=== PATIENT | female | born 1945 | race Caucasian/White ===

== ENCOUNTER 2017-02-05 12:44 | Inpatient (IN) | payer OTHER, MEDICARE ==
[~2017-02-05] VITALS: Ht 175.3 cm; Wt 125.8 kg
[~2017-02-05 12:44] MED LIST: KEFLEX500 M1 PO
--- NOTE | 2017-02-05 12:50 | ED GENERAL ADULT ---
History of Present Illness General Chief Complaint: General Adult Stated Complaint: BIBA UNABLE TO AMBULATE X2 WEEKS Source: patient, old records, EMS Exam Limitations: no limitations Vital Signs & Intake/Output Vital Signs & Intake/Output Vital Signs Date Time Temp Pulse Resp B/P B/P Pulse O2 O2 Flow FiO2 Mean Ox Delivery Rate 02/05 1832 97.0 51 18 148/60 97 Room Air 02/05 1732 97.5 51 18 148/63 95 Room Air Room Air 02/05 1452 46 18 139/65 94 Room Air 02/05 1309 95 Room Air 02/05 1248 97.3 46 18 133/60 94 Room Air Allergies Coded Allergies: sitagliptin (From 2theloo) (Severe, THROAT CLOSURE 02/05/17) Reconcile Medications Amlodipine Besylate 10 MG TABLET 1 TAB PO DAILY HEART (Reported) Aspirin (Aspirin*) 81 MG TAB.CHEW 1 TAB PO DAILY HEART HEALTH (Reported) Calcitriol 0.5 MCG CAPSULE 1 CAP PO DAILY SUPPLEMENT (Reported) Carvedilol 12.5 MG TABLET 1 TAB PO BID HEART (Reported) Febuxostat (Uloric) 40 MG TABLET 1 TAB PO DAILY UNKNOWN (Reported) Torsemide 20 MG TABLET 1 TAB PO DAILY WATER RETENTION (Reported) Triage Nurses Notes Reviewed? yes Onset: Abrupt Duration: week(s): (1), constant, continues in ED, getting worse Timing: single episode today Severity: mild, moderate Severity Numbers: 7 No Modifying Factors: none LMP (ages 10-50): post menopausal : No Patient currently breastfeeds: No HPI: 72-year-old female with past medical history of CKD, hypertension, and diabetes presents for evaluation of bilateral lower extremity edema. Patient reports that her leg started swelling about 2 weeks ago and have gradually been getting worse. She notified her primary care doctor who advised to double the dose of her diuretic she has been doing for the past week without any improvement. Patient is reporting pain in her left ankle that gets worse with any type of movement. She states that she has been having a very difficult time walking due to the lower extremity edema. She denies any chest pain, shortness of breath, recent trauma, recent surgery, malignancy, previous history of DVT, fever, estrogen use, smoking, abdominal pain, back pain, hemoptysis or any other associated symptoms. (ROME CHICAS PA-C) Past History Travel History Traveled to [place] past 21 day No Medical History Any Pertinent Medical History? see below for history Cardiovascular: hypertension Musculoskeletal: gout Endocrine: diabetes Blood Disorders: anemia Surgical History Surgical History: non-contributory Psychosocial History What is your primary language Yi Family History Hx Contributory? Yes (ROME CHICAS PA-C) Review of Systems Review of Systems Constitutional: Reports: no symptoms. EENTM: Reports: no symptoms. Respiratory: Reports: no symptoms. Cardiovascular: Reports: no symptoms, edema. GI: Reports: no symptoms. Genitourinary: Reports: no symptoms. Musculoskeletal: Reports: see HPI (ANKLE), joint swelling. Skin: Reports: no symptoms. Neurological/Psychological: Reports: no symptoms. Hematologic/Endocrine: Reports: no symptoms. Immunologic/Allergic: Reports: no symptoms. All Other Systems: Reviewed and Negative (ROME CHICAS PA-C) Physical Exam Physical Exam General Appearance: well developed/nourished, no apparent distress, alert, obese Head: atraumatic, normal appearance Eyes: Bilateral: normal appearance, PERRL, EOMI. Ears, Nose, Throat: normal pharynx, normal ENT inspection, hearing grossly normal Neck: normal inspection, supple, full range of motion Respiratory: normal breath sounds, chest non-tender, no respiratory distress, lungs clear Cardiovascular: regular rate/rhythm, edema, normal peripheral pulses Peripheral Pulses: 2+ radial (R), 2+ radial (L), 1+ tibialis posterior (R), 1+ tibialis posterior ( L) Gastrointestinal: normal bowel sounds, soft, non-tender, no organomegaly Back: normal inspection, normal range of motion, no vertebral tenderness Extremities: normal capillary refill, limited range of motion, swelling, tenderness Neurologic/Psych: no motor/sensory deficits, awake, alert, oriented x 3, abnormal gait Skin: intact, normal color, warm/dry Lymphatic: no anterior cervical johana Comments: There is bilateral severe nonpitting edema located in both lower extremities. There is no erythema. There is pain with palpation of the bilateral heels and ankles. No bruising. Range of motion of the bilateral lower extremities is decreased due to pain and swelling. Patient is unable to ambulate on her own. She is unable to bear weight. Core Measures ACS in differential dx? Yes CVA/TIA Diagnosis: No Severe Sepsis Present: No Septic Shock Present: No (ROME CHICAS PA-C) Progress Differential Diagnoses I considered the following diagnoses in my evaluation of the patient: [DVT, anasarca, CHF, chronic kidney disease, kidney failure, electrolyte disturbance, acute coronary syndrome, PE, arrhythmia] Plan of Care: Orders Procedure Date/time Status Heart Healthy Diet 02/06 B Active TROPONIN LEVEL 02/06 0600 Active CBC WITHOUT DIFFERENTIAL 02/06 0600 Active BASIC ELECTROLYTES PLUS BUN&CR 02/06 06 Active EKG 02/06 0600 Active TROPONIN LEVEL 02/05 2000 Active EKG 02/05 2000 Active Hemo-Dialysis 02/05 1901 Active FingerStick- Glucose 02/05 1736 Active Vital Signs 02/05 1732 Active Teach/Educate 02/05 1732 Active Pain Treatment and Response 02/05 1732 Active Nutritional Intake, Monitor 02/05 1732 Active Isolation 02/05 1732 Active Intake & Output 02/05 1732 Active Patient Care Conference 02/05 1732 Active Activity/Ambulation 02/05 1732 Active US-RENAL/KIDNEY 02/05 1722 Active Weight 02/05 1722 Active Intake & Output 02/05 1722 Active ECHOCARDIOGRAM 02/05 1722 Active Admit to inpatient 02/05 1702 Active Code Status 02/05 1702 Active Pathway - chart 02/05 1649 Active House Staff 02/05 1649 Active Patient Data 02/05 1649 Active Code Status 02/05 1649 Complete Patient Data 02/05 1620 Active EKG 02/05 1317 Active Telemetry/Lgsw 02/05 1316 Active URINALYSIS 02/05 1316 Active TROPONIN LEVEL 02/05 1316 Complete MAGNESIUM 02/05 1316 Complete D-DIMER 02/05 1316 Complete COMPREHENSIVE METABOLIC PANEL 02/05 1316 Complete CBC WITHOUT DIFFERENTIAL 02/05 1316 Complete B-TYPE NATRIURETIC PEP (BNP) 02/05 1316 Complete VTE Mechanical Prophylaxis 02/05 UNK Active Telemetry/Lgsw 02/05 UNK Active Current Medications Sig/Cole Start time Last Medication Dose Stop Time Status Admin Aspirin 81 MG DAILY 02/06 1000 AC (Aspirin) Acetaminophen 325 MG Q6 PRN 02/05 1700 AC (Tylenol) Heparin Sodium 5,000 UNIT Q8 02/05 1648 AC (Porcine) Laboratory Tests 02/05/17 1320: Anion Gap 17 H, Estimated GFR 7 L, BUN/Creatinine Ratio 20.0, Glucose 137 H, Calcium 9.1, Magnesium 2.4 H, Total Bilirubin 0.9, AST 12 L, ALT 19, Alkaline Phosphatase 170 H, Troponin I < 0.01, [id number]-[id number] Pept 44406 H, Total Protein 6.6, Albumin 3.7, Globulin 2.9, Albumin/Globulin Ratio 1.3, D-Dimer High Sensitivty 305 H, CBC w Diff NO MAN DIFF REQ, RBC 4.21, MCV 81.4, MCH 26.5 L, RDW 17.7 H, MPV 8.5, Gran % 74.2, Lymphocytes % 11.6 L, Monocytes % 8.8, Eosinophils % 4.6, Basophils % 0.8, Absolute Granulocytes 7.2 H, Absolute Lymphocytes 1.1 L, Absolute Monocytes 0.9 H, Absolute Eosinophils 0.5, Absolute Basophils 0.1, PUBS MCHC 32.5 L 1:30 PM: Patient will have a workup to evaluate lower extremity edema including blood work and ultrasound. We'll follow up on results. 4:08 PM: Patient is unable to ambulate due to swelling. Her creatinine is back at 6.2 and we do not have a previous lab results to compare to. Patient reports that normally she runs in the 2-3 range. Additionally BNP is back at 14,900. EKG is also showing a junctional escape rhythm which could represent ischemia however patient is not complaining of any chest pain or shortness of breath. She is also on a beta matt which may be worsening the bradycardia and kidney disease. Patient's edema may be multifactorial related to both chronic kidney disease and CHF. Patient needs to be admitted for further evaluation. Spoke with the hospitalist and MOD. Discussed with Dr. Campoverde and he agrees the plan. (JUAN FRANCISCO REYES,ROME) Diagnostic Imaging: Viewed by Me: Radiology Read, Ultrasound. Initial ED EKG: junctional ewscape rhythm, left afb, abnorma t waves consider ischemia in lateral leads Comments: ATIENT: GILL CUETO PRESENT AGE: 72 PATIENT ACCOUNT NO: [id number] : 47 LOCATION: [facility] ORDERING PHYSICIAN: ROME CHICAS PA-C SERVICE DATE: 02/05/17 EXAM TYPE: RAD - XRY-PORTABLE CHEST XRAY EXAMINATION: XR PORTABLE CHEST CLINICAL INFORMATION: Lower extremity edema COMPARISON: None TECHNIQUE: Portable frontal view of the chest was obtained. FINDINGS: The lung volumes are low. The cardiac silhouette is prominent. There is pulmonary venous redistribution. There is elevation of the right hemidiaphragm. There is blunting of the right costophrenic angle questionable for a small right pleural effusion. The left lung is clear. There is no left pleural effusion. There is no pneumothorax. IMPRESSION: Prominent cardiac silhouette. Elevated right hemidiaphragm. Low lung volumes. Question pulmonary venous redistribution and small right pleural effusion. DICTATED BY: RAMU CARUSO MD. DATE/TIME DICTATED:02/05/171334 DRUG ENFORCEMENT AGENT:COCHRAN DATE/TIME TRANSCRIBED:02/05/171334 CONFIDENTIAL, DO NOT COPY WITHOUT APPROPRIATE AUTHORIZATION. <Electronically signed in Other Vendor System> SIGNED BY: RAMU CARUSO MD. [id number] PATIENT: GILL CUETO PRESENT AGE: 72 PATIENT ACCOUNT NO: [id number] : 47 LOCATION: [facility] ORDERING PHYSICIAN: ROME CHICAS PA-C SERVICE DATE: 02/05/17 EXAM TYPE: US - US-EXT BILAT VENOUS DOPPLER EXAMINATION: US TRIPLEX OF LOWER EXTREMITIES, BILATERAL CLINICAL INFORMATION: Swelling COMPARISON: None TECHNIQUE: Color-flow triplex imaging with spectral analysis and compression Doppler were performed on the lower extremities. FINDINGS: Respiratory variation, normal compression and augmented flow are noted throughout the lower extremities. The visualized common femoral vein, superficial femoral vein, profunda femoral vein, popliteal vein and midcalf peroneal and posterior tibial venous segments show no evidence of deep venous thrombosis. There is no Fierro's cyst. IMPRESSION: Normal triplex scan without evidence of deep venous thrombosis involving the lower extremities. DICTATED BY: RAMU CARUSO MD. DATE/TIME DICTATED:02/05/171516 DRUG ENFORCEMENT AGENT:RAD.COCHRAN DATE/TIME TRANSCRIBED:02/05/171516 CONFIDENTIAL, DO NOT COPY WITHOUT APPROPRIATE AUTHORIZATION. <Electronically signed in Other Vendor System> SIGNED BY: RAMU CARUSO MD [id number] (JUAN FRANCISCO REYES,ROME) Departure Departure Disposition: STILL A PATIENT Condition: Stable Clinical Impression Primary Impression: Chronic kidney disease (CKD) Qualifiers: Chronic kidney disease stage: stage 4 (severe) Qualified Code: N18.4 - Chronic kidney disease, stage 4 (severe) Secondary Impressions: Anasarca associated with disorder of kidney Departure Forms: Customer Survey General Discharge Information Admission Note Spoke With: DIOR NOVAK MD Documentation of Exam: Documentation of any treatments & extenuating circumstances including Concerns Regarding Discharge (functional status, medication knowledge or non-compliance, living conditions, etc.) that warrant an admission rather than observation: Patient requires admission for chronic kidney disease and anasarca. He is also unable to move around her home by herself to lower extremity edema. Her creatinine is elevated to 6.2 which is twice her usual level. She will need nephrology consult, cardiology consult, serial labs, IV medications, physical therapy consult. (ROME CHICAS PA-C) PA/HYDROTREATER OPERATOR Co-Sign Statement Statement: ED Attending supervision documentation- [X] I saw and evaluated the patient. I have also reviewed all the pertinent lab results and diagnostic results. I agree with the findings and the plan of care as documented in the PA's/HYDROTREATER OPERATOR's documentation. [] I have reviewed the ED Record and agree with the PA's/HYDROTREATER OPERATOR's documentation. [] Additions or exceptions (if any) to the PAs/HYDROTREATER OPERATOR's note and plan are summarized below: [] (LESLEY CHARLTON,SUDHEER Gann) Critical Care Note Critical Care Note Critical Care Time: non-applicable (ROME CHICAS PA-C) ED Attending Observation Initial Observation Note: I have seen and personally examined GILL CUETO on 02/05/17 at 1758. I agree with the current emergency department documentation. The disposition (admission or discharge) is uncertain at this time, she needs a period of observation for the following reason(s): The ED Nurse caring for this patient has been personally informed as to what the patient is being observed for. (ROME CHICAS PA-C)
--- NOTE | 2017-02-05 12:55 | NUR ---
AZAM FROM HOME W/ C/O BLE EDEMA X'S 2 WEEKS. HAS NOT BEEN SEEN BY PCP ALTHOUGH SHE CALLED TODAY. BEEN UNABLE TO AMBULATE D/T EDEMA. PATIENT HAS RECENTLY BEEN TAKEN OFF ALL DM MEDICATIONS. TO BE STARTED ON DIALYSIS IN THE NEAR FUTURE.
--- NOTE | 2017-02-05 13:23 | NUR ---
LABS SENT (BLUE, 2 GOLD, LAV & HYATT)
[2017-02-05 13:30] LABS: ABSOLUTE BASOPHIL COUNT 0.1 /CUMM (0.0-0.2); ABSOLUTE EOSINOPHIL COUNT 0.5 /CUMM (0.0-0.7); ABSOLUTE GRANULOCYTE CT 7.2 /CUMM (1.4-6.5); ABSOLUTE LYMPH COUNT 1.1 /CUMM (1.2-3.4); ABSOLUTE MONOCYTE COUNT 0.9 /CUMM (0.10-0.60); BASOPHIL % 0.8 % (0.0-2.0); EOSINOPHIL % 4.6 % (0-5); GRANULOCYTE % 74.2 % (42.2-75.2); HEMATOCRIT 34.3 % (37-47); MEAN CORPUSCULAR HGB 26.5 PG (27.0-31.0); MEAN CORPUSCULAR HGB CONC 32.5 G/DL (33.0-37.0); MEAN CORPUSCULAR VOLUME 81.4 FL (81.0-99.0); MEAN PLATELET VOLUME 8.5 FL (7.4-10.4); PLATELET COUNT 158 /CUMM (130-400); RBC DISTRIBUTION WIDTH 17.7 % (11.5-14.5); RED BLOOD CELL CT 4.21 /CUMM (4.20-5.40); WHITE BLOOD CELL COUNT 9.7 /CUMM (4.8-10.8)
--- NOTE | 2017-02-05 13:39 | RADIOLOGY REPORT ---
EXAMINATION: XR PORTABLE CHEST CLINICAL INFORMATION: Lower extremity edema COMPARISON: None TECHNIQUE: Portable frontal view of the chest was obtained. FINDINGS: The lung volumes are low. The cardiac silhouette is prominent. There is pulmonary venous redistribution. There is elevation of the right hemidiaphragm. There is blunting of the right costophrenic angle questionable for a small right pleural effusion. The left lung is clear. There is no left pleural effusion. There is no pneumothorax. IMPRESSION: Prominent cardiac silhouette. Elevated right hemidiaphragm. Low lung volumes. Question pulmonary venous redistribution and small right pleural effusion.
[2017-02-05] MEDS ORDERED: AMLODIPINE BESY10 M1 PO (13:49)
[2017-02-05] MEDS ORDERED: TORSEMIDE20 M1 PO (13:49)
[2017-02-05] MEDS ORDERED: CARVEDILOL12.5 M1 PO (13:49)
[2017-02-05] MEDS ORDERED: ULORIC40 M1 PO (13:49)
[2017-02-05] MEDS ORDERED: ASPIRIN81 M4 PO (13:50)
[2017-02-05] MEDS ORDERED: CALCITRIOL0.5 MC1 PO (13:50)
--- NOTE | 2017-02-05 13:58 | NUR ---
CRITICAL TEST RESULTS [id number] GILL CUETO 72 F TESTS AND RESULTS: BUN 124,CREATNINE 6.2 Results received and read back by: SHELLIE WEISS Results received date and time: 02/05/17 1359 The following provider was notified of the results, and read the results back: ROME JARAMILLO Notified date and time: 02/05/17 at 1357
--- NOTE | 2017-02-05 15:25 | ULTRASOUND REPORT ---
EXAMINATION: US TRIPLEX OF LOWER EXTREMITIES, BILATERAL CLINICAL INFORMATION: Swelling COMPARISON: None TECHNIQUE: Color-flow triplex imaging with spectral analysis and compression Doppler were performed on the lower extremities. FINDINGS: Respiratory variation, normal compression and augmented flow are noted throughout the lower extremities. The visualized common femoral vein, superficial femoral vein, profunda femoral vein, popliteal vein and midcalf peroneal and posterior tibial venous segments show no evidence of deep venous thrombosis. There is no Fierro's cyst. IMPRESSION: Normal triplex scan without evidence of deep venous thrombosis involving the lower extremities.
--- NOTE | 2017-02-05 16:24 | History & Physical ---
ASIFANJELICACHRISTOPHER 02/05/17 1624: General Information and HPI MD Statement: I have seen and personally examined GILL CUETO and documented this H&P. The patient is a 72 year old F who presented with a patient stated chief complaint of [leg edema]. Source of Information: patient, family Exam Limitations: no limitations History of Present Illness: Patient is 72-year-old female with past medical history of CKD (baseline creatinine around 2.5, as per patient), , diet-controlled diabetes, hypertension ,gout who presents to the ED for evaluation of bilateral lower extremity edema. Patient receives all her care at [facility]. She has baseline kidney disease for which she was on torsemide 20 mg daily. Her kidney doctor is Dr. Reyes in [place]. Patient started noticing worsening of her bilateral lower leg edema. She called her ore washer who advised her to take double the dose of diuretics. She has been taking torsemide twice a day since then. However there has been no improvement in her leg edema. She now reports difficulty with ambulation and any movement. Denies any chest pain, shortness of breath, altered mental status, nausea, vomiting, urinary or bowel symptoms. She reports that she has been having regular blood checks every month and her creatinine numbers have been stable around 2.5. She has a AV fistula in her right arm and her ore washer was eventually planning to put her on dialysis. Daughter reports that she has been very weak and lethargic over the past few days. She has no history of cardiac disease and reports that she has been started on carvedilol due to tachycardia in the past. She has anemia due to kidney disease for which she is on oral iron supplementation. She has been on IV iron in the past but has been unable to tolerate it. In the ED vitals were temperature 97.3, pulse 46, respiration 18, blood pressure 133/60, saturating 95% on room air. Pertinent labs showed H&H of 11.1 /35.3(no baseline), MCV 81.4, sodium 142, potassium 4.1, carbon dioxide 17, anion gap of 17, BUN 124, creatinine 6.2( baseline 2.5 as per the patient), magnesium 2.4, alkaline phosphatase 170, troponins less than 0.01, BNP 14,900, d-dimer 305 UA pending EKG showed questionable junctional escape rhythm, prolonged UT, bradycardia Chest x-ray showed prominent cardiac silhouette, questionable pulmonary venous redistribution/small right-sided pleural effusion Ultrasound legs, negative for DVT Allergies/Medications Allergies: Coded Allergies: sitagliptin (From THANG) (Severe, THROAT CLOSURE 02/05/17) Home Med list Amlodipine Besylate 10 MG TABLET 1 TAB PO DAILY HEART (Reported) Aspirin (Aspirin*) 81 MG TAB.CHEW 1 TAB PO DAILY HEART HEALTH (Reported) Calcitriol 0.5 MCG CAPSULE 1 CAP PO DAILY SUPPLEMENT (Reported) Carvedilol 12.5 MG TABLET 1 TAB PO BID HEART (Reported) Febuxostat (Uloric) 40 MG TABLET 1 TAB PO DAILY UNKNOWN (Reported) Torsemide 20 MG TABLET 1 TAB PO DAILY WATER RETENTION (Reported) Past History Travel History Traveled to [place] past 21 day No Medical History Cardiovascular: hypertension Musculoskeletal: gout Endocrine: diabetes Blood Disorders: anemia Surgical History Surgical History: non-contributory Review of Systems Review of Systems Constitutional: Reports: malaise, weakness. EENTM: Reports: no symptoms. Cardiovascular: Reports: edema, peripheral edema. Respiratory: Reports: no symptoms. GI: Reports: no symptoms. Genitourinary: Reports: no symptoms. Musculoskeletal: Reports: back pain. Skin: Reports: no symptoms. Neurological/Psychological: Reports: no symptoms. Hematologic/Endocrine: Reports: no symptoms. Exam & Diagnostic Data Last 24 Hrs of Vital Signs/I&O Vital Signs Date Time Temp Pulse Resp B/P B/P Pulse O2 O2 Flow FiO2 Mean Ox Delivery Rate 02/05 1452 46 18 139/65 94 Room Air 02/05 1309 95 Room Air 02/05 1248 97.3 46 18 133/60 94 Room Air Intake & Output 02/05 1600 02/05 0800 02/05 0000 Intake Total Output Total Balance Patient 124.738 kg Weight Weight Estimated Measurement Method Physical Exam General Appearance Alert, Oriented X3, Cooperative, Mild Distress Skin No Rashes, No Breakdown Skin Temp/Moisture Exam: Warm/Dry Sepsis Skin Exam (color): Normal for Ethnicity HEENT Atraumatic, PERRLA, EOMI, Mucous Membr. moist/pink Neck Supple, No JVD Lymphatic Cervical nl Cardiovascular Normal S1, Normal S2, No Murmurs, bradycardia Lungs diminished breath sounds bilaterally Abdomen Normal Bowel Sounds, Soft, No Tenderness Neurological Normal Speech, Sensation Intact Extremities 3+ pedal edema upto mid thigh bilaterally Vascular Normal Pulses Last 24 Hrs of Labs/Rayshawn: Laboratory Tests 02/05/17 1320: Anion Gap 17 H, Estimated GFR 7 L, BUN/Creatinine Ratio 20.0, Glucose 137 H, Calcium 9.1, Magnesium 2.4 H, Total Bilirubin 0.9, AST 12 L, ALT 19, Alkaline Phosphatase 170 H, Troponin I < 0.01, [id number] Pept 41247 H, Total Protein 6.6, Albumin 3.7, Globulin 2.9, Albumin/Globulin Ratio 1.3, D-Dimer High Sensitivty 305 H, CBC w Diff NO MAN DIFF REQ, RBC 4.21, MCV 81.4, MCH 26.5 L, RDW 17.7 H, MPV 8.5, Gran % 74.2, Lymphocytes % 11.6 L, Monocytes % 8.8, Eosinophils % 4.6, Basophils % 0.8, Absolute Granulocytes 7.2 H, Absolute Lymphocytes 1.1 L, Absolute Monocytes 0.9 H, Absolute Eosinophils 0.5, Absolute Basophils 0.1, PUBS MCHC 32.5 L Assessment/Plan Assessment: Patient is 72-year-old female with past medical history of CKD (baseline creatinine around 2.5, as per patient), , diet-controlled diabetes, hypertension ,gout who presents to the ED for evaluation of bilateral lower extremity edema. In the ED vitals were temperature 97.3, pulse 46, respiration 18, blood pressure 133/60, saturating 95% on room air. Pertinent labs showed H&H of 11.1 /35.3(no baseline), MCV 81.4, sodium 142, potassium 4.1, carbon dioxide 17, anion gap of 17, BUN 124, creatinine 6.2( baseline 2.5 as per the patient), magnesium 2.4, alkaline phosphatase 170, troponins less than 0.01, BNP 14,900, d-dimer 305 UA pending EKG showed questionable junctional escape rhythm, prolonged UT, bradycardia Chest x-ray showed prominent cardiac silhouette, questionable pulmonary venous redistribution/small right-sided pleural effusion Ultrasound legs, negative for DVT Assessment * Acute kidney injury on CKD (no baseline available last creatinine 2.5 per patient) * Anasarca due to kidney injury * New-onset CHF?(Elevated proBNP) * Right hand AV fistula * Bradycardia * Abnormal EKG,? Junctional escape rhythm versus first degree heart block * Anemia of chronic disease * Gout * Diet-controlled diabetes/ was taken of Januvia due to non tolerance * Hypertension Plan * Admit patient to telemetry * 3 sets of troponin and EKG to rule out ACS * Echocardiogram ordered * Strict I's and O's, weight checks * Nephrology consult for worsening kidney function and generalized anasarca * UA ordered and pending. HoldingTorsemide. * Renal ultrasound to rule out obstruction * Cardiology consult for abnormal EKG and new-onset CHF * Holding AV saloni blocking agents beta matt and CCB FOR ?junctional rhythm/ bradycardia. Blood pressure well controlled hydralazine when necessary as needed. * We'll try to get old records from ore washer and telemarketer in [place],her kidney doctor is Dr. Reyes in [place] * Holding fuboxtat gout * DVT prophylaxis subcutaneous heparin * Heart healthy diet * Mild pain pathway * Full code As Ranked By This Provider Problem List: 1. Anasarca associated with disorder of kidney 2. Chronic kidney disease (CKD) Qualifiers Chronic kidney disease stage: stage 4 (severe) Qualified Code: N18.4 - Chronic kidney disease, stage 4 (severe) Core Measures/Miscellaneous Acute Coronary Syndrome ACS Diagnosis: No Cerebrovascular Accident CVA/TIA Diagnosis: No Congestive Heart Failure CHF Diagnosis: No VTE (View Protocol) VTE Risk Factors: Age > 40, Obesity [facility] prophylaxis d/t: No contraindications No VTE Pharm Prophylaxis d/t: No contraindications VTE Diagnosis: No VTE Type: NONE VTE Confirmed by (Test): NONE Sepsis (View Protocol) Severe Sepsis Present: No Septic Shock Septic Shock Present: No Miscellaneous Documentation Attending Case Discussed With: DONNA BARBOUR,ED Robles Primary Care Physician: PATIENT HAS NO PRIMARY CARE DR Patient sees these Specialists ore washer Dr Reyes in [place] Level of Patient Care: Telemetry DIOR NOVAK 02/05/17 1624: Attending MD Review Statement Attending Statement Attending MD Statement: examined this patient, discuss w/resident/PA/NUCLEAR MEDICINE TECHNICIAN, agreed w/resident/PA/NUCLEAR MEDICINE TECHNICIAN, discussed with family, reviewed EMR data (avail), discussed with nursing, discussed with case mgmt, reviewed images, amended to note Attending Assessment/Plan: ASSESSMENT 1. Acute kidney injury on ckd 2. elevated pro bnp 3. junctional rythm abnormal ekg on b matt 4. anemia of chronic disease 5. b/l lower extremity swelling PLAN Admit to telemetry serial cardiac enzymes and ekg, cardio consult, nephro consult, avoid nephrotoxic agents, diuretics use as per nephrology, monitor i/o. hydralazine for bp control, urine studies, USG renal, STOP b blcoker for now, avoid amlodipine. obtain previous records, monitor creatinine gi/dvt prophyalxis plan of care d/wed patient bedside
--- NOTE | 2017-02-05 17:14 | NUR ---
HEART HEALTHY TRAY ORDERED.
--- NOTE | 2017-02-05 17:31 | NUR ---
PT REFUSING HEPARIN AND MOTRIN AT THIS TIME. PT ASSISTED TO REPOSITION IN STRETCHER AND SET UP WITH DINNER TRAY.
--- NOTE | 2017-02-05 17:32 | NUR ---
PT GOING TO ROOM 172 PER NURSE CALLING FOR REPORT.
--- NOTE | 2017-02-05 17:42 | NUR ---
REPORT GIVEN TO CLAY SANTIAGO. TRANSPORT BOOKED AT THIS TIME.
[2017-02-05 18:32] VITALS: BP 148/60
[2017-02-05 23:42] VITALS: BP 114/72
--- NOTE | 2017-02-06 07:19 | PN- Housestaff ---
STU BARBOUR,SOLOMNO 02/06/17 0719: Subjective Follow-up For: RAMO on CKD Lower extremity swelling History of AFib/Flutter Tele-Events Since Last Visit: Sinus Bradycardia 1st degree AVB HR 43-50 PACs Subjective: Patient seen and examined. She is seen sitting upright in her bed resting comfortably. She appears to be in no acute distress. She reports that the swelling in her legs appears mildly improved, however admits that they remain grossly swollen. She otherwise feels fine and has no new subjective complaints. Additionally she denies any headache, fever, chills, chest pain, palpitations, shortness of breath, nausea, vomiting, diarrhea. Review of Systems Constitutional: Reports: see HPI. Objective Last 24 Hrs of Vital Signs/I&O Vital Signs Date Time Temp Pulse Resp B/P B/P Pulse O2 O2 Flow FiO2 Mean Ox Delivery Rate 02/06 1619 97.7 64 18 122/62 92 Room Air 02/06 1540 51 122/64 02/06 1339 118/62 02/06 0819 97.5 48 18 140/62 92 Room Air 02/05 2342 97.5 52 18 114/72 94 Room Air Intake & Output 02/06 1600 02/06 0800 02/06 0000 Intake Total 120 360 Output Total 400 400 50 Balance -400 -280 310 Intake, Oral 120 360 Output, Urine 400 400 50 Patient 123.831 kg 123.519 kg Weight Weight Chair scale Standing Scale Measurement Method Physical Exam General Appearance: Alert, Oriented X3, Cooperative, No Acute Distress Other Physical Findings: General- well developed, morbidly obese elderly woman in no acute distress HEENT- NCAT, PERRL, EOMI, anicteric sclera Chest- S1, S2 w/o m/g/r Lung- CTA bilaterally Abdomen- Soft, obese, nontender, nondistended Neuro- Awake and alert, CN II-XII grossly intact Ext- 4+ bilatearl lower extremity pitting edema Current Medications: Current Medications Sig/Cole Start time Last Medication Dose Route Stop Time Status Admin Acetaminophen 325 MG Q6 PRN 02/05 1700 AC PO Aspirin 81 MG DAILY 02/06 1000 AC 02/06 PO 0858 Calcitriol 0.5 MCG DAILY 02/06 1618 AC 02/06 PO 1812 Febuxostat 40 MG DAILY 02/06 1130 AC 02/06 PO 1339 Heparin Sodium 5,000 UNIT Q8 02/05 1648 AC (Porcine) SC Hydralazine HCl 25 MG BID 02/06 1153 AC 02/06 PO 1339 Non-Formulary 0 SEE ADMIN CRITERIA 02/06 1130 CAN Medication ANY Last 24 Hrs of Lab/Rayshawn Results Last 24 Hrs of Labs/Mics: Laboratory Tests 02/06/17 2235: Sodium Pending, Potassium Pending, Chloride Pending, Carbon Dioxide Pending, Anion Gap Pending, BUN Pending, Creatinine Pending, BUN/Creatinine Ratio Pending 02/06/17 1425: Anion Gap 15, Estimated GFR 7 L, BUN/Creatinine Ratio 19.7, Hepatitis A IgM Ab NONREACTIVE, Hep Bs Antigen NONREACTIVE, Hep B Core IgM Ab Conf NONREACTIVE, Hepatitis C Antibody NONREACTIVE 02/06/17 1038: Urine Color YEL, Urine Clarity CLDY H, Urine pH 6.0, Ur Specific [place] 1.020, Urine Protein 100 H, Urine Ketones NEG, Urine Nitrite NEG, Urine Bilirubin NEG, Urine Urobilinogen 0.2, Ur Leukocyte Esterase MOD H, Ur Microscopic SEDIMENT EXAMINED, Urine RBC 10-15 H, Urine WBC > 75 H, Ur Epithelial Cells RARE, Urine Bacteria MANY H, Hyaline Casts RARE H, Urine Hemoglobin LARGE H, Urine Glucose NEG 02/06/17 0723: Anion Gap 15, Estimated GFR 7 L, BUN/Creatinine Ratio 19.7, Hemoglobin A1c Pending, Phosphorus 7.8 H, Troponin I < 0.01, TSH &T3 &Free T4 Intrp 2.680, CBC w Diff NO MAN DIFF REQ, RBC 4.00 L, MCV 81.9, MCH 26.8 L, RDW 17.0 H, MPV 9.0 , Gran % 74.6, Lymphocytes % 10.7 L, Monocytes % 9.2, Eosinophils % 4.8, Basophils % 0.7, Absolute Granulocytes 6.6 H, Absolute Lymphocytes 1.0 L, Absolute Monocytes 0.8 H, Absolute Eosinophils 0.4, Absolute Basophils 0.1, PUBS MCHC 32.7 L Microbiology 02/06 1512 URINE ROUT: Urine Culture - RECD Assessment/Plan Assessment: 72 year old woman with multiple medical problems significant for chronic kidney disease, right upper extremity AV fistula, NIDDM, HTN, and gout brought in by ambulance due to bilateral lower extremity edema. #Acute Kidney Injury #Chronic Kidney Disease #Hypertension Patient of live source operator Dr. Reyes. She reports baseline creatinine of around 2.9. Vitals were within normal limits upon ED evaluation. Labs were significant for BUN/Cr 124/6.2 and BNP 14,900, d-dimer 305. Renal Ultrasound showed bilateral renal cortical atrophy with live source operator without any obstructuon and a moderate amount of asictic fluid. -Telemetry -Strict I&O's, daily weights -Hold Torsemide -Cardiologuy/Nephrology consults -Records from Dr. Espinal -BEP x3 daily per nephrology -F/U hepatitis/HIV panels History of Gout-Febuxostat 40mg PO Daily Diet-Acetaminophen DVT PPx-subcutaneous heparin Code Status-FULL CODE Problem List: 1. Anasarca associated with disorder of kidney 2. Chronic kidney disease (CKD) Pain Ratin Pain Location: None Pain Goal: Remain pain free Pain Plan: See assessment Tomorrow's Labs & Rationales: BEP CBC DONNA BARBOUR,ED 02/06/17 1313: Attending MD Review Statement Attending Statement Attending MD Statement: examined this patient, discuss w/resident/PA/CNC MECHANIC, agreed w/resident/PA/CNC MECHANIC, reviewed EMR data (avail), discussed with nursing, discussed with case mgmt Attending Assessment/Plan: 72-year-old female past medical history of hypertension, paroxysmal A. fib and atrial tachycardia not on anticoagulation due to bleeding issues and CKD with a baseline creatinine in [place] (with a live source operator there done 12/28) in the threes. She is here with RAMO on CKD with a creatinine going up to 6, and severe acute on chronic lower extremity edema. She is maintaining a saturation on room air and able to talk in full sentences and lie flat and I don't think that she is volume overloaded in terms of her lungs and Dr. Stevens feels that the amlodipine that was started about a month ago for hypertension may have exacerbated her acute and chronic edema. She doesn't have any urgent absolute indications for dialysis and she does have a fistula as she was being prepared for dialysis in the long-term. At this point we are going to hold her Toresmide , rule out renal obstruction and watch the creatinine closely. Have cardiology see her to comment on the junctional rhythm/paroxysmal A. fib given that the heart rate is 48-50. Hold all AV saloni blocking and beta-blocking drugs. We'll use hydralazine for blood pressure control and follow closely.
[2017-02-06 08:19] VITALS: BP 140/62
[2017-02-06 08:38] LABS: ABSOLUTE BASOPHIL COUNT 0.1 /CUMM (0.0-0.2); ABSOLUTE EOSINOPHIL COUNT 0.4 /CUMM (0.0-0.7); ABSOLUTE GRANULOCYTE CT 6.6 /CUMM (1.4-6.5); ABSOLUTE MONOCYTE COUNT 0.8 /CUMM (0.10-0.60); BASOPHIL % 0.7 % (0.0-2.0); EOSINOPHIL % 4.8 % (0-5); GRANULOCYTE % 74.6 % (42.2-75.2); HEMATOCRIT 32.7 % (37-47); MEAN CORPUSCULAR HGB 26.8 PG (27.0-31.0); MEAN CORPUSCULAR HGB CONC 32.7 G/DL (33.0-37.0); MEAN CORPUSCULAR VOLUME 81.9 FL (81.0-99.0); PLATELET COUNT 143 /CUMM (130-400); WHITE BLOOD CELL COUNT 8.9 /CUMM (4.8-10.8)
--- NOTE | 2017-02-06 08:53 | PN- Student ---
TORO KEATING 02/06/17 0844: Subjective Subjective: Patient was seen and examined this morning. Patient is resting comfortably in chair with legs elevated. She doesn't report any overnight events. She states that her legs feel better but don't look better. Patient was able to walk on feet to the bathroom with no difficulty. Denies chest pain, dyspnea, nausea, vomiting, headache, difficulty urinating, abdominal pain. Patient presented yesterday for worsening edema, weakness/feeling "out of it" for about a week. Last week she wasn't able to lift her legs up. She states that 10 years ago, she had a bone infection and was found to have kidney disease when testing labs. She has been following up with Dr. Reyes in [place] every month for the past 7-8 years. Patient states a baseline creatinine of 2.5. Vascular surgeon in [place], Dr. Pacheco, had placed a right arm fistula last June and has an appointment next week for an U/S to confirm placement. She also states that for the past 2-3 yost, she has been admitted as per Dr. Reyes for lab abnormalities, including hyperkalemia. Patient states she was treated with fluids and medication. About a year ago, patient was found to be tachycardiac (~150) at an appointment which prompted Dr. Reyes to send patient to ED, where patient said she was "zapped" and placed on medication. In December of this year, patient had a fall and had hit her head. Patient was followed up with a negative CT scan. Current Medications Sig/Cole Start time Last Medication Dose Route Stop Time Status Admin Acetaminophen 325 MG Q6 PRN 02/05 1700 AC PO Aspirin 81 MG DAILY 02/06 1000 AC PO Heparin Sodium 5,000 UNIT Q8 02/05 1648 AC (Porcine) SC Ibuprofen 600 MG Q6 02/05 1800 DC PO Overnight events: sinus bradycardia (47-51), junctional rhythm with 1st degree AV block Objective Objective: Physical Exam: General: alert and oriented x3. no acute distress Skin: no rashes, cyanosis, pallor Eyes: PERRLA, EOMI. no periorbital edema. Heart: regular rate and rhythm. no murmurs, gallops, rubs Lungs: decreased breath sounds in lower lobes Abdomen: soft, nontender. normoactive bowel sounds. no pain upon palpation. Extremities: LE = generalized edema, no erythema, no pain upon palpation, decreased ROM with LLE. Neuro: no neurologic deficits. CN 3-12 intact. Vital Signs Date Time Temp Pulse Resp B/P B/P Pulse O2 O2 Flow FiO2 Mean Ox Delivery Rate 02/06 0819 97.5 48 18 140/62 92 Room Air 02/05 2342 97.5 52 18 114/72 94 Room Air 02/05 1832 97.0 51 18 148/60 97 Room Air 02/05 1732 97.5 51 18 148/63 95 Room Air Room Air 02/05 1452 46 18 139/65 94 Room Air 02/05 1309 95 Room Air 02/05 1248 97.3 46 18 133/60 94 Room Air Intake & Output 02/06 1600 02/06 0800 02/06 0000 Intake Total 120 360 Output Total 400 50 Balance -280 310 Intake, Oral 120 360 Output, Urine 400 50 Patient 273 lb 272 lb Weight Weight Chair scale Standing Scale Measurement Method Renal US (02/06/17): IMPRESSION: 1. Bilateral renal cortical atrophy. 2. Bilateral nephrolithiasis without evidence of urinary tract obstruction. 3. Moderate volume of ascitic fluid is present in the abdomen and pelvis. Results Results: Laboratory Tests 02/06/17 0723: Anion Gap 15, Estimated GFR 7 L, BUN/Creatinine Ratio 19.7, Troponin I < 0.01, CBC w Diff NO MAN DIFF REQ, RBC 4.00 L, MCV 81.9, MCH 26.8 L, RDW 17.0 H, MPV 9.0, Gran % 74.6, Lymphocytes % 10.7 L, Monocytes % 9.2, Eosinophils % 4.8, Basophils % 0.7, Absolute Granulocytes 6.6 H, Absolute Lymphocytes 1.0 L, Absolute Monocytes 0.8 H, Absolute Eosinophils 0.4, Absolute Basophils 0.1, PUBS MCHC 32.7 L 02/05/17 2005: Troponin I < 0.01 02/05/17 1320: Anion Gap 17 H, Estimated GFR 7 L, BUN/Creatinine Ratio 20.0, Glucose 137 H, Calcium 9.1, Magnesium 2.4 H, Total Bilirubin 0.9, AST 12 L, ALT 19, Alkaline Phosphatase 170 H, Troponin I < 0.01, [id number] Pept 15343 H, Total Protein 6.6, Albumin 3.7, Globulin 2.9, Albumin/Globulin Ratio 1.3, D-Dimer High Sensitivty 305 H, CBC w Diff NO MAN DIFF REQ, RBC 4.21, MCV 81.4, MCH 26.5 L, RDW 17.7 H, MPV 8.5, Gran % 74.2, Lymphocytes % 11.6 L, Monocytes % 8.8, Eosinophils % 4.6, Basophils % 0.8, Absolute Granulocytes 7.2 H, Absolute Lymphocytes 1.1 L, Absolute Monocytes 0.9 H, Absolute Eosinophils 0.5, Absolute Basophils 0.1, PUBS MCHC 32.5 L Assessment/Plan Assessment: Assessment and Plan: 72 yo female with PMHx significant for CKD stage 4, DM type 2, A.fib/flutter not on anticoagulation, and HTN who presented for worsening bilateral lower extremity edema of 1 week. Patient is afebrile (97.5), normotensive (140/62), and bradycardic (48). Patient is 92% on room air. Upon admission, labs showed H/ H of 11.1/34.3, BUN of 124, creatinine of 6.2, GFR of 7, [place] [address], and anion gap of 17. D-Dimer level of 305 and 3/3 troponin levels are <0.01. Todays, labs reveal H/H of 10.7/32.7, BUN of 123, creatinine of 6.1, GFR of 7, anion gap of 15. U/A today reveals leukocyte esterase, bacteria, hemoglobin, hyaline casts, protein of 100, RBC 10-15, WBC >75. Renal US doesn't show any evidence of urinary tract obstruction but shows bilateral nephrolithiasis, renal cortical atrophy, and moderate volume of ascitic fluid. 1. Bilateral LE edema * Generalized bilateral edema with decreased ROM but with no erythema or pain. * Differential includes: drug-induced (amlodipine), right-sided heart failure, CHF (elevated BNP level), anasarca secondary to CKD, venous insufficiency, diabetic nephropathy. * Venous doppler was negative for DVT. CXR showed prominent cardiac silhouette, elevated right hemidiaphragm. * Echocardiogram to be performed today to rule out cardiac causes. [facility]I in 2014 showed EF of 50%, mild-moderate TR, LVH, mild MR, aortic stenosis, mild AR. 2. CKD * Today's level is 6.1. Baseline creatinine is 2.5. Level in December was 3.45 with previous levels this year of 2.37, 2.88, 3.08. BUN levels have been ranging from 39-62 this past year. Today's level is 123. * Elevation in creatinine differential includes: amlodipine, diuretic use ( furosemide was doubled from 20 to 40 mg daily by flask handler outpatient due to bilateral lower extremity edema with no change. diuretic has been held inpatient ), myocardial dysfunction, infection (patient had UTI this year treated with Keflex, uncontrolled diabetes, urinary tract obstruction (renal US ruled it out) . * Records from flask handler, Dr. Reyes in [place], and title processor, Dr. Lutz, in [place] were received. * Repeat electrolytes (specifically potassium to monitor for hyperkalemia), BMP 3x daily, check glucose. * Monitor I&Os and daily weights. * Urine cultures have been sent. * Can consider ABG to evaluate for metabolic acidosis. 3. Sinus bradycardia * Could be contributing to progressive CKD due to hypoperfusion. * In January 2015, patient was found to have atrial fibrillation/flutter and was anticoagulated and later cardioverted because she continued to be symptomatic. Patient has stopped anticoagulation due to bleeding. * Check TSH, T3/T4 to rule out hypothyroidism. 4. Anemia * Anemia secondary to CKD. Recent outpatient labs show H/H of 11.0/34.0. 5. Chronic conditions - gout, essential HTN, DM type 2, hyperlipidemia, secondary hyperparathyoidism * Gout: Fuboxostat has been held as it is nephrotoxic. * HTN: patient recently was started on Amlodipine last month. Beta blockers and CCBs are being held as patient is in sinus bradycardia and can contribute to kidney disease. CORINNE inhibitors and ARBs should also be avoided as they are nephrotoxic. Outpatient, she was switched from metoprolol to carvedilol 12.5 mg. Patient will be started on Hydralazine 25 mg BID. Monitor BP. If patient is hypertensive, hydralazine can be increased to 25 mg TID. * DM type 2: patient stopped Januvia due to side effect. Controlling glucose levels with diet and exercise. * Hyperlipidemia: Can consider checking lipids as patient was diagnosed with hyperlipidemia and was on a statin, Crestor, as per previous records. * Secondary hyperparathyroidism: patient is on calcitriol. Yesterday's phosphorus level of 7.8, with calcium level of 9.1 upon admission.
--- NOTE | 2017-02-06 10:25 | Cons- Nephrology ---
General Information and HPI Consulting Request Date of Consult: 02/06/17 Requested By: DONNA BARBOUR,ED Robles Reason for Consult: Evaluation and management of chronic kidney disease. Source of Information: patient Exam Limitations: no limitations History of Present Illness: This 72-year-old woman has a history of diabetes and hypertension. She reports that she has been followed by Dr. Nato Reyes for roughly 8 years. She had, at one point, a closed renal biopsy which according to Dr Reyes showed diabetes and hypertension. She has a history of progressive kidney disease. She was seen by Dr. Byrne on December 31 of this year. Her creatinine at that time was 3.4. She presents to [place], her chief complaint being that she has increasing lower extremity swelling. According to Dr. Reyes, she always has some degree of lower extremity edema. She reports that her blood pressure has been difficult to control. She reports being placed on amlodipine fairly recently. She has a history of hospitalization for what sounds like hyperkalemia year ago at [facility]. She also had a fistula placed in her right upper arm in anticipation of a dialysis need. This was performed in June of this past year. She also underwent a fistulogram and angioplasty and the axis has been deemed ready to use should the need arise. The patient denies any use of nonsteroidal anti-inflammatory drugs. She denies any new medications. She denies just use year or nausea and vomiting. She denies shortness of breath or chest pain. Her main complaint is not feeling well with increasing lower extremity edema. Allergies/Medications Allergies: Coded Allergies: sitagliptin (From THANG) (Severe, THROAT CLOSURE 02/05/17) Home Med List: Amlodipine Besylate 10 MG TABLET 1 TAB PO DAILY HEART (Reported) Aspirin (Aspirin*) 81 MG TAB.CHEW 1 TAB PO DAILY HEART HEALTH (Reported) Calcitriol 0.5 MCG CAPSULE 1 CAP PO DAILY SUPPLEMENT (Reported) Carvedilol 12.5 MG TABLET 1 TAB PO BID HEART (Reported) Febuxostat (Uloric) 40 MG TABLET 1 TAB PO DAILY UNKNOWN (Reported) Torsemide 20 MG TABLET 1 TAB PO DAILY WATER RETENTION (Reported) Current Medications: Current Medications Sig/Cole Start time Last Medication Dose Route Stop Time Status Admin Acetaminophen 325 MG Q6 PRN 02/05 1700 AC PO Aspirin 81 MG DAILY 06/26 1000 AC 02/06 PO 0858 Heparin Sodium 5,000 UNIT Q8 02/05 1648 AC (Porcine) SC Ibuprofen 600 MG Q6 02/05 1800 DC PO Review of Systems Review of Systems Constitutional: Reports: weakness. Denies: chills, diaphoresis, fever, malaise. EENTM: Denies: blurred vision, double vision, visual changes, eye pain, nasal pain, throat pain, throat swelling. Cardiovascular: Reports: edema. Denies: chest pain, orthopena, palpitations. Respiratory: Denies: cough, hemoptysis, orthopnea, short of breath, sputum production. GI: Denies: abdominal pain, bloating, constipation, diarrhea, distention, bowel incontinence. Genitourinary: Denies: discharge, dysuria, frequency, hematuria. Musculoskeletal: Denies: joint pain, joint swelling, muscle pain, muscle stiffness. Skin: Denies: rash. Neurological/Psychological: Reports: no symptoms. Denies: tremors, tonic-clonic seizures. Hematologic/Endocrine: Denies: bruising, bleeding, polyuria. Past History Travel History Traveled to [place] past 21 day No Medical History Blood Transfusion Hx: Yes Neurological: NONE Cardiovascular: AFIB (refuses/ not started on antico), aflutter, hypertension Hepatic: NONE Renal: CKD, biopsy-proven diabetic/hypertensive nephropathy Musculoskeletal: gout Endocrine: diabetes, she reports that her diabetes has been referred for roughly 10 years. She denies any retinopathy. Blood Disorders: anemia Surgical History Surgical History: non-contributory Psychosocial History Where Do You Live? Home Smoking Status: Never Smoked Exam & Diagnostic Data Vital Signs and I&O Vital Signs Date Time Temp Pulse Resp B/P B/P Pulse O2 O2 Flow FiO2 Mean Ox Delivery Rate 02/06 0819 97.5 48 18 140/62 92 Room Air 02/05 2342 97.5 52 18 114/72 94 Room Air 02/05 1832 97.0 51 18 148/60 97 Room Air 02/05 1732 97.5 51 18 148/63 95 Room Air Room Air 02/05 1452 46 18 139/65 94 Room Air 02/05 1309 95 Room Air 02/05 1248 97.3 46 18 133/60 94 Room Air Intake & Output 02/06 1600 02/06 0400 02/05 1600 02/05 0400 02/04 1600 02/04 0400 Intake Total 120 360 Output Total 400 50 Balance -280 310 Intake, Oral 120 360 Output, Urine 400 50 Patient 273 lb 272 lb 275 lb Weight Weight Chair scale Standing Scale Estimated Measurement Method Physical Exam General Appearance: well developed/nourished, no apparent distress, alert, awake , anxious, obese Head: atraumatic, normal appearance Eyes: Bilateral: PERRL, EOMI, pale conjunctivae. Ears, Nose, Throat: normal pharynx, normal ENT inspection, hearing grossly normal Neck: normal inspection, supple, full range of motion, trachea mid line Respiratory: normal breath sounds, chest non-tender, lungs clear Cardiovascular: regular rate/rhythm, edema Gastrointestinal: normal bowel sounds, soft, non-tender Back: normal inspection, normal range of motion Extremities: normal inspection, pedal edema, swelling Neurologic/Psych: no motor/sensory deficits, awake, alert, oriented x 3, no gross neurologic deficits Cranial Nerves: normal hearing, normal speech, PERRL Skin: intact, warm/dry Lymphatic: no cervical supraclavicular or axillary Lymphadenopathy Results Pertinent Lab Results: Laboratory Tests 02/06 Chemistry Sodium (137 - 145 mmol/L) 141 Potassium (3.5 - 5.1 mmol/L) 4.1 Chloride (98 - 107 mmol/L) 108 H Carbon Dioxide (22 - 30 mmol/L) 17 L Anion Gap (5 - 16) 15 BUN (7 - 17 mg/dL) 123 *H Creatinine (0.5 - 1.0 mg/dL) 6.1 *H Estimated GFR (>60 ml/min) 7 L BUN/Creatinine Ratio (7 - 25 %) 19.7 Troponin I (< 0.11 ng/ml) < 0.01 < 0.01 Hematology CBC w Diff NO MAN DIFF REQ WBC (4.8 - 10.8 /CUMM) 8.9 RBC (4.20 - 5.40 /CUMM) 4.00 L Hgb (12.0 - 16.0 G/DL) 10.7 L Hct (37 - 47 %) 32.7 L MCV (81.0 - 99.0 FL) 81.9 MCH (27.0 - 31.0 PG) 26.8 L RDW (11.5 - 14.5 %) 17.0 H Plt Count (130 - 400 /CUMM) 143 MPV (7.4 - 10.4 FL) 9.0 Gran % (42.2 - 75.2 %) 74.6 Lymphocytes % (20.5 - 51.1 %) 10.7 L Monocytes % (1.7 - 9.3 %) 9.2 Eosinophils % (0 - 5 %) 4.8 Basophils % (0.0 - 2.0 %) 0.7 Absolute Granulocytes (1.4 - 6.5 /CUMM) 6.6 H Absolute Lymphocytes (1.2 - 3.4 /CUMM) 1.0 L Absolute Monocytes (0.10 - 0.60 /CUMM) 0.8 H Absolute Eosinophils (0.0 - 0.7 /CUMM) 0.4 Absolute Basophils (0.0 - 0.2 /CUMM) 0.1 PUBS MCHC (33.0 - 37.0 G/DL) 32.7 L 02/05 1320 Chemistry Sodium (137 - 145 mmol/L) 142 Potassium (3.5 - 5.1 mmol/L) 4.1 Chloride (98 - 107 mmol/L) 108 H Carbon Dioxide (22 - 30 mmol/L) 17 L Anion Gap (5 - 16) 17 H BUN (7 - 17 mg/dL) 124 *H Creatinine (0.5 - 1.0 mg/dL) 6.2 *H Estimated GFR (>60 ml/min) 7 L BUN/Creatinine Ratio (7 - 25 %) 20.0 Glucose (65 - 99 mg/dL) 137 H Calcium (8.4 - 10.2 mg/dL) 9.1 Magnesium (1.6 - 2.3 mg/dL) 2.4 H Total Bilirubin (0.2 - 1.3 mg/dL) 0.9 AST (14 - 36 U/L) 12 L ALT (9 - 52 U/L) 19 Alkaline Phosphatase (<127 U/L) 170 H Troponin I (< 0.11 ng/ml) < 0.01 [id number] Pept (<125 pg/mL) 11509 H Total Protein (6.3 - 8.2 g/dL) 6.6 Albumin (3.5 - 5.0 g/dL) 3.7 Globulin (1.9 - 4.2 gm/dL) 2.9 Albumin/Globulin Ratio (1.1 - 2.2 %) 1.3 Coagulation D-Dimer High Sensitivty (0 - 243 ng/ml) 305 H Hematology CBC w Diff NO MAN DIFF REQ WBC (4.8 - 10.8 /CUMM) 9.7 RBC (4.20 - 5.40 /CUMM) 4.21 Hgb (12.0 - 16.0 G/DL) 11.1 L Hct (37 - 47 %) 34.3 L MCV (81.0 - 99.0 FL) 81.4 MCH (27.0 - 31.0 PG) 26.5 L RDW (11.5 - 14.5 %) 17.7 H Plt Count (130 - 400 /CUMM) 158 MPV (7.4 - 10.4 FL) 8.5 Gran % (42.2 - 75.2 %) 74.2 Lymphocytes % (20.5 - 51.1 %) 11.6 L Monocytes % (1.7 - 9.3 %) 8.8 Eosinophils % (0 - 5 %) 4.6 Basophils % (0.0 - 2.0 %) 0.8 Absolute Granulocytes (1.4 - 6.5 /CUMM) 7.2 H Absolute Lymphocytes (1.2 - 3.4 /CUMM) 1.1 L Absolute Monocytes (0.10 - 0.60 /CUMM) 0.9 H Absolute Eosinophils (0.0 - 0.7 /CUMM) 0.5 Absolute Basophils (0.0 - 0.2 /CUMM) 0.1 PUBS MCHC (33.0 - 37.0 G/DL) 32.5 L Assessment/Plan Assessment/Recommendations Assessment: #1. Acute on chronic kidney disease. The cause of this is not yet obvious. This may represent progression of her underlying chronic kidney disease. He likewise, may represent some component of volume depletion. In speaking with Dr. Reyes, he reports that she always has some degree of lower extremity edema. It may be helpful to obtain the outpatient record to see if there is a difference in her measured weight. #2. Increased lower extremity edema. She is complaining of difficulty walking from the lower extremity edema. Please see the comments above. #3. History of a flutter/A. fib. Apparently, she reports a cardioversion at [facility] last year. Apparently, the decision was made not to proceed with anticoagulation. #4. Diabetes mellitus #5. Hypertension. Both #4 and #5. Contribute to her progressive kidney failure #6. Secondary hyperparathyroidism.? She is on calcitriol. It would be helpful to know what her phosphorus is. If she is hyperphosphatemic, would hold the calcitriol. #7. Of note she was observed to be in a junctional rhythm. Her potassium is fine. It may be, with this junctional rhythm, that this has caused some degree of relative renal hypoperfusion leading to a rise in creatinine. Recommendations: #1 I do not see an urgent need for dialytic intervention today #2. Have asked Dr. Reyes to fax medical records to facilitate care #3. Would however check hepatitis B surface antigen, hepatitis B surface antibody and hepatitis C antibody in anticipation of potential dialysis need #4 strict intakes and outputs #5. Daily weights #6. BMP daily 3 #7. Would hold the torsemide today. #8. In the event that it is the amlodipine and is causing or adding to the lower extremity edema, it may be reasonable to decrease dose to 5 mg and add another high blood pressure medication. In spite of her history of diabetes and hypertension, with how advanced her renal disease is, would not initiate an CORINNE inhibitor or an angiotensin receptor matt. #9. Agree with ultrasound
--- NOTE | 2017-02-06 10:47 | Cons- Cardiology ---
General Information and HPI Consulting Request Date of Consult: 02/06/17 Requested By: ED THOMPSON MD Reason for Consult: Bradycardia. Source of Information: patient, old records Exam Limitations: poor historian History of Present Illness: Mrs. Leslie Coleman a 72-year-old female with history of gout, "tachycardia" for which she is on Carvedilol, dyslipidemia, gout, hypertension, diabetes mellitus, and chronic kidney disease (baseline creatinine approximately 2.9 mg/dl), chronic anemia who recently had complaints of increasing bilateral lower extremity edema and who, on the recommendation of her dietary aide cook ( Nato Reyes M.D.), increased her daily Torsemide from 20 mg daily to 40 mg daily on 01/25/2017 without any significant improvement in the edema and with increasing lethargy and weakness who we are asked to evaluate and help manage in regard to persistent "junctional" bradycardia. There is no recent history of NSAID use, IV contrast, aminoglycosides, etc. She had a right upper extremity AV fistula placed in June 2016. She additionally, underwent a fistulogram and angioplasty more recently, according to the records, and the fistula is ready to use, if necessary. According to the patient, the "tachycardia" described above most likely was a result of atrial fibrillation with a rapid ventricular response, as she describes having what sounds like a CARI and cardioversion. She was also encouraged to be on anticoagulation, but this she declined. Allergies/Medications Allergies: Coded Allergies: sitagliptin (From AUGUVADARTIS) (Severe, THROAT CLOSURE 02/05/17) Home Med List: Amlodipine Besylate 10 MG TABLET 1 TAB PO DAILY HEART (Reported) Aspirin (Aspirin*) 81 MG TAB.CHEW 1 TAB PO DAILY HEART HEALTH (Reported) Calcitriol 0.5 MCG CAPSULE 1 CAP PO DAILY SUPPLEMENT (Reported) Carvedilol 12.5 MG TABLET 1 TAB PO BID HEART (Reported) Febuxostat (Uloric) 40 MG TABLET 1 TAB PO DAILY UNKNOWN (Reported) Hydralazine HCl 25 MG TABLET 1 TAB PO BID HTN (Reported) Torsemide 20 MG TABLET 1 TAB PO DAILY WATER RETENTION (Reported) Review of Systems Review of Systems: A 14 point system review was obtained and was noncontributory, other than as above. Past History Travel History Traveled to [place] past 21 day No Medical History Blood Transfusion Hx: Yes Cardiovascular: hypertension Renal: CKD Musculoskeletal: gout Endocrine: diabetes Blood Disorders: anemia Surgical History Surgical History: non-contributory Psychosocial History Where Do You Live? Home Smoking Status: Never Smoked Exam & Diagnostic Data Vital Signs and I&O Vital Signs Date Time Temp Pulse Resp B/P B/P Pulse O2 O2 Flow FiO2 Mean Ox Delivery Rate 02/06 0819 97.5 48 18 140/62 92 Room Air 02/05 2342 97.5 52 18 114/72 94 Room Air 02/05 1832 97.0 51 18 148/60 97 Room Air 02/05 1732 97.5 51 18 148/63 95 Room Air Room Air 02/05 1452 46 18 139/65 94 Room Air 02/05 1309 95 Room Air Intake & Output 02/06 1600 02/06 0800 02/06 0000 02/05 1600 02/05 0800 02/05 0000 Intake Total 120 360 Output Total 400 50 Balance -280 310 Intake, Oral 120 360 Output, Urine 400 50 Patient 273 lb 272 lb 275 lb Weight Weight Chair scale Standing Scale Estimated Measurement Method Physical Exam: Well-developed, overweight elderly female in no acute distress. Vital signs: See above. HEENT: Normocephalic, atraumatic, EOMI, slightly dry mucous membranes. Neck: No JVD, right carotid bruit. Lungs: Decreased breath sounds otherwise clear. Heart: S1, S2 with soft (grade 1-2/6) systolic murmur. Abdomen: Soft, nontender, positive bowel sounds. Extremities: 2+ bilateral lower extremity edema. Assessment/Plan Assessment/Plan [id number] w/ hx of gout, "tachycardia" on BB, HTN, DM, & CKD (baseline creat ~ 2.9 mg/dl) w/ hx recent c/o increasing bilateral LE edema w/o improvement following an increase in her Torsemide from 20 mg daily to 40 mg daily, but w/ increasing lethargy/weakness who we are asked to evaluate and help manage in regard to persistent "junctional" bradycardia. On close review of her ECG, P waves are apparent in lead II and there is evidence of a prolonged WA interval. Her rhythm is therefore not "junctional" bradycardia, but rather sinus bradycardia with first-degree AV block. Carvedilol is a beta matt with alpha blocking activity. Fortunately, carvedilol's metabolism is extensively hepatic (98%) and has an adult half-life elimination of 7-10 hours, however, genetic polymorphism can lead to 2-3 fold increase plasma concentrations. Hydralazine is a reasonable choice for her hypertension. Hydralazine is a direct vasodilator of arterioles with decreased systemic resistance and has little effect on veins. Hydralazine metabolism is through hepatic acetylation with a half-life elimination of 3-7 hours. Recommendations: * Continue on telemetry for sinus bradycardia with first-degree AV block. * Avoid management of hypertension with beta blockers, non-dihydropyridine calcium channel antagonist, etc. * Also avoid management of hypertension with dihydropyridine calcium channel antagonists given their tendency to cause lower extremity edema. * Naturally, avoid the use of elin inhibitors and angiotensin receptor blockers given her RAMO on CKD. * Check TSH, free T4 as hypothyroidism can also cause bradycardia. * Check glycosylated hemoglobin A1c. * Schedule echocardiogram to assess left ventricular systolic/diastolic function , degree of left ventricular hypertrophy, right ventricular function, estimated PA systolic pressure, etc. * Probable paroxysmal atrial flutter fibrillation without anticoagulation as per patient wishes. Again discussed the risk benefit of anticoagulation and at this time the patient wants to hold off on anticoagulation. She was made aware of the potential risks of this decision i.e., cardioembolic stroke. * Consider carotid ultrasound given finding of right carotid bruit. * Nephrology consultation. * DVT prophylaxis. Further recommendations will follow, Thank you. Addendum: We will review the medical records sent to by her dietary aide cook. Consult Acknowledgment - Thank you for your consult request.
[2017-02-06] MEDS ORDERED: HYDRALAZINE HCL25 M1 PO (11:53)
--- NOTE | 2017-02-06 12:23 | ULTRASOUND REPORT ---
EXAMINATION: US RETROPERITONEAL COMPLETE (RENAL) CLINICAL INFORMATION: Elevated creatinine. Evaluate for renal obstruction.. COMPARISON: None TECHNIQUE: Real-time imaging of the kidneys and bladder. FINDINGS: RIGHT KIDNEY: The patient has a large body habitus and the right kidney is suboptimally visualized. The kidney measures approximately 10.3 cm long, 4.6 cm AP and 5 cm transverse . There is diffuse, [id number]-ldabhxbm cortical atrophy. The cortical echotexture is normal. There are suboptimally visualized echogenic, shadowing foci in upper and lower poles of the kidney, suggestive of nephrolithiasis without hydronephrosis. LEFT KIDNEY: The left kidney measures 11.5 cm long, 5.3 cm AP and 4.8 cm transverse. There is mild-to moderate renal cortical atrophy. 0.6 cm calculus is seen in the interpolar region. A calculus is present in the lower pole, as well. No hydronephrosis. No focal parenchymal lesions are identified. BLADDER: The urinary bladder is underdistended. Ureteral jets were not visualized during the time of imaging. Moderate amount of ascitic fluid is present within the abdomen and pelvis. IMPRESSION: 1. Bilateral renal cortical atrophy. 2. Bilateral nephrolithiasis without evidence of urinary tract obstruction. 3. Moderate volume of ascitic fluid is present in the abdomen and pelvis..
--- NOTE | 2017-02-06 13:14 | Admission Certification ---
Admission Certification Certification Statement - As attending physician, I certify that at the time of - admission, based on clinical presentation, severity of - symptoms, need for further diagnostic testing and - therapeutic interventions, and risk of adverse outcomes - without in-hospital treatment, in my clinical assessment, - this patient requires an acute hospital stay for a minimum - of two nights or longer. I have also considered psychsocial - factors such as support system, advanced age, financial - issues, cognitive issues, and failed out-patient treatments, - past re-admission history, safety of patient, and lack of - compliance as applicable. Specific rationale supporting this admission is: Acute kidney injury on CKD with severe lower extremity edema.
[2017-02-06 15:40] VITALS: BP 122/64
[2017-02-06 16:19] VITALS: BP 122/62
[2017-02-06 23:33] VITALS: BP 124/68
--- NOTE | 2017-02-07 07:12 | PN- Housestaff ---
Subjective Follow-up For: RAMO on CKD Lower extremity swelling History of AFib/Flutter Tele-Events Since Last Visit: Off Telemetry Subjective: Patient seen and examined. She is seen sitting upright in her chair at bedside resting comfortably. She appears to be in no acute distress. She reports that her lower extremites feel "a little less swollen". She admits that she is able to ambulate, and is steady on her feet but is incredibly fearful of falling. She otherwise feels fine and has no new subjective complaints. Additionally she denies any headache, fever, chills, chest pain, shortness of breath, nausea, vomiting, diarrhea. Review of Systems Constitutional: Reports: see HPI. Objective Last 24 Hrs of Vital Signs/I&O Vital Signs Date Time Temp Pulse Resp B/P B/P Pulse O2 O2 Flow FiO2 Mean Ox Delivery Rate 02/07 0717 98.0 50 20 104/56 93 Room Air 02/07 0000 94 02/06 2333 97.7 52 20 124/68 94 Room Air 02/06 2215 51 128/70 02/06 1619 97.7 64 18 122/62 92 Room Air 02/06 1540 51 122/64 02/06 1339 118/62 Intake & Output 02/07 1600 02/07 0800 02/07 0000 Intake Total 400 Output Total 375 Balance 25 Intake, Oral 400 Output, Urine 375 Physical Exam General Appearance: Alert, Oriented X3, Cooperative, No Acute Distress Other Physical Findings: General- well developed, morbidly obese elderly woman in no acute distress HEENT- NCAT, PERRL, EOMI, anicteric sclera Chest- S1, S2 w/o m/g/r Lung- CTA bilaterally Abdomen- Soft, obese, nontender, nondistended Neuro- Awake and alert, CN II-XII grossly intact Ext- 4+ bilateral lower extremity pitting edema Current Medications: Current Medications Sig/Cole Start time Last Medication Dose Route Stop Time Status Admin Acetaminophen 325 MG Q6 PRN 02/05 1700 AC PO Aspirin 81 MG DAILY 02/06 1000 AC 02/06 PO 0858 Calcitriol 0.5 MCG DAILY 02/06 1618 AC 02/06 PO 1812 Febuxostat 40 MG DAILY 02/06 1130 AC 02/06 PO 1339 Heparin Sodium 5,000 UNIT Q8 02/05 1648 AC (Porcine) SC Hydralazine HCl 25 MG BID 02/06 1153 AC 02/06 PO 2215 Non-Formulary 0 SEE ADMIN CRITERIA 02/06 1130 CAN Medication ANY Last 24 Hrs of Lab/[place] Results Last 24 Hrs of Labs/Mics: Laboratory Tests 02/07/17 0650: Anion Gap 15, Estimated GFR 7 L, BUN/Creatinine Ratio 20.2, Phosphorus 8.0 H, CBC w Diff Pending, WBC Pending, RBC Pending, Hgb Pending, Hct Pending, MCV Pending, MCH Pending, RDW Pending, Plt Count Pending, MPV Pending, PUBS MCHC Pending 02/06/17 2235: Anion Gap 15, Estimated GFR 7 L, BUN/Creatinine Ratio 20.3 02/06/17 1425: Anion Gap 15, Estimated GFR 7 L, BUN/Creatinine Ratio 19.7, Hepatitis A IgM Ab NONREACTIVE, Hep Bs Antigen NONREACTIVE, Hep B Core IgM Ab Conf NONREACTIVE, Hepatitis C Antibody NONREACTIVE 02/06/17 1038: Urine Color YEL, Urine Clarity CLDY H, Urine pH 6.0, Ur Specific [place] 1.020, Urine Protein 100 H, Urine Ketones NEG, Urine Nitrite NEG, Urine Bilirubin NEG, Urine Urobilinogen 0.2, Ur Leukocyte Esterase MOD H, Ur Microscopic SEDIMENT EXAMINED, Urine RBC 10-15 H, Urine WBC > 75 H, Ur Epithelial Cells RARE, Urine Bacteria MANY H, Hyaline Casts RARE H, Urine Hemoglobin LARGE H, Urine Glucose NEG Microbiology 02/06 1512 URINE ROUT: Urine Culture - RECD Assessment/Plan Assessment: 72 year old woman with multiple medical problems significant for chronic kidney disease, right upper extremity AV fistula, NIDDM, HTN, and gout brought in by ambulance due to bilateral lower extremity edema. 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 She reports baseline creatinine of around 2.9. Vitals were within normal limits upon ED evaluation. Labs were significant for BUN/Cr 124/6.2 and BNP 14,900, d-dimer 305. Renal Ultrasound showed bilateral renal cortical atrophy without any obstructuon and a moderate amount of asictic fluid. Hepatits Panel negative -Telemetry -Strict I&O's, daily weights -Hold Torsemide -Hydralazine 25mg PO BID -Cardiologuy/Nephrology consults -BEP x3 daily per nephrology #History of Gout-Febuxostat 40mg PO Daily #Hyperlipidemia-Atorvastatin 40mg PO Daily started (instead of Crestor 10mg) Pain Plan-Acetaminophen Diet-Renal Dialysis Diet DVT PPx-subcutaneous heparin Code Status-FULL CODE Problem List: 1. Chronic kidney disease (CKD) Pain Ratin Pain Location: None Pain Goal: Remain pain free Pain Plan: See assessment Tomorrow's Labs & Rationales: BEP, CBC, PO
[2017-02-07 07:17] VITALS: BP 104/56
--- NOTE | 2017-02-07 07:32 | PN- Student ---
TORO KEATING 02/07/17 0728: Subjective Subjective: Patient was seen and examined this morning. She reports no overnight events. Patient states heaviness in her legs but says they look less swollen. She is able to ambulate but is nervous of falling since previous fall this past year and feeling "wobbly" due to edema in legs and feet. Patient was taking a statin but has stopped taking it and states that she "isn't good with lots of medications" and doesn't have "much luck with them." Denies nausea, vomiting, diarrhea, headache, lightheadedness, dizziness, chest pain, difficulty breathing , orthopnea, paroxymal nocturnal dyspnea, fatigue, abdominal pain, numbness or weakness in legs. Current Medications Sig/Cole Start time Last Medication Dose Route Stop Time Status Admin Acetaminophen 325 MG Q6 PRN 02/05 1700 AC PO Aspirin 81 MG DAILY 02/06 1000 AC 02/06 PO 0858 Calcitriol 0.5 MCG DAILY 02/06 1618 AC 02/06 PO 1812 Febuxostat 40 MG DAILY 02/06 1130 AC 02/06 PO 1339 Heparin Sodium 5,000 UNIT Q8 02/05 1648 AC (Porcine) SC Hydralazine HCl 25 MG BID 02/06 1153 AC 02/06 PO 2215 Non-Formulary 0 SEE ADMIN CRITERIA 02/06 1130 CAN Medication ANY Objective Objective: Physical Exam: General: calm, cooperative. no acute distress. obese female Skin: no rashes, cyanosis, pallor Lungs: decreased breath sounds bilaterally Heart: regular rhythm. bradycardic. 1/6 systolic murmur, gallops, rubs Abdomen: normoactive bowel sounds. no pain upon palpation Extremities: LE: 4+ pitting edema, erythema limited proximal to ankles. no pain upon palpation Neuro: alert and oriented x3. no neurologic deficits. no arm drift. Vital Signs Date Time Temp Pulse Resp B/P B/P Pulse O2 O2 Flow FiO2 Mean Ox Delivery Rate 02/07 0717 98.0 50 20 104/56 93 Room Air 02/07 0000 94 02/06 2333 97.7 52 20 124/68 94 Room Air 02/06 2215 51 128/70 02/06 1619 97.7 64 18 122/62 92 Room Air 02/06 1540 51 122/64 02/06 1339 118/62 02/06 0819 97.5 48 18 140/62 92 Room Air Intake & Output 02/07 0800 02/07 0000 02/06 1600 Intake Total 400 Output Total 375 400 Balance 25 -400 Intake, Oral 400 Output, Urine 375 400 Bilateral Carotid Doppler (02/07/17): 1. RIGHT: Nonhemodynamically significant stenosis of the proximal right internal carotid artery corresponding to a 0-49% stenosis by velocity criteria. 2. LEFT: Nonhemodynamically significant stenosis of the proximal left internal carotid artery corresponding to a 0-49% stenosis by velocity criteria. 3. Severe occlusive plaque visualized within the proximal right external carotid artery. 4. Elevated velocity within the left external carotid artery consistent with moderate to severe stenosis. Results Results: Laboratory Tests 02/07/17 0650: Anion Gap 15, Estimated GFR 7 L, BUN/Creatinine Ratio 20.2, Phosphorus 8.0 H, CBC w Diff NO MAN DIFF REQ, RBC 3.93 L, MCV 81.9, MCH 26.9 L, RDW 17.5 H, MPV 8.8, Gran % 71.6, Lymphocytes % 11.4 L, Monocytes % 12.0 H, Eosinophils % 4.7, Basophils % 0.3, Absolute Granulocytes 6.4, Absolute Lymphocytes 1.0 L, Absolute Monocytes 1.1 H, Absolute Eosinophils 0.4, Absolute Basophils 0, PUBS MCHC 32.8 L 02/06/17 2235: Anion Gap 15, Estimated GFR 7 L, BUN/Creatinine Ratio 20.3 02/06/17 1425: Anion Gap 15, Estimated GFR 7 L, BUN/Creatinine Ratio 19.7, Hepatitis A IgM Ab NONREACTIVE, Hep Bs Antigen NONREACTIVE, Hep B Core IgM Ab Conf NONREACTIVE, Hepatitis C Antibody NONREACTIVE 02/06/17 1038: Urine Color YEL, Urine Clarity CLDY H, Urine pH 6.0, Ur Specific [place] 1.020, Urine Protein 100 H, Urine Ketones NEG, Urine Nitrite NEG, Urine Bilirubin NEG, Urine Urobilinogen 0.2, Ur Leukocyte Esterase MOD H, Ur Microscopic SEDIMENT EXAMINED, Urine RBC 10-15 H, Urine WBC > 75 H, Ur Epithelial Cells RARE, Urine Bacteria MANY H, Hyaline Casts RARE H, Urine Hemoglobin LARGE H, Urine Glucose NEG 02/06/17 0723: Anion Gap 15, Estimated GFR 7 L, BUN/Creatinine Ratio 19.7, Hemoglobin A1c Pending, Phosphorus 7.8 H, Troponin I < 0.01, TSH &T3 &Free T4 Intrp 2.680, CBC w Diff NO MAN DIFF REQ, RBC 4.00 L, MCV 81.9, MCH 26.8 L, RDW 17.0 H, MPV 9.0 , Gran % 74.6, Lymphocytes % 10.7 L, Monocytes % 9.2, Eosinophils % 4.8, Basophils % 0.7, Absolute Granulocytes 6.6 H, Absolute Lymphocytes 1.0 L, Absolute Monocytes 0.8 H, Absolute Eosinophils 0.4, Absolute Basophils 0.1, PUBS MCHC 32.7 L 02/05/172004: Troponin I < 0.01 02/05/17 1320: Anion Gap 17 H, Estimated GFR 7 L, BUN/Creatinine Ratio 20.0, Glucose 137 H, Calcium 9.1, Magnesium 2.4 H, Total Bilirubin 0.9, AST 12 L, ALT 19, Alkaline Phosphatase 170 H, Troponin I < 0.01, Wps-S-Ikwcbybnnbl Pept 54979 H, Total Protein 6.6, Albumin 3.7, Globulin 2.9, Albumin/Globulin Ratio 1.3, D-Dimer High Sensitivty 305 H, CBC w Diff NO MAN DIFF REQ, RBC 4.21, MCV 81.4, MCH 26.5 L, RDW 17.7 H, MPV 8.5, Gran % 74.2, Lymphocytes % 11.6 L, Monocytes % 8.8, Eosinophils % 4.6, Basophils % 0.8, Absolute Granulocytes 7.2 H, Absolute Lymphocytes 1.1 L, Absolute Monocytes 0.9 H, Absolute Eosinophils 0.5, Absolute Basophils 0.1, PUBS MCHC 32.5 L 02/05/17 1316: Urine Color Cancelled, Urine Clarity Cancelled, Urine pH Cancelled, Ur Specific [place] Cancelled, Urine Protein Cancelled, Urine Ketones Cancelled, Urine Nitrite Cancelled, Urine Bilirubin Cancelled, Urine Urobilinogen Cancelled, Ur Leukocyte Esterase Cancelled, Ur Microscopic Cancelled, Urine Hemoglobin Cancelled, Urine Glucose Cancelled Microbiology 02/06 1512 URINE ROUT: Urine Culture - RECD Assessment/Plan Assessment: Assessment and Plan: 72 yo female with PMHx significant for CKD stage 4, DM type 2, A.fib/flutter not on anticoagulation, and HTN who presented on Monday for worsening bilateral lower extremity edema of 1 week. Patient is afebrile (98.0), normotensive (104/ 56), and bradycardic (50). Patient is 94% on room air. Upon admission, labs showed H/H of 11.1/34.3, BUN of 124, creatinine of 6.2, GFR of 7, [place] [address], and anion gap of 17. D-Dimer level of 305 and negative serial troponin levels. U /A yesterday showed leukocyte esterase, bacteria, hemoglobin, hyaline casts, protein of 100, RBC 10-15, WBC >75. Renal US doesn't show any evidence of urinary tract obstruction. Carotid doppler results show severe occlusive plaque with proximal right external carotid artery and elevated velocity with left external carotid artery. Today, labs reveal H/H of 10.6/37.2, BUN of 127, creatinine of 6.3. Urine culture grew gram negative rods. 1. Bilateral LE edema * Differential includes: drug-induced (amlodipine), right-sided heart failure, CHF (elevated BNP level, sxs not suggestive), anasarca secondary to CKD, venous insufficiency, diabetic nephropathy. * Venous doppler was negative for DVT. CXR showed prominent cardiac silhouette, elevated right hemidiaphragm. * Awaiting echocardiogram results. CARI in 2014 showed EF of 50%, mild-moderate TR, LVH, mild MR, aortic stenosis, mild AR. * Patient switched from amlodipine to hydralazine 25 mg PO BID. 2. CKD * Baseline creatinine is ~2.5. Level in December was 3.45 with previous levels this year of 2.37, 2.88, 3.08. BUN levels have been ranging from 39-62 this past year. * Elevation in creatinine differential includes: acute kidney injury, amlodipine , diuretic use (torsemide was doubled from 20 to 40 mg daily by provider relations advocate outpatient due to bilateral lower extremity edema with no change. diuretic has been held inpatient), myocardial dysfunction, infection (patient had UTI this year treated with Keflex), uncontrolled diabetes, urinary tract obstruction ( renal US ruled it out). * Records from provider relations advocate, Dr. Reyes in [place], and leader tier, Dr. Lutz, in [place] were received. * Repeat electrolytes (specifically potassium to monitor for hyperkalemia), BMP 3x daily, check HbA1c. * Monitor I&Os and daily weights. * Urine cultures grew gram negative rods on day 2. Awaiting identification and susceptibilities. Differential includes: recurrent UTI, cystitis. * Can consider ABG to evaluate for metabolic acidosis. * Nephrology consult. 3. Sinus bradycardia * Could be contributing to progressive CKD due to hypoperfusion. * Differential includes: hypothyroidism (ruled out), hypothermia, hypoglycemia ( glucose levels upon admission were 137), obstructive sleep apnea, sick sinus syndrome (AV saloni blocking agents have been held). * In January 2015, patient was found to have atrial fibrillation/flutter and was anticoagulated and later cardioverted because she continued to be symptomatic. Patient has stopped anticoagulation due to patient reported side effect of bleeding. * TSH, T3/T4 are WNL. * Monitor EKG changes. 4. Chronic conditions - gout, essential HTN, DM type 2, hyperlipidemia, secondary hyperparathyoidism, anemia * Gout: Fuboxostat was held due to its nephrotoxic properties. It has been restarted. * HTN: patient recently was started on Amlodipine last month. Beta blockers and CCBs are being held as patient is in sinus bradycardia and can contribute to kidney disease. CORINNE inhibitors and ARBs should also be avoided as they are nephrotoxic. Outpatient, she was switched from metoprolol to carvedilol 12.5 mg. Patient is now on Hydralazine 25 mg BID. Monitor BP. If patient is hypertensive, hydralazine can be increased to 25 mg TID. * DM type 2: patient stopped Januvia due to side effect. Controlling glucose levels with diet and exercise. HbA1c pending. * Hyperlipidemia: Can consider checking lipids as patient was diagnosed with hyperlipidemia and was on a statin, Crestor, as per previous records. Start back on Crestor. * Secondary hyperparathyroidism: patient is on calcitriol. Yesterday's phosphorus level of 7.8, with calcium level of 9.1 upon admission. * Anemia: secondary to CKD. Recent outpatient labs in December show H/H of 11.0/ 34.0.
--- NOTE | 2017-02-07 07:51 | ULTRASOUND REPORT ---
EXAMINATION: DUPLEX BILATERAL CAROTID ULTRASOUND CLINICAL INFORMATION: Right carotid bruit. COMPARISON: None. TECHNIQUE: Real-time ultrasound and Doppler techniques (integrating B-mode 2D vascular images, Doppler spectral analysis and color flow Doppler imaging) were utilized to interrogate the extracranial carotid and vertebral arteries bilaterally. The degree of stenosis determined by criteria similar to NASCET. Examination mildly limited secondary to patient motion. FINDINGS: Right side: 1. Moderate amount of heterogeneous plaque is seen in the CCA/ICA region. Severe occlusive plaque visualized within the right external carotid artery. 2. The common carotid artery velocity is 67 cm/s. 3. The internal carotid artery velocities are 69 cm/s systolic and 10 cm/s diastolic. 4. The external carotid artery appears occluded secondary to severe plaque burden. Left side: 1. Moderate to severe amount of heterogeneous plaque is seen in the ECA/ICA region. 2. The common carotid artery velocity is 96 cm/s. 3. The internal carotid artery velocities are 120 cm/s systolic and 14 cm/s diastolic. 4. The external carotid artery velocity is 265 cm/s. ADDITIONAL FINDINGS: 1. The vertebral arteries show antegrade flow. IMPRESSION: 1. RIGHT: Nonhemodynamically significant stenosis of the proximal right internal carotid artery corresponding to a 0-49% stenosis by velocity criteria. 2. LEFT: Nonhemodynamically significant stenosis of the proximal left internal carotid artery corresponding to a 0-49% stenosis by velocity criteria. 3. Severe occlusive plaque visualized within the proximal right external carotid artery. 4. Elevated velocity within the left external carotid artery consistent with moderate to severe stenosis.
[2017-02-07 08:04] LABS: ABSOLUTE BASOPHIL COUNT 0 /CUMM (0.0-0.2); ABSOLUTE EOSINOPHIL COUNT 0.4 /CUMM (0.0-0.7); ABSOLUTE GRANULOCYTE CT 6.4 /CUMM (1.4-6.5); ABSOLUTE MONOCYTE COUNT 1.1 /CUMM (0.10-0.60); BASOPHIL % 0.3 % (0.0-2.0); EOSINOPHIL % 4.7 % (0-5); GRANULOCYTE % 71.6 % (42.2-75.2); HEMATOCRIT 32.2 % (37-47); MEAN CORPUSCULAR HGB 26.9 PG (27.0-31.0); MEAN CORPUSCULAR HGB CONC 32.8 G/DL (33.0-37.0); MEAN CORPUSCULAR VOLUME 81.9 FL (81.0-99.0); MEAN PLATELET VOLUME 8.8 FL (7.4-10.4); PLATELET COUNT 136 /CUMM (130-400); RBC DISTRIBUTION WIDTH 17.5 % (11.5-14.5); RED BLOOD CELL CT 3.93 /CUMM (4.20-5.40); WHITE BLOOD CELL COUNT 8.9 /CUMM (4.8-10.8)
[2017-02-07 09:23] VITALS: BP 138/62
--- NOTE | 2017-02-07 10:25 | PN- Nephrology ---
Assessment/Plan Assessment: 1. Acute on chronic kidney disease. The cause of this is not yet obvious. 2. Increased lower extremity edema. She is complaining of difficulty walking from the lower extremity edema. Still suspect that this may be due to amlodipine on some level since it seems to correspond with the initiation of that therapy. Currently the amlodipine remains on hold. 3. History of a flutter/A. fib. Followed by Dr Lutz 4. Diabetes mellitus 5. Hypertension. Both #4 and #5. Contribute to her progressive kidney failure 6. Secondary hyperparathyroidism. On calcitriol Suggestion: 1. No urgent dialytic need. 2. Would continue to observe. It may be that if no improvement occurs soon that dialysis will need to be started preemptively. The fear here would be that she goes home not on dialysis with a creatinine of around 6 with a BUN in the 120s that she'll return feeling poorly needing urgent initiation. The other issue needing to be considered when that time comes is that she lives here but had been followed by a doctor in [place]. I do not see this person driving down to [place] for dialysis. Keep in mind, this issue will need to be addressed once the dialysis need is seen and dialysis is initiated. Subjective Subjective: Patient says that her swelling began many years ago she came progressively worse over the past 2-3 weeks. She does not recall having an appointment with Dr. Reyes this month. It had been reported that she had canceled the appointment because she did not feel well Objective Vital Signs and I&Os Vital Signs Date Time Temp Pulse Resp B/P B/P Pulse O2 O2 Flow FiO2 Mean Ox Delivery Rate 02/07 0924 50 138/62 02/07 0923 138/62 02/07 0717 98.0 50 20 104/56 93 Room Air 02/07 0000 94 02/06 2333 97.7 52 20 124/68 94 Room Air 02/06 2215 51 128/70 02/06 1619 97.7 64 18 122/62 92 Room Air 02/06 1540 51 122/64 02/06 1339 118/62 Intake & Output 02/07 1600 02/07 0400 02/06 1600 02/06 0400 02/05 1600 02/05 0400 Intake Total 250 400 120 360 Output Total 300 375 800 50 Balance -50 25 -680 310 Intake, Oral 250 400 120 360 Output, Urine 300 375 800 50 Patient 273 lb 272 lb 275 lb Weight Weight Chair scale Standing Scale Estimated Measurement Method Physical Exam: General Appearance: well developed/nourished, no apparent distress, alert, awake , anxious, obese Head: atraumatic, normal appearance Eyes: Bilateral: PERRL, EOMI, pale conjunctivae. Ears, Nose, Throat: normal pharynx, normal ENT inspection, hearing grossly normal Neck: normal inspection, supple, full range of motion, trachea mid line Respiratory: normal breath sounds, chest non-tender, lungs clear Cardiovascular: regular rate/rhythm, edema Gastrointestinal: normal bowel sounds, soft, non-tender Back: normal inspection, normal range of motion Extremities: normal inspection, pedal edema, swelling Neurologic/Psych: no motor/sensory deficits, awake, alert, oriented x 3, no gross neurologic deficits Cranial Nerves: normal hearing, normal speech, PERRL Skin: intact, warm/dry Lymphatic: no cervical supraclavicular or axillary Lymphadenopathy Current Medications: Current Medications Sig/Cole Start time Last Medication Dose Route Stop Time Status Admin Acetaminophen 325 MG Q6 PRN 02/05 1700 AC PO Aspirin 81 MG DAILY 02/06 1000 AC 02/07 PO 0924 Calcitriol 0.5 MCG DAILY 02/06 1618 AC 02/07 PO 0924 Febuxostat 40 MG DAILY 02/06 1130 AC 02/07 PO 0924 Heparin Sodium 5,000 UNIT Q8 02/05 1648 AC (Porcine) SC Hydralazine HCl 25 MG BID 02/06 1153 AC 02/07 PO 0924 Non-Formulary 0 SEE ADMIN CRITERIA 02/06 1130 CAN Medication ANY Results Pertinent Lab Results: Laboratory Tests 02/07 02/06 02/06 0650 2235 1425 Chemistry Sodium (137 - 145 mmol/L) 141 140 142 Potassium (3.5 - 5.1 mmol/L) 4.0 4.0 3.9 Chloride (98 - 107 mmol/L) 109 H 107 108 H Carbon Dioxide (22 - 30 mmol/L) 17 L 18 L 18 L Anion Gap (5 - 16) 15 15 15 BUN (7 - 17 mg/dL) 127 *H 126 *H 122 *H Creatinine (0.5 - 1.0 mg/dL) 6.3 *H 6.2 *H 6.2 *H Estimated GFR (>60 ml/min) 7 L 7 L 7 L BUN/Creatinine Ratio (7 - 25 %) 20.2 20.3 19.7 Phosphorus (2.5 - 4.5 mg/dL) 8.0 H Hematology CBC w Diff NO MAN DIFF REQ WBC (4.8 - 10.8 /CUMM) 8.9 RBC (4.20 - 5.40 /CUMM) 3.93 L Hgb (12.0 - 16.0 G/DL) 10.6 L Hct (37 - 47 %) 32.2 L MCV (81.0 - 99.0 FL) 81.9 MCH (27.0 - 31.0 PG) 26.9 L RDW (11.5 - 14.5 %) 17.5 H Plt Count (130 - 400 /CUMM) 136 MPV (7.4 - 10.4 FL) 8.8 Gran % (42.2 - 75.2 %) 71.6 Lymphocytes % (20.5 - 51.1 %) 11.4 L Monocytes % (1.7 - 9.3 %) 12.0 H Eosinophils % (0 - 5 %) 4.7 Basophils % (0.0 - 2.0 %) 0.3 Absolute Granulocytes (1.4 - 6.5 /CUMM) 6.4 Absolute Lymphocytes (1.2 - 3.4 /CUMM) 1.0 L Absolute Monocytes (0.10 - 0.60 /CUMM) 1.1 H Absolute Eosinophils (0.0 - 0.7 /CUMM) 0.4 Absolute Basophils (0.0 - 0.2 /CUMM) 0 PUBS MCHC (33.0 - 37.0 G/DL) 32.8 L Serology Hepatitis A IgM Ab (NONREACTIVE) NONREACTIVE Hep Bs Antigen (NONREACTIVE) NONREACTIVE Hep B Core IgM Ab Conf (NONREACTIVE) NONREACTIVE Hepatitis C Antibody (NONREACTIVE) NONREACTIVE 02/06 1038 Urines Urine Color (YEL,AMB,STR) YEL Urine Clarity (CLEAR) CLDY H Urine pH (5.0 - 8.0) 6.0 Ur Specific [place] (1.001 - 1.035) 1.020 Urine Protein (NEG,<30 MG/DL) 100 H Urine Ketones (NEG) NEG Urine Nitrite (NEG) NEG Urine Bilirubin (NEG) NEG Urine Urobilinogen (0.1 - 1.0 EU/dl) 0.2 Ur Leukocyte Esterase (NEG) MOD H Ur Microscopic SEDIMENT EXAMINED Urine RBC (0 - 5 /HPF) 10-15 H Urine WBC (0 - 2 /HPF) > 75 H Ur Epithelial Cells (NONE,FEW) RARE Urine Bacteria (NEG/NONE) MANY H Hyaline Casts (0/LPF) RARE H Urine Hemoglobin (NEG) LARGE H Urine Glucose (N MG/DL) NEG 02/06 Chemistry Sodium (137 - 145 mmol/L) 141 Potassium (3.5 - 5.1 mmol/L) 4.1 Chloride (98 - 107 mmol/L) 108 H Carbon Dioxide (22 - 30 mmol/L) 17 L Anion Gap (5 - 16) 15 BUN (7 - 17 mg/dL) 123 *H Creatinine (0.5 - 1.0 mg/dL) 6.1 *H Estimated GFR (>60 ml/min) 7 L BUN/Creatinine Ratio (7 - 25 %) 19.7 Hemoglobin A1c (4.2 - 5.8 %) Pending Phosphorus (2.5 - 4.5 mg/dL) 7.8 H Troponin I (< 0.11 ng/ml) < 0.01 < 0.01 TSH &T3 &Free T4 Intrp (0.270 - 4.20 uIU/mL) 2.680 Hematology CBC w Diff NO MAN DIFF REQ WBC (4.8 - 10.8 /CUMM) 8.9 RBC (4.20 - 5.40 /CUMM) 4.00 L Hgb (12.0 - 16.0 G/DL) 10.7 L Hct (37 - 47 %) 32.7 L MCV (81.0 - 99.0 FL) 81.9 MCH (27.0 - 31.0 PG) 26.8 L RDW (11.5 - 14.5 %) 17.0 H Plt Count (130 - 400 /CUMM) 143 MPV (7.4 - 10.4 FL) 9.0 Gran % (42.2 - 75.2 %) 74.6 Lymphocytes % (20.5 - 51.1 %) 10.7 L Monocytes % (1.7 - 9.3 %) 9.2 Eosinophils % (0 - 5 %) 4.8 Basophils % (0.0 - 2.0 %) 0.7 Absolute Granulocytes (1.4 - 6.5 /CUMM) 6.6 H Absolute Lymphocytes (1.2 - 3.4 /CUMM) 1.0 L Absolute Monocytes (0.10 - 0.60 /CUMM) 0.8 H Absolute Eosinophils (0.0 - 0.7 /CUMM) 0.4 Absolute Basophils (0.0 - 0.2 /CUMM) 0.1 PUBS MCHC (33.0 - 37.0 G/DL) 32.7 L 02/05 02/05 1320 1316 Chemistry Sodium (137 - 145 mmol/L) 142 Potassium (3.5 - 5.1 mmol/L) 4.1 Chloride (98 - 107 mmol/L) 108 H Carbon Dioxide (22 - 30 mmol/L) 17 L Anion Gap (5 - 16) 17 H BUN (7 - 17 mg/dL) 124 *H Creatinine (0.5 - 1.0 mg/dL) 6.2 *H Estimated GFR (>60 ml/min) 7 L BUN/Creatinine Ratio (7 - 25 %) 20.0 Glucose (65 - 99 mg/dL) 137 H Calcium (8.4 - 10.2 mg/dL) 9.1 Magnesium (1.6 - 2.3 mg/dL) 2.4 H Total Bilirubin (0.2 - 1.3 mg/dL) 0.9 AST (14 - 36 U/L) 12 L ALT (9 - 52 U/L) 19 Alkaline Phosphatase (<127 U/L) 170 H Troponin I (< 0.11 ng/ml) < 0.01 [id number] Pept (<125 pg/mL) 03778 H Total Protein (6.3 - 8.2 g/dL) 6.6 Albumin (3.5 - 5.0 g/dL) 3.7 Globulin (1.9 - 4.2 gm/dL) 2.9 Albumin/Globulin Ratio (1.1 - 2.2 %) 1.3 Coagulation D-Dimer High Sensitivty (0 - 243 ng/ml) 305 H Hematology CBC w Diff NO MAN DIFF REQ WBC (4.8 - 10.8 /CUMM) 9.7 RBC (4.20 - 5.40 /CUMM) 4.21 Hgb (12.0 - 16.0 G/DL) 11.1 L Hct (37 - 47 %) 34.3 L MCV (81.0 - 99.0 FL) 81.4 MCH (27.0 - 31.0 PG) 26.5 L RDW (11.5 - 14.5 %) 17.7 H Plt Count (130 - 400 /CUMM) 158 MPV (7.4 - 10.4 FL) 8.5 Gran % (42.2 - 75.2 %) 74.2 Lymphocytes % (20.5 - 51.1 %) 11.6 L Monocytes % (1.7 - 9.3 %) 8.8 Eosinophils % (0 - 5 %) 4.6 Basophils % (0.0 - 2.0 %) 0.8 Absolute Granulocytes (1.4 - 6.5 /CUMM) 7.2 H Absolute Lymphocytes (1.2 - 3.4 /CUMM) 1.1 L Absolute Monocytes (0.10 - 0.60 /CUMM) 0.9 H Absolute Eosinophils (0.0 - 0.7 /CUMM) 0.5 Absolute Basophils (0.0 - 0.2 /CUMM) 0.1 PUBS MCHC (33.0 - 37.0 G/DL) 32.5 L Urines Urine Color Cancelled Urine Clarity Cancelled Urine pH Cancelled Ur Specific [place] Cancelled Urine Protein Cancelled Urine Ketones Cancelled Urine Nitrite Cancelled Urine Bilirubin Cancelled Urine Urobilinogen Cancelled Ur Leukocyte Esterase Cancelled Ur Microscopic Cancelled Urine Hemoglobin Cancelled Urine Glucose Cancelled
[2017-02-07 14:35] VITALS: BP 116/60
--- NOTE | 2017-02-07 14:56 | PN- Att Addend ---
Attending Addendum Attending Brief Note Patient seen and examined. Plan of care discussed with the medical team and the patient. Available lab work and radiology test reports were reviewed. Patient is feeling well but continues to have looks to be edema. She denies any chest pain or difficulty breathing. No recent fevers have been noted. Vital Signs Date Time Temp Pulse Resp B/P B/P Pulse O2 O2 Flow FiO2 Mean Ox Delivery Rate 02/07 0924 50 138/62 02/07 0923 138/62 02/07 0717 98.0 50 20 104/56 93 Room Air 02/07 0000 94 02/06 2333 97.7 52 20 124/68 94 Room Air 02/06 2215 51 128/70 02/06 1619 97.7 64 18 122/62 92 Room Air 02/06 1540 51 122/64 Intake & Output 02/07 1600 02/07 0800 02/07 0000 Intake Total 250 400 Output Total 300 375 Balance -50 25 Intake, Oral 250 400 Output, Urine 300 375 Exam: General: Patient awake alert oriented without any distress CVS: S1 plus S2 without any murmur or gallops Chest: Few scattered crepitation without any wheeze. There is no respiratory distress. Abdomen: Soft nontender, bowel sound present, no guarding or rebound [employer]ISH [employer]ER: Awake alert oriented without any focal neuro deficit and follows command appropriately Extremities: 3+ pitting bilateral edema no clubbing or cyanosis noted Laboratory Tests 02/07 02/06 02/06 0650 2235 1425 Chemistry Sodium (137 - 145 mmol/L) 141 140 142 Potassium (3.5 - 5.1 mmol/L) 4.0 4.0 3.9 Chloride (98 - 107 mmol/L) 109 H 107 108 H Carbon Dioxide (22 - 30 mmol/L) 17 L 18 L 18 L Anion Gap (5 - 16) 15 15 15 BUN (7 - 17 mg/dL) 127 *H 126 *H 122 *H Creatinine (0.5 - 1.0 mg/dL) 6.3 *H 6.2 *H 6.2 *H Estimated GFR (>60 ml/min) 7 L 7 L 7 L BUN/Creatinine Ratio (7 - 25 %) 20.2 20.3 19.7 Phosphorus (2.5 - 4.5 mg/dL) 8.0 H Hematology CBC w Diff NO MAN DIFF REQ WBC (4.8 - 10.8 /CUMM) 8.9 RBC (4.20 - 5.40 /CUMM) 3.93 L Hgb (12.0 - 16.0 G/DL) 10.6 L Hct (37 - 47 %) 32.2 L MCV (81.0 - 99.0 FL) 81.9 MCH (27.0 - 31.0 PG) 26.9 L RDW (11.5 - 14.5 %) 17.5 H Plt Count (130 - 400 /CUMM) 136 MPV (7.4 - 10.4 FL) 8.8 Gran % (42.2 - 75.2 %) 71.6 Lymphocytes % (20.5 - 51.1 %) 11.4 L Monocytes % (1.7 - 9.3 %) 12.0 H Eosinophils % (0 - 5 %) 4.7 Basophils % (0.0 - 2.0 %) 0.3 Absolute Granulocytes (1.4 - 6.5 /CUMM) 6.4 Absolute Lymphocytes (1.2 - 3.4 /CUMM) 1.0 L Absolute Monocytes (0.10 - 0.60 /CUMM) 1.1 H Absolute Eosinophils (0.0 - 0.7 /CUMM) 0.4 Absolute Basophils (0.0 - 0.2 /CUMM) 0 PUBS MCHC (33.0 - 37.0 G/DL) 32.8 L Serology Hepatitis A IgM Ab (NONREACTIVE) NONREACTIVE Hep Bs Antigen (NONREACTIVE) NONREACTIVE Hep B Core IgM Ab Conf (NONREACTIVE) NONREACTIVE Hepatitis C Antibody (NONREACTIVE) NONREACTIVE Microbiology Date/Time Procedure - Status Source Growth 02/06 1512 Urine Culture - RES URINE ROUT GRAM NEGATIVE RODS Carotid ultrasound 1. RIGHT: Nonhemodynamically significant stenosis of the proximal right internal carotid artery corresponding to a 0-49% stenosis by velocity criteria. 2. LEFT: Nonhemodynamically significant stenosis of the proximal left internal carotid artery corresponding to a 0-49% stenosis by velocity criteria. 3. Severe occlusive plaque visualized within the proximal right external carotid artery. 4. Elevated velocity within the left external carotid artery consistent with moderate to severe stenosis. Renal ultrasound 1. Bilateral renal cortical atrophy. 2. Bilateral nephrolithiasis without evidence of urinary tract obstruction. 3. Moderate volume of ascitic fluid is present in the abdomen and pelvis. Assessment * acute renal failure * chronic renal failure * History of gout * Lower extremity edema likely secondary to Norvasc; no evidence of CHF * Hyperphosphatemia * History of A. fib flutter * Bradycardia * Diabetes type 2 * Obesity * History of hypertension * Carotid stenosis and atherosclerosis Plan * As per nephrology note no urgent indication for hemodialysis at this point * Continue current medication * Recheck creatinine and phosphate tomorrow * check echo * Restart Crestor for carotid atherosclerosis; patient was counseled for lifestyle management
[2017-02-07] MEDS ORDERED: CRESTOR10 M1 PO (15:11)
[2017-02-07 22:59] VITALS: BP 112/70
--- NOTE | 2017-02-08 06:57 | PN- Housestaff ---
Subjective Follow-up For: RAMO on CKD Lower extremity swelling History of AFib/Flutter Tele-Events Since Last Visit: Sinus Bradycardia 1st degree AVB [place] 0.32-0.34 No events Subjective: Patient seen and examined. She is seen lying flat in bed resting comfortably. She appears to be in no acute distress. She reports that her legs feel somewhat improved today, however admits that they don't appear much different than in previous days. She continues to deny any breathing difficulties or chest pain. Otherwise she denies any headache, fever, chills, nausea, vomiting. Review of Systems Constitutional: Reports: see HPI. Objective Last 24 Hrs of Vital Signs/I&O Vital Signs Date Time Temp Pulse Resp B/P B/P Pulse O2 O2 Flow FiO2 Mean Ox Delivery Rate 02/08 0658 98.1 57 18 112/60 91 Room Air 02/07 2259 98.0 50 16 112/70 94 Room Air 02/07 2047 54 120/60 02/07 1435 97.1 52 20 116/60 95 Room Air 02/07 0924 50 138/62 02/07 0923 138/62 Intake & Output 02/08 0800 02/08 0000 02/07 1600 Intake Total 120 530 480 Output Total 300 300 Balance -180 530 180 Intake, IV 210 Intake, Oral 120 320 480 Number 1 Bowel Movements Output, Urine 300 300 Physical Exam General Appearance: Alert, Oriented X3, Cooperative, No Acute Distress Other Physical Findings: General- well developed, morbidly obese elderly woman in no acute distress HEENT- NCAT, PERRL, EOMI, anicteric sclera Chest- S1, S2 w/o m/g/r Lung- CTA bilaterally Abdomen- Soft, obese, nontender, nondistended Neuro- Awake and alert, CN II-XII grossly intact Ext- 4+ bilateral lower extremity pitting edema Current Medications: Current Medications Sig/Cole Start time Last Medication Dose Route Stop Time Status Admin Acetaminophen 325 MG Q6 PRN 02/05 1700 AC PO Aspirin 81 MG DAILY 02/06 1000 AC 02/07 PO 0924 Atorvastatin Calcium 40 MG 1700 02/07 1700 AC 02/07 PO 1742 Calcitriol 0.5 MCG DAILY 02/06 1618 AC 02/07 PO 0924 Febuxostat 40 MG DAILY 02/06 1130 AC 02/07 PO 0924 Heparin Sodium 5,000 UNIT Q8 02/05 1648 AC (Porcine) SC Hydralazine HCl 25 MG BID 02/06 1153 AC 02/07 PO 2046 Patient Medication 1 ED .STK-MED ONE 02/07 1413 NC Teaching ED 02/07 1414 Last 24 Hrs of Lab/[place] Results Last 24 Hrs of Labs/Mics: Laboratory Tests 02/08/17 0654: Sodium Pending, Potassium Pending, Chloride Pending, Carbon Dioxide Pending, Anion Gap Pending, BUN Pending, Creatinine Pending, BUN/Creatinine Ratio Pending , Phosphorus Pending, CBC w Diff Pending, WBC Pending, RBC Pending, Hgb Pending, Hct Pending, MCV Pending, MCH Pending, RDW Pending, Plt Count Pending, MPV Pending, PUBS MCHC Pending Assessment/Plan Assessment: 72 year old woman with multiple medical problems significant for chronic kidney disease, right upper extremity AV fistula, NIDDM, HTN, and gout brought in by ambulance due to bilateral lower extremity edema. #Acute Kidney Injury #Chronic Kidney Disease #Hypertension Patient of identification printing machine setter Dr. Reyes. She reports baseline creatinine of around 2.9. Vitals were within normal limits upon ED evaluation. Labs were significant for BUN/Cr 124/6.2 and BNP 14,900, d-dimer 305. Renal Ultrasound showed bilateral renal cortical atrophy without any obstructuon and a moderate amount of asictic fluid. Hepatitis Panel negative. Patient has had persistently elevated creatinine after several daily serum chemistries. She is currently declining inpatient hemodialysis and would like to follow up with her identification printing machine setter in [place]. Revela was started with meals and Calcitrol held for elevated phosphorus. -Telemetry -Strict I&O's, daily weights -Hold Torsemide -Calcitriol held for elevated phosphorus -Renvela 1600mg PO WM -Hydralazine 25mg PO BID -Cardiologuy/Nephrology consults #History of Gout-Febuxostat 40mg PO Daily #Hyperlipidemia-Atorvastatin 40mg PO Daily Pain Plan-Acetaminophen Diet-Renal Dialysis Diet DVT PPx-subcutaneous heparin Code Status-FULL CODE Problem List: 1. Chronic kidney disease (CKD) Pain Ratin Pain Location: None Pain Goal: Remain pain free Pain Plan: See assessment Tomorrow's Labs & Rationales: None
[2017-02-08 06:58] VITALS: BP 112/60
--- NOTE | 2017-02-08 07:34 | PN- Student ---
TORO KEATING 02/08/17 0729: Subjective Subjective: Patient was seen and examined this morning. She was able to sleep better last night but states that she was woken up for bloodwork and also to go to the bathroom at least 3 times. Patient states that she thinks her legs look better and was able to walk to bathroom with no difficulty. When discussing potential dialysis, patient feels that she wouldn't be a "good patient" because she "doesn 't like being told what to do" and doesn't like having to fit into other people' s schedules. She also mentioned that she has developed a good relationship with her senior national account manager in [place] and that she would go to his office for dialysis but if it "becomes too much" she would like to come to [place] instead. Denies chest pain, difficulty breathing, pain upon urination, blood in urine, abdominal pain or discomfort, nausea, fever, chills, vomiting, diarrhea, numbness or weakness in legs. Current Medications Sig/Cole Start time Last Medication Dose Route Stop Time Status Admin Acetaminophen 325 MG Q6 PRN 02/05 1700 AC PO Aspirin 81 MG DAILY 02/06 1000 AC 02/07 PO 0924 Atorvastatin Calcium 40 MG 1700 02/07 1700 AC 02/07 PO 1742 Calcitriol 0.5 MCG DAILY 02/06 1618 AC 02/07 PO 0924 Febuxostat 40 MG DAILY 02/06 1130 AC 02/07 PO 0924 Heparin Sodium 5,000 UNIT Q8 02/05 1648 AC (Porcine) SC Hydralazine HCl 25 MG BID 02/06 1153 AC 02/07 PO 2047 Patient Medication 1 ED .[facility] 02/07 1413 [facility] ED 02/07 1414 Objective Objective: Physical Exam: General: calm, cooperative, in no acute distress, obese female Skin: no rashes, cyanosis, pallor Neck: supple, carotid bruits bilaterally Lungs: decreased breath sounds bilaterally Heart: regular rhythm, bradycardic, 1/6 systolic murmur, no gallops or rubs Abdomen: soft, nontender, normoactive bowel sounds Extremities: 3+ pitting edema, erythema limited proximal to ankles, LE warm to touch, no pain upon palpation of LE Neuro: alert and oriented x3, no neurologic deficits Overnight events: sinus bradycardia with 1st degree heart block and PVCs, HR 50- 54, VT interval 0.32-0.34 Vital Signs Date Time Temp Pulse Resp B/P B/P Pulse O2 O2 Flow FiO2 Mean Ox Delivery Rate 02/08 0658 98.1 57 18 112/60 91 Room Air 02/07 2259 98.0 50 16 112/70 94 Room Air 02/07 2047 54 120/60 02/07 1435 97.1 52 20 116/60 95 Room Air 02/07 0924 50 138/62 02/07 0923 138/62 Intake & Output 02/08 0800 02/08 0000 02/07 1600 Intake Total 120 530 480 Output Total 300 300 Balance -180 530 180 Intake, IV 210 Intake, Oral 120 320 480 Number 1 Bowel Movements Output, Urine 300 300 Results Results: Laboratory Tests 02/08/17 0654: Anion Gap 16, Estimated GFR 7 L, BUN/Creatinine Ratio 20.6, Phosphorus 7.7 H, CBC w Diff NO MAN DIFF REQ, RBC 3.97 L, MCV 81.9, MCH 26.9 L, RDW 17.1 H, MPV 9.0, Gran % 75.8 H, Lymphocytes % 8.4 L, Monocytes % 10.7 H, Eosinophils % 4.4, Basophils % 0.7, Absolute Granulocytes 7.2 H, Absolute Lymphocytes 0.8 L, Absolute Monocytes 1.0 H, Absolute Eosinophils 0.4, Absolute Basophils 0.1, PUBS MCHC 32.8 L 02/07/17 0650: Anion Gap 15, Estimated GFR 7 L, BUN/Creatinine Ratio 20.2, Phosphorus 8.0 H, CBC w Diff NO MAN DIFF REQ, RBC 3.93 L, MCV 81.9, MCH 26.9 L, RDW 17.5 H, MPV 8.8, Gran % 71.6, Lymphocytes % 11.4 L, Monocytes % 12.0 H, Eosinophils % 4.7, Basophils % 0.3, Absolute Granulocytes 6.4, Absolute Lymphocytes 1.0 L, Absolute Monocytes 1.1 H, Absolute Eosinophils 0.4, Absolute Basophils 0, PUBS MCHC 32.8 L 02/06/17 2235: Anion Gap 15, Estimated GFR 7 L, BUN/Creatinine Ratio 20.3 02/06/17 1425: Anion Gap 15, Estimated GFR 7 L, BUN/Creatinine Ratio 19.7, Hepatitis A IgM Ab NONREACTIVE, Hep Bs Antigen NONREACTIVE, Hep B Core IgM Ab Conf NONREACTIVE, Hepatitis C Antibody NONREACTIVE 02/06/17 1038: Urine Color YEL, Urine Clarity CLDY H, Urine pH 6.0, Ur Specific [place] 1.020, Urine Protein 100 H, Urine Ketones NEG, Urine Nitrite NEG, Urine Bilirubin NEG, Urine Urobilinogen 0.2, Ur Leukocyte Esterase MOD H, Ur Microscopic SEDIMENT EXAMINED, Urine RBC 10-15 H, Urine WBC > 75 H, Ur Epithelial Cells RARE, Urine Bacteria MANY H, Hyaline Casts RARE H, Urine Hemoglobin LARGE H, Urine Glucose NEG 02/06/17 0723: Anion Gap 15, Estimated GFR 7 L, BUN/Creatinine Ratio 19.7, Hemoglobin A1c 6.5 H, Phosphorus 7.8 H, Troponin I < 0.01, TSH &T3 &Free T4 Intrp 2.680, CBC w Diff NO MAN DIFF REQ, RBC 4.00 L, MCV 81.9, MCH 26.8 L, RDW 17.0 H, MPV 9.0, Gran % 74.6, Lymphocytes % 10.7 L, Monocytes % 9.2, Eosinophils % 4.8, Basophils % 0.7, Absolute Granulocytes 6.6 H, Absolute Lymphocytes 1.0 L, Absolute Monocytes 0.8 H, Absolute Eosinophils 0.4, Absolute Basophils 0.1, PUBS MCHC 32.7 L 02/05/17 2005: Troponin I < 0.01 02/05/17 1320: Anion Gap 17 H, Estimated GFR 7 L, BUN/Creatinine Ratio 20.0, Glucose 137 H, Calcium 9.1, Magnesium 2.4 H, Total Bilirubin 0.9, AST 12 L, ALT 19, Alkaline Phosphatase 170 H, Troponin I < 0.01, Paf-P-Zdjpwifkrik Pept 22246 H, Total Protein 6.6, Albumin 3.7, Globulin 2.9, Albumin/Globulin Ratio 1.3, D-Dimer High Sensitivty 305 H, CBC w Diff NO MAN DIFF REQ, RBC 4.21, MCV 81.4, MCH 26.5 L, RDW 17.7 H, MPV 8.5, Gran % 74.2, Lymphocytes % 11.6 L, Monocytes % 8.8, Eosinophils % 4.6, Basophils % 0.8, Absolute Granulocytes 7.2 H, Absolute Lymphocytes 1.1 L, Absolute Monocytes 0.9 H, Absolute Eosinophils 0.5, Absolute Basophils 0.1, PUBS MCHC 32.5 L 02/05/17 1316: Urine Color Cancelled, Urine Clarity Cancelled, Urine pH Cancelled, Ur Specific [place] Cancelled, Urine Protein Cancelled, Urine Ketones Cancelled, Urine Nitrite Cancelled, Urine Bilirubin Cancelled, Urine Urobilinogen Cancelled, Ur Leukocyte Esterase Cancelled, Ur Microscopic Cancelled, Urine Hemoglobin Cancelled, Urine Glucose Cancelled Microbiology 02/06 1512 URINE ROUT: Urine Culture - RES GRAM NEGATIVE RODS Assessment/Plan Assessment: Assessment and Plan: 72 yo female with PMHx significant for CKD stage 4, DM type 2, A.fib/flutter not on anticoagulation, and HTN who presented on Monday for worsening bilateral lower extremity edema of 1 week. Patient is afebrile (98.1), normotensive (112/ 60), and bradycardic (57). Patient is 91% on room air. Upon admission, labs showed H/H of 11.1/34.3, BUN of 124, creatinine of 6.2, GFR of 7, [place] [address], and anion gap of 17. D-Dimer level of 305 and negative serial troponin levels. U /A showed leukocyte esterase, bacteria, hemoglobin, hyaline casts, protein of 100, RBC 10-15, WBC >75. Renal US doesn't show any evidence of urinary tract obstruction. Carotid doppler results show severe occlusive plaque with proximal right external carotid artery and elevated velocity with left external carotid artery. Urine culture grew gram negative rods. Today, labs reveal H/H of 10.7/ 32.5, BUN of 130, creatinine of 6.3, phosphorus 7.7. 1. Bilateral LE edema * Differential includes: drug-induced (amlodipine), right-sided heart failure, CHF (elevated BNP level, sxs not suggestive), anasarca secondary to CKD, venous insufficiency, diabetic nephropathy * Venous doppler was negative for DVT, CXR showed prominent cardiac silhouette, elevated right hemidiaphragm * Awaiting echocardiogram results * Patient was switched from amlodipine to hydralazine 25 mg PO BID and was educated to elevate legs 2. CKD * Baseline creatinine is ~2.5. Level in December was 3.45 with previous levels this year of 2.37, 2.88, 3.08. BUN levels have been ranging from 39-62 this past year. * Elevation in creatinine differential includes: acute kidney injury, amlodipine , diuretic use (torsemide was doubled from 20 to 40 mg daily by senior national account manager outpatient due to bilateral lower extremity edema with no change. diuretic has been held inpatient), myocardial dysfunction, infection (patient had UTI this year treated with Keflex), uncontrolled diabetes (HbA1c level of 6.5), urinary tract obstruction (renal US ruled it out) * Records from senior national account manager, Dr. Reyes in [place], and soldering machine setter, Dr. Lutz, in [place] were received * Repeat electrolytes (specifically potassium to monitor for hyperkalemia), BMP 3x daily * Monitor I&Os and daily weights * Urine cultures grew gram negative rods on day 2. Awaiting identification and susceptibilities. Differential includes: recurrent asymptomatic UTI, cystitis. * Creatinine levels have plateaued around 6.2 with patient continuing to be asymptomatic * Follow recommendations by Dr. Stevens regarding continuity of care and potentially starting inpatient dialysis or discharge patient and to have outpatient dialysis done with Dr. Reyes 3. Sinus bradycardia * Could be contributing to progressive CKD due to hypoperfusion * Differential includes: hypothyroidism (ruled out by TSH, T3/T4 labs), hypothermia, hypoglycemia (glucose levels upon admission were 137), obstructive sleep apnea (symptoms not suggestive, sick sinus syndrome (AV saloni blocking agents have been held) * In January 2015, patient was found to have atrial fibrillation/flutter and was anticoagulated and later cardioverted because she continued to be symptomatic. Patient has stopped anticoagulation due to patient reported side effect of bleeding. * Monitor EKG changes 4. Chronic conditions - gout, essential HTN, DM type 2, hyperlipidemia, secondary hyperparathyoidism, anemia * Gout: Fubuxostat 40 mg PO daily * HTN: Hydralazine 25 mg PO BID * DM type 2: controlling with diet and exercise, HbA1c level of 6.5 * Hyperlipidemia: Atorvastatin 40 mg PO daily * Secondary hyperparathyroidism: Calcitriol 0.5 mcg PO daily, monitor phosphorus level, patient takes Vit D at home. Sevelamer carbonate 1,600 mg PO has been added * Anemia: secondary to CKD, recent outpatient labs in December show H/H of 11.0/ 34.0
[2017-02-08 08:01] LABS: ABSOLUTE BASOPHIL COUNT 0.1 /CUMM (0.0-0.2); ABSOLUTE EOSINOPHIL COUNT 0.4 /CUMM (0.0-0.7); ABSOLUTE GRANULOCYTE CT 7.2 /CUMM (1.4-6.5); ABSOLUTE LYMPH COUNT 0.8 /CUMM (1.2-3.4); BASOPHIL % 0.7 % (0.0-2.0); EOSINOPHIL % 4.4 % (0-5); GRANULOCYTE % 75.8 % (42.2-75.2); HEMATOCRIT 32.5 % (37-47); MEAN CORPUSCULAR HGB 26.9 PG (27.0-31.0); MEAN CORPUSCULAR HGB CONC 32.8 G/DL (33.0-37.0); MEAN CORPUSCULAR VOLUME 81.9 FL (81.0-99.0); PLATELET COUNT 138 /CUMM (130-400); RBC DISTRIBUTION WIDTH 17.1 % (11.5-14.5); RED BLOOD CELL CT 3.97 /CUMM (4.20-5.40); WHITE BLOOD CELL COUNT 9.5 /CUMM (4.8-10.8)
--- NOTE | 2017-02-08 08:23 | PN- Att Addend ---
Attending Addendum Attending Brief Note Patient seen and examined. Plan of care discussed with the medical team and the patient. Available lab work and radiology test reports were reviewed. Patient is feeling well but continues to have leg edema. She denies any chest pain or difficulty breathing. No recent fevers have been noted. Vital Signs Date Time Temp Pulse Resp B/P B/P Pulse O2 O2 Flow FiO2 Mean Ox Delivery Rate 02/08 0658 98.1 57 18 112/60 91 Room Air 02/07 2259 98.0 50 16 112/70 94 Room Air 02/07 2047 54 120/60 02/07 1435 97.1 52 20 116/60 95 Room Air 02/07 0924 50 138/62 02/07 0923 138/62 Intake & Output 02/08 1600 02/08 0800 02/08 0000 Intake Total 120 530 Output Total 300 Balance -180 530 Intake, IV 210 Intake, Oral 120 320 Output, Urine 300 Exam: General: Patient awake alert oriented without any distress CVS: S1 plus S2 without any murmur or gallops Chest: Few scattered crepitation without any wheeze. There is no respiratory distress. Abdomen: Soft nontender, bowel sound present, no guarding or rebound ENGINEERING MGR: Awake alert oriented without any focal neuro deficit and follows command appropriately Extremities: 3+ pitting bilateral edema no clubbing or cyanosis noted Laboratory Tests 02/08 0654 Chemistry Sodium Pending Potassium Pending Chloride Pending Carbon Dioxide Pending Anion Gap Pending BUN Pending Creatinine Pending BUN/Creatinine Ratio Pending Phosphorus Pending Hematology CBC w Diff NO MAN DIFF REQ WBC (4.8 - 10.8 /CUMM) 9.5 RBC (4.20 - 5.40 /CUMM) 3.97 L Hgb (12.0 - 16.0 G/DL) 10.7 L Hct (37 - 47 %) 32.5 L MCV (81.0 - 99.0 FL) 81.9 MCH (27.0 - 31.0 PG) 26.9 L RDW (11.5 - 14.5 %) 17.1 H Plt Count (130 - 400 /CUMM) 138 MPV (7.4 - 10.4 FL) 9.0 Gran % (42.2 - 75.2 %) 75.8 H Lymphocytes % (20.5 - 51.1 %) 8.4 L Monocytes % (1.7 - 9.3 %) 10.7 H Eosinophils % (0 - 5 %) 4.4 Basophils % (0.0 - 2.0 %) 0.7 Absolute Granulocytes (1.4 - 6.5 /CUMM) 7.2 H Absolute Lymphocytes (1.2 - 3.4 /CUMM) 0.8 L Absolute Monocytes (0.10 - 0.60 /CUMM) 1.0 H Absolute Eosinophils (0.0 - 0.7 /CUMM) 0.4 Absolute Basophils (0.0 - 0.2 /CUMM) 0.1 PUBS MCHC (33.0 - 37.0 G/DL) 32.8 L Assessment * acute renal failure * chronic renal failure * History of gout * Lower extremity edema likely secondary to Norvasc or venous stasis; no evidence of CHF * Hyperphosphatemia * History of A. fib flutter * Sinus Bradycardia * Diabetes type 2 * Obesity * History of hypertension * Carotid stenosis and atherosclerosis Plan * As per nephrology note no urgent indication for hemodialysis at this point. Her Cr has not improved yet. Case discussed with nephrology. Dr. Stevens will talk to patient's hotbed lever operator to [place] and decide whether patient will initiate dialysis here or patient could be discharged home * Pt may need phoslo or renvela * Continue current medication; continue to hold torsemide * Recheck creatinine and phosphate tomorrow; * check echo report * Continue Crestor at home for carotid atherosclerosis; patient currently on Lipitor. Patient was counseled for lifestyle management * Patient appears stable for discharge Unless there is a plan to initiate dialysis. If patient does stay here I would start IV fluids.
--- NOTE | 2017-02-08 09:39 | PN- Nephrology ---
Assessment/Plan Assessment: 1. Acute on chronic kidney disease. The cause of this is not yet obvious. This may well be progression of her underlying kidney disease 2. Increased lower extremity edema. She has not been weighed since the . It is unclear as to what her weight is doing. 3. History of a flutter/A. fib. Followed by Dr Lutz 4. Diabetes mellitus 5. Hypertension. Both #4 and #5. Contribute to her progressive kidney failure 6. Secondary hyperparathyroidism. Her phosphorus is 8. Renvela needs to be started. Discussed with Dr. Osei. While the phosphorus is greater than 6, the calcitriol to be held. Suggestion: 1. No urgent dialytic need. 2. I am reluctant to start dialysis without more symptoms. We did discuss the fact that her creatinine is within the range at which 1 would consider starting dialysis. She lives and [place]. She wishes to continue with Dr. Reyes. Transport to and from dialysis from [place] in [place] will be quite trying. Still suspect that she would be best served to start dialysis electively here on this hospital stay and obtain an outpatient seat. Subjective Subjective: The patient reports that she feels well. She feels much better than when she came in. We discussed the fact that her serum creatinine has not budged. She denies nausea or vomiting area she denies dysgeusia. Objective Vital Signs and I&Os Vital Signs Date Time Temp Pulse Resp B/P B/P Pulse O2 O2 Flow FiO2 Mean Ox Delivery Rate 02/08 0658 98.1 57 18 112/60 91 Room Air 02/07 2259 98.0 50 16 112/70 94 Room Air 02/07 2047 54 120/60 02/07 1435 97.1 52 20 116/60 95 Room Air Intake & Output 02/08 1600 02/08 0400 02/07 1600 02/07 0400 02/06 1600 02/06 0400 Intake Total 120 530 730 400 120 360 Output Total 300 500 375 800 50 Balance -180 530 230 25 -680 310 Intake, IV 210 Intake, Oral 120 320 730 400 120 360 Number 1 Bowel Movements Output, Urine 300 500 375 800 50 Patient 273 lb 272 lb Weight Weight Chair scale Standing Scale Measurement Method Physical Exam: General Appearance: well developed/nourished, no apparent distress, alert, awake , anxious, obese Head: atraumatic, normal appearance Eyes: Bilateral: PERRL, EOMI, pale conjunctivae. Ears, Nose, Throat: normal pharynx, normal ENT inspection, hearing grossly normal Neck: normal inspection, supple, full range of motion, trachea mid line Respiratory: normal breath sounds, chest non-tender, lungs clear Cardiovascular: regular rate/rhythm, positive lower extremity edema, no rub Gastrointestinal: normal bowel sounds, soft, non-tender Back: normal inspection, normal range of motion Extremities: Positive lower extremity edema bilaterally Neurologic/Psych: no motor/sensory deficits, awake, alert, oriented x 3, no gross neurologic deficits Cranial Nerves: normal hearing, normal speech, PERRL Skin: intact, warm/dry Lymphatic: no cervical supraclavicular or axillary Lymphadenopathy Current Medications: Current Medications Sig/Cole Start time Last Medication Dose Route Stop Time Status Admin Acetaminophen 325 MG Q6 PRN 02/05 1700 AC PO Aspirin 81 MG DAILY 02/06 1000 AC 02/07 PO 0924 Atorvastatin Calcium 40 MG 1700 02/07 1700 AC 02/07 PO 1742 Calcitriol 0.5 MCG DAILY 02/06 1618 AC 02/07 PO 0924 Febuxostat 40 MG DAILY 02/06 1130 AC 02/07 PO 0924 Heparin Sodium 5,000 UNIT Q8 02/05 1648 AC (Porcine) SC Hydralazine HCl 25 MG BID 02/06 1153 AC 02/07 PO 2047 Patient Medication 1 ED .[facility] ONE 02/07 1413 [place] Teaching ED 02/07 1414 Sevelamer Carbonate 1,600 MG WM 02/08 1200 AC PO Results Pertinent Lab Results: Laboratory Tests 02/08 02/07 0654 0650 Chemistry Sodium (137 - 145 mmol/L) 141 141 Potassium (3.5 - 5.1 mmol/L) 4.0 4.0 Chloride (98 - 107 mmol/L) 108 H 109 H Carbon Dioxide (22 - 30 mmol/L) 17 L 17 L Anion Gap (5 - 16) 16 15 BUN (7 - 17 mg/dL) 130 *H 127 *H Creatinine (0.5 - 1.0 mg/dL) 6.3 *H 6.3 *H Estimated GFR (>60 ml/min) 7 L 7 L BUN/Creatinine Ratio (7 - 25 %) 20.6 20.2 Phosphorus (2.5 - 4.5 mg/dL) 7.7 H 8.0 H Hematology CBC w Diff NO MAN DIFF REQ NO MAN DIFF REQ WBC (4.8 - 10.8 /CUMM) 9.5 8.9 RBC (4.20 - 5.40 /CUMM) 3.97 L 3.93 L Hgb (12.0 - 16.0 G/DL) 10.7 L 10.6 L Hct (37 - 47 %) 32.5 L 32.2 L MCV (81.0 - 99.0 FL) 81.9 81.9 MCH (27.0 - 31.0 PG) 26.9 L 26.9 L RDW (11.5 - 14.5 %) 17.1 H 17.5 H Plt Count (130 - 400 /CUMM) 138 136 MPV (7.4 - 10.4 FL) 9.0 8.8 Gran % (42.2 - 75.2 %) 75.8 H 71.6 Lymphocytes % (20.5 - 51.1 %) 8.4 L 11.4 L Monocytes % (1.7 - 9.3 %) 10.7 H 12.0 H Eosinophils % (0 - 5 %) 4.4 4.7 Basophils % (0.0 - 2.0 %) 0.7 0.3 Absolute Granulocytes (1.4 - 6.5 /CUMM) 7.2 H 6.4 Absolute Lymphocytes (1.2 - 3.4 /CUMM) 0.8 L 1.0 L Absolute Monocytes (0.10 - 0.60 /CUMM) 1.0 H 1.1 H Absolute Eosinophils (0.0 - 0.7 /CUMM) 0.4 0.4 Absolute Basophils (0.0 - 0.2 /CUMM) 0.1 0 PUBS MCHC (33.0 - 37.0 G/DL) 32.8 L 32.8 L 02/06 02/06 02/06 2235 1425 1038 Chemistry Sodium (137 - 145 mmol/L) 140 142 Potassium (3.5 - 5.1 mmol/L) 4.0 3.9 Chloride (98 - 107 mmol/L) 107 108 H Carbon Dioxide (22 - 30 mmol/L) 18 L 18 L Anion Gap (5 - 16) 15 15 BUN (7 - 17 mg/dL) 126 *H 122 *H Creatinine (0.5 - 1.0 mg/dL) 6.2 *H 6.2 *H Estimated GFR (>60 ml/min) 7 L 7 L BUN/Creatinine Ratio (7 - 25 %) 20.3 19.7 Serology Hepatitis A IgM Ab (NONREACTIVE) NONREACTIVE Hep Bs Antigen (NONREACTIVE) NONREACTIVE Hep B Core IgM Ab Conf (NONREACTIVE) NONREACTIVE Hepatitis C Antibody (NONREACTIVE) NONREACTIVE Urines Urine Color (YEL,AMB,STR) YEL Urine Clarity (CLEAR) CLDY H Urine pH (5.0 - 8.0) 6.0 Ur Specific [place] (1.001 - 1.035) 1.020 Urine Protein (NEG,<30 MG/DL) 100 H Urine Ketones (NEG) NEG Urine Nitrite (NEG) NEG Urine Bilirubin (NEG) NEG Urine Urobilinogen (0.1 - 1.0 EU/dl) 0.2 Ur Leukocyte Esterase (NEG) MOD H Ur Microscopic SEDIMENT EXAMINED Urine RBC (0 - 5 /HPF) 10-15 H Urine WBC (0 - 2 /HPF) > 75 H Ur Epithelial Cells (NONE,FEW) RARE Urine Bacteria (NEG/NONE) MANY H Hyaline Casts (0/LPF) RARE H Urine Hemoglobin (NEG) LARGE H Urine Glucose (N MG/DL) NEG 02/06 Chemistry Sodium (137 - 145 mmol/L) 141 Potassium (3.5 - 5.1 mmol/L) 4.1 Chloride (98 - 107 mmol/L) 108 H Carbon Dioxide (22 - 30 mmol/L) 17 L Anion Gap (5 - 16) 15 BUN (7 - 17 mg/dL) 123 *H Creatinine (0.5 - 1.0 mg/dL) 6.1 *H Estimated GFR (>60 ml/min) 7 L BUN/Creatinine Ratio (7 - 25 %) 19.7 Hemoglobin A1c (4.2 - 5.8 %) 6.5 H Phosphorus (2.5 - 4.5 mg/dL) 7.8 H Troponin I (< 0.11 ng/ml) < 0.01 < 0.01 TSH &T3 &Free T4 Intrp (0.270 - 4.20 uIU/mL) 2.680 Hematology CBC w Diff NO MAN DIFF REQ WBC (4.8 - 10.8 /CUMM) 8.9 RBC (4.20 - 5.40 /CUMM) 4.00 L Hgb (12.0 - 16.0 G/DL) 10.7 L Hct (37 - 47 %) 32.7 L MCV (81.0 - 99.0 FL) 81.9 MCH (27.0 - 31.0 PG) 26.8 L RDW (11.5 - 14.5 %) 17.0 H Plt Count (130 - 400 /CUMM) 143 MPV (7.4 - 10.4 FL) 9.0 Gran % (42.2 - 75.2 %) 74.6 Lymphocytes % (20.5 - 51.1 %) 10.7 L Monocytes % (1.7 - 9.3 %) 9.2 Eosinophils % (0 - 5 %) 4.8 Basophils % (0.0 - 2.0 %) 0.7 Absolute Granulocytes (1.4 - 6.5 /CUMM) 6.6 H Absolute Lymphocytes (1.2 - 3.4 /CUMM) 1.0 L Absolute Monocytes (0.10 - 0.60 /CUMM) 0.8 H Absolute Eosinophils (0.0 - 0.7 /CUMM) 0.4 Absolute Basophils (0.0 - 0.2 /CUMM) 0.1 PUBS MCHC (33.0 - 37.0 G/DL) 32.7 L 02/05 02/05 1320 1316 Chemistry Sodium (137 - 145 mmol/L) 142 Potassium (3.5 - 5.1 mmol/L) 4.1 Chloride (98 - 107 mmol/L) 108 H Carbon Dioxide (22 - 30 mmol/L) 17 L Anion Gap (5 - 16) 17 H BUN (7 - 17 mg/dL) 124 *H Creatinine (0.5 - 1.0 mg/dL) 6.2 *H Estimated GFR (>60 ml/min) 7 L BUN/Creatinine Ratio (7 - 25 %) 20.0 Glucose (65 - 99 mg/dL) 137 H Calcium (8.4 - 10.2 mg/dL) 9.1 Magnesium (1.6 - 2.3 mg/dL) 2.4 H Total Bilirubin (0.2 - 1.3 mg/dL) 0.9 AST (14 - 36 U/L) 12 L ALT (9 - 52 U/L) 19 Alkaline Phosphatase (<127 U/L) 170 H Troponin I (< 0.11 ng/ml) < 0.01 [id number] Pept (<125 pg/mL) 27395 H Total Protein (6.3 - 8.2 g/dL) 6.6 Albumin (3.5 - 5.0 g/dL) 3.7 Globulin (1.9 - 4.2 gm/dL) 2.9 Albumin/Globulin Ratio (1.1 - 2.2 %) 1.3 Coagulation D-Dimer High Sensitivty (0 - 243 ng/ml) 305 H Hematology CBC w Diff NO MAN DIFF REQ WBC (4.8 - 10.8 /CUMM) 9.7 RBC (4.20 - 5.40 /CUMM) 4.21 Hgb (12.0 - 16.0 G/DL) 11.1 L Hct (37 - 47 %) 34.3 L MCV (81.0 - 99.0 FL) 81.4 MCH (27.0 - 31.0 PG) 26.5 L RDW (11.5 - 14.5 %) 17.7 H Plt Count (130 - 400 /CUMM) 158 MPV (7.4 - 10.4 FL) 8.5 Gran % (42.2 - 75.2 %) 74.2 Lymphocytes % (20.5 - 51.1 %) 11.6 L Monocytes % (1.7 - 9.3 %) 8.8 Eosinophils % (0 - 5 %) 4.6 Basophils % (0.0 - 2.0 %) 0.8 Absolute Granulocytes (1.4 - 6.5 /CUMM) 7.2 H Absolute Lymphocytes (1.2 - 3.4 /CUMM) 1.1 L Absolute Monocytes (0.10 - 0.60 /CUMM) 0.9 H Absolute Eosinophils (0.0 - 0.7 /CUMM) 0.5 Absolute Basophils (0.0 - 0.2 /CUMM) 0.1 PUBS MCHC (33.0 - 37.0 G/DL) 32.5 L Urines Urine Color Cancelled Urine Clarity Cancelled Urine pH Cancelled Ur Specific [place] Cancelled Urine Protein Cancelled Urine Ketones Cancelled Urine Nitrite Cancelled Urine Bilirubin Cancelled Urine Urobilinogen Cancelled Ur Leukocyte Esterase Cancelled Ur Microscopic Cancelled Urine Hemoglobin Cancelled Urine Glucose Cancelled
--- NOTE | 2017-02-08 10:06 | PN- Cardiology ---
Subjective Subjective: Feels improved overall. Feels as though her edema is less pronounced. Objective Vital Signs and I&Os Vital Signs Date Time Temp Pulse Resp B/P B/P Pulse O2 O2 Flow FiO2 Mean Ox Delivery Rate 02/08 0658 98.1 57 18 112/60 91 Room Air 02/07 2259 98.0 50 16 112/70 94 Room Air 02/07 2047 54 120/60 02/07 1435 97.1 52 20 116/60 95 Room Air Intake & Output 02/08 1600 02/08 0800 02/08 0000 02/07 1600 02/07 0800 02/07 0000 Intake Total 120 530 480 250 400 Output Total 300 200 300 375 Balance -180 530 280 -50 25 Intake, IV 210 Intake, Oral 120 320 480 250 400 Number 1 Bowel Movements Output, Urine 300 200 300 375 Physical Exam: Well-developed, obese elderly female in no acute distress. Signs: See above. Lungs: Clear to auscultation. Heart: S1, S2 with grade 1-2/6 systolic murmur. Abdomen: Soft, nontender, positive bowel sounds. Extremities: 2+ bilateral lower extremity edema. Current Medications: Current Medications Sig/Cole Start time Last Medication Dose Route Stop Time Status Admin Acetaminophen 325 MG Q6 PRN 02/05 1700 AC PO Aspirin 81 MG DAILY 02/06 1000 AC 02/07 PO 0924 Atorvastatin Calcium 40 MG 1700 02/07 1700 AC 02/07 PO 1742 Calcitriol 0.5 MCG DAILY 02/06 1618 AC 02/07 PO 0924 Febuxostat 40 MG DAILY 02/06 1130 AC 02/07 PO 0924 Heparin Sodium 5,000 UNIT Q8 02/05 1648 AC (Porcine) SC Hydralazine HCl 25 MG BID 02/06 1153 AC 02/07 PO 2047 Patient Medication 1 ED .STK-MED ONE 02/07 1413 DC Teaching ED 02/07 1414 Sevelamer Carbonate 1,600 MG WM 02/08 1200 AC PO Results Recent Imaging Studies: Carotid ultrasound (02/06/2017): 1. RIGHT: Nonhemodynamically significant stenosis of the proximal right internal carotid artery corresponding to a 0-49% stenosis by velocity criteria. 2. LEFT: Nonhemodynamically significant stenosis of the proximal left internal carotid artery corresponding to a 0-49% stenosis by velocity criteria. 3. Severe occlusive plaque visualized within the proximal right external carotid artery. 4. Elevated velocity within the left external carotid artery consistent with moderate to severe stenosis. Assessment/Plan Assessment/Plan [id number] w/ hx of gout, "tachycardia" on BB, HTN, DM, & CKD (baseline creat ~ 2.9 mg/dl) w/ hx recent c/o increasing bilateral LE edema w/o improvement following an increase in her Torsemide from 20 mg daily to 40 mg daily, but w/ increasing lethargy/weakness who we are asked to evaluate and help manage in regard to persistent "junctional" bradycardia. On close review of her ECG, P waves are apparent in lead II and there is evidence of a prolonged WI interval. Her rhythm is therefore not "junctional" bradycardia, but rather sinus bradycardia with first-degree AV block. Overall, feeling improved, however, her renal function is essentially unchanged. Nephrology to determine her suitability for hemodialysis. Blood pressure is acceptable as is her heart rate in the 50 beat per minute range. Fortunately, no high-grade stenosis in the internal carotid arteries. Continue telemetry? Yes
--- NOTE | 2017-02-08 10:29 | Patient Discharge Instructions ---
Discharge Instructions General Discharge Information Special Instructions: Follow up with your icing and glaze maker for further evaluation of your renal function and possibly started hemodialysis. Follow up with your primary care provider after discharge. Schedule an appointment with your Director Of Mechanical Engineering sometime next week. Obtain a Basic Metabolic Panel blood test on monday02/13/17. Establish care with a vascular surgeon for further evaluation of your carotid arteries. Restart taking Crestor. Start Taking Hydralazine as directed, stop taking Carvedilol and Amlodipine. Start Taking Revela as directed. Stop Taking Calcitriol untill instructed to resume it by your icing and glaze maker. Inform them of your hospitalization. Acute Coronary Syndrome Inclusion Criteria At DC or during hospital stay patient has or had the following: ACS DIAGNOSIS No Discharge Core Measures Meds if any: Prescribed or Continued at Discharge Meds if any: NOT Prescribed or Continued at Discharge Congestive Heart Failure Inclusion Criteria At DC or during hospital stay patient has or had the following: CHF DIAGNOSIS No Discharge Core Measures Meds if any: Prescribed or Continued at Discharge Meds if any: NOT Prescribed or Continued at Discharge Cerebrovascular accident Inclusion Criteria At DC or during hospital stay patient has or had the following: CVA/TIA Diagnosis No Discharge Core Measures Meds if any: Prescribed or Continued at Discharge Meds if any: NOT Prescribed or Continued at Discharge Venous thromboembolism Inclusion Criteria VTE Diagnosis No VTE Type NONE VTE Confirmed by (Test) NONE Discharge Core Measures - Per Current guidelines, there needs to be overlap - treatment for the first 5 days of Warfarin therapy. - If discharged on Warfarin prior to 5 days of - overlap therapy, the patient will need to be - assessed for post discharge needs including - *Post discharge parental anticoagulation - *Warfarin and/or parental anticoagulation education - *Follow up date to check INR post discharge At least 5 days overlap therapy as Inpatient No Meds if any: Prescribed or Continued at Discharge Note: Overlap Therapy is Warfarin and Anticoagulant Meds if any: NOT Prescribed or Continued at Discharge
[2017-02-08 14:47] VITALS: BP 130/62
--- NOTE | 2017-02-08 18:12 | ECHOCARDIOGRAM REPORT ---
GILL CUETO Age: 72 : 1945 Gender: F Exam Date: 02/07/2017 19:49 Exam Location: 1 [address] Ht (in): 69 Wt (lb): 273 BSA: 2.51 BP: 116 / 60 Ordering Physician: ROSEANNA GOLD, Referring Physician: Terrence Aponte MD Technologist: Fernanda Coleman [facility] Room Number: 172 Indications: HEART FAILURE Rhythm: Sinus Technical Quality: Fair FINDINGS Left Ventricle Normal size left ventricle. Mild concentric left ventricular hypertrophy. No obvious regional wall motion abnormalities. Normal left ventricular ejection fraction visually estimated at 65%. Restrictive filling pattern of the left ventricle for age (stage 3 diastolic dysfunction). Right Ventricle Normal right ventricular size and function. Right Atrium Normal right atrial size. Elevated right atrial pressure. Left Atrium Mild left atrial dilatation. Mitral Valve Mild mitral annular calcification. Mitral valve mildly thickened. Mild mitral regurgitation. Aortic Valve Trileaflet aortic valve. Diffuse mild thickening of the aortic valve cusps with mildly aortic valve not well visualized, grossly normal. reduced excursion. Mild aortic stenosis. Mild aortic regurgitation. Tricuspid Valve Structurally normal tricuspid valve. Mild tricuspid regurgitation. Moderate pulmonary hypertension. Right ventricular systolic pressure estimated to be elevated at 56 mmHg. Pulmonic Valve Pulmonic valve not well visualized, grossly normal. Mild pulmonic regurgitation. Pericardium No pericardial effusion. Great Vessels Normal size aortic root. Dilated inferior vena cava. CONCLUSIONS Normal size left ventricle. Mild concentric left ventricular hypertrophy. No obvious regional wall motion abnormalities. Normal left ventricular ejection fraction visually estimated at 65%. Restrictive filling pattern of the left ventricle for age (stage 3 diastolic dysfunction). Normal right ventricular size and function. Normal right atrial size. Elevated right atrial pressure. Mild left atrial dilatation. Mild mitral regurgitation. Mild aortic stenosis. Mild aortic regurgitation. Mild tricuspid regurgitation. Moderate pulmonary hypertension. Mild pulmonic regurgitation. Dilated inferior vena cava. Terrence Aponte M.D. (Electronically Signed) Final Date: 08 February 2017 18:12 MEASUREMENTS (Male / Female) Normal Values 2D ECHO LV Diastolic Diameter PLAX 5.2 cm 4.2 - 5.9 / 3.9 - 5.3 cm LV Systolic Diameter PLAX 3.3 cm 2.1 - 4.0 cm LV Fractional Shortening PLAX 36.5 % 25 - 46 % LV Ejection Fraction 2D Teich 65.9 % IVS Diastolic Thickness 1.2 cm LVPW Diastolic Thickness 1.2 cm LV Relative Wall Thickness 0.5 RV Internal Dim ED PLAX 3.2 cm 1.9 - 3.8 cm LVOT Diameter 2.2 cm Aortic Root Diameter 3.4 cm LA Systolic Diameter LX 4.5 cm 3.0 - 4.0 / 2.7 - 3.8 cm LA Volume 61.0 cm 18 - 58 / 22 - 52 cm Ascending Aorta Diameter 3.3 cm DOPPLER AV Peak Velocity 230.0 cm/s AV Peak Gradient 21.2 mmHg AV Mean Velocity 149.0 cm/s AV Mean Gradient 11.0 mmHg AV Velocity Time Integral 59.0 cm LVOT Peak Velocity 158.0 cm/s LVOT Peak Gradient 10.0 mmHg LVOT Mean Velocity 112.0 cm/s LVOT Mean Gradient 6.0 mmHg LVOT Velocity Time Integral 42.6 cm LVOT Stroke Volume 161.9 cm AV Area Cont Eq vti 2.7 cm AV Area Cont Eq pk 2.6 cm MV Peak Velocity 119.0 cm/s MV Peak Gradient 5.7 mmHg MV Mean Velocity 57.4 cm/s MV Mean Gradient 2.0 mmHg Mitral E Point Velocity 100.0 cm/s Mitral A Point Velocity 48.4 cm/s Mitral E to A Ratio 2.1 MV PHT Velocity 127.0 cm/s MV Deceleration Colbert 402.0 cm/s MV Pressure Half Time 94.8 ms MV Area PHT 2.3 cm MV Deceleration Time 141.0 ms TR Peak Velocity 358.0 cm/s TR Peak Gradient 51.3 mmHg Right Atrial Pressure 5.0 mmHg Pulmonary Artery Systolic Pressu 56.3 mmHg Right Ventricular Systolic Press 56.3 mmHg PV Peak Velocity 120.0 cm/s PV Peak Gradient 5.8 mmHg PV Mean Velocity 66.8 cm/s PV Mean Gradient 2.0 mmHg PV Velocity Time Integral 27.4 cm LV E' Lateral Velocity 8.0 cm/s Mitral E to LV E' Lateral Ratio 12.5 LV E' Septal Velocity 6.5 cm/s Mitral E to LV E' Septal Ratio 15.3
[2017-02-08 23:21] VITALS: BP 122/64
--- NOTE | 2017-02-09 07:12 | PN- Housestaff ---
Subjective Follow-up For: RAMO on CKD Lower extremity swelling History of AFib/Flutter Tele-Events Since Last Visit: NSR 1st degree AVB No events Subjective: Patient seen and examined. She is seen sitting upright in bed resting comfortably. She appears to be in no acute distress. She reports feeling well and continues to stay that her feet feel 'much better'. Her plant tour guide reportedly contacted her yesterday, but she was unable to get to the phone in time for the call. Otherwise she denies any fever, chills, chest pain, palpitations, shortness of breath, nausea, vomiting, diarrhea. Review of Systems Constitutional: Reports: see HPI. Objective Last 24 Hrs of Vital Signs/I&O Vital Signs Date Time Temp Pulse Resp B/P B/P Pulse O2 O2 Flow FiO2 Mean Ox Delivery Rate 02/09 0905 56 122/62 02/09 0800 93 Room Air 02/09 0749 98.6 56 18 122/62 93 Room Air 02/08 2321 99.0 50 16 122/64 91 Room Air 02/08 2232 Room Air 02/08 2057 56 130/64 02/08 1447 97.8 55 18 130/62 95 Room Air Intake & Output 02/09 1600 02/09 0800 02/09 0000 Intake Total 250 240 Output Total Balance 250 240 Intake, Oral 250 240 Patient 125.815 kg Weight Physical Exam General Appearance: Alert, Oriented X3, Cooperative, No Acute Distress Other Physical Findings: General- well developed, morbidly obese elderly woman in no acute distress HEENT- NCAT, PERRL, EOMI, anicteric sclera Chest- S1, S2 w/o m/g/r Lung- CTA bilaterally Abdomen- Soft, obese, nontender, nondistended Neuro- Awake and alert, CN II-XII grossly intact Ext- 4+ bilateral lower extremity pitting edema Current Medications: Current Medications Sig/Cole Start time Last Medication Dose Route Stop Time Status Admin Acetaminophen 325 MG Q6 PRN 02/05 1700 AC PO Aspirin 81 MG DAILY 02/06 1000 AC 02/09 PO 0905 Atorvastatin Calcium 40 MG 1700 02/07 1700 AC 02/08 PO 1711 Febuxostat 40 MG DAILY 02/06 1130 AC 02/09 PO 0905 Heparin Sodium 5,000 UNIT Q8 02/05 1648 AC (Porcine) SC Hydralazine HCl 25 MG BID 02/06 1153 AC 02/09 PO 0905 Sevelamer Carbonate 1,600 MG WM 02/08 1200 AC 02/09 PO 1206 Torsemide 20 MG DAILY 02/09 1151 AC PO Last 24 Hrs of Lab/Rayshawn Results Last 24 Hrs of Labs/Mics: Laboratory Tests 02/09/17 0605: Anion Gap 14, Estimated GFR 7 L, BUN/Creatinine Ratio 22.7, Calcium 8.7, Phosphorus 7.0 H Assessment/Plan Assessment: 72 year old woman with multiple medical problems significant for chronic kidney disease, right upper extremity AV fistula, NIDDM, HTN, and gout brought in by ambulance due to bilateral lower extremity edema. #Acute Kidney Injury #Chronic Kidney Disease #Hypertension Patient of plant tour guide Dr. Reyes. She reports baseline creatinine of around 2.9. Vitals were within normal limits upon ED evaluation. Labs were significant for BUN/Cr 124/6.2 and BNP 14,900, d-dimer 305. Renal Ultrasound showed bilateral renal cortical atrophy without any obstructuon and a moderate amount of asictic fluid. Hepatitis Panel negative. Patient has had persistently elevated creatinine after several daily serum chemistries. She is currently declining inpatient hemodialysis and would like to follow up with her plant tour guide in [place]. Revela was started with meals and Calcitrol held for elevated phosphorus. Torsemide was restarted on final hospital day. PT revaluated the patient and determined that she would benefit from short term rehabilitation. She is discharged to [facility] with instruction to obtain repeat BMP on monday and to see her Director Of Automation later in the week. -Telemetry -Strict I&O's, daily weights -Torsemide restarted -Calcitriol held for elevated phosphorus -Renvela 1600mg PO WM -Hydralazine 25mg PO BID -Cardiologuy/Nephrology consults -Discharge to [facility] #History of Gout-Febuxostat 40mg PO Daily #Hyperlipidemia-Atorvastatin 40mg PO Daily Pain Plan-Acetaminophen Diet-Renal Dialysis Diet DVT PPx-subcutaneous heparin Code Status-FULL CODE Problem List: 1. Chronic kidney disease (CKD) Pain Ratin Pain Location: None Pain Goal: Remain pain free Pain Plan: See assessment Tomorrow's Labs & Rationales: None
[2017-02-09 07:49] VITALS: BP 122/62
--- NOTE | 2017-02-09 08:00 | PN- Student ---
TORO KEATING 02/09/17 0757: Subjective Subjective: Patient was seen and examined this morning. No events reports overnight. Patient feels that she is ready to go home. Denies chest pain, difficulty breathing, abdominal pain, bloating, abdominal discomfort, nausea, fever, vomiting, diarrhea, headache, lightheadedness, dizziness. Current Medications Sig/Cole Start time Last Medication Dose Route Stop Time Status Admin Acetaminophen 325 MG Q6 PRN 02/05 1700 AC PO Aspirin 81 MG DAILY 02/06 1000 AC 02/08 PO 1010 Atorvastatin Calcium 40 MG 1700 02/07 1700 AC 02/08 PO 1711 Calcitriol 0.5 MCG DAILY 02/06 1618 DC 02/08 PO 1011 Febuxostat 40 MG DAILY 02/06 1130 AC 02/08 PO 1010 Heparin Sodium 5,000 UNIT Q8 02/05 1648 AC (Porcine) SC Hydralazine HCl 25 MG BID 02/06 1153 AC 02/08 PO 205 Sevelamer Carbonate 1,600 MG WM 02/08 1200 AC 02/08 PO 171 Objective Objective: Physical Exam: General: calm, cooperative, in no acute distress, obese female Skin: no rashes, cyanosis, pallor Neck: supple, carotid bruits bilaterally Lungs: decreased breath sounds bilaterally Heart: regular rhythm, bradycardic, 1/6 systolic murmur, no gallops or rubs Abdomen: soft, nontender, normoactive bowel sounds Extremities: 3+ pitting edema, erythema limited proximal to ankles, LE warm to touch, no pain upon palpation of LE Neuro: alert and oriented x3, no neurologic deficits Vital Signs Date Time Temp Pulse Resp B/P B/P Pulse O2 O2 Flow FiO2 Mean Ox Delivery Rate 02/09 0749 98.6 56 18 122/62 93 Room Air 02/08 2321 99.0 50 16 122/64 91 Room Air 02/08 2232 Room Air 02/08 2057 56 130/64 02/08 1447 97.8 55 18 130/62 95 Room Air 02/08 1149 Room Air Room Air 02/08 1025 93 Room Air Room Air 02/08 1015 54 142/66 Intake & Output 02/09 1600 02/09 0800 02/09 0000 Intake Total 250 240 Output Total Balance 250 240 Intake, Oral 250 240 Echocardiogram (02/07/17): Normal size left ventricle. Mild concentric left ventricular hypertrophy. No obvious regional wall motion abnormalities. Normal left ventricular ejection fraction visually estimated at 65%. Restrictive filling pattern of the left ventricle for age (stage 3 diastolic dysfunction). Normal right ventricular size and function. Normal right atrial size. Elevated right atrial pressure. Mild left atrial dilatation. Mild mitral regurgitation. Mild aortic stenosis. Mild aortic regurgitation. Mild tricuspid regurgitation. Moderate pulmonary hypertension. Mild pulmonic regurgitation. Dilated inferior vena cava. Results Results: Laboratory Tests 02/09/17 0605: Anion Gap 14, Estimated GFR 7 L, BUN/Creatinine Ratio 22.7, Calcium 8.7, Phosphorus 7.0 H 02/08/17 0654: Anion Gap 16, Estimated GFR 7 L, BUN/Creatinine Ratio 20.6, Phosphorus 7.7 H, CBC w Diff NO MAN DIFF REQ, RBC 3.97 L, MCV 81.9, MCH 26.9 L, RDW 17.1 H, MPV 9.0, Gran % 75.8 H, Lymphocytes % 8.4 L, Monocytes % 10.7 H, Eosinophils % 4.4, Basophils % 0.7, Absolute Granulocytes 7.2 H, Absolute Lymphocytes 0.8 L, Absolute Monocytes 1.0 H, Absolute Eosinophils 0.4, Absolute Basophils 0.1, PUBS MCHC 32.8 L 02/07/17 0650: Anion Gap 15, Estimated GFR 7 L, BUN/Creatinine Ratio 20.2, Phosphorus 8.0 H, CBC w Diff NO MAN DIFF REQ, RBC 3.93 L, MCV 81.9, MCH 26.9 L, RDW 17.5 H, MPV 8.8, Gran % 71.6, Lymphocytes % 11.4 L, Monocytes % 12.0 H, Eosinophils % 4.7, Basophils % 0.3, Absolute Granulocytes 6.4, Absolute Lymphocytes 1.0 L, Absolute Monocytes 1.1 H, Absolute Eosinophils 0.4, Absolute Basophils 0, PUBS MCHC 32.8 L 02/06/17 2235: Anion Gap 15, Estimated GFR 7 L, BUN/Creatinine Ratio 20.3 02/06/17 1425: Anion Gap 15, Estimated GFR 7 L, BUN/Creatinine Ratio 19.7, Hepatitis A IgM Ab NONREACTIVE, Hep Bs Antigen NONREACTIVE, Hep B Core IgM Ab Conf NONREACTIVE, Hepatitis C Antibody NONREACTIVE 02/06/17 1038: Urine Color YEL, Urine Clarity CLDY H, Urine pH 6.0, Ur Specific Woden 1.020, Urine Protein 100 H, Urine Ketones NEG, Urine Nitrite NEG, Urine Bilirubin NEG, Urine Urobilinogen 0.2, Ur Leukocyte Esterase MOD H, Ur Microscopic SEDIMENT EXAMINED, Urine RBC 10-15 H, Urine WBC > 75 H, Ur Epithelial Cells RARE, Urine Bacteria MANY H, Hyaline Casts RARE H, Urine Hemoglobin LARGE H, Urine Glucose NEG Microbiology 02/06 1512 URINE ROUT: Urine Culture - COMP KLEBSIELLA PNEUMONIAE Assessment/Plan Assessment: Assessment and Plan: 72 yo female with PMHx significant for CKD stage 4, DM type 2, A.fib/flutter not on anticoagulation, and HTN who presented on Monday for worsening bilateral lower extremity edema of 1 week. Patient is afebrile (98.6), normotensive (122/ 62), and bradycardic (56). Patient is 93% on room air. Upon admission, labs showed H/H of 11.1/34.3, BUN of 124, creatinine of 6.2, GFR of 7, [place] [address], and anion gap of 17. D-Dimer level of 305 and negative serial troponin levels. U /A showed leukocyte esterase, bacteria, hemoglobin, hyaline casts, protein of 100, RBC 10-15, WBC >75. Renal US doesn't show any evidence of urinary tract obstruction. Carotid doppler results show severe occlusive plaque with proximal right external carotid artery and elevated velocity with left external carotid artery. Urine culture grew Klebsiella Pneumoniae. Today, labs reveal creatinine of 5.9 and phosphorus of 7.0. 1. Bilateral LE edema * Differential includes: drug-induced (amlodipine), right-sided heart failure, CHF (elevated BNP level, sxs and echo not suggestive), anasarca secondary to CKD, venous insufficiency, diabetic nephropathy * Venous doppler was negative for DVT, CXR showed prominent cardiac silhouette, elevated right hemidiaphragm * Patient was switched from amlodipine to hydralazine 25 mg PO BID and was educated to elevate legs * Echocardiogram shows no obvious wall motion abnormalities, mild concentric LVH , LVEF of 65%, stage 3 diastolic dysfunction, moderate pulmonary HTN * Patient's weight yesterday was 277 (4 lb increase from the previous day), Torsemide 20 mg PO daily to be restarted * Patient to be discharged to [facility] 2. CKD * Baseline creatinine is ~2.5. Level in December was 3.45 with previous levels this year of 2.37, 2.88, 3.08. BUN levels have been ranging from 39-62 this past year. * Elevation in creatinine differential includes: acute kidney injury, amlodipine , diuretic use (torsemide was doubled from 20 to 40 mg daily by field crop ii farmworker outpatient due to bilateral lower extremity edema with no change. diuretic has been held inpatient), myocardial dysfunction, infection (patient had UTI this year treated with Keflex), uncontrolled diabetes (HbA1c level of 6.5), urinary tract obstruction (renal US ruled it out) * Records from field crop ii farmworker, Dr. Reyes in [place], and automatic silk screen printer, Dr. Lutz, in [place] were received * Repeat electrolytes (specifically potassium to monitor for hyperkalemia), BMP 3x daily * Monitor I&Os and daily weights * Urine cultures grew Klebsiella Pneumoniae. Differential includes: recurrent asymptomatic UTI, cystitis. Would treat if patient was symptomatic. * Creatinine level decreased slightly to 5.9 with patient continuing to be asymptomatic, no indication to start dialysis inpatient * Follow recommendations by Dr. Stevens regarding continuity of care, recheck kidney function on Monday at [facility], f/u with Dr. Reyes next week 3. Sinus bradycardia * Could be contributing to progressive CKD due to hypoperfusion * Differential includes: hypothyroidism (ruled out by TSH, T3/T4 labs), hypothermia, hypoglycemia (glucose levels upon admission were 137), obstructive sleep apnea (symptoms not suggestive, sick sinus syndrome (AV saloni blocking agents have been held) * In January 2015, patient was found to have atrial fibrillation/flutter and was anticoagulated and later cardioverted because she continued to be symptomatic. Patient has stopped anticoagulation due to patient reported side effect of bleeding. * Monitor EKG changes 4. Chronic conditions - gout, essential HTN, DM type 2, hyperlipidemia, secondary hyperparathyoidism, anemia * Gout: Fubuxostat 40 mg PO daily * HTN: Hydralazine 25 mg PO BID * DM type 2: controlling with diet and exercise, HbA1c level of 6.5 * Hyperlipidemia: Atorvastatin 40 mg PO daily * Secondary hyperparathyroidism: Calcitriol 0.5 mcg PO daily, monitor phosphorus level, patient takes Vit D at home. Sevelamer carbonate 1,600 mg PO has been added and Calcitriol d/c with phosphorus decreasing to 7.0 * Anemia: secondary to CKD, recent outpatient labs in December show H/H of 11.0/ 34.0
--- NOTE | 2017-02-09 09:10 | Discharge Summary ---
See Addendum Visit Information Visit Dates Admission Date: 02/05/17 Discharge Date: 02/09/17 Hospital Course Course Attending Physician: JOSÉ BARBOUR,VALENTÍN Primary Care Physician: PATIENT HAS NO PRIMARY CARE DR Consulting Request: 1 Consulting Specialty: Cardiology Consulting Request: 2 Consulting Specialty: Nephrology Hospital Course: 72-year-old female with a past medical history of type 2 diabetes complicated by nephropathy, hypertension,who presents to the ED for evaluation of bilateral lower extremity edema. Vitals at the time of admission temperature 97.3, pulse 46, respiration 18, blood pressure 133/60, saturating 95% on room air. Pertinent labs showed H&H of 11.1 /35.3(no baseline), MCV 81.4, sodium 142, potassium 4.1, carbon dioxide 17, anion gap of 17, BUN 124, creatinine 6.2( baseline 2.5 as per the patient), magnesium 2.4, alkaline phosphatase 170, troponins less than 0.01, BNP 14,900, d-dimer 305. UA was cloudy with proteinuria, moderate amount of leukocyte esterase, more than 75 WBCs, rare hyaline casts and large amounts of urine. EKG showed questionable junctional escape rhythm, prolonged RI, bradycardia Chest x-ray showed prominent cardiac silhouette, questionable pulmonary venous redistribution/small right-sided pleural effusion Ultrasound legs, negative for DVT. She was admitted to telemetry and the following problems were addressed: #AK I on CKD stage IV This was initially attributed to volume depletion in the setting of increased dose off torosemide which was held in the hospital as well as progression of her underlying chronic disease. Nephrology was consulted given her elevated serum creatinine and need for dialysis. Since the patient was asymptomatic, Nephro did not see the need for an urgent dialytic intervention. Records were obtained from Dr. Atwood to facilitate care. She was checked for hepatitis B and C antibody in anticipation of potential dialysis which were negative. Furosemide was held up until the day of discharge. Repeat serum chemistries were done with stability noted in her renal function she is to follow-up with her primary hydraulic jack mechanic next week and have a repeat BP check on 02/13/2017. #Bilateral lower extremity edema Was initially deemed to be secondary to being placed on a calcium channel matt for her high blood pressure. Since we could not initiate CORINNE inhibitor or ARB given her advanced renal disease, recommendations were made for one hydralazine is being for hypertension. Her lower extremity edema continued to remain the same. She was evaluated by physical therapy and recommended short- term rehabilitation upon discharge. #Sinus bradycardia Her initial EKG was questionable for junctional rhythm. She was evaluated by creel selector Dr. Aponte who thought it was low voltage with sinus bradycardia with first-degree AV block. An echocardiogram was done to evaluate left ventricular systolic and diastolic dysfunction. #History of paroxysmal atrial flutter fibrillation Of note patient has not had any anticoagulation as per her wishes. The risks and benefits were again discussed by the creel selector and the patient wished to hold off on anticoagulation. She was made aware of the potential risks of this decision White for embolic stroke. #Right external carotid artery stenosis Bruit was appreciated on physical examination which prompted an ultrasound of the carotid arteries which revealed nonhemodynamically significant stenosis of the left and right internal carotid artery however showed severe occlusive plaque within the proximal right external carotid artery. She should follow-up with vascular surgery as an outpatient. #Secondary hyperparathyroidism Her phosphorus was elevated and as per nephrology calcitriol was helpful. She was started on [place]. #History of gout She was continued on Febuxostat 40 mg by mouth daily #Hyperlipidemia She is continued on atorvastatin 40 mg by mouth daily -DVT prophylaxis She was continued on heparin 5000steady subcutaneous. Complications: None Allergies: Coded Allergies: sitagliptin (From [employer]) (Severe, THROAT CLOSURE 02/05/17) Significant Procedures: SERVICE DATE: 02/05/17 EXAM TYPE: RAD - XRY-PORTABLE CHEST XRAY FINDINGS: The lung volumes are low. The cardiac silhouette is prominent. There is pulmonary venous redistribution. There is elevation of the right hemidiaphragm. There is blunting of the right costophrenic angle questionable for a small right pleural effusion. The left lung is clear. There is no left pleural effusion. There is no pneumothorax. IMPRESSION: Prominent cardiac silhouette. Elevated right hemidiaphragm. Low lung volumes. Question pulmonary venous redistribution and small right pleural effusion. SERVICE DATE: 02/05/17 EXAM TYPE: US - US-EXT BILAT VENOUS DOPPLER FINDINGS: Respiratory variation, normal compression and augmented flow are noted throughout the lower extremities. The visualized common femoral vein, superficial femoral vein, profunda femoral vein, popliteal vein and midcalf peroneal and posterior tibial venous segments show no evidence of deep venous thrombosis. There is no Fierro's cyst. IMPRESSION: Normal triplex scan without evidence of deep venous thrombosis involving the lower extremities. SERVICE DATE: 02/06/17- EXAM TYPE: US - TW-[id number]-YYCNCVEDJ DOPPLER FINDINGS: Right side: 1. Moderate amount of heterogeneous plaque is seen in the CCA/ICA region. Severe occlusive plaque visualized within the right external carotid artery. 2. The common carotid artery velocity is 67 cm/s. 3. The internal carotid artery velocities are 69 cm/s systolic and 10 cm/s diastolic. 4. The external carotid artery appears occluded secondary to severe plaque burden. Left side: 1. Moderate to severe amount of heterogeneous plaque is seen in the ECA/ICA region. 2. The common carotid artery velocity is 96 cm/s. 3. The internal carotid artery velocities are 120 cm/s systolic and 14 cm/s diastolic. 4. The external carotid artery velocity is 265 cm/s. ADDITIONAL FINDINGS: 1. The vertebral arteries show antegrade flow. IMPRESSION: 1. RIGHT: Nonhemodynamically significant stenosis of the proximal right internal carotid artery corresponding to a 0-49% stenosis by velocity criteria. 2. LEFT: Nonhemodynamically significant stenosis of the proximal left internal carotid artery corresponding to a 0-49% stenosis by velocity criteria. 3. Severe occlusive plaque visualized within the proximal right external carotid artery. 4. Elevated velocity within the left external carotid artery consistent with moderate to severe stenosis. SERVICE DATE: 02/06/17-1722 EXAM TYPE: US - US-RENAL/KIDNEY FINDINGS: RIGHT KIDNEY: The patient has a large body habitus and the right kidney is suboptimally visualized. The kidney measures approximately 10.3 cm long, 4.6 cm AP and 5 cm transverse . There is diffuse, [id number]-zo-[id number] cortical atrophy. The cortical echotexture is normal. There are suboptimally visualized echogenic, shadowing foci in upper and lower poles of the kidney, suggestive of nephrolithiasis without hydronephrosis. LEFT KIDNEY: The left kidney measures 11.5 cm long, 5.3 cm AP and 4.8 cm transverse. There is mild-to moderate renal cortical atrophy. 0.6 cm calculus is seen in the interpolar region. A calculus is present in the lower pole, as well. No hydronephrosis. No focal parenchymal lesions are identified. BLADDER: The urinary bladder is underdistended. Ureteral jets were not visualized during the time of imaging. Moderate amount of ascitic fluid is present within the abdomen and pelvis. IMPRESSION: 1. Bilateral renal cortical atrophy. 2. Bilateral nephrolithiasis without evidence of urinary tract obstruction. 3. Moderate volume of ascitic fluid is present in the abdomen and pelvis. SERVICE DATE: 02/07/17 EXAM TYPE: CARD - ECHOCARDIOGRAM FINDINGS Left Ventricle Normal size left ventricle. Mild concentric left ventricular hypertrophy. No obvious regional wall motion abnormalities. Normal left ventricular ejection fraction visually estimated at 65%. Restrictive filling pattern of the left ventricle for age (stage 3 diastolic dysfunction). Right Ventricle Normal right ventricular size and function. Right Atrium Normal right atrial size. Elevated right atrial pressure. Left Atrium Mild left atrial dilatation. Mitral Valve Mild mitral annular calcification. Mitral valve mildly thickened. Mild mitral regurgitation. Aortic Valve Trileaflet aortic valve. Diffuse mild thickening of the aortic valve cusps with mildly aortic valve not well visualized, grossly normal. reduced excursion. Mild aortic stenosis. Mild aortic regurgitation. Tricuspid Valve Structurally normal tricuspid valve. Mild tricuspid regurgitation. Moderate pulmonary hypertension. Right ventricular systolic pressure estimated to be elevated at 56 mmHg. Pulmonic Valve Pulmonic valve not well visualized, grossly normal. Mild pulmonic regurgitation. Pericardium No pericardial effusion. Great Vessels Normal size aortic root. Dilated inferior vena cava. CONCLUSIONS Normal size left ventricle. Mild concentric left ventricular hypertrophy. No obvious regional wall motion abnormalities. Normal left ventricular ejection fraction visually estimated at 65%. Restrictive filling pattern of the left ventricle for age (stage 3 diastolic dysfunction). Normal right ventricular size and function. Normal right atrial size. Elevated right atrial pressure. Mild left atrial dilatation. Mild mitral regurgitation. Mild aortic stenosis. Mild aortic regurgitation. Mild tricuspid regurgitation. Moderate pulmonary hypertension. Mild pulmonic regurgitation. Dilated inferior vena cava. Terrence Aponte M.D. (Electronically Signed) Final Date: 08 February 2017 18:12 Pertinent Lab Results: Laboratory Tests 02/09 06 Chemistry Sodium (137 - 145 mmol/L) 143 Potassium (3.5 - 5.1 mmol/L) 3.8 Chloride (98 - 107 mmol/L) 109 H Carbon Dioxide (22 - 30 mmol/L) 19 L Anion Gap (5 - 16) 14 BUN (7 - 17 mg/dL) 134 *H Creatinine (0.5 - 1.0 mg/dL) 5.9 *H Estimated GFR (>60 ml/min) 7 L BUN/Creatinine Ratio (7 - 25 %) 22.7 Calcium (8.4 - 10.2 mg/dL) 8.7 Phosphorus (2.5 - 4.5 mg/dL) 7.0 H Disposition Summary Disposition Principal Diagnosis: RAMO on CKD stage IV Sinus bradycardia Right external carotid stenosis Additional Diagnosis: Gout HTN DM type 2 Hyperlipidemia Secondary hyperparathyoidism Anemia (most likley anemia of chronic disease 2/2 CKD) Discharge Disposition: SNF Discharge Instructions General Discharge Information Code Status: Full Code Patient's Diet: Renal dialysis Patient's Activity: As tolerated. Follow-Up Instructions/Appts: Please follow up with your primary care physician in one week. Please follow up with your creel selector in one week. Please follow up with your hydraulic jack mechanic in one week. He is having a repeat BEP on Monday02/13/17. Please follow up with vascular surgeon within a month for further management of right external carotid artery stenosis. Medications at Discharge Discharge Medications: Stop taking the following medications: Amlodipine Besylate (Amlodipine Besylate) 10 MG TABLET ORAL DAILY Qty = 30 Carvedilol (Carvedilol) 12.5 MG TABLET ORAL TWICE DAILY Qty = 60 Calcitriol (Calcitriol) 0.5 MCG CAPSULE ORAL DAILY Qty = 30 Continue taking these medications: Febuxostat (Uloric) 40 MG TABLET 1 Tablet ORAL DAILY Qty = 30 Torsemide (Torsemide) 20 MG TABLET 1 Tablet ORAL DAILY Qty = 30 Aspirin (Aspirin*) 81 MG TAB.CHEW 1 Tablet ORAL DAILY Hydralazine HCl (Hydralazine HCl) 25 MG TABLET 1 Tablet ORAL TWICE DAILY Start taking the following new medications: Sevelamer Carbonate (Renvela) 800 MG TABLET 2 Tablet ORAL WITH MEALS Qty = 180 No Refills Rosuvastatin Calcium (Crestor) 10 MG TABLET 1 Tablet ORAL DAILY Qty = 30 No Refills Copies To: KAMERON BARBOUR,ANGEL Bautista; MEGAN BARBOUR,ESDRAS; SHEFALI BARBOUR,RODRIGUEZ; POOL BARBOUR, KRISTIN Attending MD Review Statement Documenting Attending: JOSÉ BARBOUR,VALENTÍN
--- NOTE | 2017-02-09 11:08 | PN- Att Addend ---
Attending Addendum Attending Brief Note atient seen and examined. Plan of care discussed with the medical team and the patient. Available lab work and radiology test reports were reviewed. Patient is feeling well but continues to have leg edema. She denies any chest pain or difficulty breathing. No recent fevers have been noted. Vital Signs Date Time Temp Pulse Resp B/P B/P Pulse O2 O2 Flow FiO2 Mean Ox Delivery Rate 02/09 09 56 122/62 02/09 0800 93 Room Air 02/09 0749 98.6 56 18 122/62 93 Room Air 02/08 2321 99.0 50 16 122/64 91 Room Air 02/08 2232 Room Air 02/08 2057 56 130/64 02/08 1447 97.8 55 18 130/62 95 Room Air 02/08 1149 Room Air Room Air Intake & Output 02/09 1600 02/09 0800 02/09 0000 Intake Total 250 240 Output Total Balance 250 240 Intake, Oral 250 240 Exam: General: Patient awake alert oriented without any distress CVS: S1 plus S2 without any murmur or gallops Chest: Few scattered crepitation without any wheeze. There is no respiratory distress. Abdomen: Soft nontender, bowel sound present, no guarding or rebound FLOOR FINISHER HELPER: Awake alert oriented without any focal neuro deficit and follows command appropriately Extremities: 2+ pitting bilateral edema no clubbing or cyanosis noted Laboratory Tests 02/09 605 Chemistry Sodium (137 - 145 mmol/L) 143 Potassium (3.5 - 5.1 mmol/L) 3.8 Chloride (98 - 107 mmol/L) 109 H Carbon Dioxide (22 - 30 mmol/L) 19 L Anion Gap (5 - 16) 14 BUN (7 - 17 mg/dL) 134 *H Creatinine (0.5 - 1.0 mg/dL) 5.9 *H Estimated GFR (>60 ml/min) 7 L BUN/Creatinine Ratio (7 - 25 %) 22.7 Calcium (8.4 - 10.2 mg/dL) 8.7 Phosphorus (2.5 - 4.5 mg/dL) 7.0 H Echo Cardigan report Normal size left ventricle. Mild concentric left ventricular hypertrophy. No obvious regional wall motion abnormalities. Normal left ventricular ejection fraction visually estimated at 65%. Restrictive filling pattern of the left ventricle for age (stage 3 diastolic dysfunction). Normal right ventricular size and function. Normal right atrial size. Elevated right atrial pressure. Mild left atrial dilatation. Mild mitral regurgitation. Mild aortic stenosis. Mild aortic regurgitation. Mild tricuspid regurgitation. Moderate pulmonary hypertension. Mild pulmonic regurgitation. Dilated inferior vena cava. Assessment * acute renal failure- with slight improvement in creatinine from yesterday * chronic renal failure * History of gout * Lower extremity edema likely secondary to Norvasc or venous stasis; no evidence of CHF * Hyperphosphatemia * History of A. fib flutter * Sinus Bradycardia * Diabetes type 2 * Obesity * History of hypertension * Carotid stenosis and atherosclerosis Plan * As per nephrology note no urgent indication for hemodialysis at this point. Her Cr has improved somewhat. Case discussed with nephrology. Dr. Stevens will talk to patient. Patient will follow-up with her impact hammer operator in [place]. patient could be discharged home today * Continue renvela * As per discussion with Dr. Stevens patient will restart torsemide 20 mg daily * Recheck creatinine next week; * Continue Crestor at home for carotid atherosclerosis; Patient was counseled for lifestyle management * Patient appears stable for discharge. Total time spent in preparation for discharge plan, patient education, and CMR preparation was 35 minutes.
--- NOTE | 2017-02-09 11:08 | PN- Nephrology ---
Assessment/Plan Assessment: 1. Acute on chronic kidney disease. She still denies uremic symptoms. No nausea no vomiting. She does not want to start dialysis. I think the patient would be best served by obtaining repeat blood work as an outpatient on Monday. In the interim she may go home or to rehabilitation. She should see Dr Reyes late next week 2. Increased lower extremity edema. Favor resuming the torsemide today. 3. History of a flutter/A. fib. Followed by Dr Lutz 4. Diabetes mellitus 5. Hypertension. Both #4 and #5. Contribute to her progressive kidney failure 6. Secondary hyperparathyroidism. Continue to hold the calcitriol since her phosphorus is still greater than 6. Suggestion: 1. Agree with plans for transfer to short-term rehabilitation or home. If Dr Reyes and the patient determines that she should start dialysis as an outpatient, our practice can be contacted to make those arrangements. In speaking with the patient, she feels that the dialysis unit in [place] would be closer to where she lives. Subjective Subjective: Patient denies nausea vomiting. She feels well. Her breathing is better. Objective Vital Signs and I&Os Vital Signs Date Time Temp Pulse Resp B/P B/P Pulse O2 O2 Flow FiO2 Mean Ox Delivery Rate 02/09 0905 56 122/62 02/09 0800 93 Room Air 02/09 0749 98.6 56 18 122/62 93 Room Air 02/08 2321 99.0 50 16 122/64 91 Room Air 02/08 2232 Room Air 02/08 2057 56 130/64 02/08 1447 97.8 55 18 130/62 95 Room Air 02/08 1149 Room Air Room Air Intake & Output 02/09 1600 02/09 0400 02/08 1600 02/08 0400 02/07 1600 02/07 0400 Intake Total 250 240 920 530 730 400 Output Total 1100 500 375 Balance 250 240 -180 530 230 25 Intake, IV 210 Intake, Oral 250 240 920 320 730 400 Number 2 1 Bowel Movements Output, Urine 1100 500 375 Patient 277 lb Weight Weight Chair scale Measurement Method Physical Exam: General Appearance: well developed/nourished, no apparent distress, alert, awake , anxious, obese Head: atraumatic, normal appearance Eyes: Bilateral: PERRL, EOMI, pale conjunctivae. Neck: normal inspection, supple, full range of motion, trachea mid line Respiratory: normal breath sounds, chest non-tender, lungs clear Cardiovascular: regular rate/rhythm, positive lower extremity edema, no rub Gastrointestinal: normal bowel sounds, soft, non-tender Extremities: Positive lower extremity edema bilaterally Neurologic/Psych: no motor/sensory deficits, awake, alert, oriented x 3, no gross neurologic deficits Skin: intact, warm/dry Current Medications: Current Medications Sig/Cole Start time Last Medication Dose Route Stop Time Status Admin Acetaminophen 325 MG Q6 PRN 02/05 1700 AC PO Aspirin 81 MG DAILY 02/06 1000 AC 02/09 PO 0905 Atorvastatin Calcium 40 MG 1700 02/07 1700 AC 02/08 PO 1711 Febuxostat 40 MG DAILY 02/06 1130 AC 02/09 PO 0905 Heparin Sodium 5,000 UNIT Q8 02/05 1648 AC (Porcine) SC Hydralazine HCl 25 MG BID 02/06 1153 AC 02/09 PO 0905 Sevelamer Carbonate 1,600 MG WM 02/08 1200 AC 02/09 PO 0835 Results Pertinent Lab Results: Laboratory Tests 02/09 02/08 0605 0654 Chemistry Sodium (137 - 145 mmol/L) 143 141 Potassium (3.5 - 5.1 mmol/L) 3.8 4.0 Chloride (98 - 107 mmol/L) 109 H 108 H Carbon Dioxide (22 - 30 mmol/L) 19 L 17 L Anion Gap (5 - 16) 14 16 BUN (7 - 17 mg/dL) 134 *H 130 *H Creatinine (0.5 - 1.0 mg/dL) 5.9 *H 6.3 *H Estimated GFR (>60 ml/min) 7 L 7 L BUN/Creatinine Ratio (7 - 25 %) 22.7 20.6 Calcium (8.4 - 10.2 mg/dL) 8.7 Phosphorus (2.5 - 4.5 mg/dL) 7.0 H 7.7 H Hematology CBC w Diff NO MAN DIFF REQ WBC (4.8 - 10.8 /CUMM) 9.5 RBC (4.20 - 5.40 /CUMM) 3.97 L Hgb (12.0 - 16.0 G/DL) 10.7 L Hct (37 - 47 %) 32.5 L MCV (81.0 - 99.0 FL) 81.9 MCH (27.0 - 31.0 PG) 26.9 L RDW (11.5 - 14.5 %) 17.1 H Plt Count (130 - 400 /CUMM) 138 MPV (7.4 - 10.4 FL) 9.0 Gran % (42.2 - 75.2 %) 75.8 H Lymphocytes % (20.5 - 51.1 %) 8.4 L Monocytes % (1.7 - 9.3 %) 10.7 H Eosinophils % (0 - 5 %) 4.4 Basophils % (0.0 - 2.0 %) 0.7 Absolute Granulocytes (1.4 - 6.5 /CUMM) 7.2 H Absolute Lymphocytes (1.2 - 3.4 /CUMM) 0.8 L Absolute Monocytes (0.10 - 0.60 /CUMM) 1.0 H Absolute Eosinophils (0.0 - 0.7 /CUMM) 0.4 Absolute Basophils (0.0 - 0.2 /CUMM) 0.1 PUBS MCHC (33.0 - 37.0 G/DL) 32.8 L 02/07 02/06 02/06 0650 2235 1425 Chemistry Sodium (137 - 145 mmol/L) 141 140 142 Potassium (3.5 - 5.1 mmol/L) 4.0 4.0 3.9 Chloride (98 - 107 mmol/L) 109 H 107 108 H Carbon Dioxide (22 - 30 mmol/L) 17 L 18 L 18 L Anion Gap (5 - 16) 15 15 15 BUN (7 - 17 mg/dL) 127 *H 126 *H 122 *H Creatinine (0.5 - 1.0 mg/dL) 6.3 *H 6.2 *H 6.2 *H Estimated GFR (>60 ml/min) 7 L 7 L 7 L BUN/Creatinine Ratio (7 - 25 %) 20.2 20.3 19.7 Phosphorus (2.5 - 4.5 mg/dL) 8.0 H Hematology CBC w Diff NO MAN DIFF REQ WBC (4.8 - 10.8 /CUMM) 8.9 RBC (4.20 - 5.40 /CUMM) 3.93 L Hgb (12.0 - 16.0 G/DL) 10.6 L Hct (37 - 47 %) 32.2 L MCV (81.0 - 99.0 FL) 81.9 MCH (27.0 - 31.0 PG) 26.9 L RDW (11.5 - 14.5 %) 17.5 H Plt Count (130 - 400 /CUMM) 136 MPV (7.4 - 10.4 FL) 8.8 Gran % (42.2 - 75.2 %) 71.6 Lymphocytes % (20.5 - 51.1 %) 11.4 L Monocytes % (1.7 - 9.3 %) 12.0 H Eosinophils % (0 - 5 %) 4.7 Basophils % (0.0 - 2.0 %) 0.3 Absolute Granulocytes (1.4 - 6.5 /CUMM) 6.4 Absolute Lymphocytes (1.2 - 3.4 /CUMM) 1.0 L Absolute Monocytes (0.10 - 0.60 /CUMM) 1.1 H Absolute Eosinophils (0.0 - 0.7 /CUMM) 0.4 Absolute Basophils (0.0 - 0.2 /CUMM) 0 PUBS MCHC (33.0 - 37.0 G/DL) 32.8 L Serology Hepatitis A IgM Ab (NONREACTIVE) NONREACTIVE Hep Bs Antigen (NONREACTIVE) NONREACTIVE Hep B Core IgM Ab Conf (NONREACTIVE) NONREACTIVE Hepatitis C Antibody (NONREACTIVE) NONREACTIVE
[2017-02-09] MEDS ORDERED: RENVELA800 M1 PO (13:17)
[2017-02-09 15:02] VITALS: BP 122/62
== END 2017-02-09 16:00 | DRG 684 ==
LOC: ERH 12:44 → ERHI 17:02 → 1NO 17:02 → ENRESERV 17:35 → ENTRNSPT 17:46 → EDTRNSPTSTS 17:52 → 1NO 17:55 → CMPTRNSPT 18:52 → 1NO 02-06 08:14 → ENPENDDIS 02-09 13:57 → 1NO 02-09 16:00
PROVIDERS: Internal Medicine Interventional Cardiology; Physician Assistant Medical; Student in an Organized Health Care Education/Training Program; ADMIT Internal Medicine
DX: N17.9 Acute kidney failure, unspecified (principal); E11.22 Type 2 diabetes mellitus with diabetic chronic kidney disease; I48.0 Paroxysmal atrial fibrillation; R00.1 Bradycardia, unspecified; I65.21 Occlusion and stenosis of right carotid artery; N18.4 Chronic kidney disease, stage 4 (severe); E66.01 Morbid (severe) obesity due to excess calories; D63.1 Anemia in chronic kidney disease; E83.39 Other disorders of phosphorus metabolism; I12.9 Hypertensive chronic kidney disease with stage 1 through stage 4 chronic kidney disease, or unspecified chronic kidney disease; M10.9 Gout, unspecified; Z68.36 Body mass index [BMI] 36.0-36.9, adult; N25.81 Secondary hyperparathyroidism of renal origin; I44.0 Atrioventricular block, first degree; E78.5 Hyperlipidemia, unspecified; I87.2 Venous insufficiency (chronic) (peripheral)
CPT/HCPCS: 1NP; 36415; 76775; 81001; 82436; 87086; 93005; 93010; 93306; 93970; 97110-GO; 97116-GO; 97161-GP; 97530-GO; J1644; J3490

== ENCOUNTER 2017-08-23 16:17 | Inpatient (IN) | payer OTHER, MEDICARE ==
[~2017-08-23] VITALS: Ht 175.3 cm; Wt 96.2 kg
[~2017-08-23 16:17] MED LIST changes: +AMLODIPINE BESY10 M1 PO; +ASPIRIN81 M4 PO; +CALCITRIOL0.5 MC1 PO; +CARVEDILOL12.5 M1 PO; +CRESTOR10 M1 PO; +HYDRALAZINE HCL25 M1 PO; +RENVELA800 M1 PO; +TORSEMIDE20 M1 PO; +ULORIC40 M1 PO
--- NOTE | 2017-08-23 16:42 | ED CARDIAC/CP/PALPITATIONS ---
History of Present Illness General Chief Complaint: General Adult Stated Complaint: SENT BY YENNY FOR EVAL, ELEVATED HR Source: patient Exam Limitations: no limitations Vital Signs & Intake/Output Vital Signs & Intake/Output Vital Signs Date Time Temp Pulse Resp B/P B/P Pulse O2 O2 Flow FiO2 Mean Ox Delivery Rate 08/23 1756 140 189/84 08/23 1637 96.8 124 18 170/106 96 Room Air Allergies Coded Allergies: sitagliptin (From THANG) (Severe, THROAT CLOSURE 02/05/17) Reconcile Medications Aspirin (Aspirin*) 81 MG TAB.CHEW 1 TAB PO DAILY HEART HEALTH (Reported) Calcitriol 0.25 MCG CAPSULE 1 CAP PO DAILY SUPPLEMENT (Reported) Febuxostat (Uloric) 40 MG TABLET 1 TAB PO DAILY UNKNOWN (Reported) Hydralazine HCl 25 MG TABLET 1 TAB PO DAILY BP (Reported) Rosuvastatin Calcium (Crestor) 10 MG TABLET 1 TAB PO DAILY HYPERLIPIDEMIA Sevelamer Carbonate (Renvela) 800 MG TABLET 2 TAB PO WM CKD Torsemide 20 MG TABLET 1 TAB PO DAILY WATER RETENTION (Reported) Triage Note: PT TO ER SENT IN BY DR. CHANG FOR ELEVATED HR. EKG COMPLETE UPON ARRIVAL - RAPID AFIB. PT DENIES C/P OR SOB, "I FEEL FINE". HX OF SAME WITH ABLATION. Triage Nurses Notes Reviewed? yes Onset: UNKNOWN Duration: UNKNWON Activities at Onset: none Associated Symptoms: GENERALIZED WEAKNESS HPI: 72 year old female history of paroxysmal afib who presents to the ER for chief complaint of high heart rate in Jay Chang MD's office. The patient has a history of paroxysmal A. fib status post cardioversion by a functional manager and normal 2 years ago. She is to be on medications but states that she has had not had the issue in 2 years. Today she was following Jay Chang MD for the first time as she was changing her renal doctor and he found her to be with a high heart rate. She denies any chest pain, shortness of breath, palpitations. She does not know when this current episode started. Patient states that after cardioversion 2 years ago she went into A. fib again and was going to have second cardioversion but when she went back and she was back in sinus rhythm. she was in A. fib. The patient is also in the process of changing her functional manager but has not seen [place] yet. She had a consultation with Dr. Valle in January while she was hospitalized. Past History Travel History Traveled to [place] past 21 day No Medical History Any Pertinent Medical History? see below for history Neurological: NONE Cardiovascular: AFIB (refuses/ not started on antico), aflutter, hypertension Hepatic: NONE Renal: CKD biopsy-proven diabetic/hypertensive nephropathy Musculoskeletal: gout Endocrine: diabetes, she reports that her diabetes has been referred for roughly 10 years. She denies any retinopathy. Blood Disorders: anemia History of MRSA: No History of VRE: No History of CDIFF: No Surgical History Surgical History: ELECTRICAL CARDIOVERSION 2 YEARS AGO (DR MEEHAN) PRIDDY Psychosocial History Who do you live with Patient/Self What is your primary language Bulgarian Tobacco Use: Never used Family History Hx Contributory? No Review of Systems Review of Systems Constitutional: Reports: weakness. Denies: chills, fever, malaise. EENTM: Reports: no symptoms. Respiratory: Denies: cough, short of breath, sputum production. Cardiovascular: Reports: peripheral edema. Denies: chest pain, palpitations (CHRONIC). GI: Denies: abdominal pain. Genitourinary: Reports: no symptoms. Musculoskeletal: Reports: no symptoms. Skin: Reports: no symptoms. Neurological/Psychological: Reports: no symptoms. Hematologic/Endocrine: Denies: bruising, bleeding, polyuria, polydipsia. Immunologic/Allergic: Denies: splenectomy, HIV/AIDS. All Other Systems: Reviewed and Negative Physical Exam Physical Exam General Appearance: well developed/nourished, alert, awake, anxious, mild distress, moderate distress Head: atraumatic, normal appearance Eyes: Bilateral: normal appearance, PERRL, EOMI. Ears, Nose, Throat: normal pharynx, normal ENT inspection, hearing grossly normal Neck: normal inspection, supple, full range of motion Respiratory: normal breath sounds, chest non-tender, no respiratory distress Cardiovascular: tachycardia, irregularly irregular Peripheral Pulses: 2+ radial (R), 2+ radial (L) Gastrointestinal: normal bowel sounds, soft, non-tender Rectal: BROWN OB NEG Back: normal inspection, normal range of motion Extremities: pedal edema (2+ BILATERAL) Neurologic/Psych: no motor/sensory deficits, awake, alert, oriented x 3 Skin: intact, normal color, warm/dry Core Measures ACS in differential dx? Yes CVA/TIA Diagnosis No Sepsis Present: No Sepsis Focused Exam Completed? No Progress Differential Diagnosis: atrial fibrillation, CHF/pulm edema, pulmonary embolism Plan of Care: Orders Procedure Date/time Status Heart Healthy Diet 08/24 B Active Patient Data 08/23 1850 Active ED Holding Orders 08/23 1846 Active Admit to inpatient 08/23 1846 Active Vital Signs 08/23 1846 Active Code Status 08/23 1846 Active THYROID STIMULATING HORMONE 08/23 1644 Complete TROPONIN LEVEL 08/23 1644 Complete PARTIAL THROMBOPLASTIN TIME 08/23 1644 Complete PROTHROMBIN TIME 08/23 1644 Complete FREE T4 08/23 1644 Complete COMPREHENSIVE METABOLIC PANEL 08/23 1644 Complete CBC WITHOUT DIFFERENTIAL 08/23 1644 Complete EKG 08/23 1619 Active Current Medications Sig/Cole Start time Last Medication Dose Stop Time Status Admin Diltiazem HCl 125 MG Q12H 08/23 1700 UNVr 08/23 (Cardizem DRIP) 1811 Sodium Chloride 100 ML (Normal Saline 0.9%) Heparin Sodium 25,000 UNIT Q24H 08/23 1700 UNVr 08/23 (Porcine) 1759 (Heparin) Sodium Chloride 500 ML Laboratory Tests 08/23/17 1733: Anion Gap 20 H, Estimated GFR 14 L, BUN/Creatinine Ratio 15.0, Glucose 120 H, Calcium 10.3 H, Total Bilirubin 1.0, AST 27, ALT 29, Alkaline Phosphatase 468 H, Troponin I 0.02, Total Protein 8.2, Albumin 4.5, Globulin 3.7, Albumin/ Globulin Ratio 1.2, TSH 1.180, Free T4 2.48 H, PT 11.7, INR 1.12, APTT 34, CBC w Diff NO MAN DIFF REQ, RBC 4.47, MCV 84.2, MCH 27.6, RDW 15.9 H, MPV 9.3, Gran % 66.0, Lymphocytes % 21.0, Monocytes % 8.2, Eosinophils % 3.6, Basophils % 1.2, Absolute Granulocytes 8.0 H, Absolute Lymphocytes 2.6, Absolute Monocytes 1.0 H, Absolute Eosinophils 0.4, Absolute Basophils 0.2, PUBS MCHC 32.8 L Diagnostic Imaging: Viewed by Me: Radiology Read. Discussed w/RAD: Radiology Read. CXR Impression: PATIENT: GILL CUETO PRESENT AGE: 72 PATIENT ACCOUNT NO: [id number] : 47 LOCATION: [facility] ORDERING PHYSICIAN: Supriya Iqbal MD SERVICE DATE: 08/23/17 EXAM TYPE: RAD - XRY-PORTABLE CHEST XRAY EXAMINATION: XR PORTABLE CHEST CLINICAL INFORMATION: Rule out CHF. COMPARISON: Chest radiograph 02/05/2017. TECHNIQUE: Portable frontal view of the chest was obtained. FINDINGS: There are low lung volumes. There is central vascular congestion. There is a right-sided pleural effusion and bibasilar atelectasis. A right basilar consolidation cannot be excluded. The upper lungs are clear. There is no pneumothorax. The cardiac silhouette is enlarged but appears similar compared to prior. The thoracic aorta is calcified. IMPRESSION: 1. Cardiomegaly with central vascular congestion and right pleural effusion. 2. Bibasilar atelectasis with right basilar consolidation not excluded. DICTATED BY: Suzie Wade MD DATE/TIME DICTATED:08/23/171704 ROAD SUPERVISOR OF ENGINES: HANNAH DATE/TIME TRANSCRIBED:08/23/171704 CONFIDENTIAL, DO NOT COPY WITHOUT APPROPRIATE AUTHORIZATION. <Electronically signed in Other Vendor System> SIGNED BY: Suzie Wade MD 08/23/17 1711 Initial ED EKG: AFIB (RVR, PVC'S) Rhythm Strip: atrial fibrillation (RVR) Departure Departure Disposition: STILL A PATIENT Condition: Stable Clinical Impression Primary Impression: Rapid atrial fibrillation Referrals: Cesia Sigala MD (PCP/Family) Departure Forms: Customer Survey General Discharge Information Admission Note Documentation of Exam: Documentation of any treatments & extenuating circumstances including Concerns Regarding Discharge (functional status, medication knowledge or non-compliance, living conditions, etc.) that warrant an admission rather than observation: [ TELE MONITOR, SERIAL EKG/TROPONIN, IV CARDIZEM DRIP, IV HEPARIN DRIP, CARDIOLOGY CONSULTATION DR VALLE (ALREADY SEEN IN ED), ECHOCARDIOGRAM] Critical Care Note Critical Care Note Critical Care Time: 30-74 min
--- NOTE | 2017-08-23 17:11 | RADIOLOGY REPORT ---
EXAMINATION: XR PORTABLE CHEST CLINICAL INFORMATION: Rule out CHF. COMPARISON: Chest radiograph 02/05/2017. TECHNIQUE: Portable frontal view of the chest was obtained. FINDINGS: There are low lung volumes. There is central vascular congestion. There is a right-sided pleural effusion and bibasilar atelectasis. A right basilar consolidation cannot be excluded. The upper lungs are clear. There is no pneumothorax. The cardiac silhouette is enlarged but appears similar compared to prior. The thoracic aorta is calcified. IMPRESSION: 1. Cardiomegaly with central vascular congestion and right pleural effusion. 2. Bibasilar atelectasis with right basilar consolidation not excluded.
[2017-08-23] MEDS ORDERED: CALCITRIOL0.25 MC1 PO (17:59)
[2017-08-23 18:03] LABS: ABSOLUTE BASOPHIL COUNT 0.2 /CUMM (0.0-0.2); ABSOLUTE EOSINOPHIL COUNT 0.4 /CUMM (0.0-0.7); ABSOLUTE LYMPH COUNT 2.6 /CUMM (1.2-3.4); BASOPHIL % 1.2 % (0.0-2.0); EOSINOPHIL % 3.6 % (0-5); HEMATOCRIT 37.6 % (37-47); MEAN CORPUSCULAR HGB 27.6 PG (27.0-31.0); MEAN CORPUSCULAR HGB CONC 32.8 G/DL (33.0-37.0); MEAN CORPUSCULAR VOLUME 84.2 FL (81.0-99.0); MEAN PLATELET VOLUME 9.3 FL (7.4-10.4); PLATELET COUNT 260 /CUMM (130-400); RBC DISTRIBUTION WIDTH 15.9 % (11.5-14.5); RED BLOOD CELL CT 4.47 /CUMM (4.20-5.40); WHITE BLOOD CELL COUNT 12.2 /CUMM (4.8-10.8)
[2017-08-23 18:10] LABS: PT 11.7 SEC (9.4-12.5); PTT 34 SEC (25-37)
--- NOTE | 2017-08-23 18:41 | Cons- Cardiology ---
General Information and HPI Consulting Request Date of Consult: 08/23/17 Requested By: Darcie CABELLO INDRANI Reason for Consult: Atrial fibrillation with a rapid ventricular response. Source of Information: patient, old records Exam Limitations: poor historian History of Present Illness: Mrs. Leslie Yao is a 72-year-old female with history of gout, dyslipidemia, hypertension, diabetes mellitus, chronic kidney disease s/p right upper extremity AV fistula 06/2016 without use necessity, chronic anemia on an erythropoietin stimulating agent, and paroxysmal atrial fibrillation s/p electrical cardioversion following a transesophageal echocardiogram ~2015 with recurrence and transient antiarrhythmic therapy which led to cardioversion ~2016 who was in her usual state of health and being seen by nephrology (Jay Chang M.D.) she was discovered to be in a rapid irregularly irregular rhythm and was sent to the ED for an electrocardiogram which confirmed atrial fibrillation with rapid ventricular response. Mrs. Yao denies any palpitations, chest discomfort, shortness of breath, etc. She was last hospitalized here (02/04-02/09/2017) with complaints of weakness, lethargy, and bilateral lower extremity edema, ultimately felt to be secondary to therapy with a dihydropyridine calcium channel antagonist (amlodipine). Allergies/Medications Allergies: Coded Allergies: sitagliptin (From [facility]) (Severe, THROAT CLOSURE 02/05/17) Home Med List: Aspirin (Aspirin*) 81 MG TAB.CHEW 1 TAB PO DAILY HEART HEALTH (Reported) Calcitriol 0.25 MCG CAPSULE 1 CAP PO DAILY SUPPLEMENT (Reported) Febuxostat (Uloric) 40 MG TABLET 1 TAB PO DAILY UNKNOWN (Reported) Hydralazine HCl 25 MG TABLET 1 TAB PO DAILY BP (Reported) Rosuvastatin Calcium (Crestor) 10 MG TABLET 1 TAB PO DAILY HYPERLIPIDEMIA Sevelamer Carbonate (Renvela) 800 MG TABLET 2 TAB PO WM CKD Torsemide 20 MG TABLET 1 TAB PO DAILY WATER RETENTION (Reported) Current Medications: Current Medications Sig/Cole Start time Last Medication Dose Route Stop Time Status Admin Diltiazem HCl 0 .STK-MED ONE 08/23 1751 DC .ROUTE Diltiazem HCl 10 MG ONCE ONE 08/23 1699 DC 08/23 IV PUSH 08/23 1701 1756 Diltiazem HCl 125 MG Q12H 08/23 1699 UNVr 08/23 Sodium Chloride 100 ML IV 1811 Heparin Sodium 0 .STK-MED ONE 08/23 1752 DC (Porcine) .ROUTE Heparin Sodium 5,000 UNIT ONCE ONE 08/23 170 DC 08/23 (Porcine) IV 08/23 1701 1756 Heparin Sodium 25,000 UNIT Q24H 08/23 170 UNVr 08/23 (Porcine) IV 1759 Sodium Chloride 500 ML Review of Systems Review of Systems: A 14 point system review was obtained and was noncontributory, other than as above. Past History Travel History Traveled to [place] past 21 day No Medical History Neurological: NONE Cardiovascular: AFIB (refuses/ not started on antico), aflutter, hypertension Hepatic: NONE Renal: CKD biopsy-proven diabetic/hypertensive nephropathy Musculoskeletal: gout Endocrine: diabetes, she reports that her diabetes has been referred for roughly 10 years. She denies any retinopathy. Blood Disorders: anemia Surgical History Surgical History: non-contributory, 2 YEARS AGO (DR MEEHAN) NIANTIC Exam & Diagnostic Data Vital Signs and I&O Vital Signs Date Time Temp Pulse Resp B/P B/P Pulse O2 O2 Flow FiO2 Mean Ox Delivery Rate 08/23 1755 140 189/84 08/23 1637 96.8 124 18 170/106 96 Room Air Physical Exam: Well-developed, overweight elderly female in no acute distress. Vital signs: See above. HEENT: Normocephalic, atraumatic, EOMI, slightly dry mucous membranes. Neck: No JVD, right carotid bruit. Lungs: Decreased breath sounds otherwise clear. Heart: S1, S2 with soft (grade 1-2/6) systolic murmur. Abdomen: Soft, nontender, positive bowel sounds. Extremities: 2+ bilateral lower extremity edema. Assessment/Plan Assessment/Plan 72-[id number]-f w/ hx gout, HLD, HTN, DM, CKD s/p RUE AV fistula 06/2016 w/o use necessity, ch anemia on RITO, & PAF s/p electrical CV following a CARI ~2015 w/ recurrence and successful antiarrhythmic Rx w/ chemical CV ~2017 who was in her usual state of health and being seen by nephrology (Jay Chang M.D.) when she was discovered to be in a rapid irregularly irregular rhythm and was sent to the ED for an ECG confirmed AF w/ RVR. Fortunately, she is asymptomatic despite a ventricular response rate in the ~140 bpm range. She is not on chronic anticoagulation as per her wishes, despite an elevated [id number] Score of 5 (female, age 65-74, HTN, DM, vasc dz [carotid]). Recommendations: * Admit telemetry, follow-up troponins, follow-up ECG. * Start IV diltiazem drip after IV bolus to help control the ventricular response. * Recommend and start full anticoagulation with IV heparin and transition to oral anticoagulation given her significantly elevated [id number] Score. * Reasonable to repeat echocardiogram to reassess LV/RV function, occult valvular disease, atrial size, PA pressure, etc. * DVT prophylaxis being addressed by anticoagulation. Consult Acknowledgment - Thank you for your consult request.
--- NOTE | 2017-08-23 19:37 | History & Physical ---
Peterson Velasquez 08/23/171935: General Information and HPI MD Statement: I have seen and personally examined GILL CUETO and documented this H&P. The patient is a 72 year old F who presented with a patient stated chief complaint of []. Source of Information: patient, old records Exam Limitations: poor historian History of Present Illness: Mrs. Gill Cueto is a 72-year-old female with history of gout, dyslipidemia, hypertension, diabetes mellitus, chronic kidney disease s/p right upper extremity AV fistula 06/2016 without use necessity, chronic anemia on an erythropoietin stimulating agent, and paroxysmal atrial fibrillation s/p electrical cardioversion following a transesophageal echocardiogram ~2015 with recurrence and transient antiarrhythmic therapy which led to cardioversion ~2016 who was in her usual state of health and being seen by nephrology (Jay Chang M.D.) Mrs. Cueto denies any palpitations, chest discomfort, shortness of breath, etc. She was last hospitalized here (02/04-02/09/2017) with complaints of weakness, lethargy, and bilateral lower extremity edema, ultimately felt to be secondary to therapy with a dihydropyridine calcium channel antagonist (amlodipine). Allergies/Medications Allergies: Coded Allergies: sitagliptin (From [employer]) (Severe, THROAT CLOSURE 02/05/17) Home Med list Aspirin (Aspirin*) 81 MG TAB.CHEW 1 TAB PO DAILY HEART HEALTH (Reported) Calcitriol 0.25 MCG CAPSULE 1 CAP PO DAILY SUPPLEMENT (Reported) Febuxostat (Uloric) 40 MG TABLET 1 TAB PO DAILY UNKNOWN (Reported) Hydralazine HCl 25 MG TABLET 1 TAB PO DAILY BP (Reported) Rosuvastatin Calcium (Crestor) 10 MG TABLET 1 TAB PO DAILY HYPERLIPIDEMIA Sevelamer Carbonate (Renvela) 800 MG TABLET 2 TAB PO WM CKD Torsemide 20 MG TABLET 1 TAB PO DAILY WATER RETENTION (Reported) Past History Travel History Traveled to [place] past 21 day No Medical History Neurological: NONE Cardiovascular: AFIB (refuses/ not started on antico), aflutter, hypertension Hepatic: NONE Renal: CKD biopsy-proven diabetic/hypertensive nephropathy Musculoskeletal: gout Endocrine: diabetes, she reports that her diabetes has been referred for roughly 10 years. She denies any retinopathy. Blood Disorders: anemia History of MRSA: No History of VRE: No History of CDIFF: No Surgical History Surgical History: non-contributory, 2 YEARS AGO (DR MEEHAN) BELLMAWR Core Measures/Misc (04/30) Cerebrovascular Accident CVA/TIA Diagnosis: Venecia Bernardo MD, [facility] 08/23/172056: Attending MD Review Statement Attending Statement Attending MD Statement: examined this patient, discuss w/resident/PA/CREAM DUMPER, agreed w/resident/PA/CREAM DUMPER, reviewed images, amended to note
--- NOTE | 2017-08-23 20:57 | Admission Certification ---
Admission Certification Certification Statement - As attending physician, I certify that at the time of - admission, based on clinical presentation, severity of - symptoms, need for further diagnostic testing and - therapeutic interventions, and risk of adverse outcomes - without in-hospital treatment, in my clinical assessment, - this patient requires an acute hospital stay for a minimum - of two nights or longer. I have also considered psychsocial - factors such as support system, advanced age, financial - issues, cognitive issues, and failed out-patient treatments, - past re-admission history, safety of patient, and lack of - compliance as applicable. Specific rationale supporting this admission is: Atrial fibrillation with rapid ventricular response.
--- NOTE | 2017-08-23 23:24 | History & Physical ---
Purvi BARBOUR,Claudia 08/23/17 2323: General Information and HPI MD Statement: I have seen and personally examined GILL CUETO and documented this H&P. The patient is a 72 year old F who presented with a patient stated chief complaint of [sent in by Jay Chang MD for elevated heart rate]. 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 Patient states that she was recently referred to Jay Chang MD by Dr. Barnes who she saw on July 22 as she wanted a physician closer to her place of residence in [place]. States that today she went in to see Jay Chang MD and was sent in due to elevated heart rate. Patient states that she has been asymptomatic and denies chest pain, palpitations, shortness of breath, dizziness , lightheadedness. Patient states that she was stressed and quite upset the day prior to this admission. States that her falls tooth fell out and patient was unable to see her dentist. Patient states that she has been feeling progressively tired towards the end of the day. Patient denies any orthopnea, paroxysmal nocturnal dyspnea. Denies any headaches or lethargy during the day. Patient states that she was on Eliquis approximately one year ago however stopped it herself as she was concerned of bleeding. Stated that she was recently discharged from the nursing rehabilitation facility at the end of April 2017 and at that time had cut her foot and had profuse bleeding. Patient states that she has been worked up in the past for bleeding disorders. Allergies/Medications Allergies: Coded Allergies: sitagliptin (From [employer]) (Severe, THROAT CLOSURE 02/05/17) Home Med list Aspirin (Aspirin*) 81 MG TAB.CHEW 1 TAB PO DAILY HEART HEALTH (Reported) Calcitriol 0.25 MCG CAPSULE 1 CAP PO DAILY SUPPLEMENT (Reported) Febuxostat (Uloric) 40 MG TABLET 1 TAB PO DAILY UNKNOWN (Reported) Hydralazine HCl 25 MG TABLET 1 TAB PO DAILY BP (Reported) Rosuvastatin Calcium (Crestor) 10 MG TABLET 1 TAB PO DAILY HYPERLIPIDEMIA Sevelamer Carbonate (Renvela) 800 MG TABLET 2 TAB PO WM CKD Torsemide 20 MG TABLET 1 TAB PO DAILY WATER RETENTION (Reported) Past History Travel History Traveled to [place] past 21 day No Medical History Neurological: NONE EENT: NONE Cardiovascular: AFIB (refuses/ not started on antico), aflutter, hypertension Respiratory: NONE Gastrointestinal: NONE Hepatic: NONE Renal: CKD biopsy-proven diabetic/hypertensive nephropathy Musculoskeletal: gout Psychiatric: NONE Endocrine: diabetes, she reports that her diabetes has been referred for roughly 10 years. She denies any retinopathy. Blood Disorders: anemia Cancer(s): NONE TMD TEACHER/Reproductive: NONE History of MRSA: No History of VRE: No History of CDIFF: No Isolation History: Standard Surgical History Surgical History: non-contributory, 2 YEARS AGO (DR LUTZ) [place] Past Family/Social History Psychosocial History Where do you live? Home Smoking Status: Unknown If Ever Smoked Review of Systems Review of Systems Constitutional: Reports: see HPI. Cardiovascular: Reports: no symptoms. Respiratory: Reports: no symptoms. GI: Reports: no symptoms. Genitourinary: Reports: no symptoms. Musculoskeletal: Reports: no symptoms. Skin: Reports: no symptoms. Neurological/Psychological: Reports: anxiety. Hematologic/Endocrine: Reports: bleeding. Immunologic/Allergic: Reports: no symptoms. Exam & Diagnostic Data Last 24 Hrs of Vital Signs/I&O Vital Signs Date Time Temp Pulse Resp B/P B/P Pulse O2 O2 Flow FiO2 Mean Ox Delivery Rate 08/238 97.6 79 24 142/60 98 08/23 222 124 162/105 08/23 1955 Room Air 08/23 1952 124 162/105 08/23 175 140 189/84 08/23 175 140 189/84 08/23 1717 97.4 136 20 178/98 98 Room Air 08/23 1637 96.8 124 18 170/106 96 Room Air Intake & Output 08/24 0800 08/24 0000 08/23 1600 Intake Total Output Total Balance Output, Urine Patient 212 lb Weight Weight Estimated Measurement Method Physical Exam General Appearance Alert, Oriented X3, Cooperative, No Acute Distress HEENT Atraumatic, PERRLA, EOMI, Mucous Membr. 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 no signs of inflammation or infection Vascular Normal Pulses, Pulses Symmetrical Last 24 Hrs of Labs/Rayshawn: Laboratory Tests 08/24/17 0016: Sodium Cancelled, Potassium Cancelled, Chloride Cancelled, Carbon Dioxide Cancelled, Anion Gap Cancelled, BUN Cancelled, Creatinine Cancelled, BUN/ Creatinine Ratio Cancelled 08/24/17 0000: Anion Gap 15, Estimated GFR 14 L, BUN/Creatinine Ratio 15.6, Troponin I 0.02, APTT 64 H 08/23/17 1733: Anion Gap 20 H, Estimated GFR 14 L, BUN/Creatinine Ratio 15.0, Glucose 120 H, Calcium 10.3 H, Total Bilirubin 1.0, GGT 192 H, AST 27, ALT 29, Alkaline Phosphatase 468 H, Troponin I 0.02, Total Protein 8.2, Albumin 4.5, Globulin 3.7, Albumin/Globulin Ratio 1.2, TSH 1.180, Free T4 2.48 H, PT 11.7, INR 1.12, APTT 34, CBC w Diff NO MAN DIFF REQ, RBC 4.47, MCV 84.2, MCH 27.6, RDW 15.9 H, MPV 9.3, Gran % 66.0, Lymphocytes % 21.0, Monocytes % 8.2, Eosinophils % 3.6, Basophils % 1.2, Absolute Granulocytes 8.0 H, Absolute Lymphocytes 2.6, Absolute Monocytes 1.0 H, Absolute Eosinophils 0.4, Absolute Basophils 0.2, PUBS MCHC 32.8 L Diagnostic Data EKG Results EKG showing atrial fibrillation with a rate of 121, narrow QRS, PVCs, no ST or T -wave changes, QTc of 454 CXR Results Cardiomegaly with central vascular congestion and right pleural effusion, bibasilar atelectasis with right basilar consolidation Assessment/Plan Assessment: Patient is a 72-year-old female with past medical history significant for paroxysmal atrial fibrillation with previous cardioversions and currently not on anticoagulation per patient's decision due to her concern of bleeding, presents this admission with atrial fibrillation with RVR after being seen by her principal embedded software engineer. Patient has a [id number] score of 6 points giving her a 9.7% risk of stroke and at 13.6% risk of stroke or TIA or systemic embolism. The importance of anticoagulation therapy in the setting of atrial fibrillation was discussed at length with the patient, the benefits and risks were discussed. 1. Atrial fibrillation with RVR Monitor on telemetry Serial EKG and troponins to rule out ACS Echo in a.m. Cardiology on board Anticoagulation with IV heparin Control rate with diltiazem drip Readdress the importance of anticoagulation with the patient in the morning and transitioned to a NOAC prior to discharge 2. Hypertension Continue hydralazine 25 mg twice a day If blood pressure remains elevated changed to 3 times a day 3. Diabetes currently diet controlled Place on insulin sliding scale and Accu-Cheks 4. History of CAD with significant right external carotid artery stenosis from previous admission, has not followed up with vascular surgery outpatient Continue aspirin 81 mg daily Referred to vascular surgery for outpatient management DVT prophylaxis: Currently on IV heparin Diet: Diabetic diet with salt restriction Code: Full code As Ranked By This Provider Problem List: 1. Rapid atrial fibrillation Core Measures/Misc (04/30) Acute Coronary Syndrome ACS Diagnosis: No Congestive Heart Failure Congestive Heart Failure Diagnosis No Cerebrovascular Accident CVA/TIA Diagnosis: No VTE (View Protocol) VTE Risk Factors Age>40 No Mechanical VTE Prophylaxis d/t N/A MechProphylax Ordered No VTE Pharm Prophylaxis d/t NA PharmProphylax ordered Sepsis (View protocol) Sepsis Present: No Az BARBOUR, Sitalaks 08/23/17 2331: Attending MD Review Statement Attending Statement Attending MD Statement: examined this patient, discuss w/resident/PA/EMISSIONS TESTING AND REPAIR TECHNICIAN, agreed w/resident/PA/EMISSIONS TESTING AND REPAIR TECHNICIAN, reviewed images, amended to note Attending Assessment/Plan: 72 yo F with h/o HTN, P. Afib/ flutter s/p cardioversion not on AC (per patient wishes), T2DM c/b nephropathy, CKD stage 5 s/p RUE AV fistula (but not on dialysis yet), secondary hyperparathyroidism, gout, chronic anemia, was last admitted to [facility] (January 2017) for RAMO on CKD 2/2 torsemide and LE edema due to CCB use. She was discharged to short term rehab at [facility] where she reports being for 4 months. Patient used to follow with doctors at [place], especially Solid Surface Fabricator and Insole Beveler. She has moved to [place] and is looking to set up care here. She was following with Dr. Nato Reyes (Nephro) --> later Dr. Jose Horton who then referred her to Dr. Chand and Dr. Chang. She was at Dr. Chang's office today for a routine visit when she was noted to have a rapid heart rate and was sent in to the ER. Patient reports feeling weak, fatigued especially on exertion for the past 1 week or so. She denies chest pain , palpitations, dyspnea or lightheadedness. Vitals: afebrile, HR 130-140's, BP 189/84 --> 162/105, sats 98% RA. Exam: AAO, elderly lady in no acute distress, MM dry, Neck no JVD, right carotid bruit subtle, Chest: reduced air entry at bases, otherwise clear, Heart S1S2 irregularly irregular, systolic murmur+, Abd soft, NT, LE: 1+ edema. Right great toe ecchymosis/ bruise noted to the base of the nail. Right upper extremity AV fistula+. Rectal exam: guaiac negative done in ER. Labs: WBC 12.1, INR 1.12, Na 148, AG 20, BUN 48, creat 3.2 (baseline 2.9 3.4), bicarb 25, glucose 120, calcium 10.3, Alk phos 468, trop 0.02, TSH, 1.180, Free T4 2.48. EKG: Afib with RVR. CXR: cardiomegaly with central vascular congestion and right pleural effusion. Bibasilar atelectasis with right basilar consolidation not excluded. Echo (2017): EF 65%, restrictive filling pattern, stage 3 diastolic dysfunction, moderate pulmonary hypertension. Assessment and plan: 1. Atrial fibrillation with rapid ventricular response 2. Uncontrolled hypertension 3. CKD stage 5 stable 4. Type 2 diabetes (A1c 6.9 Apr 2017) not on insulin or OHA anymore 5. Secondary hyperparathyroidism 6. Right external carotid artery occlusive plaque with nonhemodynamically significant stenosis of both ICA 7. Chronic anemia of CKD, was on epogen 8. Elevated Alk phos Discussed in detail about anticoagulation in the setting of afib (given high [id number] score), patient is agreeable for AC but reports having an easy bruising and bleeding tendency. She recently dropped a knife onto her right great toe and states it took a while to stop bleeding. Platelets are normal. - Admit to Telemetry - Monitor for arrhythmias - Continue Cardizem drip to titrate for HR < 110 - Continue IV heparin per PTT protocol - Monitor platelet counts and H/H while on heparin - Check bleeding and clotting time - Thyroid functions are normal - Serial EKG and troponin to rule out ACS - Obtain Echo to assess LV function, pulmonary pressures - Cardio consult (Dr. Aponte seen patient) - Patient wishes to follow up with Dr. Aponte as outpatient. - Plan to transition to NOAC in AM - Gentle hydration - Continue hydralazine for BP control can increase to TID if need be - Check HbA1c, monitor accucheks, keep on Novolog SS for sugars > 200 only DVT ppx IV heparin. Full code. EvaPeterson 08/23/17 2341: General Information and HPI MD Statement: I have seen and personally examined GILL CUETO and documented this H&P. The patient is a 72 year old F who presented with a patient stated chief complaint of []. Resident Review Statement Resident Statement: examined this patient, discussed with internet sales director, agreed with internet sales director, discussed with family, reviewed EMR data (avail), discussed with nursing , discussed with case mgmt, reviewed images, amended to note Other Findings: 72-year-old female with history of gout, dyslipidemia, hypertension, diabetes mellitus, chronic kidney disease s/p right upper extremity AV fistula 06/2016 without use necessity, chronic anemia on an erythropoietin stimulating agent, and paroxysmal atrial fibrillation s/p electrical cardioversion following a transesophageal echocardiogram ~2015 with recurrence and transient antiarrhythmic therapy which led to cardioversion ~2016, last time admitted to from 2016 to 2016 for RAMO n CKD and sinus bradycardia, and was also found to have secondary hyperparathyroidism. She was discharged to rehab then and discharged in end of 2016. She was at her normal state of health; was found to be in A. Fib w/ RVR during her nephrology visit (Jay Chang M.D.) Mrs. Cueto denies any palpitations, chest discomfort, shortness of breath, feeling jittery, N/V/D, headache, lightheadedness, dizziness, no complains of nighttime snoring/nighttime frequent urination and morning headache and daytime somnolence. ROS: feeling tired sometimes.VSS. Physical exam: Head and neck: Mucous membranes are slightly dry; heart: Irregularly irregular S1-S2 no murmur; lungs: right base fine crackle; Extremity : BL trace edema. Pertinent date: Troponin 0.02 TSH 1.180 T4 2.48 ALP 468 GGT EKG: A.Fib [address] t wave change [id number]: 9.7% stroke Assessment 72 years old woman with PMH of paroxysmal Afib was admitted for asymptomatic A.Fib w/ RVR. List of active issues #1 atrial fibrillation with RVR, considerable risk of stroke: need to r/o ACS; checking secondary causes of her presentation including hyperthyroidism ( even severe subclinical), worsening/new structural heart diseases ( valvulopathy), lack of proper medication to begin with, and Anemia ( currently in a godd range) . Additionally, patient needs to have HR below 110 b/min. For the latest cardizam drip is ordered. atient also needs anticogulation, Afib for more that 48h not on AC. Further planning for lifetime AC therapy needs to be done between sizing sponger and patient ( she was on eliquis briefly two years ago and opted not to continue it due to increased risk of bleeding. Eventually she needs CARI to R/O clott formation. In regards of rate Vs Rhythme: in elder patient w. Afib who are asymptomatic and has not developed tachycardia-induced CMP could be managed with life time AC and rate control medz without further try for electro or chemical conversion. #2 hypertension (blood pressure was persistently elevated during ED stay and admission): we may need to increase her hydralazine to TID #3 secondary hyperparathyroidism: continue her home medz #4 mild hypernatremia and pre-renal azothemia: repeating BEP at mid night and decide further managment. #5 CKD- stable, continue Torsemide in the am #6 history of diabetes not on medication; he check HbA1c #7 asymptomatic elevated alkaline phosphatase: Follow GGT and refer her on outpatient limited liver and gallbladder ultrasound Plan * Admit to telemetry for continuous heart monitoring * Trending troponin and EKG at midnight and in the a.m ruling out ACS: * Repeat BEP at midnight and consider gentle IV hydration in case of worsening of the BUN and hypernatremia * Repeat labs in the a.m. * Continue Cardizem drip titrate her heart rate target heart rates below 110 beats per minutes * Consider echo in the a.m. assessing the structural heart disease * Check TSH-within normal limits * Obtain records from her sizing sponger in [place] Dr. Lutz * Discuss long-term anticoagulation therapy in the a.m. if the patient is agreeable * Continue her home dose of hydralazine and torsemide * If blood pressure persistently remained elevated consider increasing hydralazine to 3 times a day * Continue Calcitrol 0.25 mg daily; * Carbohydrate consistent diet; fingersticks 3 times a day before meals NovoLog sliding scale coverage only for more than 200 mg/dL * Proper pain pathway Housekeeping orders Full code
[2017-08-23 23:48] VITALS: BP 142/60
[2017-08-24 01:50] LABS: PTT 64 SEC (25-37)
[2017-08-24 04:00] VITALS: BP 146/80
--- NOTE | 2017-08-24 11:52 | PN- Housestaff ---
Yari BARBOUR,Tammy 08/24/17 1152: Subjective Follow-up For: afib ckd ELEVATED LFT alk phos Complaints: no complaints Tele-Events Since Last Visit: afib 91-123 pvcs and 11 beat run vtach Subjective: patient has no complaints Review of Systems Constitutional: Reports: no symptoms. Objective Last 24 Hrs of Vital Signs/I&O Vital Signs Date Time Temp Pulse Resp B/P B/P Pulse O2 O2 Flow FiO2 Mean Ox Delivery Rate 08/24 1004 106 146/80 08/24 0700 98.5 106 20 92 08/24 0400 97 146/80 08/23 2348 97.6 79 24 142/60 98 08/23 2226 124 162/105 08/23 1956 Room Air 08/23 195 124 162/105 08/23 1756 140 189/84 08/23 1756 140 189/84 08/23 1717 97.4 136 20 178/98 98 Room Air 08/23 1637 96.8 124 18 170/106 96 Room Air Intake & Output 08/24 1600 08/24 0800 08/24 0000 Intake Total 552 Output Total Balance 552 Intake, IV 432 Intake, Oral 120 Output, Urine Patient 212 lb Weight Weight Estimated Measurement Method Physical Exam General Appearance: Alert, Oriented X3, Cooperative, No Acute Distress Extremities: 2+ pitting edema bilaterally Assessment/Plan Assessment: Assessment: Patient is a 72-year-old female with past medical history significant for paroxysmal atrial fibrillation with previous cardioversions and currently not on anticoagulation per patient's decision due to her concern of bleeding, she stopped anticoagulation after cutting herself and bleeding profusely in the past , status post cardioversion 2 (last one in 2015), diabetes not on any medications currently, diabetic and hypertensive nephropathy confirmed by biopsy , hypertension, hyperlipidemia, previous admission in January 2017 treated for RAMO, chronic kidney disease stage III with AV fistula placed, not mature or needed at this point, sinus bradycardia, atrial fibrillation, diagnosed with right external carotid artery stenosis. Presents this admission with atrial fibrillation with RVR after being seen by her pipe fitter fire sprinkler systems Dr. Chang. Patient has a [id number] score of 5. Patient's last echo was 2016 and showed a restrictive filling pattern of the left ventricle, stage III diastolic dysfunction, with an EF of 65% during that admission for congestive heart failure. 1. Atrial fibrillation with RVR with vtach today Monitor on telemetry ekgs and trops negative Cardiology on board Anticoagulation with IV heparin Control rate with diltiazem drip - increased from 5->7.5 for persistant hr above 100. mg tested for vtach and was normal at 2.0 The importance of anticoagulation therapy in the setting of atrial fibrillation was discussed at length with the patient, the benefits and risks were discussed. 2. Hypertension Continue hydralazine 25 mg twice a day If blood pressure remains elevated can increase to 3 times a day 3. Diabetes currently diet controlled Hemoglobin A1c of 5.[address] on insulin sliding scale and Accu-Cheks 4. History of CAD with significant right external carotid artery stenosis from previous admission, has not followed up with vascular surgery outpatient Continue aspirin 81 mg daily Referred to vascular surgery for outpatient management 5. CHF Patient was found to have cardiomegaly with central vascular congestion and right pleural effusion on x-ray. Follow-up chest x-ray tomorrow continue toresemide Follow-up echo 6. Elevated alkaline phosphatase of greater than 400 and GGT 192. AST and ALT are normal Limited right upper quadrant ultrasound Patient has no right upper quadrant pain or any symptoms postprandially Patient denies heavy alcohol use 7. Hypokalemia Potassium is 3.6 today Repleted with Isabella Mireles 8. CKD Patient follows with Dr. Chang Creatinine at her baseline, 3.9 DVT prophylaxis: Currently on IV heparin Diet: Diabetic diet with salt restriction Code: Full code Problem List: 1. Rapid atrial fibrillation 2. Chronic kidney disease (CKD) Pain Ratin Pain Location: na Pain Goal: Remain pain free Pain Plan: na Tomorrow's Labs & Rationales: cbc bep Sumit Meza 08/24/17 1724: Attending MD Review Statement Attending Statement Attending MD Statement: examined this patient, discuss w/resident/PA/FISCAL SERVICES MANAGER, agreed w/resident/PA/FISCAL SERVICES MANAGER, reviewed EMR data (avail), discussed with nursing, discussed with case mgmt Attending Assessment/Plan: 72 yr old female with pmh of p afib not on AC, cardioversion times 2, CKD-5 with AV fistula, HTN, HLD,DM- not on meds, Stage 3 diastolic chf admitted with afib with rvr. Afib with RVR- cont on cardizem drip. increased to 7.5mg /hr. Dr Freitas from cardiology following the pt. Asked pt to d/w him the anticoagulation issue. Currently on heparin drip. I had lengthy discussion wiht pt about anticoagulation and its risks and benefits. Pt recently had a fall 2 weeks ago while at [facility] lab and hit her head and in another event at home dropped some kitchen knives which hit her feet and leg and she had bleeding while just on aspirin that she felt was hard to stop. INcreased LFTs- chelsey ALP and GGT, will get RUQ ultrasound. Gout- cont on uloric. d/w pt the care plan. cont to monitor on telemetry.
--- NOTE | 2017-08-24 13:34 | PN- Cardiology ---
Subjective Subjective: No complaints. Objective Vital Signs and I&Os Vital Signs Date Time Temp Pulse Resp B/P B/P Pulse O2 O2 Flow FiO2 Mean Ox Delivery Rate 08/25 1247 98.1 114 18 122/70 93 Room Air 08/25 1001 105 132/70 08/25 0815 114 08/25 0800 Room Air 08/25 0554 98.1 115 20 120/70 91 08/25 0552 115 08/25 0342 113 08/24 2351 98.4 107 20 110/70 93 08/24 2219 114 110/70 08/24 1658 98.5 124 20 150/76 97 Intake & Output 08/25 1600 08/25 0800 08/25 0000 08/24 1600 08/24 0800 08/24 0000 Intake Total 300 301 623 552 Output Total Balance 300 301 623 552 Intake, IV 240 101 263 432 Intake, Oral 60 200 360 120 Number 0 0 Bowel Movements Output, Urine Patient 212 lb Weight Weight Estimated Measurement Method Physical Exam: Well-developed, overweight elderly female in no acute distress. Vital signs: See above. HEENT: Normocephalic, atraumatic, EOMI, slightly dry mucous membranes. Neck: No JVD, right carotid bruit. Lungs: Decreased breath sounds otherwise clear. Heart: S1, S2 with soft (grade 1-2/6) systolic murmur. Abdomen: Soft, nontender, positive bowel sounds. Extremities: 2+ bilateral lower extremity edema. Assessment/Plan Assessment/Plan 72-y-o-w-f w/ hx gout, HLD, HTN, DM, CKD s/p RUE AV fistula 06/2016 w/o use necessity, ch anemia on RITO, & PAF s/p electrical CV following a CARI ~2015 w/ recurrence and successful antiarrhythmic Rx w/ chemical CV ~2017 who was in her usual state of health and being seen by nephrology (Jay Chang M.D.) when she was discovered to be in a rapid irregularly irregular rhythm and was sent to the ED for an ECG confirmed AF w/ RVR. Fortunately, she remains asymptomatic and the ventricular response rate has improved to ~110 bpm range, but is still too rapid. She is now on anticoagulation, which is appropriate given her elevated [id number]- VASc Score of 5 (female, age 65-74, HTN, DM, vasc dz [carotid]). Recommendations: * Continue on telemetry. * Increase diltiazem drip for better control of the ventricular response to her AF. * Consider switching from IV heparin to oral anticoagulation. * Follow-up CXR. * DVT prophylaxis being addressed by the IV heparin. Continue telemetry? Yes
[2017-08-24 14:01] LABS: PTT 61 SEC (25-37)
[2017-08-24 16:58] VITALS: BP 150/76
--- NOTE | 2017-08-24 22:57 | ULTRASOUND REPORT ---
EXAMINATION: US ABDOMEN LIMITED CLINICAL INFORMATION: Elevated alkaline phosphatase. COMPARISON: None TECHNIQUE: Real-time imaging of the right upper quadrant abdominal viscera. FINDINGS: PANCREAS: The visualized head and body are unremarkable. The tail is obscured by gas. LIVER: The liver is mildly enlarged, measuring up to 19 cm in CC dimension. The liver demonstrates normal contour with increased echogenicity. No focal lesion or intrahepatic biliary duct dilatation. GALLBLADDER: There is echogenic bile noted within the gallbladder lumen. No gallstones are seen. The gallbladder wall is thickened, measuring up to 0.5 cm in thickness. No pericholecystic fluid or gallbladder wall edema. COMMON BILE DUCT: Normal in caliber measuring 0.4 cm in diameter. RIGHT KIDNEY: Normal. No hydronephrosis. No renal calculi or focal parenchymal lesions. The kidney measures 11.8 cm in maximum dimension. FREE FLUID: None. IMPRESSION: Sludge within the gallbladder lumen with gallbladder wall thickening. No calculi are seen. This could represent acalculus cholecystitis. Consider nuclear medicine biliary scan to further evaluate. Hepatic steatosis with borderline hepatomegaly.
[2017-08-24 23:51] VITALS: BP 110/70
[2017-08-25 02:41] LABS: PTT 64 SEC (25-37)
[2017-08-25 05:54] VITALS: BP 120/70
[2017-08-25 08:16] LABS: ABSOLUTE BASOPHIL COUNT 0.1 /CUMM (0.0-0.2); ABSOLUTE EOSINOPHIL COUNT 0.4 /CUMM (0.0-0.7)
[2017-08-25 08:45] LABS: ABSOLUTE GRANULOCYTE CT 5.1 /CUMM (1.4-6.5); ABSOLUTE LYMPH COUNT 2.2 /CUMM (1.2-3.4); ABSOLUTE MONOCYTE COUNT 0.8 /CUMM (0.10-0.60); EOSINOPHIL % 4.9 % (0-5); GRANULOCYTE % 59.3 % (42.2-75.2); MEAN CORPUSCULAR HGB 27.7 PG (27.0-31.0); MEAN CORPUSCULAR HGB CONC 32.7 G/DL (33.0-37.0); MEAN CORPUSCULAR VOLUME 84.7 FL (81.0-99.0); MEAN PLATELET VOLUME 10.7 FL (7.4-10.4); PLATELET COUNT 198 /CUMM (130-400); RBC DISTRIBUTION WIDTH 15.6 % (11.5-14.5); RED BLOOD CELL CT 3.58 /CUMM (4.20-5.40); WHITE BLOOD CELL COUNT 8.6 /CUMM (4.8-10.8)
[2017-08-25 09:12] LABS: HEMATOCRIT 30.3 % (37-47)
--- NOTE | 2017-08-25 12:28 | RADIOLOGY REPORT ---
EXAMINATION: XR PORTABLE CHEST CLINICAL INFORMATION: Pulmonary effusions. Assess for worsening. COMPARISON: Chest x-ray 08/23/2017. TECHNIQUE: Portable 85 degrees semierect frontal view of the chest was obtained. FINDINGS: The lung kraus are moderately well-expanded. Increased interstitial markings in the bases are consistent with atelectasis or mild interstitial edema. The cardiac silhouette is prominent but stable. There is mild prominence of the central pulmonary vasculature. No pleural effusions are demonstrated on the current study. The aortic arch is unfolded and calcified. There are no acute osseous findings. There are 3 monitor leads overlying the chest. There are vascular calcifications in the upper arm vessels. IMPRESSION: 1. There is cardiomegaly with mild prominence of the central pulmonary vasculature and possible interstitial edema. 2. No pleural effusions are demonstrated on the current study.
[2017-08-25 12:47] VITALS: BP 122/70
--- NOTE | 2017-08-25 13:14 | PN- Cardiology ---
Subjective Subjective: No complaints, but had a significant drop in her H/H. Objective Vital Signs and I&Os Vital Signs Date Time Temp Pulse Resp B/P B/P Pulse O2 O2 Flow FiO2 Mean Ox Delivery Rate 08/25 1247 98.1 114 18 122/70 93 Room Air 08/25 1001 105 132/70 08/25 0815 114 08/25 0800 Room Air 08/25 0554 98.1 115 20 120/70 91 08/25 0552 115 08/25 0342 113 08/24 2351 98.4 107 20 110/70 93 08/24 2219 114 110/70 08/24 1658 98.5 124 20 150/76 97 Intake & Output 08/25 1600 08/25 0800 08/25 0000 08/24 1600 08/24 0800 08/24 0000 Intake Total 300 301 623 552 Output Total Balance 300 301 623 552 Intake, IV 240 101 263 432 Intake, Oral 60 200 360 120 Number 0 0 Bowel Movements Output, Urine Patient 212 lb Weight Weight Estimated Measurement Method Physical Exam: Well-developed, overweight elderly female in no acute distress. Vital signs: See above. HEENT: Normocephalic, atraumatic, EOMI, slightly dry mucous membranes. Neck: No JVD, right carotid bruit. Lungs: Decreased breath sounds otherwise clear. Heart: S1, S2 with soft (grade 1-2/6) systolic murmur. Abdomen: Soft, nontender, positive bowel sounds. Extremities: 2+ bilateral lower extremity edema. Current Medications: Current Medications Sig/Cole Start time Last Medication Dose Route Stop Time Status Admin Acetaminophen 650 MG Q6P PRN 08/23 1945 AC PO Atorvastatin Calcium 80 MG 08/24 1700 AC PO Calcitriol 0.25 MCG DAILY 08/24 1000 AC 08/25 PO 1001 Diltiazem HCl 125 MG Q12H 08/23 1700 AC 08/25 Sodium Chloride 100 ML IV 1008 Febuxostat 40 MG DAILY 08/24 1530 AC 08/25 PO 1002 Heparin Sodium 25,000 UNIT .STK-MED ONE 08/24 1505 DC (Porcine) IV 08/24 1506 Heparin Sodium 25,000 UNIT Q24H 08/23 1700 AC 08/25 (Porcine) IV 1240 Sodium Chloride 500 ML Hydralazine HCl 25 MG BID 08/23 2200 AC 08/25 PO 1001 Hydrocodone Bitart/ 1 TAB Q6P PRN 08/23 1944 AC Acetaminophen PO Insulin Aspart 0 TIDAC 08/24 0800 AC SC Oxycodone/ 2 TAB Q6P PRN 08/23 1944 AC Acetaminophen PO Potassium Chloride 40 MEQ ONCE ONE 08/24 1800 DC 08/24 PO 08/24 1802007 Sevelamer Carbonate 1,600 MG WM 08/24 1700 AC 08/25 PO 0822 Torsemide 20 MG DAILY 08/24 1000 AC 08/25 PO 1001 Results Last 48 Hrs of Labs/Mics: Laboratory Tests 08/25/17 0613: Anion Gap 15, Estimated GFR 13 L, BUN/Creatinine Ratio 14.7, CBC w Diff NO MAN DIFF REQ, RBC 3.58 L, MCV 84.7, MCH 27.7, RDW 15.6 H, MPV 10.7 H, Gran % 59.3 , Lymphocytes % 25.4, Monocytes % 9.4 H, Eosinophils % 4.9, Basophils % 1.0, Absolute Granulocytes 5.1, Absolute Lymphocytes 2.2, Absolute Monocytes 0.8 H, Absolute Eosinophils 0.4, Absolute Basophils 0.1, PUBS MCHC 32.7 L 08/25/17 0130: APTT 64 H 08/24/17 1930: APTT Cancelled 08/24/17 1321: APTT 61 H 08/24/17 0637: Anion Gap 13, Estimated GFR 15 L, BUN/Creatinine Ratio 16.1, Hemoglobin A1c 5.9 H, Magnesium 2.0, Total Bilirubin 0.6, Direct Bilirubin 0.3, AST 19, ALT 25, Alkaline Phosphatase 338 H, Total Protein 5.9 L, Albumin 3.1 L 08/24/17 0016: Sodium Cancelled, Potassium Cancelled, Chloride Cancelled, Carbon Dioxide Cancelled, Anion Gap Cancelled, BUN Cancelled, Creatinine Cancelled, BUN/ Creatinine Ratio Cancelled 08/24/17 0000: Anion Gap 15, Estimated GFR 14 L, BUN/Creatinine Ratio 15.6, Troponin I 0.02, APTT 64 H 08/23/17 1930: Urine Color Cancelled, Urine Clarity Cancelled, Urine pH Cancelled, Ur Specific [place] Cancelled, Urine Protein Cancelled, Urine Ketones Cancelled, Urine Nitrite Cancelled, Urine Bilirubin Cancelled, Urine Urobilinogen Cancelled, Ur Leukocyte Esterase Cancelled, Ur Microscopic Cancelled, Urine Hemoglobin Cancelled, Urine Glucose Cancelled 08/23/17 1733: Anion Gap 20 H, Estimated GFR 14 L, BUN/Creatinine Ratio 15.0, Glucose 120 H, Calcium 10.3 H, Total Bilirubin 1.0, GGT 192 H, AST 27, ALT 29, Alkaline Phosphatase 468 H, Troponin I 0.02, Total Protein 8.2, Albumin 4.5, Globulin 3.7, Albumin/Globulin Ratio 1.2, TSH 1.180, Free T4 2.48 H, PT 11.7, INR 1.12, APTT 34, CBC w Diff NO MAN DIFF REQ, RBC 4.47, MCV 84.2, MCH 27.6, RDW 15.9 H, MPV 9.3, Gran % 66.0, Lymphocytes % 21.0, Monocytes % 8.2, Eosinophils % 3.6, Basophils % 1.2, Absolute Granulocytes 8.0 H, Absolute Lymphocytes 2.6, Absolute Monocytes 1.0 H, Absolute Eosinophils 0.4, Absolute Basophils 0.2, PUBS MCHC 32.8 L Recent Imaging Studies: CXR 08/24/2017: 1. There is cardiomegaly with mild prominence of the central pulmonary vasculature and possible interstitial edema. 2. No pleural effusions are demonstrated on the current study. Assessment/Plan Assessment/Plan [id number] w/ hx gout, HLD, HTN, DM, CKD s/p RUE AV fistula 06/2016 w/o use necessity, ch anemia on RITO, & PAF s/p electrical CV following a CARI ~2015 w/ recurrence and successful antiarrhythmic Rx w/ chemical CV ~2016 who was in her usual state of health and being seen by nephrology (Jay Chang M.D.) when she was discovered to be in a rapid irregularly irregular rhythm and was sent to the ED for an ECG that confirmed AF w/ RVR. Fortunately, she remains asymptomatic and the ventricular response rate has improved to ~90 bpm range. She was on IV heparin anticoagulation, but had a significant drop in her H/H and this is now on hold. Recommendations: * Continue on telemetry. * Check stat H/H. * Check stool for occult blood and consider CT of the abdomen/pelvis to exclude retroperitoneal hematoma if stool negative for occult blood. * Rate coming under better control on IV diltiazem drip at 10 mg/hr. Switch to oral diltiazem by the following formula: Oral daily dosage roughly equals [drip rate (mg/hr) x3 +3] x10. So, drip rate of 11 mg/hr would roughly equal a daily dosage of 360 mg/day. * IV heparin placed on hold given drop in H/H. * Given her serum creatinine of greater than 2.5 mg/dl she is not a candidate for one of the NOACs so need to transition to warfarin when H/H stable. * DVT prophylaxis. Continue telemetry? Yes
--- NOTE | 2017-08-25 14:32 | PN- Housestaff ---
Subjective Follow-up For: afib ckd ELEVATED LFT alk phos Review of Systems Constitutional: Reports: no symptoms. Objective Last 24 Hrs of Vital Signs/I&O Vital Signs Date Time Temp Pulse Resp B/P B/P Pulse O2 O2 Flow FiO2 Mean Ox Delivery Rate 08/25 1653 98.0 66 18 124/68 96 Room Air 08/25 1247 98.1 114 18 122/70 93 Room Air 08/25 1001 105 132/70 08/25 0815 114 08/25 0800 Room Air 08/25 0554 98.1 115 20 120/70 91 08/25 0552 115 08/25 0342 113 08/24 2351 98.4 107 20 110/70 93 08/24 2219 114 110/70 Intake & Output 08/25 1600 08/25 0800 08/25 0000 Intake Total 668 300 301 Output Total 400 Balance 268 300 301 Intake, IV 308 240 101 Intake, Oral 360 60 200 Number 0 Bowel Movements Output, Urine 400 Physical Exam General Appearance: Alert, Oriented X3, Cooperative, No Acute Distress Extremities: increased lower extremity edema Assessment/Plan Assessment: Assessment: Patient is a 72-year-old female with past medical history significant for paroxysmal atrial fibrillation with previous cardioversions and currently not on anticoagulation per patient's decision due to her concern of bleeding, she stopped anticoagulation after cutting herself and bleeding profusely in the past , status post cardioversion 2 (last one in 2015), diabetes not on any medications currently, diabetic and hypertensive nephropathy confirmed by biopsy , hypertension, hyperlipidemia, previous admission in January 2017 treated for RAMO, chronic kidney disease stage III with AV fistula placed, not mature or needed at this point, sinus bradycardia, atrial fibrillation, diagnosed with right external carotid artery stenosis. 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 Chang. Patient has a [id number] score of 5. Patient's last echo was 2016 and showed a restrictive filling pattern of the left ventricle, stage III diastolic dysfunction, with an EF of 65% during that admission for congestive heart failure. 1. Atrial fibrillation with RVR with rates still to 120's Monitor on telemetry ekgs and trops negative Cardiology on board Anticoagulation with IV heparin Control rate with diltiazem drip - increased from 5->7.5 >12.5 for persistant hr above 100. mg tested for vtach and was normal at 2.0 The importance of anticoagulation therapy in the setting of atrial fibrillation was discussed at length with the patient, the benefits and risks were discussed. 2. Hypertension Continue hydralazine 25 mg twice a day If blood pressure remains elevated can increase to 3 times a day 3. Diabetes currently diet controlled Hemoglobin A1c of 5.[address] on insulin sliding scale and Accu-Cheks 4. History of CAD with significant right external carotid artery stenosis from previous admission, has not followed up with vascular surgery outpatient Continue aspirin 81 mg daily Referred to vascular surgery for outpatient management 5. CHF Patient was found to have cardiomegaly with central vascular congestion and right pleural effusion on x-ray. Follow-up chest x-ray tomorrow continue toresemide Follow-up echo 6. Elevated alkaline phosphatase of greater than 400 and GGT 192. AST and ALT are normal Limited right upper quadrant ultrasound suggests acalculus cholecystitis. will do hida today. Patient has no right upper quadrant pain or any symptoms postprandially Patient denies heavy alcohol use 7. Hypokalemia Potassium is 3.6 today Repleted with Isabella Mireles 8. CKD Patient follows with Dr. Chang Creatinine near baseline 3.4 9. anemia 12.4-->9.9 see event note stool guaic recheck hb question of bleed, assess need for Ct abdomen pelvis DVT prophylaxis: Currently on IV heparin Diet: Diabetic diet with salt restriction Code: Full code Problem List: 1. Rapid atrial fibrillation 2. Chronic kidney disease (CKD) Pain Ratin Pain Location: na Pain Goal: Remain pain free Pain Plan: na Tomorrow's Labs & Rationales: cbc bep
--- NOTE | 2017-08-25 14:44 | PN- Att Addend ---
Attending MD Review Statement Attending Statement Attending MD Statement: examined this patient, discuss w/resident/PA/LOOM BLOWER, agreed w/resident/PA/LOOM BLOWER, reviewed EMR data (avail), discussed w/nursing, discussed w/ case mgmt Attending Assessment/Plan: Laboratory Tests 08/25/17 1330: APTT Pending 08/25/17 0613: Anion Gap 15, Estimated GFR 13 L, BUN/Creatinine Ratio 14.7, CBC w Diff NO MAN DIFF REQ, RBC 3.58 L, MCV 84.7, MCH 27.7, RDW 15.6 H, MPV 10.7 H, Gran % 59.3 , Lymphocytes % 25.4, Monocytes % 9.4 H, Eosinophils % 4.9, Basophils % 1.0, Absolute Granulocytes 5.1, Absolute Lymphocytes 2.2, Absolute Monocytes 0.8 H, Absolute Eosinophils 0.4, Absolute Basophils 0.1, PUBS MCHC 32.7 L 08/25/17 0130: APTT 64 H 08/24/17 1930: APTT Cancelled Vital Signs Date Time Temp Pulse Resp B/P B/P Pulse O2 O2 Flow FiO2 Mean Ox Delivery Rate 08/25 1247 98.1 114 18 122/70 93 Room Air 08/25 1001 105 132/70 08/25 0815 114 08/25 0800 Room Air 08/25 0554 98.1 115 20 120/70 91 08/25 0552 115 08/25 0342 113 08/24 2351 98.4 107 20 110/70 93 08/24 2219 114 110/70 08/24 1658 98.5 124 20 150/76 97 72 yr old female with pmh of p afib not on AC, cardioversion times 2, CKD-5 with AV fistula but not on HD , HTN, HLD,DM- not on meds, Stage 3 diastolic chf admitted with afib with rvr. Afib with RVR- cont on cardizem drip. increased to 12.5mg /hr. cardiology following the pt. Asked pt to d/w cardiology the anticoagulation issue. Currently on heparin drip. I had lengthy discussion wiht pt about anticoagulation and its risks and benefits. Pt recently had a fall 2 weeks ago while at [facility] and hit her head and in another event at home dropped some kitchen knives which hit her feet and leg and she had bleeding while just on aspirin that she felt was hard to stop. Today her HB dropped to 9.9 so we are going to do a repeat cbc this afternoon on 08/25 and real hb drop will stop the heparin drip and send stool for guaic. INcreased LFTs- chelsey ALP and GGT, RUQ ultrasound done reveals acalculous cholecystisis ? and GB sludge. will get HIDA scan today. Pt on exam has no RUQ tenderness. Gout- cont on uloric. cont to monitor on telemetry. d/w pt the care plan.
--- NOTE | 2017-08-25 15:29 | ECHOCARDIOGRAM REPORT ---
GILL CUETO Age: 72 : 1945 Gender: F Exam Date: 08/24/2017 15:48 Exam Location: [facility] Ht (in): 69 Wt (lb): 212 BSA: 2.19 BP: 146 / 80 Ordering Physician: Peterson Velasquez MD Referring Physician: Terrence Aponte MD Technologist: Fernanda Coleman KINZA Room Number: 178 Indications: AFIB/FLUTTER Rhythm: Atrial fibrillation Technical Quality: good FINDINGS Left Ventricle Normal left ventricular size with moderate left ventricular hypertrophy. Normal systolic function with no obvious regional wall motion abnormalities. The ejection fraction is visually estimated at 60%. Right Ventricle The right ventricle is normal in size and function. Right Atrium The right atrium is normal in size. Left Atrium The left atrium is moderately enlarged. The interatrial septum is intact. Mitral Valve The mitral valve demonstrates mild annular calcification with normal function. There is mild mitral regurgitation. Aortic Valve Mildly thickened and sclerotic aortic valve without significant stenosis. There is mild aortic regurgitation. Tricuspid Valve The tricuspid valve is normal in structure and function. There is moderate tricuspid regurgitation. Pulmonary artery systolic pressure is moderately elevated to 69mmHg. Pulmonic Valve Structurally normal pulmonic valve. There is mild pulmonic regurgitation. Pericardium Normal pericardium without effusion. No pleural effusion. Great Vessels Normal aortic root dimension. The aortic arch and great vessels are well seen and are normal. CONCLUSIONS 1. Normal EF of 60%. 2. Moderate left ventricular hypertrophy. 3. Moderate left atrial enlargement. 4. Mild mitral regurgitation. 5. Moderate tricuspid regurgitation. 6. Mild aortic sclerosis with mild aortic regurgitation. 7. Mild pulmonic regurgitation. 8. Moderate to severe pulmonary hypertension. Braulio Henderson M.D. (Electronically Signed) Final Date: 25 August 2017 15:28 MEASUREMENTS (Male / Female) Normal Values 2D ECHO LV Diastolic Diameter PLAX 4.2 cm 4.2 - 5.9 / 3.9 - 5.3 cm LV Systolic Diameter PLAX 2.9 cm 2.1 - 4.0 cm LV Fractional Shortening PLAX 31.0 % 25 - 46 % LV Ejection Fraction 2D Teich 59.0 % IVS Diastolic Thickness 1.6 cm LVPW Diastolic Thickness 1.5 cm LV Relative Wall Thickness 0.7 RV Internal Dim ED PLAX 2.9 cm 1.9 - 3.8 cm LVOT Diameter 2.1 cm Aortic Root Diameter 3.3 cm LA Systolic Diameter LX 4.9 cm 3.0 - 4.0 / 2.7 - 3.8 cm LA Volume 57.0 cm 18 - 58 / 22 - 52 cm Ascending Aorta Diameter 3.3 cm DOPPLER AV Peak Velocity 190.0 cm/s AV Peak Gradient 14.4 mmHg AV Mean Velocity 134.0 cm/s AV Mean Gradient 8.0 mmHg AV Velocity Time Integral 37.2 cm LVOT Peak Velocity 129.0 cm/s LVOT Peak Gradient 6.7 mmHg LVOT Mean Velocity 87.9 cm/s LVOT Mean Gradient 4.0 mmHg LVOT Velocity Time Integral 19.7 cm LVOT Stroke Volume 68.2 cm AV Area Cont Eq vti 1.8 cm AV Area Cont Eq pk 2.4 cm MV Peak Velocity 114.0 cm/s MV Peak Gradient 5.2 mmHg MV Mean Velocity 59.5 cm/s MV Mean Gradient 2.0 mmHg Mitral E Point Velocity 91.8 cm/s MV PHT Velocity 118.0 cm/s MV Deceleration [place] 466.0 cm/s MV Pressure Half Time 76.0 ms MV Area PHT 2.9 cm MV Deceleration Time 204.0 ms TR Peak Velocity 399.0 cm/s TR Peak Gradient 63.7 mmHg Right Atrial Pressure 5.0 mmHg Pulmonary Artery Systolic Pressu 68.7 mmHg Right Ventricular Systolic Press 68.7 mmHg PV Peak Velocity 120.0 cm/s PV Peak Gradient 5.8 mmHg PV Mean Velocity 81.8 cm/s PV Mean Gradient 3.0 mmHg PV Velocity Time Integral 26.5 cm LV E' Lateral Velocity 7.4 cm/s Mitral E to LV E' Lateral Ratio 12.4 LV E' Septal Velocity 6.2 cm/s Mitral E to LV E' Septal Ratio 14.7
[2017-08-25 16:21] LABS: PTT 42 SEC (25-37)
--- NOTE | 2017-08-25 16:51 | NUCLEAR MEDICINE REPORT ---
EXAMINATION: NM HIDA SCAN CLINICAL INFORMATION: Elevated alkaline phosphatase. Evaluate for acalculus cholecystitis COMPARISON: Limited ultrasound dated 08/24/2017 TECHNIQUE: Hepatobiliary imaging was performed following intravenous demonstration of 4.99 mCi technetium 99m Choletec. Sequential images of the abdomen were performed for 60 minutes. FINDINGS: Liver demonstrates prompt uptake of activity. Activity seen in the common bile duct and small bowel by 15 minutes. Activity seen in the gallbladder by 30 minutes. IMPRESSION: There is no scintigraphic evidence of cystic or common bile duct obstruction. No scintigraphic evidence of acute cholecystitis.
[2017-08-25 16:53] VITALS: BP 124/68
[2017-08-25 18:17] LABS: ABSOLUTE BASOPHIL COUNT 0.1 /CUMM (0.0-0.2); ABSOLUTE EOSINOPHIL COUNT 0.4 /CUMM (0.0-0.7); ABSOLUTE GRANULOCYTE CT 5.7 /CUMM (1.4-6.5); ABSOLUTE LYMPH COUNT 2.2 /CUMM (1.2-3.4); ABSOLUTE MONOCYTE COUNT 0.8 /CUMM (0.10-0.60); EOSINOPHIL % 4.6 % (0-5); GRANULOCYTE % 61.7 % (42.2-75.2); MEAN CORPUSCULAR HGB 26.9 PG (27.0-31.0); MEAN CORPUSCULAR HGB CONC 31.7 G/DL (33.0-37.0); MEAN CORPUSCULAR VOLUME 84.9 FL (81.0-99.0); MEAN PLATELET VOLUME 10.4 FL (7.4-10.4); PLATELET COUNT 238 /CUMM (130-400); RBC DISTRIBUTION WIDTH 15.9 % (11.5-14.5); RED BLOOD CELL CT 4.01 /CUMM (4.20-5.40); WHITE BLOOD CELL COUNT 9.2 /CUMM (4.8-10.8)
--- NOTE | 2017-08-25 18:22 | Event Note ---
Event Note Event Note: Patient was on IV heparin drip for rapid A. fib and high ChadSVASC SCORE. * Hemoglobin dropped to 9.9 from 12.4. * We did stat CBCs which showed hemoglobin 10.8/34. * Spoke with Dr. Meza and Dr. Aponte-as hemoglobin is okay we are planning to continue heparin drip for now. * We will check guaiac stools. * Repeat CBC at 10 PM tonight * If hemoglobin continues to drop with guaiac-positive stools will stop heparin drip and call GI.
[2017-08-25 21:49] VITALS: BP 146/82
[2017-08-25 23:02] LABS: ABSOLUTE BASOPHIL COUNT 0.1 /CUMM (0.0-0.2); ABSOLUTE EOSINOPHIL COUNT 0.4 /CUMM (0.0-0.7); ABSOLUTE GRANULOCYTE CT 6.5 /CUMM (1.4-6.5); ABSOLUTE LYMPH COUNT 2.3 /CUMM (1.2-3.4); BASOPHIL % 0.9 % (0.0-2.0); EOSINOPHIL % 4.1 % (0-5); GRANULOCYTE % 62.5 % (42.2-75.2); HEMATOCRIT 29.7 % (37-47); MEAN CORPUSCULAR HGB 27.5 PG (27.0-31.0); MEAN CORPUSCULAR HGB CONC 32.4 G/DL (33.0-37.0); MEAN CORPUSCULAR VOLUME 85.1 FL (81.0-99.0); MEAN PLATELET VOLUME 8.6 FL (7.4-10.4); PLATELET COUNT 194 /CUMM (130-400); RBC DISTRIBUTION WIDTH 15.3 % (11.5-14.5); RED BLOOD CELL CT 3.49 /CUMM (4.20-5.40); WHITE BLOOD CELL COUNT 10.4 /CUMM (4.8-10.8)
[2017-08-25 23:20] LABS: PTT 105 SEC (25-37)
--- NOTE | 2017-08-26 01:21 | CT SCAN REPORT ---
EXAMINATION: CT ABDOMEN AND PELVIS WITHOUT CONTRAST CLINICAL INFORMATION: Drop in H\T\H. On heparin. Evaluate for retroperitoneal hematoma. COMPARISON: No prior CT for comparison. TECHNIQUE: Multidetector volumetric imaging was performed from the superior aspect of the liver through the pubic symphysis. Sagittal and coronal reformatted images were obtained on the technologist's workstation. DLP: 1122 mGy-cm FINDINGS: LUNG BASES: Small bilateral pleural effusions, right greater than left. Associated basilar atelectasis. Coronary artery calcifications. LIVER, GALLBLADDER, AND BILIARY TREE: The liver is normal in size, shape, and attenuation. No focal hepatic lesion or biliary ductal dilatation is present. Cholelithiasis. Associated gallbladder wall thickening. PANCREAS: Unremarkable. SPLEEN: Unremarkable. ADRENAL GLANDS: Unremarkable. KIDNEYS AND URETERS: The kidneys are normal in size, shape, and attenuation. No hydronephrosis, hydroureter, or calculi seen. Symmetric perinephric stranding. BLADDER: Unremarkable. GASTROINTESTINAL TRACT: The stomach and small bowel are unremarkable. No dilated loops of bowel or evidence of obstruction. No colonic wall thickening or inflammatory changes. No free air or free fluid. ABDOMINAL WALL: Anasarca. No significant hernia. LYMPH NODES: Normal. VASCULAR: Normal caliber aorta with diffuse extensive atherosclerotic calcifications. PELVIC VISCERA: The uterus and adnexa are unremarkable. IUD in place. OSSEOUS STRUCTURES: No acute or suspicious osseous abnormality. Degenerative changes in the spine. Degenerative changes of both hips, left greater than right. IMPRESSION: No evidence of retroperitoneal hematoma. Cholelithiasis with gallbladder wall thickening again noted. Bilateral pleural effusions. Extensive atherosclerotic vascular calcifications.
[2017-08-26 05:55] LABS: ABSOLUTE BASOPHIL COUNT 0.1 /CUMM (0.0-0.2); ABSOLUTE EOSINOPHIL COUNT 0.4 /CUMM (0.0-0.7); ABSOLUTE GRANULOCYTE CT 6.3 /CUMM (1.4-6.5); ABSOLUTE LYMPH COUNT 2.3 /CUMM (1.2-3.4); ABSOLUTE MONOCYTE COUNT 0.9 /CUMM (0.10-0.60); BASOPHIL % 0.9 % (0.0-2.0); EOSINOPHIL % 4.2 % (0-5); GRANULOCYTE % 62.9 % (42.2-75.2); HEMATOCRIT 31.3 % (37-47); MEAN CORPUSCULAR HGB 27.5 PG (27.0-31.0); MEAN CORPUSCULAR HGB CONC 32.5 G/DL (33.0-37.0); MEAN CORPUSCULAR VOLUME 84.4 FL (81.0-99.0); MEAN PLATELET VOLUME 9.2 FL (7.4-10.4); PLATELET COUNT 218 /CUMM (130-400); RBC DISTRIBUTION WIDTH 16.3 % (11.5-14.5); RED BLOOD CELL CT 3.71 /CUMM (4.20-5.40)
[2017-08-26 06:38] VITALS: BP 140/80
--- NOTE | 2017-08-26 11:44 | PN- Housestaff ---
Yari BARBOUR,Tammy 08/26/17 1144: Subjective Follow-up For: afib ckd ELEVATED LFT alk phos Subjective: patient had hida scan done yesterday and was quite anxious and had back pain during the procedure. patient continues to have elevated HR to 120 lasst night. Review of Systems Constitutional: Reports: no symptoms. Objective Last 24 Hrs of Vital Signs/I&O Vital Signs Date Time Temp Pulse Resp B/P B/P Pulse O2 O2 Flow FiO2 Mean Ox Delivery Rate 08/26 2319 98.3 123 18 142/70 91 Room Air 08/26 2122 123 144/70 08/26 1543 98.1 95 20 150/72 92 Room Air 08/26 0851 75 140/80 08/26 0638 98.2 75 20 140/80 91 Room Air Intake & Output 08/26 1600 08/26 0800 08/26 0000 Intake Total 200 336 544 Output Total 450 400 Balance 200 -114 144 Intake, IV 96 304 Intake, Oral 200 240 240 Number 0 Bowel Movements Output, Urine 450 400 Physical Exam General Appearance: Alert, Oriented X3, Cooperative, No Acute Distress Skin: No Rashes, No Breakdown, No Significant Lesion Cardiovascular: Normal S1, Normal S2 Lungs: Clear to Auscultation, Normal Air Movement Neurological: Normal Speech Current Medications: Current Medications Sig/Cole Start time Last Medication Dose Route Stop Time Status Admin Acetaminophen 650 MG Q6P PRN 08/23 1944 AC PO Atorvastatin Calcium 80 MG 1700 08/24 1700 AC 08/26 PO 1740 Calcitriol 0.25 MCG DAILY 08/24 1000 AC 08/26 PO 1400 Diltiazem HCl 125 MG Q10H 08/25 2000 AC 08/26 Sodium Chloride 100 ML IV 1742 Febuxostat 40 MG DAILY 08/24 1530 AC 08/26 PO 1400 Heparin Sodium 25,000 UNIT Q24H 08/25 1515 DC (Porcine) IV Sodium Chloride 500 ML Hydralazine HCl 25 MG BID 08/23 2199 AC 08/26 PO 2123 Hydrocodone Bitart/ 1 TAB Q6P PRN 08/23 1944 AC Acetaminophen PO Insulin Aspart 0 TIDAC 08/24 0800 AC SC Oxycodone/ 2 TAB Q6P PRN 08/23 1944 AC Acetaminophen PO Sevelamer Carbonate 1,600 MG WM 08/24 1700 AC 08/26 PO 1700 Torsemide 20 MG DAILY 08/24 1000 AC 08/26 PO 1441 Last 24 Hrs of Lab/Rayshawn Results Last 24 Hrs of Labs/Mics: Laboratory Tests 08/26/17 0600: APTT Cancelled, CBC w Diff Cancelled, WBC Cancelled, RBC Cancelled, Hgb Cancelled, Hct Cancelled, MCV Cancelled, MCH Cancelled, RDW Cancelled, Plt Count Cancelled, MPV Cancelled, PUBS MCHC Cancelled 08/26/17 0515: Anion Gap 15, Estimated GFR 12 L, BUN/Creatinine Ratio 14.2, CBC w Diff NO MAN DIFF REQ, RBC 3.71 L, MCV 84.4, MCH 27.5, RDW 16.3 H, MPV 9.2, Gran % 62.9, Lymphocytes % 22.7, Monocytes % 9.3, Eosinophils % 4.2, Basophils % 0.9, Absolute Granulocytes 6.3, Absolute Lymphocytes 2.3, Absolute Monocytes 0.9 H, Absolute Eosinophils 0.4, Absolute Basophils 0.1, PUBS MCHC 32.5 L Assessment/Plan Assessment: Assessment: Patient is a 72-year-old female with past medical history significant for paroxysmal atrial fibrillation with previous cardioversions and currently not on anticoagulation per patient's decision due to her concern of bleeding, she stopped anticoagulation after cutting herself and bleeding profusely in the past , status post cardioversion 2 (last one in 2015), diabetes not on any medications currently, diabetic and hypertensive nephropathy confirmed by biopsy , hypertension, hyperlipidemia, previous admission in January 2017 treated for RAMO, chronic kidney disease stage III with AV fistula placed, not mature or needed at this point, sinus bradycardia, atrial fibrillation, diagnosed with right external carotid artery stenosis. Presents this admission with atrial fibrillation with RVR after being seen by her pest control chemical technician Dr. Chang. Patient has a [id number] score of 5. Patient's last echo was 2016 and showed a restrictive filling pattern of the left ventricle, stage III diastolic dysfunction, with an EF of 65% during that admission for congestive heart failure. 1. Atrial fibrillation with RVR with rates still to 120's Monitor on telemetry ekgs and trops negative Cardiology on board Anticoagulation with IV heparin Control rate with diltiazem drip - increased from 5->7.5 >12.5 for persistant hr above 100. mg tested for vtach and was normal at 2.0 The importance of anticoagulation therapy in the setting of atrial fibrillation was discussed at length with the patient, the benefits and risks were discussed. 2. Hypertension Continue hydralazine 25 mg twice a day If blood pressure remains elevated can increase to 3 times a day 3. Diabetes currently diet controlled Hemoglobin A1c of 5.[address] on insulin sliding scale and Accu-Cheks 4. History of CAD with significant right external carotid artery stenosis from previous admission, has not followed up with vascular surgery outpatient Continue aspirin 81 mg daily Referred to vascular surgery for outpatient management 5. CHF Patient was found to have cardiomegaly with central vascular congestion and right pleural effusion on x-ray. continue toresemide Follow-up echo patient not on oxygen now. 6. Elevated alkaline phosphatase of greater than 400 and GGT 192. AST and ALT are normal Limited right upper quadrant ultrasound suggests acalculus cholecystitis. hida showed no abnormality Patient has no right upper quadrant pain or any symptoms postprandially Patient denies heavy alcohol use 7. Hypokalemia Repleted with K Dur 8. CKD Patient follows with Dr. Chang Creatinine near baseline 9. anemia 12.4-->9.9. this morning hb is slightly higher at 10.8 and 10.2. see event note stool guaic recheck hb ct abd pelvis negative for bleeding source DVT prophylaxis: Currently on IV heparin Diet: Diabetic diet with salt restriction Code: Full code Problem List: 1. Chronic kidney disease (CKD) Pain Ratin Pain Location: na Pain Goal: Remain pain free Pain Plan: na Tomorrow's Labs & Rationales: cbc bep Geovanni BARBOUR,Richard 08/26/17 1358: Attending MD Review Statement Attending Statement Attending MD Statement: examined this patient, discuss w/resident/PA/AUTOMOTIVE POWER ELECTRONICS ENGINEER, agreed w/resident/PA/AUTOMOTIVE POWER ELECTRONICS ENGINEER, reviewed EMR data (avail), discussed with nursing, discussed with case mgmt, amended to note Attending Assessment/Plan: Patient seen and examined. Resting comfortably and is in any acute distress. No issues overnight. She remains in atrial fibrillation with heart rate ranging from 81-100. Denies chest pain or shortness of breath. Denies palpitations. She reports feeling well. On examination heart sounds are regular. Lungs are clear to auscultation bilaterally. She has bilateral pedal edema with mild erythema. No warmth. No open area. No discharge. Recommendations: -Follow-up with a assembler piano regarding transitioning patient to oral rate control medications. She is currently rate controlled on Cardizem infusion. -Patient continues to refuse long-term anticoagulation therapy. She is well aware of the associated risk of developing a stroke that can significantly limit her functional status or even be fatal. -Continue diuresis with torsemide. Recommend leg elevation and placement of compression stockings. -HIDA scan could not be done yesterday. She denies any abdominal discomfort or nausea. She is tolerating her meals. She has no abdominal discomfort on exam. Recommend repeating her liver function tests including alkaline phosphatase levels tomorrow.
--- NOTE | 2017-08-26 15:38 | PN- Cardiology ---
Subjective Subjective: Doing okay. No specific complaints. Sitting in a bedside chair without symptoms. Objective Vital Signs and I&Os Vital Signs Date Time Temp Pulse Resp B/P B/P Pulse O2 O2 Flow FiO2 Mean Ox Delivery Rate 08/26 0851 75 140/80 08/26 0638 98.2 75 20 140/80 91 Room Air 08/25 2245 88 146/82 08/25 2149 97.8 96 20 146/82 95 08/25 1653 98.0 66 18 124/68 96 Room Air Intake & Output 08/26 1600 08/26 0800 08/26 0000 08/25 1600 08/25 0800 08/25 0000 Intake Total 336 544 668 300 301 Output Total 450 400 400 Balance -114 144 268 300 301 Intake, IV 96 304 308 240 101 Intake, Oral 240 240 360 60 200 Number 0 0 Bowel Movements Output, Urine 450 400 400 Physical Exam: Well-developed, overweight elderly female in no acute distress. Vital signs: See above. HEENT: Normal Neck: No JVD, right carotid bruit. Lungs: Scattered rhonchi with decreased breath sounds Heart: S1, S2 with soft (grade 1-2/6) systolic murmur. Abdomen: Soft, nontender, positive bowel sounds. Extremities: 1-2+ bilateral lower extremity edema. Current Medications: Current Medications Sig/Cole Start time Last Medication Dose Route Stop Time Status Admin Acetaminophen 650 MG Q6P PRN 08/23 1944 AC PO Atorvastatin Calcium 80 MG 1700 08/24 1700 AC 08/25 PO 1700 Calcitriol 0.25 MCG DAILY 08/24 1000 AC 08/26 PO 1400 Diltiazem HCl 125 MG Q10H 08/25 2000 AC 08/26 Sodium Chloride 100 ML IV 0505 Diltiazem HCl 125 MG Q12H 08/23 1700 DC 08/25 Sodium Chloride 100 ML IV 08/25 195 1008 Febuxostat 40 MG DAILY 08/24 1530 AC 08/26 PO 1400 Heparin Sodium 5,000 UNIT .STK-MED ONE 08/25 2019 DC (Porcine) IV 08/25 202 Heparin Sodium 25,000 UNIT Q24H 08/25 1515 DC (Porcine) IV Sodium Chloride 500 ML Hydralazine HCl 25 MG BID 08/23 2200 AC 08/26 PO 0851 Hydrocodone Bitart/ 1 TAB Q6P PRN 08/23 1944 AC Acetaminophen PO Insulin Aspart 0 TIDAC 08/24 0800 AC SC Oxycodone/ 2 TAB Q6P PRN 08/23 1944 AC Acetaminophen PO Sevelamer Carbonate 1,600 MG WM 08/24 1700 AC 08/26 PO 1400 Torsemide 20 MG DAILY 08/24 1000 AC 08/26 PO 1441 Results Last 48 Hrs of Labs/Mics: Laboratory Tests 08/26/17 0600: APTT Cancelled, CBC w Diff Cancelled, WBC Cancelled, RBC Cancelled, Hgb Cancelled, Hct Cancelled, MCV Cancelled, MCH Cancelled, RDW Cancelled, Plt Count Cancelled, MPV Cancelled, PUBS MCHC Cancelled 08/26/17 0515: Anion Gap 15, Estimated GFR 12 L, BUN/Creatinine Ratio 14.2, CBC w Diff NO MAN DIFF REQ, RBC 3.71 L, MCV 84.4, MCH 27.5, RDW 16.3 H, MPV 9.2, Gran % 62.9, Lymphocytes % 22.7, Monocytes % 9.3, Eosinophils % 4.2, Basophils % 0.9, Absolute Granulocytes 6.3, Absolute Lymphocytes 2.3, Absolute Monocytes 0.9 H, Absolute Eosinophils 0.4, Absolute Basophils 0.1, PUBS MCHC 32.5 L 08/25/17 2235: APTT 105 *H, CBC w Diff NO MAN DIFF REQ, RBC 3.49 L, MCV 85.1, MCH 27.5, RDW 15.3 H, MPV 8.6, Gran % 62.5, Lymphocytes % 22.6, Monocytes % 9.9 H, Eosinophils % 4.1, Basophils % 0.9, Absolute Granulocytes 6.5, Absolute Lymphocytes 2.3, Absolute Monocytes 1.0 H, Absolute Eosinophils 0.4, Absolute Basophils 0.1, PUBS MCHC 32.4 L 08/25/17 1628: CBC w Diff NO MAN DIFF REQ, RBC 4.01 L, MCV 84.9, MCH 26.9 L, RDW 15.9 H, MPV 10.4, Gran % 61.7, Lymphocytes % 23.6, Monocytes % 9.1, Eosinophils % 4.6, Basophils % 1.0, Absolute Granulocytes 5.7, Absolute Lymphocytes 2.2, Absolute Monocytes 0.8 H, Absolute Eosinophils 0.4, Absolute Basophils 0.1, PUBS MCHC 31.7 L 08/25/17 1330: APTT 42 H 08/25/17 0613: Anion Gap 15, Estimated GFR 13 L, BUN/Creatinine Ratio 14.7, CBC w Diff NO MAN DIFF REQ, RBC 3.58 L, MCV 84.7, MCH 27.7, RDW 15.6 H, MPV 10.7 H, Gran % 59.3 , Lymphocytes % 25.4, Monocytes % 9.4 H, Eosinophils % 4.9, Basophils % 1.0, Absolute Granulocytes 5.1, Absolute Lymphocytes 2.2, Absolute Monocytes 0.8 H, Absolute Eosinophils 0.4, Absolute Basophils 0.1, PUBS MCHC 32.7 L 08/25/17 0130: APTT 64 H 08/24/17 1930: APTT Cancelled Assessment/Plan Assessment/Plan Assessment: 1. Atrial fibrillation 2. Hypertension 2. Hyperlipidemia 4. Chronic renal insufficiency; status post right arm AV fistula 5. Anemia Recommendations: -Follow-up labs pending -Continue to monitor H&H -Continue current rate controlling medications -If rate remains stable, consider transitioning to oral diltiazem tomorrow. Continue telemetry? Yes
[2017-08-26 15:43] VITALS: BP 150/72
[2017-08-26 23:19] VITALS: BP 142/70
[2017-08-27 06:30] VITALS: BP 156/70
[2017-08-27 07:58] LABS: ABSOLUTE BASOPHIL COUNT 0.1 /CUMM (0.0-0.2); ABSOLUTE EOSINOPHIL COUNT 0.5 /CUMM (0.0-0.7); ABSOLUTE GRANULOCYTE CT 7.4 /CUMM (1.4-6.5); ABSOLUTE LYMPH COUNT 1.7 /CUMM (1.2-3.4); ABSOLUTE MONOCYTE COUNT 0.9 /CUMM (0.10-0.60); BASOPHIL % 0.7 % (0.0-2.0); EOSINOPHIL % 4.9 % (0-5); GRANULOCYTE % 69.6 % (42.2-75.2); HEMATOCRIT 30.2 % (37-47); MEAN CORPUSCULAR HGB CONC 33.3 G/DL (33.0-37.0); MEAN CORPUSCULAR VOLUME 84.2 FL (81.0-99.0); MEAN PLATELET VOLUME 9.4 FL (7.4-10.4); PLATELET COUNT 193 /CUMM (130-400); RBC DISTRIBUTION WIDTH 15.5 % (11.5-14.5); RED BLOOD CELL CT 3.59 /CUMM (4.20-5.40); WHITE BLOOD CELL COUNT 10.6 /CUMM (4.8-10.8)
--- NOTE | 2017-08-27 09:24 | PN- Housestaff ---
See Addendum Subjective Follow-up For: Rapid afib Tele-Events Since Last Visit: Afib, 90-150 Subjective: No overnight events. Complaining of dysuria and frequency. Otherwise, no CP, SOB , N/V/D. Doesn't like being in the hospital. Review of Systems Constitutional: Reports: no symptoms. EENTM: Reports: no symptoms. Cardiovascular: Reports: no symptoms. Respiratory: Reports: no symptoms. Gastrointestinal: Reports: no symptoms. Genitourinary: Reports: see HPI. Musculoskeletal: Reports: no symptoms. Skin: Reports: no symptoms. Neurological/Psychological: Reports: no symptoms. Hematologic/Endocrine: Reports: no symptoms. Immunologic/Allergic: Reports: no symptoms. Objective Last 24 Hrs of Vital Signs/I&O Vital Signs Date Time Temp Pulse Resp B/P B/P Pulse O2 O2 Flow FiO2 Mean Ox Delivery Rate 08/27 0834 109 156/70 08/27 0709 97.8 08/27 0630 98.8 109 22 156/70 91 Room Air 08/26 2319 98.3 123 18 142/70 91 Room Air 08/26 2123 123 144/70 08/26 1543 98.1 95 20 150/72 92 Room Air Intake & Output 08/27 1600 08/27 0800 08/27 0000 Intake Total 340 580 Output Total 600 800 Balance -260 -220 Intake, IV 100 100 Intake, Oral 240 480 Number 0 0 Bowel Movements Output, Urine 600 800 Physical Exam General Appearance: Alert, Oriented X3, Cooperative, No Acute Distress Skin: No Rashes Cardiovascular: irregular, tachy Lungs: Clear to Auscultation Abdomen: Normal Bowel Sounds, Soft, No Tenderness Extremities: Normal Pulses, nonpitting edema Current Medications: Current Medications Sig/Cole Start time Last Medication Dose Route Stop Time Status Admin Acetaminophen 650 MG Q6P PRN 08/23 1945 AC PO Atorvastatin Calcium 80 MG 1700 08/24 1700 AC 08/26 PO 1740 Calcitriol 0.25 MCG DAILY 08/24 1000 AC 08/27 PO 0832 Ceftriaxone Sodium 1,000 MG DAILY 08/27 1000 UNVr IV Diltiazem HCl 125 MG Q10H 08/25 1999 AC 08/27 Sodium Chloride 100 ML IV 0344 Febuxostat 40 MG DAILY 08/24 1530 AC 08/27 PO 0833 Hydralazine HCl 25 MG BID 08/23 2200 AC 08/27 PO 0834 Hydrocodone Bitart/ 1 TAB Q6P PRN 08/23 1944 AC Acetaminophen PO Insulin Aspart 0 TIDAC 08/24 0800 AC SC Oxycodone/ 2 TAB Q6P PRN 08/23 1944 AC Acetaminophen PO Sevelamer Carbonate 1,600 MG WM 08/24 1700 AC 08/27 PO 0832 Torsemide 20 MG DAILY 08/24 1000 AC 08/27 PO 0836 Last 24 Hrs of Lab/Rayshawn Results Last 24 Hrs of Labs/Mics: Laboratory Tests 08/27/17 0620: Anion Gap 15, Estimated GFR 11 L, BUN/Creatinine Ratio 13.6, Total Bilirubin 0.8, Direct Bilirubin 0.4, AST 16, ALT 27, Alkaline Phosphatase 304 H, Total Protein 6.8, Albumin 3.4 L, CBC w Diff NO MAN DIFF REQ, RBC 3.59 L, MCV 84.2, MCH 28.0, RDW 15.5 H, MPV 9.4, Gran % 69.6, Lymphocytes % 15.8 L, Monocytes % 9.0, Eosinophils % 4.9, Basophils % 0.7, Absolute Granulocytes 7.4 H, Absolute Lymphocytes 1.7, Absolute Monocytes 0.9 H, Absolute Eosinophils 0.5, Absolute Basophils 0.1, PUBS MCHC 33.3 08/27/17 0327: Urine Color YEL, Urine Clarity CLDY H, Urine pH 6.0, Ur Specific [place] 1.020, Urine Protein 100 H, Urine Ketones NEG, Urine Nitrite POS H, Urine Bilirubin NEG, Urine Urobilinogen 0.2, Ur Leukocyte Esterase MOD H, Ur Microscopic SEDIMENT EXAMINED, Urine RBC 3-5, Urine WBC PACKD H, Urine Bacteria PACKD H, Urine Hemoglobin SMALL H, Urine Glucose NEG Microbiology 08/27 326 URINE ROUT: Urine Culture - RECD Assessment/Plan Assessment: Assessment: Patient is a 72-year-old female with past medical history significant for paroxysmal atrial fibrillation with previous cardioversions and currently not on anticoagulation per patient's decision due to her concern of bleeding, she stopped anticoagulation after cutting herself and bleeding profusely in the past , status post cardioversion 2 (last one in 2015), diabetes not on any medications currently, diabetic and hypertensive nephropathy confirmed by biopsy , hypertension, hyperlipidemia, previous admission in January 2017 treated for RAMO, chronic kidney disease stage III with AV fistula placed, not mature or needed at this point, sinus bradycardia, atrial fibrillation, diagnosed with right external carotid artery stenosis. Presents this admission with atrial fibrillation with RVR after being seen by her corporate licensed broker Dr. Chang. Patient has a [id number] score of 5. Patient's last echo was 2016 and showed a restrictive filling pattern of the left ventricle, stage III diastolic dysfunction, with an EF of 65% during that admission for congestive heart failure. 1. Atrial fibrillation with RVR with rates still to 120's Monitor on telemetry ekgs and trops negative Cardiology on board Anticoagulation with IV heparin Control rate with diltiazem drip The importance of anticoagulation therapy in the setting of atrial fibrillation was discussed at length with the patient, the benefits and risks were discussed. UTI: Patient complaining of dysuria, urinary frequency, with urinalysis showing packed WBCs. Urine culture pending. -Start ceftriaxone 2. Hypertension Continue hydralazine 25 mg twice a day If blood pressure remains elevated can increase to 3 times a day 3. Diabetes currently diet controlled Hemoglobin A1c of 5.[address] on insulin sliding scale and Accu-Cheks 4. History of CAD with significant right external carotid artery stenosis from previous admission, has not followed up with vascular surgery outpatient Continue aspirin 81 mg daily Referred to vascular surgery for outpatient management 5. CHF Patient was found to have cardiomegaly with central vascular congestion and right pleural effusion on x-ray. continue toresemide Follow-up echo patient not on oxygen now. 6. Elevated alkaline phosphatase of greater than 400 and GGT 192. AST and ALT are normal Limited right upper quadrant ultrasound suggests acalculus cholecystitis. hida showed no abnormality Patient has no right upper quadrant pain or any symptoms postprandially Patient denies heavy alcohol use 7. Hypokalemia Resolved 8. CKD Patient follows with Dr. Chang Creatinine near baseline 9. anemia: Secondary to chronic disease. -Epogen as per nephrology outpatient DVT prophylaxis: Currently on IV heparin Diet: Diabetic diet with salt restriction Code: Full code Problem List: 1. Rapid atrial fibrillation Pain Ratin Pain Location: no pain Pain Goal: Remain pain free Pain Plan: see a/p Tomorrow's Labs & Rationales: cbc, bep
[2017-08-27 14:48] VITALS: BP 128/86
--- NOTE | 2017-08-27 15:15 | PN- Cardiology ---
Subjective Subjective: Stable; rate controlled; probable UTI Objective Vital Signs and I&Os Vital Signs Date Time Temp Pulse Resp B/P B/P Pulse O2 O2 Flow FiO2 Mean Ox Delivery Rate 08/27 1448 97.8 110 19 128/86 96 Room Air 08/27 0834 109 156/70 08/27 0709 97.8 08/27 0630 98.8 109 22 156/70 91 Room Air 08/26 2319 98.3 123 18 142/70 91 Room Air 08/26 2123 123 144/70 08/26 1543 98.1 95 20 150/72 92 Room Air Intake & Output 08/27 1600 08/27 0800 08/27 0000 08/26 1600 08/26 0800 08/26 0000 Intake Total 340 580 200 336 544 Output Total 600 800 450 400 Balance -260 -220 200 -114 144 Intake, IV 100 100 96 304 Intake, Oral 240 480 200 240 240 Number 0 0 0 Bowel Movements Output, Urine 600 800 450 400 Physical Exam: Well-developed, overweight elderly female in no acute distress. Vital signs: See above. HEENT: Normal Neck: No JVD, right carotid bruit. Lungs: Scattered rhonchi with decreased breath sounds Heart: S1, S2 with soft (grade 1-2/6) systolic murmur. Abdomen: Soft, nontender, positive bowel sounds. Extremities: 1-2+ bilateral lower extremity edema. Current Medications: Current Medications Sig/Cole Start time Last Medication Dose Route Stop Time Status Admin Acetaminophen 650 MG Q6P PRN 08/23 1944 AC PO Atorvastatin Calcium 80 MG 1700 08/24 1700 AC 08/26 PO 1740 Calcitriol 0.25 MCG DAILY 08/24 1000 AC 08/27 PO 0832 Ceftriaxone Sodium 1,000 MG DAILY 08/27 1000 AC 08/27 IV 1100 Diltiazem HCl 125 MG Q10H 08/25 2000 08/27 Sodium Chloride 100 ML IV 1431 Febuxostat 40 MG DAILY 08/24 1530 AC 08/27 PO 0833 Hydralazine HCl 25 MG BID 08/23 2199 AC 08/27 PO 0834 Hydrocodone Bitart/ 1 TAB Q6P PRN 08/23 1944 AC Acetaminophen PO Insulin Aspart 0 TIDAC 08/24 0800 AC SC Oxycodone/ 2 TAB Q6P PRN 08/23 1944 AC Acetaminophen PO Sevelamer Carbonate 1,600 MG WM 08/24 1700 AC 08/27 PO 1211 Torsemide 20 MG DAILY 08/24 1000 AC 08/27 PO 0836 Results Last 48 Hrs of Labs/Mics: Laboratory Tests 08/27/17 0620: Anion Gap 15, Estimated GFR 11 L, BUN/Creatinine Ratio 13.6, Total Bilirubin 0.8, Direct Bilirubin 0.4, AST 16, ALT 27, Alkaline Phosphatase 304 H, Total Protein 6.8, Albumin 3.4 L, CBC w Diff NO MAN DIFF REQ, RBC 3.59 L, MCV 84.2, MCH 28.0, RDW 15.5 H, MPV 9.4, Gran % 69.6, Lymphocytes % 15.8 L, Monocytes % 9.0, Eosinophils % 4.9, Basophils % 0.7, Absolute Granulocytes 7.4 H, Absolute Lymphocytes 1.7, Absolute Monocytes 0.9 H, Absolute Eosinophils 0.5, Absolute Basophils 0.1, PUBS MCHC 33.3 08/27/17 0327: Urine Color YEL, Urine Clarity CLDY H, Urine pH 6.0, Ur Specific [place] 1.020, Urine Protein 100 H, Urine Ketones NEG, Urine Nitrite POS H, Urine Bilirubin NEG, Urine Urobilinogen 0.2, Ur Leukocyte Esterase MOD H, Ur Microscopic SEDIMENT EXAMINED, Urine RBC 3-5, Urine WBC PACKD H, Urine Bacteria PACKD H, Urine Hemoglobin SMALL H, Urine Glucose NEG 08/26/17 0600: APTT Cancelled, CBC w Diff Cancelled, WBC Cancelled, RBC Cancelled, Hgb Cancelled, Hct Cancelled, MCV Cancelled, MCH Cancelled, RDW Cancelled, Plt Count Cancelled, MPV Cancelled, PUBS MCHC Cancelled 08/26/17 0515: Anion Gap 15, Estimated GFR 12 L, BUN/Creatinine Ratio 14.2, CBC w Diff NO MAN DIFF REQ, RBC 3.71 L, MCV 84.4, MCH 27.5, RDW 16.3 H, MPV 9.2, Gran % 62.9, Lymphocytes % 22.7, Monocytes % 9.3, Eosinophils % 4.2, Basophils % 0.9, Absolute Granulocytes 6.3, Absolute Lymphocytes 2.3, Absolute Monocytes 0.9 H, Absolute Eosinophils 0.4, Absolute Basophils 0.1, PUBS MCHC 32.5 L 08/25/175: APTT 105 *H, CBC w Diff NO MAN DIFF REQ, RBC 3.49 L, MCV 85.1, MCH 27.5, RDW 15.3 H, MPV 8.6, Gran % 62.5, Lymphocytes % 22.6, Monocytes % 9.9 H, Eosinophils % 4.1, Basophils % 0.9, Absolute Granulocytes 6.5, Absolute Lymphocytes 2.3, Absolute Monocytes 1.0 H, Absolute Eosinophils 0.4, Absolute Basophils 0.1, PUBS MCHC 32.4 L 08/25/17 1628: CBC w Diff NO MAN DIFF REQ, RBC 4.01 L, MCV 84.9, MCH 26.9 L, RDW 15.9 H, MPV 10.4, Gran % 61.7, Lymphocytes % 23.6, Monocytes % 9.1, Eosinophils % 4.6, Basophils % 1.0, Absolute Granulocytes 5.7, Absolute Lymphocytes 2.2, Absolute Monocytes 0.8 H, Absolute Eosinophils 0.4, Absolute Basophils 0.1, PUBS MCHC 31.7 L Assessment/Plan Assessment/Plan Assessment: 1. Atrial fibrillation 2. Hypertension 2. Hyperlipidemia 4. Chronic renal insufficiency; status post right arm AV fistula 5. Anemia Recommendations: -Follow-up labs pending -Continue to monitor H&H -Continue current rate controlling medications. Since there is evidence of an ongoing urinary tract infection, I would keep the patient on IV Cardizem for optimizing rate control until tomorrow. -If rate remains stable, and the patient is otherwise doing well clinically, consider transitioning to oral diltiazem tomorrow. -Further decisions about anticoagulation pending. It might be woodson to start IV heparin for 24 hours with monitoring of the patient's hemoglobin and hematocrit prior to instituting oral warfarin to better assess her status. Continue telemetry? Yes
[2017-08-27 23:00] VITALS: BP 148/62
[2017-08-28 06:50] VITALS: BP 138/70
[2017-08-28 08:31] LABS: ABSOLUTE BASOPHIL COUNT 0.1 /CUMM (0.0-0.2); ABSOLUTE EOSINOPHIL COUNT 0.5 /CUMM (0.0-0.7); ABSOLUTE GRANULOCYTE CT 7.2 /CUMM (1.4-6.5); ABSOLUTE LYMPH COUNT 1.5 /CUMM (1.2-3.4); BASOPHIL % 0.7 % (0.0-2.0); EOSINOPHIL % 5.2 % (0-5); HEMATOCRIT 31.5 % (37-47); MEAN CORPUSCULAR HGB 27.3 PG (27.0-31.0); MEAN CORPUSCULAR HGB CONC 32.1 G/DL (33.0-37.0); MEAN CORPUSCULAR VOLUME 84.9 FL (81.0-99.0); MEAN PLATELET VOLUME 10.1 FL (7.4-10.4); PLATELET COUNT 209 /CUMM (130-400); RBC DISTRIBUTION WIDTH 15.1 % (11.5-14.5); RED BLOOD CELL CT 3.71 /CUMM (4.20-5.40); WHITE BLOOD CELL COUNT 10.3 /CUMM (4.8-10.8)
--- NOTE | 2017-08-28 08:52 | PN- Housestaff ---
See Addendum Subjective Follow-up For: afib uti Subjective: patient denies sob cp abd pain. she admits to urinary burning and frequency. Review of Systems Constitutional: Reports: no symptoms. Cardiovascular: Reports: no symptoms. Respiratory: Reports: no symptoms. Genitourinary: Reports: dysuria, frequency. Objective Last 24 Hrs of Vital Signs/I&O Vital Signs Date Time Temp Pulse Resp B/P B/P Pulse O2 O2 Flow FiO2 Mean Ox Delivery Rate 08/28 1524 97.7 102 20 142/60 96 08/28 0650 97.9 110 20 138/70 93 Room Air 08/27 2300 98.3 108 20 148/62 99 Room Air 08/27 2206 110 148/62 Intake & Output 08/28 1600 08/28 0800 08/28 0000 Intake Total 300 700 Output Total 400 Balance -400 300 700 Intake, IV 100 100 Intake, Oral 200 600 Output, Urine 400 Physical Exam General Appearance: Alert, Oriented X3, Cooperative, No Acute Distress Cardiovascular: Normal S1, Normal S2, No Murmurs Lungs: Clear to Auscultation Abdomen: Normal Bowel Sounds, Soft, No Tenderness, No Hepatospenomegaly Extremities: No Clubbing, No Cyanosis Current Medications: Current Medications Sig/Cole Start time Last Medication Dose Route Stop Time Status Admin Acetaminophen 650 MG Q6P PRN 08/23 1944 AC PO Atorvastatin Calcium 80 MG 1700 08/24 1700 AC 08/27 PO 1654 Calcitriol 0.25 MCG DAILY 08/24 1000 AC 08/28 PO 0851 Ceftriaxone Sodium 1,000 MG DAILY 08/27 1000 AC 08/28 IV 0853 Diltiazem HCl 125 MG Q10H 08/25 2000 AC 08/28 Sodium Chloride 100 ML IV 0852 Febuxostat 40 MG DAILY 08/24 1530 AC 08/28 PO 0852 Heparin Sodium 25,000 UNIT Q24H 08/28 1030 AC (Porcine) IV Sodium Chloride 500 ML Hydralazine HCl 25 MG BID 08/23 220 AC 08/28 PO 0852 Hydrocodone Bitart/ 1 TAB Q6P PRN 08/23 1944 AC Acetaminophen PO Insulin Aspart 0 TIDAC 08/24 0800 AC 08/28 SC 0852 Oxycodone/ 2 TAB Q6P PRN 08/23 1944 AC Acetaminophen PO Sevelamer Carbonate 1,600 MG WM 08/24 1700 AC 08/28 PO 1212 Torsemide 20 MG DAILY 08/24 1000 AC 08/28 PO 0852 Warfarin Sodium 5 MG COUMADIN 1700 ONE 08/28 1700 AC PO 08/28 1701 Last 24 Hrs of Lab/Rayshawn Results Last 24 Hrs of Labs/Mics: Laboratory Tests 08/28/17 0637: Anion Gap 14, Estimated GFR 12 L, BUN/Creatinine Ratio 14.3, CBC w Diff NO MAN DIFF REQ, RBC 3.71 L, MCV 84.9, MCH 27.3, RDW 15.1 H, MPV 10.1, Gran % 70.0, Lymphocytes % 14.3 L, Monocytes % 9.8 H, Eosinophils % 5.2 H, Basophils % 0.7 , Absolute Granulocytes 7.2 H, Absolute Lymphocytes 1.5, Absolute Monocytes 1.0 H, Absolute Eosinophils 0.5, Absolute Basophils 0.1, PUBS MCHC 32.1 L Assessment/Plan Assessment: Assessment: Patient is a 72-year-old female with past medical history significant for paroxysmal atrial fibrillation with previous cardioversions and currently not on anticoagulation per patient's decision due to her concern of bleeding, she stopped anticoagulation after cutting herself and bleeding profusely in the past , status post cardioversion 2 (last one in 2015), diabetes not on any medications currently, diabetic and hypertensive nephropathy confirmed by biopsy , hypertension, hyperlipidemia, previous admission in January 2017 treated for RAMO, chronic kidney disease stage III with AV fistula placed, not mature or needed at this point, sinus bradycardia, atrial fibrillation, diagnosed with right external carotid artery stenosis. Presents this admission with atrial fibrillation with RVR after being seen by her wall attendant Dr. Chang. Patient has a NEW5SLHELc score of 5. Patient's last echo was 2016 and showed a restrictive filling pattern of the left ventricle, stage III diastolic dysfunction, with an EF of 65% during that admission for congestive heart failure. 1. Atrial fibrillation with RVR with rates still to 97-109 Monitor on telemetry ekgs and trops negative Cardiology on board Anticoagulation with IV heparin started again after we ruled out bleed by CT ABD PELVIS as reason for drop in Hb. guaic stools is negative. also start coumadin 5mg now. Control rate with diltiazem drip now on 12.5. we will continue nthis while she still is being treated for uti and then we will switch to oral diltizem The importance of anticoagulation therapy in the setting of atrial fibrillation was discussed at length with the patient, the benefits and risks were discussed and she is amenable to AC. Patient is not a candidate for NOACs with her elevated Cr. UTI: Patient complaining of dysuria, urinary frequency, with urinalysis showing packed WBCs. Urine culture pending. -cnt ceftriaxone 2. Hypertension Continue hydralazine 25 mg twice a day If blood pressure remains elevated can increase to 3 times a day 3. Diabetes currently diet controlled Hemoglobin A1c of 5.[address] on insulin sliding scale and Accu-Cheks 4. History of CAD with significant right external carotid artery stenosis from previous admission, has not followed up with vascular surgery outpatient Continue aspirin 81 mg daily Referred to vascular surgery for outpatient management 5. CHF Patient was found to have cardiomegaly with central vascular congestion and right pleural effusion on x-ray. continue toresemide patient not on oxygen now. 6. Elevated alkaline phosphatase of greater than 400 and GGT 192. AST and ALT are normal Limited right upper quadrant ultrasound suggests acalculus cholecystitis. hida showed no abnormality Patient has no right upper quadrant pain or any symptoms postprandially Patient denies heavy alcohol use 7. Hypokalemia Resolved 8. CKD Patient follows with Dr. Chang Creatinine near baseline 9. anemia: Secondary to chronic disease. -Epogen as per nephrology outpatient DVT prophylaxis: Currently on IV heparin Diet: Diabetic diet with salt restriction Code: Full code Problem List: 1. Rapid atrial fibrillation Pain Ratin Pain Location: na Pain Goal: Remain pain free Pain Plan: na Tomorrow's Labs & Rationales: cbc bep
--- NOTE | 2017-08-28 13:32 | PN- Cardiology ---
Subjective Subjective: No complaints. Developed UTI and is being treated for this. Objective Vital Signs and I&Os Vital Signs Date Time Temp Pulse Resp B/P B/P Pulse O2 O2 Flow FiO2 Mean Ox Delivery Rate 08/28 0650 97.9 110 20 138/70 93 Room Air 08/27 2300 98.3 108 20 148/62 99 Room Air 08/27 2206 110 148/62 08/27 1448 97.8 110 19 128/86 96 Room Air Intake & Output 08/28 1600 08/28 0800 08/28 0000 08/27 1600 08/27 0800 08/27 0000 Intake Total 300 700 300 340 580 Output Total 200 400 600 800 Balance -200 300 700 -100 -260 -220 Intake, IV 100 100 100 100 Intake, Oral 200 600 300 240 480 Number 0 0 Bowel Movements Output, Urine 200 400 600 800 Physical Exam: Well-developed, overweight elderly female in no acute distress. Vital signs: See above. HEENT: Normocephalic, atraumatic, EOMI, slightly dry mucous membranes. Neck: No JVD, right carotid bruit. Lungs: Decreased breath sounds otherwise clear. Heart: S1, S2 (irregularly, irregular) with soft (grade 1-2/6) systolic murmur. Abdomen: Soft, nontender, positive bowel sounds. Extremities: 1-2+ bilateral lower extremity edema. Current Medications: Current Medications Sig/Cole Start time Last Medication Dose Route Stop Time Status Admin Acetaminophen 650 MG Q6P PRN 08/23 1944 AC PO Atorvastatin Calcium 80 MG 1700 08/24 1700 AC 08/27 PO 1654 Calcitriol 0.25 MCG DAILY 08/24 1000 AC 08/28 PO 0851 Ceftriaxone Sodium 1,000 MG DAILY 08/27 1000 AC 08/28 IV 0853 Diltiazem HCl 125 MG Q10H 08/25 2000 r 08/28 Sodium Chloride 100 ML IV 0852 Febuxostat 40 MG DAILY 08/24 1530 AC 08/28 PO 0852 Heparin Sodium 25,000 UNIT Q24H 08/28 1030 AC (Porcine) IV Sodium Chloride 500 ML Hydralazine HCl 25 MG BID 08/23 2200 AC 08/28 PO 0852 Hydrocodone Bitart/ 1 TAB Q6P PRN 08/23 1944 AC Acetaminophen PO Insulin Aspart 0 TIDAC 08/24 08 AC 08/28 SC 0852 Oxycodone/ 2 TAB Q6P PRN 08/23 1945 AC Acetaminophen PO Sevelamer Carbonate 1,600 MG WM 08/24 1700 AC 08/28 PO 1212 Torsemide 20 MG DAILY 08/24 1000 AC 08/28 PO 0852 Warfarin Sodium 5 MG COUMADIN 1700 ONE 08/28 1700 AC PO 08/28 1701 Results Last 48 Hrs of Labs/Mics: Laboratory Tests 08/28/17 0637: Anion Gap 14, Estimated GFR 12 L, BUN/Creatinine Ratio 14.3, CBC w Diff NO MAN DIFF REQ, RBC 3.71 L, MCV 84.9, MCH 27.3, RDW 15.1 H, MPV 10.1, Gran % 70.0, Lymphocytes % 14.3 L, Monocytes % 9.8 H, Eosinophils % 5.2 H, Basophils % 0.7 , Absolute Granulocytes 7.2 H, Absolute Lymphocytes 1.5, Absolute Monocytes 1.0 H, Absolute Eosinophils 0.5, Absolute Basophils 0.1, PUBS MCHC 32.1 L 08/27/17 0620: Anion Gap 15, Estimated GFR 11 L, BUN/Creatinine Ratio 13.6, Total Bilirubin 0.8, Direct Bilirubin 0.4, AST 16, ALT 27, Alkaline Phosphatase 304 H, Total Protein 6.8, Albumin 3.4 L, CBC w Diff NO MAN DIFF REQ, RBC 3.59 L, MCV 84.2, MCH 28.0, RDW 15.5 H, MPV 9.4, Gran % 69.6, Lymphocytes % 15.8 L, Monocytes % 9.0, Eosinophils % 4.9, Basophils % 0.7, Absolute Granulocytes 7.4 H, Absolute Lymphocytes 1.7, Absolute Monocytes 0.9 H, Absolute Eosinophils 0.5, Absolute Basophils 0.1, PUBS MCHC 33.3 08/27/17 0327: Urine Color YEL, Urine Clarity CLDY H, Urine pH 6.0, Ur Specific [place] 1.020, Urine Protein 100 H, Urine Ketones NEG, Urine Nitrite POS H, Urine Bilirubin NEG, Urine Urobilinogen 0.2, Ur Leukocyte Esterase MOD H, Ur Microscopic SEDIMENT EXAMINED, Urine RBC 3-5, Urine WBC PACKD H, Urine Bacteria PACKD H, Urine Hemoglobin SMALL H, Urine Glucose NEG Assessment/Plan Assessment/Plan 72-y-o-w-f w/ hx gout, HLD, HTN, DM, CKD s/p RUE AV fistula 06/2016 w/o use necessity, ch anemia on RITO, & PAF s/p electrical CV following a CARI ~2015 w/ recurrence and successful antiarrhythmic Rx w/ chemical CV ~2017 who was in her usual state of health and being seen by nephrology (Jay Chang M.D.) when she was discovered to be in a rapid irregularly irregular rhythm and was sent to the ED for an ECG that confirmed AF w/ RVR. Fortunately, she remains asymptomatic and the ventricular response rate has improved, but now has a concomitant UTI complicating things. She was on IV heparin anticoagulation and had this held due to a significant drop in her H/H without Hemoccult positive stool or evidence of retroperitoneal hematoma by CT of the abdomen/pelvis. It was recommended that the IV heparin be restarted and this was done today. Recommendations: * Continue on telemetry. * Continue to follow-up H/H closely. * Continue to check all stools for occult blood. * Continue on IV diltiazem drip while UTI treated and then switch to oral diltiazem by the following formula: Oral daily dosage roughly equals [drip rate (mg/hr) x3 +3] x10. So, drip rate of 11 mg/hr would roughly equal a daily dosage of 360 mg/day. * Given her serum creatinine of greater than 2.5 mg/dl she is not a candidate for one of the NOACs so need to transition to warfarin when H/H. * DVT prophylaxis. Continue telemetry? Yes
[2017-08-28 15:24] VITALS: BP 142/60
[2017-08-28 20:03] LABS: PTT 52 SEC (25-37)
[2017-08-28 21:54] VITALS: BP 122/64
[2017-08-29 04:50] LABS: ABSOLUTE BASOPHIL COUNT 0.1 /CUMM (0.0-0.2); ABSOLUTE EOSINOPHIL COUNT 0.5 /CUMM (0.0-0.7); ABSOLUTE GRANULOCYTE CT 8.2 /CUMM (1.4-6.5); ABSOLUTE LYMPH COUNT 1.5 /CUMM (1.2-3.4); BASOPHIL % 0.9 % (0.0-2.0); EOSINOPHIL % 4.3 % (0-5); GRANULOCYTE % 72.8 % (42.2-75.2); HEMATOCRIT 31.3 % (37-47); MEAN CORPUSCULAR HGB 27.6 PG (27.0-31.0); MEAN CORPUSCULAR HGB CONC 32.8 G/DL (33.0-37.0); MEAN CORPUSCULAR VOLUME 84.1 FL (81.0-99.0); MEAN PLATELET VOLUME 8.6 FL (7.4-10.4); PLATELET COUNT 194 /CUMM (130-400); RBC DISTRIBUTION WIDTH 15.8 % (11.5-14.5); RED BLOOD CELL CT 3.72 /CUMM (4.20-5.40); WHITE BLOOD CELL COUNT 11.3 /CUMM (4.8-10.8)
[2017-08-29 05:01] LABS: PTT 74 SEC (25-37)
[2017-08-29 06:55] VITALS: BP 118/64
--- NOTE | 2017-08-29 08:36 | PN- Housestaff ---
Subjective Follow-up For: Afib UTI CKD Tele-Events Since Last Visit: Afib 106-122 Subjective: Patient visited today, was sitting at the bedside comfortably in no acute distress, was alert and oriented. is on 10ml/hr Cardizem with HR as noted above. Reported improved urinary symptoms. reported palpitation after walking this morning. No fever or chills, no shortness of breathing, no chest pain, no other events. Review of Systems Constitutional: Reports: see HPI. Objective Last 24 Hrs of Vital Signs/I&O Vital Signs Date Time Temp Pulse Resp B/P B/P Pulse O2 O2 Flow FiO2 Mean Ox Delivery Rate 08/29 0842 99 118/64 08/29 0800 Room Air 08/29 0655 98.1 99 18 118/64 89 Room Air 08/28 2154 98.4 110 18 122/64 87 08/28 2024 102 142/60 Intake & Output 08/29 1600 08/29 0800 08/29 0000 Intake Total 450 516 235.5 Output Total 500 625 650 Balance -50 -109 -414.5 Intake, IV 316 115.5 Intake, Oral 450 200 120 Output, Urine 500 625 650 Patient 212 lb Weight Physical Exam General Appearance: Alert, Oriented X3, Cooperative, No Acute Distress Skin: No Significant Lesion Skin Temp/Moisture Exam: Warm/Dry Sepsis Skin Exam (color): Normal for Ethnicity Cardiovascular: Normal S1, Normal S2, Irrg irreg Lungs: Clear to Auscultation, Normal Air Movement Abdomen: Soft, No Tenderness, No Hepatospenomegaly Extremities: No Edema Current Medications: Current Medications Sig/Cole Start time Last Medication Dose Route Stop Time Status Admin Acetaminophen 650 MG Q6P PRN 08/23 194 AC PO Atorvastatin Calcium 80 MG 1700 08/24 1700 AC 08/28 PO 1750 Calcitriol 0.25 MCG DAILY 08/24 1000 AC 08/29 PO 0842 Ceftriaxone Sodium 1,000 MG DAILY 08/27 1000 AC 08/29 IV 0842 Diltiazem HCl 125 MG Q10H 08/25 2000 AC 08/29 Sodium Chloride 100 ML IV 1428 Febuxostat 40 MG DAILY 08/24 1530 AC 08/29 PO 0842 Heparin Sodium 3,800 UNIT ONCE ONE 08/28 2230 DC 08/28 (Porcine) IV 08/28 2230 2220 Heparin Sodium 25,000 UNIT Q24H 08/28 1030 AC 08/29 (Porcine) IV 0743 Sodium Chloride 500 ML Hydralazine HCl 25 MG BID 08/23 2200 AC 08/29 PO 0842 Hydrocodone Bitart/ 1 TAB Q6P PRN 08/23 194 AC Acetaminophen PO Insulin Aspart 0 TIDAC 08/24 0800 AC 08/28 SC 1751 Oxycodone/ 2 TAB Q6P PRN 08/23 194 AC Acetaminophen PO Sevelamer Carbonate 1,600 MG WM 08/24 1700 AC 08/29 PO 1209 Torsemide 20 MG DAILY 08/24 1000 AC 08/29 PO 0842 Warfarin Sodium 5 MG COUMADIN 1700 ONE 08/29 1700 AC PO 08/29 1701 Warfarin Sodium 5 MG COUMADIN 1700 ONE 08/28 1700 DC 08/28 PO 08/28 170 1751 Last 24 Hrs of Lab/Rayshawn Results Last 24 Hrs of Labs/Mics: Laboratory Tests 08/29/17426: PT 12.0, INR 1.14 08/29/17426: Anion Gap 15, Estimated GFR 12 L, BUN/Creatinine Ratio 15.0, APTT 74 H, CBC w Diff NO MAN DIFF REQ, RBC 3.72 L, MCV 84.1, MCH 27.6, RDW 15.8 H, MPV 8.6, Gran % 72.8, Lymphocytes % 13.1 L, Monocytes % 8.9, Eosinophils % 4.3, Basophils % 0.9, Absolute Granulocytes 8.2 H, Absolute Lymphocytes 1.5, Absolute Monocytes 1.0 H, Absolute Eosinophils 0.5, Absolute Basophils 0.1, PUBS MCHC 32.8 L 08/28/17 1904: APTT 52 H Assessment/Plan Assessment: Assessment: Patient is a 72-year-old female with past medical history significant for paroxysmal atrial fibrillation with previous cardioversions and currently not on anticoagulation per patient's decision due to her concern of bleeding, she stopped anticoagulation after cutting herself and bleeding profusely in the past , status post cardioversion 2 (last one in 2015), diabetes not on any medications currently, diabetic and hypertensive nephropathy confirmed by biopsy , hypertension, hyperlipidemia, previous admission in January 2017 treated for RAMO, chronic kidney disease stage III with AV fistula placed, not mature or needed at this point, sinus bradycardia, atrial fibrillation, diagnosed with right external carotid artery stenosis. Presents this admission with atrial fibrillation with RVR after being seen by her stationary fireman Dr. Chang. Patient has a [id number] score of 5. Patient's last echo was 2016 and showed a restrictive filling pattern of the left ventricle, stage III diastolic dysfunction, with an EF of 65% during that admission for congestive heart failure. Atrial fibrillation with RVR Monitor on telemetry ekgs and trops negative Cardiology on board Anticoagulation with IV heparin started again after we ruled out bleed by CT ABD PELVIS as reason for drop in Hb. guaic stools is negative. We Continue coumadin 5mg. Control rate with diltiazem drip now on 10. we will continue nthis while she still is being treated for uti and then we will switch to oral diltizem The importance of anticoagulation therapy in the setting of atrial fibrillation was discussed at length with the patient, the benefits and risks were discussed and she is amenable to AC. Patient is not a candidate for NOACs with her elevated Cr. - Cardizem drip, till UTI resolves - IV heparin - Warfarin UTI: Patient complaining of dysuria, urinary frequency, with urinalysis showing packed WBCs. Urine culture pending. -cnt ceftriaxone day 4 today Hypertension Continue hydralazine 25 mg twice a day If blood pressure remains elevated can increase to 3 times a day DM Diabetes currently diet controlled Hemoglobin A1c of 5.[address] on insulin sliding scale and Accu-Cheks History of CAD with significant right external carotid artery stenosis from previous admission , has not followed up with vascular surgery outpatient Continue aspirin 81 mg daily Referred to vascular surgery for outpatient management CHF Patient was found to have cardiomegaly with central vascular congestion and right pleural effusion on x-ray. continue toresemide patient not on oxygen now. Elevated ALKP Elevated alkaline phosphatase of greater than 400 and GGT 192. AST and ALT are normal Limited right upper quadrant ultrasound suggests acalculus cholecystitis. hida showed no abnormality Patient has no right upper quadrant pain or any symptoms postprandially Patient denies heavy alcohol use Hypokalemia Resolved CKD Patient follows with Dr. Chang Creatinine near baseline - called Nephro consult anemia: Most likely Secondary to chronic disease. -Epogen as per nephrology outpatient DVT prophylaxis: Currently on IV heparin Diet: Diabetic diet with salt restriction Code: Full code Problem List: 1. Rapid atrial fibrillation 2. Chronic kidney disease (CKD) 3. UTI (urinary tract infection) Pain Ratin Pain Location: None Pain Goal: Pain 4 or less Pain Plan: Continue currnet plan Tomorrow's Labs & Rationales: RED BEP
--- NOTE | 2017-08-29 14:39 | PN- Att Addend ---
Attending MD Review Statement Attending Statement Attending MD Statement: examined this patient, discuss w/resident/PA/LAY OUT MAKER, agreed w/resident/PA/LAY OUT MAKER, discussed with family, reviewed EMR data (avail), discussed w/ nursing, discussed w/case mgmt Attending Assessment/Plan: Laboratory Tests 08/29/17426: PT 12.0, INR 1.14 08/29/17426: Anion Gap 15, Estimated GFR 12 L, BUN/Creatinine Ratio 15.0, APTT 74 H, CBC w Diff NO MAN DIFF REQ, RBC 3.72 L, MCV 84.1, MCH 27.6, RDW 15.8 H, MPV 8.6, Gran % 72.8, Lymphocytes % 13.1 L, Monocytes % 8.9, Eosinophils % 4.3, Basophils % 0.9, Absolute Granulocytes 8.2 H, Absolute Lymphocytes 1.5, Absolute Monocytes 1.0 H, Absolute Eosinophils 0.5, Absolute Basophils 0.1, PUBS MCHC 32.8 L 08/28/17 1904: APTT 52 H Vital Signs Date Time Temp Pulse Resp B/P B/P Pulse O2 O2 Flow FiO2 Mean Ox Delivery Rate 08/29 0842 99 118/64 08/29 0800 Room Air 08/29 0655 98.1 99 18 118/64 89 Room Air 08/28 2154 98.4 110 18 122/64 87 08/284 102 142/60 08/28 1524 97.7 102 20 142/60 96 72 yr old female with pmh of p afib not on AC, cardioversion times 2, CKD-5 with AV fistula but not on HD , HTN, HLD,DM- not on meds, Stage 3 diastolic chf admitted with afib with rvr. Afib with RVR- cont on cardizem drip. cardiology following the pt. Currently on heparin drip and started on coumadin . I had lengthy discussion wiht pt about anticoagulation and its risks and benefits. hb staying stable. on toresemide 20mg daily. INcreased LFTs- chelsey ALP and GGT, RUQ ultrasound done reveals acalculous cholecystisis ? and GB sludge. HIDA scan negative. Pt on exam has no RUQ tenderness. Gout- cont on uloric. CKD- stage 5. 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 will put in nephrology consult . cont to monitor on telemetry.
[2017-08-29 15:34] VITALS: BP 110/70
--- NOTE | 2017-08-29 17:23 | PN- Cardiology ---
Subjective Subjective: No complaints. The ventricular response to her atrial fibrillation remains too rapid on present regimen. Objective Vital Signs and I&Os Vital Signs Date Time Temp Pulse Resp B/P B/P Pulse O2 O2 Flow FiO2 Mean Ox Delivery Rate 08/29 1534 98.3 87 18 110/70 87 08/29 0842 99 118/64 08/29 0800 Room Air 08/29 0655 98.1 99 18 118/64 89 Room Air 08/28 2154 98.4 110 18 122/64 87 08/28 2024 102 142/60 Intake & Output 08/29 1600 08/29 0800 08/29 0000 08/28 1600 08/28 0800 08/28 0000 Intake Total 450 516 235.5 300 700 Output Total 500 625 650 400 Balance -50 -109 -414.5 -400 300 700 Intake, IV 316 115.5 100 100 Intake, Oral 450 200 120 200 600 Output, Urine 500 625 650 400 Patient 212 lb Weight Physical Exam: Well-developed, overweight elderly female in no acute distress. Vital signs: See above. HEENT: Normocephalic, atraumatic, EOMI, slightly dry mucous membranes. Neck: No JVD, right carotid bruit. Lungs: Decreased breath sounds otherwise clear. Heart: S1, S2 (irregularly, irregular) with soft (grade 1-2/6) systolic murmur. Abdomen: Soft, nontender, positive bowel sounds. Extremities: 1-2+ bilateral lower extremity edema. Current Medications: Current Medications Sig/Cole Start time Last Medication Dose Route Stop Time Status Admin Acetaminophen 650 MG Q6P PRN 08/23 1945 AC PO Atorvastatin Calcium 80 MG 1700 08/24 1700 AC 08/28 PO 1750 Calcitriol 0.25 MCG DAILY 08/24 1000 AC 08/29 PO 0842 Ceftriaxone Sodium 1,000 MG DAILY 08/27 1000 AC 08/29 IV 0842 Diltiazem HCl 125 MG Q10H 08/25 2000 AC 08/29 Sodium Chloride 100 ML IV 1428 Febuxostat 40 MG DAILY 08/24 1530 AC 08/29 PO 0842 Heparin Sodium 3,800 UNIT ONCE ONE 08/28 2230 DC 08/28 (Porcine) IV 08/28 2231 2220 Heparin Sodium 25,000 UNIT Q24H 08/28 1030 AC 08/29 (Porcine) IV 0743 Sodium Chloride 500 ML Hydralazine HCl 25 MG BID 08/23 2200 AC 08/29 PO 0842 Hydrocodone Bitart/ 1 TAB Q6P PRN 08/23 1944 AC Acetaminophen PO Insulin Aspart 0 TIDAC 08/24 0800 AC 08/28 SC 1751 Oxycodone/ 2 TAB Q6P PRN 08/23 1944 AC Acetaminophen PO Sevelamer Carbonate 1,600 MG WM 08/24 1700 AC 08/29 PO 1209 Torsemide 20 MG DAILY 08/24 1000 AC 08/29 PO 0842 Warfarin Sodium 5 MG COUMADIN 1700 ONE 08/29 1700 DC PO 08/29 170 Results Last 48 Hrs of Labs/Mics: Laboratory Tests 08/29/17426: PT 12.0, INR 1.14 08/29/17426: Anion Gap 15, Estimated GFR 12 L, BUN/Creatinine Ratio 15.0, APTT 74 H, CBC w Diff NO MAN DIFF REQ, RBC 3.72 L, MCV 84.1, MCH 27.6, RDW 15.8 H, MPV 8.6, Gran % 72.8, Lymphocytes % 13.1 L, Monocytes % 8.9, Eosinophils % 4.3, Basophils % 0.9, Absolute Granulocytes 8.2 H, Absolute Lymphocytes 1.5, Absolute Monocytes 1.0 H, Absolute Eosinophils 0.5, Absolute Basophils 0.1, PUBS MCHC 32.8 L 08/28/17 1904: APTT 52 H 08/28/17 0637: Anion Gap 14, Estimated GFR 12 L, BUN/Creatinine Ratio 14.3, CBC w Diff NO MAN DIFF REQ, RBC 3.71 L, MCV 84.9, MCH 27.3, RDW 15.1 H, MPV 10.1, Gran % 70.0, Lymphocytes % 14.3 L, Monocytes % 9.8 H, Eosinophils % 5.2 H, Basophils % 0.7 , Absolute Granulocytes 7.2 H, Absolute Lymphocytes 1.5, Absolute Monocytes 1.0 H, Absolute Eosinophils 0.5, Absolute Basophils 0.1, PUBS MCHC 32.1 L Assessment/Plan Assessment/Plan 72-y-o-w-f w/ hx gout, HLD, HTN, DM, CKD s/p RUE AV fistula 06/2016 w/o use necessity, ch anemia on RITO, & PAF s/p electrical CV following a CARI ~2016 w/ recurrence and successful antiarrhythmic Rx w/ chemical CV ~2017 who was in her usual state of health and being seen by nephrology (Jay Chang M.D.) when she was discovered to be in a rapid irregularly irregular rhythm and was sent to the ED for an ECG that confirmed AF w/ RVR. Fortunately, she remains asymptomatic and the ventricular response rate has improved, but now has a concomitant UTI complicating things. She was on IV heparin anticoagulation and had this held due to a significant drop in her H/H without Hemoccult positive stool or evidence of retroperitoneal hematoma by CT of the abdomen/pelvis. It was recommended that the IV heparin be restarted and this was done today. Recommendations: * Continue on telemetry. * Continue to follow-up H/H closely. * Continue to check all stools for occult blood. * Continue on IV diltiazem drip while UTI treated and then switch to oral diltiazem by the following formula: Oral daily dosage roughly equals [drip rate (mg/hr) x3 +3] x10. So, drip rate of 11 mg/hr would roughly equal a daily dosage of 360 mg/day. * Given her serum creatinine of greater than 2.5 mg/dl she is not a candidate for one of the NOACs so need to transition to warfarin when H/H. * DVT prophylaxis. Continue telemetry? Yes
[2017-08-29 17:52] LABS: PTT 77 SEC (25-37)
[2017-08-29 23:17] VITALS: BP 158/78
[2017-08-30 06:10] LABS: ABSOLUTE BASOPHIL COUNT 0.2 /CUMM (0.0-0.2); ABSOLUTE EOSINOPHIL COUNT 0.4 /CUMM (0.0-0.7); ABSOLUTE GRANULOCYTE CT 7.3 /CUMM (1.4-6.5); ABSOLUTE LYMPH COUNT 1.6 /CUMM (1.2-3.4); ABSOLUTE MONOCYTE COUNT 0.9 /CUMM (0.10-0.60); BASOPHIL % 1.7 % (0.0-2.0); EOSINOPHIL % 4.3 % (0-5); GRANULOCYTE % 69.9 % (42.2-75.2); HEMATOCRIT 30.4 % (37-47); MEAN CORPUSCULAR HGB 27.8 PG (27.0-31.0); MEAN CORPUSCULAR VOLUME 84.3 FL (81.0-99.0); MEAN PLATELET VOLUME 9.3 FL (7.4-10.4); PLATELET COUNT 199 /CUMM (130-400); RBC DISTRIBUTION WIDTH 15.1 % (11.5-14.5); WHITE BLOOD CELL COUNT 10.4 /CUMM (4.8-10.8)
[2017-08-30 06:15] LABS: PTT 83 SEC (25-37)
[2017-08-30 06:57] VITALS: BP 128/68
--- NOTE | 2017-08-30 07:37 | PN- Housestaff ---
Ganesh Forde MD,Ami 08/30/17 0737: Subjective Follow-up For: Afib UTI CKD Tele-Events Since Last Visit: Afib 110-120 , 140 when went to [facility] Subjective: Patient visited today, was lying comfortably in no acute distress, was alert and oriented. is on 12.5ml/hr Cardizem with HR as noted above. Reported improved urinary symptoms. Reported having PND, consulted regarding GERD No fever or chills, no shortness of breathing, no chest pain, no other events. CXR oredered which showed pleural effusion, would consult nephrology regarding increasing the diuretics in setting of increased cr. Review of Systems Constitutional: Reports: see HPI. Objective Last 24 Hrs of Vital Signs/I&O Vital Signs Date Time Temp Pulse Resp B/P B/P Pulse O2 O2 Flow FiO2 Mean Ox Delivery Rate 08/30 1035 114 128/68 08/30 0800 91 Room Air 08/30 0657 98.0 106 18 128/68 91 Room Air 08/30 0000 90 Room Air 08/29 2317 98.3 117 16 158/78 90 Room Air 08/29 2110 102 152/80 08/29 1900 18 90 Room Air 08/29 1534 98.3 87 18 110/70 87 Intake & Output 08/30 1600 08/30 0800 08/30 0000 Intake Total 240 650 Output Total 600 Balance -360 650 Intake, Oral 240 650 Number 0 Bowel Movements Output, Urine 600 Physical Exam General Appearance: Alert, Oriented X3, Cooperative, No Acute Distress Skin: No Significant Lesion Skin Temp/Moisture Exam: Warm/Dry Sepsis Skin Exam (color): Normal for Ethnicity HEENT: Atraumatic, PERRLA, Mucous Membr. moist/pink Neck: No JVD Cardiovascular: Normal S1, Normal S2, irregular irreg Lungs: Clear to Auscultation Abdomen: Soft, No Tenderness Extremities: bilateral lower leg edema Current Medications: Current Medications Sig/Cole Start time Last Medication Dose Route Stop Time Status Admin Acetaminophen 650 MG Q6P PRN 08/23 194 AC PO Atorvastatin Calcium 80 MG 1700 08/24 1700 AC 08/29 PO 1745 Calcitriol 0.25 MCG DAILY 08/24 1000 AC 08/30 PO 0921 Ceftriaxone Sodium 1,000 MG DAILY 08/27 1000 DC 08/30 IV 0922 Diltiazem HCl 125 MG Q10H 08/30 1200 AC 08/30 Sodium Chloride 100 ML IV 1158 Diltiazem HCl 125 MG Q10H 08/25 2000 DC 08/30 Sodium Chloride 100 ML IV 0010 Febuxostat 40 MG DAILY 08/24 1530 AC 08/30 PO 0921 Heparin Sodium 25,000 UNIT Q24H 08/28 1030 AC 08/30 (Porcine) IV 0039 Sodium Chloride 500 ML Hydralazine HCl 25 MG BID 08/23 2200 AC 08/30 PO 1035 Hydrocodone Bitart/ 1 TAB Q6P PRN 08/23 1945 AC Acetaminophen PO Insulin Aspart 0 TIDAC 08/24 0800 AC 08/28 SC 1751 Metoprolol Tartrate 25 MG BID 08/30 1115 AC PO Oxycodone/ 2 TAB Q6P PRN 08/23 1945 AC Acetaminophen PO Sevelamer Carbonate 1,600 MG WM 08/24 1700 AC 08/30 PO 0821 Torsemide 20 MG DAILY 08/24 1000 AC 08/30 PO 0921 Warfarin Sodium 5 MG COUMADIN 1700 ONE 08/29 1700 DC 08/29 PO 08/29 1701 1745 Last 24 Hrs of Lab/Rayshawn Results Last 24 Hrs of Labs/Mics: Laboratory Tests 08/30/17 0530: Anion Gap 16, Estimated GFR 13 L, BUN/Creatinine Ratio 16.0, [id number] Pept 76359 H, PT 12.8 H, INR 1.22 H, APTT 83 H, CBC w Diff NO MAN DIFF REQ, RBC 3.60 L, MCV 84.3, MCH 27.8, RDW 15.1 H, MPV 9.3, Gran % 69.9, Lymphocytes % 15.6 L, Monocytes % 8.5, Eosinophils % 4.3, Basophils % 1.7, Absolute Granulocytes 7.3 H, Absolute Lymphocytes 1.6, Absolute Monocytes 0.9 H, Absolute Eosinophils 0.4, Absolute Basophils 0.2, PUBS MCHC 33.0 08/29/17 1720: APTT 77 H Assessment/Plan Assessment: Assessment: Patient is a 72-year-old female with past medical history significant for paroxysmal atrial fibrillation with previous cardioversions and currently not on anticoagulation per patient's decision due to her concern of bleeding, she stopped anticoagulation after cutting herself and bleeding profusely in the past , status post cardioversion 2 (last one in 2015), diabetes not on any medications currently, diabetic and hypertensive nephropathy confirmed by biopsy , hypertension, hyperlipidemia, previous admission in January 2017 treated for RAMO, chronic kidney disease stage III with AV fistula placed, not mature or needed at this point, sinus bradycardia, atrial fibrillation, diagnosed with right external carotid artery stenosis. Presents this admission with atrial fibrillation with RVR after being seen by her decaler Dr. Chang. Patient has a [id number] score of 5. Patient's last echo was 2016 and showed a restrictive filling pattern of the left ventricle, stage III diastolic dysfunction, with an EF of 65% during that admission for congestive heart failure. Atrial fibrillation with RVR Monitor on telemetry ekgs and trops negative Cardiology on board Anticoagulation with IV heparin started again after we ruled out bleed by CT ABD PELVIS as reason for drop in Hb. guaic stools is negative. We Continue coumadin 5mg. Control rate with diltiazem drip now on 10. we will continue nthis while she still is being treated for uti and then we will switch to oral diltizem The importance of anticoagulation therapy in the setting of atrial fibrillation was discussed at length with the patient, the benefits and risks were discussed and she is amenable to AC. Patient is not a candidate for NOACs with her elevated Cr. - Cardizem drip, till UTI resolves considering increased HR associated with infection - Metoprolol added BID - IV heparin - Warfarin dose 3 today UTI: Patient complaining of dysuria, urinary frequency, with urinalysis showing packed WBCs. Urine culture pending. -cnt ceftriaxone 4 days completed, will DC today Hypertension Continue hydralazine 25 mg twice a day If blood pressure remains elevated can increase to 3 times a day DM Diabetes currently diet controlled Hemoglobin A1c of 5.[address] on insulin sliding scale and Accu-Cheks History of CAD with significant right external carotid artery stenosis from previous admission , has not followed up with vascular surgery outpatient Continue aspirin 81 mg daily Referred to vascular surgery for outpatient management CHF Patient was found to have cardiomegaly with central vascular congestion and right pleural effusion on x-ray. continue toresemide patient not on oxygen now. CXR showed pleural effusion. - Consult nephrology regarding increasing diuretics - Stop trosemide - Lasix 60 IV daily Elevated ALKP Elevated alkaline phosphatase of greater than 400 and GGT 192. AST and ALT are normal Limited right upper quadrant ultrasound suggests acalculus cholecystitis. hida showed no abnormality Patient has no right upper quadrant pain or any symptoms postprandially Patient denies heavy alcohol use Hypokalemia Resolved CKD Patient follows with Dr. Chang Creatinine near baseline - Follow Neph recommendations anemia: Most likely Secondary to chronic disease. -Epogen as per nephrology outpatient DVT prophylaxis: Currently on IV heparin Diet: Diabetic diet with salt restriction Code: Full code Problem List: 1. UTI (urinary tract infection) 2. Rapid atrial fibrillation Pain Ratin Pain Location: None Pain Goal: Pain 4 or less Pain Plan: Continue current plan Tomorrow's Labs & Rationales: CBC BEP Sumit Meza 08/30/17 1412: Attending MD Review Statement Attending Statement Attending MD Statement: examined this patient, discuss w/resident/PA/ICE CREAM MAKER, agreed w/resident/PA/ICE CREAM MAKER, reviewed EMR data (avail), discussed with nursing, discussed with case mgmt Attending Assessment/Plan: Fluid overload secondary to CHF and Afib with RVR- CXR done today shows. "New right effusion and basal opacities. Favor edema." nephrology input appreciated and pt will be started on iv lasix 60mg daily and we will monitor her I & O strictly and also her daily wt and would monitor her creatinine closely. dc torsemide. Afib with RVR- cont on cardizem drip and add metoprolol. appreciated cardiology input. UTI- dc abx today. got 4 days of ceftriaxone. CKD stage 5- monitor closely given iv diuresis being started. nephrology on board.
[2017-08-30 10:02] LABS: PT 12.8 SEC (9.4-12.5)
--- NOTE | 2017-08-30 10:44 | RADIOLOGY REPORT ---
EXAMINATION: XR PORTABLE CHEST CLINICAL INFORMATION: Desaturation. Shortness of breath. COMPARISON: 08/25/2017 and priors TECHNIQUE: Portable portable 80 degrees upright (time stamp 10:06 AM) view of the chest was obtained. FINDINGS: The patient is rotated. Grossly stable heart and mediastinum. New opacities at the bases right more than left. There is a right effusion and bibasilar consolidation. Given prominence of the central pulmonary vasculature interstitial edema is favored. Vascular calculations in the upper extremities. IMPRESSION: New right effusion and basal opacities. Favor edema.
--- NOTE | 2017-08-30 11:42 | PN- Cardiology ---
Subjective Subjective: States that her lower extremity edema has gotten worse. Denies chest discomfort, palpitations, or shortness of breath. Remains in atrial fibrillation with ventricular response rates consistently greater than 100 bpm. Objective Vital Signs and I&Os Vital Signs Date Time Temp Pulse Resp B/P B/P Pulse O2 O2 Flow FiO2 Mean Ox Delivery Rate 08/30 1035 114 128/68 08/30 0800 91 Room Air 08/30 0657 98.0 106 18 128/68 91 Room Air 08/30 0000 90 Room Air 08/29 2317 98.3 117 16 158/78 90 Room Air 08/29 2110 102 152/80 08/29 1900 18 90 Room Air 08/29 1534 98.3 87 18 110/70 87 Intake & Output 08/30 1600 08/30 0800 08/30 0000 08/29 1600 08/29 0800 08/29 0000 Intake Total 240 650 450 516 235.5 Output Total 600 500 625 650 Balance -360 650 -50 -109 -414.5 Intake, IV 316 115.5 Intake, Oral 240 650 450 200 120 Number 0 Bowel Movements Output, Urine 600 500 625 650 Patient 212 lb Weight Physical Exam: Well-developed, overweight elderly female in no acute distress. Vital signs: See above. HEENT: Normocephalic, atraumatic, EOMI, slightly dry mucous membranes. Neck: No JVD, right carotid bruit. Lungs: Decreased breath sounds otherwise clear. Heart: S1, S2 (irregularly, irregular) with soft (grade 1-2/6) systolic murmur. Abdomen: Soft, nontender, positive bowel sounds. Extremities: 1-2+ bilateral lower extremity edema. Current Medications: Current Medications Sig/Cole Start time Last Medication Dose Route Stop Time Status Admin Acetaminophen 650 MG Q6P PRN 08/23 194 AC PO Atorvastatin Calcium 80 MG 1700 08/24 1700 AC 08/29 PO 1745 Calcitriol 0.25 MCG DAILY 08/24 1000 AC 08/30 PO 09 Ceftriaxone Sodium 1,000 MG DAILY 08/27 1000 DC 08/30 IV 0922 Diltiazem HCl 125 MG Q10H 08/30 1200 AC Sodium Chloride 100 ML IV Diltiazem HCl 125 MG Q10H 08/25 2000 DC 08/30 Sodium Chloride 100 ML IV 0010 Febuxostat 40 MG DAILY 08/24 1530 AC 08/30 PO 0921 Heparin Sodium 25,000 UNIT Q24H 08/28 1030 AC 08/30 (Porcine) IV 0039 Sodium Chloride 500 ML Hydralazine HCl 25 MG BID 08/23 2200 AC 08/30 PO 1035 Hydrocodone Bitart/ 1 TAB Q6P PRN 08/23 194 AC Acetaminophen PO Insulin Aspart 0 TIDAC 08/24 0800 AC 08/28 SC 1751 Metoprolol Tartrate 25 MG BID 08/30 1115 AC PO Oxycodone/ 2 TAB Q6P PRN 08/23 194 AC Acetaminophen PO Sevelamer Carbonate 1,600 MG WM 08/24 1700 AC 08/30 PO 0821 Torsemide 20 MG DAILY 08/24 1000 AC 08/30 PO 0921 Warfarin Sodium 5 MG COUMADIN 1700 ONE 08/29 1700 DC 08/29 PO 08/29 1701 1745 Results Last 48 Hrs of Labs/Mics: Laboratory Tests 08/30/17 0530: Anion Gap 16, Estimated GFR 13 L, BUN/Creatinine Ratio 16.0, [id number]-A-Hasewmguxbf Pept Pending, PT 12.8 H, INR 1.22 H, APTT 83 H, CBC w Diff NO MAN DIFF REQ, RBC 3.60 L, MCV 84.3, MCH 27.8, RDW 15.1 H, MPV 9.3, Gran % 69.9, Lymphocytes % 15.6 L, Monocytes % 8.5, Eosinophils % 4.3, Basophils % 1.7, Absolute Granulocytes 7.3 H, Absolute Lymphocytes 1.6, Absolute Monocytes 0.9 H, Absolute Eosinophils 0.4, Absolute Basophils 0.2, PUBS MCHC 33.0 08/29/17 1720: APTT 77 H 08/29/17 0427: PT 12.0, INR 1.14 08/29/17 0427: Anion Gap 15, Estimated GFR 12 L, BUN/Creatinine Ratio 15.0, APTT 74 H, CBC w Diff NO MAN DIFF REQ, RBC 3.72 L, MCV 84.1, MCH 27.6, RDW 15.8 H, MPV 8.6, Gran % 72.8, Lymphocytes % 13.1 L, Monocytes % 8.9, Eosinophils % 4.3, Basophils % 0.9, Absolute Granulocytes 8.2 H, Absolute Lymphocytes 1.5, Absolute Monocytes 1.0 H, Absolute Eosinophils 0.5, Absolute Basophils 0.1, PUBS MCHC 32.8 L 08/28/17 1904: APTT 52 H Recent Imaging Studies: CXR 08/30/2017: The patient is rotated. Grossly stable heart and mediastinum. New opacities at the bases right more than left. There is a right effusion and bibasilar consolidation. Given prominence of the central pulmonary vasculature interstitial edema is favored. Vascular calculations in the upper extremities. Assessment/Plan Assessment/Plan [id number] w/ hx gout, HLD, HTN, DM, CKD s/p RUE AV fistula 06/2016 w/o use necessity, ch anemia on RITO, & PAF s/p electrical CV following a CARI ~2015 w/ recurrence and successful antiarrhythmic Rx w/ chemical CV ~2016 who was in her usual state of health and being seen by nephrology (Jay Chang M.D.) when she was discovered to be in a rapid irregularly irregular rhythm and was sent to the ED for an ECG that confirmed AF w/ RVR. Fortunately, she remains asymptomatic, but her CXR from earlier today (2017) reveals evidence of vascular congestion. In addition, the ventricular response to her atrial fibrillation remains too rapid. She is also being treated for a UTI. She was on IV heparin anticoagulation and had this held due to a significant drop in her H/H on 08/25/2017 w/o Hemoccult positive stool or evidence of retroperitoneal hematoma by CT of the abdomen/pelvis performed on 08/26/2017. It was recommended that anticoagulation be restarted and this was done. Recommendations: * Continue on telemetry. * Continue to follow-up H/H closely. * Continue to check all stools for occult blood. * Continue on IV diltiazem drip while UTI being treated and then switch to oral diltiazem by the following formula: Oral daily dosage roughly equals [drip rate (mg/hr) x3 +3] x10. So, drip rate of 11 mg/hr would roughly equal a daily dosage of 360 mg/day. * Add low-dose beta matt to help improve the ventricular response to her atrial fibrillation. * Given her serum creatinine of greater than 2.5 mg/dl she is not a candidate for one of the NOACs so need to transition to warfarin. * Nephrology consultation. * DVT prophylaxis. Continue telemetry? Yes
--- NOTE | 2017-08-30 12:08 | Cons- Nephrology ---
General Information and HPI Consulting Request Date of Consult: 08/30/17 Requested By: Derrick BARBOUR,Sumit Gonzáles Reason for Consult: RAMO on CKD Source of Information: patient, old records Exam Limitations: no limitations History of Present Illness: The patient is a 72-year-old woman with a past medical history most significant for his 5 chronic kidney disease baseline creatinine in the low threes status post AV fistula creationnot on dialysis, diabetes, hypertension and A. fib status post electric and chemical cardioversion therapy who initially presented on 08/23 with A. fib with RVR. The patient had been seen Jay Chang MD in the office when he noted that she had a very irregular and fast heart rate for which she was referred to the emergency room. On presentation, blood pressure 170/106 a rate of 124. She was started on IV diltiazem as well as anticoagulation. Blood pressure dropped to 110/70 the next day on 08/24. Course also complicated by UTI. During this auscultation her creatinine went up from 3.2 up to 3.9 and since come down to 3.5. Relative hypotension as above. No contrast studies. No significant nephrotoxins. On antibiotics without any significant peripheral eosinophilia. She underwent a right upper quadrant ultrasound which demonstrated no issue with the right kidney which was 11.8 cm. In speaking to the patient, she notes that she has developed significant edema since being in house. Her weight is not being measured. She has been on her home dose of torsemide 20 mg daily. Should be noted that chest x-ray has a new R effusion and central pulm vascular interstitial edema. Should be noted that at baseline the patient has no uremic symptoms. Allergies/Medications Allergies: Coded Allergies: sitagliptin (From [employer]) (Severe, THROAT CLOSURE 02/05/17) Home Med List: Aspirin (Aspirin*) 81 MG TAB.CHEW 1 TAB PO DAILY HEART HEALTH (Reported) Calcitriol 0.25 MCG CAPSULE 1 CAP PO DAILY SUPPLEMENT (Reported) Febuxostat (Uloric) 40 MG TABLET 1 TAB PO DAILY UNKNOWN (Reported) Hydralazine HCl 25 MG TABLET 1 TAB PO DAILY BP (Reported) Rosuvastatin Calcium (Crestor) 10 MG TABLET 1 TAB PO DAILY HYPERLIPIDEMIA Sevelamer Carbonate (Renvela) 800 MG TABLET 2 TAB PO WM CKD Torsemide 20 MG TABLET 1 TAB PO DAILY WATER RETENTION (Reported) Current Medications: Current Medications Sig/Cole Start time Last Medication Dose Route Stop Time Status Admin Acetaminophen 650 MG Q6P PRN 08/23 1945 AC PO Atorvastatin Calcium 80 MG 1700 08/24 1700 AC 08/29 PO 1745 Calcitriol 0.25 MCG DAILY 08/24 1000 AC 08/30 PO 0921 Ceftriaxone Sodium 1,000 MG DAILY 08/27 1000 DC 08/30 IV 0922 Diltiazem HCl 125 MG Q10H 08/30 1200 AC Sodium Chloride 100 ML IV Diltiazem HCl 125 MG Q10H 08/25 2000 DC 08/30 Sodium Chloride 100 ML IV 0010 Febuxostat 40 MG DAILY 08/24 1530 AC 08/30 PO 0921 Heparin Sodium 25,000 UNIT Q24H 08/28 1030 AC 08/30 (Porcine) IV 0039 Sodium Chloride 500 ML Hydralazine HCl 25 MG BID 08/23 2200 AC 08/30 PO 1035 Hydrocodone Bitart/ 1 TAB Q6P PRN 08/23 1945 AC Acetaminophen PO Insulin Aspart 0 TIDAC 08/24 0800 AC 08/28 SC 1751 Metoprolol Tartrate 25 MG BID 08/30 1115 AC PO Oxycodone/ 2 TAB Q6P PRN 08/23 1945 AC Acetaminophen PO Sevelamer Carbonate 1,600 MG WM 08/24 1700 AC 08/30 PO 0821 Torsemide 20 MG DAILY 08/24 1000 AC 08/30 PO 0921 Warfarin Sodium 5 MG COUMADIN 1700 ONE 08/29 1700 DC 08/29 PO 08/29 1701 1745 Review of Systems Review of Systems: Complete 14 point ROS neg except as per HPI Past History Travel History Traveled to [place] past 21 day No Medical History Neurological: NONE EENT: NONE Cardiovascular: AFIB (refuses/ not started on antico), aflutter, hypertension Respiratory: NONE Gastrointestinal: NONE Hepatic: NONE Renal: CKD biopsy-proven diabetic/hypertensive nephropathy Musculoskeletal: gout Psychiatric: NONE Endocrine: diabetes, she reports that her diabetes has been referred for roughly 10 years. She denies any retinopathy. Blood Disorders: anemia Cancer(s): NONE CREDIT OR LOANS OFFICER/Reproductive: NONE Surgical History Surgical History: non-contributory, 2 YEARS AGO (DR MEEHAN) BURNSIDE Psychosocial History Where Do You Live? Home Smoking Status: Unknown If Ever Smoked Exam & Diagnostic Data Vital Signs and I&O Vital Signs Date Time Temp Pulse Resp B/P B/P Pulse O2 O2 Flow FiO2 Mean Ox Delivery Rate 08/30 1035 114 128/68 08/30 0800 91 Room Air 08/30 0657 98.0 106 18 128/68 91 Room Air 08/30 0000 90 Room Air 08/29 2317 98.3 117 16 158/78 90 Room Air 08/29 2110 102 152/80 08/29 1900 18 90 Room Air 08/29 1534 98.3 87 18 110/70 87 Intake & Output 08/30 1600 08/30 0400 08/29 1600 08/29 0400 08/28 1600 08/28 0400 Intake Total 240 650 966 235.5 300 700 Output Total 600 1125 650 400 Balance -360 650 -159 -414.5 -100 700 Intake, IV 316 115.5 100 100 Intake, Oral 240 650 650 120 200 600 Number 0 Bowel Movements Output, Urine 600 1125 650 400 Patient 212 lb Weight Physical Exam: Gen - NAD Head - NCAT Eyes - anicteric sclera, EOMI Neck - supple, JVP visible CV - RRR, no m/r/g Chest - scant L basilar crackles, no wheezes/rhonchi Abd - soft, NTND Upper ext - no edema, warm Lower ext - trace-1+ edema, warm Skin - no rash or jaundice Neuro - AOX3, grossly nonfocal Results Pertinent Lab Results: Laboratory Tests 08/30 08/29 08/29 0530 1720 0427 Chemistry Sodium (137 - 145 mmol/L) 144 Potassium (3.5 - 5.1 mmol/L) 4.1 Chloride (98 - 107 mmol/L) 107 Carbon Dioxide (22 - 30 mmol/L) 21 L Anion Gap (5 - 16) 16 BUN (7 - 17 mg/dL) 56 H Creatinine (0.5 - 1.0 mg/dL) 3.5 H Estimated GFR (>60 ml/min) 13 L BUN/Creatinine Ratio (7 - 25 %) 16.0 Ggl-Q-Zrgegnlodzn Pept (<125 pg/mL) 99067 H Coagulation PT (9.4 - 12.5 SEC) 12.8 H 12.0 INR (0.90 - 1.19) 1.22 H 1.14 APTT (25 - 37 SEC) 83 H 77 H Hematology CBC w Diff NO MAN DIFF REQ WBC (4.8 - 10.8 /CUMM) 10.4 RBC (4.20 - 5.40 /CUMM) 3.60 L Hgb (12.0 - 16.0 G/DL) 10.0 L Hct (37 - 47 %) 30.4 L MCV (81.0 - 99.0 FL) 84.3 MCH (27.0 - 31.0 PG) 27.8 RDW (11.5 - 14.5 %) 15.1 H Plt Count (130 - 400 /CUMM) 199 MPV (7.4 - 10.4 FL) 9.3 Gran % (42.2 - 75.2 %) 69.9 Lymphocytes % (20.5 - 51.1 %) 15.6 L Monocytes % (1.7 - 9.3 %) 8.5 Eosinophils % (0 - 5 %) 4.3 Basophils % (0.0 - 2.0 %) 1.7 Absolute Granulocytes (1.4 - 6.5 /CUMM) 7.3 H Absolute Lymphocytes (1.2 - 3.4 /CUMM) 1.6 Absolute Monocytes (0.10 - 0.60 /CUMM) 0.9 H Absolute Eosinophils (0.0 - 0.7 /CUMM) 0.4 Absolute Basophils (0.0 - 0.2 /CUMM) 0.2 PUBS MCHC (33.0 - 37.0 G/DL) 33.0 08/29 08/28 0427 1904 Chemistry Sodium (137 - 145 mmol/L) 146 H Potassium (3.5 - 5.1 mmol/L) 4.3 Chloride (98 - 107 mmol/L) 107 Carbon Dioxide (22 - 30 mmol/L) 24 Anion Gap (5 - 16) 15 BUN (7 - 17 mg/dL) 54 H Creatinine (0.5 - 1.0 mg/dL) 3.6 H Estimated GFR (>60 ml/min) 12 L BUN/Creatinine Ratio (7 - 25 %) 15.0 Coagulation APTT (25 - 37 SEC) 74 H 52 H Hematology CBC w Diff NO MAN DIFF REQ WBC (4.8 - 10.8 /CUMM) 11.3 H RBC (4.20 - 5.40 /CUMM) 3.72 L Hgb (12.0 - 16.0 G/DL) 10.3 L Hct (37 - 47 %) 31.3 L MCV (81.0 - 99.0 FL) 84.1 MCH (27.0 - 31.0 PG) 27.6 RDW (11.5 - 14.5 %) 15.8 H Plt Count (130 - 400 /CUMM) 194 MPV (7.4 - 10.4 FL) 8.6 Gran % (42.2 - 75.2 %) 72.8 Lymphocytes % (20.5 - 51.1 %) 13.1 L Monocytes % (1.7 - 9.3 %) 8.9 Eosinophils % (0 - 5 %) 4.3 Basophils % (0.0 - 2.0 %) 0.9 Absolute Granulocytes (1.4 - 6.5 /CUMM) 8.2 H Absolute Lymphocytes (1.2 - 3.4 /CUMM) 1.5 Absolute Monocytes (0.10 - 0.60 /CUMM) 1.0 H Absolute Eosinophils (0.0 - 0.7 /CUMM) 0.5 Absolute Basophils (0.0 - 0.2 /CUMM) 0.1 PUBS MCHC (33.0 - 37.0 G/DL) 32.8 L 08/28 0637 Chemistry Sodium (137 - 145 mmol/L) 145 Potassium (3.5 - 5.1 mmol/L) 4.3 Chloride (98 - 107 mmol/L) 107 Carbon Dioxide (22 - 30 mmol/L) 23 Anion Gap (5 - 16) 14 BUN (7 - 17 mg/dL) 53 H Creatinine (0.5 - 1.0 mg/dL) 3.7 H Estimated GFR (>60 ml/min) 12 L BUN/Creatinine Ratio (7 - 25 %) 14.3 Hematology CBC w Diff NO MAN DIFF REQ WBC (4.8 - 10.8 /CUMM) 10.3 RBC (4.20 - 5.40 /CUMM) 3.71 L Hgb (12.0 - 16.0 G/DL) 10.1 L Hct (37 - 47 %) 31.5 L MCV (81.0 - 99.0 FL) 84.9 MCH (27.0 - 31.0 PG) 27.3 RDW (11.5 - 14.5 %) 15.1 H Plt Count (130 - 400 /CUMM) 209 MPV (7.4 - 10.4 FL) 10.1 Gran % (42.2 - 75.2 %) 70.0 Lymphocytes % (20.5 - 51.1 %) 14.3 L Monocytes % (1.7 - 9.3 %) 9.8 H Eosinophils % (0 - 5 %) 5.2 H Basophils % (0.0 - 2.0 %) 0.7 Absolute Granulocytes (1.4 - 6.5 /CUMM) 7.2 H Absolute Lymphocytes (1.2 - 3.4 /CUMM) 1.5 Absolute Monocytes (0.10 - 0.60 /CUMM) 1.0 H Absolute Eosinophils (0.0 - 0.7 /CUMM) 0.5 Absolute Basophils (0.0 - 0.2 /CUMM) 0.1 PUBS MCHC (33.0 - 37.0 G/DL) 32.1 L Imaging/Other Studies: EXAMINATION: XR PORTABLE CHEST CLINICAL INFORMATION: Desaturation. Shortness of breath. COMPARISON: 08/25/2017 and priors TECHNIQUE: Portable portable 80 degrees upright (time stamp 10:06 AM) view of the chest was obtained. FINDINGS: The patient is rotated. Grossly stable heart and mediastinum. New opacities at the bases right more than left. There is a right effusion and bibasilar consolidation. Given prominence of the central pulmonary vasculature interstitial edema is favored. Vascular calculations in the upper extremities. IMPRESSION: New right effusion and basal opacities. Favor edema. CT KIDNEYS AND URETERS: The kidneys are normal in size, shape, and attenuation. No hydronephrosis, hydroureter, or calculi seen. Symmetric perinephric stranding. Assessment/Plan Assessment/Recommendations Assessment: Stage V CKD - 2/2 DM/HTN - has an AVF which is usable but currently does not have an HD need. Edema - ?2/2 IVF administration in the setting of A fib with RVR compounded by her normal dose of torsemide's inability to work with her further reduced renal function. Needs diuresis. Anemia - Hg current at goal for her level of CKD without RITO. Need to monitor as outpatient as well. Met acidosis - below goal for level of CKD. UTI - On treatment. HTN - Much better control. MBD - Should have parameters checked. A fib with RVR - Rate better controlled. On anticoagulation. Recommendations: -Would actively diurese - would favor dosing IV lasix 60mg daily - may need to discharge on torsemide 40mg daily with plans to cut back to 20mg daily if/when edema disappears -Would check ferritin, iron stores -Would check PTH, Phos -Start sodium bicarb 1300mg BID -Limb alert to RUE - no BP draws, IV's, BP checks Please call [phone] with ?'s
[2017-08-30 14:57] VITALS: BP 118/64
[2017-08-30 18:58] LABS: PT 13.5 SEC (9.4-12.5); PTT 69 SEC (25-37)
[2017-08-30 23:40] VITALS: BP 122/70
[2017-08-31 06:38] VITALS: BP 114/66
--- NOTE | 2017-08-31 08:03 | PN- Housestaff ---
Ganesh Forde MD,Ami 08/31/17 0803: Subjective Follow-up For: Afib UTI CKD Tele-Events Since Last Visit: Afib 82-97 Subjective: Patient visited today, was sitting on bed comfortably in no acute distress, was alert and oriented. no palpitation or hear racing. No fever or chills, no shortness of breathing, no chest pain, no other events. Cardizem changed to PO, HR stable. Planned for PT evalaution/treat today. Review of Systems Constitutional: Reports: see HPI. Cardiovascular: Reports: edema. Respiratory: Reports: no symptoms. Musculoskeletal: Reports: no symptoms. Objective Last 24 Hrs of Vital Signs/I&O Vital Signs Date Time Temp Pulse Resp B/P B/P Pulse O2 O2 Flow FiO2 Mean Ox Delivery Rate 08/31 0902 100 130/70 08/31 0902 100 130/70 08/31 0638 97.6 68 20 114/66 90 Room Air 08/31 0000 90 Room Air Room Air 08/30 2340 97.8 71 18 122/70 90 Room Air 08/30 2217 66 122/70 08/30 2217 66 122/70 08/30 1945 92 Room Air 08/30 1600 90 Room Air 08/30 1457 98.3 105 20 118/64 90 Room Air 08/30 1233 108 140/80 08/30 1035 114 128/68 Intake & Output 08/31 1600 08/31 0800 08/31 0000 Intake Total 438 540 Output Total 350 200 Balance 88 340 Intake, IV 338 Intake, Oral 100 540 Number 0 Bowel Movements Output, Urine 350 200 Physical Exam General Appearance: Alert, Oriented X3, Cooperative, No Acute Distress Skin: Chronic lesion over right leg Skin Temp/Moisture Exam: Warm/Dry Sepsis Skin Exam (color): Normal for Ethnicity HEENT: Atraumatic, EOMI, Mucous Membr. moist/pink Cardiovascular: Normal S1, Normal S2, irregular irreg Lungs: Clear to Auscultation, Normal Air Movement Abdomen: Soft, No Tenderness Extremities: Improved swelling Current Medications: Current Medications Sig/Cole Start time Last Medication Dose Route Stop Time Status Admin Acetaminophen 650 MG Q6P PRN 08/23 1945 AC PO Atorvastatin Calcium 80 MG 1700 08/24 1700 AC 08/30 PO 1715 Calcitriol 0.25 MCG DAILY 08/24 1000 AC 08/31 PO 0901 Diltiazem HCl 90 MG Q6 08/31 1000 AC PO Diltiazem HCl 125 MG Q10H 08/30 1200 DC 08/31 Sodium Chloride 100 ML IV 0901 Diltiazem HCl 125 MG Q10H 08/25 2000 DC 08/30 Sodium Chloride 100 ML IV 0010 Febuxostat 40 MG DAILY 08/24 1530 AC 08/31 PO 0901 Furosemide 60 MG DAILY 08/31 1000 AC 08/31 IV 0901 Furosemide 20 MG ONCE ONE 08/30 1700 DC 08/30 IV 08/30 1701 1545 Heparin Sodium 25,000 UNIT Q24H 08/28 1030 AC 08/30 (Porcine) IV 1954 Sodium Chloride 500 ML Hydralazine HCl 25 MG BID 08/23 2200 AC 08/31 PO 0902 Hydrocodone Bitart/ 1 TAB Q6P PRN 08/23 1945 DC Acetaminophen PO Insulin Aspart 0 TIDAC 08/24 0800 AC 08/31 SC 0751 Metoprolol Tartrate 25 MG BID 08/30 1115 AC 08/31 PO 0902 Oxycodone/ 2 TAB Q6P PRN 08/23 1945 DC Acetaminophen PO Sevelamer Carbonate 1,600 MG WM 08/24 1700 AC 08/31 PO 0751 Sodium Bicarbonate 1,300 MG BID 08/30 1359 AC 08/31 PO 0901 Torsemide 20 MG DAILY 08/24 1000 DC 08/30 PO 0921 Warfarin Sodium 7.5 MG COUMADIN 1700 ONE 08/31 1700 AC PO 08/31 1701 Warfarin Sodium 5 MG COUMADIN 1700 ONE 08/30 1700 DC 08/30 PO 08/30 1701 1715 Last 24 Hrs of Lab/Rayshawn Results Last 24 Hrs of Labs/Mics: Laboratory Tests 08/31/17 06: Anion Gap 14, Estimated GFR 12 L, BUN/Creatinine Ratio 15.8, PT 14.7 H, INR 1.40 H, APTT 81 H, CBC w Diff NO MAN DIFF REQ, RBC 3.79 L, MCV 84.1, MCH 27.9 , RDW 15.6 H, MPV 10.6 H, Gran % 66.8, Lymphocytes % 18.8 L, Monocytes % 9.1, Eosinophils % 4.6, Basophils % 0.7, Absolute Granulocytes 7.8 H, Absolute Lymphocytes 2.2, Absolute Monocytes 1.1 H, Absolute Eosinophils 0.5, Absolute Basophils 0.1, PUBS [facility] 33.2 08/30/17 1740: PT 13.5 H, INR 1.29 H, APTT 69 H Assessment/Plan Assessment: Assessment: Patient is a 72-year-old female with past medical history significant for paroxysmal atrial fibrillation with previous cardioversions and currently not on anticoagulation per patient's decision due to her concern of bleeding, she stopped anticoagulation after cutting herself and bleeding profusely in the past , status post cardioversion 2 (last one in 2015), diabetes not on any medications currently, diabetic and hypertensive nephropathy confirmed by biopsy , hypertension, hyperlipidemia, previous admission in January 2017 treated for RAMO, chronic kidney disease stage III with AV fistula placed, not mature or needed at this point, sinus bradycardia, atrial fibrillation, diagnosed with right external carotid artery stenosis. Presents this admission with atrial fibrillation with RVR after being seen by her senior biostatistician/group leader Dr. Chang. Patient has a [id number] score of 5. Patient's last echo was 2016 and showed a restrictive filling pattern of the left ventricle, stage III diastolic dysfunction, with an EF of 65% during that admission for congestive heart failure. Atrial fibrillation with RVR Monitor on telemetry ekgs and trops negative Cardiology on board Anticoagulation with IV heparin started again after we ruled out bleed by CT ABD PELVIS as reason for drop in Hb. guaic stools is negative. We Continue coumadin 5mg. Control rate with diltiazem drip now on 10. we will continue nthis while she still is being treated for uti and then we will switch to oral diltizem The importance of anticoagulation therapy in the setting of atrial fibrillation was discussed at length with the patient, the benefits and risks were discussed and she is amenable to AC. Patient is not a candidate for NOACs with her elevated Cr. - Cardizem drip changed to PO - Metoprolol added BID - IV heparin - Warfarin dose 4 today (7.5mg considering INR 1.4) UTI: Patient complaining of dysuria, urinary frequency, with urinalysis showing packed WBCs. Urine culture pending. - ceftriaxone 4 days completed Hypertension Continue hydralazine 25 mg twice a day If blood pressure remains elevated can increase to 3 times a day DM Diabetes currently diet controlled Hemoglobin A1c of 5.[address] on insulin sliding scale and Accu-Cheks History of CAD with significant right external carotid artery stenosis from previous admission , has not followed up with vascular surgery outpatient Continue aspirin 81 mg daily Referred to vascular surgery for outpatient management CHF Patient was found to have cardiomegaly with central vascular congestion and right pleural effusion on x-ray. continue toresemide patient not on oxygen now. CXR showed pleural effusion. - Nephrology Consulted regarding diuretics - Trosemide stoped - Lasix 60 IV daily Elevated ALKP Elevated alkaline phosphatase of greater than 400 and GGT 192. AST and ALT are normal Limited right upper quadrant ultrasound suggests acalculus cholecystitis. hida showed no abnormality Patient has no right upper quadrant pain or any symptoms postprandially Patient denies heavy alcohol use Hypokalemia Resolved CKD Patient follows with Dr. Chang Creatinine near baseline - Follow Neph recommendations - RUE no interventions anemia: Most likely Secondary to chronic disease. -Epogen as per nephrology outpatient DVT prophylaxis: Currently on IV heparin Diet: Diabetic diet with salt restriction Code: Full code Problem List: 1. UTI (urinary tract infection) 2. Rapid atrial fibrillation Pain Ratin Pain Location: none Pain Goal: Pain 4 or less Pain Plan: Continue current plan Tomorrow's Labs & Rationales: BEP Sumit Meza 08/31/17 1433: Attending MD Review Statement Attending Statement Attending MD Statement: examined this patient, discuss w/resident/PA/SENIOR BIOSTATISTICIAN/GROUP LEADER, agreed w/resident/PA/SENIOR BIOSTATISTICIAN/GROUP LEADER, reviewed EMR data (avail), discussed with nursing, discussed with case mgmt Attending Assessment/Plan: afib with RVR- dc cardizem drip and start on short acting cardizem 90mg q6h and see how she does and if ok will switch to long acting 360mg from tomorrow am. chf exac- on lasix 60mg iv daily . nephrology following closely. d/w pt the care plan. f/u on creatinine closely given the CKD -5.
[2017-08-31 08:17] LABS: ABSOLUTE BASOPHIL COUNT 0.1 /CUMM (0.0-0.2); ABSOLUTE EOSINOPHIL COUNT 0.5 /CUMM (0.0-0.7); ABSOLUTE GRANULOCYTE CT 7.8 /CUMM (1.4-6.5); ABSOLUTE LYMPH COUNT 2.2 /CUMM (1.2-3.4); ABSOLUTE MONOCYTE COUNT 1.1 /CUMM (0.10-0.60); BASOPHIL % 0.7 % (0.0-2.0); EOSINOPHIL % 4.6 % (0-5); GRANULOCYTE % 66.8 % (42.2-75.2); HEMATOCRIT 31.9 % (37-47); MEAN CORPUSCULAR HGB 27.9 PG (27.0-31.0); MEAN CORPUSCULAR HGB CONC 33.2 G/DL (33.0-37.0); MEAN CORPUSCULAR VOLUME 84.1 FL (81.0-99.0); MEAN PLATELET VOLUME 10.6 FL (7.4-10.4); PLATELET COUNT 206 /CUMM (130-400); RBC DISTRIBUTION WIDTH 15.6 % (11.5-14.5); RED BLOOD CELL CT 3.79 /CUMM (4.20-5.40); WHITE BLOOD CELL COUNT 11.7 /CUMM (4.8-10.8)
[2017-08-31 08:18] LABS: PT 14.7 SEC (9.4-12.5); PTT 81 SEC (25-37)
[2017-08-31] MEDS ORDERED: COUMADIN7.5 M1 PO (11:29)
[2017-08-31] MEDS ORDERED: METOPROLOL TART25 M1 PO (11:29)
--- NOTE | 2017-08-31 11:34 | Patient Discharge Instructions ---
Discharge Instructions General Discharge Information You were seen/treated for: Afib UTI Watch for these problems: Increased palpitation, heart racing, chest pain, headache, weakness, dizziness or worsening of symptoms Special Instructions: Please follow with your PCP within one week of discharge. Please follow with your tobacco drummer within one week of discharge. Please follow with your talent development specialist within one week of discharge. Please do your PT test on the day instructed. Please follow with your tobacco drummer with your lab results. Diet Continue normal diet: No Recommended Diet: Heart Healthy Activity Full Activity/No Limits: No Activity Self Limited: Yes Acute Coronary Syndrome Inclusion Criteria At DC or during hospital stay patient has or had the following: ACS DIAGNOSIS No Discharge Core Measures Meds if any: Prescribed or Continued at Discharge Meds if any: NOT Prescribed or Continued at Discharge Congestive Heart Failure Inclusion Criteria At DC or during hospital stay patient has or had the following: CHF DIAGNOSIS Yes Discharge Core Measures Meds if any: Prescribed or Continued at Discharge Meds if any: NOT Prescribed or Continued at Discharge Cerebrovascular accident Inclusion Criteria At DC or during hospital stay patient has or had the following: CVA/TIA Diagnosis No Discharge Core Measures Meds if any: Prescribed or Continued at Discharge Meds if any: NOT Prescribed or Continued at Discharge Venous thromboembolism Inclusion Criteria VTE Diagnosis No VTE Type NONE VTE Confirmed by (Test) NONE Discharge Core Measures - Per Current guidelines, there needs to be overlap - treatment for the first 5 days of Warfarin therapy. - If discharged on Warfarin prior to 5 days of - overlap therapy, the patient will need to be - assessed for post discharge needs including - *Post discharge parental anticoagulation - *Warfarin and/or parental anticoagulation education - *Follow up date to check INR post discharge At least 5 days overlap therapy as Inpatient No Meds if any: Prescribed or Continued at Discharge Warfarin Yes Overlap Therapy Yes Note: Overlap Therapy is Warfarin and Anticoagulant Meds if any: NOT Prescribed or Continued at Discharge
--- NOTE | 2017-08-31 11:45 | PN- Nephrology ---
Assessment/Plan Assessment: Stage V CKD - 2/2 DM/HTN - has an AVF which is usable but currently does not have an HD need. Edema - Perhaps starting to improve. Her SCr is oscillating with diuresis. I think that giving 60mg IV lasix this morning is justified although would check her BMP tomorrow before dosing it again. Anemia - Hg current at goal for her level of CKD without RITO. Mild functional iron deficiency in the setting of CKD. May benefit from some IV iron while in- house. Need to monitor as outpatient as well. Met acidosis - Now at goal. on sodium bicarb. UTI - On treatment. HTN - Much better control - may be the cause of some of the fluctuations in her SCr. MBD - Phos and PTH at goal. A fib with RVR - Rate better controlled. On anticoagulation. Suggestion: -f/u BMP tomorrow - if SCr stable, would dose 60mg IV lasix again -Cont sodium bicarb -Venofer 200mg every other day x5 doses -Limb alert to RUE - no BP draws, IV's, BP checks Please call [phone] with ?'s Subjective Subjective: Got 20mg IV lasix and 20mg PO torsemide yesterday Given 60mg IV lasix this AM Feels like swelling perhaps a bit better SCr up to 3.8 BP 114/66 this AM (pt says baseline BP 140's/70's) No weights On hepairn gtt; INR 1.40 Objective Vital Signs and I&Os Vital Signs Date Time Temp Pulse Resp B/P B/P Pulse O2 O2 Flow FiO2 Mean Ox Delivery Rate 08/31 0902 100 130/70 08/31 0902 100 130/70 08/31 0638 97.6 68 20 114/66 90 Room Air 08/31 0000 90 Room Air Room Air 08/30 2340 97.8 71 18 122/70 90 Room Air 08/30 2217 66 122/70 08/30 2217 66 122/70 08/30 1945 92 Room Air 08/30 1600 90 Room Air 08/30 1457 98.3 105 20 118/64 90 Room Air 08/30 1233 108 140/80 Intake & Output 08/31 1600 08/31 0400 08/30 1600 08/30 0400 08/29 1600 08/29 0400 Intake Total 029 397 1467 650 966 235.5 Output Total 350 997 244 0438 650 Balance 88 340 438 650 -159 -414.5 Intake, IV 338 338 316 115.5 Intake, Oral 100 540 900 650 650 120 Number 0 0 Bowel Movements Output, Urine 350 548 846 5397 650 Patient 212 lb Weight Physical Exam: Gen - OK appearing HEENT - supple CV - RRR, no m/r/g Chest - L basilar crackles, no wheezes/rhonchi Abd - soft, NTND Ext - trace-1+ edema Neuro - AOX3, grossly nonfocal Current Medications: Current Medications Sig/Cole Start time Last Medication Dose Route Stop Time Status Admin Acetaminophen 650 MG Q6P PRN 08/23 194 AC PO Atorvastatin Calcium 80 MG 1700 08/24 1700 AC 08/30 PO 1715 Calcitriol 0.25 MCG DAILY 08/24 1000 AC 08/31 PO 0901 Diltiazem HCl 90 MG Q6 08/31 1000 AC 08/31 PO 1124 Diltiazem HCl 125 MG Q10H 08/30 1200 DC 08/31 Sodium Chloride 100 ML IV 0901 Febuxostat 40 MG DAILY 08/24 1530 AC 08/31 PO 0901 Furosemide 60 MG DAILY 08/31 1000 AC 08/31 IV 0901 Furosemide 20 MG ONCE ONE 08/30 1700 DC 08/30 IV 08/30 1701 1545 Heparin Sodium 25,000 UNIT Q24H 08/28 1030 AC 08/30 (Porcine) IV 1954 Sodium Chloride 500 ML Hydralazine HCl 25 MG BID 08/23 2200 AC 08/31 PO 0902 Hydrocodone Bitart/ 1 TAB Q6P PRN 08/23 1944 DC Acetaminophen PO Insulin Aspart 0 TIDAC 08/24 0800 AC 08/31 SC 0751 Metoprolol Tartrate 25 MG BID 08/30 1115 AC 08/31 PO 0902 Oxycodone/ 2 TAB Q6P PRN 08/23 1944 DC Acetaminophen PO Sevelamer Carbonate 1,600 MG WM 08/24 1700 AC 08/31 PO 0751 Sodium Bicarbonate 1,300 MG BID 08/30 1359 AC 08/31 PO 0901 Torsemide 20 MG DAILY 08/24 1000 DC 08/30 PO 0921 Warfarin Sodium 7.5 MG COUMADIN 1700 ONE 08/31 1700 AC PO 08/31 1701 Warfarin Sodium 5 MG COUMADIN 1700 ONE 08/30 1700 DC 08/30 PO 08/30 1701 1715 Results Pertinent Lab Results: Laboratory Tests 08/31 08/30 08/30 0628 1740 0600 Chemistry Sodium (137 - 145 mmol/L) 143 Potassium (3.5 - 5.1 mmol/L) 4.0 Chloride (98 - 107 mmol/L) 105 Carbon Dioxide (22 - 30 mmol/L) 23 Anion Gap (5 - 16) 14 BUN (7 - 17 mg/dL) 60 H Creatinine (0.5 - 1.0 mg/dL) 3.8 H Estimated GFR (>60 ml/min) 12 L BUN/Creatinine Ratio (7 - 25 %) 15.8 PTH Intact (18.4 - 80.1 pg/ML) 103.1 H Coagulation PT (9.4 - 12.5 SEC) 14.7 H 13.5 H INR (0.90 - 1.19) 1.40 H 1.29 H APTT (25 - 37 SEC) 81 H 69 H Hematology CBC w Diff NO MAN DIFF REQ WBC (4.8 - 10.8 /CUMM) 11.7 H RBC (4.20 - 5.40 /CUMM) 3.79 L Hgb (12.0 - 16.0 G/DL) 10.6 L Hct (37 - 47 %) 31.9 L MCV (81.0 - 99.0 FL) 84.1 MCH (27.0 - 31.0 PG) 27.9 RDW (11.5 - 14.5 %) 15.6 H Plt Count (130 - 400 /CUMM) 206 MPV (7.4 - 10.4 FL) 10.6 H Gran % (42.2 - 75.2 %) 66.8 Lymphocytes % (20.5 - 51.1 %) 18.8 L Monocytes % (1.7 - 9.3 %) 9.1 Eosinophils % (0 - 5 %) 4.6 Basophils % (0.0 - 2.0 %) 0.7 Absolute Granulocytes (1.4 - 6.5 /CUMM) 7.8 H Absolute Lymphocytes (1.2 - 3.4 /CUMM) 2.2 Absolute Monocytes (0.10 - 0.60 /CUMM) 1.1 H Absolute Eosinophils (0.0 - 0.7 /CUMM) 0.5 Absolute Basophils (0.0 - 0.2 /CUMM) 0.1 PUBS MCHC (33.0 - 37.0 G/DL) 33.2 08/30 08/29 08/29 0530 1720 0427 Chemistry Sodium (137 - 145 mmol/L) 144 Potassium (3.5 - 5.1 mmol/L) 4.1 Chloride (98 - 107 mmol/L) 107 Carbon Dioxide (22 - 30 mmol/L) 21 L Anion Gap (5 - 16) 16 BUN (7 - 17 mg/dL) 56 H Creatinine (0.5 - 1.0 mg/dL) 3.5 H Estimated GFR (>60 ml/min) 13 L BUN/Creatinine Ratio (7 - 25 %) 16.0 Phosphorus (2.5 - 4.5 mg/dL) 4.2 Iron (37 - 170 ug/dL) 57 TIBC (265 - 497 ug/dL) 278 Ferritin (11.1 - 264 ng/mL) 134.0 [id number]-Msaafdbpsbb Pept (<125 pg/mL) 96572 H Coagulation PT (9.4 - 12.5 SEC) 12.8 H 12.0 INR (0.90 - 1.19) 1.22 H 1.14 APTT (25 - 37 SEC) 83 H 77 H Hematology CBC w Diff NO MAN DIFF REQ WBC (4.8 - 10.8 /CUMM) 10.4 RBC (4.20 - 5.40 /CUMM) 3.60 L Hgb (12.0 - 16.0 G/DL) 10.0 L Hct (37 - 47 %) 30.4 L MCV (81.0 - 99.0 FL) 84.3 MCH (27.0 - 31.0 PG) 27.8 RDW (11.5 - 14.5 %) 15.1 H Plt Count (130 - 400 /CUMM) 199 MPV (7.4 - 10.4 FL) 9.3 Gran % (42.2 - 75.2 %) 69.9 Lymphocytes % (20.5 - 51.1 %) 15.6 L Monocytes % (1.7 - 9.3 %) 8.5 Eosinophils % (0 - 5 %) 4.3 Basophils % (0.0 - 2.0 %) 1.7 Absolute Granulocytes (1.4 - 6.5 /CUMM) 7.3 H Absolute Lymphocytes (1.2 - 3.4 /CUMM) 1.6 Absolute Monocytes (0.10 - 0.60 /CUMM) 0.9 H Absolute Eosinophils (0.0 - 0.7 /CUMM) 0.4 Absolute Basophils (0.0 - 0.2 /CUMM) 0.2 PUBS MCHC (33.0 - 37.0 G/DL) 33.0 08/29 08/28 0427 1904 Chemistry Sodium (137 - 145 mmol/L) 146 H Potassium (3.5 - 5.1 mmol/L) 4.3 Chloride (98 - 107 mmol/L) 107 Carbon Dioxide (22 - 30 mmol/L) 24 Anion Gap (5 - 16) 15 BUN (7 - 17 mg/dL) 54 H Creatinine (0.5 - 1.0 mg/dL) 3.6 H Estimated GFR (>60 ml/min) 12 L BUN/Creatinine Ratio (7 - 25 %) 15.0 Coagulation APTT (25 - 37 SEC) 74 H 52 H Hematology CBC w Diff NO MAN DIFF REQ WBC (4.8 - 10.8 /CUMM) 11.3 H RBC (4.20 - 5.40 /CUMM) 3.72 L Hgb (12.0 - 16.0 G/DL) 10.3 L Hct (37 - 47 %) 31.3 L MCV (81.0 - 99.0 FL) 84.1 MCH (27.0 - 31.0 PG) 27.6 RDW (11.5 - 14.5 %) 15.8 H Plt Count (130 - 400 /CUMM) 194 MPV (7.4 - 10.4 FL) 8.6 Gran % (42.2 - 75.2 %) 72.8 Lymphocytes % (20.5 - 51.1 %) 13.1 L Monocytes % (1.7 - 9.3 %) 8.9 Eosinophils % (0 - 5 %) 4.3 Basophils % (0.0 - 2.0 %) 0.9 Absolute Granulocytes (1.4 - 6.5 /CUMM) 8.2 H Absolute Lymphocytes (1.2 - 3.4 /CUMM) 1.5 Absolute Monocytes (0.10 - 0.60 /CUMM) 1.0 H Absolute Eosinophils (0.0 - 0.7 /CUMM) 0.5 Absolute Basophils (0.0 - 0.2 /CUMM) 0.1 PUBS MCHC (33.0 - 37.0 G/DL) 32.8 L Imaging/Other Studies: EXAM TYPE: RAD - XRY-PORTABLE CHEST XRAY EXAMINATION: XR PORTABLE CHEST CLINICAL INFORMATION: Desaturation. Shortness of breath. COMPARISON: 08/25/2017 and priors TECHNIQUE: Portable portable 80 degrees upright (time stamp 10:06 AM) view of the chest was obtained. FINDINGS: The patient is rotated. Grossly stable heart and mediastinum. New opacities at the bases right more than left. There is a right effusion and bibasilar consolidation. Given prominence of the central pulmonary vasculature interstitial edema is favored. Vascular calculations in the upper extremities. IMPRESSION: New right effusion and basal opacities. Favor edema.
[2017-08-31 15:05] VITALS: BP 140/88
--- NOTE | 2017-08-31 17:04 | PN- Cardiology ---
Subjective Subjective: No complaints. The ventricular response to her atrial fibrillation is coming under better control. Objective Vital Signs and I&Os Vital Signs Date Time Temp Pulse Resp B/P B/P Pulse O2 O2 Flow FiO2 Mean Ox Delivery Rate 08/31 1505 97.8 70 20 140/88 08/31 0902 100 130/70 08/31 0902 100 130/70 08/31 0638 97.6 68 20 114/66 90 Room Air 08/31 0000 90 Room Air Room Air 08/30 2340 97.8 71 18 122/70 90 Room Air 08/30 2217 66 122/70 08/30 2217 66 122/70 08/30 1945 92 Room Air Intake & Output 08/31 1600 08/31 0800 08/31 0000 08/30 1600 08/30 0800 08/30 0000 Intake Total 800 438 540 998 240 650 Output Total 900 350 200 200 600 Balance -100 88 340 798 -360 650 Intake, IV 300 338 338 Intake, Oral 500 100 540 660 240 650 Number 1 0 0 0 Bowel Movements Output, Urine 900 350 200 200 600 Physical Exam: Well-developed, overweight elderly female in no acute distress. Vital signs: See above. HEENT: Normocephalic, atraumatic, EOMI, slightly dry mucous membranes. Neck: No JVD, right carotid bruit. Lungs: Decreased breath sounds otherwise clear. Heart: S1, S2 (irregularly, irregular) with soft (grade 1-2/6) systolic murmur. Abdomen: Soft, nontender, positive bowel sounds. Extremities: 1-2+ bilateral lower extremity edema. Current Medications: Current Medications Sig/Cole Start time Last Medication Dose Route Stop Time Status Admin Acetaminophen 650 MG Q6P PRN 08/23 1945 AC PO Atorvastatin Calcium 80 MG 1700 08/24 1700 AC 08/31 PO 1646 Calcitriol 0.25 MCG DAILY 08/24 1000 AC 08/31 PO 0901 Diltiazem HCl 90 MG Q6 08/31 1000 AC 08/31 PO 1124 Diltiazem HCl 125 MG Q10H 08/30 1200 DC 08/31 Sodium Chloride 100 ML IV 0901 Febuxostat 40 MG DAILY 08/24 1530 AC 08/31 PO 0901 Furosemide 60 MG DAILY 08/31 1000 AC 08/31 IV 0901 Heparin Sodium 25,000 UNIT Q24H 08/28 1030 AC 08/30 (Porcine) IV 1954 Sodium Chloride 500 ML Hydralazine HCl 25 MG BID 08/23 2200 AC 08/31 PO 0902 Hydrocodone Bitart/ 1 TAB Q6P PRN 08/23 194 DC Acetaminophen PO Insulin Aspart 0 TIDAC 08/24 0800 AC 08/31 SC 1227 Iron Sucrose 200 MG Q48H 08/31 1600 AC Sodium Chloride 100 ML IV 09/08 1614 Metoprolol Tartrate 25 MG BID 08/30 1115 AC 08/31 PO 0902 Non-Formulary 0 SEE ADMIN CRITERIA 08/31 1430 CAN Medication ANY 09/04 1431 Oxycodone/ 2 TAB Q6P PRN 08/23 1944 DC Acetaminophen PO Sevelamer Carbonate 1,600 MG WM 08/24 1700 AC 08/31 PO 1646 Sodium Bicarbonate 1,300 MG BID 08/30 1359 AC 08/31 PO 0901 Warfarin Sodium 7.5 MG COUMADIN 1700 ONE 08/31 1700 DC 08/31 PO 08/31 1701 1645 Results Last 48 Hrs of Labs/Mics: Laboratory Tests 08/31/17 0628: Anion Gap 14, Estimated GFR 12 L, BUN/Creatinine Ratio 15.8, PT 14.7 H, INR 1.40 H, APTT 81 H, CBC w Diff NO MAN DIFF REQ, RBC 3.79 L, MCV 84.1, MCH 27.9 , RDW 15.6 H, MPV 10.6 H, Gran % 66.8, Lymphocytes % 18.8 L, Monocytes % 9.1, Eosinophils % 4.6, Basophils % 0.7, Absolute Granulocytes 7.8 H, Absolute Lymphocytes 2.2, Absolute Monocytes 1.1 H, Absolute Eosinophils 0.5, Absolute Basophils 0.1, PUBS MCHC 33.2 08/30/17 1740: PT 13.5 H, INR 1.29 H, APTT 69 H 08/30/17 0600: PTH Intact 103.1 H 08/30/17 0530: Anion Gap 16, Estimated GFR 13 L, BUN/Creatinine Ratio 16.0, Phosphorus 4.2, Iron 57, TIBC 278, Ferritin 134.0, Ghn-T-Elccgoobpse Pept 14971 H, PT 12.8 H, INR 1.22 H, APTT 83 H, CBC w Diff NO MAN DIFF REQ, RBC 3.60 L, MCV 84.3, MCH 27.8, RDW 15.1 H, MPV 9.3, Gran % 69.9, Lymphocytes % 15.6 L, Monocytes % 8.5, Eosinophils % 4.3, Basophils % 1.7, Absolute Granulocytes 7.3 H, Absolute Lymphocytes 1.6, Absolute Monocytes 0.9 H, Absolute Eosinophils 0.4, Absolute Basophils 0.2, PUBS MCHC 33.0 08/29/17 1720: APTT 77 H Assessment/Plan Assessment/Plan [id number]-f w/ hx gout, HLD, HTN, DM, CKD s/p RUE AV fistula 06/2016 w/o use necessity, ch anemia on RITO, & PAF s/p electrical CV following a CARI ~2015 w/ recurrence and successful antiarrhythmic Rx w/ chemical CV ~2016 who was in her usual state of health and being seen by nephrology (Jay Chang M.D.) when she was discovered to be in a rapid irregularly irregular rhythm and was sent to the ED for an ECG that confirmed AF w/ RVR. Fortunately, she remains asymptomatic and the ventricular response rate has improved to ~70-90s bpm range on metoprolol 25 mg twice daily and diltiazem 90 mg every 6 hours. Remains on heparin and warfarin with today's INR 1.4. She received warfarin 7.5 mg. Being diuresed with IV furosemide 60 mg daily. Recommendations: * Continue on telemetry. * DVT prophylaxis being addressed by anticoagulation for the atrial fibrillation. * Follow-up on nephrology recommendations. Continue telemetry? Yes
[2017-08-31 19:10] LABS: PTT 76 SEC (25-37)
[2017-08-31 22:13] VITALS: BP 128/62
[2017-09-01 06:00] VITALS: BP 118/70
--- NOTE | 2017-09-01 08:07 | PN- Housestaff ---
Subjective Follow-up For: Afib UTI CKD Tele-Events Since Last Visit: afib 73-97 Subjective: Patient visited today, was sitting at the bedside comfortably in no acute distress, was alert and oriented. Improved urinary symptoms No fever or chills, no shortness of breathing, no palpitation or heart racing, no chest pain, no other events. Planned to be discharged today Review of Systems Constitutional: Reports: no symptoms. Cardiovascular: Denies: palpitations. Respiratory: Reports: no symptoms. Genitourinary: Reports: see HPI (improved). Objective Last 24 Hrs of Vital Signs/I&O Vital Signs Date Time Temp Pulse Resp B/P B/P Pulse O2 O2 Flow FiO2 Mean Ox Delivery Rate 09/01 0918 79 118/70 09/01 0917 79 118/70 09/01 0800 92 Room Air 09/01 0600 97.7 94 22 118/70 92 Room Air 09/01 0000 Room Air 08/31 2213 98.6 86 20 128/62 91 Room Air 08/31 2132 96 122/60 08/31 2132 103 122/60 08/31 1505 97.8 70 20 140/88 Intake & Output 09/01 1600 09/01 0800 09/01 0000 Intake Total 358.4 600 Output Total 500 800 Balance -141.6 -200 Intake, IV 238.4 250 Intake, Oral 120 350 Number 0 0 Bowel Movements Output, Urine 500 800 Physical Exam General Appearance: Alert, Oriented X3, Cooperative, No Acute Distress Skin: chronic skin lesion over legs Skin Temp/Moisture Exam: Warm/Dry Sepsis Skin Exam (color): Normal for Ethnicity HEENT: Atraumatic, EOMI, Mucous Membr. moist/pink Cardiovascular: Normal S1, Normal S2, irreg irreg Lungs: Clear to Auscultation Abdomen: Soft, No Tenderness Neurological: Normal Speech Extremities: leg edema improved Current Medications: Current Medications Sig/Cole Start time Last Medication Dose Route Stop Time Status Admin Acetaminophen 650 MG Q6P PRN 08/23 194 AC PO Atorvastatin Calcium 80 MG 1700 08/24 1700 AC 08/31 PO 1646 Calcitriol 0.25 MCG DAILY 08/24 1000 AC 09/01 PO 0918 Diltiazem HCl 360 MG DAILY 09/01 1000 AC 09/01 PO 1135 Diltiazem HCl 90 MG Q6 08/31 1000 DC 09/01 PO 0539 Febuxostat 40 MG DAILY 08/24 1530 AC 09/01 PO 0917 Furosemide 60 MG DAILY 08/31 1000 AC 09/01 IV 0918 Heparin Sodium 25,000 UNIT Q24H 08/28 1030 AC 09/01 (Porcine) IV 0917 Sodium Chloride 500 ML Hydralazine HCl 25 MG BID 08/23 2200 AC 09/01 PO 0917 Insulin Aspart 0 TIDAC 08/24 0800 AC 09/01 SC 1220 Iron Sucrose 200 MG Q48H 08/31 1600 AC Sodium Chloride 100 ML IV 09/08 1614 Metoprolol Tartrate 25 MG BID 08/30 1115 AC 09/01 PO 0918 Non-Formulary 0 SEE ADMIN CRITERIA 08/31 1430 CAN Medication ANY 09/04 1431 Sevelamer Carbonate 1,600 MG WM 08/24 1700 AC 09/01 PO 1215 Sodium Bicarbonate 1,300 MG BID 08/30 1359 AC 09/01 PO 0918 Warfarin Sodium 7.5 MG COUMADIN 1700 ONE 08/31 1700 DC 08/31 PO 08/31 1701 1645 Last 24 Hrs of Lab/Rayshawn Results Last 24 Hrs of Labs/Mics: Laboratory Tests 09/01/17 0622: Anion Gap 14, Estimated GFR 12 L, BUN/Creatinine Ratio 16.8, PT 18.1 H, INR 1.73 H, APTT 90 H 08/31/17 1818: APTT 76 H Assessment/Plan Assessment: Assessment: Patient is a 72-year-old female with past medical history significant for paroxysmal atrial fibrillation with previous cardioversions and currently not on anticoagulation per patient's decision due to her concern of bleeding, she stopped anticoagulation after cutting herself and bleeding profusely in the past , status post cardioversion 2 (last one in 2015), diabetes not on any medications currently, diabetic and hypertensive nephropathy confirmed by biopsy , hypertension, hyperlipidemia, previous admission in January 2017 treated for RAMO, chronic kidney disease stage III with AV fistula placed, not mature or needed at this point, sinus bradycardia, atrial fibrillation, diagnosed with right external carotid artery stenosis. Presents this admission with atrial fibrillation with RVR after being seen by her mint wafer depositor Dr. Chang. Patient has a [id number] score of 5. Patient's last echo was 2016 and showed a restrictive filling pattern of the left ventricle, stage III diastolic dysfunction, with an EF of 65% during that admission for congestive heart failure. Atrial fibrillation with RVR Monitored on telemetry. Ekgs and trops negative. Anticoagulation with IV heparin started again after we ruled out bleeding by CT ABD PELVIS as reason for drop in Hb. Guaic stools were negative. Heartrate control was initiated with IV drip of Cardizem and then continued to by mouth and long-acting Cardizem. The importance of anticoagulation therapy in the setting of atrial fibrillation was discussed at length with the patient, the benefits and risks were discussed and she is amenable to AC. Patient was not a candidate for NOACs with her elevated Cr. Coumadin was intially continued along with heparin and heparin was then discontinued it. - Cardizem long acting started - Metoprolol added BID - IV heparin DC - Warfarin dosed - recommendation to follow with coat baster in outpatient - PT, BEP, CBC monday UTI: Patient complaining of dysuria, urinary frequency, with urinalysis showing packed WBCs. Urine culture pending. - ceftriaxone 4 days completed Hypertension Continue hydralazine 25 mg twice a day If blood pressure remains elevated can increase to 3 times a day DM Diabetes currently diet controlled Hemoglobin A1c of 5.[address] on insulin sliding scale and Accu-Cheks History of CAD with significant right external carotid artery stenosis from previous admission , has not followed up with vascular surgery outpatient Continue aspirin 81 mg daily Referred to vascular surgery for outpatient management CHF Patient was found to have cardiomegaly with central vascular congestion and right pleural effusion on x-ray. continue toresemide patient not on oxygen now. CXR showed pleural effusion. IV lasix was administered initially, upon discharge patient was recommended to take an extra dose of torsemide for 3 days and then continue daily. With recommendation to follow with coat baster next week. Elevated ALKP Elevated alkaline phosphatase of greater than 400 and GGT 192. AST and ALT are normal. Limited right upper quadrant ultrasound suggests acalculus cholecystitis. HIDA scan showed no abnormality. Patient had no right upper quadrant pain or any symptoms postprandially. Patient denies heavy alcohol use. Recommended to follow with PCP in outpatient. Hypokalemia Resolved CKD Patient follows with Dr. Chang Creatinine near baseline. RUE no interventions. Patient was recommended to follow with Dr. Chang as is scheduled. anemia: Most likely Secondary to chronic disease. -Epogen as per nephrology outpatient DVT prophylaxis: Currently on IV heparin Diet: Diabetic diet with salt restriction Code: Full code Pending management of O2 and transportation, patient could be [facility], mint wafer depositor, PCP with lab results. Problem List: 1. UTI (urinary tract infection) 2. Afib Pain Ratin Pain Location: None Pain Goal: Pain 4 or less Pain Plan: Continue current plan Tomorrow's Labs & Rationales: CBc BEP
[2017-09-01 08:21] LABS: PTT 90 SEC (25-37)
[2017-09-01 10:04] LABS: PT 18.1 SEC (9.4-12.5)
--- NOTE | 2017-09-01 11:36 | PN- Nephrology ---
See Addendum Assessment/Plan Assessment: Stage V CKD - 2/2 DM/HTN - has an AVF which is usable but currently does not have an HD need. Edema - Perhaps starting to improve although still dyspneic. If she goes home, she should increase her torsemide to 40mg daily for a few days and monitor her edema/breathing/weight until it is back to baseline. Anemia - Hg current at goal for her level of CKD without RITO. Mild functional iron deficiency in the setting of CKD - in speaking with team, OK to give oral iron on discharge. Met acidosis - Now at goal. on sodium bicarb. UTI - On treatment. HTN - Much better control - may be the cause of some of the fluctuations in her SCr. MBD - Phos and PTH at goal. A fib with RVR - Rate better controlled. On anticoagulation. Suggestion: -Torsemide 20mg daily for chronic use although would do 40mg on discharge for at least a few days and monitor her edema/breathing/weight until it is back to baseline - i'd anticipate at least 3-5 days of needing the higher dose but will have to monitor. -Cont sodium bicarb -Ferrous sulfate TID -Limb alert to RUE - no BP draws, IV's, BP checks Will see PRN if remains in-house - pt should f/u with Dr. Chang - will arrange for appt and list as an addendum to this note Please call [phone] with ?'s Subjective Subjective: SCr down to 3.7 Still with some SOB ?swelling better - still with no weights Possible d/c today Objective Vital Signs and I&Os Vital Signs Date Time Temp Pulse Resp B/P B/P Pulse O2 O2 Flow FiO2 Mean Ox Delivery Rate 09/01 0918 79 118/70 09/01 0917 79 118/70 09/01 0600 97.7 94 22 118/70 92 Room Air 09/01 0000 Room Air 08/31 2213 98.6 86 20 128/62 91 Room Air 08/31 2131 96 122/60 08/31 213 103 122/60 08/31 1505 97.8 70 20 140/88 Intake & Output 09/01 1600 09/01 0400 08/31 1600 08/31 0400 08/30 1600 08/30 0400 Intake Total 358.4 600 4462 301 7320 650 Output Total 250 958 5695 200 800 Balance -141.6 -200 -12 340 438 650 Intake, IV 238.4 250 638 338 Intake, Oral 120 350 600 540 900 650 Number 0 0 1 0 0 Bowel Movements Output, Urine 932 798 9591 200 800 Physical Exam: Gen - OK appearing HEENT - supple CV - RRR, no m/r/g Chest - mildly dyspneic, grossly clear Abd - soft, NTND Ext - trace-1+ edema Neuro - AOX3, grossly nonfocal Current Medications: Current Medications Sig/Cole Start time Last Medication Dose Route Stop Time Status Admin Acetaminophen 650 MG Q6P PRN 08/23 1945 AC PO Atorvastatin Calcium 80 MG 1700 08/24 1700 AC 08/31 PO 1646 Calcitriol 0.25 MCG DAILY 08/24 1000 AC 09/01 PO 0918 Diltiazem HCl 360 MG DAILY 09/01 1000 AC PO Diltiazem HCl 90 MG Q6 08/31 1000 DC 09/01 PO 0539 Febuxostat 40 MG DAILY 08/24 1530 AC 09/01 PO 0917 Furosemide 60 MG DAILY 08/31 1000 AC 09/01 IV 0918 Heparin Sodium 25,000 UNIT Q24H 08/28 1030 AC 09/01 (Porcine) IV 0917 Sodium Chloride 500 ML Hydralazine HCl 25 MG BID 08/23 2200 AC 09/01 PO 0917 Insulin Aspart 0 TIDAC 08/24 0800 AC 08/31 SC 1227 Iron Sucrose 200 MG Q48H 08/31 1600 AC Sodium Chloride 100 ML IV 09/08 1614 Metoprolol Tartrate 25 MG BID 08/30 1115 AC 09/01 PO 0918 Non-Formulary 0 SEE ADMIN CRITERIA 08/31 1430 CAN Medication ANY 09/04 1431 Sevelamer Carbonate 1,600 MG WM 08/24 1700 AC 09/01 PO 0855 Sodium Bicarbonate 1,300 MG BID 08/30 1359 AC 09/01 PO 0918 Warfarin Sodium 7.5 MG COUMADIN 1700 ONE 08/31 1700 DC 08/31 PO 08/31 1701 1645 Results Pertinent Lab Results: Laboratory Tests 09/01 08/31 08/31 0622 1818 0628 Chemistry Sodium (137 - 145 mmol/L) 145 143 Potassium (3.5 - 5.1 mmol/L) 3.8 4.0 Chloride (98 - 107 mmol/L) 107 105 Carbon Dioxide (22 - 30 mmol/L) 25 23 Anion Gap (5 - 16) 14 14 BUN (7 - 17 mg/dL) 62 H 60 H Creatinine (0.5 - 1.0 mg/dL) 3.7 H 3.8 H Estimated GFR (>60 ml/min) 12 L 12 L BUN/Creatinine Ratio (7 - 25 %) 16.8 15.8 Coagulation PT (9.4 - 12.5 SEC) 18.1 H 14.7 H INR (0.90 - 1.19) 1.73 H 1.40 H APTT (25 - 37 SEC) 90 H 76 H 81 H Hematology CBC w Diff NO MAN DIFF REQ WBC (4.8 - 10.8 /CUMM) 11.7 H RBC (4.20 - 5.40 /CUMM) 3.79 L Hgb (12.0 - 16.0 G/DL) 10.6 L Hct (37 - 47 %) 31.9 L MCV (81.0 - 99.0 FL) 84.1 MCH (27.0 - 31.0 PG) 27.9 RDW (11.5 - 14.5 %) 15.6 H Plt Count (130 - 400 /CUMM) 206 MPV (7.4 - 10.4 FL) 10.6 H Gran % (42.2 - 75.2 %) 66.8 Lymphocytes % (20.5 - 51.1 %) 18.8 L Monocytes % (1.7 - 9.3 %) 9.1 Eosinophils % (0 - 5 %) 4.6 Basophils % (0.0 - 2.0 %) 0.7 Absolute Granulocytes (1.4 - 6.5 /CUMM) 7.8 H Absolute Lymphocytes (1.2 - 3.4 /CUMM) 2.2 Absolute Monocytes (0.10 - 0.60 /CUMM) 1.1 H Absolute Eosinophils (0.0 - 0.7 /CUMM) 0.5 Absolute Basophils (0.0 - 0.2 /CUMM) 0.1 PUBS MCHC (33.0 - 37.0 G/DL) 33.2 08/30 08/30 08/30 1740 0600 0530 Chemistry Sodium (137 - 145 mmol/L) 144 Potassium (3.5 - 5.1 mmol/L) 4.1 Chloride (98 - 107 mmol/L) 107 Carbon Dioxide (22 - 30 mmol/L) 21 L Anion Gap (5 - 16) 16 BUN (7 - 17 mg/dL) 56 H Creatinine (0.5 - 1.0 mg/dL) 3.5 H Estimated GFR (>60 ml/min) 13 L BUN/Creatinine Ratio (7 - 25 %) 16.0 Phosphorus (2.5 - 4.5 mg/dL) 4.2 Iron (37 - 170 ug/dL) 57 TIBC (265 - 497 ug/dL) 278 Ferritin (11.1 - 264 ng/mL) 134.0 Rwv-P-Oosbxnewcjn Pept (<125 pg/mL) 99525 H PTH Intact (18.4 - 80.1 pg/ML) 103.1 H Coagulation PT (9.4 - 12.5 SEC) 13.5 H 12.8 H INR (0.90 - 1.19) 1.29 H 1.22 H APTT (25 - 37 SEC) 69 H 83 H Hematology CBC w Diff NO MAN DIFF REQ WBC (4.8 - 10.8 /CUMM) 10.4 RBC (4.20 - 5.40 /CUMM) 3.60 L Hgb (12.0 - 16.0 G/DL) 10.0 L Hct (37 - 47 %) 30.4 L MCV (81.0 - 99.0 FL) 84.3 MCH (27.0 - 31.0 PG) 27.8 RDW (11.5 - 14.5 %) 15.1 H Plt Count (130 - 400 /CUMM) 199 MPV (7.4 - 10.4 FL) 9.3 Gran % (42.2 - 75.2 %) 69.9 Lymphocytes % (20.5 - 51.1 %) 15.6 L Monocytes % (1.7 - 9.3 %) 8.5 Eosinophils % (0 - 5 %) 4.3 Basophils % (0.0 - 2.0 %) 1.7 Absolute Granulocytes (1.4 - 6.5 /CUMM) 7.3 H Absolute Lymphocytes (1.2 - 3.4 /CUMM) 1.6 Absolute Monocytes (0.10 - 0.60 /CUMM) 0.9 H Absolute Eosinophils (0.0 - 0.7 /CUMM) 0.4 Absolute Basophils (0.0 - 0.2 /CUMM) 0.2 PUBS MCHC (33.0 - 37.0 G/DL) 33.0 08/29 1720 Coagulation APTT (25 - 37 SEC) 77 H Imaging/Other Studies: EXAM TYPE: RAD - XRY-PORTABLE CHEST XRAY EXAMINATION: XR PORTABLE CHEST CLINICAL INFORMATION: Desaturation. Shortness of breath. COMPARISON: 08/25/2017 and priors TECHNIQUE: Portable portable 80 degrees upright (time stamp 10:06 AM) view of the chest was obtained. FINDINGS: The patient is rotated. Grossly stable heart and mediastinum. New opacities at the bases right more than left. There is a right effusion and bibasilar consolidation. Given prominence of the central pulmonary vasculature interstitial edema is favored. Vascular calculations in the upper extremities. IMPRESSION: New right effusion and basal opacities. Favor edema.
[2017-09-01] MEDS ORDERED: SODIUM BICARBO325 M1 PO ×2 (11:43→16:11)
[2017-09-01] MEDS ORDERED: FERROUS SULFAT325 M3 PO ×3 (11:43→16:11)
[2017-09-01] MEDS ORDERED: DILTIAZEM 24HR180 M1 PO ×2 (11:43→16:11)
[2017-09-01] MEDS ORDERED: COUMADIN7.5 M1 PO (11:44)
[2017-09-01] MEDS ORDERED: COUMADIN5 M2 PO ×2 (11:46→16:11)
--- NOTE | 2017-09-01 12:55 | PN- Cardiology ---
Subjective Subjective: Continues to feel improved. Objective Vital Signs and I&Os Vital Signs Date Time Temp Pulse Resp B/P B/P Pulse O2 O2 Flow FiO2 Mean Ox Delivery Rate 09/01 0918 79 118/70 09/01 0917 79 118/70 09/01 0800 92 Room Air 09/01 0600 97.7 94 22 118/70 92 Room Air 09/01 0000 Room Air 08/31 2213 98.6 86 20 128/62 91 Room Air 08/31 2132 96 122/60 08/31 2132 103 122/60 08/31 1505 97.8 70 20 140/88 Intake & Output 09/01 1600 09/01 0800 09/01 0000 08/31 1600 08/31 0800 08/31 0000 Intake Total 358.4 600 800 438 540 Output Total 500 800 900 350 200 Balance -141.6 -200 -100 88 340 Intake, IV 238.4 250 300 338 Intake, Oral 120 350 500 100 540 Number 0 0 1 0 Bowel Movements Output, Urine 500 800 900 350 200 Physical Exam: Well-developed, overweight elderly female in no acute distress. Vital signs: See above. HEENT: Normocephalic, atraumatic, EOMI, slightly dry mucous membranes. Neck: No JVD, right carotid bruit. Lungs: Decreased breath sounds otherwise clear. Heart: S1, S2 (irregularly, irregular) with soft (grade 1-2/6) systolic murmur. Abdomen: Soft, nontender, positive bowel sounds. Extremities: 1-2+ bilateral lower extremity edema. Current Medications: Current Medications Sig/Cloe Start time Last Medication Dose Route Stop Time Status Admin Acetaminophen 650 MG Q6P PRN 08/23 1945 AC PO Atorvastatin Calcium 80 MG 1700 08/24 1700 AC 08/31 PO 1646 Calcitriol 0.25 MCG DAILY 08/24 1000 AC 09/01 PO 0918 Diltiazem HCl 360 MG DAILY 09/01 1000 AC 09/01 PO 1135 Diltiazem HCl 90 MG Q6 08/31 1000 DC 09/01 PO 0539 Febuxostat 40 MG DAILY 08/24 1530 AC 09/01 PO 0917 Furosemide 60 MG DAILY 08/31 1000 AC 09/01 IV 0918 Heparin Sodium 25,000 UNIT Q24H 08/28 1030 AC 09/01 (Porcine) IV 0917 Sodium Chloride 500 ML Hydralazine HCl 25 MG BID 08/23 2200 AC 09/01 PO 0917 Insulin Aspart 0 TIDAC 08/24 0800 AC 09/01 SC 1220 Iron Sucrose 200 MG Q48H 08/31 1600 AC Sodium Chloride 100 ML IV 09/08 1614 Metoprolol Tartrate 25 MG BID 08/30 1115 AC 09/01 PO 0918 Non-Formulary 0 SEE ADMIN CRITERIA 08/31 1430 CAN Medication ANY 09/04 1431 Sevelamer Carbonate 1,600 MG WM 08/24 1700 AC 09/01 PO 1215 Sodium Bicarbonate 1,300 MG BID 08/30 1359 AC 09/01 PO 0918 Warfarin Sodium 7.5 MG COUMADIN 1700 ONE 08/31 1700 DC 08/31 PO 08/31 1701 1645 Results Last 48 Hrs of Labs/Mics: Laboratory Tests 09/01/17 0622: Anion Gap 14, Estimated GFR 12 L, BUN/Creatinine Ratio 16.8, PT 18.1 H, INR 1.73 H, APTT 90 H 08/31/17 1818: APTT 76 H 08/31/17 0628: Anion Gap 14, Estimated GFR 12 L, BUN/Creatinine Ratio 15.8, PT 14.7 H, INR 1.40 H, APTT 81 H, CBC w Diff NO MAN DIFF REQ, RBC 3.79 L, MCV 84.1, MCH 27.9 , RDW 15.6 H, MPV 10.6 H, Gran % 66.8, Lymphocytes % 18.8 L, Monocytes % 9.1, Eosinophils % 4.6, Basophils % 0.7, Absolute Granulocytes 7.8 H, Absolute Lymphocytes 2.2, Absolute Monocytes 1.1 H, Absolute Eosinophils 0.5, Absolute Basophils 0.1, PUBS MCHC 33.2 08/30/17 1740: PT 13.5 H, INR 1.29 H, APTT 69 H Assessment/Plan Assessment/Plan [id number]-w-f w/ hx gout, HLD, HTN, DM, CKD s/p RUE AV fistula 06/2016 w/o use necessity, ch anemia on RITO, & PAF s/p electrical CV following a CARI ~2015 w/ recurrence and successful antiarrhythmic Rx w/ chemical CV ~2016 who was in her usual state of health and being seen by nephrology (Jay Charlene, M.D.) when she was discovered to be in a rapid irregularly irregular rhythm and was sent to the ED for an ECG that confirmed AF w/ RVR. Fortunately, she remains asymptomatic and the ventricular response rate has improved to ~70-90s bpm range on metoprolol 25 mg twice daily and diltiazem 360 mg daily. Remains on heparin and warfarin with today's INR 1.73. She received warfarin 7.5 mg on 08/31/2617. Being diuresed with IV furosemide 60 mg daily. Recommendations: * Continue on telemetry. * DVT prophylaxis being addressed by anticoagulation for the atrial fibrillation. * Follow-up on nephrology recommendations. Continue telemetry? Yes
--- NOTE | 2017-09-01 14:19 | Discharge Summary ---
Visit Information Visit Dates Admission Date: 08/23/17 Discharge Date: 09/01/17 Hospital Course Course Attending Physician: Derrick BARBOUR,Sumit Gonzáles Primary Care Physician: Zakiya BARBOUR,[facility] Course: Patient was a 72-year-old female with past medical history significant for paroxysmal atrial fibrillation with previous cardioversions and currently not on anticoagulation per patient's decision due to her concern of bleeding, she stopped anticoagulation after cutting herself and bleeding profusely in the past , status post cardioversion 2 (last one in 2015), diabetes not on any medications currently, diabetic and hypertensive nephropathy confirmed by biopsy , hypertension, hyperlipidemia, previous admission in January 2017 treated for RAMO, chronic kidney disease stage III with AV fistula placed, not mature or needed at this point, sinus bradycardia, atrial fibrillation, diagnosed with right external carotid artery stenosis. Presents this admission with atrial fibrillation with RVR after being seen by her livestock sales representative Dr. Chang. Patient has a [id number] score of 5. Patient's last echo was 2016 and showed a restrictive filling pattern of the left ventricle, stage III diastolic dysfunction, with an EF of 65% during that admission for congestive heart failure. Atrial fibrillation with RVR Patient was placed under monitoring on telemetry. Ekgs and trops were negative. Anticoagulation with IV heparin started again after we ruled out bleeding by CT ABD PELVIS as reason for drop in Hb. [place] stools were negative. Heartrate control was initiated with IV drip of Cardizem and then continued to by mouth and long-acting Cardizem. The importance of anticoagulation therapy in the setting of atrial fibrillation was discussed at length with the patient, the benefits and risks were discussed and she is amenable to AC. Patient was not a candidate for NOACs with her elevated Cr. Coumadin was intially continued along with heparin and heparin was then discontinued it. Upon discharge Cardizem long acting and metoprolol were started, Coumadin was dosed. Blood works were ordered for Monday with recommendations to follow with computer programming professor and PCP in the next week. UTI: Patient complaining of dysuria, urinary frequency, with urinalysis showing packed WBCs. Ceftriaxone was administered for 4 days and course. Hypertension Contorlled with medications above. DM Diabetes currently diet controlled Hemoglobin A1c of 5.[address] on insulin sliding scale and Accu-Cheks History of CAD with significant right external carotid artery stenosis from previous admission , has not followed up with vascular surgery outpatient Continued aspirin 81 mg daily. Referred to vascular surgery for outpatient management CHF acute on chronic diastolic heart failure Patient was found to have cardiomegaly with central vascular congestion and right pleural effusion on x-ray. IV lasix was administered initially, upon discharge patient was recommended to take an extra dose of torsemide for 3 days and then continue daily. With recommendation to follow with computer programming professor next week. Elevated ALKP Elevated alkaline phosphatase of greater than 400 and GGT 192. AST and ALT are normal. Limited right upper quadrant ultrasound suggests acalculus cholecystitis. HIDA scan showed no abnormality. Patient had no right upper quadrant pain or any symptoms postprandially. Patient denies heavy alcohol use. Recommended to follow with PCP in outpatient. Hypokalemia Resolved CKD Patient follows with Dr. Chang Creatinine near baseline. RUE no interventions. Patient was recommended to follow with Dr. Chang as is scheduled. anemia: Most likely Secondary to chronic disease. -Epogen as per nephrology outpatient DVT prophylaxis: Currently on IV heparin Diet: Diabetic diet with salt restriction Code: Full code Patient was discharged with recommendations below: Allergies: Coded Allergies: sitagliptin (From [place]) (Severe, THROAT CLOSURE 02/05/17) Disposition Summary Disposition Principal Diagnosis: Atrial fibrillation with RVR Additional Diagnosis: UTI Discharge Disposition: home or self care Discharge Instructions General Discharge Information Code Status: Full Code Patient's Diet: Diabetic Patient's Activity: Self limted Follow-Up Instructions/Appts: Please follow with your PCP within one week of discharge. Please follow with your computer programming professor within one week of discharge. Please follow with your livestock sales representative within one week of discharge. Please do your PT test on the day instructed. Please follow with your computer programming professor with your lab results. Medications at Discharge Discharge Medications: Continue taking these medications: Febuxostat (Uloric) 40 MG TABLET 1 Tablet ORAL DAILY Qty = 30 Comments: Last Taken: 09/01/17 Time: 9:20 AM Torsemide (Torsemide) 20 MG TABLET 1 Tablet ORAL DAILY Qty = 30 Instructions: Please take 2 pills on 09/02 & 09/03 & 09/04/17, then continue one pill daily. Comments: Last Taken: NOT GIVEN IN HOSPITAL (RECEIVED LASIX) Time: Aspirin (Aspirin*) 81 MG TAB.CHEW 1 Tablet ORAL DAILY Comments: Last Taken: NOT GIVEN IN HOSPITAL Time: Hydralazine HCl (Hydralazine HCl) 25 MG TABLET 1 Tablet ORAL DAILY Comments: Last Taken: 09/01/17 Time: 9:20 AM Rosuvastatin Calcium (Crestor) 10 MG TABLET 1 Tablet ORAL DAILY Qty = 30 Comments: Last Taken: 08/31/17 Time: 4:45 PM Sevelamer Carbonate (Renvela) 800 MG TABLET 2 Tablet ORAL WITH MEALS Qty = 180 Comments: Last Taken: 09/01/17 Time: 12:15 PM Calcitriol (Calcitriol) 0.25 MCG CAPSULE 1 Capsule ORAL DAILY Qty = 30 Comments: Last Taken: 09/01/17 Time: 9:20 AM Start taking the following new medications: Ferrous Sulfate (Ferrous Sulfate) 325 MG (65 MG IRON) TABLET 1 Tablet ORAL THREE TIMES DAILY Qty = 60 No Refills Instructions: . Comments: Last Taken: NOT GIVEN IN HOSPITAL Time: Warfarin Sodium (Coumadin) 5 MG TABLET 1 Tablet ORAL DAILY Qty = 30 No Refills Instructions: . Comments: Last Taken: 09/01/17 Time: 4:30 PM Metoprolol Tartrate (Metoprolol Tartrate) 25 MG TABLET 25 Milligram ORAL TWICE DAILY Qty = 60 No Refills Instructions: . Comments: Last Taken: 09/01/17 Time: 9:20 AM Diltiazem HCl (Diltiazem 24HR Cd) 180 MG CAP.ER.24H 360 Milligram ORAL DAILY Qty = 30 Refills = 1 Instructions: . Comments: Last Taken: 09/01/17 Time: 11:35 AM Sodium Bicarbonate (Sodium Bicarbonate) 325 MG TABLET 1,300 Milligram ORAL TWICE DAILY Qty = 30 No Refills Instructions: . Comments: Last Taken: 09/01/17 Time: 9:20 AM Copies To: Zakiya BARBOUR,Princess Chang MD,Jay Kee Attending MD Review Statement Documenting Attending: Derrick BARBOUR,Sumit Gonzáles
--- NOTE | 2017-09-01 14:43 | PN- Att Addend ---
Attending MD Review Statement Attending Statement Attending MD Statement: examined this patient, discuss w/resident/PA/IT ACCOUNT MANAGER, agreed w/resident/PA/IT ACCOUNT MANAGER, reviewed EMR data (avail), discussed w/nursing, discussed w/ case mgmt Attending Assessment/Plan: Laboratory Tests 09/01/17 0622: Anion Gap 14, Estimated GFR 12 L, BUN/Creatinine Ratio 16.8, PT 18.1 H, INR 1.73 H, APTT 90 H 08/31/17 1818: APTT 76 H Vital Signs Date Time Temp Pulse Resp B/P B/P Pulse O2 O2 Flow FiO2 Mean Ox Delivery Rate 09/01 0918 79 118/70 09/01 0917 79 118/70 09/01 0800 92 Room Air 09/01 0600 97.7 94 22 118/70 92 Room Air 09/01 0000 Room Air 08/31 2213 98.6 86 20 128/62 91 Room Air 08/31 2132 96 122/60 08/31 2132 103 122/60 08/31 1505 97.8 70 20 140/88 72 yr old female with pmh of p afib not on AC, cardioversion times 2, CKD-5 with AV fistula but not on HD , HTN, HLD,DM- not on meds, Stage 3 diastolic chf admitted with afib with rvr. Afib with RVR- cont on cardizem drip. cardiology following the pt. Currently on coumadin and INR is 1.73 . on cardizem 360 starting today. Diastolic chf in settings of CKD-5, pt also has signs of Right heart failure secondary to severe pulm htn. being dced on torsemide 40mg qd for 3 days and then 20mg after that daily. INcreased LFTs- chelsey ALP and GGT, RUQ ultrasound done reveals acalculous cholecystisis ? and GB sludge. HIDA scan negative. Pt on exam has no RUQ tenderness. Gout- cont on uloric. CKD- stage 5. nephrology following. Cr Stable. dc pt today in stable condition. d/w pt the care plan. Case managment arranging for oxygen.
[2017-09-01 15:36] VITALS: BP 126/68
[2017-09-01] MEDS ORDERED: METOPROLOL TART25 M1 PO (16:11)
== END 2017-09-01 18:00 | DRG 308 ==
LOC: DELPENDDIS → ERH 16:17 → 1NO 18:46 → ERHI 18:46 → ENRESERV 19:11 → 1NO 20:28 → ENPENDDIS 08-25 08:07 → 1NO 08-25 09:25
PROVIDERS: Emergency Medicine; Hospitalist; Internal Medicine; Radiology Vascular & Interventional Radiology; Specialist; Student in an Organized Health Care Education/Training Program
DX: I48.0 Paroxysmal atrial fibrillation (principal); I50.33 Acute on chronic diastolic (congestive) heart failure; I13.2 Hypertensive heart and chronic kidney disease with heart failure and with stage 5 chronic kidney disease, or end stage renal disease; E87.5 Hyperkalemia; E11.21 Type 2 diabetes mellitus with diabetic nephropathy; N18.5 Chronic kidney disease, stage 5; I27.29 Other secondary pulmonary hypertension; N25.81 Secondary hyperparathyroidism of renal origin; N39.0 Urinary tract infection, site not specified; E11.22 Type 2 diabetes mellitus with diabetic chronic kidney disease; D63.1 Anemia in chronic kidney disease; B96.89 Other specified bacterial agents as the cause of diseases classified elsewhere; I50.812 Chronic right heart failure; I25.10 Atherosclerotic heart disease of native coronary artery without angina pectoris; I65.21 Occlusion and stenosis of right carotid artery; M10.9 Gout, unspecified; E78.5 Hyperlipidemia, unspecified
CPT/HCPCS: 1NP; 36415; 71045; 74176; 78226; 81001; 82436; 87086; 93005; 93010; 93306; 96374; 96375; 97110-GO; 97116-GO; 97161-GP; 97530-GO; 99291; A9537; J0696; J1644; J1756; J1940

== ENCOUNTER 2017-09-09 12:00 | Inpatient (IN) | payer OTHER, MEDICARE ==
[~2017-09-09] VITALS: Ht 175.3 cm; Wt 102.6 kg
[~2017-09-09 12:00] MED LIST changes: +CALCITRIOL0.25 MC1 PO; +COUMADIN5 M2 PO; +COUMADIN7.5 M1 PO; +DILTIAZEM 24HR180 M1 PO; +FERROUS SULFAT325 M3 PO; +METOPROLOL TART25 M1 PO; +SODIUM BICARBO325 M1 PO
--- NOTE | 2017-09-09 12:31 | ED DYSPNEA/ASTHMA COMPLAINT ---
History of Present Illness General Chief Complaint: General Adult Stated Complaint: BIBA WITH PROBLEM BREATHING Source: patient, old records, EMS Exam Limitations: no limitations Vital Signs & Intake/Output Vital Signs & Intake/Output Vital Signs Date Time Temp Pulse Resp B/P B/P Pulse O2 O2 Flow FiO2 Mean Ox Delivery Rate 09/09 1410 112 160/95 09/09 1354 97.8 112 22 160/95 94 Nasal 2.0L Cannula 09/09 1247 96 Nasal Cannula 09/09 1240 135 159/88 09/09 1212 98.1 135 26 159/88 89 Nasal 2.0L Cannula Allergies Coded Allergies: sitagliptin (From [facility]UG[facility]) (Severe, THROAT CLOSURE 02/05/17) Reconcile Medications Calcitriol 0.25 MCG CAPSULE 1 CAP PO DAILY SUPPLEMENT (Reported) Diltiazem HCl (Diltiazem 24HR Cd) 180 MG CAP.ER.24H 360 MG PO DAILY heart rate . Febuxostat (Uloric) 40 MG TABLET 1 TAB PO DAILY UNKNOWN (Reported) Ferrous Sulfate 325 MG (65 MG IRON) TABLET 1 TAB PO TID Iron storage . Hydralazine HCl 25 MG TABLET 1 TAB PO DAILY BP (Reported) Metoprolol Tartrate 25 MG TABLET 25 MG PO BID Heart rate . Rosuvastatin Calcium (Crestor) 10 MG TABLET 1 TAB PO DAILY HYPERLIPIDEMIA Sevelamer Carbonate (Renvela) 800 MG TABLET 2 TAB PO WM CKD Sodium Bicarbonate 325 MG TABLET 1,300 MG PO BID KIDNEY HEALTH . Torsemide 20 MG TABLET 1 TAB PO DAILY WATER RETENTION (Reported) Please take 2 pills on 09/02 & 09/03 & 09/04/17, then continue one pill daily. Warfarin Sodium (Coumadin) 5 MG TABLET 1 TAB PO DAILY BLOOD THINNER . Triage Note: BIBA FOR AFIB WITH SOB. PT WAS DISCHARGED FROM [facility] 1 WEEK AGO, WAS ADMITTED FOR AFIB. HISTORY OF ESRF, NOT YET ON DIALYSIS, DIABETIC, GLUCOSE 240. THIS AM FELT SOB AND ANXIOUS. REPORTS INCREASE BLE EDEMA-LEFT FOOT. ON HOME OXYGEN 2 LITER. UPON ARRIVAL PT SOB, DENEIS PAIN. SATS 88 ON 2 LITERS, O2 INCREASESD TO 4 LITERS. IN [place] ON MONITOR HEART RATE 135. ALERT, ORIENTED, SKIN WARM AND DRY Triage Nurses Notes Reviewed? yes Onset: Gradual Duration: worse persistent since (1 day) Timing: recent history Severity: moderate Activities at Onset: getting out of shower Prior Episodes/Possible Cause: occasional episodes Modifying Factors: Improves With: immobilization. Worsens With: movement. Associated Symptoms: cough, edema HPI: Patient is a 72-year-old female with history of atrial fibrillation, renal failure presenting to the emergency department she complained of worsening dyspnea. Patient presents she was recently discharged from the hospital approximately one week ago where she was diagnosed with atrial fibrillation. She was sent home on home oxygen and Coumadin. She's been taking all medications as prescribed. Shortness of breath got worse today when she got out of the shower. Denies any palpitations or chest pain. Exertion seemed to make the shortness of breath worse, nothing seems to make it better. She does report that she feels slightly improved now that she has the oxygen on. Denies any associated abdominal pain. She does report increasing lower extremity edema has been getting worse since she was discharged from the hospital one week ago. No recent travel. Denies recent antibiotic use. Denies any hemoptysis. Denies congestion or cough. (Fozia Lino) Past History Travel History Traveled to [place] past 21 day No Medical History Any Pertinent Medical History? see below for history Neurological: NONE EENT: NONE Cardiovascular: AFIB (refuses/ not started on antico), aflutter, hypertension Respiratory: NONE Gastrointestinal: NONE Hepatic: NONE Renal: CKD biopsy-proven diabetic/hypertensive nephropathy Musculoskeletal: gout Psychiatric: NONE Endocrine: diabetes, she reports that her diabetes has been referred for roughly 10 years. She denies any retinopathy. 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 No (Fozia Lino) Review of Systems Review of Systems Constitutional: Reports: no symptoms. Comments Review of systems: See HPI, All other systems negative. Constitutional, no chills fever or weight loss HEENT: No visual changes no sore throat no congestion Cardiovascular: No chest pain ,palpitation , orthopnea or ankle swelling Skin, no jaundice no rashes Respiratory: No cough sputum or hemoptysis GI: No nausea no vomiting : No dysuria No hematuria Muscle skeletal: no back pain, no neck pain, Neurologic: No numbness no confusion Psych: No stress anxiety or depression,. Heme/endocrine: No bruising no bleeding no polyuria or polydipsia Immunology: No splenectomy or history of AIDS (Vimal JARAMILLO,Fozia) Physical Exam Physical Exam General Appearance: well developed/nourished, alert, awake, mild distress Respiratory: quiet respiration, accessory muscle use Comments: Well-developed well-nourished person in no acute distress HEENT: Pupils equally round and reactive to light and accommodation. Nose is atraumatic. External auditory canal and Tympanic membranes clear. Pharynx normal. No swelling or edema. Neck: Supple, no lymphadenopathy Back: Nontender Cardiovascular: irRegular rate and rhythm Respiratory: Chest nontender. No respiratory distress.breath sounds clear to auscultation bilaterally Abdomen: Soft, obese, nontender nondistended, no appreciable organomegaly. Normal bowel sounds. No ascites Extremity: 2+ edema in the lower extremities bilaterally, no calf tenderness to palpation, normal and equal pulses. Mildly tender to palpation of the dorsum of the left foot. Small area of ecchymosis/erythema approximately 6 cm in diameter , mildly edematous over this area. Mildly warm. Neuro: Alert oriented x3, motor sensory normal, cranial nerves II through XII grossly intact. Skin: No appreciable rash on exposed skin, skin is warm and dry. Psych: Mood and affect is normal, memory and judgment is normal. Core Measures ACS in differential dx? Yes CVA/TIA Diagnosis No Sepsis Present: No Sepsis Focused Exam Completed? No (Fozia Lino) Progress Differential Diagnosis: asthma, AMI, bronchitis, costochondritis, CHF, COPD, musculoskeletal pain, pericarditis, pulmonary embolism, pneumonia, dvt, cellulits Plan of Care: Orders Procedure Date/time Status Heart Healthy Diet 09/09 D Active OXYGEN SETUP (GEN) 09/09 1502 Active Saline Lock 09/09 1502 Active Admit to inpatient 09/09 1502 Active Patient Data 09/09 1502 Active Vital Signs 09/09 1502 Active Activity/Ambulation 09/09 1502 Active Code Status 09/09 1502 Active Add-on Test (ER Only) 09/09 1339 Active D-DIMER 09/09 1311 Complete RAPID VIRAL INFLUENZA A 09/09 1304 Complete Telemetry/Lock Up Worker 09/09 1230 Active TROPONIN LEVEL 09/09 1230 Complete PARTIAL THROMBOPLASTIN TIME 09/09 1230 Complete PROTHROMBIN TIME 09/09 1230 Complete COMPREHENSIVE METABOLIC PANEL 09/09 1230 Complete CBC WITHOUT DIFFERENTIAL 09/09 1230 Complete B-TYPE NATRIURETIC PEP (BNP) 09/09 1230 Complete EKG 09/09 1209 Active Current Medications Sig/Cole Start time Last Medication Dose Stop Time Status Admin Diltiazem HCl 125 MG Q24H 09/09 1515 UNVr (Cardizem DRIP) Dextrose/Water 100 ML (Dextrose 5%) Laboratory Tests 09/09/17 1311: PT 16.8 H, INR 1.61 H, APTT 34, D-Dimer High Sensitivty < 200 09/09/17 1230: Anion Gap 16, Estimated GFR 15 L, BUN/Creatinine Ratio 23.9, Glucose 217 H, Calcium 9.6, Total Bilirubin 0.8, AST 30, ALT 22, Alkaline Phosphatase 339 H, Troponin I < 0.01, Fqk-K-Gkjstpasvdj Pept 34512 H, Total Protein 7.2, Albumin 4.0, Globulin 3.2, Albumin/Globulin Ratio 1.3, CBC w Diff NO MAN DIFF REQ, RBC 4.02 L, MCV 83.6, MCH 27.4, MCHC 32.8 L, RDW 15.8 H, MPV 9.3, Gran % 79.5 H, Lymphocytes % 11.2 L, Monocytes % 5.4, Eosinophils % 2.8, Basophils % 1.1, Absolute Granulocytes 10.6 H, Absolute Lymphocytes 1.5, Absolute Monocytes 0.7 H, Absolute Eosinophils 0.4, Absolute Basophils 0.1 Microbiology 09/09 1311 NASOPHARYN: Influenza Virus A & B Rapid Smear - COMP Patient had relief with IV Cardizem bolus, heart rate went from the 120s to 95, seemed to trend up again. Patient given a second dose of IV Cardizem. Heart race responded to Cardizem but then came back up. IV Cardizem drip initiated after discussion with Dr. vogt as heart rate currently is on seeing up to the 120s. Patient will be admitted to telemetry for rapid atrial fibrillation not controlled with oral medications. Still awaiting callback from cardiology. Diagnostic Imaging: Viewed by Me: Radiology Read, Ultrasound. Discussed w/RAD: Radiology Read, Ultrasound. Radiology Impression: PATIENT: GILL CUETO PRESENT AGE: 72 PATIENT ACCOUNT NO: [id number] : 47 LOCATION: ER ORDERING PHYSICIAN: Fozia JARAMILLO SERVICE DATE: 09/09/17 EXAM TYPE: US - US-EXT BILAT VENOUS DOPPLER EXAMINATION: US TRIPLEX OF LOWER EXTREMITIES, BILATERAL CLINICAL INFORMATION: Bilateral lower extremity swelling. COMPARISON: 02/05/2017 TECHNIQUE: Color-flow triplex imaging with spectral analysis and compression Doppler were performed on the lower extremities. The chief engineer's helper comments the study is limited secondary to body habitus. FINDINGS: Respiratory variation, normal compression and augmented flow are noted throughout the lower extremities. The visualized common femoral vein, superficial femoral vein, profunda femoral vein, popliteal vein and midcalf peroneal and posterior tibial venous segments show no evidence of deep venous thrombosis. There is no Fierro's cyst. IMPRESSION: Limited study as above. No evidence of deep venous thrombosis involving the lower extremities. DICTATED BY: Mignon Cervantes MD DATE/TIME DICTATED:09/09/171426 SENIOR RISK MANAGER:HANNAH DATE/TIME TRANSCRIBED:09/09/171426 CONFIDENTIAL, DO NOT COPY WITHOUT APPROPRIATE AUTHORIZATION. <Electronically signed in Other Vendor System> SIGNED BY: Mignon Cervantes MD 09/09/17 1446, PATIENT: GILL CUETO PRESENT AGE: 72 PATIENT ACCOUNT NO: [id number] : 47 LOCATION: [facility] ORDERING PHYSICIAN: Fozia JARAMILLO SERVICE DATE: 09/09/17 EXAM TYPE: RAD - XRY-PORTABLE CHEST XRAY EXAMINATION: XR PORTABLE CHEST CLINICAL INFORMATION: Shortness of breath. Lower extremity swelling. Rule out pneumonia, cardiomegaly COMPARISON: 08/30/2017. TECHNIQUE: Portable frontal view of the chest was obtained. FINDINGS: Cardiac silhouette is enlarged. There is pulmonary venous congestion and mild interstitial edema, similar to prior. There is elevation the right hemidiaphragm due to a small moderate-sized right pleural effusion, likely with associated right lower lobe atelectasis. This right-sided effusion is increased in size from prior. Probable small left pleural effusion is present as well. No definite superimposed consolidation, though bibasilar airspace disease is difficult to exclude on these images. No acute osseous findings. IMPRESSION: Cardiopulmonary with pulmonary venous congestion and interstitial edema, similar to prior. Increased size of the small to moderate right pleural effusion. Trace left effusion. DICTATED BY: Vini Carrintgon MD DATE/ TIME DICTATED:09/09/171314 SENIOR RISK MANAGER:HANNAH DATE/TIME TRANSCRIBED: 09/09/171314 CONFIDENTIAL, DO NOT COPY WITHOUT APPROPRIATE AUTHORIZATION. < Electronically signed in Other Vendor System> SIGNED BY: Vini Carrington MD 09/09/17 1321 Initial ED EKG: rapid afib 130 bpm (Fozia Lino) Departure Departure Time of Disposition: 1507 Disposition: STILL A PATIENT Condition: Stable Clinical Impression Primary Impression: Rapid atrial fibrillation Secondary Impressions: Dyspnea Qualifiers: Dyspnea type: unspecified Qualified Code: R06.00 - Dyspnea, unspecified Referrals: Cesia Sigala MD (PCP/Family) Departure Forms: Customer Survey General Discharge Information Admission Note Spoke With: Mariajose Esparza MD Documentation of Exam: Documentation of any treatments & extenuating circumstances including Concerns Regarding Discharge (functional status, medication knowledge or non-compliance, living conditions, etc.) that warrant an admission rather than observation: Patient requiring IV Cardizem drip for rapid atrial fibrillation, trend inr to therapeutic level, cardiology consultation, telemetry monitoring, medication management. Discharge at this time is medically harmful. Continue to observe ecchymotic/erythematous area on the left foot, if redness spreads consider treating for cellulitis. (Fozia Lino) PA/TYPE CUTTER Co-Sign Statement Statement: ED Attending supervision documentation- x I saw and evaluated the patient. I have also reviewed all the pertinent lab results and diagnostic results. I agree with the findings and the plan of care as documented in the PA's/TYPE CUTTER's documentation. Rapid afib with poor control despite IV cardizem bolus requiring drip, cellulitis LE [] I have reviewed the ED Record and agree with the PA's/TYPE CUTTER's documentation. [] Additions or exceptions (if any) to the PAs/TYPE CUTTER's note and plan are summarized below: [] (Raji BARBOUR,Isaiah) Critical Care Note Critical Care Note Critical Care Time: 30-74 min (Fozia Lino)
[2017-09-09 12:53] LABS: ABSOLUTE BASOPHIL COUNT 0.1 /CUMM (0.0-0.2); ABSOLUTE EOSINOPHIL COUNT 0.4 /CUMM (0.0-0.7); ABSOLUTE GRANULOCYTE CT 10.6 /CUMM (1.4-6.5); ABSOLUTE LYMPH COUNT 1.5 /CUMM (1.2-3.4); ABSOLUTE MONOCYTE COUNT 0.7 /CUMM (0.10-0.60); BASOPHIL % 1.1 % (0.0-2.0); EOSINOPHIL % 2.8 % (0-5); GRANULOCYTE % 79.5 % (42.2-75.2); HEMATOCRIT 33.6 % (37-47); MEAN CORPUSCULAR HGB 27.4 PG (27.0-31.0); MEAN CORPUSCULAR HGB CONC 32.8 G/DL (33.0-37.0); MEAN CORPUSCULAR VOLUME 83.6 FL (81.0-99.0); MEAN PLATELET VOLUME 9.3 FL (7.4-10.4); PLATELET COUNT 239 /CUMM (130-400); RBC DISTRIBUTION WIDTH 15.8 % (11.5-14.5); RED BLOOD CELL CT 4.02 /CUMM (4.20-5.40); WHITE BLOOD CELL COUNT 13.3 /CUMM (4.8-10.8)
--- NOTE | 2017-09-09 13:21 | RADIOLOGY REPORT ---
EXAMINATION: XR PORTABLE CHEST CLINICAL INFORMATION: Shortness of breath. Lower extremity swelling. Rule out pneumonia, cardiomegaly COMPARISON: 08/30/2017. TECHNIQUE: Portable frontal view of the chest was obtained. FINDINGS: Cardiac silhouette is enlarged. There is pulmonary venous congestion and mild interstitial edema, similar to prior. There is elevation the right hemidiaphragm due to a small moderate-sized right pleural effusion, likely with associated right lower lobe atelectasis. This right-sided effusion is increased in size from prior. Probable small left pleural effusion is present as well. No definite superimposed consolidation, though bibasilar airspace disease is difficult to exclude on these images. No acute osseous findings. IMPRESSION: Cardiopulmonary with pulmonary venous congestion and interstitial edema, similar to prior. Increased size of the small to moderate right pleural effusion. Trace left effusion.
[2017-09-09 13:29] LABS: PT 16.8 SEC (9.4-12.5); PTT 34 SEC (25-37)
--- NOTE | 2017-09-09 14:46 | ULTRASOUND REPORT ---
EXAMINATION: US TRIPLEX OF LOWER EXTREMITIES, BILATERAL CLINICAL INFORMATION: Bilateral lower extremity swelling. COMPARISON: 02/05/2017 TECHNIQUE: Color-flow triplex imaging with spectral analysis and compression Doppler were performed on the lower extremities. The campus supervisor comments the study is limited secondary to body habitus. FINDINGS: Respiratory variation, normal compression and augmented flow are noted throughout the lower extremities. The visualized common femoral vein, superficial femoral vein, profunda femoral vein, popliteal vein and midcalf peroneal and posterior tibial venous segments show no evidence of deep venous thrombosis. There is no Fierro's cyst. IMPRESSION: Limited study as above. No evidence of deep venous thrombosis involving the lower extremities.
--- NOTE | 2017-09-09 17:19 | History & Physical ---
Emily Juarez 09/09/17 1714: General Information and HPI MD Statement: I have seen and personally examined GILL CUETO and documented this H&P. The patient is a 72 year old F who presented with a patient stated chief complaint of [SOB]. Source of Information: patient, family, old records Exam Limitations: no limitations History of Present Illness: 72-year-old lady with past medical history of A. fib on warfarin Cardizem and metoprolol, CKD, moderate to severe pulmonary hypertension discharge 7 days ago from hospital with diagnosis of A. fib and back to the hospital with chief complaint of shortness of breath. it should be noted that patient was discharged on 2 L oxygen due to desaturation , however she was not using it 24 hours and was off oxygen at nights. Patient reports she is discharge she's been having trouble breathing on exertion, no coughing, fever, melena diarrhea, constipation, chest pain. She reports she is having mild abdominal pain and nausea after some medication but she doesn't know which one causes it. She is also port increased swelling of the legs and also redness on the dorsal foot with mild tenderness, he does not remember any trauma. The patient supposedly wanted to see a plant assigner Dr. Aponte and her last sawyer this week. Vital signs in ED where notable for elevated heart rate 130s, no fever Abdomen notable WBC 13.3, hemoglobin 11, creatinine 3.1, BUN 74, sodium 146 Alkaline phosphatase is 339, BNP 73896, troponin 0.01, d-dimer less than 200, INR 1.61 Doppler of the legs ruled out DVT CXR : Cardiopulmonary with pulmonary venous congestion and interstitial edema, similar to prior. Increased size of the small to moderate right pleural effusion. Trace left effusion. Allergies/Medications Allergies: Coded Allergies: sitagliptin (From [id number]) (Severe, THROAT CLOSURE 02/05/17) Home Med list Calcitriol 0.25 MCG CAPSULE 1 CAP PO DAILY SUPPLEMENT (Reported) Diltiazem HCl (Diltiazem 24HR Cd) 180 MG CAP.ER.24H 360 MG PO DAILY heart rate . Febuxostat (Uloric) 40 MG TABLET 1 TAB PO DAILY UNKNOWN (Reported) Ferrous Sulfate 325 MG (65 MG IRON) TABLET 1 TAB PO TID Iron storage . Hydralazine HCl 25 MG TABLET 1 TAB PO DAILY BP (Reported) Metoprolol Tartrate 25 MG TABLET 25 MG PO BID Heart rate . Rosuvastatin Calcium (Crestor) 10 MG TABLET 1 TAB PO DAILY HYPERLIPIDEMIA Sevelamer Carbonate (Renvela) 800 MG TABLET 2 TAB PO WM CKD Sodium Bicarbonate 325 MG TABLET 1,300 MG PO BID KIDNEY HEALTH . Torsemide 20 MG TABLET 1 TAB PO DAILY WATER RETENTION (Reported) Please take 2 pills on 09/02 & 09/03 & 09/04/17, then continue one pill daily. Warfarin Sodium (Coumadin) 5 MG TABLET 1 TAB PO DAILY BLOOD THINNER . Past History Travel History Traveled to [place] past 21 day No Medical History Neurological: NONE EENT: NONE Cardiovascular: AFIB (refuses/ not started on antico), aflutter, hypertension Respiratory: NONE Gastrointestinal: NONE Hepatic: NONE Renal: CKD biopsy-proven diabetic/hypertensive nephropathy Musculoskeletal: gout Psychiatric: NONE Endocrine: diabetes, she reports that her diabetes has been referred for roughly 10 years. She denies any retinopathy. Blood Disorders: anemia Cancer(s): NONE BED SETTER/Reproductive: NONE History of MRSA: No History of VRE: No History of CDIFF: No Surgical History Surgical History: non-contributory, 2 YEARS AGO (DR MEEHAN) [place] Past Family/Social History Psychosocial History ETOH Use: denies use Illicit Drug Use: denies illicit drug use Review of Systems Review of Systems Constitutional: Reports: see HPI. Exam & Diagnostic Data Last 24 Hrs of Vital Signs/I&O Vital Signs Date Time Temp Pulse Resp B/P B/P Pulse O2 O2 Flow FiO2 Mean Ox Delivery Rate 09/09 1705 97.4 112 18 159/87 97 09/09 1410 112 160/95 09/09 1354 97.8 112 22 160/95 94 Nasal 2.0L Cannula 09/09 1247 96 Nasal Cannula 09/09 1240 135 159/88 09/09 1212 98.1 135 26 159/88 89 Nasal 2.0L Cannula Intake & Output 09/09 1600 09/09 0800 09/09 0000 Intake Total Output Total Balance Patient 94.801 kg Weight Weight Reported by Patient Measurement Method Physical Exam General Appearance Alert, Oriented X3, Cooperative Cardiovascular irrigular Lungs bilateral basal crackles Abdomen Normal Bowel Sounds, Soft Extremities bilateral severe edema iwth redness of the dorsal side of the left foot with mild tenderness Assessment/Plan Assessment: 72-year-old lady with past medical history of A. fib on warfarin Cardizem and metoprolol, CKD, moderate to severe pulmonary hypertension discharge 7 days ago from hospital with diagnosis of A. fib and back to the hospital with chief complaint of shortness of breath. it should be noted that patient was discharged on 2 L oxygen due to desaturation , however she was not using it 24 hours and was off oxygen at nights. Patient reports she is discharge she's been having trouble breathing on exertion, no coughing, fever, melena diarrhea, constipation, chest pain. She reports she is having mild abdominal pain and nausea after some medication but she doesn't know which one causes it. She is also port increased swelling of the legs and also redness on the dorsal foot with mild tenderness, he does not remember any trauma. The patient supposedly wanted to see a plant assigner Dr. Aponte and her last sawyer this week. Vital signs in ED where notable for elevated heart rate 130s, no fever Abdomen notable WBC 13.3, hemoglobin 11, creatinine 3.1, BUN 74, sodium 146 Alkaline phosphatase is 339, BNP 54876, troponin 0.01, d-dimer less than 200, INR 1.61 Doppler of the legs ruled out DVT CXR : Cardiopulmonary with pulmonary venous congestion and interstitial edema, similar to prior. Increased size of the small to moderate right pleural effusion. Trace left effusion. Notable physical findings Assessment and plan A. fib with RVR with low INR -Admit to telemetry -Cardiology consult placed -Put the patient on IV Cardizem and titrate to control the heart rate -Continue metoprolol -put The patient on IV heparin and give 5 mg of warfarin today and check INR tomorrow -EKG and troponin 2 CKD with volume overload -Nephrology consult placed -IV Lasix daily -BEP daily -c/w sevelamer calcium bicarbonate -c/w statin History of hypertension, gout, anemia -Hold hydralazine for now -Continue Uloric -Continue iron supplementation Most likely cellulitis of the left foot -bc x2 - IV cefazolin Q12 per pharmacy recommendation -CBC in the morning Full code, DVT prophylaxis is mechanical and IV heparin, Tylenol for pain, heart healthy diet As Ranked By This Provider Problem List: 1. Afib 2. Rapid atrial fibrillation 3. Chronic kidney disease (CKD) Core Measures/Misc (04/30) Acute Coronary Syndrome ACS Diagnosis: No Congestive Heart Failure Congestive Heart Failure Diagnosis No Cerebrovascular Accident CVA/TIA Diagnosis: No VTE (View Protocol) VTE Risk Factors Acute Medical Illness No Mechanical VTE Prophylaxis d/t N/A MechProphylax Ordered No VTE Pharm Prophylaxis d/t NA PharmProphylax ordered Sepsis (View protocol) Sepsis Present: No Isaias BARBOUR,Mariajose 09/09/17 1802: Attending MD Review Statement Attending Statement Attending MD Statement: examined this patient, discuss w/resident/PA/SECURITY SYSTEM ANALYST, agreed w/resident/PA/SECURITY SYSTEM ANALYST, discussed with family, reviewed EMR data (avail), discussed with nursing, reviewed images, amended to note Attending Assessment/Plan: 72 y/o F with pmh sig for A. fib on warfarin, Cardizem and metoprolol, CKD stage 4, moderate to severe pulmonary hypertension, recently admitted to with rapid afib, uti, chf, was discharged about a week ago now presenting with increasing shortness of breath. Patient also has developed otic stomach edema as well as some erythema on the left foot. Patient's daughter is also present at bedside and she is very unhappy due to the fact that her mom got worse since her last admission. She thinks that all of her cardiac medications are giving her side effects of lower extremity swelling. Off note, patient did get diuresis with IV Lasix on the last admission but was discharged on by mouth torsemide. She denies any palpitations which was found to be in rapid A. fib again in the emergency room. She has dry cough. She was also feeling somewhat nauseous but did not vomit. She denies any chest pain. She noticed increased swelling of bilateral lower extremity and some erythema on the left foot dorsal aspect which is also painful. Vital Signs Date Time Temp Pulse Resp B/P B/P Pulse O2 O2 Flow FiO2 Mean Ox Delivery Rate 09/09 1705 97.4 112 18 159/87 97 09/09 1410 112 160/95 09/09 1354 97.8 112 22 160/95 94 Nasal 2.0L Cannula 09/09 1247 96 Nasal Cannula 09/09 1240 135 159/88 09/09 1212 98.1 135 26 159/88 89 Nasal 2.0L Cannula on exam; aox3, nad. cv; s1, s2, irregular, tachy. resp; + crackles b/l bases. abd; soft, nt, bs+ ext: 2+ edema b/l le. skin; + erythema on dorsal aspect left foot. Laboratory Tests 09/09 09/09 1311 1230 Chemistry Sodium (137 - 145 mmol/L) 146 H Potassium (3.5 - 5.1 mmol/L) 4.8 Chloride (98 - 107 mmol/L) 103 Carbon Dioxide (22 - 30 mmol/L) 26 Anion Gap (5 - 16) 16 BUN (7 - 17 mg/dL) 74 H Creatinine (0.5 - 1.0 mg/dL) 3.1 H Estimated GFR (>60 ml/min) 15 L BUN/Creatinine Ratio (7 - 25 %) 23.9 Glucose (65 - 99 mg/dL) 217 H Calcium (8.4 - 10.2 mg/dL) 9.6 Total Bilirubin (0.2 - 1.3 mg/dL) 0.8 AST (14 - 36 U/L) 30 ALT (9 - 52 U/L) 22 Alkaline Phosphatase (<127 U/L) 339 H Troponin I (< 0.11 ng/ml) < 0.01 [id number] Pept (<125 pg/mL) 50273 H Total Protein (6.3 - 8.2 g/dL) 7.2 Albumin (3.5 - 5.0 g/dL) 4.0 Globulin (1.9 - 4.2 gm/dL) 3.2 Albumin/Globulin Ratio (1.1 - 2.2 %) 1.3 Coagulation PT (9.4 - 12.5 SEC) 16.8 H INR (0.90 - 1.19) 1.61 H APTT (25 - 37 SEC) 34 D-Dimer High Sensitivty (0 - 243 ng/ml) < 200 Hematology CBC w Diff NO MAN DIFF REQ WBC (4.8 - 10.8 /CUMM) 13.3 H RBC (4.20 - 5.40 /CUMM) 4.02 L Hgb (12.0 - 16.0 G/DL) 11.0 L Hct (37 - 47 %) 33.6 L MCV (81.0 - 99.0 FL) 83.6 MCH (27.0 - 31.0 PG) 27.4 MCHC (33.0 - 37.0 G/DL) 32.8 L RDW (11.5 - 14.5 %) 15.8 H Plt Count (130 - 400 /CUMM) 239 MPV (7.4 - 10.4 FL) 9.3 Gran % (42.2 - 75.2 %) 79.5 H Lymphocytes % (20.5 - 51.1 %) 11.2 L Monocytes % (1.7 - 9.3 %) 5.4 Eosinophils % (0 - 5 %) 2.8 Basophils % (0.0 - 2.0 %) 1.1 Absolute Granulocytes (1.4 - 6.5 /CUMM) 10.6 H Absolute Lymphocytes (1.2 - 3.4 /CUMM) 1.5 Absolute Monocytes (0.10 - 0.60 /CUMM) 0.7 H Absolute Eosinophils (0.0 - 0.7 /CUMM) 0.4 Absolute Basophils (0.0 - 0.2 /CUMM) 0.1 EKG>>> Rapid afib. CXR: IMPRESSION: Cardiopulmonary with pulmonary venous congestion and interstitial edema, similar to prior. Increased size of the small to moderate right pleural effusion. Trace left effusion. venous doppler: IMPRESSION: Limited study as above. No evidence of deep venous thrombosis involving the lower extremities. A/P; 72 y/o F with pmh sig for A. fib on warfarin, Cardizem and metoprolol, CKD stage 4, moderate to severe pulmonary hypertension, recently admitted to with rapid afib, uti, chf, was discharged about a week ago, admitted with increasing shortness of breath, acute CHF exacerbation, rapid A. fib and bilateral lower extremity edema as well as cellulitis. Patient will be admitted to telemetry. Currently on Cardizem drip. Will be continued on her beta matt and Cardizem drip was titrated to heart rate. Please trend troponins. Cardiology will be consulted. Patient should be diuresed with IV Lasix. Please check strict intake and output as well as daily weights. Patient had a recent echocardiogram therefore no need to repeat echo. Please confirm and continue the rest of her home medications. Patient was started on antibiotics cefazolin which should be renally dosed. Please obtain blood cultures. Please consult nephrology. DVT px: Currently patient's INR subtherapeutic, she will be started on heparin drip to bridge with Coumadin and check INR in the morning. Full code.
--- NOTE | 2017-09-09 18:47 | Cons- Nephrology ---
General Information and HPI Consulting Request Date of Consult: 09/09/17 Requested By: Mariajose Esparza MD Reason for Consult: CKD 5, volume overload Source of Information: patient Exam Limitations: no limitations History of Present Illness: The patient is a pleasant 72-year-old female with a history of chronic kidney disease stage V due to diabetes and hypertension with a baseline creatinine of 3.1 status post AV fistula creation in the right upper extremity which has never been used. This past year she moved to [place] and transferred her nephrology care from Dr. Garcia in [place] to Dr Chang. She recently was hospitalized with A. fib with RVR. She was started on metoprolol, Cardizem and Coumadin during the hospital stay. She felt well before and after the hospital stay, however since being home this past week she's developed progressive weight gain, edema and shortness of breath and in the ER was found to have mild CHF on chest x-ray, and to be in A. fib with RVR. Creatinine is stable at 3.1. She reports compliance with her torsemide and has been limiting her salt and liquid intake. Allergies/Medications Allergies: Coded Allergies: sitagliptin (From [employer]) (Severe, THROAT CLOSURE 02/05/17) Home Med List: Calcitriol 0.25 MCG CAPSULE 1 CAP PO DAILY SUPPLEMENT (Reported) Diltiazem HCl (Diltiazem 24HR Cd) 180 MG CAP.ER.24H 360 MG PO DAILY heart rate . Febuxostat (Uloric) 40 MG TABLET 1 TAB PO DAILY UNKNOWN (Reported) Ferrous Sulfate 325 MG (65 MG IRON) TABLET 1 TAB PO TID Iron storage . Hydralazine HCl 25 MG TABLET 1 TAB PO DAILY BP (Reported) Metoprolol Tartrate 25 MG TABLET 25 MG PO BID Heart rate . Rosuvastatin Calcium (Crestor) 10 MG TABLET 1 TAB PO DAILY HYPERLIPIDEMIA Sevelamer Carbonate (Renvela) 800 MG TABLET 2 TAB PO WM CKD Sodium Bicarbonate 325 MG TABLET 1,300 MG PO BID KIDNEY HEALTH . Torsemide 20 MG TABLET 1 TAB PO DAILY WATER RETENTION (Reported) Please take 2 pills on 09/02 & 09/03 & 09/04/17, then continue one pill daily. Warfarin Sodium (Coumadin) 5 MG TABLET 1 TAB PO DAILY BLOOD THINNER . Current Medications: Current Medications Sig/Cole Start time Last Medication Dose Route Stop Time Status Admin Acetaminophen 650 MG Q6P PRN 09/09 1730 AC PO Atorvastatin Calcium 40 MG 1700 09/10 1700 AC PO Calcitriol 0.25 MCG DAILY 09/10 1000 AC PO Cefazolin Sodium 1,000 MG Q12H 09/09 1700 AC IV Diltiazem HCl 0 .STK-MED ONE 09/09 1529 DC IV Diltiazem HCl 125 MG Q24H 09/09 1515 AC 09/09 Dextrose/Water 100 ML IV 1544 Diltiazem HCl 0 .STK-MED ONE 09/09 1409 DC .ROUTE Diltiazem HCl 10 MG ONCE ONE 09/09 1400 DC 09/09 IV 09/09 1401 1410 Diltiazem HCl 0 .STK-MED ONE 09/09 1239 DC .ROUTE Diltiazem HCl 10 MG ONCE ONE 09/09 1230 DC 09/09 IV 09/09 1231 1240 Febuxostat 40 MG DAILY 09/09 1745 AC PO Ferrous Sulfate 325 MG TID 09/09 2200 AC PO Furosemide 0 .STK-MED ONE 09/09 1747 DC IV Furosemide 60 MG DAILY 09/09 1700 AC IV Heparin Sodium 25,000 UNIT Q24H 09/09 1730 AC 09/09 (Porcine) IV 1745 Sodium Chloride 500 ML Metoprolol Tartrate 25 MG BID 09/09 2200 AC PO Sevelamer Carbonate 1,600 MG WM 09/09 1700 AC 09/09 PO 1747 Sodium Bicarbonate 1,300 MG BID 09/09 2200 AC PO Warfarin Sodium 5 MG COUMADIN 1700 ONE 09/09 1700 DC 09/09 PO 09/09 1701 1746 Review of Systems Review of Systems: Gen: neg fever, chills, nightsweats, wt loss Skin: neg rash, pruritus Eye: neg visual changes, diplopia ENT: neg hearing changes, rhinitus CV: +, LEONG, +edema Pulm: neg cough, sputum, hemoptysis GI: neg nausea, vomiting, diarrhea, abdominal pain, hematemesis, BRBPR : neg dysuria, frequency, urgency, hematuria, foamy urine, nocturia Musculoskeletal: neg myalgias, arthralgias Neuro: neg weakness, numbness Psych: neg depression, mental status changes Heme: neg bruising, easy bleeding, clots Past History Travel History Traveled to [place] past 21 day No Medical History Neurological: NONE EENT: NONE Cardiovascular: AFIB (refuses/ not started on antico), aflutter, hypertension Respiratory: NONE Gastrointestinal: NONE Hepatic: NONE Renal: CKD biopsy-proven diabetic/hypertensive nephropathy Musculoskeletal: gout Psychiatric: NONE Endocrine: diabetes, she reports that her diabetes has been referred for roughly 10 years. She denies any retinopathy. 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 Surgical History Surgical History: non-contributory, 2 YEARS AGO (DR MEEHAN) [place] Psychosocial History ETOH Use: denies use Illicit Drug Use: denies illicit drug use Exam & Diagnostic Data Vital Signs and I&O Vital Signs Date Time Temp Pulse Resp B/P B/P Pulse O2 O2 Flow FiO2 Mean Ox Delivery Rate 09/09 1705 97.4 112 18 159/87 97 09/09 1410 112 160/95 09/09 1354 97.8 112 22 160/95 94 Nasal 2.0L Cannula 09/09 1247 96 Nasal Cannula 09/09 1240 135 159/88 09/09 1212 98.1 135 26 159/88 89 Nasal 2.0L Cannula Intake & Output 09/09 1600 09/09 0400 09/08 1600 09/08 0400 09/07 1600 09/07 0400 Intake Total Output Total Balance Patient 209 lb Weight Weight Reported by Patient Measurement Method Physical Exam: General: NAD, A+O x3. HEENT: NC/AT. No icterus. Moist mucosa Neck: negative for LINDA, JVD CV: Irreg, irreg, tachy Pulm: faint rales at bases Abd: soft, NT/ND, negative renal bruits Lower Ext: 2 + edema Upper Ext: RUE AVF+thrill/bruit Back: negative for CVA tenderness Neuro: neg tremor, asterixis Skin: no rash, jaundice : no wiley catheter Results Pertinent Lab Results: Laboratory Tests 09/09 09/09 09/09 1810 1311 1230 Chemistry Sodium (137 - 145 mmol/L) 146 H Potassium (3.5 - 5.1 mmol/L) 4.8 Chloride (98 - 107 mmol/L) 103 Carbon Dioxide (22 - 30 mmol/L) 26 Anion Gap (5 - 16) 16 BUN (7 - 17 mg/dL) 74 H Creatinine (0.5 - 1.0 mg/dL) 3.1 H Estimated GFR (>60 ml/min) 15 L BUN/Creatinine Ratio (7 - 25 %) 23.9 Glucose (65 - 99 mg/dL) 217 H Calcium (8.4 - 10.2 mg/dL) 9.6 Total Bilirubin (0.2 - 1.3 mg/dL) 0.8 AST (14 - 36 U/L) 30 ALT (9 - 52 U/L) 22 Alkaline Phosphatase (<127 U/L) 339 H Troponin I (< 0.11 ng/ml) Pending < 0.01 [id number] Pept (<125 pg/mL) 25625 H Total Protein (6.3 - 8.2 g/dL) 7.2 Albumin (3.5 - 5.0 g/dL) 4.0 Globulin (1.9 - 4.2 gm/dL) 3.2 Albumin/Globulin Ratio (1.1 - 2.2 %) 1.3 Coagulation PT (9.4 - 12.5 SEC) 16.8 H INR (0.90 - 1.19) 1.61 H APTT (25 - 37 SEC) 34 D-Dimer High Sensitivty (0 - 243 ng/ml) < 200 Hematology CBC w Diff NO MAN DIFF REQ WBC (4.8 - 10.8 /CUMM) 13.3 H RBC (4.20 - 5.40 /CUMM) 4.02 L Hgb (12.0 - 16.0 G/DL) 11.0 L Hct (37 - 47 %) 33.6 L MCV (81.0 - 99.0 FL) 83.6 MCH (27.0 - 31.0 PG) 27.4 MCHC (33.0 - 37.0 G/DL) 32.8 L RDW (11.5 - 14.5 %) 15.8 H Plt Count (130 - 400 /CUMM) 239 MPV (7.4 - 10.4 FL) 9.3 Gran % (42.2 - 75.2 %) 79.5 H Lymphocytes % (20.5 - 51.1 %) 11.2 L Monocytes % (1.7 - 9.3 %) 5.4 Eosinophils % (0 - 5 %) 2.8 Basophils % (0.0 - 2.0 %) 1.1 Absolute Granulocytes (1.4 - 6.5 /CUMM) 10.6 H Absolute Lymphocytes (1.2 - 3.4 /CUMM) 1.5 Absolute Monocytes (0.10 - 0.60 /CUMM) 0.7 H Absolute Eosinophils (0.0 - 0.7 /CUMM) 0.4 Absolute Basophils (0.0 - 0.2 /CUMM) 0.1 Assessment/Plan Assessment/Recommendations Assessment: Chronic kidney disease stage V: Due to DM/HTN. Renal function currently at baseline. NO acute dialytic need at this time. AVF is in the RUE; if needed seems mature for cannulation (created by Dr Pacheco). Volume overload/CHF: Likely precipitated by afib with RVR, with underlying renal disease contributing to fluid retaining tendency.Echo 08/2016 with preserved EF. Would diurese with IV lasix, while rate controlling. Recommendations: With diuresis with IV Lasix to keep net negative; suggest 40 mg IV BID 1L/day fluid restriction rate control per cardiology patient /daugther want to speak with iv technician about a potential range in her afib therapy as they are concerned she does worse with therapy continue calcitriol, Na bicarb, renvela no acute HD need Limb alert RUE Thank you for the consult
[2017-09-09 21:30] VITALS: BP 168/90
[2017-09-09 23:21] VITALS: BP 156/88
[2017-09-10 02:05] LABS: PTT 70 SEC (25-37)
[2017-09-10 07:57] LABS: ABSOLUTE BASOPHIL COUNT 0.1 /CUMM (0.0-0.2); ABSOLUTE EOSINOPHIL COUNT 0.6 /CUMM (0.0-0.7); ABSOLUTE GRANULOCYTE CT 8.4 /CUMM (1.4-6.5); ABSOLUTE LYMPH COUNT 1.9 /CUMM (1.2-3.4); ABSOLUTE MONOCYTE COUNT 0.9 /CUMM (0.10-0.60); BASOPHIL % 0.9 % (0.0-2.0); EOSINOPHIL % 4.8 % (0-5); GRANULOCYTE % 70.6 % (42.2-75.2); HEMATOCRIT 31.1 % (37-47); MEAN CORPUSCULAR HGB 27.5 PG (27.0-31.0); MEAN CORPUSCULAR HGB CONC 32.6 G/DL (33.0-37.0); MEAN CORPUSCULAR VOLUME 84.5 FL (81.0-99.0); MEAN PLATELET VOLUME 11.9 FL (7.4-10.4); PLATELET COUNT 235 /CUMM (130-400); RBC DISTRIBUTION WIDTH 15.9 % (11.5-14.5); RED BLOOD CELL CT 3.68 /CUMM (4.20-5.40); WHITE BLOOD CELL COUNT 11.9 /CUMM (4.8-10.8)
[2017-09-10 08:14] LABS: PT 16.4 SEC (9.4-12.5)
--- NOTE | 2017-09-10 08:21 | PN- Housestaff ---
Clare Juarezsb 09/10/17 0820: Subjective Follow-up For: afin with rvr low INR cellulities? Tele-Events Since Last Visit: letty 90-107 Subjective: I have seen and examined the patient. feeling slightly better. redness onf the left foot is the same but no pain. lab pending. Review of Systems Constitutional: Reports: see HPI. Objective Last 24 Hrs of Vital Signs/I&O Vital Signs Date Time Temp Pulse Resp B/P B/P Pulse O2 O2 Flow FiO2 Mean Ox Delivery Rate 09/10 0000 Nasal 2.0L Cannula 09/09 2321 98.0 96 26 156/88 93 Nasal Cannula 09/09 2130 98.0 120 26 168/90 93 Nasal Cannula 09/09 2038 130 136/70 09/09 2000 Nasal 2.0L Cannula 09/09 1705 97.4 112 18 159/87 97 09/09 1410 112 160/95 09/09 1354 97.8 112 22 160/95 94 Nasal 2.0L Cannula 09/09 1247 96 Nasal Cannula 09/09 1240 135 159/88 09/09 1212 98.1 135 26 159/88 89 Nasal 2.0L Cannula Intake & Output 09/10 1600 09/10 0800 09/10 0000 Intake Total 200 450 Output Total 450 500 Balance -250 -50 Intake, IV 100 Intake, Oral 200 350 Number 0 Bowel Movements Output, Urine 450 500 Patient 103.532 kg Weight Weight Chair scale Measurement Method Physical Exam General Appearance: Alert, Oriented X3, Cooperative, No Acute Distress Other Physical Findings: Cardiovascular irrigular Lungs bilateral basal crackles Abdomen Normal Bowel Sounds, Soft Extremities bilateral severe edema with redness of the dorsal side of the left foot with overall better than yesterday Current Medications: Current Medications Sig/Cole Start time Last Medication Dose Route Stop Time Status Admin Acetaminophen 650 MG Q6P PRN 09/09 1730 AC PO Atorvastatin Calcium 40 MG 1700 09/10 1700 AC PO Calcitriol 0.25 MCG DAILY 09/10 1000 AC 09/10 PO 0946 Cefazolin Sodium 1,000 MG Q12H 09/09 1700 AC 09/10 IV 0455 Diltiazem HCl 125 MG Q16H 09/10 0230 AC 09/10 Dextrose/Water 100 ML IV 0455 Diltiazem HCl 125 MG Q10H 09/10 0200 CAN Dextrose/Water 100 ML IV Diltiazem HCl 0 .STK-MED ONE 09/09 1529 DC IV Diltiazem HCl 125 MG Q24H 09/09 1515 DC 09/09 Dextrose/Water 100 ML IV 09/10 0159 1544 Diltiazem HCl 0 .STK-MED ONE 09/09 1409 DC .ROUTE Diltiazem HCl 10 MG ONCE ONE 09/09 1400 DC 09/09 IV 09/09 1401 1410 Diltiazem HCl 0 .STK-MED ONE 09/09 1239 DC .ROUTE Diltiazem HCl 10 MG ONCE ONE 09/09 1230 DC 09/09 IV 09/09 1231 1240 Febuxostat 40 MG DAILY 09/09 1745 AC 09/10 PO 0946 Ferrous Sulfate 325 MG TID 09/09 2200 AC 09/10 PO 0946 Furosemide 40 MG BID 09/09 2200 AC 09/10 IV 0945 Furosemide 0 .STK-MED ONE 09/09 1747 DC IV Furosemide 60 MG DAILY 09/09 1700 DC IV Heparin Sodium 25,000 UNIT Q24H 09/09 1730 AC 09/09 (Porcine) IV 1745 Sodium Chloride 500 ML Insulin Aspart 0 TIDAC 09/10 1200 AC SC Metoprolol Tartrate 25 MG BID 09/09 2200 AC 09/10 PO 0948 Sevelamer Carbonate 1,600 MG WM 09/09 1700 AC 09/10 PO 0845 Sodium Bicarbonate 1,300 MG BID 09/09 2200 AC 09/10 PO 0946 Warfarin Sodium 7.5 MG COUMADIN 1700 ONE 09/10 1700 UNVr PO 09/10 1701 Warfarin Sodium 5 MG COUMADIN 1700 09/09 1700 DC 09/09 PO 09/09 1701 1746 Assessment/Plan Assessment: 72-year-old lady with past medical history of A. fib on warfarin Cardizem and metoprolol, CKD, moderate to severe pulmonary hypertension discharge 7 days ago from hospital with diagnosis of A. fib and back to the hospital with chief complaint of shortness of breath. Vital signs in ED where notable for elevated heart rate 130s, no fever Abdomen notable WBC 13.3, hemoglobin 11, creatinine 3.1, BUN 74, sodium 146 Alkaline phosphatase is 339, BNP 86539, troponin 0.01, d-dimer less than 200, INR 1.61 Doppler of the legs ruled out DVT CXR : Cardiopulmonary with pulmonary venous congestion and interstitial edema, similar to prior. Increased size of the small to moderate right pleural effusion. Trace left effusion. Assessment and plan A. fib with RVR with low INR -Cardiology consult pending on IV Cardizem 10 mg per hour heart rate less than 110 -Continue metoprolol -on IV heparin and give 7.5 mg of warfarin today and check INR tomorrow -EKG and troponin 2 : no ACS CKD with volume overload -Nephrology consult apprecaited -IV Lasix BID 40 mg -BEP daily pending today -c/w sevelamer calcium bicarbonate -c/w statin History of hypertension, gout, anemia -Hold hydralazine for now -Continue Uloric -Continue iron supplementation Most likely cellulitis of the left foot -bc x2 - IV cefazolin Q12 per pharmacy recommendation -CBC in wbs is decreasing Full code, DVT prophylaxis is mechanical and IV heparin, Tylenol for pain, diabetic diet due to high BS with low K and NA Problem List: 1. Afib Pain Ratin Pain Location: no pain Pain Goal: Pain 4 or less Pain Plan: same Tomorrow's Labs & Rationales: cbc bep inr Isaias BARBOUR,[facility] 09/10/17 1218: Attending MD Review Statement Attending Statement Attending MD Statement: examined this patient, discuss w/resident/PA/PHYSICAL SCIENCES INSTRUCTOR, agreed w/resident/PA/PHYSICAL SCIENCES INSTRUCTOR, reviewed EMR data (avail), discussed with nursing, reviewed images, amended to note Attending Assessment/Plan: Patient seen and examined, feeling overall better today in terms of her breathing. Extremities still looks swollen. Erythema on the left foot is slightly better. Vital Signs Date Time Temp Pulse Resp B/P B/P Pulse O2 O2 Flow FiO2 Mean Ox Delivery Rate 09/10 0951 93 20 130/84 09/10 0948 93 130/84 09/10 0800 Nasal 2.0L Cannula 09/10 0000 Nasal 2.0L Cannula 09/09 2321 98.0 96 26 156/88 93 Nasal Cannula 09/09 2130 98.0 120 26 168/90 93 Nasal Cannula 09/09 2038 130 136/70 09/09 2000 Nasal 2.0L Cannula 09/09 1705 97.4 112 18 159/87 97 09/09 1410 112 160/95 09/09 1354 97.8 112 22 160/95 94 Nasal 2.0L Cannula 09/09 1247 96 Nasal Cannula 09/09 1240 135 159/88 on exam; aox3, nad. cv; s1,s2, irregular, tachy resp; clear b/l abd; soft, nt, bs+ ext; 2+ edema b/l le, skin; erythema on left foot is improving. Laboratory Tests 09/10 09/10 09/10 09/09 1040 0501 0040 1810 Chemistry Sodium (137 - 145 mmol/L) 147 H Potassium (3.5 - 5.1 mmol/L) 4.5 Chloride (98 - 107 mmol/L) 102 Carbon Dioxide (22 - 30 mmol/L) 27 Anion Gap (5 - 16) 17 H BUN (7 - 17 mg/dL) 74 H Creatinine (0.5 - 1.0 mg/dL) 3.2 H Estimated GFR (>60 ml/min) 14 L BUN/Creatinine Ratio (7 - 25 %) 23.1 Troponin I (< 0.11 ng/ml) < 0.01 Coagulation PT (9.4 - 12.5 SEC) 16.4 H INR (0.90 - 1.19) 1.57 H APTT (25 - 37 SEC) 77 H 70 H Hematology CBC w Diff NO MAN DIFF REQ WBC (4.8 - 10.8 /CUMM) 11.9 H RBC (4.20 - 5.40 /CUMM) 3.68 L Hgb (12.0 - 16.0 G/DL) 10.1 L Hct (37 - 47 %) 31.1 L MCV (81.0 - 99.0 FL) 84.5 MCH (27.0 - 31.0 PG) 27.5 MCHC (33.0 - 37.0 G/DL) 32.6 L RDW (11.5 - 14.5 %) 15.9 H Plt Count (130 - 400 /CUMM) 235 MPV (7.4 - 10.4 FL) 11.9 H Gran % (42.2 - 75.2 %) 70.6 Lymphocytes % (20.5 - 51.1 %) 16.1 L Monocytes % (1.7 - 9.3 %) 7.6 Eosinophils % (0 - 5 %) 4.8 Basophils % (0.0 - 2.0 %) 0.9 Absolute Granulocytes (1.4 - 6.5 /CUMM) 8.4 H Absolute Lymphocytes (1.2 - 3.4 /CUMM) 1.9 Absolute Monocytes (0.10 - 0.60 /CUMM) 0.9 H Absolute Eosinophils (0.0 - 0.7 /CUMM) 0.6 Absolute Basophils (0.0 - 0.2 /CUMM) 0.1 09/09 09/09 1311 1230 Chemistry Sodium (137 - 145 mmol/L) 146 H Potassium (3.5 - 5.1 mmol/L) 4.8 Chloride (98 - 107 mmol/L) 103 Carbon Dioxide (22 - 30 mmol/L) 26 Anion Gap (5 - 16) 16 BUN (7 - 17 mg/dL) 74 H Creatinine (0.5 - 1.0 mg/dL) 3.1 H Estimated GFR (>60 ml/min) 15 L BUN/Creatinine Ratio (7 - 25 %) 23.9 Glucose (65 - 99 mg/dL) 217 H Calcium (8.4 - 10.2 mg/dL) 9.6 Total Bilirubin (0.2 - 1.3 mg/dL) 0.8 AST (14 - 36 U/L) 30 ALT (9 - 52 U/L) 22 Alkaline Phosphatase (<127 U/L) 339 H Troponin I (< 0.11 ng/ml) < 0.01 Akf-Y-Avwwymmeocq Pept (<125 pg/mL) 35949 H Total Protein (6.3 - 8.2 g/dL) 7.2 Albumin (3.5 - 5.0 g/dL) 4.0 Globulin (1.9 - 4.2 gm/dL) 3.2 Albumin/Globulin Ratio (1.1 - 2.2 %) 1.3 Coagulation PT (9.4 - 12.5 SEC) 16.8 H INR (0.90 - 1.19) 1.61 H APTT (25 - 37 SEC) 34 D-Dimer High Sensitivty (0 - 243 ng/ml) < 200 Hematology CBC w Diff NO MAN DIFF REQ WBC (4.8 - 10.8 /CUMM) 13.3 H RBC (4.20 - 5.40 /CUMM) 4.02 L Hgb (12.0 - 16.0 G/DL) 11.0 L Hct (37 - 47 %) 33.6 L MCV (81.0 - 99.0 FL) 83.6 MCH (27.0 - 31.0 PG) 27.4 MCHC (33.0 - 37.0 G/DL) 32.8 L RDW (11.5 - 14.5 %) 15.8 H Plt Count (130 - 400 /CUMM) 239 MPV (7.4 - 10.4 FL) 9.3 Gran % (42.2 - 75.2 %) 79.5 H Lymphocytes % (20.5 - 51.1 %) 11.2 L Monocytes % (1.7 - 9.3 %) 5.4 Eosinophils % (0 - 5 %) 2.8 Basophils % (0.0 - 2.0 %) 1.1 Absolute Granulocytes (1.4 - 6.5 /CUMM) 10.6 H Absolute Lymphocytes (1.2 - 3.4 /CUMM) 1.5 Absolute Monocytes (0.10 - 0.60 /CUMM) 0.7 H Absolute Eosinophils (0.0 - 0.7 /CUMM) 0.4 Absolute Basophils (0.0 - 0.2 /CUMM) 0.1 A/P; 72 y/o F with pmh sig for A. fib on warfarin, Cardizem and metoprolol, CKD stage 4, moderate to severe pulmonary hypertension, recently admitted to with rapid afib, uti, chf, was discharged about a week ago, admitted with increasing shortness of breath, acute CHF exacerbation, rapid A. fib and bilateral lower extremity edema as well as possible cellulitis. Patient has been getting diuresed with IV Lasix. Continue Cardizem drip and titrate to rate control. Patient also getting beta matt. INR remains subtherapeutic, continue heparin drip to bridge with Coumadin. Please dose Coumadin according to INR. Cardiology consult is pending. Please measure strict intake and output as well as daily weights. Patient and daughter would like to speak with cardiology about the rate control of her A. fib and if she is a candidate for ablation. Continue cefazolin for cellulitis and follow-up on the blood cultures. Continue the rest of the management patient on heparin drip and Coumadin for DVT prophylaxis
[2017-09-10 09:51] VITALS: BP 130/84
[2017-09-10 11:43] LABS: PTT 77 SEC (25-37)
[2017-09-10 14:19] VITALS: BP 112/80
--- NOTE | 2017-09-10 18:32 | Cons- Cardiology ---
General Information and HPI Consulting Request Date of Consult: 09/10/17 Requested By: Isaias BARBOUR,Mariajose Reason for Consult: Atrial fibrillation, CHF History of Present Illness: The patient is a 72-year-old female with history of hypertension, diabetes mellitus, chronic kidney disease, paroxysmal atrial fibrillation, and diastolic heart failure who is followed in the office by Dr. Aponte. She presented with complaint of shortness of breath. She was found to be in atrial fibrillation with rapid ventricular rate. She was also noted to have evidence of acute diastolic heart failure. She noted erythema and swelling of the left lower extremity. She has been started on IV diltiazem with control of her heart rate. IV Lasix has been started for acute diastolic heart failure. Her INR was subtherapeutic, and heparin has been initiated. No chest pain. No syncope. She notes occasional mild palpitations. No diaphoresis. No nausea or vomiting. Allergies/Medications Allergies: Coded Allergies: sitagliptin (From [employer]) (Severe, THROAT CLOSURE 02/05/17) Home Med List: Calcitriol 0.25 MCG CAPSULE 1 CAP PO DAILY SUPPLEMENT (Reported) Diltiazem HCl (Diltiazem 24HR Cd) 180 MG CAP.ER.24H 360 MG PO DAILY heart rate . Febuxostat (Uloric) 40 MG TABLET 1 TAB PO DAILY UNKNOWN (Reported) Ferrous Sulfate 325 MG (65 MG IRON) TABLET 1 TAB PO TID Iron storage . Hydralazine HCl 25 MG TABLET 1 TAB PO DAILY BP (Reported) Metoprolol Tartrate 25 MG TABLET 25 MG PO BID Heart rate . Rosuvastatin Calcium (Crestor) 10 MG TABLET 1 TAB PO DAILY HYPERLIPIDEMIA Sevelamer Carbonate (Renvela) 800 MG TABLET 2 TAB PO WM CKD Sodium Bicarbonate 325 MG TABLET 1,300 MG PO BID KIDNEY HEALTH . Torsemide 20 MG TABLET 1 TAB PO DAILY WATER RETENTION (Reported) Please take 2 pills on 09/02 & 09/03 & 09/04/17, then continue one pill daily. Warfarin Sodium (Coumadin) 5 MG TABLET 1 TAB PO DAILY BLOOD THINNER . Current Medications: Current Medications Sig/Cole Start time Last Medication Dose Route Stop Time Status Admin Acetaminophen 650 MG Q6P PRN 09/09 1730 AC PO Atorvastatin Calcium 40 MG 1700 09/10 1700 AC 09/10 PO 1728 Calcitriol 0.25 MCG DAILY 01/28 1000 AC 09/10 PO 0946 Cefazolin Sodium 1,000 MG Q12H 09/09 1700 AC 09/10 IV 1728 Diltiazem HCl 125 MG Q16H 09/10 0230 AC 09/10 Dextrose/Water 100 ML IV 1451 Diltiazem HCl 125 MG Q10H 09/10 0200 CAN Dextrose/Water 100 ML IV Diltiazem HCl 125 MG Q24H 09/09 1515 DC 09/09 Dextrose/Water 100 ML IV 09/10 0159 1544 Febuxostat 40 MG DAILY 09/09 1745 AC 09/10 PO 0946 Ferrous Sulfate 325 MG TID 09/09 2200 AC 09/10 PO 1728 Furosemide 40 MG BID 09/09 2200 AC 09/10 IV 0945 Furosemide 60 MG DAILY 09/09 1700 DC IV Heparin Sodium 25,000 UNIT Q24H 09/09 1730 AC 09/10 (Porcine) IV 1452 Sodium Chloride 500 ML Insulin Aspart 0 TIDAC 09/10 1200 AC 09/10 SC 1728 Metoprolol Tartrate 25 MG BID 09/09 2200 AC 09/10 PO 0948 Sevelamer Carbonate 1,600 MG WM 09/09 1700 AC 09/10 PO 1728 Sodium Bicarbonate 1,300 MG BID 09/09 2200 AC 09/10 PO 0946 Warfarin Sodium 7.5 MG COUMADIN 1700 ONE 09/10 1700 DC 09/10 PO 09/10 1701 1728 Review of Systems Review of Systems: No rash. No tremor. No melena. No hemoptysis. All other systems were reviewed, and were noted to be negative. Past History Travel History Traveled to [place] past 21 day No Medical History Blood Transfusion Hx: Yes Neurological: NONE EENT: NONE Cardiovascular: AFIB (refuses/ not started on antico), aflutter, hypertension Respiratory: NONE Gastrointestinal: NONE Hepatic: NONE Renal: CKD biopsy-proven diabetic/hypertensive nephropathy R.ARM AVF Musculoskeletal: gout Psychiatric: NONE Endocrine: diabetes, she reports that her diabetes has been referred for roughly 10 years. She denies any retinopathy. Blood Disorders: anemia Cancer(s): NONE ELECTRONIC WARFARE OFFICER/Reproductive: NONE Surgical History Surgical History: non-contributory, 2 YEARS AGO (DR MEEHAN) [place] Family History Relations & Conditions If Any: FATHER Heart failure MOTHER Valvular heart disease Psychosocial History Where Do You Live? Home Smoking Status: Never Smoked ETOH Use: denies use Illicit Drug Use: denies illicit drug use ECHO Results (as available) Date of last Echo 08/25/17 EF% 60 Report: 1. Normal EF of 60%. 2. Moderate left ventricular hypertrophy. 3. Moderate left atrial enlargement. 4. Mild mitral regurgitation. 5. Moderate tricuspid regurgitation. 6. Mild aortic sclerosis with mild aortic regurgitation. 7. Mild pulmonic regurgitation. 8. Moderate to severe pulmonary hypertension. Exam & Diagnostic Data Vital Signs and I&O Vital Signs Date Time Temp Pulse Resp B/P B/P Pulse O2 O2 Flow FiO2 Mean Ox Delivery Rate 09/10 1419 98.0 81 26 112/80 95 Nasal Cannula 09/10 0951 93 20 130/84 09/10 0948 93 130/84 09/10 0800 Nasal 2.0L Cannula 09/10 0000 Nasal 2.0L Cannula 09/09 2321 98.0 96 26 156/88 93 Nasal Cannula 09/09 2130 98.0 120 26 168/90 93 Nasal Cannula 09/09 2038 130 136/70 09/09 2000 Nasal 2.0L Cannula Intake & Output 09/10 1600 09/10 0800 09/10 0000 09/09 1600 09/09 0800 09/09 0000 Intake Total 777 200 450 Output Total 450 500 Balance 777 -250 -50 Intake, IV 297 100 Intake, Oral 480 200 350 Number 0 Bowel Movements Output, Urine 450 500 Patient 228 lb 209 lb Weight Weight Chair scale Reported by Patient Measurement Method Physical Exam: Gen: The patient is in no acute distress HEENT: Normal nose, ears, and oropharynx. Pupils equal bilaterally. Conjunctiva normal. Neck: Supple with no JVD, no masses, and no thyromegaly Lungs: Clear to auscultation with normal respiratory effort Heart: Irregularly irregular, S1, S2, no murmurs. 2+ peripheral edema, 1+ pulses in the lower extremities bilaterally Abdomen: Soft, nontender, no masses. No hepatomegaly. No splenomegaly Extremities: No clubbing or cyanosis. Normal muscle strength in the upper and lower extremities Skin: Left lower extremity erythema, normal skin turgor Neuro: Cranial nerves intact. Sensation intact Psych: Alert and oriented 3 with appropriate affect Labs/Rayshawn Results: Laboratory Tests 09/10 09/10 09/10 09/09 1040 0501 0040 1810 Chemistry Sodium (137 - 145 mmol/L) 147 H Potassium (3.5 - 5.1 mmol/L) 4.5 Chloride (98 - 107 mmol/L) 102 Carbon Dioxide (22 - 30 mmol/L) 27 Anion Gap (5 - 16) 17 H BUN (7 - 17 mg/dL) 74 H Creatinine (0.5 - 1.0 mg/dL) 3.2 H Estimated GFR (>60 ml/min) 14 L BUN/Creatinine Ratio (7 - 25 %) 23.1 Troponin I (< 0.11 ng/ml) < 0.01 Coagulation PT (9.4 - 12.5 SEC) 16.4 H INR (0.90 - 1.19) 1.57 H APTT (25 - 37 SEC) 77 H 70 H Hematology CBC w Diff NO MAN DIFF REQ WBC (4.8 - 10.8 /CUMM) 11.9 H RBC (4.20 - 5.40 /CUMM) 3.68 L Hgb (12.0 - 16.0 G/DL) 10.1 L Hct (37 - 47 %) 31.1 L MCV (81.0 - 99.0 FL) 84.5 MCH (27.0 - 31.0 PG) 27.5 MCHC (33.0 - 37.0 G/DL) 32.6 L RDW (11.5 - 14.5 %) 15.9 H Plt Count (130 - 400 /CUMM) 235 MPV (7.4 - 10.4 FL) 11.9 H Gran % (42.2 - 75.2 %) 70.6 Lymphocytes % (20.5 - 51.1 %) 16.1 L Monocytes % (1.7 - 9.3 %) 7.6 Eosinophils % (0 - 5 %) 4.8 Basophils % (0.0 - 2.0 %) 0.9 Absolute Granulocytes (1.4 - 6.5 /CUMM) 8.4 H Absolute Lymphocytes (1.2 - 3.4 /CUMM) 1.9 Absolute Monocytes (0.10 - 0.60 /CUMM) 0.9 H Absolute Eosinophils (0.0 - 0.7 /CUMM) 0.6 Absolute Basophils (0.0 - 0.2 /CUMM) 0.1 09/09 09/09 1311 1230 Chemistry Sodium (137 - 145 mmol/L) 146 H Potassium (3.5 - 5.1 mmol/L) 4.8 Chloride (98 - 107 mmol/L) 103 Carbon Dioxide (22 - 30 mmol/L) 26 Anion Gap (5 - 16) 16 BUN (7 - 17 mg/dL) 74 H Creatinine (0.5 - 1.0 mg/dL) 3.1 H Estimated GFR (>60 ml/min) 15 L BUN/Creatinine Ratio (7 - 25 %) 23.9 Glucose (65 - 99 mg/dL) 217 H Calcium (8.4 - 10.2 mg/dL) 9.6 Total Bilirubin (0.2 - 1.3 mg/dL) 0.8 AST (14 - 36 U/L) 30 ALT (9 - 52 U/L) 22 Alkaline Phosphatase (<127 U/L) 339 H Troponin I (< 0.11 ng/ml) < 0.01 [id number] Pept (<125 pg/mL) 02476 H Total Protein (6.3 - 8.2 g/dL) 7.2 Albumin (3.5 - 5.0 g/dL) 4.0 Globulin (1.9 - 4.2 gm/dL) 3.2 Albumin/Globulin Ratio (1.1 - 2.2 %) 1.3 Coagulation PT (9.4 - 12.5 SEC) 16.8 H INR (0.90 - 1.19) 1.61 H APTT (25 - 37 SEC) 34 D-Dimer High Sensitivty (0 - 243 ng/ml) < 200 Hematology CBC w Diff NO MAN DIFF REQ WBC (4.8 - 10.8 /CUMM) 13.3 H RBC (4.20 - 5.40 /CUMM) 4.02 L Hgb (12.0 - 16.0 G/DL) 11.0 L Hct (37 - 47 %) 33.6 L MCV (81.0 - 99.0 FL) 83.6 MCH (27.0 - 31.0 PG) 27.4 MCHC (33.0 - 37.0 G/DL) 32.8 L RDW (11.5 - 14.5 %) 15.8 H Plt Count (130 - 400 /CUMM) 239 MPV (7.4 - 10.4 FL) 9.3 Gran % (42.2 - 75.2 %) 79.5 H Lymphocytes % (20.5 - 51.1 %) 11.2 L Monocytes % (1.7 - 9.3 %) 5.4 Eosinophils % (0 - 5 %) 2.8 Basophils % (0.0 - 2.0 %) 1.1 Absolute Granulocytes (1.4 - 6.5 /CUMM) 10.6 H Absolute Lymphocytes (1.2 - 3.4 /CUMM) 1.5 Absolute Monocytes (0.10 - 0.60 /CUMM) 0.7 H Absolute Eosinophils (0.0 - 0.7 /CUMM) 0.4 Absolute Basophils (0.0 - 0.2 /CUMM) 0.1 Diagnostic Data EKG Results EKG tracing is independently reviewed, and reveals atrial fibrillation with response of 111, left axis deviation, left atrial hypertrophy CXR Results Cardiopulmonary with pulmonary venous congestion and interstitial edema, similar to prior. Increased size of the small to moderate right pleural effusion. Trace left effusion. Other Results Lower exremity doppler: Limited study as above. No evidence of deep venous thrombosis involving the lower extremities. Assessment/Plan Assessment/Plan The patient is a 72-year-old female with history of paroxysmal atrial fibrillation, diabetes Mota, hypertension, diastolic heart failure, and chronic kidney disease. She is admitted with atrial fibrillation with rapid ventricular rate, and with acute on chronic diastolic heart failure. Renal insufficiency is stable. She has been taking torsemide at home with poor diuresis. Recommendations: * Lasix 40 number grams IV every 12 hours * Follow input and output with daily weights * Check basic metabolic profile daily * Dose warfarin for INR 2-3 * Continue IV heparin until INR > 2 * Start oral diltiazem 30 mg by mouth every 6 hours * Wean off IV diltiazem after starting oral * Continue by mouth metoprolol Consult Acknowledgment - Thank you for your consult request.
[2017-09-10 23:02] VITALS: BP 120/60
[2017-09-10 23:05] VITALS: BP 120/70
[2017-09-10 23:10] LABS: PTT 68 SEC (25-37)
[2017-09-11 06:35] VITALS: BP 112/68
--- NOTE | 2017-09-11 08:09 | PN- Housestaff ---
Ganesh Forde MD,Ami 09/11/17 0809: Subjective Follow-up For: Margaret duffy with RVR CHF/CKD volume overload Leg swelling Tele-Events Since Last Visit: afib 89-107 Subjective: Patient visited today, pleasant lady sitting at the bedside comfortably in no acute distress, was alert and oriented. No fever or chills, reported improved shortness of breathing, no chest pain, no other events. She still had leg swelling and tenderness, requested for ultrasound of the leg to rule out any hematoma, held IV heparin temporarily. Weaned off Cardizem 3 and is currently on by mouth cardizem heart rate controlled Review of Systems Constitutional: Reports: see HPI. Objective Last 24 Hrs of Vital Signs/I&O Vital Signs Date Time Temp Pulse Resp B/P B/P Pulse O2 O2 Flow FiO2 Mean Ox Delivery Rate 09/11 1416 98.1 55 20 108/60 96 Nasal 5.0L Cannula 09/11 1203 89 112/68 09/11 0904 89 112/68 09/11 0901 89 112/68 09/11 0635 98.0 89 18 112/68 93 Nasal 2.0L Cannula 09/11 0301 110 136/82 09/10 2305 98.8 107 20 120/70 94 09/10 2302 97.4 102 20 120/60 92 09/10 2222 Nasal 2.0L Cannula 09/10 2041 98 120/70 Intake & Output 09/11 1600 09/11 0800 09/11 0000 Intake Total 580 300 686 Output Total 450 650 Balance 580 -150 36 Intake, IV 180 164 Intake, Oral 400 300 522 Number 2 Bowel Movements Output, Urine 450 650 Patient 233 lb Weight Weight Chair scale Measurement Method Physical Exam General Appearance: Alert, Oriented X3, Cooperative, No Acute Distress Skin: leg swelilng erythema and tenderness Skin Temp/Moisture Exam: Warm/Dry Sepsis Skin Exam (color): Normal for Ethnicity Cardiovascular: Normal S1, Normal S2, afib Lungs: Clear to Auscultation, decreased breathing sound Abdomen: Soft, No Tenderness Neurological: Normal Speech Extremities: as noted above Current Medications: Current Medications Sig/Cole Start time Last Medication Dose Route Stop Time Status Admin Acetaminophen 650 MG Q6P PRN 09/09 1730 AC PO Atorvastatin Calcium 40 MG 1700 09/10 1700 AC 09/10 PO 1728 Calcitriol 0.25 MCG DAILY 09/10 1000 AC 09/11 PO 0905 Cefazolin Sodium 1,000 MG Q12H 09/09 1700 AC 09/11 IV 0452 Diltiazem HCl 30 MG Q6 09/11 0215 AC 09/11 PO 1203 Diltiazem HCl 125 MG Q16H 09/10 0230 DC 09/10 Dextrose/Water 100 ML IV 1451 Febuxostat 40 MG DAILY 09/09 1745 AC 09/11 PO 0904 Ferrous Sulfate 325 MG TID 09/09 2200 AC 09/11 PO 0905 Furosemide 40 MG BID 09/09 2200 AC 09/11 IV 0908 Heparin Sodium 25,000 UNIT Q24H 09/09 1730 DC 09/10 (Porcine) IV 1452 Sodium Chloride 500 ML Insulin Aspart 0 TIDAC 09/10 1200 AC 09/11 SC 1203 Metoprolol Tartrate 25 MG BID 09/09 2200 AC 09/11 PO 0904 Sevelamer Carbonate 1,600 MG WM 09/09 1700 AC 09/11 PO 1201 Sodium Bicarbonate 1,300 MG BID 09/09 2200 AC 09/11 PO 0902 Warfarin Sodium 7.5 MG COUMADIN 1700 ONE 09/11 1700 AC PO 09/11 1701 Warfarin Sodium 7.5 MG COUMADIN 1700 ONE 09/10 1700 DC 09/10 PO 09/10 1701 1728 Last 24 Hrs of Lab/Rayshawn Results Last 24 Hrs of Labs/Mics: Laboratory Tests 09/11/17 1120: APTT 46 H 09/11/17 0622: Anion Gap 13, Estimated GFR 14 L, BUN/Creatinine Ratio 22.4, PT 18.6 H, INR 1.78 H, CBC w Diff NO MAN DIFF REQ, RBC 3.63 L, MCV 84.0, MCH 27.1, MCHC 32.3 L, RDW 15.3 H, MPV 11.3 H, Gran % 63.6, Lymphocytes % 21.9, Monocytes % 9.3, Eosinophils % 4.3, Basophils % 0.9, Absolute Granulocytes 7.4 H, Absolute Lymphocytes 2.5, Absolute Monocytes 1.1 H, Absolute Eosinophils 0.5, Absolute Basophils 0.1 09/10/17 2230: APTT 68 H Assessment/Plan Assessment: 72-year-old lady with past medical history of A. fib on warfarin Cardizem and metoprolol, CKD, moderate to severe pulmonary hypertension discharge 7 days ago from hospital with diagnosis of A. fib and back to the hospital with chief complaint of shortness of breath. Vital signs in ED where notable for elevated heart rate 130s, no fever Abdomen notable WBC 13.3, hemoglobin 11, creatinine 3.1, BUN 74, sodium 146 Alkaline phosphatase is 339, BNP 39951, troponin 0.01, d-dimer less than 200, INR 1.61 Doppler of the legs ruled out DVT CXR : Cardiopulmonary with pulmonary venous congestion and interstitial edema, similar to prior. Increased size of the small to moderate right pleural effusion. Trace left effusion. Patient was admitted to telemetry floor for management of following conditions: fib with RVR with therapeutic INR -Cardiology consult pending - PO cardizem started - IV Cardizem DCed after HR control -Continue metoprolol -give 7.5 mg of warfarin today and check INR tomorrow - Hold IV heparin for now to rule out leg hematoma CKD with volume overload -Nephrology consult apprecaited, recommended to continue current treatment - continue IV Lasix BID 40 mg -c/w sevelamer calcium bicarbonate -c/w statin History of hypertension, gout, anemia -Hold hydralazine for now -Continue Uloric -Continue iron supplementation Left foot swelling and pain: Most likely cellulitis of the left foot - follow bc x2 - IV cefazolin Q12 per pharmacy recommendation -CBC in wbs is decreasing - Hold IV heparin - Superficial ultrasound of the leg Full code, DVT prophylaxis is mechanical and IV heparin, Tylenol for pain, diabetic diet due to high BS with low K and NA and fluid restriction Problem List: 1. Rapid atrial fibrillation 2. Afib 3. Leg swelling Pain Ratin Pain Location: none Pain Goal: Pain 4 or less Pain Plan: Continue current plan Tomorrow's Labs & Rationales: CBc BEP INR Sumit Meza 09/11/17 1453: Attending MD Review Statement Attending Statement Attending MD Statement: examined this patient, discuss w/resident/PA/DOCTOR'S ASSISTANT, agreed w/resident/PA/DOCTOR'S ASSISTANT, reviewed EMR data (avail), discussed with case mgmt Attending Assessment/Plan: Will get soft tissue Ultrasound of the left foot as on exam it looks like she has hematoma . If so will get podiatry to see her for evacuation. will hold off on heparin driop for now and hold off on coumadin dose till we get Ultrasound report. d/w pt the care plan.
[2017-09-11 08:29] LABS: ABSOLUTE BASOPHIL COUNT 0.1 /CUMM (0.0-0.2); ABSOLUTE EOSINOPHIL COUNT 0.5 /CUMM (0.0-0.7); ABSOLUTE GRANULOCYTE CT 7.4 /CUMM (1.4-6.5); ABSOLUTE LYMPH COUNT 2.5 /CUMM (1.2-3.4); ABSOLUTE MONOCYTE COUNT 1.1 /CUMM (0.10-0.60); BASOPHIL % 0.9 % (0.0-2.0); EOSINOPHIL % 4.3 % (0-5); GRANULOCYTE % 63.6 % (42.2-75.2); HEMATOCRIT 30.5 % (37-47); MEAN CORPUSCULAR HGB 27.1 PG (27.0-31.0); MEAN CORPUSCULAR HGB CONC 32.3 G/DL (33.0-37.0); MEAN PLATELET VOLUME 11.3 FL (7.4-10.4); PLATELET COUNT 200 /CUMM (130-400); RBC DISTRIBUTION WIDTH 15.3 % (11.5-14.5); RED BLOOD CELL CT 3.63 /CUMM (4.20-5.40); WHITE BLOOD CELL COUNT 11.6 /CUMM (4.8-10.8)
[2017-09-11 08:58] LABS: PT 18.6 SEC (9.4-12.5)
--- NOTE | 2017-09-11 11:26 | PN- Nephrology ---
Assessment/Plan Assessment: Pt comfortable Cr stable. Continue current Rx Suggestion: . Subjective Subjective: Pt comfortable NAD Objective Vital Signs and I&Os F NAD 112/68 89 98 Lungs clear Cor RRR Abd soft Ext 1-2+edema Results Pertinent Lab Results: Laboratory Tests 09/11 09/10 09/10 0622 2230 1040 Chemistry Sodium (137 - 145 mmol/L) 143 147 H Potassium (3.5 - 5.1 mmol/L) 4.1 4.5 Chloride (98 - 107 mmol/L) 102 102 Carbon Dioxide (22 - 30 mmol/L) 27 27 Anion Gap (5 - 16) 13 17 H BUN (7 - 17 mg/dL) 74 H 74 H Creatinine (0.5 - 1.0 mg/dL) 3.3 H 3.2 H Estimated GFR (>60 ml/min) 14 L 14 L BUN/Creatinine Ratio (7 - 25 %) 22.4 23.1 Coagulation PT (9.4 - 12.5 SEC) 18.6 H INR (0.90 - 1.19) 1.78 H APTT (25 - 37 SEC) 68 H 77 H Hematology CBC w Diff NO MAN DIFF REQ WBC (4.8 - 10.8 /CUMM) 11.6 H RBC (4.20 - 5.40 /CUMM) 3.63 L Hgb (12.0 - 16.0 G/DL) 9.8 L Hct (37 - 47 %) 30.5 L MCV (81.0 - 99.0 FL) 84.0 MCH (27.0 - 31.0 PG) 27.1 MCHC (33.0 - 37.0 G/DL) 32.3 L RDW (11.5 - 14.5 %) 15.3 H Plt Count (130 - 400 /CUMM) 200 MPV (7.4 - 10.4 FL) 11.3 H Gran % (42.2 - 75.2 %) 63.6 Lymphocytes % (20.5 - 51.1 %) 21.9 Monocytes % (1.7 - 9.3 %) 9.3 Eosinophils % (0 - 5 %) 4.3 Basophils % (0.0 - 2.0 %) 0.9 Absolute Granulocytes (1.4 - 6.5 /CUMM) 7.4 H Absolute Lymphocytes (1.2 - 3.4 /CUMM) 2.5 Absolute Monocytes (0.10 - 0.60 /CUMM) 1.1 H Absolute Eosinophils (0.0 - 0.7 /CUMM) 0.5 Absolute Basophils (0.0 - 0.2 /CUMM) 0.1 09/10 09/10 09/09 09/09 0501 0040 1810 1311 Chemistry Troponin I (< 0.11 ng/ml) < 0.01 Coagulation PT (9.4 - 12.5 SEC) 16.4 H 16.8 H INR (0.90 - 1.19) 1.57 H 1.61 H APTT (25 - 37 SEC) 70 H 34 D-Dimer High Sensitivty (0 - 243 ng/ml) < 200 Hematology CBC w Diff NO MAN DIFF REQ WBC (4.8 - 10.8 /CUMM) 11.9 H RBC (4.20 - 5.40 /CUMM) 3.68 L Hgb (12.0 - 16.0 G/DL) 10.1 L Hct (37 - 47 %) 31.1 L MCV (81.0 - 99.0 FL) 84.5 MCH (27.0 - 31.0 PG) 27.5 MCHC (33.0 - 37.0 G/DL) 32.6 L RDW (11.5 - 14.5 %) 15.9 H Plt Count (130 - 400 /CUMM) 235 MPV (7.4 - 10.4 FL) 11.9 H Gran % (42.2 - 75.2 %) 70.6 Lymphocytes % (20.5 - 51.1 %) 16.1 L Monocytes % (1.7 - 9.3 %) 7.6 Eosinophils % (0 - 5 %) 4.8 Basophils % (0.0 - 2.0 %) 0.9 Absolute Granulocytes (1.4 - 6.5 /CUMM) 8.4 H Absolute Lymphocytes (1.2 - 3.4 /CUMM) 1.9 Absolute Monocytes (0.10 - 0.60 /CUMM) 0.9 H Absolute Eosinophils (0.0 - 0.7 /CUMM) 0.6 Absolute Basophils (0.0 - 0.2 /CUMM) 0.1 09/09 1230 Chemistry Sodium (137 - 145 mmol/L) 146 H Potassium (3.5 - 5.1 mmol/L) 4.8 Chloride (98 - 107 mmol/L) 103 Carbon Dioxide (22 - 30 mmol/L) 26 Anion Gap (5 - 16) 16 BUN (7 - 17 mg/dL) 74 H Creatinine (0.5 - 1.0 mg/dL) 3.1 H Estimated GFR (>60 ml/min) 15 L BUN/Creatinine Ratio (7 - 25 %) 23.9 Glucose (65 - 99 mg/dL) 217 H Calcium (8.4 - 10.2 mg/dL) 9.6 Total Bilirubin (0.2 - 1.3 mg/dL) 0.8 AST (14 - 36 U/L) 30 ALT (9 - 52 U/L) 22 Alkaline Phosphatase (<127 U/L) 339 H Troponin I (< 0.11 ng/ml) < 0.01 Tbw-[id number]-Rwtycpecarw Pept (<125 pg/mL) 06711 H Total Protein (6.3 - 8.2 g/dL) 7.2 Albumin (3.5 - 5.0 g/dL) 4.0 Globulin (1.9 - 4.2 gm/dL) 3.2 Albumin/Globulin Ratio (1.1 - 2.2 %) 1.3 Hematology CBC w Diff NO MAN DIFF REQ WBC (4.8 - 10.8 /CUMM) 13.3 H RBC (4.20 - 5.40 /CUMM) 4.02 L Hgb (12.0 - 16.0 G/DL) 11.0 L Hct (37 - 47 %) 33.6 L MCV (81.0 - 99.0 FL) 83.6 MCH (27.0 - 31.0 PG) 27.4 MCHC (33.0 - 37.0 G/DL) 32.8 L RDW (11.5 - 14.5 %) 15.8 H Plt Count (130 - 400 /CUMM) 239 MPV (7.4 - 10.4 FL) 9.3 Gran % (42.2 - 75.2 %) 79.5 H Lymphocytes % (20.5 - 51.1 %) 11.2 L Monocytes % (1.7 - 9.3 %) 5.4 Eosinophils % (0 - 5 %) 2.8 Basophils % (0.0 - 2.0 %) 1.1 Absolute Granulocytes (1.4 - 6.5 /CUMM) 10.6 H Absolute Lymphocytes (1.2 - 3.4 /CUMM) 1.5 Absolute Monocytes (0.10 - 0.60 /CUMM) 0.7 H Absolute Eosinophils (0.0 - 0.7 /CUMM) 0.4 Absolute Basophils (0.0 - 0.2 /CUMM) 0.1
--- NOTE | 2017-09-11 12:10 | PN- Cardiology ---
Subjective Subjective: No complaints. Feels as though her breathing has improved. Remains in atrial fibrillation with ventricular response rate that's averaging in the 80-90 bpm range. Objective Vital Signs and I&Os Vital Signs Date Time Temp Pulse Resp B/P B/P Pulse O2 O2 Flow FiO2 Mean Ox Delivery Rate 09/11 1203 89 112/68 09/11 0904 89 112/68 09/11 0901 89 112/68 09/11 0635 98.0 89 18 112/68 93 Nasal 2.0L Cannula 09/11 0301 110 136/82 09/10 2305 98.8 107 20 120/70 94 09/10 2302 97.4 102 20 120/60 92 09/10 2222 Nasal 2.0L Cannula 09/10 2041 98 120/70 09/10 1419 98.0 81 26 112/80 95 Nasal Cannula Intake & Output 09/11 1600 09/11 0800 09/11 0000 09/10 1600 09/10 0800 09/10 0000 Intake Total 300 686 777 200 450 Output Total 450 650 450 500 Balance -150 36 777 -250 -50 Intake, IV 164 297 100 Intake, Oral 300 522 480 200 350 Number 0 Bowel Movements Output, Urine 450 650 450 500 Patient 233 lb 228 lb Weight Weight Chair scale Chair scale Measurement Method Physical Exam: Well-developed, overweight elderly female in no acute distress. Vital signs: See above. HEENT: Normocephalic, atraumatic, EOMI, slightly dry mucous membranes. Neck: No JVD, right carotid bruit. Lungs: Decreased breath sounds otherwise clear. Heart: S1, S2 (irregularly, irregular) with soft (grade 1-2/6) systolic murmur. Abdomen: Soft, nontender, positive bowel sounds. Extremities: 1-2+ bilateral lower extremity edema. Current Medications: Current Medications Sig/Cole Start time Last Medication Dose Route Stop Time Status Admin Acetaminophen 650 MG Q6P PRN 09/09 1730 AC PO Atorvastatin Calcium 40 MG 1700 09/10 1700 AC 09/10 PO 1728 Calcitriol 0.25 MCG DAILY 09/10 1000 AC 09/11 PO 0905 Cefazolin Sodium 1,000 MG Q12H 09/09 1700 AC 09/11 IV 0452 Diltiazem HCl 30 MG Q6 09/11 0215 AC 09/11 PO 1203 Diltiazem HCl 25 MG .STK-MED ONE 09/10 1448 DC IV 09/10 1449 Diltiazem HCl 125 MG Q16H 09/10 0230 DC 09/10 Dextrose/Water 100 ML IV 1451 Febuxostat 40 MG DAILY 09/09 1745 AC 09/11 PO 0904 Ferrous Sulfate 325 MG TID 09/09 2200 AC 09/11 PO 0905 Furosemide 40 MG BID 09/09 2200 AC 09/11 IV 0908 Heparin Sodium 25,000 UNIT Q24H 09/09 1730 AC 09/10 (Porcine) IV 1452 Sodium Chloride 500 ML Insulin Aspart 0 TIDAC 09/10 1200 AC 09/11 SC 1203 Metoprolol Tartrate 25 MG BID 09/09 2200 AC 09/11 PO 0904 Sevelamer Carbonate 1,600 MG WM 09/09 1700 AC 09/11 PO 1201 Sodium Bicarbonate 1,300 MG BID 09/09 2200 AC 09/11 PO 0902 Warfarin Sodium 7.5 MG COUMADIN 1700 ONE 09/11 1700 AC PO 09/11 1701 Warfarin Sodium 7.5 MG COUMADIN 1700 ONE 09/10 1700 DC 09/10 PO 09/10 1701 1728 Results Last 48 Hrs of Labs/Mics: Laboratory Tests 09/11/17 1120: APTT Pending 09/11/17 0622: Anion Gap 13, Estimated GFR 14 L, BUN/Creatinine Ratio 22.4, PT 18.6 H, INR 1.78 H, CBC w Diff NO MAN DIFF REQ, RBC 3.63 L, MCV 84.0, MCH 27.1, MCHC 32.3 L, RDW 15.3 H, MPV 11.3 H, Gran % 63.6, Lymphocytes % 21.9, Monocytes % 9.3, Eosinophils % 4.3, Basophils % 0.9, Absolute Granulocytes 7.4 H, Absolute Lymphocytes 2.5, Absolute Monocytes 1.1 H, Absolute Eosinophils 0.5, Absolute Basophils 0.1 09/10/17 2230: APTT 68 H 09/10/17 1040: Anion Gap 17 H, Estimated GFR 14 L, BUN/Creatinine Ratio 23.1, APTT 77 H 09/10/17 0501: PT 16.4 H, INR 1.57 H, CBC w Diff NO MAN DIFF REQ, RBC 3.68 L, MCV 84.5, MCH 27.5, MCHC 32.6 L, RDW 15.9 H, MPV 11.9 H, Gran % 70.6, Lymphocytes % 16.1 L , Monocytes % 7.6, Eosinophils % 4.8, Basophils % 0.9, Absolute Granulocytes 8.4 H, Absolute Lymphocytes 1.9, Absolute Monocytes 0.9 H, Absolute Eosinophils 0.6, Absolute Basophils 0.1 09/10/17 0040: APTT 70 H 09/09/17 1810: Troponin I < 0.01 09/09/17 1311: PT 16.8 H, INR 1.61 H, APTT 34, D-Dimer High Sensitivty < 200 09/09/17 1230: Anion Gap 16, Estimated GFR 15 L, BUN/Creatinine Ratio 23.9, Glucose 217 H, Calcium 9.6, Total Bilirubin 0.8, AST 30, ALT 22, Alkaline Phosphatase 339 H, Troponin I < 0.01, Bly-E-Lzmgeqkmclc Pept 67393 H, Total Protein 7.2, Albumin 4.0, Globulin 3.2, Albumin/Globulin Ratio 1.3, CBC w Diff NO MAN DIFF REQ, RBC 4.02 L, MCV 83.6, MCH 27.4, MCHC 32.8 L, RDW 15.8 H, MPV 9.3, Gran % 79.5 H, Lymphocytes % 11.2 L, Monocytes % 5.4, Eosinophils % 2.8, Basophils % 1.1, Absolute Granulocytes 10.6 H, Absolute Lymphocytes 1.5, Absolute Monocytes 0.7 H, Absolute Eosinophils 0.4, Absolute Basophils 0.1 Microbiology 09/09 1311 NASOPHARYN: Influenza Virus A & B Rapid Smear - COMP Recent Imaging Studies: CXR 09/09/2017: Cardiopulmonary with pulmonary venous congestion and interstitial edema, similar to prior. Increased size of the small to moderate right pleural effusion. Trace left effusion. Assessment/Plan Assessment/Plan [id number]-f w/ hx gout, HLD, HTN, DM, CKD s/p RUE AV fistula 06/2016 w/o use necessity, ch anemia on RITO, & PAF s/p electrical CV following a CARI ~2015 w/ recurrence and successful antiarrhythmic Rx w/ chemical CV ~2016 who was recently hospitalized (08/23-09/01/2017) for AF w/ RVR and who gradually improved w/ standard therapy, but who became progressively SOB and edematous w/ wt gain at home despite compliance w/ her diet & medical regimen and who was found to be in AF w/ RVR & HFpEF. Continue strict inputs/outputs and daily weights and maintain on her present medical regimen. Continue on IV heparin until INR therapeutic. Continue telemetry? Yes
[2017-09-11 13:03] LABS: PTT 46 SEC (25-37)
[2017-09-11 14:16] VITALS: BP 108/60
--- NOTE | 2017-09-11 18:05 | ULTRASOUND REPORT ---
EXAMINATION: US SUPERFICIAL IMAGING, EXTREMITY CLINICAL INFORMATION: Left leg swelling and erythema. Patient on heparin. Evaluation for hematoma. COMPARISON: Bilateral lower extremity venous Doppler ultrasound dated 09/09/2017. TECHNIQUE: Focused ultrasound of the dorsum of the left foot was performed in region of patient's redness and swelling. Real-time assessment by the reading radiologist was performed. FINDINGS: There is diffuse thickening of the skin and subcutaneous soft tissues in the dorsum of the foot, underlying the patient's erythema. There is also a ill-defined hypoechoic avascular irregularly shaped collection seen, measuring 2.9 x 1.9 x 2.8 cm with surrounding hyperemia is demonstrated with color Doppler imaging. Findings are nonspecific and may represent a hematoma as clinically suspected or an infected fluid collection/abscess. This is located approximately 2 mm deep to the superficial skin surface and appears complex with low-level internal echoes demonstrated. IMPRESSION: 1. Diffuse cutaneous and soft tissue edema and thickening is seen in the dorsum of the foot underlying the patient's erythema, suspicious for cellulitis. 2. Focal superficial irregular complex fluid collection is seen in the dorsum of the forefoot. This may represent a hematoma or a infected fluid collection/abscess. Clinical correlation is requested.
[2017-09-11 22:18] VITALS: BP 118/80
[2017-09-12 05:36] VITALS: BP 138/80
--- NOTE | 2017-09-12 07:24 | PN- Housestaff ---
Ganesh Forde MD,Ami 09/12/17 0724: Subjective Follow-up For: Margaret duffy with RVR CHF/CKD volume overload Left Foor swelling, collection Tele-Events Since Last Visit: afib, 107-132 Subjective: Patient visited today, was sitting in bed comfortably in no acute distress, was alert and oriented. No fever or chills, no shortness of breathing, no chest pain, no other events. She was tachycardic overnight, administered an extra dose of Cardizem. Communicated with podiatry regarding left foot ultrasound results (suggesting hematoma/collection related to infection), Coumadin and heparin on hold, recommended to plan for drain but obtained a vascular consult before. Contacted Dr. Nair and placed consult. Review of Systems Constitutional: Reports: see HPI. Objective Last 24 Hrs of Vital Signs/I&O Vital Signs Date Time Temp Pulse Resp B/P B/P Pulse O2 O2 Flow FiO2 Mean Ox Delivery Rate 09/12 1308 108 114/70 09/12 0900 97.7 135 20 148/80 94 Nasal 2.0L Cannula 09/12 0848 135 148/80 09/12 0800 Nasal 2.0L Cannula 09/12 0536 146 20 138/80 96 09/12 0529 130 138/78 09/12 0000 Nasal 2.0L Cannula 09/11 2359 133 118/80 09/11 2218 133 118/80 09/11 2218 97.9 133 20 118/80 99 Nasal 2.0L Cannula 09/11 1759 55 108/60 09/11 1416 98.1 55 20 108/60 96 Nasal 5.0L Cannula Intake & Output 09/12 1600 09/12 0800 09/12 0000 Intake Total 0 210 Output Total Balance 0 210 Intake, IV 0 10 Intake, Oral 0 200 Number 0 Bowel Movements Patient 233 lb Weight Physical Exam General Appearance: Alert, Oriented X3, Cooperative, No Acute Distress Skin: bilateral leg skin changes, left more than right, swelling present int he left side Skin Temp/Moisture Exam: Warm/Dry Sepsis Skin Exam (color): Normal for Ethnicity HEENT: Atraumatic, EOMI, Mucous Membr. moist/pink Cardiovascular: Normal S1, Normal S2, tachycardic, irregular Lungs: Clear to Auscultation Abdomen: Soft, No Tenderness Extremities: as noted above, edema improved Current Medications: Current Medications Sig/Cole Start time Last Medication Dose Route Stop Time Status Admin Acetaminophen 650 MG Q6P PRN 09/09 1730 AC PO Atorvastatin Calcium 40 MG 1700 09/10 1700 AC 09/11 PO 1759 Calcitriol 0.25 MCG DAILY 09/10 1000 AC 09/12 PO 0849 Cefazolin Sodium 1,000 MG Q12H 09/09 1700 AC 09/12 IV 0519 Diltiazem HCl 60 MG Q6 09/12 1200 AC 09/12 PO 1308 Diltiazem HCl 60 MG 0815 09/12 0815 DC 09/12 PO 09/12 0816 0848 Diltiazem HCl 30 MG Q6 09/11 0215 DC 09/12 PO 0529 Febuxostat 40 MG DAILY 09/09 1745 AC 09/12 PO 0850 Ferrous Sulfate 325 MG TID 09/09 2200 AC 09/12 PO 0849 Furosemide 40 MG BID 09/09 2200 AC 09/12 IV 0853 Heparin Sodium 25,000 UNIT Q24H 09/09 1730 DC 09/10 (Porcine) IV 1452 Sodium Chloride 500 ML Insulin Aspart 0 TIDAC 09/10 1200 AC 09/12 SC 1206 Metoprolol Tartrate 25 MG BID 09/09 2200 AC 09/12 PO 0849 Sevelamer Carbonate 1,600 MG WM 09/09 1700 AC 09/12 PO 1206 Sodium Bicarbonate 1,300 MG BID 09/09 2200 AC 09/12 PO 0849 Warfarin Sodium 7.5 MG COUMADIN 1700 ONE 09/11 1700 CAN PO 09/11 1701 Last 24 Hrs of Lab/Rayshawn Results Last 24 Hrs of Labs/Mics: Laboratory Tests 09/12/17 0629: Anion Gap 15, Estimated GFR 13 L, BUN/Creatinine Ratio 23.7, PT 22.1 H, INR 2.12 H, CBC w Diff NO MAN DIFF REQ, RBC 3.39 L, MCV 83.4, MCH 27.9, MCHC 33.4, RDW 15.2 H, MPV 9.9, Gran % 67.4, Lymphocytes % 17.7 L, Monocytes % 9.0, Eosinophils % 4.9, Basophils % 1.0, Absolute Granulocytes 7.0 H, Absolute Lymphocytes 1.8, Absolute Monocytes 0.9 H, Absolute Eosinophils 0.5, Absolute Basophils 0.1 Assessment/Plan Assessment: 72-year-old lady with past medical history of A. fib on warfarin Cardizem and metoprolol, CKD, moderate to severe pulmonary hypertension discharge 7 days ago from hospital with diagnosis of A. fib and back to the hospital with chief complaint of shortness of breath. Vital signs in ED where notable for elevated heart rate 130s, no fever Abdomen notable WBC 13.3, hemoglobin 11, creatinine 3.1, BUN 74, sodium 146 Alkaline phosphatase is 339, BNP 72151, troponin 0.01, d-dimer less than 200, INR 1.61 Doppler of the legs ruled out DVT CXR : Cardiopulmonary with pulmonary venous congestion and interstitial edema, similar to prior. Increased size of the small to moderate right pleural effusion. Trace left effusion. Patient was admitted to telemetry floor for management of following conditions: fib with RVR with sub-therapeutic INR -Cardiology consult pending - PO cardizem started - IV Cardizem DCed after HR control -Continue metoprolol - Hold warfarin today due to foot effusion and check INR tomorrow - Hold IV heparin for now to rule out leg hematoma Left foot swelling patient had increased swelling of left foot US performed: 1. Diffuse cutaneous and soft tissue edema and thickening is seen in the dorsum of the foot underlying the patient's erythema, suspicious for cellulitis. 2. Focal superficial irregular complex fluid collection is seen in the dorsum of the forefoot. This may represent a hematoma or a infected fluid collection/abscess. Clinical correlation is requested. Anticoagulation was held temporarily. Podiatry consult recommended drain after vasc surgery evaluation. - follow vasc surgery CKD with volume overload -Nephrology consult apprecaited, recommended to continue current treatment - continue IV Lasix BID 40 mg - c/w sevelamer calcium bicarbonate - c/w statin History of hypertension, gout, anemia -Hold hydralazine for now -Continue Uloric -Continue iron supplementation Left foot swelling and pain: Most likely cellulitis of the left foot - follow bc x2 - IV cefazolin Q12 per pharmacy recommendation -CBC in wbs is decreasing - Hold IV heparin - Superficial ultrasound of the leg Full code, DVT prophylaxis is mechanical and IV heparin, Tylenol for pain, diabetic diet due to high BS with low K and NA and fluid restriction Problem List: 1. Leg swelling 2. Afib Pain Ratin Pain Location: none Pain Goal: Pain 4 or less Pain Plan: Continue current plan Tomorrow's Labs & Rationales: BEP and PT Sumit Meza 09/12/17 1525: Attending MD Review Statement Attending Statement Attending MD Statement: examined this patient, discuss w/resident/PA/RN PLACEMENT, agreed w/resident/PA/RN PLACEMENT, reviewed EMR data (avail), discussed with case mgmt Attending Assessment/Plan: Pt with soft tissue ultrasound showing - "Focal superficial irregular complex fluid collection is seen in the dorsum of the forefoot. This may represent a hematoma or a infected fluid collection/abscess. " Vascular surgery consult recommended by podiatry. Will see what they recommend. pt may end up needing drainage of the collection as seen on ultrasound. Nephrology on board and no change in plan per them. d/w pt the care plan.
[2017-09-12 08:04] LABS: ABSOLUTE BASOPHIL COUNT 0.1 /CUMM (0.0-0.2); ABSOLUTE EOSINOPHIL COUNT 0.5 /CUMM (0.0-0.7); ABSOLUTE LYMPH COUNT 1.8 /CUMM (1.2-3.4); ABSOLUTE MONOCYTE COUNT 0.9 /CUMM (0.10-0.60); EOSINOPHIL % 4.9 % (0-5); GRANULOCYTE % 67.4 % (42.2-75.2); HEMATOCRIT 28.3 % (37-47); MEAN CORPUSCULAR HGB 27.9 PG (27.0-31.0); MEAN CORPUSCULAR HGB CONC 33.4 G/DL (33.0-37.0); MEAN CORPUSCULAR VOLUME 83.4 FL (81.0-99.0); MEAN PLATELET VOLUME 9.9 FL (7.4-10.4); PLATELET COUNT 190 /CUMM (130-400); RBC DISTRIBUTION WIDTH 15.2 % (11.5-14.5); RED BLOOD CELL CT 3.39 /CUMM (4.20-5.40); WHITE BLOOD CELL COUNT 10.4 /CUMM (4.8-10.8)
[2017-09-12 08:17] LABS: PT 22.1 SEC (9.4-12.5)
[2017-09-12 09:00] VITALS: BP 148/80
[2017-09-12 14:02] VITALS: BP 138/70
--- NOTE | 2017-09-12 16:46 | Cons- Vascular Surgery ---
General Information and HPI Consulting Request Date of Consult: 09/12/17 Requested By: Derrick BARBOUR,Sumit Gonzáles History of Present Illness: 9-year-old lady with A. fib on Coumadin, chronic kidney disease stage V not on dialysis at this time and pulmonary hypertension. She was recently discharged from the hospital with home O2. She presented to the hospital with left foot pain. Imaging shows good correction in the dorsum of the left foot possibly an old hematoma or an abscess. I was asked to see the patient regarding adequacy of blood flow to the foot. Allergies/Medications Allergies: Coded Allergies: sitagliptin (From [employer]) (Severe, THROAT CLOSURE 02/05/17) Home Med List: Calcitriol 0.25 MCG CAPSULE 1 CAP PO DAILY SUPPLEMENT (Reported) Diltiazem HCl (Diltiazem 24HR Cd) 180 MG CAP.ER.24H 360 MG PO DAILY heart rate . Febuxostat (Uloric) 40 MG TABLET 1 TAB PO DAILY UNKNOWN (Reported) Ferrous Sulfate 325 MG (65 MG IRON) TABLET 1 TAB PO TID Iron storage . Hydralazine HCl 25 MG TABLET 1 TAB PO DAILY BP (Reported) Metoprolol Tartrate 25 MG TABLET 25 MG PO BID Heart rate . Rosuvastatin Calcium (Crestor) 10 MG TABLET 1 TAB PO DAILY HYPERLIPIDEMIA Sevelamer Carbonate (Renvela) 800 MG TABLET 2 TAB PO WM CKD Sodium Bicarbonate 325 MG TABLET 1,300 MG PO BID KIDNEY HEALTH . Torsemide 20 MG TABLET 1 TAB PO DAILY WATER RETENTION (Reported) Please take 2 pills on 09/02 & 09/03 & 09/04/17, then continue one pill daily. Warfarin Sodium (Coumadin) 5 MG TABLET 1 TAB PO DAILY BLOOD THINNER . Past History Medical History Blood Transfusion Hx: Yes Neurological: NONE EENT: NONE Cardiovascular: AFIB (refuses/ not started on antico), aflutter, hypertension Respiratory: NONE Gastrointestinal: NONE Hepatic: NONE Renal: CKD biopsy-proven diabetic/hypertensive nephropathy R.ARM AVF Musculoskeletal: gout Psychiatric: NONE Endocrine: diabetes, she reports that her diabetes has been referred for roughly 10 years. She denies any retinopathy. Blood Disorders: anemia Cancer(s): NONE AMBULATORY SERVICE REPRESENTATIVE/Reproductive: NONE Surgical History Pertinent Surgical History: non-contributory, 2 YEARS AGO (DR MEEHAN) [place] Family History Relations & Conditions If Any: FATHER Heart failure MOTHER Valvular heart disease Psychosocial History Where Do You Live? Home Smoking Status: Never Smoked ETOH Use: denies use Illicit Drug Use: denies illicit drug use Review of Systems Review of Systems: Patient denies headache, dizziness, cough, palpitation, diarrhea or constipation Exam & Diagnostic Data Vital Signs and I&O Vital Signs Date Time Temp Pulse Resp B/P B/P Pulse O2 O2 Flow FiO2 Mean Ox Delivery Rate 09/12 1402 98.3 95 20 138/70 97 Nasal Cannula 09/12 1308 108 114/70 09/12 0900 97.7 135 20 148/80 94 Nasal 2.0L Cannula 09/12 0848 135 148/80 09/12 0800 Nasal 2.0L Cannula 09/12 0536 146 20 138/80 96 09/12 0529 130 138/78 09/12 0000 Nasal 2.0L Cannula 09/11 2359 133 118/80 09/11 2218 133 118/80 09/11 2218 97.9 133 20 118/80 99 Nasal 2.0L Cannula 09/11 1759 55 108/60 Intake & Output 09/12 1600 09/12 0800 09/12 0000 09/11 1600 09/11 0800 09/11 0000 Intake Total 510 0 210 580 300 686 Output Total 450 650 Balance 510 0 210 580 -150 36 Intake, IV 30 0 10 180 164 Intake, Oral 480 0 200 400 300 522 Number 1 0 2 Bowel Movements Output, Urine 450 650 Patient 233 lb 233 lb Weight Weight Chair scale Measurement Method Physical Exam: Patient is alert and oriented 3. Lungs: Clear to auscultation bilaterally. Heart a vascular: Irregular Abdomen: Soft, nontender nondistended Extremities: Bilateral feet are warm. There appeared to be an area of fluctuance on the dorsum of the left foot. There is purplish discoloration in that area. Assessment/Plan Assessment/Plan 72-year-old lady with stage V kidney disease who is currently not on dialysis presented to the hospital with left foot discomfort and possible abscess. Venous duplex showed no evidence of DVT. She has nonpalpable pedal pulses. This may be secondary to edema. Recommendation would be to obtain lower extremity arterial duplex. Podiatry surgery consultation Thank you for asking me to be involved in the care of this patient. Consult Acknowledgment - Thank you for your consult request. Attending MD Review Statement Attending Statement Attending MD Statement: examined this patient, discuss w/resident/PA/HOSE SUSPENDER CUTTER
--- NOTE | 2017-09-12 18:38 | PN- Cardiology ---
Subjective Subjective: No specific complaints. Remains in atrial fibrillation with a better controlled ventricular response. Objective Vital Signs and I&Os Vital Signs Date Time Temp Pulse Resp B/P B/P Pulse O2 O2 Flow FiO2 Mean Ox Delivery Rate 09/12 1736 97 112/60 09/12 1402 98.3 95 20 138/70 97 Nasal Cannula 09/12 1308 108 114/70 09/12 0900 97.7 135 20 148/80 94 Nasal 2.0L Cannula 09/12 0848 135 148/80 09/12 0800 Nasal 2.0L Cannula 09/12 0536 146 20 138/80 96 09/12 0529 130 138/78 09/12 0000 Nasal 2.0L Cannula 09/11 2359 133 118/80 09/11 2218 133 118/80 09/11 2218 97.9 133 20 118/80 99 Nasal 2.0L Cannula Intake & Output 09/12 1600 09/12 0800 09/12 0000 09/11 1600 09/11 0800 09/11 0000 Intake Total 510 0 210 580 300 686 Output Total 450 650 Balance 510 0 210 580 -150 36 Intake, IV 30 0 10 180 164 Intake, Oral 480 0 200 400 300 522 Number 1 0 2 Bowel Movements Output, Urine 450 650 Patient 233 lb 233 lb Weight Weight Chair scale Measurement Method Physical Exam: Well-developed, overweight elderly female in no acute distress. Vital signs: See above. HEENT: Normocephalic, atraumatic, EOMI, slightly dry mucous membranes. Neck: No JVD, right carotid bruit. Lungs: Decreased breath sounds otherwise clear. Heart: S1, S2 (irregularly, irregular) with soft (grade 1-2/6) systolic murmur. Abdomen: Soft, nontender, positive bowel sounds. Extremities: 1-2+ bilateral lower extremity edema. Current Medications: Current Medications Sig/Cole Start time Last Medication Dose Route Stop Time Status Admin Acetaminophen 650 MG Q6P PRN 09/09 1730 AC PO Atorvastatin Calcium 40 [place] [address]009/10 1700 AC 09/12 PO 1634 Calcitriol 0.25 MCG DAILY 09/10 1000 AC 09/12 PO 0849 Cefazolin Sodium 1,000 MG Q12H 09/09 1700 AC 09/12 IV 1634 Diltiazem HCl 60 MG Q6 09/12 1200 AC 09/12 PO 1736 Diltiazem HCl 60 MG 0815 09/12 0815 DC 09/12 PO 09/12 0816 0848 Diltiazem HCl 30 MG Q6 09/11 0215 DC 09/12 PO 0529 Febuxostat 40 MG DAILY 09/09 1745 AC 09/12 PO 0850 Ferrous Sulfate 325 MG TID 09/09 2200 AC 09/12 PO 1634 Furosemide 40 MG BID 09/09 2200 AC 09/12 IV 1732 Insulin Aspart 0 TIDAC 09/10 1200 AC 09/12 SC 1732 Metoprolol Tartrate 25 MG BID 09/09 220 AC 09/12 PO 0849 Sevelamer Carbonate 1,600 MG WM 09/09 1700 AC 09/12 PO 1732 Sodium Bicarbonate 1,300 MG BID 09/09 2199 AC 09/12 PO 0849 Results Last 48 Hrs of Labs/Mics: Laboratory Tests 09/12/17 0629: Anion Gap 15, Estimated GFR 13 L, BUN/Creatinine Ratio 23.7, PT 22.1 H, INR 2.12 H, CBC w Diff NO MAN DIFF REQ, RBC 3.39 L, MCV 83.4, MCH 27.9, MCHC 33.4, RDW 15.2 H, MPV 9.9, Gran % 67.4, Lymphocytes % 17.7 L, Monocytes % 9.0, Eosinophils % 4.9, Basophils % 1.0, Absolute Granulocytes 7.0 H, Absolute Lymphocytes 1.8, Absolute Monocytes 0.9 H, Absolute Eosinophils 0.5, Absolute Basophils 0.1 09/11/17 1120: APTT 46 H 09/11/17 0622: Anion Gap 13, Estimated GFR 14 L, BUN/Creatinine Ratio 22.4, PT 18.6 H, INR 1.78 H, CBC w Diff NO MAN DIFF REQ, RBC 3.63 L, MCV 84.0, MCH 27.1, MCHC 32.3 L, RDW 15.3 H, MPV 11.3 H, Gran % 63.6, Lymphocytes % 21.9, Monocytes % 9.3, Eosinophils % 4.3, Basophils % 0.9, Absolute Granulocytes 7.4 H, Absolute Lymphocytes 2.5, Absolute Monocytes 1.1 H, Absolute Eosinophils 0.5, Absolute Basophils 0.1 09/10/17 2230: APTT 68 H Recent Imaging Studies: Left leg superficial ultrasound 09/11/2017: 1. Diffuse cutaneous and soft tissue edema and thickening is seen in the dorsum of the foot underlying the patient's erythema, suspicious for cellulitis. 2. Focal superficial irregular complex fluid collection is seen in the dorsum of the forefoot. This may represent a hematoma or a infected fluid collection/ abscess. Clinical correlation is requested. Assessment/Plan Assessment/Plan [id number] w/ hx gout, HLD, HTN, DM, CKD s/p RUE AV fistula 06/2016 w/o use necessity, ch anemia on RITO, & PAF s/p electrical CV following a CARI ~2015 w/ recurrence and successful antiarrhythmic Rx w/ chemical CV ~2016 who was recently hospitalized (08/23-09/01/2017) for AF w/ RVR and who gradually improved w/ standard therapy, but who became progressively SOB and edematous w/ wt gain at home despite compliance w/ her diet & medical regimen and who was found to be in AF w/ RVR & HFpEF. Continue strict inputs/outputs and daily weights and maintain on her present medical regimen. INR therapeutic at 2.12. Continue telemetry? Yes
--- NOTE | 2017-09-12 19:03 | Cons- Podiatry ---
General Information and HPI Consulting Request Date of Consult: 09/12/17 Requested By: Derrick BARBOUR,Sumit Gonzáles History of Present Illness: Leslie is a 72 year old female with extensive past medical history, including atrial fib. 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 The patient was noted on this admission to have a fluctuant and tender dorsal left foot. Allergies/Medications Allergies: Coded Allergies: sitagliptin (From [employer]) (Severe, THROAT CLOSURE 02/05/17) Home Med List: Calcitriol 0.25 MCG CAPSULE 1 CAP PO DAILY SUPPLEMENT (Reported) Diltiazem HCl (Diltiazem 24HR Cd) 180 MG CAP.ER.24H 360 MG PO DAILY heart rate . Febuxostat (Uloric) 40 MG TABLET 1 TAB PO DAILY UNKNOWN (Reported) Ferrous Sulfate 325 MG (65 MG IRON) TABLET 1 TAB PO TID Iron storage . Hydralazine HCl 25 MG TABLET 1 TAB PO DAILY BP (Reported) Metoprolol Tartrate 25 MG TABLET 25 MG PO BID Heart rate . Rosuvastatin Calcium (Crestor) 10 MG TABLET 1 TAB PO DAILY HYPERLIPIDEMIA Sevelamer Carbonate (Renvela) 800 MG TABLET 2 TAB PO WM CKD Sodium Bicarbonate 325 MG TABLET 1,300 MG PO BID KIDNEY HEALTH . Torsemide 20 MG TABLET 1 TAB PO DAILY WATER RETENTION (Reported) Please take 2 pills on 09/02 & 09/03 & 09/04/17, then continue one pill daily. Warfarin Sodium (Coumadin) 5 MG TABLET 1 TAB PO DAILY BLOOD THINNER . Past History Medical History Blood Transfusion Hx: Yes Neurological: NONE EENT: NONE Cardiovascular: AFIB (refuses/ not started on antico), aflutter, hypertension Respiratory: NONE Gastrointestinal: NONE Hepatic: NONE Renal: CKD biopsy-proven diabetic/hypertensive nephropathy R.ARM AVF Musculoskeletal: gout Psychiatric: NONE Endocrine: diabetes, she reports that her diabetes has been referred for roughly 10 years. She denies any retinopathy. Blood Disorders: anemia Cancer(s): NONE SPECTROGRAPHIC ANALYST/Reproductive: NONE Surgical History Pertinent Surgical History: non-contributory, 2 YEARS AGO (DR MEEHAN) [place] Family History Relations & Conditions If Any: FATHER Heart failure MOTHER Valvular heart disease Psychosocial History Where Do You Live? Home Smoking Status: Never Smoked ETOH Use: denies use Illicit Drug Use: denies illicit drug use Review of Systems Review of Systems: Unremarkable except for that noted in history of present illness. Exam & Diagnostic Data Vital Signs and I&O Vital Signs Date Time Temp Pulse Resp B/P B/P Pulse O2 O2 Flow FiO2 Mean Ox Delivery Rate 09/12 1736 97 112/60 09/12 1402 98.3 95 20 138/70 97 Nasal Cannula 09/12 1308 108 114/70 09/12 0900 97.7 135 20 148/80 94 Nasal 2.0L Cannula 09/12 0848 135 148/80 09/12 0800 Nasal 2.0L Cannula 09/12 0536 146 20 138/80 96 09/12 0529 130 138/78 09/12 0000 Nasal 2.0L Cannula 09/11 2359 133 118/80 09/11 2218 133 118/80 09/11 2218 97.9 133 20 118/80 99 Nasal 2.0L Cannula Intake & Output 09/12 1600 09/12 0800 09/12 0000 09/11 1600 09/11 0800 09/11 0000 Intake Total 510 0 210 580 300 686 Output Total 450 650 Balance 510 0 210 580 -150 36 Intake, IV 30 0 10 180 164 Intake, Oral 480 0 200 400 300 522 Number 1 0 2 Bowel Movements Output, Urine 450 650 Patient 233 lb 233 lb Weight Weight Chair scale Measurement Method Physical Exam: Non-pedal pulses bilaterally, possibly obscured by significant and chronic edema. Tenderness and fluctuance noted to dorsal left foot, with violaceous changes noted. Assessment/Plan Assessment/Plan Collection dorsal left foot. Recommend formal I&D of left foot in OR. Awaiting vascular input. Will order arterila ultrasound. Consult Acknowledgment - Thank you for your consult request. Attending MD Review Statement Attending Statement Attending MD Statement: examined this patient
[2017-09-12 22:07] VITALS: BP 130/70
[2017-09-13 07:05] VITALS: BP 140/58
--- NOTE | 2017-09-13 08:03 | PN- Housestaff ---
Ganesh Forde MD,Ami 09/13/17 0802: Subjective Follow-up For: Margaret duffy with RVR CHF/CKD volume overload Left Foor swelling, collection Tele-Events Since Last Visit: Afib 86-110 Subjective: Patient visited today, was sitting at the bedside comfortably in no acute distress, was alert and oriented. Communicated with Dr. Hester, patient was made nothing by mouth and planned to undergo drainage of the collection later today. Reviewed urine output with nursing, subjectively no oliguria but we will be more accurate in recording urine output. No fever or chills, improved shortness of breathing, no chest pain, no palpitation or heart racing, no dizziness no other events. Review of Systems Constitutional: Reports: see HPI. Objective Last 24 Hrs of Vital Signs/I&O Vital Signs Date Time Temp Pulse Resp B/P B/P Pulse O2 O2 Flow FiO2 Mean Ox Delivery Rate 09/13 0830 Room Air 09/13 0824 87 140/58 09/13 0705 98.0 87 20 140/58 92 Nasal Cannula 09/13 0529 90 132/84 09/13 0000 Nasal 2.0L Cannula 09/12 2342 90 134/86 09/12 2207 98.0 92 20 130/70 95 09/12 2055 97 108/60 09/12 1736 97 112/60 09/12 1600 Room Air Intake & Output 09/13 1600 09/13 0800 09/13 0000 Intake Total 0 120 375 Output Total 450 400 Balance 0 -330 -25 Intake, Oral 0 120 375 Number 0 Bowel Movements Output, Urine 450 400 Physical Exam General Appearance: Alert, Oriented X3, Cooperative, No Acute Distress Skin: Right foot swelling, local, relatively render Skin Temp/Moisture Exam: Warm/Dry Sepsis Skin Exam (color): Normal for Ethnicity HEENT: Atraumatic, EOMI, Mucous Membr. moist/pink Cardiovascular: Normal S1, Normal S2, irreg irreg Lungs: Clear to Auscultation Abdomen: Soft, No Tenderness Extremities: Bilateral leg swelling improved, localized collection over left foot Current Medications: Current Medications Sig/Cole Start time Last Medication Dose Route Stop Time Status Admin Acetaminophen 650 MG .STK-MED ONE 09/13 0252 DC PO 09/13 025 Acetaminophen 650 MG Q6P PRN 09/09 1730 AC 09/13 PO 0253 Atorvastatin Calcium 40 MG 1700 09/10 1700 AC 09/12 PO 1634 Calcitriol 0.25 MCG DAILY 09/10 1000 AC 09/13 PO 0824 Cefazolin Sodium 1,000 MG Q12H 09/09 1700 AC 09/13 IV 0523 Diltiazem HCl 60 MG Q6 09/12 1200 AC 09/13 PO 0529 Febuxostat 40 MG DAILY 09/09 1745 AC 09/13 PO 0826 Ferrous Sulfate 325 MG TID 09/09 2200 AC 09/13 PO 0826 Furosemide 40 MG 0800,1700 09/13 0800 AC 09/13 IV 0825 Furosemide 40 MG BID 09/09 2200 DC 09/12 IV 1732 Insulin Aspart 0 TIDAC 09/10 1200 AC 09/12 SC 1732 Metoprolol Tartrate 25 MG BID 09/09 2200 AC 09/13 PO 0824 Sevelamer Carbonate 1,600 MG WM 09/09 1700 AC 09/12 PO 1732 Sodium Bicarbonate 1,300 MG BID 09/09 2200 AC 09/13 PO 0824 Last 24 Hrs of Lab/R[place]hawn Results Last 24 Hrs of Labs/Mics: Laboratory Tests 09/13/17 0645: Anion Gap 14, Estimated GFR 12 L, BUN/Creatinine Ratio 23.6, PT 18.3 H, INR 1.75 H, CBC w Diff NO MAN DIFF REQ, RBC 3.39 L, MCV 83.8, MCH 27.8, MCHC 33.2, RDW 15.8 H, MPV 9.5, Gran % 66.6, Lymphocytes % 17.5 L, Monocytes % 9.5 H, Eosinophils % 5.3 H, Basophils % 1.1, Absolute Granulocytes 6.8 H, Absolute Lymphocytes 1.8, Absolute Monocytes 1.0 H, Absolute Eosinophils 0.5, Absolute Basophils 0.1 Assessment/Plan Assessment: 72-year-old lady with past medical history of A. fib on warfarin Cardizem and metoprolol, CKD, moderate to severe pulmonary hypertension discharge 7 days ago from hospital with diagnosis of A. fib and back to the hospital with chief complaint of shortness of breath. Vital signs in ED where notable for elevated heart rate 130s, no fever Abdomen notable WBC 13.3, hemoglobin 11, creatinine 3.1, BUN 74, sodium 146 Alkaline phosphatase is 339, BNP 63859, troponin 0.01, d-dimer less than 200, INR 1.61 Doppler of the legs ruled out DVT CXR : Cardiopulmonary with pulmonary venous congestion and interstitial edema, similar to prior. Increased size of the small to moderate right pleural effusion. Trace left effusion. Patient was admitted to telemetry floor for management of following conditions: fib with RVR with sub-therapeutic INR -Cardiology consult pending - PO cardizem started - IV Cardizem DCed after HR control -Continue metoprolol - Hold warfarin today due to foot effusion and check INR tomorrow - Hold IV heparin for now to rule out leg hematoma Left foot swelling patient had increased swelling of left foot US performed: 1. Diffuse cutaneous and soft tissue edema and thickening is seen in the dorsum of the foot underlying the patient's erythema, suspicious for cellulitis. 2. Focal superficial irregular complex fluid collection is seen in the dorsum of the forefoot. This may represent a hematoma or a infected fluid collection/abscess. Clinical correlation is requested. Anticoagulation was held temporarily. Podiatry consult recommended drain after vasc surgery evaluation. - follow vasc surgery CKD with volume overload -Nephrology consult apprecaited, recommended to continue current treatment - continue IV Lasix BID 40 mg - c/w sevelamer calcium bicarbonate - c/w statin History of hypertension, gout, anemia -Hold hydralazine for now -Continue Uloric -Continue iron supplementation Left foot swelling and pain: Most likely cellulitis of the left foot - follow bc x2 - IV cefazolin Q12 per pharmacy recommendation -CBC in wbs is decreasing - Hold IV heparin - Superficial ultrasound of the leg Full code, DVT prophylaxis is mechanical and IV heparin, Tylenol for pain, diabetic diet due to high BS with low K and NA and fluid restriction Problem List: 1. Dyspnea 2. Leg swelling 3. Afib 4. Rapid atrial fibrillation Pain Ratin Pain Location: None Pain Goal: Pain 4 or less Pain Plan: Continue current plan Tomorrow's Labs & Rationales: CBC Sumit Crowe 09/13/17 1530: Attending MD Review Statement Attending Statement Attending MD Statement: examined this patient, discuss w/resident/PA/ACCOUNTS RECEIVABLE ASSOCIATE, agreed w/resident/PA/ACCOUNTS RECEIVABLE ASSOCIATE, reviewed EMR data (avail), discussed with nursing, discussed with case mgmt Attending Assessment/Plan: pt s/p I & D of the hematoma left feet. Will f/u on opeartive report. pt nausesous post op, will order iv zofran . d/w pt the care plan. check cbc in am for f/u of hb.
[2017-09-13 08:10] LABS: ABSOLUTE BASOPHIL COUNT 0.1 /CUMM (0.0-0.2); ABSOLUTE EOSINOPHIL COUNT 0.5 /CUMM (0.0-0.7); ABSOLUTE GRANULOCYTE CT 6.8 /CUMM (1.4-6.5); ABSOLUTE LYMPH COUNT 1.8 /CUMM (1.2-3.4); BASOPHIL % 1.1 % (0.0-2.0); EOSINOPHIL % 5.3 % (0-5); GRANULOCYTE % 66.6 % (42.2-75.2); HEMATOCRIT 28.4 % (37-47); MEAN CORPUSCULAR HGB 27.8 PG (27.0-31.0); MEAN CORPUSCULAR HGB CONC 33.2 G/DL (33.0-37.0); MEAN CORPUSCULAR VOLUME 83.8 FL (81.0-99.0); MEAN PLATELET VOLUME 9.5 FL (7.4-10.4); PLATELET COUNT 173 /CUMM (130-400); RBC DISTRIBUTION WIDTH 15.8 % (11.5-14.5); RED BLOOD CELL CT 3.39 /CUMM (4.20-5.40); WHITE BLOOD CELL COUNT 10.2 /CUMM (4.8-10.8)
[2017-09-13 08:17] LABS: PT 18.3 SEC (9.4-12.5)
--- NOTE | 2017-09-13 08:29 | ULTRASOUND REPORT ---
EXAMINATION: US DUPLEX LOWER EXTREMITY ARTERY/GRAFT LIMITED, LEFT CLINICAL INFORMATION: Left leg pain and swelling, edema. Previous ultrasound demonstrating cellulitis of the left foot versus hematoma or abscess. COMPARISON: None TECHNIQUE: Real-time ultrasound and Doppler techniques (integrating B-mode 2-D vascular images, Doppler spectral analysis and color flow Doppler imaging) were utilized to interrogate the lower extremities. Peak systolic velocity is measured in centimeters per second as below. FINDINGS: Left lower extremity: Common femoral artery: 102 cm/sec; monophasic waveform Superficial femoral artery proximal: 95 cm/sec; monophasic waveform Superficial femoral artery mid portion: 86 cm/sec; monophasic waveform Superficial femoral artery distal: 68 cm/sec; monophasic waveform Profunda artery: Not seen Popliteal artery: 84 cm/sec; monophasic waveform Posterior tibial artery: Not seen Anterior tibial artery: Not seen Dorsalis pedis artery: 85 cm/sec; monophasic waveform ADDITIONAL FINDINGS: Irregular heart rate. Evaluation is grossly limited due to the patient's body habitus. Furthermore, the arteries were heavily calcified and difficult to visualize.. IMPRESSION: Monophasic waveforms seen throughout the left lower extremity consistent with diffuse peripheral arterial disease. The arteries are heavily calcified which limited evaluation. The profunda artery, posterior tibial artery and anterior tibial artery were not able to be visualized. Greater sensitivity and specificity can be obtained with pre-and post exercise PVRs with JIGNESH calculations. Also consider dedicated CTA for further anatomical detail.
--- NOTE | 2017-09-13 10:39 | PN- Vascular Surgery ---
Surgical Brief Attending Note Brief Attending Note: Reviewed arterial ultrasound. Monophasiflow may be realted to heart failure She is at high risk of renal failure and need for dialysis with IV contrast. I am not palnning on any angiogram as her kidney funciton is poor. May obtain JIGNESH/PVR with toe pressures to perhaps get a better idea of her arterial perfusion.
--- NOTE | 2017-09-13 17:22 | Operative Report ---
Operative/Inv Procedure Report Surgery Date: 09/13/17 Name of Procedure: 1 open incision and drainage deep to the deep fascia with exposure of the extensor tendon and tendon sheath multiple sites left foot 2 intraoperative administration of ankle block anesthesia 3 excisional debridement Pre-Operative Diagnosis: 1 dorsal space abscess left foot Post-Operative Diagnosis: Same Estimated Blood Loss: less than 50ml Surgeon/Joinery Setter Out: MISA FIELD DPM Anesthesia: moderate sedation, block Operative/Procedure Note Note: After obtaining informed consent the patient was brought to the operating room and placed on the operating table in supine position. The patient isn't securely fastened to the operating table utilizing safety belt. After administration of IV sedation, 10 mL of 0.5% Marcaine plain was infiltrated about the patient's left ankle. Left foot and ankle then scrubbed prepped and draped in usual aseptic manner. Digitorectal dorsal aspect the left foot, where a 4 cm linear incision was made over the distal dorsal foot. Dissection was then carried down deep to the deep fascia with exposure of the extensor tendon and tendon sheath multiple sites, both proximally and distally. All necrotic nonviable infected infected tissue sharply evacuated wound bed. Infected hematoma was evacuated from the foot and specimen was sent for biologic inspection. Nipple was then irrigated with 3 L of normal sterile saline infusion 50,000 units of bacitracin. Following this, the foot was redraped and the surgeon's top was changed clean gloves. Any bleeding vessels identified were cauterized a lace encountered. The wound was then packed with 1 inch iodoform and 3-0 nylon retention sutures were placed. The foot was then dressed with 4 x 4's Kerlix and an Dorian wrap. The patient was noted tolerate both procedure and anesthesia well and the patient was transported from the operating room to recovery by sent stable best assess intact all digits left foot.
[2017-09-13 22:16] VITALS: BP 118/50
[2017-09-14 01:05] LABS: PTT > 120 SEC (25-37)
[2017-09-14 06:38] VITALS: BP 116/68
--- NOTE | 2017-09-14 08:08 | PN- Housestaff ---
Ganesh Forde MD,[facility] 09/14/17 0807: Subjective Follow-up For: Margaret duffy with RVR CHF/CKD volume overload Left Foor swelling, collection Tele-Events Since Last Visit: Afib 80-86 Subjective: Patient visited today, was sitting at the bedside comfortably in no acute distress, was alert and oriented. No fever or chills, improved shortness of breathing, no chest pain, no other events. bilateral leg swelling significantly improved, dressing in place in left side. Planned to go for I&D and closure tomorrow, would be NPO tonight. Discussion initiated with patient regarding continuation of anticoagulation therapy considering bleeding/hematoma risk in future. Review of Systems Constitutional: Reports: see HPI. Objective Last 24 Hrs of Vital Signs/I&O Vital Signs Date Time Temp Pulse Resp B/P B/P Pulse O2 O2 Flow FiO2 Mean Ox Delivery Rate 09/14 1420 97.7 103 20 122/70 100 Nasal Cannula 09/14 1152 112 108/74 09/14 1150 112 108/74 09/14 0904 97.4 83 114/80 09/14 0901 83 114/80 09/14 0800 Nasal 2.0L Cannula 09/14 0638 97.4 108 20 116/68 99 Nasal Cannula 09/14 0521 93 116/68 09/13 2327 90 118/50 09/13 2216 97.4 90 20 118/50 98 Nasal 4.0L Cannula 09/13 2135 Nasal 2.0L Cannula 09/13 2123 87 118/50 09/13 1821 87 140/58 Intake & Output 09/14 1600 09/14 0800 09/14 0000 Intake Total 350 250 Output Total 450 Balance -100 250 Intake, IV 150 Intake, Oral 200 250 Output, Urine 450 Patient 226 lb Weight Weight Chair scale Measurement Method Physical Exam General Appearance: Alert, Oriented X3, Cooperative, No Acute Distress Skin: No Significant Lesion Skin Temp/Moisture Exam: Warm/Dry Sepsis Skin Exam (color): Normal for Ethnicity Cardiovascular: Normal S1, Normal S2, irreg Lungs: bilateral wheezing Abdomen: Soft, No Tenderness Extremities: bilateral edema improved, left side dressing in place. Current Medications: Current Medications Sig/Cole Start time Last Medication Dose Route Stop Time Status Admin Acetaminophen 650 MG Q6P PRN 09/09 1730 AC 09/13 PO 0253 Atorvastatin Calcium 40 MG 1700 09/10 1700 AC 09/13 PO 1600 Calcitriol 0.25 MCG DAILY 09/10 1000 AC 09/14 PO 0904 Cefazolin Sodium 1,000 MG Q12H 09/09 1700 AC 09/14 IV 0521 Dextrose/Sodium 1,000 ML Q13H 09/14 2355 AC Chloride IV Diltiazem HCl 60 MG Q6 09/12 1200 AC 09/14 PO 1152 Febuxostat 40 MG DAILY 09/09 1745 AC 09/14 PO 0904 Ferrous Sulfate 325 MG TID 09/09 2200 AC 09/14 PO 0904 Furosemide 40 MG 0800,1700 09/13 0800 DC 09/14 IV 0804 Heparin Sodium 25,000 UNIT Q24H 09/13 1800 AC 09/13 (Porcine) IV 09/15 0700 1826 Sodium Chloride 500 ML Insulin Aspart 0 TIDAC 09/10 1200 AC 09/14 SC 09/14 2355 1249 Insulin Human Regular 0 Q6 09/14 2359 AC SC Lactobacillus 1 CAP DAILY 09/14 1000 AC 09/14 Acidophilus PO 1152 Metoprolol Tartrate 25 MG BID 09/09 2200 AC 09/14 PO 0904 Ondansetron HCl 4 MG Q6P PRN 09/13 1515 AC 09/13 IV 2057 Sevelamer Carbonate 1,600 MG WM 09/09 1700 AC 09/14 PO 1152 Sodium Bicarbonate 1,300 MG BID 09/09 2200 AC 09/14 PO 0904 Torsemide 20 MG DAILY 09/15 1000 AC PO Last 24 Hrs of Lab/Rayshawn Results Last 24 Hrs of Labs/Mics: Laboratory Tests 09/14/17 0915: APTT > 120 *H 09/14/17 0650: Anion Gap 16, Estimated GFR 12 L, BUN/Creatinine Ratio 23.9, PT 15.7 H, INR 1.50 H, CBC w Diff NO MAN DIFF REQ, RBC 3.45 L, MCV 83.6, MCH 27.8, MCHC 33.3, RDW 15.7 H, MPV 10.6 H, Gran % 88.8 H, Lymphocytes % 8.5 L, Monocytes % 2.4, Eosinophils % 0, Basophils % 0.3, Absolute Granulocytes 9.0 H, Absolute Lymphocytes 0.9 L, Absolute Monocytes 0.2, Absolute Eosinophils 0, Absolute Basophils 0 09/14/17 0000: APTT > 120 *H Assessment/Plan Assessment: 72-year-old lady with past medical history of A. fib on warfarin Cardizem and metoprolol, CKD, moderate to severe pulmonary hypertension discharge 7 days ago from hospital with diagnosis of A. fib and back to the hospital with chief complaint of shortness of breath. Vital signs in ED where notable for elevated heart rate 130s, no fever Abdomen notable WBC 13.3, hemoglobin 11, creatinine 3.1, BUN 74, sodium 146 Alkaline phosphatase is 339, BNP 44346, troponin 0.01, d-dimer less than 200, INR 1.61 Doppler of the legs ruled out DVT CXR : Cardiopulmonary with pulmonary venous congestion and interstitial edema, similar to prior. Increased size of the small to moderate right pleural effusion. Trace left effusion. Patient was admitted to telemetry floor for management of following conditions: fib with RVR with sub-therapeutic INR -Cardiology consult pending - Continue cardizem started -Continue metoprolol - Continue Hold warfarin today due to foot effusion and check INR tomorrow - Hold IV heparin in AM pending proedure Left foot swelling patient had increased swelling of left foot US performed: 1. Diffuse cutaneous and soft tissue edema and thickening is seen in the dorsum of the foot underlying the patient's erythema, suspicious for cellulitis. 2. Focal superficial irregular complex fluid collection is seen in the dorsum of the forefoot. This may represent a hematoma or a infected fluid collection/abscess. Clinical correlation is requested. Anticoagulation was held temporarily. Podiatry consult recommended drain after vasc surgery evaluation. - follow vasc surgery CKD with volume overload -Nephrology consult apprecaited, recommended to continue current treatment - DC IV Lasix BID 40 mg - start Toresomide PO home med - c/w sevelamer calcium bicarbonate - c/w statin History of hypertension, gout, anemia -Hold hydralazine for now -Continue Uloric -Continue iron supplementation Left foot swelling and pain: Most likely cellulitis of the left foot - follow bc x2 - IV cefazolin Q12 per pharmacy recommendation - CBC in wbC is decreasing - plan for closure on 09/15/18 Full code, DVT prophylaxis is mechanical and IV heparin, Tylenol for pain, diabetic diet due to high BS with low K and NA and fluid restriction Problem List: 1. Leg swelling 2. Afib 3. Chronic kidney disease (CKD) Pain Ratin Pain Location: Continue current plan Pain Goal: Pain 4 or less Pain Plan: Continue current plan Tomorrow's Labs & Rationales: CBC GRAEME Sumit Meza 09/14/17 1325: Attending MD Review Statement Attending Statement Attending MD Statement: examined this patient, discuss w/resident/PA/PROFESSOR OF FINE ART, agreed w/resident/PA/PROFESSOR OF [employer]INE [employer], reviewed EMR data (avail), discussed with nursing, discussed with case mgmt Attending Assessment/Plan: Change her iv lasix to po torsemide home dose due to increasing BUN. Leg swelling is better. I encouraged pt to discuss with her family and with Dr Freitas the anticoagulation issue given this hematoma that needed to be evacuated. She will go back to OR tomorrow for revision surgery with podiatry. d/w pt the care plan.
[2017-09-14 08:25] LABS: PT 15.7 SEC (9.4-12.5)
[2017-09-14 08:46] LABS: ABSOLUTE BASOPHIL COUNT 0 /CUMM (0.0-0.2); ABSOLUTE EOSINOPHIL COUNT 0 /CUMM (0.0-0.7); ABSOLUTE LYMPH COUNT 0.9 /CUMM (1.2-3.4); ABSOLUTE MONOCYTE COUNT 0.2 /CUMM (0.10-0.60); BASOPHIL % 0.3 % (0.0-2.0); EOSINOPHIL % 0 % (0-5); HEMATOCRIT 28.8 % (37-47); MEAN CORPUSCULAR HGB 27.8 PG (27.0-31.0); MEAN CORPUSCULAR HGB CONC 33.3 G/DL (33.0-37.0); MEAN CORPUSCULAR VOLUME 83.6 FL (81.0-99.0); MEAN PLATELET VOLUME 10.6 FL (7.4-10.4); PLATELET COUNT 177 /CUMM (130-400); RBC DISTRIBUTION WIDTH 15.7 % (11.5-14.5); RED BLOOD CELL CT 3.45 /CUMM (4.20-5.40); WHITE BLOOD CELL COUNT 10.1 /CUMM (4.8-10.8)
[2017-09-14 09:01] VITALS: BP 114/80
[2017-09-14 09:55] LABS: GRANULOCYTE % 88.8 % (42.2-75.2)
[2017-09-14 11:50] VITALS: BP 108/74
[2017-09-14 11:59] LABS: PTT > 120 SEC (25-37)
[2017-09-14 14:20] VITALS: BP 122/70
--- NOTE | 2017-09-14 15:01 | PN- Nephrology ---
Assessment/Plan Assessment: Pt comfortable Cr in general range it had been (fluctuates in mid 3's). She has advanced CKD IV. Continue lasix meds as you are doing. Inocente Mchugh MD Suggestion: . Subjective Subjective: Pt comfortable. Objective Vital Signs and I&Os 122/70 103 97.7 Lungs clear Cor RRR Abd soft Ext neg edema DATA Results Pertinent Lab Results: Laboratory Tests 09/14 09/14 09/14 0915 0650 0000 Chemistry Sodium (137 - 145 mmol/L) 144 Potassium (3.5 - 5.1 mmol/L) 4.5 Chloride (98 - 107 mmol/L) 100 Carbon Dioxide (22 - 30 mmol/L) 28 Anion Gap (5 - 16) 16 BUN (7 - 17 mg/dL) 86 H Creatinine (0.5 - 1.0 mg/dL) 3.6 H Estimated GFR (>60 ml/min) 12 L BUN/Creatinine Ratio (7 - 25 %) 23.9 Coagulation PT (9.4 - 12.5 SEC) 15.7 H INR (0.90 - 1.19) 1.50 H APTT (25 - 37 SEC) > 120 *H > 120 *H Hematology CBC w Diff NO MAN DIFF REQ WBC (4.8 - 10.8 /CUMM) 10.1 RBC (4.20 - 5.40 /CUMM) 3.45 L Hgb (12.0 - 16.0 G/DL) 9.6 L Hct (37 - 47 %) 28.8 L MCV (81.0 - 99.0 FL) 83.6 MCH (27.0 - 31.0 PG) 27.8 MCHC (33.0 - 37.0 G/DL) 33.3 RDW (11.5 - 14.5 %) 15.7 H Plt Count (130 - 400 /CUMM) 177 MPV (7.4 - 10.4 FL) 10.6 H Gran % (42.2 - 75.2 %) 88.8 H Lymphocytes % (20.5 - 51.1 %) 8.5 L Monocytes % (1.7 - 9.3 %) 2.4 Eosinophils % (0 - 5 %) 0 Basophils % (0.0 - 2.0 %) 0.3 Absolute Granulocytes (1.4 - 6.5 /CUMM) 9.0 H Absolute Lymphocytes (1.2 - 3.4 /CUMM) 0.9 L Absolute Monocytes (0.10 - 0.60 /CUMM) 0.2 Absolute Eosinophils (0.0 - 0.7 /CUMM) 0 Absolute Basophils (0.0 - 0.2 /CUMM) 0 09/13 09/12 6796 [id number] Chemistry Sodium (137 - 145 mmol/L) 143 144 Potassium (3.5 - 5.1 mmol/L) 3.8 4.3 Chloride (98 - 107 mmol/L) 101 101 Carbon Dioxide (22 - 30 mmol/L) 28 28 Anion Gap (5 - 16) 14 15 BUN (7 - 17 mg/dL) 85 H 83 H Creatinine (0.5 - 1.0 mg/dL) 3.6 H 3.5 H Estimated GFR (>60 ml/min) 12 L 13 L BUN/Creatinine Ratio (7 - 25 %) 23.6 23.7 Coagulation PT (9.4 - 12.5 SEC) 18.3 H 22.1 H INR (0.90 - 1.19) 1.75 H 2.12 H Hematology CBC w Diff NO MAN DIFF REQ NO MAN DIFF REQ WBC (4.8 - 10.8 /CUMM) 10.2 10.4 RBC (4.20 - 5.40 /CUMM) 3.39 L 3.39 L Hgb (12.0 - 16.0 G/DL) 9.4 L 9.4 L Hct (37 - 47 %) 28.4 L 28.3 L MCV (81.0 - 99.0 FL) 83.8 83.4 MCH (27.0 - 31.0 PG) 27.8 27.9 MCHC (33.0 - 37.0 G/DL) 33.2 33.4 RDW (11.5 - 14.5 %) 15.8 H 15.2 H Plt Count (130 - 400 /CUMM) 173 190 MPV (7.4 - 10.4 FL) 9.5 9.9 Gran % (42.2 - 75.2 %) 66.6 67.4 Lymphocytes % (20.5 - 51.1 %) 17.5 L 17.7 L Monocytes % (1.7 - 9.3 %) 9.5 H 9.0 Eosinophils % (0 - 5 %) 5.3 H 4.9 Basophils % (0.0 - 2.0 %) 1.1 1.0 Absolute Granulocytes (1.4 - 6.5 /CUMM) 6.8 H 7.0 H Absolute Lymphocytes (1.2 - 3.4 /CUMM) 1.8 1.8 Absolute Monocytes (0.10 - 0.60 /CUMM) 1.0 H 0.9 H Absolute Eosinophils (0.0 - 0.7 /CUMM) 0.5 0.5 Absolute Basophils (0.0 - 0.2 /CUMM) 0.1 0.1
[2017-09-14 18:34] VITALS: BP 102/80
[2017-09-14 20:14] LABS: PTT 32 SEC (25-37)
[2017-09-14 22:10] VITALS: BP 118/78
[2017-09-15 03:08] LABS: PTT 103 SEC (25-37)
[2017-09-15 07:43] LABS: ABSOLUTE BASOPHIL COUNT 0 /CUMM (0.0-0.2); ABSOLUTE EOSINOPHIL COUNT 0.1 /CUMM (0.0-0.7); ABSOLUTE GRANULOCYTE CT 12.8 /CUMM (1.4-6.5); ABSOLUTE LYMPH COUNT 1.2 /CUMM (1.2-3.4); BASOPHIL % 0.2 % (0.0-2.0); EOSINOPHIL % 0.5 % (0-5); GRANULOCYTE % 84.9 % (42.2-75.2); HEMATOCRIT 26.6 % (37-47); MEAN CORPUSCULAR HGB 27.9 PG (27.0-31.0); MEAN CORPUSCULAR HGB CONC 33.2 G/DL (33.0-37.0); MEAN PLATELET VOLUME 9.9 FL (7.4-10.4); PLATELET COUNT 174 /CUMM (130-400); RBC DISTRIBUTION WIDTH 15.3 % (11.5-14.5); RED BLOOD CELL CT 3.17 /CUMM (4.20-5.40)
--- NOTE | 2017-09-15 08:09 | PN- Housestaff ---
See Addendum Subjective Follow-up For: Margaret duffy with RVR CHF/CKD volume overload Left Foor swelling, collection Tele-Events Since Last Visit: 100-121 Afib Subjective: Patient visited today, pleasant old lady, was sitting at the bedside comfortably in no acute distress, was alert and oriented. She was NPP over night for revision/closure of left foot incision. Heparin held in AM. No fever or chills, improved shortness of breathing, no chest pain, no other events. bilateral leg swelling significantly improved, dressing in place in left side. She noted she is always active and was considering to discontinue anticoags due to complication. The situation reviewed with attending cloth measurer. Considering high CHadVasc score (5) we decided to continue anti coags for one more time, in case of any complications we will consider discontinuing them. Review of Systems Constitutional: Reports: see HPI. Objective Last 24 Hrs of Vital Signs/I&O Vital Signs Date Time Temp Pulse Resp B/P B/P Pulse O2 O2 Flow FiO2 Mean Ox Delivery Rate 09/15 1249 97.5 100 18 108/88 100 Nasal 2.0L Cannula 09/15 0955 111 110/58 09/15 0800 Nasal 3.0L Cannula 09/15 0640 98.2 111 20 94 Nasal 3.0L Cannula 09/15 0513 110 110/58 09/14 2351 119 118/78 02 2210 98.1 119 20 118/78 100 Nasal 3.0L Cannula 09/14 2146 Nasal Cannula 09/14 2116 114 118/78 09/14 1836 98 102/80 09/14 1834 98 102/80 09/14 1420 97.7 103 20 122/70 100 Nasal Cannula Intake & Output 09/15 1600 09/15 0800 09/15 0000 Intake Total 550 552.2 Output Total 600 Balance 550 -47.8 Intake, IV 550 112.2 Intake, Oral 0 440 Output, Urine 600 Patient 226 lb Weight Physical Exam General Appearance: Alert, Oriented X3, Cooperative, No Acute Distress Skin: bilateral LE skin changes. Skin Temp/Moisture Exam: Warm/Dry Sepsis Skin Exam (color): Normal for Ethnicity HEENT: Atraumatic, EOMI, Mucous Membr. moist/pink Cardiovascular: Normal S1, Normal S2, irreg irreg, tachicardic Lungs: Clear to Auscultation Abdomen: Soft, No Tenderness Neurological: Normal Speech Extremities: No Edema, bilateral LE edema, improved Current Medications: Current Medications Sig/Cole Start time Last Medication Dose Route Stop Time Status Admin Acetaminophen 650 MG .STK-MED ONE 09/14 1841 DC PO 09/14 1842 Acetaminophen 650 MG Q6P PRN 09/09 1730 AC 09/14 PO 1842 Atorvastatin Calcium 40 MG 1700 09/10 1700 AC 09/14 PO 1836 Calcitriol 0.25 MCG DAILY 09/10 1000 AC 09/14 PO 0904 Cefazolin Sodium 1,000 MG Q12H 09/09 1700 AC 09/15 IV 0513 Dextrose/Sodium 1,000 ML Q13H 09/14 2355 DC 09/15 Chloride IV 1257 Diltiazem HCl 60 MG Q6 09/12 1200 AC 09/15 PO 0513 Febuxostat 40 MG DAILY 09/09 1745 AC 09/14 PO 0904 Ferrous Sulfate 325 MG TID 09/09 2200 AC 09/14 PO 2116 Heparin Sodium 25,000 UNIT Q24H 09/15 1500 AC (Porcine) IV Sodium Chloride 500 ML Heparin Sodium 7,700 UNIT ONCE ONE 09/15 1345 DC (Porcine) IV 09/15 1346 Heparin Sodium 7,700 UNIT ONCE ONE 09/14 2045 DC 09/14 (Porcine) IV 09/14 2045 204 Heparin Sodium 10,000 UNIT .STK-MED ONE 09/14 2020 DC (Porcine) IV 09/14 202 Heparin Sodium 25,000 UNIT Q24H 09/13 1800 DC 09/14 (Porcine) IV 09/15 0700 1837 Sodium Chloride 500 ML Insulin Aspart 0 TIDAC 09/15 1700 AC SC Insulin Aspart 0 TIDAC 09/10 1200 DC 09/14 SC 09/14 2355 1837 Insulin Human Regular 10 UNITS .STK-MED ONE 09/15 0019 DC IV 09/15 0020 Insulin Human Regular 0 Q6 09/14 2359 DC 09/15 SC 1258 Lactobacillus 1 CAP DAILY 09/14 1000 AC 09/14 Acidophilus PO 1152 Metoprolol Tartrate 37.5 MG BID 09/15 2200 AC PO Metoprolol Tartrate 25 MG BID 09/09 2200 DC 09/14 PO 2116 Ondansetron HCl 4 MG Q6P PRN 09/13 1515 AC 09/13 IV 2056 Sevelamer Carbonate 1,600 MG WM 09/09 1700 AC 09/14 PO 183 Sodium Bicarbonate 1,300 MG BID 09/09 2200 AC 09/14 PO 2115 Torsemide 20 MG DAILY 09/15 1000 CAN PO Warfarin Sodium 7.5 MG COUMADIN 1700 ONE 09/15 1700 AC PO 09/15 1701 Last 24 Hrs of Lab/Rayshawn Results Last 24 Hrs of Labs/Mics: Laboratory Tests 09/15/17 0624: Anion Gap 15, Estimated GFR 11 L, BUN/Creatinine Ratio 22.0, CBC w Diff NO MAN DIFF REQ, RBC 3.17 L, MCV 84.0, MCH 27.9, MCHC 33.2, RDW 15.3 H, MPV 9.9, Gran % 84.9 H, Lymphocytes % 7.7 L, Monocytes % 6.7, Eosinophils % 0.5, Basophils % 0.2, Absolute Granulocytes 12.8 H, Absolute Lymphocytes 1.2, Absolute Monocytes 1.0 H, Absolute Eosinophils 0.1, Absolute Basophils 0 09/15/17 0220: APTT 103 *H Assessment/Plan Assessment: 72-year-old lady with past medical history of A. fib on warfarin Cardizem and metoprolol, CKD, moderate to severe pulmonary hypertension discharge 7 days ago from hospital with diagnosis of A. fib and back to the hospital with chief complaint of shortness of breath. Vital signs in ED where notable for elevated heart rate 130s, no fever Abdomen notable WBC 13.3, hemoglobin 11, creatinine 3.1, BUN 74, sodium 146 Alkaline phosphatase is 339, BNP 25311, troponin 0.01, d-dimer less than 200, INR 1.61 Doppler of the legs ruled out DVT CXR : Cardiopulmonary with pulmonary venous congestion and interstitial edema, similar to prior. Increased size of the small to moderate right pleural effusion. Trace left effusion. Patient was admitted to telemetry floor for management of following conditions: Fib with RVR with sub-therapeutic INR Patient on Cardizem 60 q6 and metoprolol 25, planned increase metoprolol to 37.5 BID. INR was sub-therapeutic INR at the time of admission, Coumadin dosing was adjusted during admission. Before I and D was held and heparin IV was administered. Omar-vasc score 5 Had discussion with patient and attending regarding continuation of anticoagulation due to high Omar-vasc score suggesting high chances of complications (Stroke risk 7.2% per year and 10.0% risk of stroke/TIA/systemic embolism). decided to continue anticoagulation and instruct patient to be more carefull of fall/physical trauma. - Contiue tele - Continue cardizem 60 q60 - increase metoprolol to 37.5 BID - Dose Coumadin and check INR daily -Continue heparin after procedure until INR therapeutic Left foot swelling patient had increased swelling of left foot US performed: 1. Diffuse cutaneous and soft tissue edema and thickening is seen in the dorsum of the foot underlying the patient's erythema, suspicious for cellulitis. 2. Focal superficial irregular complex fluid collection is seen in the dorsum of the forefoot. This may represent a hematoma or a infected fluid collection/abscess. Clinical correlation is requested. Arterial doppler was performed: Monophasic waveforms seen throughout the left lower extremity consistent with diffuse peripheral arterial disease. The arteries are heavily calcified which limited evaluation. The profunda artery, posterior tibial artery and anterior tibial artery were not able to be visualized. Greater sensitivity and specificity can be obtained with pre-and post exercise PVRs with JIGNESH calculations. Also consider dedicated CTA for further anatomical detail. patient underwent two step I&D and sunsequent closure (09/15/17). - follow pod/vasc surgery - continue to monitor - follow bc x2 - IV cefazolin Q12 per pharmacy recommendation - follow WBC in CBC CKD with volume overload Patient was CKD baseline with Cr between 3-4. Echo was done during last admission: 1. Normal EF of 60%. 2. Moderate left ventricular hypertrophy. 3. Moderate left atrial enlargement. 4. Mild mitral regurgitation. 5. Moderate tricuspid regurgitation. 6. Mild aortic sclerosis with mild aortic regurgitation. 7. Mild pulmonic regurgitation. 8. Moderate to severe pulmonary hypertension. Patient was initially treated with IV lasix which was changed to home dose of Toresomide on 09/14/17. With increased Cr to above 4 we held Trosemide. - Hold home dose of Toresomide PO home med - c/w sevelamer calcium bicarbonate - c/w statin History of hypertension, gout, anemia -Hold hydralazine for now -Continue Uloric -Continue iron supplementation Full code DVT prophylaxis : mechanical and IV heparin, warfarin Diet: diabetic diet / low K and NA and fluid restriction Problem List: 1. Rapid atrial fibrillation 2. Chronic kidney disease (CKD) 3. Leg swelling Pain Ratin Pain Location: none Pain Goal: Pain 4 or less Pain Plan: continue current plan Tomorrow's Labs & Rationales: RED BEDOLLA PT
--- NOTE | 2017-09-15 11:39 | PN- Cardiology ---
Subjective Subjective: No complaints, but a little anxious about the planned surgery. Ventricular response rates to her atrial fibrillation ranging from 90-110 bpm. Objective Vital Signs and I&Os Vital Signs Date Time Temp Pulse Resp B/P B/P Pulse O2 O2 Flow FiO2 Mean Ox Delivery Rate 09/15 0955 111 110/58 09/15 0800 Nasal 3.0L Cannula 09/15 0640 98.2 111 20 94 Nasal 3.0L Cannula 09/15 0513 110 110/58 09/14 2351 119 118/78 09/14 2210 98.1 119 20 118/78 100 Nasal 3.0L Cannula 09/14 2146 Nasal Cannula 09/14 2116 114 118/78 09/14 1836 98 102/80 09/14 1834 98 102/80 09/14 1420 97.7 103 20 122/70 100 Nasal Cannula 09/14 1152 112 108/74 09/14 1150 112 108/74 Intake & Output 09/15 1600 09/15 0800 09/15 0000 09/14 1600 09/14 0800 09/14 0000 Intake Total 550 552.2 549.4 350 250 Output Total 600 600 450 Balance 550 -47.8 -50.6 -100 250 Intake, IV 550 112.2 129.4 150 Intake, Oral 0 440 420 200 250 Output, Urine 600 600 450 Patient 226 lb 226 lb Weight Weight Chair scale Measurement Method Physical Exam: Well-developed, overweight elderly female in no acute distress. Vital signs: See above. HEENT: Normocephalic, atraumatic, EOMI, slightly dry mucous membranes. Neck: No JVD, right carotid bruit. Lungs: Decreased breath sounds otherwise clear. Heart: S1, S2 (irregularly, irregular) with soft (grade 1-2/6) systolic murmur. Abdomen: Soft, nontender, positive bowel sounds. Extremities: 1-2+ bilateral lower extremity edema. Current Medications: Current Medications Sig/Cole Start time Last Medication Dose Route Stop Time Status Admin Acetaminophen 650 MG .STK-MED ONE 09/14 184 DC PO 09/14 184 Acetaminophen 650 MG Q6P PRN 09/09 1730 AC 09/14 PO 184 Atorvastatin Calcium 40 MG 1700 09/10 1700 AC 09/14 PO 183 Calcitriol 0.25 MCG DAILY 09/10 1000 AC 09/14 PO 0904 Cefazolin Sodium 1,000 MG Q12H 09/09 1700 AC 09/15 IV 0513 Dextrose/Sodium 1,000 ML Q13H 09/14 2355 AC 09/14 Chloride IV 2351 Diltiazem HCl 60 MG Q6 09/12 1200 AC 09/15 PO 0513 Febuxostat 40 MG DAILY 09/09 1745 AC 09/14 PO 0904 Ferrous Sulfate 325 MG TID 09/09 2200 AC 09/14 PO 2116 Heparin Sodium 7,700 UNIT ONCE ONE 09/14 2044 DC 09/14 (Porcine) IV 09/14 Heparin Sodium 10,000 UNIT .STK-MED ONE 09/14 2020 DC (Porcine) IV 09/14 2021 Heparin Sodium 25,000 UNIT Q24H 09/13 1800 DC 09/14 (Porcine) IV 09/15 0700 1837 Sodium Chloride 500 ML Insulin Aspart 0 TIDAC 09/10 1200 DC 09/14 SC 09/14 2355 1837 Insulin Human Regular 10 UNITS .STK-MED ONE 09/15 0019 DC IV 09/15 0020 Insulin Human Regular 0 Q6 09/14 2359 09/15 DE 0631 Lactobacillus 1 CAP DAILY 09/14 1000 AC 09/14 Acidophilus PO 1152 Metoprolol Tartrate 25 MG BID 09/09 2200 AC 09/14 PO 211 Ondansetron HCl 4 MG Q6P PRN 09/13 1515 AC 09/13 IV 2057 Sevelamer Carbonate 1,600 MG WM 09/09 1700 AC 09/14 PO 1836 Sodium Bicarbonate 1,300 MG BID 09/09 2200 AC 09/14 PO 211 Torsemide 20 MG DAILY 09/15 1000 CAN PO Results Last 48 Hrs of Labs/Mics: Laboratory Tests 09/15/17623: Anion Gap 15, Estimated GFR 11 L, BUN/Creatinine Ratio 22.0, CBC w Diff NO MAN DIFF REQ, RBC 3.17 L, MCV 84.0, MCH 27.9, MCHC 33.2, RDW 15.3 H, MPV 9.9, Gran % 84.9 H, Lymphocytes % 7.7 L, Monocytes % 6.7, Eosinophils % 0.5, Basophils % 0.2, Absolute Granulocytes 12.8 H, Absolute Lymphocytes 1.2, Absolute Monocytes 1.0 H, Absolute Eosinophils 0.1, Absolute Basophils 0 09/15/17 0220: APTT 103 *H 09/14/17 0915: APTT > 120 *H 09/14/17 0711: APTT 32 09/14/17 0650: Anion Gap 16, Estimated GFR 12 L, BUN/Creatinine Ratio 23.9, PT 15.7 H, INR 1.50 H, CBC w Diff NO MAN DIFF REQ, RBC 3.45 L, MCV 83.6, MCH 27.8, MCHC 33.3, RDW 15.7 H, MPV 10.6 H, Gran % 88.8 H, Lymphocytes % 8.5 L, Monocytes % 2.4, Eosinophils % 0, Basophils % 0.3, Absolute Granulocytes 9.0 H, Absolute Lymphocytes 0.9 L, Absolute Monocytes 0.2, Absolute Eosinophils 0, Absolute Basophils 0 09/14/17 0000: APTT > 120 *H Assessment/Plan Assessment/Plan [id number]-f w/ hx gout, HLD, HTN, DM, CKD s/p RUE AV fistula 06/2016 w/o use necessity, ch anemia on RITO, & PAF s/p electrical CV following a CARI ~2015 w/ recurrence and successful antiarrhythmic Rx w/ chemical CV ~2016 who was recently hospitalized (08/23-09/01/2017) for AF w/ RVR and who gradually improved w/ standard therapy, but who became progressively SOB and edematous w/ wt gain at home despite compliance w/ her diet & medical regimen and who was found to be in AF w/ RVR & HFpEF. Continue strict inputs/outputs and daily weights and maintain on IV heparin for short term perioperatively. Note H/H= 8.8/26.6 w/ supratherapeutic PTT of 103 s. Increase metoprolol from 25 mg twice daily to 37.5 mg twice daily to achieve better control of the ventricular response to her AF. Continue telemetry? Yes
[2017-09-15 12:49] VITALS: BP 108/88
[2017-09-15 15:08] VITALS: BP 118/76
[2017-09-15 18:11] VITALS: BP 114/82
[2017-09-15 22:32] LABS: PTT 102 SEC (25-37)
[2017-09-15 23:45] VITALS: BP 112/60
[2017-09-16 07:26] VITALS: BP 130/78
--- NOTE | 2017-09-16 08:09 | PN- Housestaff ---
Keke BARBOUR,Anne-Marie 09/16/17 0809: Subjective Follow-up For: Left leg cellulitis, atrial fibrillation with RVR Complaints: no complaints Tele-Events Since Last Visit: Atrial fibrillation heart rate 90 Subjective: Patient was seen and examined at bedside. She was lying in her bed with head end elevated. No overnight events. No complaints. Both leg swollen. Left leg status post I& D. she denies chest pain, shortness of breath, palpitations, fever, headache. Review of Systems Constitutional: Reports: no symptoms. Cardiovascular: Reports: no symptoms. Respiratory: Reports: no symptoms. Gastrointestinal: Reports: no symptoms. Genitourinary: Reports: no symptoms. Musculoskeletal: Reports: no symptoms. Objective Last 24 Hrs of Vital Signs/I&O Vital Signs Date Time Temp Pulse Resp B/P B/P Pulse O2 O2 Flow FiO2 Mean Ox Delivery Rate 09/16 0827 Nasal 3.0L Cannula 09/16 0811 109 130/78 09/16 0810 109 130/78 09/16 0726 97.6 109 20 130/78 98 Nasal Cannula 09/16 0610 90 130/78 09/16 0025 94 112/86 09/15 2345 98.3 90 22 112/60 98 Nasal 3.0L Cannula 09/15 2208 Nasal 3.0L Cannula 09/15 2205 78 118/64 09/15 1814 95 114/82 09/15 1811 95 114/82 09/15 1508 98.0 115 20 118/76 100 Nasal 3.0L Cannula 09/15 1249 97.5 100 18 108/88 100 Nasal 2.0L Cannula Intake & Output 09/16 1600 09/16 0800 09/16 0000 Intake Total 525 416 Output Total Balance 525 416 Intake, IV 125 176 Intake, Oral 400 240 Physical Exam General Appearance: Alert, Cooperative, No Acute Distress HEENT: PERRLA Cardiovascular: Regular Rate, Normal S1, Normal S2, No Murmurs Lungs: Clear to Auscultation Abdomen: Soft, No Tenderness Extremities: LEFT LEG STATUS POST ind. pATIENT ABLE TO MOVE HER BOTH LIMBS. nO TENDERNESS. Current Medications: Current Medications Sig/Cole Start time Last Medication Dose Route Stop Time Status Admin Acetaminophen 650 MG .STK-MED ONE 09/16 0116 DC PO 09/16 0117 Acetaminophen 650 MG .STK-MED ONE 09/15 1612 DC PO 09/15 1613 Acetaminophen 650 MG Q6P PRN 09/09 1730 AC 09/16 PO 0122 Atorvastatin Calcium 40 MG 1700 09/10 1700 AC 09/15 PO 1551 Calcitriol 0.25 MCG DAILY 09/10 1000 AC 09/16 PO 0806 Cefazolin Sodium 1,000 MG Q12H 09/09 1700 AC 09/16 IV 0610 Dextrose/Sodium 1,000 ML Q13H 09/14 2355 DC 09/15 Chloride IV 1257 Diltiazem HCl 60 MG Q6 09/12 1200 AC 09/16 PO 0810 Febuxostat 40 MG DAILY 09/09 1745 AC 09/16 PO 0808 Ferrous Sulfate 325 MG TID 09/09 2200 AC 09/16 PO 0808 Heparin Sodium 25,000 UNIT Q24H 09/15 1500 AC 09/15 (Porcine) IV 1443 Sodium Chloride 500 ML Heparin Sodium 10,000 UNIT .STK-MED ONE 09/15 1416 DC (Porcine) IV 09/15 1417 Heparin Sodium 7,700 UNIT ONCE ONE 09/15 1345 DC 09/15 (Porcine) IV 09/15 1346 1443 Insulin Aspart 0 TIDAC 09/15 1700 AC 09/16 SC 0803 Insulin Human Regular 6 UNITS .STK-MED ONE 09/15 1226 DC IV 09/15 1227 Insulin Human Regular 0 Q6 09/14 2359 DC 09/15 SC 1258 Lactobacillus 1 CAP DAILY 09/14 1000 AC 09/16 Acidophilus PO 0810 Metoprolol Tartrate 37.5 MG BID 09/15 2200 AC 09/16 PO 0811 Metoprolol Tartrate 25 MG BID 09/09 2200 DC 09/14 PO 2116 Ondansetron HCl 4 MG Q6P PRN 09/13 1515 AC 09/13 IV 2057 Sevelamer Carbonate 1,600 MG WM 09/09 1700 AC 09/16 PO 0805 Sodium Bicarbonate 1,300 MG BID 09/09 2200 AC 09/16 PO 0807 Warfarin Sodium 7.5 MG COUMADIN 1700 ONE 09/15 1700 DC PO 09/15 1701 Warfarin Sodium 5 MG COUMADIN 1700 ONE 09/15 1700 DC 09/15 PO 09/15 1701 1814 Last 24 Hrs of Lab/Rayshawn Results Last 24 Hrs of Labs/Mics: Laboratory Tests 09/16/17 0952: APTT Pending 09/16/17 0630: Anion Gap 15, Estimated GFR 11 L, BUN/Creatinine Ratio 23.5, PT 14.0 H, INR 1.34 H, CBC w Diff NO MAN DIFF REQ, RBC 3.26 L, MCV 84.2, MCH 27.8, MCHC 33.0, RDW 16.1 H, MPV 10.6 H, Gran % 68.0, Lymphocytes % 19.4 L, Monocytes % 8.7, Eosinophils % 3.3, Basophils % 0.6, Absolute Granulocytes 8.4 H, Absolute Lymphocytes 2.4, Absolute Monocytes 1.1 H, Absolute Eosinophils 0.4, Absolute Basophils 0.1 09/15/172044: APTT 102 *H Assessment/Plan Assessment: 72-year-old lady with past medical history of A. fib on warfarin Cardizem and metoprolol, CKD, moderate to severe pulmonary hypertension discharge 7 days ago from hospital with diagnosis of A. fib and back to the hospital with chief complaint of shortness of breath. Doppler of the legs ruled out DVT CXR : Cardiopulmonary with pulmonary venous congestion and interstitial edema, similar to prior. Increased size of the small to moderate right pleural effusion. Trace left effusion. Patient was admitted to telemetry floor for management of following conditions: aFib with RVR with sub-therapeutic INR Patient on Cardizem 60 q6 and metoprolol 25, planned increase metoprolol to 37.5 BID. INR was sub-therapeutic INR at the time of admission, Coumadin dosing was adjusted during admission. Omar-vasc score 5 Had discussion with patient and attending regarding continuation of anticoagulation due to high Omar-vasc score suggesting high chances of complications (Stroke risk 7.2% per year and 10.0% risk of stroke/TIA/systemic embolism). decided to continue anticoagulation and instruct patient to be more carefull of fall/physical trauma. - Contiue tele - Continue cardizem 60 q60 - increase metoprolol to 37.5 BID - Dose Coumadin and check INR daily. INR is still subtherapeutic we will dose Coumadin. Left foot swelling patient had increased swelling of left foot patient underwent two step I&D and sunsequent closure (09/15/17). - follow pod/vasc surgery appreciated - follow bc x2 - IV cefazolin Q12 per pharmacy recommendation - follow WBC in CBC CKD with volume overload Patient was CKD baseline with Cr between 3-4. Patient was initially treated with IV lasix which was changed to home dose of Toresomide on 09/14/17. With increased Cr to above 4 we held Trosemide. - Hold home dose of Toresomide PO home med - c/w sevelamer calcium bicarbonate - c/w statin History of hypertension, gout, anemia -Hold hydralazine for now -Continue Uloric -Continue iron supplementation Full code DVT prophylaxis : mechanical and IV heparin, warfarin Diet: diabetic diet / low K and NA and fluid restriction Plan-continue fluid restriction continue antibiotics. Nephro, podiatry, vascular follow-up appreciated. Problem List: 1. Leg swelling 2. Afib Pain Ratin Pain Location: none Pain Goal: Remain pain free Pain Plan: none Tomorrow's Labs & Rationales: cbc,bep Geovanni BARBOUR,Richard 09/16/17 1535: Attending MD Review Statement Attending Statement Attending MD Statement: examined this patient, discuss w/resident/PA/BROOM WORKER, agreed w/resident/PA/BROOM WORKER, reviewed EMR data (avail), discussed with nursing, discussed with case mgmt, amended to note Attending Assessment/Plan: Patient seen and examined. Resting comfortably and not in any acute distress. No issues overnight. On monitor worker she remains in atrial fibrillation with controlled ventricular response she reports that her pain is controlled on current regimen. She is afebrile hemodynamically stable and leukocytosis trending down on labs. On examination she has some swelling of her left lower extremity with mild erythema. Intact surgical dressing is in place. We will continue current antibiotic regimen continue. Coumadin therapy and discontinue heparin infusion once INR is therapeutic.
[2017-09-16 08:44] LABS: ABSOLUTE BASOPHIL COUNT 0.1 /CUMM (0.0-0.2); ABSOLUTE EOSINOPHIL COUNT 0.4 /CUMM (0.0-0.7); ABSOLUTE GRANULOCYTE CT 8.4 /CUMM (1.4-6.5); ABSOLUTE LYMPH COUNT 2.4 /CUMM (1.2-3.4); ABSOLUTE MONOCYTE COUNT 1.1 /CUMM (0.10-0.60); BASOPHIL % 0.6 % (0.0-2.0); EOSINOPHIL % 3.3 % (0-5); HEMATOCRIT 27.5 % (37-47); MEAN CORPUSCULAR HGB 27.8 PG (27.0-31.0); MEAN CORPUSCULAR VOLUME 84.2 FL (81.0-99.0); MEAN PLATELET VOLUME 10.6 FL (7.4-10.4); PLATELET COUNT 175 /CUMM (130-400); RBC DISTRIBUTION WIDTH 16.1 % (11.5-14.5); RED BLOOD CELL CT 3.26 /CUMM (4.20-5.40); WHITE BLOOD CELL COUNT 12.3 /CUMM (4.8-10.8)
[2017-09-16 11:37] LABS: PTT 34 SEC (25-37)
--- NOTE | 2017-09-16 11:50 | PN- Cardiology ---
Subjective Subjective: * No chest discomfort, shortness of breath, lightheadedness or palpitations. * Legs remain swollen. * atrial fibrillation with controlled heart rate. * creatinine 4.0 * INR is 1.34 * Mildly increased WBC count Objective Vital Signs and I&Os Vital Signs Date Time Temp Pulse Resp B/P B/P Pulse O2 O2 Flow FiO2 Mean Ox Delivery Rate 09/16 826 Nasal 3.0L Cannula 09/16 0811 109 130/78 09/16 0810 109 130/78 09/16 0726 97.6 109 20 130/78 98 Nasal Cannula 09/16 0610 90 130/78 09/16 0025 94 112/86 09/15 2345 98.3 90 22 112/60 98 Nasal 3.0L Cannula 09/15 2208 Nasal 3.0L Cannula 09/15 2205 78 118/64 09/15 1814 95 114/82 09/15 1811 95 114/82 09/15 1508 98.0 115 20 118/76 100 Nasal 3.0L Cannula 09/15 1249 97.5 100 18 108/88 100 Nasal 2.0L Cannula Intake & Output 09/16 1600 09/16 0800 09/16 0000 09/15 1600 09/15 0800 09/15 0000 Intake Total 525 416 541.56 550 552.2 Output Total 600 Balance 525 416 541.56 550 -47.8 Intake, IV 125 176 301.56 550 112.2 Intake, Oral 400 240 240 0 440 Output, Urine 600 Patient 226 lb Weight Physical Exam: General: WD/overweight female in NAD; alert and oriented x 3 HEENT: NC/AT, PERRL, EOMi Neck: No JVD, right carotid bruit. Lungs: no crackles or wheezing Heart: irregularly irregular. Extremities: 2+ bilateral lower extremity edema with left foot erythema Assessment/Plan Assessment/Plan * This patient has a subtherapeutic INR. If no further surgical procedures are anticipated the patient should be given Coumadin with a goal INR of 2-2.5. Good rate control on her current drug regimen. Continue telemetry? Yes
--- NOTE | 2017-09-16 13:20 | Operative Report ---
Operative/Inv Procedure Report Surgery Date: 09/15/17 Name of Procedure: 1 open incision and drainage deep to the deep fascia with exposure of the extensor tendon and tendon sheath multiple sites left foot 2 delayed primary closure of open surgical wound left foot 3 intraoperative administration of ankle block anesthesia 4 excisional debridement Pre-Operative Diagnosis: 1 open necrotic wound left foot 2 status post open I&D of dorsal space abscess left foot Post-Operative Diagnosis: The same Estimated Blood Loss: less than 50ml Surgeon/Explosive Ordnance Specialist: MISA FIELD DPM Anesthesia: moderate sedation, block Operative/Procedure Note Note: After obtaining informed consent the patient was brought to the operating room and placed on the operating table in the supine position. The patient was then securely fastened to the operating table utilizing safety belt. After Mr.'s of IV sedation, 10 mL of 0.5% Marcaine plain was obtained about the patient's left ankle. Digitorectal left foot, where a large full-thickness chronic was identified. A 15 blade visualized sharply revised skin margins. The dissection was then carried down deep to the D fashion with exposure of the extensor and flexor tendon and tendon sheath multiple sites, both proximally and distally. All necrotic nonviable infected tissue sharply evacuated wound bed. Nipple was then irrigated with 3 L of normal sterile saline fissure 50,000 units of bacitracin. Following this, the foot was redraped and the surgeon's top of gestation clean gloves. Any bleeding vessels identified were cauterized or ligated as encountered. Next, a dorsal medial dorsal lateral flap was developed with undermining, mobilization and advancement adjacent tissue centrally. The deep side flap was held with 3-0 Vicryl. Subtenons tissues reprepped with 4-0 Vicryl and the skin is reapproximated 3-0 nylon. Incision dressed with Xeroform 4 x 4's Kerlix and an Dorian wrap. The patient is noted tolerate both procedure and anesthesia well and the patient was transported from the operating room to recovery with vital signs stable best assess intact to both the dorsal medial dorsal lateral flaps.
[2017-09-16 15:29] VITALS: BP 157/64
[2017-09-16 21:54] LABS: PTT 97 SEC (25-37)
[2017-09-16 23:13] VITALS: BP 122/62
[2017-09-17 05:44] LABS: ABSOLUTE BASOPHIL COUNT 0.1 /CUMM (0.0-0.2); ABSOLUTE EOSINOPHIL COUNT 0.6 /CUMM (0.0-0.7); ABSOLUTE GRANULOCYTE CT 7.7 /CUMM (1.4-6.5); ABSOLUTE LYMPH COUNT 2.1 /CUMM (1.2-3.4); ABSOLUTE MONOCYTE COUNT 1.2 /CUMM (0.10-0.60); BASOPHIL % 0.7 % (0.0-2.0); EOSINOPHIL % 4.9 % (0-5); GRANULOCYTE % 65.8 % (42.2-75.2); HEMATOCRIT 27.8 % (37-47); MEAN CORPUSCULAR HGB 27.6 PG (27.0-31.0); MEAN CORPUSCULAR HGB CONC 32.5 G/DL (33.0-37.0); MEAN CORPUSCULAR VOLUME 84.9 FL (81.0-99.0); MEAN PLATELET VOLUME 8.9 FL (7.4-10.4); PLATELET COUNT 163 /CUMM (130-400); RBC DISTRIBUTION WIDTH 15.9 % (11.5-14.5); RED BLOOD CELL CT 3.28 /CUMM (4.20-5.40); WHITE BLOOD CELL COUNT 11.7 /CUMM (4.8-10.8)
[2017-09-17 05:53] LABS: PT 16.1 SEC (9.4-12.5); PTT 60 SEC (25-37)
[2017-09-17 06:40] VITALS: BP 138/74
--- NOTE | 2017-09-17 08:50 | PN- Housestaff ---
Emily Juarez 09/17/17 0850: Subjective Follow-up For: Hematoma A. fib Tele-Events Since Last Visit: afib 80 90 Subjective: I examined the patient. Patient is feeling better today. Not to chief complaint. Still thinking about continue warfarin or not. Review of Systems Constitutional: Reports: see HPI. Objective Last 24 Hrs of Vital Signs/I&O Vital Signs Date Time Temp Pulse Resp B/P B/P Pulse O2 O2 Flow FiO2 Mean Ox Delivery Rate 09/17 0900 Nasal 1.0L Cannula 09/17 0843 98 138/74 / 0640 97.6 98 22 138/74 92 Nasal Cannula 09/17 0615 82 122/62 09/16 2348 82 122/62 / 2313 97.5 111 20 122/62 90 Nasal 1.0L Cannula 09/16 2120 Nasal 1.0L Cannula 09/16 2018 153/78 09/16 1736 84 157/64 09/16 1529 98.4 84 22 157/64 100 Nasal 3.0L Cannula Intake & Output 09/17 1600 09/17 0800 09/17 0000 Intake Total 432 120 Output Total Balance 432 120 Intake, IV 192 Intake, Oral 240 120 Physical Exam General Appearance: Alert, Oriented X3, Cooperative Other Physical Findings: Skin: bilateral LE skin changes. HEENT: Atraumatic, EOMI, Mucous Membr. moist/pink Cardiovascular: Normal S1, Normal S2, irreg irreg, tachicardic Lungs: Clear to Auscultation left foot in bandages Current Medications: Current Medications Sig/Cole Start time Last Medication Dose Route Stop Time Status Admin Acetaminophen 650 MG .STK-MED ONE 09/16 2010 DC PO 09/16 2011 Acetaminophen 650 MG Q6P PRN 09/09 1730 AC 09/16 PO 2017 Atorvastatin Calcium 40 MG 1700 09/10 1700 AC 09/16 PO 1623 Calcitriol 0.25 MCG DAILY 09/10 1000 AC 09/17 PO 0845 Cefazolin Sodium 1,000 MG Q12H 09/09 1700 AC 09/17 IV 0615 Diltiazem HCl 60 MG Q6 09/12 1200 AC 09/17 PO 0615 Febuxostat 40 MG DAILY 09/09 1745 AC 09/17 PO 0840 Ferrous Sulfate 325 MG TID 09/09 2200 AC 09/17 PO 0841 Heparin Sodium 4,100 UNIT ONE ONE 09/17 1100 DC (Porcine) IV 09/17 1101 Heparin Sodium 7,687 UNIT ONE ONE 09/16 1330 DC 09/16 (Porcine) IV 09/16 1331 1346 Heparin Sodium 25,000 UNIT Q24H 09/15 1500 AC 09/16 (Porcine) IV 1635 Sodium Chloride 500 ML Insulin Aspart 0 TIDAC 09/15 1700 AC 09/17 SC 0920 Lactobacillus 1 CAP DAILY 09/14 1000 AC 09/17 Acidophilus PO 0844 Metoprolol Tartrate 37.5 MG BID 09/15 2200 AC 09/17 PO 0843 Ondansetron HCl 4 MG Q6P PRN 09/13 1515 AC 09/13 IV 2057 Sevelamer Carbonate 1,600 MG WM 09/09 1700 AC 09/17 PO 0839 Sodium Bicarbonate 1,300 MG BID 09/09 2200 AC 09/17 PO 0845 Warfarin Sodium 8 MG ONCE ONE 09/17 1230 UNVr PO 09/17 1231 Warfarin Sodium 5 MG COUMADIN 1700 ONE 09/16 1700 DC 09/16 PO 09/16 1701 1623 Assessment/Plan Assessment: 72-year-old lady with past medical history of A. fib on warfarin Cardizem and metoprolol, CKD, moderate to severe pulmonary hypertension discharge 7 days ago from hospital with diagnosis of A. fib and back to the hospital with chief complaint of shortness of breath. Doppler of the legs ruled out DVT CXR : Cardiopulmonary with pulmonary venous congestion and interstitial edema, similar to prior. Increased size of the small to moderate right pleural effusion. Trace left effusion. Patient was admitted to telemetry floor for management of following conditions: aFib with RVR with sub-therapeutic INR Patient on Cardizem 60 q6 and metoprolol 25, planned increase metoprolol to 37.5 BID. INR was sub-therapeutic INR at the time of admission, Coumadin dosing was adjusted during admission. Omar-vasc score 5 Had discussion with patient and attending regarding continuation of anticoagulation due to high Omar-vasc score suggesting high chances of complications (Stroke risk 7.2% per year and 10.0% risk of stroke/TIA/systemic embolism). decided to continue anticoagulation and instruct patient to be more carefull of fall/physical trauma. - Contiue tele - Continue cardizem 60 q60 change to long acting tomorrow - metoprolol to 37.5 BID - Dose Coumadin and check INR daily. INR is still subtherapeutic we will dose Coumadin to 8. Left foot swelling patient had increased swelling of left foot patient underwent two step I&D and sunsequent closure (09/15/17). - follow pod/vasc surgery appreciated - follow bc x2 - IV cefazolin Q12 per pharmacy recommendation - follow WBC in CBC CKD with volume overload Patient was CKD baseline with Cr between 3-4. Patient was initially treated with IV lasix which was changed to home dose of Toresomide on 09/14/17. With increased Cr to above 4 we held Trosemide. - Hold home dose of Toresomide PO home med - c/w sevelamer calcium bicarbonate - c/w statin History of hypertension, gout, anemia -Hold hydralazine for now -Continue Uloric -Continue iron supplementation Full code DVT prophylaxis : mechanical and IV heparin, warfarin Diet: diabetic diet / low K and NA and fluid restriction Plan-continue fluid restriction continue antibiotics. Nephro, podiatry, vascular follow-up appreciated. Problem List: 1. Afib 2. Leg swelling Pain Ratin Pain Location: left foot Pain Goal: Pain 4 or less Pain Plan: same Tomorrow's Labs & Rationales: cbc bep INR Richard Galarza MD 09/17/17 1553: Attending MD Review Statement Attending Statement Attending MD Statement: examined this patient, discuss w/resident/PA/STRAP MACHINE OPERATOR, agreed w/resident/PA/STRAP MACHINE OPERATOR, reviewed EMR data (avail), discussed with nursing, amended to note Attending Assessment/Plan: Patient seen and examined. No issues overnight. No new complaints. She remains in Afib with controlled ventricular response. She is afebrile and hemodynamically stable. Denies any pain lower extremities are present. On examination she has persistent erythema of the left lower extremity. Surgical dressing remains intact. INR remains subtherapeutic today. Recommendations: -Continue Coumadin to INR goal. -Continue antibiotic therapy. Follow-up with the podiatry service regarding duration of therapy. Patient may benefit from ID consultation for antibiotics to treat.
[2017-09-17 14:56] VITALS: BP 122/70
[2017-09-17 17:57] LABS: PTT 73 SEC (25-37)
[2017-09-17 21:59] VITALS: BP 118/70
[2017-09-18 06:29] VITALS: BP 130/84
[2017-09-18 08:07] LABS: ABSOLUTE BASOPHIL COUNT 0.1 /CUMM (0.0-0.2); ABSOLUTE EOSINOPHIL COUNT 0.6 /CUMM (0.0-0.7); ABSOLUTE GRANULOCYTE CT 8.1 /CUMM (1.4-6.5); ABSOLUTE LYMPH COUNT 2.1 /CUMM (1.2-3.4); ABSOLUTE MONOCYTE COUNT 0.9 /CUMM (0.10-0.60); EOSINOPHIL % 5.4 % (0-5); HEMATOCRIT 28.1 % (37-47); MEAN CORPUSCULAR HGB 27.8 PG (27.0-31.0); MEAN CORPUSCULAR HGB CONC 33.1 G/DL (33.0-37.0); MEAN CORPUSCULAR VOLUME 84.1 FL (81.0-99.0); MEAN PLATELET VOLUME 10.1 FL (7.4-10.4); PLATELET COUNT 148 /CUMM (130-400); RBC DISTRIBUTION WIDTH 15.9 % (11.5-14.5); RED BLOOD CELL CT 3.35 /CUMM (4.20-5.40)
[2017-09-18 08:23] LABS: PT 18.9 SEC (9.4-12.5); PTT 69 SEC (25-37)
--- NOTE | 2017-09-18 08:31 | PN- Housestaff ---
Ganesh Forde MD,Ami 09/18/17 0831: Subjective Follow-up For: Margaret duffy with RVR CHF/CKD volume overload Left Foot swelling, collection Tele-Events Since Last Visit: Margaret duffy, Subjective: Patient visited today, pleasant lady was sitting at the bedside comfortably in no acute distress, was alert and oriented. She reported relative deterioration of bilateral leg swelling as we were holding diuretics for the last 2 days due to increased creatinine. Had no complaints related to tachycardia/palpitations/heart racing. Walked for few steps to bathroom. No fever or chills, no shortness of breathing, no chest pain, no other events. Patient decided to continue anticoagulation at this point. We will continue dosing warfarin and simultaneous IV heparin. Per communication by cardio no telemetry needed at this point. Heart rate well controlled with metoprolol 37.5 twice a day and Cardizem 240 long-acting. We will discontinue antibiotics today as received total of 10 days cefazolin. Review of Systems Constitutional: Reports: no symptoms. Objective Last 24 Hrs of Vital Signs/I&O Vital Signs Date Time Temp Pulse Resp B/P B/P Pulse O2 O2 Flow FiO2 Mean Ox Delivery Rate 09/18 0913 93 110/68 / 0822 96 130/84 09/18 0800 Nasal 2.0L Cannula 09/18 0629 97.6 96 12 130/84 97 Nasal 2.0L Cannula 09/18 0536 98 110/68 / 0015 97 118/70 / 2339 93 Nasal 2.0L Cannula 09/17 2159 97.0 92 18 118/70 93 09/17 2127 112 118/70 09/17 1747 104 122/70 02/04 1456 97.9 104 20 122/70 97 Room Air Intake & Output 09/18 1600 /05 0800 02/05 0000 Intake Total 365 200 Output Total 450 400 Balance -85 -200 Intake, IV 215 Intake, Oral 150 200 Output, Urine 450 400 Physical Exam General Appearance: Alert, Oriented X3, Cooperative, No Acute Distress Skin: bilateral LE skin changes Dressing in place Skin Temp/Moisture Exam: Warm/Dry Sepsis Skin Exam (color): Normal for Ethnicity HEENT: Atraumatic, EOMI, Mucous Membr. moist/pink Cardiovascular: Normal S1, Normal S2, irreg irreg Lungs: Clear to Auscultation Abdomen: Soft, No Tenderness Neurological: Normal Speech Extremities: as noted above Current Medications: Current Medications Sig/Cole Start time Last Medication Dose Route Stop Time Status Admin Acetaminophen 650 MG Q6P PRN 09/09 1730 AC 09/16 PO 2017 Atorvastatin Calcium 40 MG 1700 09/10 1700 AC 09/17 PO 1749 Calcitriol 0.25 MCG DAILY 09/10 1000 AC 09/18 PO 0822 Cefazolin Sodium 1,000 MG Q12H 09/09 1700 DC 09/18 IV 0536 Diltiazem HCl 240 MG DAILY 09/18 1000 AC 09/18 PO 0915 Diltiazem HCl 60 MG Q6 09/12 1200 DC 09/18 PO 0536 Febuxostat 40 MG DAILY 09/09 1745 AC 09/18 PO 0822 Ferrous Sulfate 325 MG TID 09/09 2200 AC 09/18 PO 0821 Furosemide 40 MG DAILY 09/18 1145 AC 09/18 PO 1233 Heparin Sodium 25,000 UNIT Q24H 09/15 1500 AC 09/18 (Porcine) IV 0646 Sodium Chloride 500 ML Insulin Aspart 0 TIDAC 09/15 1700 AC 09/18 SC 1233 Lactobacillus 1 CAP DAILY 09/14 1000 AC 09/18 Acidophilus PO 0821 Metoprolol Tartrate 37.5 MG BID 09/15 2200 AC 09/18 PO 0822 Ondansetron HCl 4 MG Q6P PRN 09/13 1515 AC 09/13 IV 2057 Sevelamer Carbonate 1,600 MG WM 09/09 1700 AC 09/18 PO 1233 Sodium Bicarbonate 1,300 MG BID 09/09 2200 AC 09/18 PO 0822 Warfarin Sodium 8 MG COUMADIN 1700 ONE 09/17 1700 DC 09/17 PO 09/17 1701 1746 Last 24 Hrs of Lab/Rayshawn Results Last 24 Hrs of Labs/Mics: Laboratory Tests 09/18/17 0700: Anion Gap 14, Estimated GFR 12 L, BUN/Creatinine Ratio 27.3 H, PT 18.9 H, INR 1.81 H, APTT 69 H, CBC w Diff NO MAN DIFF REQ, RBC 3.35 L, MCV 84.1, MCH 27.8 , MCHC 33.1, RDW 15.9 H, MPV 10.1, Gran % 68.0, Lymphocytes % 17.9 L, Monocytes % 7.7, Eosinophils % 5.4 H, Basophils % 1.0, Absolute Granulocytes 8.1 H, Absolute Lymphocytes 2.1, Absolute Monocytes 0.9 H, Absolute Eosinophils 0.6, Absolute Basophils 0.1 09/17/17 1643: APTT 73 H Assessment/Plan Assessment: 72-year-old lady with past medical history of A. fib on warfarin Cardizem and metoprolol, CKD, moderate to severe pulmonary hypertension discharge 7 days ago from hospital with diagnosis of A. fib and back to the hospital with chief complaint of shortness of breath. Doppler of the legs ruled out DVT CXR : Cardiopulmonary with pulmonary venous congestion and interstitial edema, similar to prior. Increased size of the small to moderate right pleural effusion. Trace left effusion. Patient was admitted to telemetry floor for management of following conditions: aFib with RVR with sub-therapeutic INR Patient on Cardizem 60 q6 and metoprolol 25, planned increase metoprolol to 37.5 BID. INR was sub-therapeutic INR at the time of admission, Coumadin dosing was adjusted during admission. Omar-vasc score 5 Had discussion with patient and attending regarding continuation of anticoagulation due to high Omar-vasc score suggesting high chances of complications (Stroke risk 7.2% per year and 10.0% risk of stroke/TIA/systemic embolism). decided to continue anticoagulation and instruct patient to be more carefull of fall/physical trauma. - Contiue tele - Continue cardizem long acting - Continue metoprolol to 37.5 BID - Dose Coumadin and check INR daily - INR is still subtherapeutic we will dose Coumadin to 6. Left foot swelling patient had increased swelling of left foot patient underwent two step I&D and sunsequent closure (09/15/17). Blood cultures negative. - follow pod/vasc surgery appreciated - Recieved IV cefazolin Q12 (adjusted dose per nephro), total 10 days, will DC today - follow WBC in CBC CKD with volume overload Patient was CKD baseline with Cr between 3-4. Patient was initially treated with IV lasix which was changed to home dose of Toresomide on 09/14/17. With increased Cr to above 4 we held Trosemide. - Hold home dose of Toresomide PO home med - c/w sevelamer calcium bicarbonate - c/w statin - per communication with Nephro will start Lasix 40 mg by mouth History of hypertension, gout, anemia -Hold hydralazine for now -Continue Uloric -Continue iron supplementation Full code DVT prophylaxis : mechanical and IV heparin, warfarin Diet: diabetic diet / low K and NA and fluid restriction Plan-continue fluid restriction continue antibiotics. Nephro, podiatry, vascular follow-up appreciated. Problem List: 1. Afib 2. Leg swelling Pain Ratin Pain Location: None Pain Goal: Pain 4 or less Pain Plan: Continue current plan Tomorrow's Labs & Rationales: CBC BEP INR Manny Chan MD 09/18/17 1858: Attending MD Review Statement Attending Statement Attending MD Statement: examined this patient, discuss w/resident/PA/YOUTH LIAISON OFFICER, agreed w/resident/PA/YOUTH LIAISON OFFICER, reviewed EMR data (avail), discussed with nursing, discussed with case mgmt, amended to note Attending Assessment/Plan: The patient was seen and discussed with house staff. Appreciate cardiology and nephrology input. Will continue coumadin/heparin. OK to discontinue IV Ancef.
[2017-09-18 09:13] VITALS: BP 110/68
--- NOTE | 2017-09-18 11:39 | PN- Nephrology ---
Assessment/Plan Assessment: Pt comfortable Cr in general range it had been (fluctuates in mid 3's). She has advanced CKD IV. Could resume lasix (start 40 po daily). Inocente Mchugh MD Suggestion: . Subjective Subjective: Pt confortable. Cr down to 3.7. diuretics on hold for a few days given rise in Cr. Objective Vital Signs and I&Os F NAD 110/68 93 Lungs clear Cor RRR Abd soft Ext 2+edema Results Pertinent Lab Results: Laboratory Tests 09/18 09/17 09/17 0700 1643 0600 Chemistry Sodium (137 - 145 mmol/L) 141 Potassium (3.5 - 5.1 mmol/L) 4.2 Chloride (98 - 107 mmol/L) 99 Carbon Dioxide (22 - 30 mmol/L) 29 Anion Gap (5 - 16) 14 BUN (7 - 17 mg/dL) 101 *H Creatinine (0.5 - 1.0 mg/dL) 3.7 H Estimated GFR (>60 ml/min) 12 L BUN/Creatinine Ratio (7 - 25 %) 27.3 H Coagulation PT (9.4 - 12.5 SEC) 18.9 H Cancelled INR (0.90 - 1.19) 1.81 H Cancelled APTT (25 - 37 SEC) 69 H 73 H Hematology CBC w Diff NO MAN DIFF REQ WBC (4.8 - 10.8 /CUMM) 12.0 H RBC (4.20 - 5.40 /CUMM) 3.35 L Hgb (12.0 - 16.0 G/DL) 9.3 L Hct (37 - 47 %) 28.1 L MCV (81.0 - 99.0 FL) 84.1 MCH (27.0 - 31.0 PG) 27.8 MCHC (33.0 - 37.0 G/DL) 33.1 RDW (11.5 - 14.5 %) 15.9 H Plt Count (130 - 400 /CUMM) 148 MPV (7.4 - 10.4 FL) 10.1 Gran % (42.2 - 75.2 %) 68.0 Lymphocytes % (20.5 - 51.1 %) 17.9 L Monocytes % (1.7 - 9.3 %) 7.7 Eosinophils % (0 - 5 %) 5.4 H Basophils % (0.0 - 2.0 %) 1.0 Absolute Granulocytes (1.4 - 6.5 /CUMM) 8.1 H Absolute Lymphocytes (1.2 - 3.4 /CUMM) 2.1 Absolute Monocytes (0.10 - 0.60 /CUMM) 0.9 H Absolute Eosinophils (0.0 - 0.7 /CUMM) 0.6 Absolute Basophils (0.0 - 0.2 /CUMM) 0.1 09/17 09/16 09/16 0525 [facility] 0930 Chemistry Sodium (137 - 145 mmol/L) 142 Potassium (3.5 - 5.1 mmol/L) 4.2 Chloride (98 - 107 mmol/L) 100 Carbon Dioxide (22 - 30 mmol/L) 28 Anion Gap (5 - 16) 13 BUN (7 - 17 mg/dL) 100 H Creatinine (0.5 - 1.0 mg/dL) 3.8 H Estimated GFR (>60 ml/min) 12 L BUN/Creatinine Ratio (7 - 25 %) 26.3 H Coagulation PT (9.4 - 12.5 SEC) 16.1 H INR (0.90 - 1.19) 1.54 H APTT (25 - 37 SEC) 60 H 97 H 34 Hematology CBC w Diff NO MAN DIFF REQ WBC (4.8 - 10.8 /CUMM) 11.7 H RBC (4.20 - 5.40 /CUMM) 3.28 L Hgb (12.0 - 16.0 G/DL) 9.1 L Hct (37 - 47 %) 27.8 L MCV (81.0 - 99.0 FL) 84.9 MCH (27.0 - 31.0 PG) 27.6 MCHC (33.0 - 37.0 G/DL) 32.5 L RDW (11.5 - 14.5 %) 15.9 H Plt Count (130 - 400 /CUMM) 163 MPV (7.4 - 10.4 FL) 8.9 Gran % (42.2 - 75.2 %) 65.8 Lymphocytes % (20.5 - 51.1 %) 18.0 L Monocytes % (1.7 - 9.3 %) 10.6 H Eosinophils % (0 - 5 %) 4.9 Basophils % (0.0 - 2.0 %) 0.7 Absolute Granulocytes (1.4 - 6.5 /CUMM) 7.7 H Absolute Lymphocytes (1.2 - 3.4 /CUMM) 2.1 Absolute Monocytes (0.10 - 0.60 /CUMM) 1.2 H Absolute Eosinophils (0.0 - 0.7 /CUMM) 0.6 Absolute Basophils (0.0 - 0.2 /CUMM) 0.1 09/16 09/15 0630 2045 Chemistry Sodium (137 - 145 mmol/L) 140 Potassium (3.5 - 5.1 mmol/L) 4.4 Chloride (98 - 107 mmol/L) 98 Carbon Dioxide (22 - 30 mmol/L) 27 Anion Gap (5 - 16) 15 BUN (7 - 17 mg/dL) 94 H Creatinine (0.5 - 1.0 mg/dL) 4.0 H Estimated GFR (>60 ml/min) 11 L BUN/Creatinine Ratio (7 - 25 %) 23.5 Coagulation PT (9.4 - 12.5 SEC) 14.0 H INR (0.90 - 1.19) 1.34 H APTT (25 - 37 SEC) 102 *H Hematology CBC w Diff NO MAN DIFF REQ WBC (4.8 - 10.8 /CUMM) 12.3 H RBC (4.20 - 5.40 /CUMM) 3.26 L Hgb (12.0 - 16.0 G/DL) 9.1 L Hct (37 - 47 %) 27.5 L MCV (81.0 - 99.0 FL) 84.2 MCH (27.0 - 31.0 PG) 27.8 MCHC (33.0 - 37.0 G/DL) 33.0 RDW (11.5 - 14.5 %) 16.1 H Plt Count (130 - 400 /CUMM) 175 MPV (7.4 - 10.4 FL) 10.6 H Gran % (42.2 - 75.2 %) 68.0 Lymphocytes % (20.5 - 51.1 %) 19.4 L Monocytes % (1.7 - 9.3 %) 8.7 Eosinophils % (0 - 5 %) 3.3 Basophils % (0.0 - 2.0 %) 0.6 Absolute Granulocytes (1.4 - 6.5 /CUMM) 8.4 H Absolute Lymphocytes (1.2 - 3.4 /CUMM) 2.4 Absolute Monocytes (0.10 - 0.60 /CUMM) 1.1 H Absolute Eosinophils (0.0 - 0.7 /CUMM) 0.4 Absolute Basophils (0.0 - 0.2 /CUMM) 0.1
--- NOTE | 2017-09-18 12:17 | PN- Cardiology ---
Subjective Subjective: No complaints. Remains in atrial fibrillation with a ventricular response of around 90 bpm on telemetry. Objective Vital Signs and I&Os Vital Signs Date Time Temp Pulse Resp B/P B/P Pulse O2 O2 Flow FiO2 Mean Ox Delivery Rate 09/18 0913 93 110/68 / 0822 96 130/84 09/18 0800 Nasal 2.0L Cannula 09/18 0629 97.6 96 12 130/84 97 Nasal 2.0L Cannula 09/18 0536 98 110/68 09/18 0015 97 118/70 09/17 2339 93 Nasal 2.0L Cannula 09/17 2159 97.0 92 18 118/70 93 09/17 2127 112 118/70 09/17 1747 104 122/70 09/17 1456 97.9 104 20 122/70 97 Room Air 09/17 1235 98 138/74 Intake & Output 09/18 1600 09/18 0800 09/18 0000 09/17 1600 09/17 0800 09/17 0000 Intake Total 365 200 650 432 120 Output Total 450 400 800 Balance -85 -200 -150 432 120 Intake, IV 215 150 192 Intake, Oral 150 200 500 240 120 Number 1 Bowel Movements Output, Urine 450 400 800 Physical Exam: Well-developed, overweight elderly female in no acute distress. Vital signs: See above. HEENT: Normocephalic, atraumatic, EOMI, slightly dry mucous membranes. Neck: No JVD, right carotid bruit. Lungs: Decreased breath sounds otherwise clear. Heart: S1, S2 (irregularly, irregular) with soft (grade 1-2/6) systolic murmur. Abdomen: Soft, nontender, positive bowel sounds. Extremities: 1-2+ bilateral lower extremity edema. Current Medications: Current Medications Sig/Cole Start time Last Medication Dose Route Stop Time Status Admin Acetaminophen 650 MG .STK-MED ONE 09/17 1358 DC PO 09/17 1359 Acetaminophen 650 MG Q6P PRN 09/09 1730 AC 09/16 PO 2017 Atorvastatin Calcium 40 MG 1700 09/10 1700 AC 09/17 PO 1749 Calcitriol 0.25 MCG DAILY 09/10 1000 AC 09/18 PO 0822 Cefazolin Sodium 1,000 MG Q12H 09/09 1700 AC 09/18 IV 0536 Diltiazem HCl 240 MG DAILY 09/18 1000 AC 09/18 PO 0915 Diltiazem HCl 60 MG Q6 09/12 1200 DC 09/18 PO 0536 Febuxostat 40 MG DAILY 09/09 1745 AC 09/18 PO 0822 Ferrous Sulfate 325 MG TID 09/09 2200 AC 09/18 PO 0821 Furosemide 40 MG DAILY 09/18 1145 AC PO Heparin Sodium 25,000 UNIT Q24H 09/15 1500 AC 09/18 (Porcine) IV 0646 Sodium Chloride 500 ML Insulin Aspart 0 TIDAC 09/15 1700 AC 09/18 SC 0821 Lactobacillus 1 CAP DAILY 09/14 1000 AC 09/18 Acidophilus PO 0821 Metoprolol Tartrate 37.5 MG BID 09/15 2200 AC 09/18 PO 0822 Ondansetron HCl 4 MG Q6P PRN 09/13 1515 AC 09/13 IV 2057 Sevelamer Carbonate 1,600 MG WM 09/09 1700 AC 09/18 PO 0821 Sodium Bicarbonate 1,300 MG BID 09/09 2200 AC 09/18 PO 0822 Warfarin Sodium 8 MG COUMADIN 1700 ONE 09/17 1700 DC 09/17 PO 09/17 1701 1746 Results Last 48 Hrs of Labs/Mics: Laboratory Tests 09/18/17 0700: Anion Gap 14, Estimated GFR 12 L, BUN/Creatinine Ratio 27.3 H, PT 18.9 H, INR 1.81 H, APTT 69 H, CBC w Diff NO MAN DIFF REQ, RBC 3.35 L, MCV 84.1, MCH 27.8 , MCHC 33.1, RDW 15.9 H, MPV 10.1, Gran % 68.0, Lymphocytes % 17.9 L, Monocytes % 7.7, Eosinophils % 5.4 H, Basophils % 1.0, Absolute Granulocytes 8.1 H, Absolute Lymphocytes 2.1, Absolute Monocytes 0.9 H, Absolute Eosinophils 0.6, Absolute Basophils 0.1 09/17/17 1643: APTT 73 H 09/17/17 0600: PT Cancelled, INR Cancelled 09/17/17 0525: Anion Gap 13, Estimated GFR 12 L, BUN/Creatinine Ratio 26.3 H, PT 16.1 H, INR 1.54 H, APTT 60 H, CBC w Diff NO MAN DIFF REQ, RBC 3.28 L, MCV 84.9, MCH 27.6 , MCHC 32.5 L, RDW 15.9 H, MPV 8.9, Gran % 65.8, Lymphocytes % 18.0 L, Monocytes % 10.6 H, Eosinophils % 4.9, Basophils % 0.7, Absolute Granulocytes 7.7 H, Absolute Lymphocytes 2.1, Absolute Monocytes 1.2 H, Absolute Eosinophils 0.6, Absolute Basophils 0.1 09/16/17 1950: APTT 97 H Assessment/Plan Assessment/Plan [id number] w/ hx gout, HLD, HTN, DM, CKD s/p RUE AV fistula 06/2016 w/o use necessity, ch anemia on RITO, & PAF s/p electrical CV following a CARI ~2015 w/ recurrence and successful antiarrhythmic Rx w/ chemical CV ~2016 who was recently hospitalized (08/23-09/01/2017) for AF w/ RVR and who gradually improved w/ standard therapy, but who became progressively SOB and edematous w/ wt gain at home despite compliance w/ her diet & medical regimen and who was found to be in AF w/ RVR & HFpEF. Continue strict inputs/outputs and daily weights and maintain on IV heparin for short term perioperatively. Note H/H=9.1/28.1 w/ PTT=69s & INR=1.81. Continue present cardiac regimen. Anticipate discharge soon. Continue telemetry? No
[2017-09-18 14:37] VITALS: BP 116/64
[2017-09-18 20:31] LABS: PTT 74 SEC (25-37)
[2017-09-18 22:23] VITALS: BP 128/64
[2017-09-19 07:13] VITALS: BP 112/70
[2017-09-19 07:52] LABS: ABSOLUTE BASOPHIL COUNT 0.1 /CUMM (0.0-0.2); ABSOLUTE EOSINOPHIL COUNT 0.7 /CUMM (0.0-0.7); ABSOLUTE GRANULOCYTE CT 6.8 /CUMM (1.4-6.5); ABSOLUTE LYMPH COUNT 2.2 /CUMM (1.2-3.4); ABSOLUTE MONOCYTE COUNT 1.1 /CUMM (0.10-0.60); EOSINOPHIL % 6.3 % (0-5); GRANULOCYTE % 62.6 % (42.2-75.2); HEMATOCRIT 27.3 % (37-47); MEAN CORPUSCULAR HGB 27.7 PG (27.0-31.0); MEAN CORPUSCULAR HGB CONC 33.2 G/DL (33.0-37.0); MEAN CORPUSCULAR VOLUME 83.6 FL (81.0-99.0); MEAN PLATELET VOLUME 9.8 FL (7.4-10.4); PLATELET COUNT 157 /CUMM (130-400); RBC DISTRIBUTION WIDTH 16.3 % (11.5-14.5); RED BLOOD CELL CT 3.27 /CUMM (4.20-5.40); WHITE BLOOD CELL COUNT 10.9 /CUMM (4.8-10.8)
[2017-09-19 08:19] VITALS: BP 112/70
[2017-09-19 09:19] LABS: PT 26.6 SEC (9.4-12.5)
[2017-09-19 09:25] LABS: PTT 104 SEC (25-37)
[2017-09-19] MEDS ORDERED: COUMADIN6 M1 PO (10:41)
[2017-09-19] MEDS ORDERED: METOPROLOL TART25 M1 PO ×2 (11:44→14:58)
[2017-09-19] MEDS ORDERED: CARDIZEM CD240 M1 PO ×2 (11:44→14:58)
[2017-09-19] MEDS ORDERED: LASIX40 M1 PO ×2 (11:44→14:58)
--- NOTE | 2017-09-19 11:51 | Discharge Summary ---
Visit Information Visit Dates Admission Date: 09/09/17 Discharge Date: 09/19/17 Hospital Course Course Attending Physician: Manny Chan MD Primary Care Physician: Zakiya BARBOUR,[facility] Course: 72-year-old lady with past medical history of A. fib on warfarin Cardizem and metoprolol, CKD, moderate to severe pulmonary hypertension discharged 7 days before admission from hospital with diagnosis of A. fib; presented back to the hospital with chief complaint of shortness of breath. Doppler of the legs was done to rule out DVT CXR : Cardiopulmonary with pulmonary venous congestion and interstitial edema, similar to prior. Increased size of the small to moderate right pleural effusion. Trace left effusion. Patient was admitted to telemetry floor for management of following conditions: aFib with RVR with sub-therapeutic INR Heart rate was controlled. Patient was initially on Cardizem 60 q6 and metoprolol 25, planned to increase metoprolol to 37.5 BID and changed Cardizem to long-acting later. INR was sub-therapeutic INR at the time of admission, Coumadin dosing was adjusted during admission. Omar-vasc score 5. Had discussion with patient and attending regarding continuation of anticoagulation due to high Omar-vasc score suggesting high chances of complications (Stroke risk 7.2% per year and 10.0% risk of stroke/TIA/systemic embolism). Decided to continue anticoagulation and instruct patient to be more carefull of fall/physical trauma. INR was subtherapeutic at admission and we increased the dose Coumadin to 6 with recommendation to follow in outpatient. Left foot swelling patient had increased swelling of left foot. US of the left foot was done: 1. Diffuse cutaneous and soft tissue edema and thickening is seen in the dorsum of the foot underlying the patient's erythema, suspicious for cellulitis. 2. Focal superficial irregular complex fluid collection is seen in the dorsum of the forefoot. This may represent a hematoma or a infected fluid collection/abscess. Clinical correlation is requested. patient underwent two step I&D and then sunsequent closure (09/15/17). Blood cultures negative. Recieved IV cefazolin Q12 (adjusted dose per nephro), total 10 days. Patient was instructed to follow with assessment nurse practitioner after discharge. CKD with volume overload Patient was CKD baseline with Cr between 3-4. Patient was initially treated with IV lasix which was changed to home dose of Toresomide on 09/14/17. With increased Cr diuretics were held and then was changed to by mouth Lasix 40 mg.We continued sevelamer calcium bicarbonate. History of hypertension, gout, anemia -We discontinued hydralazine considering other medication for heart rate control. We also continued Uloric iron supplementation Full code DVT prophylaxis : mechanical and IV heparin, warfarin Diet: diabetic diet / low K and NA and fluid restriction Patient was then discharged with recommendatons below. Allergies: Coded Allergies: sitagliptin (From ) (Severe, THROAT CLOSURE 02/05/17) Significant Procedures: A: 09/13/17 1 open incision and drainage deep to the deep fascia with exposure of the extensor tendon and tendon sheath multiple sites left foot 2 intraoperative administration of ankle block anesthesia 3 excisional debridement B: 09/16/17 1 open incision and drainage deep to the deep fascia with exposure of the extensor tendon and tendon sheath multiple sites left foot 2 delayed primary closure of open surgical wound left foot 3 intraoperative administration of ankle block anesthesia 4 excisional debridement Disposition Summary Disposition Principal Diagnosis: Afib with RVR Additional Diagnosis: CKD, CHF, bilateral leg swelling Foot hematoma, infection Discharge Disposition: home or self care Discharge Instructions General Discharge Information Code Status: Full Code Patient's Diet: diabetic diet / low K and NA and fluid restriction Patient's Activity: Self limited Follow-Up Instructions/Appts: Patient was discharged with recommendations below: Please follow with your PCP within one week of discharge. Please follow with your ticket writer within 1 week of discharge with laboratory tests ordered. Please follow with your assessment nurse practitioner within 1 week of discharge for sutur removal. Please monitor your INR and adjust your Coumadin based on cardiology's recommendation. Please come back to hospital if symptoms worsen. Medications at Discharge Discharge Medications: Stop taking the following medications: Torsemide (Torsemide) 20 MG TABLET ORAL DAILY Qty = 30 Hydralazine HCl (Hydralazine HCl) 25 MG TABLET ORAL DAILY Metoprolol Tartrate (Metoprolol Tartrate) 25 MG TABLET ORAL TWICE DAILY Qty = 60 Diltiazem HCl (Diltiazem 24HR Cd) 180 MG CAP.ER.24H ORAL DAILY Qty = 30 Continue taking these medications: Febuxostat (Uloric) 40 MG TABLET 1 Tablet ORAL DAILY Qty = 30 Comments: Last Taken: 09/19/17 Time: 9 AM Rosuvastatin Calcium (Crestor) 10 MG TABLET 1 Tablet ORAL DAILY Qty = 30 Comments: Last Taken: 09/18/17 Time: 5PM PT GIVEN ATORVASTATIN Sevelamer Carbonate (Renvela) 800 MG TABLET 2 Tablet ORAL WITH MEALS Qty = 180 Comments: Last Taken: 09/19/17 Time: 12PM Calcitriol (Calcitriol) 0.25 MCG CAPSULE 1 Capsule ORAL DAILY Qty = 30 Comments: Last Taken: 09/19/17 Time: 9 AM Ferrous Sulfate (Ferrous Sulfate) 325 MG (65 MG IRON) TABLET 1 Tablet ORAL THREE TIMES DAILY Qty = 60 Instructions: . Comments: Last Taken: 09/19/17 Time: 9 AM Sodium Bicarbonate (Sodium Bicarbonate) 325 MG TABLET 1,300 Milligram ORAL TWICE DAILY Qty = 30 Instructions: . Comments: Last Taken: 09/19/17 Time: 9 AM Start taking the following new medications: Furosemide (Lasix) 40 MG TABLET 40 Milligram ORAL DAILY Qty = 30 No Refills Instructions: . Comments: Last Taken: 09/19/17 Time: 9AM Diltiazem HCl (Cardizem Cd) 240 MG CAP.ER.24H 240 Milligram ORAL DAILY Qty = 30 No Refills Instructions: . Comments: Last Taken: 09/19/17 Time: 9AM Metoprolol Tartrate (Metoprolol Tartrate) 25 MG TABLET 37.5 Milligram ORAL TWICE DAILY Qty = 60 Refills = 1 Instructions: . Comments: Last Taken: 09/19/17 Time: 9AM Warfarin Sodium (Coumadin) 1 MG TABLET 1 Tablet ORAL DAILY AT 5PM Qty = 30 Refills = 1 Instructions: Take in addition to 5mg regular dose to total of 6mg/day Comments: NOT GIVEN IN HOSPITAL Insulin Aspart (Niacinamide) (Fiasp 100 Unit/Ml Flextouch) 100 UNIT/ML (3 ML) INSULN.PEN 0 Inject into fatty tissue 3 TIMES DAILY BEFORE MEALS Qty = 18 No Refills Instructions: .Please administer as follow: Comments: Last Taken: 09/19/17 Time: 12PM PT GIVEN NOVOLOG SLIDING SCALE 80-150 mg/dl: No change 151-200 mg/dl: Plus 1 Unit 201-250 mg/dl: Plus 2 unit 251-300 mg/dl: Plus 3 unit 301-350 mg/dl: Plus 4 unit 351-400 mg/dl: Plus 6 unit more than 400 mg/dl: plus 8 units and call your doctor The following medications have been changed: Old: Warfarin Sodium (Coumadin) 5 MG TABLET 1 Tablet ORAL DAILY Qty = 30 New: Warfarin Sodium (Coumadin) 5 MG TABLET 1 Tablet ORAL DAILY Qty = 30 Instructions: .. Comments: NOT GIVEN IN HOSPITAL. PT GIVEN 6M 09/18/17 @ 5PM Copies To: Rosaline BARBOUR,Rosaline; Fadi BARBOUR,Lionel Krueger DPM; Noe BARBOUR,Juan Quinteros Attending MD Review Statement Documenting Attending: Manny Chan MD Other Findings: The patient was seen and discussed with house staff. Agree with plan of care upon discharge. The patient understands risk of CVA and agrees to Coumadin therapy. INR to be followed by Dr. Aponte. She will have close OP follow-up. She has chronic hypoxic respiratory failure and is on chronic oxygen at home ( currently at baseline).
--- NOTE | 2017-09-19 11:51 | PN- Housestaff ---
See Addendum Subjective Follow-up For: Margaret duffy with RVR CHF/CKD volume overload Left Foot swelling, collection Tele-Events Since Last Visit: off tele Subjective: Patient visited today, pleasant old lady was lying in bed comfortably in no acute distress, was alert and oriented. Reported relative increased in swelling, as diuretics were hold for the last several days and we restarted 40 mg Lasix since yesterday. No fever or chills, no chest pain, no other events. Patient was stable to be discharge. Warfarin dosing will continue with recommendation to follow in outpatient with roller picker. Patient was also instructed to follow with commission broker for suture removal and continuation of the care. Review of Systems Constitutional: Reports: see HPI. Objective Last 24 Hrs of Vital Signs/I&O Vital Signs Date Time Temp Pulse Resp B/P B/P Pulse O2 O2 Flow FiO2 Mean Ox Delivery Rate 09/19 1149 95 Room Air 09/19 0819 104 112/70 09/19 0800 Nasal 2.0L Cannula 09/19 0713 98.2 104 16 112/70 98 Nasal 2.0L Cannula 09/19 0000 95 Nasal 2.0L Cannula 09/18 2223 98.1 109 16 128/64 96 Nasal 2.0L Cannula 09/18 2215 126/80 Intake & Output 09/19 1600 09/19 0800 09/19 0000 Intake Total 634.8 Output Total 250 Balance 384.8 Intake, IV 314.8 Intake, Oral 320 Output, Urine 250 Physical Exam General Appearance: Alert, Oriented X3, Cooperative, No Acute Distress Skin: bilateral lower extremity skin changes, erythema Skin Temp/Moisture Exam: Warm/Dry Sepsis Skin Exam (color): Normal for Ethnicity HEENT: Atraumatic, EOMI, Mucous Membr. moist/pink Cardiovascular: Normal S1, Normal S2, irregular, rate controlled not tachycardic Lungs: Clear to Auscultation Abdomen: Soft, No Tenderness Neurological: Normal Speech Extremities: +2-+1 bilateral edema, left leg dressing in place Current Medications: Current Medications Sig/Cole Start time Last Medication Dose Route Stop Time Status Admin Acetaminophen 650 MG .STK-MED ONE 09/18 1919 DC PO 09/18 1920 Acetaminophen 650 MG Q6P PRN 09/09 1730 AC 09/18 PO 1920 Atorvastatin Calcium 40 MG 1700 09/10 1700 AC 09/18 PO 1553 Calcitriol 0.25 MCG DAILY 09/10 1000 AC 09/19 PO 0819 Diltiazem HCl 240 MG DAILY 09/18 1000 AC 09/19 PO 0819 Febuxostat 40 MG DAILY 09/09 1745 AC 09/19 PO 0819 Ferrous Sulfate 325 MG TID 09/09 2200 AC 09/19 PO 0819 Furosemide 40 MG DAILY 09/18 1145 AC 09/19 PO 0819 Heparin Sodium 25,000 UNIT Q24H 09/15 1500 AC 09/19 (Porcine) IV 0235 Sodium Chloride 500 ML Insulin Aspart 0 TIDAC 09/15 1700 AC 09/19 SC 1210 Lactobacillus 1 CAP DAILY 09/14 1000 AC 09/19 Acidophilus PO 0819 Metoprolol Tartrate 37.5 MG BID 09/15 220 AC 09/19 PO 0819 Ondansetron HCl 4 MG Q6P PRN 09/13 1515 AC 09/13 IV 2057 Sevelamer Carbonate 1,600 MG WM 09/09 1700 AC 09/19 PO 1210 Sodium Bicarbonate 1,300 MG BID 09/09 2200 AC 09/19 PO 0819 Warfarin Sodium 6 MG COUMADIN 1700 ONE 09/18 1700 DC 09/18 PO 09/18 1701 1552 Last 24 Hrs of Lab/Rayshawn Results Last 24 Hrs of Labs/Mics: Laboratory Tests 09/19/17 0656: Anion Gap 14, Estimated GFR 13 L, BUN/Creatinine Ratio 29.1 H, PT 26.6 H, INR 2.56 H, APTT 104 *H, CBC w Diff NO MAN DIFF REQ, RBC 3.27 L, MCV 83.6, MCH 27.7, MCHC 33.2, RDW 16.3 H, MPV 9.8, Gran % 62.6, Lymphocytes % 19.8 L, Monocytes % 10.3 H, Eosinophils % 6.3 H, Basophils % 1.0, Absolute Granulocytes 6.8 H, Absolute Lymphocytes 2.2, Absolute Monocytes 1.1 H, Absolute Eosinophils 0.7, Absolute Basophils 0.1 09/18/171917: APTT 74 H Assessment/Plan Assessment: 72-year-old lady with past medical history of A. fib on warfarin Cardizem and metoprolol, CKD, moderate to severe pulmonary hypertension discharge 7 days ago from hospital with diagnosis of A. fib and back to the hospital with chief complaint of shortness of breath. Doppler of the legs was done to rule out DVT CXR : Cardiopulmonary with pulmonary venous congestion and interstitial edema, similar to prior. Increased size of the small to moderate right pleural effusion. Trace left effusion. Patient was admitted to telemetry floor for management of following conditions: aFib with RVR with sub-therapeutic INR Heart rate was controlled. Patient was initially on Cardizem 60 q6 and metoprolol 25, planned increase metoprolol to 37.5 BID and changed Cardizem to long-acting later. INR was sub-therapeutic INR at the time of admission, Coumadin dosing was adjusted during admission. Omar-vasc score 5. Had discussion with patient and attending regarding continuation of anticoagulation due to high Omar-vasc score suggesting high chances of complications (Stroke risk 7.2% per year and 10.0% risk of stroke/TIA/systemic embolism). decided to continue anticoagulation and instruct patient to be more carefull of fall/physical trauma. INR was subtherapeutic at admission and we increased the dose Coumadin to 6 with recommendation to follow in outpatient. Left foot swelling patient had increased swelling of left foot. US of the left foot was done: 1. Diffuse cutaneous and soft tissue edema and thickening is seen in the dorsum of the foot underlying the patient's erythema, suspicious for cellulitis. 2. Focal superficial irregular complex fluid collection is seen in the dorsum of the forefoot. This may represent a hematoma or a infected fluid collection/abscess. Clinical correlation is requested. patient underwent two step I&D and then sunsequent closure (09/15/17). Blood cultures negative. Recieved IV cefazolin Q12 (adjusted dose per nephro), total 10 days. Patient was instructed to follow with commission broker after discharge. CKD with volume overload Patient was CKD baseline with Cr between 3-4. Patient was initially treated with IV lasix which was changed to home dose of Toresomide on 09/14/17. With increased Cr diuretics were held and then was changed to by mouth Lasix 40 mg.We continued sevelamer calcium bicarbonate. History of hypertension, gout, anemia -We discontinued hydralazine considering other medication for heart rate control. We also continued Uloric iron supplementation Full code DVT prophylaxis : mechanical and IV heparin, warfarin Diet: diabetic diet / low K and NA and fluid restriction Patient was discharged with recommendations below: Please follow with your PCP within one week of discharge. Please follow with your roller picker within 1 week of discharge with laboratory tests ordered. Please follow with your commission broker within 1 week of discharge for sutur removal. Please monitor your INR and adjust your Coumadin based on cardiology's recommendation. Please come back to hospital if symptoms worsen. Problem List: 1. Diabetes mellitus 2. Leg swelling 3. Afib Pain Ratin Pain Location: None Pain Goal: Pain 4 or less Pain Plan: Coninue current plan Tomorrow's Labs & Rationales: None
--- NOTE | 2017-09-19 11:59 | Patient Discharge Instructions ---
Discharge Instructions General Discharge Information You were seen/treated for: A. fib Leg swelling Left foot trauma You had these procedures: Incision and drainage of the left foot Watch for these problems: Severe chest pain, palpitation, heart racing, dizziness, severe swelling of the legs, dizziness, weakness, change in sensory function or worsening of any other symptoms. Special Instructions: Please follow with your PCP within one week of discharge. Please follow with your pouch maker within 1 week of discharge with laboratory tests ordered. Please follow with your film waxer within 1 week of discharge for sutur removal. Please monitor your INR and adjust your Coumadin based on cardiology's recommendation. Please come back to hospital if symptoms worsen. Diet Continue normal diet: No Recommended Diet: Diabetic, 1000 mL fluid 2 g sodium 2 g potassium Limit DAILY fluid amt to mls: 1000 Activity Full Activity/No Limits: No Activity Self Limited: Yes Acute Coronary Syndrome Inclusion Criteria At DC or during hospital stay patient has or had the following: ACS DIAGNOSIS No Discharge Core Measures Meds if any: Prescribed or Continued at Discharge Meds if any: NOT Prescribed or Continued at Discharge Congestive Heart Failure Inclusion Criteria At DC or during hospital stay patient has or had the following: CHF DIAGNOSIS No Discharge Core Measures Meds if any: Prescribed or Continued at Discharge Meds if any: NOT Prescribed or Continued at Discharge Cerebrovascular accident Inclusion Criteria At DC or during hospital stay patient has or had the following: CVA/TIA Diagnosis No Discharge Core Measures Meds if any: Prescribed or Continued at Discharge Meds if any: NOT Prescribed or Continued at Discharge Venous thromboembolism Inclusion Criteria VTE Diagnosis No VTE Type NONE VTE Confirmed by (Test) NONE Discharge Core Measures - Per Current guidelines, there needs to be overlap - treatment for the first 5 days of Warfarin therapy. - If discharged on Warfarin prior to 5 days of - overlap therapy, the patient will need to be - assessed for post discharge needs including - *Post discharge parental anticoagulation - *Warfarin and/or parental anticoagulation education - *Follow up date to check INR post discharge At least 5 days overlap therapy as Inpatient No Meds if any: Prescribed or Continued at Discharge Note: Overlap Therapy is Warfarin and Anticoagulant Meds if any: NOT Prescribed or Continued at Discharge
[2017-09-19] MEDS ORDERED: FIASP 100100 UNIT/1 SC ×3 (14:06→16:01)
[2017-09-19] MEDS ORDERED: COUMADIN1 M1 PO ×2 (14:44→14:58)
[2017-09-19] MEDS ORDERED: COUMADIN5 M2 PO (18:48)
== END 2017-09-19 16:00 | disposition home health service (06) | DRG 264 ==
LOC: ERH 12:00 → ERHI 15:02 → 1NO 15:02 → ENRESERV 16:41 → ENTRNSPT 18:53 → EDTRNSPTSTS 18:54 → CMPTRNSPT 19:13 → 1NO 19:28 → ENTRNSPT 09-15 12:20 → EDTRNSPTSTS 09-15 12:28 → EDTRNSPT 09-15 12:28 → CMPTRNSPT 09-15 13:00 → 1NO 09-15 13:54 → ENTRNSPT 09-19 15:38 → EDTRNSPTSTS 09-19 15:47 → EDTRNSPT 09-19 15:47 → CMPTRNSPT 09-19 15:56 → 1NO 09-19 16:00
PROVIDERS: Hospitalist; Internal Medicine; Physician Assistant; Radiology Vascular & Interventional Radiology; Student in an Organized Health Care Education/Training Program
PROC: 0JBR0ZZ Excision of Left Foot Subcutaneous Tissue and Fascia, Open Approach (ICD-10-PCS; principal; 2017-09-13)
PROC: 0J9R0ZX Drainage of Left Foot Subcutaneous Tissue and Fascia, Open Approach, Diagnostic (ICD-10-PCS; 2017-09-13)
PROC: 0JBR0ZZ Excision of Left Foot Subcutaneous Tissue and Fascia, Open Approach (ICD-10-PCS; 2017-09-15)
PROC: 0HXNXZZ Transfer Left Foot Skin, External Approach (ICD-10-PCS; 2017-09-15)
DX: I13.2 Hypertensive heart and chronic kidney disease with heart failure and with stage 5 chronic kidney disease, or end stage renal disease (principal); I27.20 Pulmonary hypertension, unspecified; E11.21 Type 2 diabetes mellitus with diabetic nephropathy; L03.116 Cellulitis of left lower limb; I48.0 Paroxysmal atrial fibrillation; I50.33 Acute on chronic diastolic (congestive) heart failure; N18.5 Chronic kidney disease, stage 5; L02.612 Cutaneous abscess of left foot; E11.22 Type 2 diabetes mellitus with diabetic chronic kidney disease; Z79.01 Long term (current) use of anticoagulants; Z79.84 Long term (current) use of oral hypoglycemic drugs; M10.9 Gout, unspecified; D64.9 Anemia, unspecified; R79.1 Abnormal coagulation profile; Z82.49 Family history of ischemic heart disease and other diseases of the circulatory system; Z48.1 Encounter for planned postprocedural wound closure
CPT/HCPCS: 1NSP; 36415; 71045; 76881; 82436; 87040; 87804; 87804-59; 93005; 93010; 93970; 96374; 96376; 99291; J0131; J0690; J1644; J1815; J1885; J1940; J2001; J2405; J7042

== ENCOUNTER 2017-10-04 11:11 | Inpatient (IN) | payer OTHER, MEDICARE ==
[~2017-10-04] VITALS: Ht 175.3 cm; Wt 102.7 kg
[~2017-10-04 11:11] MED LIST changes: +CARDIZEM CD240 M1 PO; +COUMADIN1 M1 PO; +COUMADIN6 M1 PO; +FIASP 100100 UNIT/1 SC; +LASIX40 M1 PO
[2017-10-04 11:59] LABS: PT 12.2 SEC (9.4-12.5); PTT 31 SEC (25-37)
[2017-10-04 12:00] LABS: ABSOLUTE BASOPHIL COUNT 0.1 /CUMM (0.0-0.2); ABSOLUTE EOSINOPHIL COUNT 0.3 /CUMM (0.0-0.7); ABSOLUTE GRANULOCYTE CT 6.8 /CUMM (1.4-6.5); ABSOLUTE MONOCYTE COUNT 0.6 /CUMM (0.10-0.60); EOSINOPHIL % 3.6 % (0-5); GRANULOCYTE % 77.1 % (42.2-75.2); MEAN CORPUSCULAR HGB 27.8 PG (27.0-31.0); MEAN CORPUSCULAR HGB CONC 32.7 G/DL (33.0-37.0); MEAN CORPUSCULAR VOLUME 85.1 FL (81.0-99.0); MEAN PLATELET VOLUME 8.3 FL (7.4-10.4); PLATELET COUNT 193 /CUMM (130-400); RBC DISTRIBUTION WIDTH 16.8 % (11.5-14.5); RED BLOOD CELL CT 4.12 /CUMM (4.20-5.40); WHITE BLOOD CELL COUNT 8.8 /CUMM (4.8-10.8)
--- NOTE | 2017-10-04 12:30 | ED DYSPNEA/ASTHMA COMPLAINT ---
History of Present Illness General Chief Complaint: General Adult Stated Complaint: INCREASED SOB Source: patient, family, old records Exam Limitations: no limitations Vital Signs & Intake/Output Vital Signs & Intake/Output Vital Signs Date Time Temp Pulse Resp B/P B/P Pulse O2 O2 Flow FiO2 Mean Ox Delivery Rate 10/04 1259 110 18 173/83 98 Nasal 2.5L Cannula 10/04 1256 98 Nasal 2.5L Cannula 10/04 1133 98.9 69 18 161/95 95 Nasal 2.5L Cannula Allergies Coded Allergies: sitagliptin (From [employer]) (Severe, THROAT CLOSURE 02/05/17) Reconcile Medications Calcitriol 0.25 MCG CAPSULE 1 CAP PO DAILY SUPPLEMENT (Reported) Diltiazem HCl (Cardizem Cd) 240 MG CAP.ER.24H 240 MG PO DAILY HEART HEALTH . Febuxostat (Uloric) 40 MG TABLET 1 TAB PO DAILY GOUT (Reported) Ferrous Sulfate 325 MG (65 MG IRON) TABLET 1 TAB PO TID Iron storage . Furosemide (Lasix) 40 MG TABLET 40 MG PO DAILY Leg swelling . Insulin Aspart (Niacinamide) (Fiasp 100 Unit/Ml Flextouch) 100 UNIT/ML (3 ML) INSULN.PEN 0 SC TIDAC blood sugar .Please administer as follow: Metoprolol Tartrate 25 MG TABLET 37.5 MG PO BID HEART HEALTH . Rosuvastatin Calcium (Crestor) 10 MG TABLET 1 TAB PO DAILY HYPERLIPIDEMIA Sevelamer Carbonate (Renvela) 800 MG TABLET 2 TAB PO WM CKD Sodium Bicarbonate 325 MG TABLET 1,300 MG PO BID KIDNEY HEALTH . Warfarin Sodium (Coumadin) 5 MG TABLET 1 TAB PO DAILY BLOOD THINNER .. Triage Note: PT TO ED FOR PROGRESSIVELY WORSENING SOB OVER THE PAST SEVERAL WEEKS, RECENTLY ADMITTED FOR AFIB AND SENT HOME ON HOME 02, PT UNSURE WHY SHE WAS PLACED ON 02 AT HOME. REPORTING WORSENING SOB ON AMBULATION, ON 2.5LPM AT BASELINE, 02 SAT 94%, DENIES CP, DIZZINESS. Triage Nurses Notes Reviewed? yes HPI: Patient was recently admitted to the hospital for new onset A. fib with RVR. Since discharge patient has been having increasing difficulty breathing with dyspnea on exertion. Patient was due to go to the wound center today but she had to stop every 10 feet to catch her breath. Patient states that over the summer she was on turosemide 80 mg a day and she lost 70 pounds while at short- term rehabilitation and was breathing much better. Patient states that she has chronic renal insufficiency and she is now on Lasix 40 mg and she is having difficulty breathing. Positive orthopnea. Patient denies any chest pain or palpitations. Patient states that she has never been on oxygen before but she required oxygen upon leaving the hospital. Past History Travel History Traveled to [place] past 21 day No Medical History Any Pertinent Medical History? see below for history Neurological: NONE EENT: NONE Cardiovascular: AFIB (refuses/ not started on antico), aflutter, hypertension Respiratory: NONE Gastrointestinal: NONE Hepatic: NONE Renal: CKD biopsy-proven diabetic/hypertensive nephropathy R.ARM AVF Musculoskeletal: gout Psychiatric: NONE Endocrine: diabetes, she reports that her diabetes has been referred for roughly 10 years. She denies any retinopathy. 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 No Review of Systems Review of Systems Constitutional: Reports: no symptoms. EENTM: Reports: no symptoms. Respiratory: Reports: see HPI, orthopnea, short of breath. Cardiovascular: Reports: no symptoms. GI: Reports: no symptoms. Genitourinary: Reports: no symptoms. Musculoskeletal: Reports: no symptoms. Skin: Reports: no symptoms. Neurological/Psychological: Reports: no symptoms. Hematologic/Endocrine: Reports: no symptoms. Immunologic/Allergic: Reports: no symptoms. All Other Systems: Reviewed and Negative Physical Exam Physical Exam General Appearance: well developed/nourished, alert, awake, anxious, moderate distress Head: atraumatic, normal appearance Eyes: Bilateral: PERRL, EOMI. Ears, Nose, Throat: normal pharynx, normal ENT inspection, hearing grossly normal Neck: normal inspection, supple, full range of motion, JVD Respiratory: chest non-tender, rales (BIBASILAR), [employer] Cardiovascular: normal peripheral pulses, irregularly irregular Gastrointestinal: normal bowel sounds, soft Extremities: pedal edema, swelling Neurologic/Psych: no motor/sensory deficits, awake, alert, oriented x 3, normal mood/affect Skin: intact, normal color, warm/dry Lymphatic: no anterior cervical johana Core Measures ACS in differential dx? No CVA/TIA Diagnosis No Sepsis Present: No Sepsis Focused Exam Completed? No Progress Differential Diagnosis: CHF, COPD, pulmonary embolism, pneumonia Plan of Care: Orders Procedure Date/time Status Heart Healthy Diet 10/[address] in observation 10/04 151 Active ED Holding Orders 10/04 1512 Active Vital Signs 10/04 1512 Active Code Status 10/04 151 Active CASE MANAGEMENT CONSULT 10/04 1411 Active B-TYPE NATRIURETIC PEP (BNP) 10/04 1140 Complete Telemetry/Burr Bench Hand 10/04 1116 Active TROPONIN LEVEL 10/04 1116 Complete PARTIAL THROMBOPLASTIN TIME 10/04 1116 Complete PROTHROMBIN TIME 10/04 1116 Complete MAGNESIUM 10/04 1116 Complete COMPREHENSIVE METABOLIC PANEL 10/04 1116 Complete CBC WITHOUT DIFFERENTIAL 10/04 1116 Complete EKG 10/04 1113 Active Laboratory Tests 10/04/17 1140: Anion Gap 14, Estimated GFR 14 L, BUN/Creatinine Ratio 19.1, Glucose 159 H, Calcium 9.8, Magnesium 2.1, Total Bilirubin 1.0, AST 15, ALT 6 L, Alkaline Phosphatase 233 H, Troponin I < 0.01, Xfk-I-Rrrhbjncqlc Pept 81764 H, Total Protein 6.4, Albumin 3.6, Globulin 2.8, Albumin/Globulin Ratio 1.3, PT 12.2, INR 1.16, APTT 31, CBC w Diff NO MAN DIFF REQ, RBC 4.12 L, MCV 85.1, MCH 27.8, MCHC 32.7 L, RDW 16.8 H, MPV 8.3, Gran % 77.1 H, Lymphocytes % 11.7 L, Monocytes % 6.6, Eosinophils % 3.6, Basophils % 1.0, Absolute Granulocytes 6.8 H, Absolute Lymphocytes 1.0 L, Absolute Monocytes 0.6, Absolute Eosinophils 0.3, Absolute Basophils 0.1 10/04/17 1128: Zbs-E-Jdzgayiyurr Pept Cancelled Diagnostic Imaging: Viewed by Me: Radiology Read. Discussed w/RAD: Radiology Read. CXR Impression: PATIENT: GILL CUETO PRESENT AGE: 72 PATIENT ACCOUNT NO: [id number] : 47 LOCATION: [facility] ORDERING PHYSICIAN: Billy JARAMILLO SERVICE DATE: 10/04/17 EXAM TYPE: RAD - XRY-PORTABLE CHEST XRAY EXAMINATION: XR PORTABLE CHEST CLINICAL INFORMATION: Dyspnea COMPARISON: August 25, 2017, August 23, 2017, and February 05, 2017. TECHNIQUE: Portable AP view of the chest was obtained. FINDINGS: The cardiopericardial silhouette is enlarged. There is prominence of pulmonary vasculature but without definite overt pulmonary edema seen. Patient has developed some right base density with the appearance of pleural effusion. Bibasilar atelectasis is present with retrocardiac density being seen as well. No pneumothorax. IMPRESSION: Pulmonary vascular congestion with development of right pleural effusion. Bibasilar atelectasis. DICTATED BY: Kodi He MD DATE/TIME DICTATED:10/04/171319 RENTAL COORDINATOR:HANNAH DATE/TIME TRANSCRIBED:1319 CONFIDENTIAL, DO NOT COPY WITHOUT APPROPRIATE AUTHORIZATION. < Electronically signed in Other Vendor System> SIGNED BY: Kodi He MD 10/04/171327 Initial ED EKG: AFIB, nonspecific ST T wave chg Prior EKG: unchanged Departure Departure Disposition: STILL A PATIENT Condition: Fair Clinical Impression Primary Impression: Pulmonary edema Referrals: Cesia Sigala MD (PCP/Family) Departure Forms: Customer Survey General Discharge Information Observation Note Spoke With: Katarina BARBOUR,Akira Physician Advisor Notified: SUNIL BARBOUR,BEN Cint[facility] Place Patient In: Non-ED OBS Care Area Rationale for Observation: My rational for observation is as follows [TELE OBS, SERIAL ENZYMES, IV DUIRESIS , CARDIOLOGY EVALUATION, O2]. Critical Care Note Critical Care Note Critical Care Time: non-applicable
--- NOTE | 2017-10-04 13:28 | RADIOLOGY REPORT ---
EXAMINATION: XR PORTABLE CHEST CLINICAL INFORMATION: Dyspnea COMPARISON: August 25, 2017, August 23, 2017, and February 05, 2017. TECHNIQUE: Portable AP view of the chest was obtained. FINDINGS: The cardiopericardial silhouette is enlarged. There is prominence of pulmonary vasculature but without definite overt pulmonary edema seen. Patient has developed some right base density with the appearance of pleural effusion. Bibasilar atelectasis is present with retrocardiac density being seen as well. No pneumothorax. IMPRESSION: Pulmonary vascular congestion with development of right pleural effusion. Bibasilar atelectasis.
--- NOTE | 2017-10-04 15:26 | History & Physical ---
Lorelei BARBOUR,[facility] 10/04/17 1525: General Information and HPI MD Statement: I have seen and personally examined GILL CUETO and documented this H&P. The patient is a 72 year old F who presented with a patient stated chief complaint of [SOB]. Source of Information: patient Exam Limitations: no limitations History of Present Illness: Patient is a 72-year-old female with past medical history significant for paroxysmal atrial fibrillation status post cardioversion 2 on coumadin, diabetes not on any medications currently, diabetic and hypertensive nephropathy confirmed by biopsy, hypertension, hyperlipidemia, right external carotid artery stenosis, secondary hyper parathyroidism, gout presents with worsening Shortness of breath for the past 1 week. According to the patient, Dr. Alvarado did some procedure on her right foot and before the procedure she was given IV fluids which made her edema worse and she started feeling more short of breath. She was discharged from [facility] on 2.5 L oxygen but she fel short of breath even with supplemental oxygen. Denies any chest pain, palpitations, PND, fever, chills or productive cough. Patient states states she was on furosemide 80 mg daily in 2016([facility]) that time lost almost 70 pounds, was switched to furosemide later and she feels like she has recently gained more weight. Allergies/Medications Allergies: Coded Allergies: sitagliptin (From [employer]) (Severe, THROAT CLOSURE 02/05/17) Home Med list Calcitriol 0.25 MCG CAPSULE 1 CAP PO DAILY SUPPLEMENT (Reported) Diltiazem HCl (Cardizem Cd) 240 MG CAP.ER.24H 240 MG PO DAILY HEART HEALTH . Febuxostat (Uloric) 40 MG TABLET 1 TAB PO DAILY GOUT (Reported) Ferrous Sulfate 325 MG (65 MG IRON) TABLET 1 TAB PO TID Iron storage . Furosemide (Lasix) 40 MG TABLET 40 MG PO DAILY Leg swelling . Insulin Aspart (Niacinamide) (Fiasp 100 Unit/Ml Flextouch) 100 UNIT/ML (3 ML) INSULN.PEN 0 SC TIDAC blood sugar .Please administer as follow: Metoprolol Tartrate 25 MG TABLET 37.5 MG PO BID HEART HEALTH . Rosuvastatin Calcium (Crestor) 10 MG TABLET 1 TAB PO DAILY HYPERLIPIDEMIA Sevelamer Carbonate (Renvela) 800 MG TABLET 2 TAB PO WM CKD Sodium Bicarbonate 325 MG TABLET 1,300 MG PO BID KIDNEY HEALTH . Warfarin Sodium (Coumadin) 5 MG TABLET 1 TAB PO DAILY BLOOD THINNER .. Past History Travel History Traveled to [place] past 21 day No Medical History Neurological: NONE EENT: NONE Cardiovascular: AFIB (refuses/ not started on antico), aflutter, hypertension Respiratory: NONE Gastrointestinal: NONE Hepatic: NONE Renal: CKD biopsy-proven diabetic/hypertensive nephropathy R.ARM AVF Musculoskeletal: gout Psychiatric: NONE Endocrine: diabetes, she reports that her diabetes has been referred for roughly 10 years. She denies any retinopathy. 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 EENTM: Reports: no symptoms. Respiratory: Reports: orthopnea, short of breath. GI: Reports: no symptoms. Genitourinary: Reports: no symptoms. Musculoskeletal: Reports: no symptoms. Skin: Reports: no symptoms. Neurological/Psychological: Reports: no symptoms. Hematologic/Endocrine: Reports: no symptoms. Immunologic/Allergic: Reports: no symptoms. All Other Systems: Reviewed and Negative Exam & Diagnostic Data Last 24 Hrs of Vital Signs/I&O Vital Signs Date Time Temp Pulse Resp B/P B/P Pulse O2 O2 Flow FiO2 Mean Ox Delivery Rate 10/04 2150 Nasal 2.0L Cannula 10/04 2129 97.3 78 14 142/88 98 Nasal Cannula 10/04 2129 98 Nasal 2.0L Cannula 10/04 2050 98.9 108 16 158/82 98 Nasal 3.0L Cannula 10/04 1828 98.4 101 16 161/87 96 Nasal 3.0L Cannula 10/04 1642 97.8 87 18 168/90 100 Room Air 10/04 1259 110 18 173/83 98 Nasal 2.5L Cannula 10/04 1256 98 Nasal 2.5L Cannula 10/04 1133 98.9 69 18 161/95 95 Nasal 2.5L Cannula Intake & Output 10/04 1600 10/04 0800 10/04 0000 Intake Total 0 Output Total 200 Balance -200 Intake, Oral 0 Output, Urine 200 Patient 200 lb Weight Weight Reported by Patient Measurement Method Physical Exam General Appearance Alert, Oriented X3, Cooperative Skin No Rashes, No Breakdown HEENT Atraumatic, PERRLA, EOMI, Mucous Membr. moist/pink Neck Supple, No JVD, No thryomegaly Cardiovascular Normal S1, Normal S2, Irregular Lungs Normal Air Movement, mild bibasilar crackles Abdomen Normal Bowel Sounds, Soft, No Tenderness Extremities No Clubbing, No Cyanosis, +1 pitting edema, open wopund with bandage on the dorsum of right foot. Last 24 Hrs of Labs/Rayshawn: Laboratory Tests 10/04/17 1815: Troponin I 0.02 10/04/17 1140: Anion Gap 14, Estimated GFR 14 L, BUN/Creatinine Ratio 19.1, Glucose 159 H, Calcium 9.8, Magnesium 2.1, Total Bilirubin 1.0, AST 15, ALT 6 L, Alkaline Phosphatase 233 H, Troponin I < 0.01, Xtx-[id number] Pept 88388 H, Total Protein 6.4, Albumin 3.6, Globulin 2.8, Albumin/Globulin Ratio 1.3, PT 12.2, INR 1.16, APTT 31, CBC w Diff NO MAN DIFF REQ, RBC 4.12 L, MCV 85.1, MCH 27.8, MCHC 32.7 L, RDW 16.8 H, MPV 8.3, Gran % 77.1 H, Lymphocytes % 11.7 L, Monocytes % 6.6, Eosinophils % 3.6, Basophils % 1.0, Absolute Granulocytes 6.8 H, Absolute Lymphocytes 1.0 L, Absolute Monocytes 0.6, Absolute Eosinophils 0.3, Absolute Basophils 0.1 10/04/17 1128: Iak-N-Jmxxcqoasok Pept Cancelled Microbiology 10/04 2154 NASOPHARYN: Influenza Virus A & B Rapid Smear - COMP Diagnostic Data CXR Results IMPRESSION: Pulmonary vascular congestion with development of right pleural effusion. Bibasilar atelectasis. Assessment/Plan Assessment: Patient is a 72-year-old female with past medical history significant for paroxysmal atrial fibrillation status post cardioversion 2 on coumadin, diabetes not on any medications currently, diabetic and hypertensive nephropathy confirmed by biopsy, hypertension, hyperlipidemia, right external carotid artery stenosis, secondary hyper parathyroidism, gout presents with worsening Shortness of breath for the past 1 week. A/P 1. Shortness of breath; likely 2/2 CHF given peripheral [place], [place] [address] and CXR showing pulmonary venous congestion. - Observe the pt on telemetry floor from 24-48 hours. - Start the patient on IV lasix 40mg BID. - Strict intake and output charting - Daily weights - Repeat CXR in am. - Trop and EKG x 3 to r/o ACS. - Supplemental O2 as needed to keep O2 sats above 90%. - Appreciate cardiology recommendations. - No need for repeat echo, recent echo in Aug 2017 showed an EF of 60% with no regional wall motion abnormalities. 2. Chronic medical conditions. - Continue home medications. - Daily INR amd dose coumadin accordingly. DVT Prophylaxis; On coumadin Patient is full code. As Ranked By This Provider Problem List: 1. Leg swelling 2. Dyspnea 3. Afib Core Measures/Misc (04/30) Acute Coronary Syndrome ACS Diagnosis: No Congestive Heart Failure Congestive Heart Failure Diagnosis Yes Cerebrovascular Accident CVA/TIA Diagnosis: No VTE (View Protocol) VTE Risk Factors Age>40 No Mechanical VTE Prophylaxis d/t N/A MechProphylax Ordered No VTE Pharm Prophylaxis d/t NA PharmProphylax ordered Sepsis (View protocol) Sepsis Present: No [facility] 10[facility]04[facility]172110: Resident Review Statement Resident Statement: examined this patient, discussed with consultant internship, agreed with consultant internship Other Findings: Patient is a 72-year-old woman with a past medical history of atrial fibrillation on Coumadin, Cardizem and metoprolol, diastolic heart failure, chronic hypoxemic respiratory failure on home oxygen, diabetes, CK D, and moderate to severe pulmonary hypertension, right external carotid artery stenosis and secondary hyperparathyroidism. She was recently admitted in [facility] in August for acute kidney injury on CK D and atrial fibrillation with rapid ventricular rate. She presents with worsening shortness of breath at rest and on exertion for the past 2 weeks. She was due to go to the wound Center for dressing of her left foot wound with a severely short of breath after taking just a few steps. She also has noted worsening pedal edema despite following her diet regimen and regularly taking her by mouth Lasix 40 mg daily home medication. Of note patient was 233 pounds on her by second and is now 247 pounds. She denies palpitations, chest pain, lightheadedness diaphoresis. She denies cough, fevers , chills. Vital signs in the ER showed temperature of 98.9F, pulse 69, respiratory 18, blood pressure 161/95 mmHg, pulse oximetry 95% on 2.5 L of oxygen by nasal cannula. Physical exam showed General Appearance: Elderly woman, obese, alert, oriented 3, moderate distress Head: atraumatic, normal appearance HEENT:PERRL, EOMI, normal pharynx, hearing grossly normal Neck: Normal inspection, no discernible JVD Respiratory: Bilateral lung bases with fine crepitations, no wheeze Cardiovascular: Irregularly irregular rate/rhythm, S1/S2 normal with no murmurs Gastrointestinal: Obese, normal bowel sounds, soft, non-tender, no organomegaly Neurologic/Psych: Cranial nerves 2-12 normal, no motor/sensory deficits Extremities: Bilateral +4 pitting pitting edema pedal edema. Ulcer covered with dressing present on left dorsum of foot Skin: intact, normal color, warm/dry Significant labs: Sodium 146, potassium 4.2, CO2 26, glucose 159, creatinine 3.2 , ALP 233, troponin <0.01, proBNP 88790. INR is subtherapeutic at 1.16 (patient did state that she does not take these regularly) CBC: WBC 8.8, hemoglobin 11.5, hematocrit 35.5%, platelet 193. Chest x-ray showed pulmonary vascular congestion with right pleural effusion and bibasilar atelectasis. Patient had received IV Lasix 80 mg in the ER. Assessment 1. Hypoxemic respiratory failure secondary to CHF 2. Diastolic CHF 3. Paroxysmal Atrial fibrillation on Coumadinnoncompliant 4. Hypertension 5. Chronic kidney disease 6. History of Gout 7. Diabetes mellitus 8. Chronic anemia 9. Left leg ulcer on dorsum of foot Plan -Place in observation -Telemetry monitoring -Oxygen by nasal cannula and to keep O2 sats greater than 92% -TR evolution -Cardiology consultation input appreciated -Continue diuresis with IV Lasix 40 mg twice a day from tomorrow morning morning as Patient received 80 mg IV once today -Strict input and output charting -Daily weights -Serial EKGs and troponins -Patient's echocardiogram from August 2017 showed EF of 60%. No need to repeat at this time -Repeat chest x-ray in the morning to assess interval improvement -Accu-Cheks 3 times a day before meals and NovoLog sliding scale 3 times a day before meals for diabetes -Continue medications for rate control of atrial fibrillation with by mouth metoprolol and Cardizem, -Dose Coumadin 5 mg today and check INR tomorrow morning -Continue medications for gout with uloric, continue sodium bicarbonate for CK D and iron sulfate for anemia. -DVT prophylaxis with Alps and by mouth Coumadin -Patient is full code -Please inform ship painter helper Dr. 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 Upon evaluation in ED she was afebrile but found to be tachycardiac. Her blood pressure was also elevated to 173/83. She required up to the 3 L of oxygen by nasal cannula. Chest exam showed a decrease in anticipation the right side. Bilateral lower extend edema was noted. Her WBC count was within normal range. Creatinine appears to be close to baseline at 3.2. Sodium level was slightly elevated 146. Chest x-ray showed vascular congestion with right pleural effusion. Impression Congestive heart failure Right-sided pleural effusion History of proximate fibrillation-currently noncompliant with Coumadin Plan Cardiac consult Admit to telemetry Daily weights input output low salt diet Lasix 40 mg IV twice a day
--- NOTE | 2017-10-04 16:10 | Cons- Cardiology ---
Fadi BARBOUR,Terrence Gonzáles 10/04/17 1554: General Information and HPI Consulting Request Date of Consult: 10/04/17 Requested By: Katarina BARBOUR,[facility] Reason for Consult: Shortness of breath. Source of Information: patient, old records Exam Limitations: poor historian History of Present Illness: Ms. Leslie Yao is a 72-year-old female with a history of gout, HLD, HTN, DM, CKD s/p RUE AV fistula 06/2016 w/o use necessity, ch anemia on RITO , & PAF s/p electrical CV following a CARI ~2015 w/ recurrence and successful antiarrhythmic Rx w/ chemical CV ~2016 who was recently hospitalized here (09/09 -09/19/2017) for AF w/ RVR and who gradually improved w/ standard therapy, but who became progressively SOB w/ wt gain at home over the past few weeks despite compliance w/ her diet & medical regimen and who was found to be in AF w/ RVR & HFpEF. Allergies/Medications Allergies: Coded Allergies: sitagliptin (From [employer]) (Severe, THROAT CLOSURE 02/05/17) Home Med List: Calcitriol 0.25 MCG CAPSULE 1 CAP PO DAILY SUPPLEMENT (Reported) Diltiazem HCl (Cardizem Cd) 240 MG CAP.ER.24H 240 MG PO DAILY HEART HEALTH . Febuxostat (Uloric) 40 MG TABLET 1 TAB PO DAILY GOUT (Reported) Ferrous Sulfate 325 MG (65 MG IRON) TABLET 1 TAB PO TID Iron storage . Furosemide (Lasix) 40 MG TABLET 40 MG PO DAILY Leg swelling . Insulin Aspart (Niacinamide) (Fiasp 100 Unit/Ml Flextouch) 100 UNIT/ML (3 ML) INSULN.PEN 0 SC TIDAC blood sugar .Please administer as follow: Metoprolol Tartrate 25 MG TABLET 37.5 MG PO BID HEART HEALTH . Rosuvastatin Calcium (Crestor) 10 MG TABLET 1 TAB PO DAILY HYPERLIPIDEMIA Sevelamer Carbonate (Renvela) 800 MG TABLET 2 TAB PO WM CKD Sodium Bicarbonate 325 MG TABLET 1,300 MG PO BID KIDNEY HEALTH . Warfarin Sodium (Coumadin) 5 MG TABLET 1 TAB PO DAILY BLOOD THINNER .. Past History Travel History Traveled to [place] past 21 day No Medical History Neurological: NONE EENT: NONE Cardiovascular: AFIB (refuses/ not started on antico), aflutter, hypertension Respiratory: NONE Gastrointestinal: NONE Hepatic: NONE Renal: CKD biopsy-proven diabetic/hypertensive nephropathy R.ARM AVF Musculoskeletal: gout Psychiatric: NONE Endocrine: diabetes, she reports that her diabetes has been referred for roughly 10 years. She denies any retinopathy. 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 Normal EF of 60%. 2. Moderate left ventricular hypertrophy. 3. Moderate left atrial enlargement. 4. Mild mitral regurgitation. 5. Moderate tricuspid regurgitation. 6. Mild aortic sclerosis with mild aortic regurgitation. 7. Mild pulmonic regurgitation. 8. Moderate to severe pulmonary hypertension. Exam & Diagnostic Data Vital Signs and I&O Vital Signs Date Time Temp Pulse Resp B/P B/P Pulse O2 O2 Flow FiO2 Mean Ox Delivery Rate 10/04 1259 110 18 173/83 98 Nasal 2.5L Cannula 10/04 1256 98 Nasal 2.5L Cannula 10/04 1133 98.9 69 18 161/95 95 Nasal 2.5L Cannula Intake & Output 10/04 1600 10/04 0800 10/04 0000 10/03 1600 10/03 0800 10/03 0000 Intake Total 0 Output Total 200 Balance -200 Intake, Oral 0 Output, Urine 200 Patient 200 lb Weight Weight Reported by Patient Measurement Method Physical Exam: Well-developed, overweight elderly female in no acute distress. Vital signs: See above. HEENT: Normocephalic, atraumatic, EOMI, slightly dry mucous membranes. Neck: No JVD, right carotid bruit. Lungs: Decreased breath sounds otherwise clear. Heart: S1, S2 (irregularly, irregular) with soft (grade 1-2/6) systolic murmur. Abdomen: Soft, nontender, positive bowel sounds. Extremities: 1-2+ bilateral lower extremity edema. Labs/Rayshawn Results: Laboratory Tests 10/04 10/04 1140 1128 Chemistry Sodium (137 - 145 mmol/L) 146 H Potassium (3.5 - 5.1 mmol/L) 4.2 Chloride (98 - 107 mmol/L) 106 Carbon Dioxide (22 - 30 mmol/L) 26 Anion Gap (5 - 16) 14 BUN (7 - 17 mg/dL) 61 H Creatinine (0.5 - 1.0 mg/dL) 3.2 H Estimated GFR (>60 ml/min) 14 L BUN/Creatinine Ratio (7 - 25 %) 19.1 Glucose (65 - 99 mg/dL) 159 H Calcium (8.4 - 10.2 mg/dL) 9.8 Magnesium (1.6 - 2.3 mg/dL) 2.1 Total Bilirubin (0.2 - 1.3 mg/dL) 1.0 AST (14 - 36 U/L) 15 ALT (9 - 52 U/L) 6 L Alkaline Phosphatase (<127 U/L) 233 H Troponin I (< 0.11 ng/ml) < 0.01 [id number] Pept (<125 pg/mL) 10983 H Cancelled Total Protein (6.3 - 8.2 g/dL) 6.4 Albumin (3.5 - 5.0 g/dL) 3.6 Globulin (1.9 - 4.2 gm/dL) 2.8 Albumin/Globulin Ratio (1.1 - 2.2 %) 1.3 Coagulation PT (9.4 - 12.5 SEC) 12.2 INR (0.90 - 1.19) 1.16 APTT (25 - 37 SEC) 31 Hematology CBC w Diff NO MAN DIFF REQ WBC (4.8 - 10.8 /CUMM) 8.8 RBC (4.20 - 5.40 /CUMM) 4.12 L Hgb (12.0 - 16.0 G/DL) 11.5 L Hct (37 - 47 %) 35.0 L MCV (81.0 - 99.0 FL) 85.1 MCH (27.0 - 31.0 PG) 27.8 MCHC (33.0 - 37.0 G/DL) 32.7 L RDW (11.5 - 14.5 %) 16.8 H Plt Count (130 - 400 /CUMM) 193 MPV (7.4 - 10.4 FL) 8.3 Gran % (42.2 - 75.2 %) 77.1 H Lymphocytes % (20.5 - 51.1 %) 11.7 L Monocytes % (1.7 - 9.3 %) 6.6 Eosinophils % (0 - 5 %) 3.6 Basophils % (0.0 - 2.0 %) 1.0 Absolute Granulocytes (1.4 - 6.5 /CUMM) 6.8 H Absolute Lymphocytes (1.2 - 3.4 /CUMM) 1.0 L Absolute Monocytes (0.10 - 0.60 /CUMM) 0.6 Absolute Eosinophils (0.0 - 0.7 /CUMM) 0.3 Absolute Basophils (0.0 - 0.2 /CUMM) 0.1 Diagnostic Data EKG Results 10/04/2017: Atrial fibrillation with a rapid ventricular response, leftward axis, and probable LVH with secondary repolarization abnormalities. No significant change when compared to previous tracing. CXR Results 10/04/2017: Pulmonary vascular congestion with development of right pleural effusion. Bibasilar atelectasis. Assessment/Plan Assessment/Plan 72-[id number]-f w/ hx gout, HLD, HTN, DM, CKD s/p RUE AV fistula 06/2016 w/o use necessity, ch anemia on RITO, & PAF s/p electrical CV following a CARI ~2015 w/ recurrence and successful antiarrhythmic Rx w/ chemical CV ~2016 who was recently hospitalized (08/23-09/01/2017) for AF w/ RVR and who gradually improved w/ standard therapy, but who became progressively SOB w/ wt gain at home over the past few weeks despite compliance w/ her diet & medical regimen and who was again found to be in AF w/ RVR & HFpEF. Recommendations: * Admit to telemetry, follow-up troponins, follow-up ECGs. * Received IV furosemide 40 mg 1 in the ED. * Repeat CXR in a.m. following good diuresis and reassess the need for further IV diuretic therapy. * Consider repeat echocardiogram only if she does not have a good response to diuretic therapy. * Will likely need to place an higher outpatient dosage of diuretic. * DVT prophylaxis being addressed by the anticoagulation she is on for atrial fibrillation. Further recommendations will follow, Thank you. Consult Acknowledgment - Thank you for your consult request. Sandra Moseley MD 10/04/17 1742: Assessment/Plan Consult Acknowledgment - Thank you for your consult request. Consult Acknowledgment - Thank you for your consult request. Sandra Moseley MD 10/04/17 1364: Assessment/Plan Consult Acknowledgment - Thank you for your consult request.
[2017-10-04 21:30] VITALS: BP 142/88
[2017-10-05 06:36] VITALS: BP 126/80
--- NOTE | 2017-10-05 07:36 | PN- Housestaff ---
Lorelei BARBOUR,[facility] 10/05/17 0735: Subjective Follow-up For: Heart failure with preserved ejection fraction Tele-Events Since Last Visit: Atrial fibrillation Heart rate 74-101 Overnight events noted Subjective: Patient states she continues to have shortness of breath slightly improved compared to yesterday, she was able walk more without getting short of breath. She thinks her lower extremity edema is slightly worse than yesterday. Review of Systems Constitutional: Reports: no symptoms. EENTM: Reports: no symptoms. Cardiovascular: Reports: orthopena, peripheral edema. Respiratory: Reports: orthopnea, short of breath. Gastrointestinal: Reports: no symptoms. Genitourinary: Reports: no symptoms. Musculoskeletal: Reports: no symptoms. Skin: Reports: no symptoms. Neurological/Psychological: Reports: no symptoms. Hematologic/Endocrine: Reports: no symptoms. Immunologic/Allergic: Reports: no symptoms. Objective Last 24 Hrs of Vital Signs/I&O Vital Signs Date Time Temp Pulse Resp B/P B/P Pulse O2 O2 Flow FiO2 Mean Ox Delivery Rate 10/05 1410 98.7 74 18 128/64 98 Nasal 2.5L Cannula 10/05 0800 95 Nasal 2.5L Cannula 10/05 0636 97.6 51 20 126/80 93 Nasal 2.0L Cannula 10/05 0000 Nasal 2.0L Cannula 10/04 2151 Nasal 2.0L Cannula 10/040 97.3 78 14 142/88 98 Nasal Cannula 10/04 2130 98 Nasal 2.0L Cannula 10/04 2051 98.9 108 16 158/82 98 Nasal 3.0L Cannula 10/04 1828 98.4 101 16 161/87 96 Nasal 3.0L Cannula 10/04 1642 97.8 87 18 168/90 100 Room Air Intake & Output 10/05 1600 10/05 0800 10/05 0000 Intake Total 500 535 118 Output Total 400 350 Balance 100 185 118 Intake, IV 15 Intake, Oral 500 520 118 Output, Urine 400 350 Patient 246 lb 247 lb Weight Weight Bed scale Measurement Method Physical Exam General Appearance: Alert, Oriented X3, Cooperative Skin: No Rashes, No Breakdown Cardiovascular: Normal S1, Normal S2, Irregular Lungs: decreased breath sounds Abdomen: Normal Bowel Sounds, Soft, No Tenderness Extremities: No Clubbing, No Cyanosis, +2 pitting edema Current Medications: Current Medications Sig/Cole Start time Last Medication Dose Route Stop Time Status Admin Acetaminophen 650 MG Q6P PRN 10/04 1800 AC PO Atorvastatin Calcium 40 MG 1700 10/04 1745 AC 10/04 PO 1820 Calcitriol 0.25 MCG DAILY 10/04 173 AC 10/05 PO 0856 Diltiazem HCl 240 MG DAILY 10/04 1737 AC 10/05 PO 0856 Febuxostat 40 MG DAILY 10/05 1000 AC 10/05 PO 0856 Ferrous Sulfate 325 MG TID 10/04 220 AC 10/05 PO 0856 Furosemide 40 MG ONCE ONE 10/05 1445 DC IV 10/05 1446 Furosemide 40 MG 7:30 AM, & 4:30 PM 10/05 0730 AC 10/05 IV 0647 Insulin Aspart 0 TIDAC 10/05 0800 AC 10/05 SC 1208 Insulin Aspart 0 AT BEDTIME 10/04 220 AC SC Metoprolol Tartrate 37.5 MG BID 10/04 220 AC 10/05 PO 0856 Morphine Sulfate 2 MG Q4P PRN 10/04 1800 AC 10/05 IV 1021 Patient Medication 1 ED ONE ONE 10/05 1200 DC Teaching ED 10/05 1201 Sevelamer Carbonate 1,600 MG WM 10/05 0800 AC 10/05 PO 1208 Sodium Bicarbonate 1,300 MG BID 10/04 220 AC 10/05 PO 0855 Warfarin Sodium 5 MG COUMADIN 1700 ONE 10/04 1800 DC 10/04 PO 10/04 1801 1820 Last 24 Hrs of Lab/Rayshawn Results Last 24 Hrs of Labs/Mics: Laboratory Tests 10/05/17 0820: PT 12.2, INR 1.16 10/05/17 0610: Anion Gap 13, Estimated GFR 15 L, BUN/Creatinine Ratio 20.6, CBC w Diff NO MAN DIFF REQ, RBC 3.81 L, MCV 85.2, MCH 28.1, MCHC 33.0, RDW 16.6 H, MPV 9.1, Gran % 66.8, Lymphocytes % 16.2 L, Monocytes % 10.9 H, Eosinophils % 5.1 H, Basophils % 1.0, Absolute Granulocytes 5.7, Absolute Lymphocytes 1.4, Absolute Monocytes 0.9 H, Absolute Eosinophils 0.4, Absolute Basophils 0.1 10/05/17 0030: Troponin I < 0.01 10/04/17 1815: Troponin I 0.02 Microbiology 10/04 2154 NASOPHARYN: Influenza Virus A & B Rapid Smear - COMP Assessment/Plan Assessment: Patient is a 72-year-old female with past medical history significant for paroxysmal atrial fibrillation status post cardioversion 2 on coumadin, diabetes not on any medications currently, diabetic and hypertensive nephropathy confirmed by biopsy, hypertension, hyperlipidemia, right external carotid artery stenosis, secondary hyper parathyroidism, gout presents with worsening Shortness of breath for the past 1 week. A/P 1. Shortness of breath; likely 2/2 HFpEF(ejection fraction of 60% on recent echocardiogram). - Repeat CXR without any significant improvement, Continue IV lasix 40mg BID. Consider fluid restriction if patient remains fluid overloaded. - Strict intake and output charting. - Daily weights - Supplemental O2 as needed to keep O2 sats above 90%. - Appreciate cardiology recommendations. 2. Chronic medical conditions. - Continue home medications. - NovoLog sliding scale. - INR of 1.16 today, one dose of Coumadin 5 mg given. - Daily INR amd dose coumadin accordingly. DVT Prophylaxis; On coumadin Patient is full code. Problem List: 1. Leg swelling 2. Dyspnea 3. Afib Pain Ratin Pain Location: None Pain Goal: Remain pain free Pain Plan: None Tomorrow's Labs & Rationales: BEP(on Lasix), INR(on Coumadin) Katarina BARBOUR,[facility] 10/05/17 1539: Attending MD Review Statement Attending Statement Attending MD Statement: examined this patient, discuss w/resident/PA/HORTICULTURE/FLORICULTURE TEACHER, agreed w/resident/PA/HORTICULTURE/FLORICULTURE TEACHER, reviewed EMR data (avail) Attending Assessment/Plan: Patient seen and examined. She feels slightly better however still getting short of breath upon moving around. She is afebrile and pulse rate is 74 respiratory 18 blood pressure 128/64 and saturations 98% on 2.5 L. Chest exam is unchanged and shows a decreased air entry at the bases especially on the right side. Legs show 3+ edema. Labs show normal white cell count and creatinine of 3.1. Assessment CHF Anasarca Obesity Hyponatremia resolved Chronic renal failure Plan Continue IV Lasix twice a day Monitor weight input output Continue low-salt diet Await further input from cardiology Foot elevation may be helpful to reduce peripheral edema
[2017-10-05 08:14] LABS: ABSOLUTE BASOPHIL COUNT 0.1 /CUMM (0.0-0.2); ABSOLUTE EOSINOPHIL COUNT 0.4 /CUMM (0.0-0.7); ABSOLUTE GRANULOCYTE CT 5.7 /CUMM (1.4-6.5); ABSOLUTE LYMPH COUNT 1.4 /CUMM (1.2-3.4); ABSOLUTE MONOCYTE COUNT 0.9 /CUMM (0.10-0.60); EOSINOPHIL % 5.1 % (0-5); GRANULOCYTE % 66.8 % (42.2-75.2); HEMATOCRIT 32.4 % (37-47); MEAN CORPUSCULAR HGB 28.1 PG (27.0-31.0); MEAN CORPUSCULAR VOLUME 85.2 FL (81.0-99.0); MEAN PLATELET VOLUME 9.1 FL (7.4-10.4); PLATELET COUNT 162 /CUMM (130-400); RBC DISTRIBUTION WIDTH 16.6 % (11.5-14.5); RED BLOOD CELL CT 3.81 /CUMM (4.20-5.40); WHITE BLOOD CELL COUNT 8.5 /CUMM (4.8-10.8)
[2017-10-05 09:19] LABS: PT 12.2 SEC (9.4-12.5)
--- NOTE | 2017-10-05 10:03 | RADIOLOGY REPORT ---
EXAMINATION: XR PORTABLE CHEST CLINICAL INFORMATION: CHF with hypoxia and respiratory failure. Shortness of breath while on by mouth Lasix. COMPARISON: Portable chest x-ray dated 10/04/2017. TECHNIQUE: Portable frontal view of the chest was obtained. FINDINGS: There is interval decrease in the aeration of the right hemithorax compared to the prior study with interval development of a fluid collection probably within the major fissure in the upper portion of the right hemithorax. Blunting of both left and right costophrenic angles is suggestive of a large right-sided pleural effusion and small left-sided pleural effusion. Prominence of the pulmonary vasculature is both centrally and peripherally is consistent with pulmonary edema. IMPRESSION: 1. Increasing right-sided pleural effusion with a small left-sided pleural effusion. 2. Prominent pulmonary edema.
--- NOTE | 2017-10-05 12:35 | Event Note ---
Event Note Event Note: Patient not adequately diuresing and will need to be admitted for aggressive IV diuresis with IV lasix twice daily. Patient was discussed with attending Dr. Bray and sign out clerk, Dr. Aponte. Will convert to full admission now. developer relations manager informed.
[2017-10-05 14:10] VITALS: BP 128/64
--- NOTE | 2017-10-05 15:05 | PN- Cardiology ---
Subjective Subjective: Remains in atrial fibrillation on telemetry with rate 74-100 bpm. Did have an episode of transient bradycardia at around 10:00 a.m. when she had a minimum heart rate 40 bpm. Breathing not significantly improved. Objective Vital Signs and I&Os Vital Signs Date Time Temp Pulse Resp B/P B/P Pulse O2 O2 Flow FiO2 Mean Ox Delivery Rate 10/05 1410 98.7 74 18 128/64 98 Nasal 2.5L Cannula 10/05 0800 95 Nasal 2.5L Cannula 10/05 0636 97.6 51 20 126/80 93 Nasal 2.0L Cannula 10/05 0000 Nasal 2.0L Cannula 10/04 2150 Nasal 2.0L Cannula 10/04 2129 97.3 78 14 142/88 98 Nasal Cannula 10/04 2129 98 Nasal 2.0L Cannula 10/04 2050 98.9 108 16 158/82 98 Nasal 3.0L Cannula 10/04 1828 98.4 101 16 161/87 96 Nasal 3.0L Cannula 10/04 1642 97.8 87 18 168/90 100 Room Air Intake & Output 10/05 1600 10/05 0800 10/05 0000 10/04 1600 10/04 0800 10/04 0000 Intake Total 500 535 118 0 Output Total 400 350 200 Balance 100 185 118 -200 Intake, IV 15 Intake, Oral 500 520 118 0 Output, Urine 400 350 200 Patient 246 lb 247 lb 200 lb Weight Weight Bed scale Reported by Patient Measurement Method Physical Exam: Well-developed, overweight elderly female in no acute distress. Vital signs: See above. HEENT: Normocephalic, atraumatic, EOMI, slightly dry mucous membranes. Neck: No JVD, right carotid bruit. Lungs: Decreased breath sounds otherwise clear. Heart: S1, S2 (irregularly, irregular) with soft (grade 1-2/6) systolic murmur. Abdomen: Soft, nontender, positive bowel sounds. Extremities: 1-2+ bilateral lower extremity edema. Current Medications: Current Medications Sig/Cole Start time Last Medication Dose Route Stop Time Status Admin Acetaminophen 650 MG Q6P PRN 10/04 1800 AC PO Atorvastatin Calcium 40 MG 1700 10/04 1745 AC 10/04 PO 1820 Calcitriol 0.25 MCG DAILY 10/04 173 AC 10/05 PO 0856 Diltiazem HCl 240 MG DAILY 10/04 1736 AC 10/05 PO 0856 Febuxostat 40 MG DAILY 10/05 1000 AC 10/05 PO 0856 Ferrous Sulfate 325 MG TID 10/04 2200 AC 10/05 PO 0856 Furosemide 40 MG ONCE ONE 10/05 1445 DC IV 10/05 1446 Furosemide 40 MG 7:30 AM, & 4:30 PM 10/05 0730 AC 10/05 IV 0647 Insulin Aspart 0 TIDAC 10/05 0800 AC 10/05 SC 1208 Insulin Aspart 0 AT BEDTIME 10/04 2200 AC SC Metoprolol Tartrate 37.5 MG BID 10/04 2200 AC 10/05 PO 0856 Morphine Sulfate 2 MG Q4P PRN 10/04 1800 AC 10/05 IV 1021 Patient Medication 1 ED ONE ONE 10/05 1200 DC Teaching ED 10/05 1201 Sevelamer Carbonate 1,600 MG WM 10/05 0800 AC 10/05 PO 1208 Sodium Bicarbonate 1,300 MG BID 10/04 2200 AC 10/05 PO 0855 Warfarin Sodium 5 MG COUMADIN 1700 ONE 10/04 1800 DC 10/04 PO 10/04 1801 1820 Results Recent Imaging Studies: CXR 10/05/2017: 1. Increasing right-sided pleural effusion with a small left-sided pleural effusion. 2. Prominent pulmonary edema. Assessment/Plan Assessment/Plan 72-y-o-w-f w/ hx gout, HLD, HTN, DM, CKD s/p RUE AV fistula 06/2016 w/o use necessity, ch anemia on RITO, & PAF s/p electrical CV following a CARI ~2015 w/ recurrence and successful antiarrhythmic Rx w/ chemical CV ~2017 who was recently hospitalized (08/23-09/01/2017) for AF w/ RVR and who gradually improved w/ standard therapy, but who became progressively SOB w/ wt gain at home over the past few weeks despite compliance w/ her diet & medical regimen and who was again found to be in AF w/ RVR & HFpEF. No significant diuresis from yesterday to today. Slightly improved creatinine and slightly worsened BUN. Recommendations: * Repeat CXR without significant improvement. * Continue IV furosemide 40 mg twice daily. * Will likely need to place an higher outpatient dosage of diuretic. * DVT prophylaxis being addressed by the anticoagulation she is on for atrial fibrillation. * Consider volume restriction. Continue telemetry? Yes
--- NOTE | 2017-10-05 15:40 | Admission Certification ---
Admission Certification Certification Statement - As attending physician, I certify that at the time of - admission, based on clinical presentation, severity of - symptoms, need for further diagnostic testing and - therapeutic interventions, and risk of adverse outcomes - without in-hospital treatment, in my clinical assessment, - this patient requires an acute hospital stay for a minimum - of two nights or longer. I have also considered psychsocial - factors such as support system, advanced age, financial - issues, cognitive issues, and failed out-patient treatments, - past re-admission history, safety of patient, and lack of - compliance as applicable. Specific rationale supporting this admission is: CHF and anasarca and right-sided pleural effusion
[2017-10-05 23:02] VITALS: BP 122/72
[2017-10-06 07:01] VITALS: BP 126/66
--- NOTE | 2017-10-06 07:15 | PN- Housestaff ---
Lorelei BARBOUR,[facility] 10/06/17 0714: Subjective Follow-up For: Heart Failure with preserved ejection fraction Atrial fibrillation Tele-Events Since Last Visit: Atrial fibrillation Heart rate 71-82 Subjective: Reports improvement in her lower extremity edema. Continues to be on oxygen for shortness of breath. Patient was asking for some material to read about heart failure. Review of Systems Constitutional: Reports: no symptoms. EENTM: Reports: no symptoms. Cardiovascular: Reports: orthopena, peripheral edema. Respiratory: Reports: short of breath. Gastrointestinal: Reports: no symptoms. Genitourinary: Reports: no symptoms. Musculoskeletal: Reports: no symptoms. Skin: Reports: no symptoms. Neurological/Psychological: Reports: no symptoms. Hematologic/Endocrine: Reports: no symptoms. Immunologic/Allergic: Reports: no symptoms. Objective Last 24 Hrs of Vital Signs/I&O Vital Signs Date Time Temp Pulse Resp B/P B/P Pulse O2 O2 Flow FiO2 Mean Ox Delivery Rate 10/06 0933 100 124/60 10/06 0800 94 Nasal 2.5L Cannula 10/06 0701 98.2 102 18 126/66 94 Nasal Cannula 10/06 0000 Nasal 2.5L Cannula 10/05 2302 98.4 102 18 122/72 94 Nasal Cannula 10/05 2238 87 140/82 10/05 1600 97 Nasal 2.5L Cannula 10/05 1410 98.7 74 18 128/64 98 Nasal 2.5L Cannula Intake & Output 10/06 1600 10/06 0800 10/06 0000 Intake Total 100 558 Output Total 450 Balance 100 108 Intake, Oral 100 558 Output, Urine 450 Patient 248 lb Weight Weight Bed scale Measurement Method Physical Exam General Appearance: Alert, Oriented X3, Cooperative Skin: No Rashes, No Breakdown Cardiovascular: Normal S1, Normal S2, Irregular Lungs: decreased breath sounds Abdomen: Normal Bowel Sounds, Soft, No Tenderness Extremities: No Clubbing, No Cyanosis, +2 pitting edema Current Medications: Current Medications Sig/Cole Start time Last Medication Dose Route Stop Time Status Admin Acetaminophen 650 MG Q6P PRN 10/04 1800 AC PO Atorvastatin Calcium 40 MG 1700 10/04 1745 AC 10/05 PO 1612 Calcitriol 0.25 MCG DAILY 10/04 1737 AC 10/06 PO 0933 Diltiazem HCl 240 MG DAILY 10/04 1737 AC 10/06 PO 0933 Febuxostat 40 MG DAILY 10/05 1000 AC 10/06 PO 0934 Ferrous Sulfate 325 MG TID 10/04 2200 AC 10/06 PO 0933 Furosemide 40 MG ONCE ONE 10/05 1445 DC 10/05 IV 10/05 1446 1612 Furosemide 40 MG 7:30 AM, & 4:30 PM 10/05 0730 AC 10/06 IV 0752 Insulin Aspart 0 TIDAC 10/05 0800 AC 10/06 SC 1156 Insulin Aspart 0 AT BEDTIME 10/04 2199 AC SC Metoprolol Tartrate 37.5 MG BID 10/05 2200 AC 10/06 PO 0933 Metoprolol Tartrate 37.5 MG BID 10/04 2200 DC 10/05 PO 0856 Morphine Sulfate 2 MG Q4P PRN 10/04 1800 AC 10/06 IV 0934 Sevelamer Carbonate 1,600 MG WM 10/05 0800 AC 10/06 PO 1155 Sodium Bicarbonate 1,300 MG BID 10/04 220 AC 10/06 PO 0933 Warfarin Sodium 5 MG COUMADIN 1700 ONE 10/06 1700 AC PO 10/06 1701 Warfarin Sodium 5 MG COUMADIN 1700 ONE 10/05 1700 DC 10/05 PO 10/05 1701 1612 Last 24 Hrs of Lab/Rayshawn Results Last 24 Hrs of Labs/Mics: Laboratory Tests 10/06/17 0717: Anion Gap 12, Estimated GFR 14 L, BUN/Creatinine Ratio 19.7, PT 13.4 H, INR 1.28 H Assessment/Plan Assessment: Patient is a 72-year-old female with past medical history significant for paroxysmal atrial fibrillation status post cardioversion 2 on coumadin, diabetes not on any medications currently, diabetic and hypertensive nephropathy confirmed by biopsy, hypertension, hyperlipidemia, right external carotid artery stenosis, secondary hyper parathyroidism, gout presents with worsening Shortness of breath for the past 1 week. A/P 1. Shortness of breath; likely 2/2 HFpEF(ejection fraction of 60% on recent echocardiogram). - Continue IV lasix 40mg BID. - Fluid restriction to 1000 mL. - Strict intake and output charting. - Daily weights - Keep the legs elevated - Supplemental O2 as needed to keep O2 sats above 90%. - Appreciate cardiology recommendations. 2. Chronic medical conditions. - Continue home medications. - NovoLog sliding scale. - INR of 1.28 today, one dose of Coumadin 5 mg given. - Daily INR amd dose coumadin accordingly. DVT Prophylaxis; On coumadin Patient is full code. Problem List: 1. Heart failure with preserved ejection fraction Pain Ratin Pain Location: None Pain Goal: Remain pain free Pain Plan: None Tomorrow's Labs & Rationales: BEP(on Lasix, CKD) Katarina BARBOUR,[facility] 10/06/17 1045: Attending MD Review Statement Attending Statement Attending Assessment/Plan: Attending MD Statement: examined this patient, discuss w/resident/PA/PRODUCTION REPAIRER, agreed w/resident/PA/PRODUCTION REPAIRER, reviewed EMR data (avail) Attending Assessment/Plan: Patient seen and examined. She feels slightly better however still getting short of breath upon moving around. She is afebrile and pulse rate is 100 respiratory 18 blood pressure 124/60 and saturations 94% on 2.5 L. Chest exam is unchanged and shows a decreased air entry at the bases especially on the right side. Legs show 3+ edema. Labs show creatinine of 3.3. Chest x-ray done yesterday shows 1. Increasing right-sided pleural effusion with a small left-sided pleural effusion. 2. Prominent pulmonary edema. Assessment CHF Anasarca Obesity Hyponatremia resolved Chronic renal failure Plan Continue IV Lasix twice a day Monitor weight input output Continue low-salt diet Continue Coumadin and check INR in the morning Recheck creatinine tomorrow Foot elevation may be helpful to reduce peripheral edema
[2017-10-06 08:14] LABS: PT 13.4 SEC (9.4-12.5)
[2017-10-06 14:28] VITALS: BP 128/64
--- NOTE | 2017-10-06 17:39 | PN- Cardiology ---
Subjective Subjective: No complaints. Objective Vital Signs and I&Os Vital Signs Date Time Temp Pulse Resp B/P B/P Pulse O2 O2 Flow FiO2 Mean Ox Delivery Rate 10/06 1600 94 Nasal 2.5L Cannula 10/06 1428 98.6 64 18 128/64 94 10/06 0933 100 124/60 10/06 0800 94 Nasal 2.5L Cannula 10/06 0701 98.2 102 18 126/66 94 Nasal Cannula 10/06 0000 Nasal 2.5L Cannula 10/05 2302 98.4 102 18 122/72 94 Nasal Cannula 10/05 2238 87 140/82 Intake & Output 10/06 1600 10/06 0800 10/06 0000 10/05 1600 10/05 0800 10/05 0000 Intake Total 500 100 558 500 535 118 Output Total 550 450 400 350 Balance -50 100 108 100 185 118 Intake, IV 15 Intake, Oral 500 100 558 500 520 118 Output, Urine 550 450 400 350 Patient 248 lb 246 lb 247 lb Weight Weight Bed scale Bed scale Measurement Method Physical Exam: Well-developed, overweight elderly female in no acute distress. Vital signs: See above. HEENT: Normocephalic, atraumatic, EOMI, slightly dry mucous membranes. Neck: No JVD, right carotid bruit vs transmitted systolic murmur. Lungs: Decreased breath sounds otherwise clear. Heart: S1, S2 (irregularly, irregular) with soft (grade 1-2/6) systolic murmur. Abdomen: Soft, nontender, positive bowel sounds. Extremities: 1-2+ bilateral lower extremity edema. Current Medications: Current Medications Sig/Cole Start time Last Medication Dose Route Stop Time Status Admin Acetaminophen 650 MG Q6P PRN 10/04 1800 AC PO Atorvastatin Calcium 40 MG 1700 10/04 1745 AC 10/06 PO 1541 Calcitriol 0.25 MCG DAILY 10/04 1737 AC 10/06 PO 0933 Diltiazem HCl 240 MG DAILY 10/04 1737 AC 10/06 PO 0933 Febuxostat 40 MG DAILY 10/05 1000 AC 10/06 PO 0934 Ferrous Sulfate 325 MG TID 10/04 2200 AC 10/06 PO 0933 Furosemide 40 MG 7:30 AM, & 4:30 PM 10/05 0730 AC 10/06 IV 1542 Insulin Aspart 0 TIDAC 10/05 0800 AC 10/06 SC 1156 Insulin Aspart 0 AT BEDTIME 10/04 2199 AC SC Metoprolol Tartrate 37.5 MG BID 10/050 AC 10/06 PO 0933 Metoprolol Tartrate 37.5 MG BID 10/04 2200 DC 10/05 PO 0856 Morphine Sulfate 2 MG Q4P PRN 10/04 1800 AC 10/06 IV 0934 Sevelamer Carbonate 1,600 MG WM 10/05 0800 AC 10/06 PO 1155 Sodium Bicarbonate 1,300 MG BID 10/04 2200 AC 10/06 PO 0933 Warfarin Sodium 5 MG COUMADIN 1700 ONE 10/06 1700 DC 10/06 PO 10/06 1701 1541 Results Last 48 Hrs of Labs/Mics: Laboratory Tests 10/06/17 0717: Anion Gap 12, Estimated GFR 14 L, BUN/Creatinine Ratio 19.7, PT 13.4 H, INR 1.28 H 10/05/17 0820: PT 12.2, INR 1.16 10/05/17 0610: Anion Gap 13, Estimated GFR 15 L, BUN/Creatinine Ratio 20.6, CBC w Diff NO MAN DIFF REQ, RBC 3.81 L, MCV 85.2, MCH 28.1, MCHC 33.0, RDW 16.6 H, MPV 9.1, Gran % 66.8, Lymphocytes % 16.2 L, Monocytes % 10.9 H, Eosinophils % 5.1 H, Basophils % 1.0, Absolute Granulocytes 5.7, Absolute Lymphocytes 1.4, Absolute Monocytes 0.9 H, Absolute Eosinophils 0.4, Absolute Basophils 0.1 10/05/17 0030: Troponin I < 0.01 10/04/17 1815: Troponin I 0.02 Microbiology 10/04 2154 NASOPHARYN: Influenza Virus A & B Rapid Smear - COMP Assessment/Plan Assessment/Plan 72-y-o-w-f w/ hx gout, HLD, HTN, DM, CKD s/p RUE AV fistula 06/2016 w/o use necessity, ch anemia on RITO, & PAF s/p electrical CV following a CARI ~2015 w/ recurrence and successful antiarrhythmic Rx w/ chemical CV ~2016 who was recently hospitalized (08/23-09/01/2017) for AF w/ RVR and who gradually improved w/ standard therapy, but who became progressively SOB w/ wt gain at home over the past few weeks despite compliance w/ her diet & medical regimen and who was again found to be in AF w/ RVR & HFpEF. No significant diuresis from yesterday to today. BUN/creatinine up slightly. Recommendations: * Would continue with IV furosemide 40 mg twice daily, but would consider adding by mouth metolazone 5 mg for the next 48 hours ~30 minutes prior to giving the a.m. IV furosemide. * Continue strict input/outputs and daily weights. * Consider nephrology consultation. * Will likely need to place an higher outpatient dosage of diuretic. * DVT prophylaxis being addressed by the anticoagulation she is on for atrial fibrillation. Continue telemetry? Yes
[2017-10-06 21:07] VITALS: BP 120/68
[2017-10-07 06:54] VITALS: BP 126/78
--- NOTE | 2017-10-07 08:14 | PN- Housestaff ---
Lorelei BARBOUR,[facility] 10/07/17 0814: Subjective Follow-up For: Heart Failure with preserved ejection fraction Atrial fibrillation on coumadin Tele-Events Since Last Visit: Atrial fibrillation Heart rate 66-92. Subjective: Patient states she was able to walk in the morning without getting short of breath and lower extremity edema is improving as well. Denies any chest pain, palpitations, cough, sputum production or overnight events. Review of Systems Constitutional: Reports: no symptoms. EENTM: Reports: no symptoms. Cardiovascular: Reports: orthopena, peripheral edema. Respiratory: Reports: short of breath. Gastrointestinal: Reports: no symptoms. Genitourinary: Reports: no symptoms. Musculoskeletal: Reports: no symptoms. Skin: Reports: no symptoms. Neurological/Psychological: Reports: no symptoms. Hematologic/Endocrine: Reports: no symptoms. Immunologic/Allergic: Reports: no symptoms. Objective Last 24 Hrs of Vital Signs/I&O Vital Signs Date Time Temp Pulse Resp B/P B/P Pulse O2 O2 Flow FiO2 Mean Ox Delivery Rate 10/07 1420 98.2 61 20 124/80 97 Nasal 2.5L Cannula 10/07 1103 77 142/78 10/07 0800 Nasal 2.5L Cannula 10/07 0654 97.8 74 18 126/78 95 Nasal Cannula 10/07 0000 Nasal 2.5L Cannula 10/06 2107 98.0 81 18 120/68 98 Nasal 2.5L Cannula 10/06 2105 81 120/68 10/06 1600 94 Nasal 2.5L Cannula Intake & Output 10/07 1600 10/07 0800 10/07 0000 Intake Total 740 110 514 Output Total 875 550 300 Balance -135 -440 214 Intake, IV 10 14 Intake, Oral 740 100 500 Output, Urine 875 550 300 Physical Exam General Appearance: Alert, Oriented X3, Cooperative Skin: No Rashes, No Breakdown Cardiovascular: Normal S1, Normal S2, Irregular Lungs: decreased breath sounds Abdomen: Normal Bowel Sounds, Soft, No Tenderness Extremities: No Clubbing, No Cyanosis, +2 pitting edema bilaterally Current Medications: Current Medications Sig/Cole Start time Last Medication Dose Route Stop Time Status Admin Acetaminophen 650 MG Q6P PRN 10/04 1800 AC PO Atorvastatin Calcium 40 MG 1700 10/04 1745 AC 10/06 PO 1541 Calcitriol 0.25 MCG DAILY 10/04 1737 AC 10/07 PO 1102 Diltiazem HCl 240 MG DAILY 10/04 1737 AC 10/07 PO 1102 Febuxostat 40 MG DAILY 10/05 1000 AC 10/07 PO 1101 Ferrous Sulfate 325 MG TID 10/04 2200 AC 10/07 PO 1103 Furosemide 40 MG 7:30 AM, & 4:30 PM 10/05 0730 AC 10/07 IV 0705 Insulin Aspart 0 TIDAC 10/05 0800 AC 10/07 SC 1153 Insulin Aspart 0 AT BEDTIME 10/04 2200 AC SC Metolazone 5 MG 0700 10/07 0700 AC 10/07 PO 10/08 0800 0630 Metoprolol Tartrate 37.5 MG BID 10/05 2200 AC 10/07 PO 1103 Morphine Sulfate 2 MG Q4P PRN 10/04 1800 AC 10/06 IV 0934 Potassium Chloride 20 MEQ DAILY 10/07 1524 AC PO Potassium Chloride 20 MEQ DAILY 10/07 1023 DC PO Sevelamer Carbonate 1,600 MG WM 10/05 0800 AC 10/07 PO 1151 Sodium Bicarbonate 1,300 MG BID 10/04 220 AC 10/07 PO 1102 Warfarin Sodium 5 MG COUMADIN 1700 ONE 10/07 1700 AC PO 10/07 1701 Warfarin Sodium 5 MG COUMADIN 1700 ONE 10/06 1700 DC 10/06 PO 10/06 1701 1541 Last 24 Hrs of Lab/Rayshawn Results Last 24 Hrs of Labs/Mics: Laboratory Tests 10/07/17 0600: Anion Gap 10, Estimated GFR 14 L, BUN/Creatinine Ratio 21.8, PT 14.7 H, INR 1.40 H Assessment/Plan Assessment: Patient is a 72-year-old female with past medical history significant for paroxysmal atrial fibrillation status post cardioversion 2 on coumadin, diabetes not on any medications currently, diabetic and hypertensive nephropathy confirmed by biopsy, hypertension, hyperlipidemia, right external carotid artery stenosis, secondary hyper parathyroidism, gout presents with worsening Shortness of breath for the past 1 week. A/P 1. Shortness of breath; likely 2/2 HFpEF(ejection fraction of 60% on recent echocardiogram). - Continue IV lasix 40mg BID, metolazone was added yesterday x 48 hours. Repeat BP in a.m. to monitor creatinine while on Lasix and metolazone. - Continue fluid restriction to 1000 mL. - Strict intake and output charting. - Daily weights - Supplemental O2 as needed to keep O2 sats above 90%. - Appreciate cardiology recommendations. - Nephrology consult for chronic kidney disease. 2. Chronic medical conditions. - Continue home medications. - NovoLog sliding scale. - INR of 1.46 today, one dose of Coumadin 5 mg given. - Daily INR amd dose coumadin accordingly. DVT Prophylaxis; On coumadin Patient is full code. Problem List: 1. Heart failure with preserved ejection fraction 2. Afib 3. Dyspnea Pain Ratin Pain Location: None Pain Goal: Remain pain free Pain Plan: None Tomorrow's Labs & Rationales: BEP(on IV Lasix), INR(on Coumadin) Bina BARBOUR,Amir 10/07/17 1005: Attending MD Review Statement Attending Statement Attending MD Statement: examined this patient, discuss w/resident/PA/IMMIGRATION LAWYER, agreed w/resident/PA/IMMIGRATION LAWYER, reviewed EMR data (avail), discussed with nursing Attending Assessment/Plan: Pt was seen and evalauted. Chart reviewed. Currently reports improvement in her SOB. She has baseline O2 requirement and reports following strict diet at home. VSS. Lungs are CTAB INR subtherapeutic. --Cont diurectics, daily weights, strict I&Os --replete K --f/u in INR and lytes in am --f/u Cards recs --rest of the plan as per resident's note
[2017-10-07 08:30] LABS: PT 14.7 SEC (9.4-12.5)
--- NOTE | 2017-10-07 12:42 | PN- Cardiology ---
Subjective Subjective: Overall, the patient appears stable. No new cardiac issues. Diuresing very slowly. Metolazone started today. Objective Vital Signs and I&Os Vital Signs Date Time Temp Pulse Resp B/P B/P Pulse O2 O2 Flow FiO2 Mean Ox Delivery Rate 10/07 1103 77 142/78 10/07 0800 Nasal 2.5L Cannula 10/07 0654 97.8 74 18 126/78 95 Nasal Cannula 10/07 0000 Nasal 2.5L Cannula 10/06 2107 98.0 81 18 120/68 98 Nasal 2.5L Cannula 10/06 2105 81 120/68 10/06 1600 94 Nasal 2.5L Cannula 10/06 1428 98.6 64 18 128/64 94 Intake & Output 10/07 1600 10/07 0800 10/07 0000 10/06 1600 10/06 0800 10/06 0000 Intake Total 320 110 514 500 100 558 Output Total 775 550 300 550 450 Balance -455 -440 214 -50 100 108 Intake, IV 10 14 Intake, Oral 320 100 500 500 100 558 Output, Urine 775 550 300 550 450 Patient 248 lb Weight Weight Bed scale Measurement Method Physical Exam: General Appearance: Alert, Oriented X3, Cooperative Skin: No Rashes, No Breakdown Cardiovascular: Normal S1, Normal S2, Irregular, 1 to 2/6 systolic murmur, soft right carotid bruit Lungs: decreased breath sounds Abdomen: Normal Bowel Sounds, Soft, No Tenderness Extremities: No Clubbing, No Cyanosis, +1-2 pitting edema Current Medications: Current Medications Sig/Cole Start time Last Medication Dose Route Stop Time Status Admin Acetaminophen 650 MG Q6P PRN 10/04 1800 AC PO Atorvastatin Calcium 40 MG 1700 10/04 1745 AC 10/06 PO 1541 Calcitriol 0.25 MCG DAILY 10/04 1737 AC 10/07 PO 1102 Diltiazem HCl 240 MG DAILY 10/04 1737 AC 10/07 PO 1102 Febuxostat 40 MG DAILY 10/05 1000 AC 10/07 PO 1101 Ferrous Sulfate 325 MG TID 10/04 2199 AC 10/07 PO 1103 Furosemide 40 MG 7:30 AM, & 4:30 PM 10/05 0730 AC 10/07 IV 0705 Insulin Aspart 0 TIDAC 10/05 08 AC 10/07 SC 1153 Insulin Aspart 0 AT BEDTIME 02/21 2200 AC SC Metolazone 5 MG 0700 10/07 0700 AC 10/07 PO 10/08 08 0630 Metoprolol Tartrate 37.5 MG BID 10/05 220 AC 10/07 PO 1103 Morphine Sulfate 2 MG Q4P PRN 10/04 1800 AC 10/06 IV 0934 Potassium Chloride 20 MEQ DAILY 10/07 1023 AC PO Sevelamer Carbonate 1,600 MG WM 10/05 0800 AC 10/07 PO 1151 Sodium Bicarbonate 1,300 MG BID 10/04 2199 AC 10/07 PO 1102 Warfarin Sodium 5 MG COUMADIN 1700 ONE 10/06 1700 DC 10/06 PO 10/06 1701 1541 Results Last 48 Hrs of Labs/Mics: Laboratory Tests 10/07/17 0600: Anion Gap 10, Estimated GFR 14 L, BUN/Creatinine Ratio 21.8, PT 14.7 H, INR 1.40 H 10/06/17 0717: Anion Gap 12, Estimated GFR 14 L, BUN/Creatinine Ratio 19.7, PT 13.4 H, INR 1.28 H Assessment/Plan Assessment/Plan Assessment: 1. Acute on chronic HFpEF 2. Paxil atrial fibrillation with rapid ventricular rate 3. Hypertension 4. Hyperlipidemia 5. Chronic renal insufficiency, status post right upper extremity AV fistula 6. History of diabetes 7. Chronic anemia Recommendations: -The patient has continue to diurese very slowly. -Continue as recommended by Dr. Aponte. Metolazone started today. Continue IV Lasix. -Continue to monitor her intakes, outputs, and daily weights. -Follow-up metabolic parameters in the morning. -Depending on course over the next 24 hours, consider additional metolazone tomorrow morning. -As recommended by Dr. Aponte, consider nephrology input as well. Continue telemetry? Yes
[2017-10-07 14:20] VITALS: BP 124/80
[2017-10-07 22:00] VITALS: BP 118/68
[2017-10-08 06:51] VITALS: BP 110/64
[2017-10-08 08:31] LABS: PT 16.2 SEC (9.4-12.5)
--- NOTE | 2017-10-08 08:49 | PN- Housestaff ---
Purvi BARBOUR,Claudia 10/08/17 0848: Subjective Follow-up For: Atrial fibrillation Heart failure with preserved ejection fraction Subtherapeutic INR CKD Tele-Events Since Last Visit: Atrial fibrillation with heart rate of 64-79, 2.1 second pause, PVCs Subjective: Patient was seen and examined today. Patient states that she continues to feel short of breath with walking and continues to have lower extremity swelling which is unchanged from the previous day. Patient denies any chest pain, palpitations, nausea/vomiting, fever/chills, dysuria/hematuria. No acute events overnight. Review of Systems Constitutional: Reports: no symptoms. Cardiovascular: Reports: see HPI. Respiratory: Reports: see HPI. Gastrointestinal: Reports: no symptoms. Genitourinary: Reports: no symptoms. Musculoskeletal: Reports: no symptoms. Objective Last 24 Hrs of Vital Signs/I&O Vital Signs Date Time Temp Pulse Resp B/P B/P Pulse O2 O2 Flow FiO2 Mean Ox Delivery Rate 10/08 0800 Nasal 2.5L Cannula 10/08 0651 97.3 86 18 110/64 99 Nasal Cannula 10/08 0000 Nasal 2.5L Cannula 10/07 2200 98.0 70 18 118/68 96 Nasal 2.5L Cannula 10/07 2153 77 118/68 10/07 1600 Nasal 2.5L Cannula 10/07 1420 98.2 61 20 124/80 97 Nasal 2.5L Cannula 10/07 1103 77 142/78 Intake & Output 10/08 1600 10/08 0800 10/08 0000 Intake Total 110 320 Output Total 250 650 Balance -250 -540 320 Intake, IV 10 Intake, Oral 100 320 Output, Urine 250 650 Patient 243 lb Weight Weight Bed scale Measurement Method Physical Exam General Appearance: Alert, Oriented X3, Cooperative, No Acute Distress Skin Temp/Moisture Exam: Warm/Dry HEENT: Atraumatic, Mucous Membr. moist/pink Cardiovascular: Normal S1, Normal S2, irregular rate Lungs: Clear to Auscultation, Normal Air Movement Abdomen: Normal Bowel Sounds, Soft, No Tenderness Extremities: No Clubbing, No Cyanosis, No Tenderness/Swelling, bilateral lower extremity pitting edema up to knees 2 to 3+ Current Medications: Current Medications Sig/Cole Start time Last Medication Dose Route Stop Time Status Admin Acetaminophen 650 MG Q6P PRN 10/04 1800 AC 10/08 PO 0248 Atorvastatin Calcium 40 MG 1700 10/04 1745 AC 10/07 PO 1640 Calcitriol 0.25 MCG DAILY 10/04 1737 AC 10/08 PO 0909 Diltiazem HCl 240 MG DAILY 10/04 1737 AC 10/08 PO 0911 Febuxostat 40 MG DAILY 10/05 1000 AC 10/08 PO 0909 Ferrous Sulfate 325 MG TID 10/04 2200 AC 10/08 PO 0911 Furosemide 40 MG 7:30 AM, & 4:30 PM 10/05 0730 AC 10/08 IV 0706 Insulin Aspart 0 TIDAC 10/05 0800 AC 10/07 SC 1651 Insulin Aspart 0 AT BEDTIME 10/04 220 AC SC Metolazone 5 MG 0700 10/07 0700 DC 10/08 PO 10/08 0800 0630 Metoprolol Tartrate 37.5 MG BID 10/05 2200 AC 10/08 PO 0910 Morphine Sulfate 2 MG Q4P PRN 10/04 1800 AC 10/06 IV 0934 Potassium Chloride 20 MEQ DAILY 10/07 1524 AC 10/08 PO 0911 Potassium Chloride 20 MEQ DAILY 10/07 1023 DC PO Sevelamer Carbonate 1,600 MG WM 10/05 0800 AC 10/08 PO 0758 Sodium Bicarbonate 1,300 MG BID 10/04 220 AC 10/08 PO 0911 Warfarin Sodium 5 MG COUMADIN 1700 ONE 10/07 1700 DC 10/07 PO 10/07 1701 1641 Last 24 Hrs of Lab/Rayshawn Results Last 24 Hrs of Labs/Mics: Laboratory Tests 10/08/17 0615: Anion Gap 11, Estimated GFR 14 L, BUN/Creatinine Ratio 22.4, PT 16.2 H, INR 1.55 H Assessment/Plan Assessment: Patient is a 72-year-old female with past medical history significant for paroxysmal atrial fibrillation status post cardioversion 2 on coumadin, diabetes not on any medications currently, diabetic and hypertensive 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 A/P 1. Shortness of breath; likely 2/2 HFpEF(ejection fraction of 60% on recent echocardiogram). - Continue IV lasix 40mg BID, patient received metalazone this am. Repeat creatinine is stable at 3.3. Repeat BEP tomorrow AM. Reassess for need for metalazone tomorrow AM. Not added at this time. Will continue diuresing with IV lasix per cardiology. - nephrology input pending. - Continue fluid restriction to 1000 mL. - Strict intake and output charting. - Daily weights - Supplemental O2 as needed to keep O2 sats above 90%. - Appreciate cardiology recommendations. - Nephrology consult - with Dr. Stevens for chronic kidney disease. Recommendations pending. 2. Chronic medical conditions. - Continue home medications. - NovoLog sliding scale. - INR of 1.55 today, one dose of Coumadin 5 mg given. - Daily INR and dose coumadin as needed DVT Prophylaxis: on coumadin Code: Full code Diet: Diabetic diet Problem List: 1. Heart failure with preserved ejection fraction 2. Afib 3. Chronic kidney disease (CKD) Pain Ratin Pain Location: n/a Pain Goal: Remain pain free Pain Plan: n/a Tomorrow's Labs & Rationales: bep - on lasix inr- coumadin Bina BARBOUR,Amir 10/08/17 0940: Attending MD Review Statement Attending Statement Attending MD Statement: examined this patient, discuss w/resident/PA/PRINT CONTROLLER, agreed w/resident/PA/PRINT CONTROLLER, reviewed EMR data (avail), discussed with nursing Attending Assessment/Plan: Pt was seen and evalauted. Chart reviewed. Currently reports improvement in her SOB but feels fatigue. She has baseline O2 requirement and reports following strict diet at home. VSS. Lungs are CTAB -- titrate coumadin for targeted INR. --Cont diurectics, daily weights, strict I&Os --replete K --f/u in INR and lytes in am --appreciate cards recss --agree with Renal consult --rest of the plan as per resident's not
--- NOTE | 2017-10-08 14:05 | PN- Cardiology ---
Subjective Subjective: The patient is sitting at her bedside chair, talking to her family. She seems to feel somewhat better today. She tolerated metolazone yesterday with minimal change in her renal function. Metallic on also given today. Objective Vital Signs and I&Os Vital Signs Date Time Temp Pulse Resp B/P B/P Pulse O2 O2 Flow FiO2 Mean Ox Delivery Rate 10/08 0910 83 110/64 10/08 0800 Nasal 2.5L Cannula 10/08 0651 97.3 86 18 110/64 99 Nasal Cannula 10/08 0000 Nasal 2.5L Cannula 10/07 2200 98.0 70 18 118/68 96 Nasal 2.5L Cannula 10/07 2153 77 118/68 10/07 1600 Nasal 2.5L Cannula 10/07 1420 98.2 61 20 124/80 97 Nasal 2.5L Cannula Intake & Output 10/08 1600 10/08 0800 10/08 0000 10/07 1600 10/07 0800 10/07 0000 Intake Total 110 320 740 110 514 Output Total 550 650 875 550 300 Balance -550 -540 320 -135 -440 214 Intake, IV 10 10 14 Intake, Oral 100 320 740 100 500 Output, Urine 550 650 875 550 300 Patient 243 lb Weight Weight Bed scale Measurement Method Physical Exam: General Appearance: Alert, Oriented X3, Cooperative Skin: No Rashes, No Breakdown Cardiovascular: Normal S1, Normal S2, Irregular, 1 to 2/6 systolic murmur, soft right carotid bruit Lungs: decreased breath sounds Abdomen: Normal Bowel Sounds, Soft, No Tenderness Extremities: No Clubbing, No Cyanosis, +1-2 pitting edema Current Medications: Current Medications Sig/Cole Start time Last Medication Dose Route Stop Time Status Admin Acetaminophen 650 MG .STK-MED ONE 10/08 0245 DC PO 10/08 0246 Acetaminophen 650 MG .STK-MED ONE 10/08 0245 DC PO 10/08 0246 Acetaminophen 650 MG Q6P PRN 10/04 1800 AC 10/08 PO 0248 Atorvastatin Calcium 40 MG 1700 10/04 1745 AC 10/07 PO 1640 Calcitriol 0.25 MCG DAILY 10/04 1737 AC 10/08 PO 0909 Diltiazem HCl 240 MG DAILY 10/04 1737 AC 10/08 PO 0911 Febuxostat 40 MG DAILY 10/05 1000 AC 10/08 PO 0909 Ferrous Sulfate 325 MG TID 10/04 220 AC 10/08 PO 0911 Furosemide 40 MG 7:30 AM, & 4:30 PM 10/05 0730 AC 10/08 IV 0706 Insulin Aspart 0 TIDAC 10/05 0800 AC 10/08 SC 1221 Insulin Aspart 0 AT BEDTIME 10/04 2200 AC SC Metolazone 5 MG 0700 10/07 0700 DC 10/08 PO 10/08 0800 0630 Metoprolol Tartrate 37.5 MG BID 10/05 220 AC 10/08 PO 0910 Morphine Sulfate 2 MG Q4P PRN 10/04 1800 AC 10/06 IV 0934 Potassium Chloride 20 MEQ DAILY 10/07 1524 AC 10/08 PO 0911 Potassium Chloride 20 MEQ DAILY 10/07 1023 DC PO Sevelamer Carbonate 1,600 MG WM 10/05 0800 AC 10/08 PO 1221 Sodium Bicarbonate 1,300 MG BID 10/04 2199 AC 10/08 PO 0911 Warfarin Sodium 5 MG COUMADIN 1700 ONE 10/07 1700 DC 10/07 PO 10/07 1701 1641 Results Last 48 Hrs of Labs/Mics: Laboratory Tests 10/08/17 0615: Anion Gap 11, Estimated GFR 14 L, BUN/Creatinine Ratio 22.4, PT 16.2 H, INR 1.55 H 10/07/17 0600: Anion Gap 10, Estimated GFR 14 L, BUN/Creatinine Ratio 21.8, PT 14.7 H, INR 1.40 H Assessment/Plan Assessment/Plan Assessment: 1. Acute on chronic HFpEF 2. Paxil atrial fibrillation with rapid ventricular rate 3. Hypertension 4. Hyperlipidemia 5. Chronic renal insufficiency, status post right upper extremity AV fistula 6. History of diabetes 7. Chronic anemia Recommendations: -The patient has continue to diurese very slowly. However, with metolazone yesterday, she has diuresed about 1000 mL -Continue as recommended by Dr. Aponte. Metolazone given again today. Continue IV Lasix. -Continue to monitor her intakes, outputs, and daily weights. -Follow-up metabolic parameters in the morning. -Depending on course over the next 24 hours, reassess need for further metolazone tomorrow. -As recommended by Dr. Aponte, consider nephrology input as well. Continue telemetry? Yes
[2017-10-08 14:29] VITALS: BP 122/72
--- NOTE | 2017-10-08 18:48 | Cons- Nephrology ---
General Information and HPI Consulting Request Date of Consult: 10/08/17 Requested By: Katarina BARBOUR,Akira Reason for Consult: Chronic kidney disease with intractable edema Source of Information: patient, old records Exam Limitations: no limitations History of Present Illness: This 72-year-old woman has a history of chronic kidney disease stage IV bordering on stage V for a number of years. She was followed by in [place]. She had been hospitalized here at [facility] in January and was referred to a rehabilitation facility in [place]. At that point she was massively fluid overloaded and an attempt at dialysis initiation was made. She was having problems with her right upper arm aVF that needed to be exteriorized and dialysis needed to be discontinued. It was found by Dr. Sol Garcia that she was responding well to an intensified diuretic regimen and dialysis was discontinued successfully. She was then [facility] specifically Narciso Chand MD then Jay Chang MD for continued care since she had relocated permanently to [place]. The patient was most recently seen by Jay Chang MD on 08/23/2017. Her serum creatinine has since last summer settled to be in the low to mid 3.0's. This is where she remains now. She is now readmitted with increasing shortness of breath after being hospitalized for rapid A. fib as well as a fluid collection on the left leg requiring stepped incision and drainage. She was discharged in early September. She reports going home and being told that she needed oxygen. He does observe that her weight when she saw Jay Chang MD was 222 pounds. Her weight today, is 243 pounds. This is with a bed scale. When looking at the weights obtained over the past month, she has been ranging anywhere from 233-243 pounds. At this point, she is concerned that she will eventually need dialysis and needed fairly soon. Allergies/Medications Allergies: Coded Allergies: sitagliptin (From [facility]) (Severe, THROAT CLOSURE 02/05/17) Home Med List: Calcitriol 0.25 MCG CAPSULE 1 CAP PO DAILY SUPPLEMENT (Reported) Diltiazem HCl (Cardizem Cd) 240 MG CAP.ER.24H 240 MG PO DAILY HEART HEALTH . Febuxostat (Uloric) 40 MG TABLET 1 TAB PO DAILY GOUT (Reported) Ferrous Sulfate 325 MG (65 MG IRON) TABLET 1 TAB PO TID Iron storage . Furosemide (Lasix) 40 MG TABLET 40 MG PO DAILY Leg swelling . Insulin Aspart (Niacinamide) (Fiasp 100 Unit/Ml Flextouch) 100 UNIT/ML (3 ML) INSULN.PEN 0 SC TIDAC blood sugar .Please administer as follow: Metoprolol Tartrate 25 MG TABLET 37.5 MG PO BID HEART HEALTH . Rosuvastatin Calcium (Crestor) 10 MG TABLET 1 TAB PO DAILY HYPERLIPIDEMIA Sevelamer Carbonate (Renvela) 800 MG TABLET 2 TAB PO WM CKD Sodium Bicarbonate 325 MG TABLET 1,300 MG PO BID KIDNEY HEALTH . Warfarin Sodium (Coumadin) 5 MG TABLET 1 TAB PO DAILY BLOOD THINNER .. Current Medications: Current Medications Sig/Cole Start time Last Medication Dose Route Stop Time Status Admin Acetaminophen 650 MG .STK-MED ONE 10/08 024 DC PO 10/08 0246 Acetaminophen 650 MG .STK-MED ONE 10/08 0245 DC PO 10/08 0246 Acetaminophen 650 MG Q6P PRN 10/04 1800 AC 10/08 PO 0248 Atorvastatin Calcium 40 MG 17010/04 1745 AC 10/08 PO 1638 Calcitriol 0.25 MCG DAILY 10/04 1737 AC 10/08 PO 0909 Diltiazem HCl 240 MG DAILY 10/04 1737 AC 10/08 PO 0911 Febuxostat 40 MG DAILY 10/05 1000 AC 10/08 PO 0909 Ferrous Sulfate 325 MG TID 10/04 2199 AC 10/08 PO 1638 Furosemide 40 MG 7:30 AM, & 4:30 PM 10/05 0730 AC 10/08 IV 1638 Insulin Aspart 0 TIDAC 10/05 0800 AC 10/08 SC 1708 Insulin Aspart 0 AT BEDTIME 10/04 2199 AC SC Metolazone 5 MG 0700 10/07 0700 DC 10/08 PO 10/08 0800 0630 Metoprolol Tartrate 37.5 MG BID 10/05 220 AC 10/08 PO 0910 Morphine Sulfate 2 MG Q4P PRN 10/04 1800 AC 10/06 IV 0934 Potassium Chloride 20 MEQ DAILY 10/07 1524 AC 10/08 PO 0911 Sevelamer Carbonate 1,600 MG WM 10/05 0800 AC 10/08 PO 1638 Sodium Bicarbonate 1,300 MG BID 10/04 220 AC 10/08 PO 0911 Warfarin Sodium 5 MG COUMADIN 1700 ONE 10/08 1730 DC 10/08 PO 10/08 1731 1823 Review of Systems Review of Systems Constitutional: Reports: weakness. Denies: chills, diaphoresis, fever. EENTM: Denies: blurred vision, double vision, visual changes. Cardiovascular: Reports: edema, orthopena, peripheral edema. Denies: chest pain, palpitations. Respiratory: Reports: orthopnea, short of breath. GI: Reports: distention. Denies: abdominal pain, bloating, constipation, diarrhea. Genitourinary: Denies: dysuria, frequency, hematuria, hesitation. Skin: Denies: cysts, change in skin color, dryness, erythema. Hematologic/Endocrine: Denies: bruising, bleeding, polyuria. Past History Travel History Traveled to [place] past 21 day No Medical History Blood Transfusion Hx: Yes Neurological: NONE EENT: NONE Cardiovascular: AFIB (refuses/ not started on antico), aflutter, hypertension Respiratory: NONE Gastrointestinal: NONE Hepatic: NONE Renal: chronic kidney disease, CKD biopsy-proven diabetic/hypertensive nephropathy R.ARM AVF Musculoskeletal: gout Psychiatric: NONE Endocrine: diabetes, obesity, she reports that her diabetes has been referred for roughly 10 years. 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 Home Smoking Status: Never Smoked ETOH Use: denies use Illicit Drug Use: denies illicit drug use Exam & Diagnostic Data Vital Signs and I&O Vital Signs Date Time Temp Pulse Resp B/P B/P Pulse O2 O2 Flow FiO2 Mean Ox Delivery Rate 10/08 1600 Nasal 2.0L Cannula 10/08 1429 98.1 85 20 122/72 96 Nasal Cannula 10/08 0910 83 110/64 10/08 0800 Nasal 2.5L Cannula 10/08 0651 97.3 86 18 110/64 99 Nasal Cannula 10/08 0000 Nasal 2.5L Cannula 10/07 2200 98.0 70 18 118/68 96 Nasal 2.5L Cannula 10/07 2153 77 118/68 Intake & Output 10/08 04010/06 040 Intake Total 710 320 850 514 600 558 Output Total 1650 1425 300 550 450 Balance -940 320 -575 214 50 108 Intake, IV 10 10 14 Intake, Oral 700 320 840 500 600 558 Output, Urine 1650 1425 300 550 450 Patient 243 lb 248 lb Weight Weight Bed scale Bed scale Measurement Method Physical Exam General Appearance: well developed/nourished, no apparent distress, alert, awake , comfortable, obese Head: atraumatic, normal appearance Eyes: Bilateral: PERRL, EOMI, pale conjunctivae. Neck: JVD, trachea mid line, no midline tenderness Respiratory: decreased breath sounds, no rales Cardiovascular: edema Gastrointestinal: normal bowel sounds, soft, distention, no hepatosplenomegaly, no bruits Back: normal inspection, no vertebral tenderness Extremities: edema up to her thigh mostly concentrated in the lower leg also with some sacral, well-functioning right upper arm aVF is somewhat torturous on palpation. 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4 H INR (0.90 - 1.19) 1.55 H 1.40 H 1.28 H Assessment/Plan Assessment/Recommendations Assessment: 1. chronic kidney disease stage 4/5. Using the EGFR to estimate this woman's actual renal function is fraught with a number of difficulties. She is a rather large woman. I very much doubt that a creatinine of 3.3 represents an EGFR of less than 15 mL/m. She does not appear to be one would be muscle wasting. The primary issue here however is her volume status. She denies any dietary indiscretion. I agree completely with maintaining this woman on metolazone and furosemide IV. She had been on torsemide as an outpatient. 2. Diabetes mellitus 3. only hypertension 4 atrial fibrillation 5. Obesity 6. Gout 7. Hypertension. Note well, she was on hydralazine as an outpatient. Recommendations: 1. Would weigh the patient on a consistent scale rather than the bed scale weight chair scale or is standing scale would be preferable. 2. I would have a low threshold to increasing her dose from 5 mg 10 mg a day of metolazone. If there are concerns with regards to affecting her kidney function , it could be written for as 10 mg daily 3. Would also have little threshold for increasing the furosemide to 80 mg twice a day. When she departs for home, I would've no objection to changing her back to torsemide. She was on 20 mg per day according to Dr. Chang's note. This is a very low dose. Suspect she will need to be on 40 mg of day of torsemide along with 2.5 or 5 or higher of metolazone. 3. Would also suggest perhaps checking a spot urine protein to creatinine ratio. It may be that her seemingly sudden need for increasing diuresis could reflect dietary indiscretion which she denies or it could reflect increasing proteinuria. It has been observed that when the degree of proteinuria reaches 10 g per day that volume control becomes very problematic. 4. Would also make sure that she is on a 2 g sodium diet. 5. I'm not always in favor of a fluid restriction in someone who is not on dialysis or with profound hepatic failure. Therefore I would not start one yet. In terms of goals, it may be reasonable to use the 220 pounds as a reasonable barometer as to where she needs to be. It is generally said that one needs to eat 3000 extra calories in order to gain a pound. For her to have gained 20 pounds in 6 weeks in terms of real body mass she should have a fairly prodigious appetite.
[2017-10-08 20:38] VITALS: BP 112/60
[2017-10-09 06:41] VITALS: BP 120/70
--- NOTE | 2017-10-09 07:12 | PN- Housestaff ---
Lorelei BARBOUR,Sandra 10/09/17 0712: Subjective Follow-up For: Diastolic heart failure Atrial fibrillation on Coumadin Tele-Events Since Last Visit: Atrial fibrillation Heart rate 77-85 Subjective: Patient ports improvement in her shortness of breath and leg swelling since her admission to the hospital. Denies any chest pain, palpitations, lightheadedness /dizziness over the interview with her. Review of Systems Constitutional: Reports: no symptoms. EENTM: Reports: no symptoms. Cardiovascular: Reports: orthopena, peripheral edema. Respiratory: Reports: short of breath. Gastrointestinal: Reports: no symptoms. Genitourinary: Reports: no symptoms. Musculoskeletal: Reports: no symptoms. Skin: Reports: no symptoms. Neurological/Psychological: Reports: no symptoms. Hematologic/Endocrine: Reports: no symptoms. Immunologic/Allergic: Reports: no symptoms. Objective Last 24 Hrs of Vital Signs/I&O Vital Signs Date Time Temp Pulse Resp B/P B/P Pulse O2 O2 Flow FiO2 Mean Ox Delivery Rate 10/09 1335 97.7 79 2 110/60 94 Nasal 2.0L Cannula 10/09 1326 Nasal 2.0L Cannula 10/09 0806 104 120/70 10/09 0800 97 Nasal 2.0L Cannula 10/09 0641 98.2 104 24 120/70 96 Nasal 2.0L Cannula 10/08 2053 86 112/60 10/085 98 Nasal 2.0L Cannula 10/088 98.2 86 18 112/60 98 Nasal 2.0L Cannula 10/08 1600 Nasal 2.0L Cannula Intake & Output 10/09 1600 10/09 0800 10/09 0000 Intake Total 220 Output Total 700 500 Balance -700 -280 Intake, Oral 220 Output, Urine 700 500 Patient 246 lb Weight Weight Chair scale Measurement Method Physical Exam General Appearance: Alert, Oriented X3, Cooperative, No Acute Distress Skin: No Rashes, No Breakdown Cardiovascular: Normal S1, Normal S2, Irregular Lungs: decreased breath sounds Extremities: No Clubbing, No Cyanosis, +2 pitting edema bilaterally Current Medications: Current Medications Sig/Cole Start time Last Medication Dose Route Stop Time Status Admin Acetaminophen 650 MG Q6P PRN 10/04 1800 AC 10/08 PO 0248 Atorvastatin Calcium 40 MG 1700 10/04 1745 AC 10/08 PO 1638 Calcitriol 0.25 MCG DAILY 10/04 1737 AC 10/09 PO 0804 Diltiazem HCl 240 MG DAILY 10/04 1737 AC 10/09 PO 0804 Febuxostat 40 MG DAILY 10/05 1000 AC 10/09 PO 0804 Ferrous Sulfate 325 MG TID 10/04 220 AC 10/09 PO 1104 Furosemide 80 MG 7:30 AM, & 4:30 PM 10/09 1630 UNVr IV Furosemide 40 MG 7:30 AM, & 4:30 PM 10/05 0730 DC 10/09 IV 0805 Insulin Aspart 0 TIDAC 10/05 0800 AC 10/09 SC 1159 Insulin Aspart 0 AT BEDTIME 10/04 2199 AC SC Metolazone 10 MG 1530 10/09 1530 AC PO 10/11 1531 Metolazone 10 MG DAILY 10/09 1500 UNVr PO 10/11 1001 Metoprolol Tartrate 37.5 MG BID 10/05 2199 AC 10/09 PO 0806 Morphine Sulfate 2 MG Q4P PRN 10/09 0915 AC IV Morphine Sulfate 2 MG Q4P PRN 10/04 1800 DC 10/06 IV 0934 Potassium Chloride 20 MEQ ONCE ONE 10/08 1915 DC 10/08 PO 10/08 1916 2052 Potassium Chloride 20 MEQ DAILY 10/07 1524 AC 10/09 PO 0804 Sevelamer Carbonate 1,600 MG WM 10/05 08 AC 10/09 PO 1159 Sodium Bicarbonate 1,300 MG BID 10/04 220 AC 10/09 PO 0805 Warfarin Sodium 5 MG COUMADIN 1700 ONE 10/08 1730 DC 10/08 PO 10/08 1731 1823 Last 24 Hrs of Lab/Rayshawn Results Last 24 Hrs of Labs/Mics: Laboratory Tests 10/09/17 1005: Ur Random Creatinine 27.8 10/09/17 0649: Anion Gap 12, Estimated GFR 14 L, BUN/Creatinine Ratio 23.8, Magnesium 1.9, PT 17.8 H, INR 1.70 H 10/09/17 0325: Ur Random Creatinine 55.1, U Random Total Protein 134 H, Protein/Creatinin Ratio 2.4 H Assessment/Plan Assessment: Patient is a 72-year-old female with past medical history significant for paroxysmal atrial fibrillation status post cardioversion 2 on coumadin, diabetes not on any medications currently, diabetic and hypertensive 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 A/P 1. Shortness of breath; likely 2/2 HFpEF(ejection fraction of 60% on recent echocardiogram). - Lasix increased to 80 mg IV twice a day per nephrology. We'll also give metolazone 10 mg 60 minutes before IV Lasix. - Continue fluid restriction to 1000 mL. - Strict intake and output charting. Negative fluid balance of 1220 overnight. - Daily weights. - Supplemental O2 as needed to keep O2 sats above 90%. 2. Chronic medical conditions. - Continue home medications. - NovoLog sliding scale. - INR of 1.70 today, one dose of Coumadin 5 mg given. - Daily INR and dose coumadin as needed DVT Prophylaxis: on coumadin Code: Full code Diet: Diabetic diet/ fluid restriction to 1000ml. Problem List: 1. Heart failure with preserved ejection fraction 2. Pulmonary edema 3. Leg swelling Pain Ratin Pain Location: None Pain Goal: Remain pain free Pain Plan: None Tomorrow's Labs & Rationales: BEP(end stage CKD, on lasix) Richard Galarza MD 10/09/17 1137: Attending MD Review Statement Attending Statement Attending MD Statement: examined this patient, discuss w/resident/PA/FORENSIC SPECIALIST, agreed w/resident/PA/FORENSIC SPECIALIST, reviewed EMR data (avail), discussed with nursing, discussed with case mgmt, amended to note Attending Assessment/Plan: Patient seen and examined. Resting comfortably in bed and not in any acute distress. No issues overnight. No events on telemetry monitoring. She reports feeling better compared to presentation. Review of her records shows that she has not had any significant weight loss per nursing documentation, despite having negative fluid balance over the past 48 hours. She is maintaining saturation on 2 L of oxygen. It is noted that she was only recently started on oxygen supplementation during the prior admission. On examination she has diminished breath sounds bilaterally and bilateral pedal edema 1+. Chest x-ray [facility] 3 days ago showed persistent pulmonary edema and worsening right-sided pleural effusion. Recommendations: -Continue diuresis with Lasix IV. -Increased dose of metolazone to 10 mg today. -Repeat chest x-ray tomorrow. -Wean off oxygen supplementation as tolerated. -Creatinine level is stable. Continue to monitor BMP closely. -Patient is stage IV-V chronic kidney disease. She actually had a fistula placed in the past with plans to initiate hemodialysis long-term. It appears she had problems with that fistula and was able to be managed medically. It is unclear how long she can continue with this. She was discharged in August after being managed for acute on chronic heart failure. She was again recently discharged in September. She is now oxygen dependent and requiring significant amount of diuresis to achieve you for anemia. Despite diuresis she is also developing pleural effusions. -Follow-up chest x-ray tomorrow following the increased dose of metolazone today and continued Lasix 40 mg IV twice daily. If her effusions persist, recommend further discussions with the nephrology service regarding optimal therapy of her volume status moving forward. She is fortunately not acidotic and has no significant electrolyte abnormalities.
[2017-10-09 08:15] LABS: PT 17.8 SEC (9.4-12.5)
--- NOTE | 2017-10-09 11:41 | PN- Nephrology ---
Assessment/Plan Nephrology Assessment: 1. chronic kidney disease stage 4/5. Renal function main stable 2. Diabetes mellitus 3. Volume overload. Her weight did go up however this may be a difference in scale. 4 atrial fibrillation 5. Obesity 6. Gout 7. Hypertension. Note well, she was on hydralazine as an outpatient. Suggestion: 1. Maintain metolazone 10 mg daily 3, 60 minutes before the administration of furosemide 2. Increase the furosemide to 80 mg IV every 12 hours 3. Metolazone only needs to be administered once a day. Subjective Subjective: Patient sitting up. We discussed increasing her diuresis. Objective Vital Signs and I&Os Vital Signs Date Time Temp Pulse Resp B/P B/P Pulse O2 O2 Flow FiO2 Mean Ox Delivery Rate 10/09 0806 104 120/70 10/09 0800 97 Nasal 2.0L Cannula 10/09 0641 98.2 104 24 12070 96 Nasal 2.0L Cannula 10/08 2053 86 112/60 10/08 2045 98 Nasal 2.0L Cannula 10/08 2037 98.2 86 18 112/60 98 Nasal 2.0L Cannula 10/08 1600 Nasal 2.0L Cannula 10/08 1429 98.1 85 20 122/72 96 Nasal Cannula Intake & Output 10/09 1600 10/09 0400 10/08 1600 10/08 0400 10/07 1600 10/07 0400 Intake Total 220 710 320 850 514 Output Total 885 402 7472 1425 300 Balance -700 -280 -940 320 -575 214 Intake, IV 10 10 14 Intake, Oral 220 700 320 840 500 Output, Urine 541 903 4373 1425 300 Patient 246 lb 243 lb Weight Weight Chair scale Bed scale Measurement Method Current Medications: Current Medications Sig/Cole Start time Last Medication Dose Route Stop Time Status Admin Acetaminophen 650 MG Q6P PRN 10/04 1800 AC 10/08 PO 0248 Atorvastatin Calcium 40 MG 1700 10/04 1745 AC 10/08 PO 1638 Calcitriol 0.25 MCG DAILY 10/04 173 AC 10/09 PO 0804 Diltiazem HCl 240 MG DAILY 10/04 173 AC 10/09 PO 0804 Febuxostat 40 MG DAILY 10/05 1000 AC 10/09 PO 0804 Ferrous Sulfate 325 MG TID 10/04 22010/09 PO 1104 Furosemide 40 MG 7:30 AM, & 4:30 PM 10/05 0730 AC 10/09 IV 0805 Insulin Aspart 0 TIDAC 10/05 08 AC 10/09 SC 0805 Insulin Aspart 0 AT BEDTIME 10/04 2199 AC SC Metolazone 10 MG 1530 10/09 1530 AC PO 10/11 1531 Metoprolol Tartrate 37.5 MG BID 10/05 2199 AC 10/09 PO 0806 Morphine Sulfate 2 MG Q4P PRN 10/09 0915 AC IV Morphine Sulfate 2 MG Q4P PRN 10/04 1800 DC 10/06 IV 0934 Potassium Chloride 20 MEQ ONCE ONE 10/08 1914 DC 10/08 PO 10/08 Potassium Chloride 20 MEQ DAILY 10/07 1524 AC 10/09 PO 0804 Sevelamer Carbonate 1,600 MG WM 10/05 08 AC 10/09 PO 0804 Sodium Bicarbonate 1,300 MG BID 10/04 2199 AC 10/09 PO 0805 Warfarin Sodium 5 MG COUMADIN 1700 ONE 10/08 1730 DC 10/08 PO 10/08 1731 1823 Results Pertinent Lab Results: Laboratory Tests 10/09 10/09 10/09 10/08 10/07 1005 0649 0325 0615 0600 Chemistry Sodium (137 - 145 mmol/L) 143 144 143 Potassium (3.5 - 5.1 mmol/L) 4.1 3.8 3.8 Chloride (98 - 107 mmol/L) 101 102 103 Carbon Dioxide (22 - 30 mmol/L) 30 31 H 30 Anion Gap (5 - 16) 12 11 10 BUN (7 - 17 mg/dL) 76 H 74 H 72 H Creatinine (0.5 - 1.0 mg/dL) 3.2 H 3.3 H 3.3 H Estimated GFR (>60 ml/min) 14 L 14 L 14 L BUN/Creatinine Ratio (7 - 25 %) 23.8 22.4 21.8 Magnesium (1.6 - 2.3 mg/dL) 1.9 Coagulation PT (9.4 - 12.5 SEC) 17.8 H 16.2 H 14.7 H INR (0.90 - 1.19) 1.70 H 1.55 H 1.40 H Urines Ur Random Creatinine (mg/dL) 27.8 55.1 U Random Total Protein (0 - 12 mg/dL) 134 H Protein/Creatinin Ratio (< 0.2) 2.4 H
--- NOTE | 2017-10-09 11:48 | PN- Cardiology ---
Subjective Subjective: Good diuresis over the past 24 hours. Creatinine down slightly. Objective Vital Signs and I&Os Vital Signs Date Time Temp Pulse Resp B/P B/P Pulse O2 O2 Flow FiO2 Mean Ox Delivery Rate 10/09 0806 104 120/70 10/09 0800 97 Nasal 2.0L Cannula 10/09 0641 98.2 104 24 120/70 96 Nasal 2.0L Cannula 10/08 2053 86 112/60 10/085 98 Nasal 2.0L Cannula 10/088 98.2 86 18 112/60 98 Nasal 2.0L Cannula 10/08 1600 Nasal 2.0L Cannula 10/08 1429 98.1 85 20 122/72 96 Nasal Cannula Intake & Output 10/09 1600 10/09 0800 10/09 0000 10/08 1600 10/08 0800 10/08 0000 Intake Total 220 600 110 320 Output Total 713 136 0279 650 Balance -700 -280 -400 -540 320 Intake, IV 10 Intake, Oral 220 600 100 320 Output, Urine 055 620 7417 650 Patient 246 lb 243 lb Weight Weight Chair scale Bed scale Measurement Method Physical Exam: Well-developed, overweight elderly female in no acute distress. Vital signs: See above. HEENT: Normocephalic, atraumatic, EOMI, slightly dry mucous membranes. Neck: No JVD, right carotid bruit vs transmitted systolic murmur. Lungs: Decreased breath sounds otherwise clear. Heart: S1, S2 (irregularly, irregular) with soft (grade 1-2/6) systolic murmur. Abdomen: Soft, nontender, positive bowel sounds. Extremities: 1-2+ bilateral lower extremity edema. Assessment/Plan Assessment/Plan [id number]-f w/ hx gout, HLD, HTN, DM, CKD s/p RUE AV fistula 06/2016 w/o use necessity, ch anemia on RITO, & PAF s/p electrical CV following a CARI ~2015 w/ recurrence and successful antiarrhythmic Rx w/ chemical CV ~2016 who was recently hospitalized (08/23-09/01/2017) for AF w/ RVR and who gradually improved w/ standard therapy, but who became progressively SOB w/ wt gain at home over the past few weeks despite compliance w/ her diet & medical regimen and who was again found to be in AF w/ RVR & HFpEF. Feels improved following diuresis and creatinine down slightly. Continue with present regimen. Continue telemetry? Yes
[2017-10-09 13:35] VITALS: BP 110/60
--- NOTE | 2017-10-09 16:30 | Patient Discharge Instructions ---
Discharge Instructions General Discharge Information You were seen/treated for: Heart failure with preserved ejection fraction Atrial fibrillation Watch for these problems: This return to the ER in case of any worsening shortness of breath, chest pain, palpitations, worsening lower extremity edema or lightheadedness/dizziness. Special Instructions: 1. Please follow-up with your PCP within a week after discharge. 2. Please follow-up with the service and repair supervisor within a week after discharge. 3. Please follow-up with your marine firer within a week after discharge. 4. Please repeat your BEP 2 times per week to monitor the potassium levels and send the results to your PCP and marine firer. 5. Left foot wound to be cleansed with normal saline followed by silver alginate , followed by kerlix wrap daily and PRN. Diet Continue normal diet: Yes Recommended Diet: Heart Healthy, Renal Dialysis Activity Full Activity/No Limits: Yes Activity Self Limited: Yes (as tolerated) Acute Coronary Syndrome Inclusion Criteria At DC or during hospital stay patient has or had the following: ACS DIAGNOSIS No Discharge Core Measures Meds if any: Prescribed or Continued at Discharge Meds if any: NOT Prescribed or Continued at Discharge Congestive Heart Failure Inclusion Criteria At DC or during hospital stay patient has or had the following: CHF DIAGNOSIS Yes Discharge Core Measures Meds if any: Prescribed or Continued at Discharge Meds if any: NOT Prescribed or Continued at Discharge Cerebrovascular accident Inclusion Criteria At DC or during hospital stay patient has or had the following: CVA/TIA Diagnosis No Discharge Core Measures Meds if any: Prescribed or Continued at Discharge Meds if any: NOT Prescribed or Continued at Discharge Venous thromboembolism Inclusion Criteria VTE Diagnosis No VTE Type NONE VTE Confirmed by (Test) NONE Discharge Core Measures - Per Current guidelines, there needs to be overlap - treatment for the first 5 days of Warfarin therapy. - If discharged on Warfarin prior to 5 days of - overlap therapy, the patient will need to be - assessed for post discharge needs including - *Post discharge parental anticoagulation - *Warfarin and/or parental anticoagulation education - *Follow up date to check INR post discharge At least 5 days overlap therapy as Inpatient No Meds if any: Prescribed or Continued at Discharge Note: Overlap Therapy is Warfarin and Anticoagulant Meds if any: NOT Prescribed or Continued at Discharge
[2017-10-09 22:22] VITALS: BP 152/62
[2017-10-10 06:05] VITALS: BP 138/68
--- NOTE | 2017-10-10 07:19 | PN- Housestaff ---
Lorelei BARBOUR,[facility] 10/10/17 0718: Subjective Follow-up For: Diastolic heart failure Atrial fibrillation on Coumadin Tele-Events Since Last Visit: Off Telemetry Subjective: Patient reports improvement in her symptoms since admission. No chest pain, palpitation, Fever/chills or overnight events. Review of Systems Constitutional: Reports: no symptoms. EENTM: Reports: no symptoms. Cardiovascular: Reports: orthopena, peripheral edema. Respiratory: Reports: short of breath. Gastrointestinal: Reports: no symptoms. Genitourinary: Reports: no symptoms. Musculoskeletal: Reports: no symptoms. Skin: Reports: no symptoms. Neurological/Psychological: Reports: no symptoms. Hematologic/Endocrine: Reports: no symptoms. Immunologic/Allergic: Reports: no symptoms. Objective Last 24 Hrs of Vital Signs/I&O Vital Signs Date Time Temp Pulse Resp B/P B/P Pulse O2 O2 Flow FiO2 Mean Ox Delivery Rate 10/10 1459 97.6 100 20 114/80 99 10/10 0806 108 138/68 10/10 0800 97 Nasal 2.0L Cannula 10/10 0605 98.0 108 20 138/68 97 Nasal Cannula 10/10 0000 Nasal 2.0L Cannula 10/09 2222 98.0 113 20 152/62 93 Nasal 2.0L Cannula 10/09 2118 152/62 Intake & Output 10/10 1600 10/10 0800 10/10 0000 Intake Total 470 200 Output Total 1300 650 550 Balance -830 -450 -550 Intake, IV 20 Intake, Oral 450 200 Output, Urine 1300 650 550 Patient 250 lb Weight Weight Bed scale Measurement Method Physical Exam General Appearance: Alert, Oriented X3, Cooperative Skin: No Rashes, No Breakdown Cardiovascular: Normal S1, Normal S2, Irregular Lungs: decreased breath sounds, Bilateral basilar crackles R>L Abdomen: Normal Bowel Sounds, Soft, No Tenderness Extremities: No Clubbing, No Cyanosis, +1 pitting edema Current Medications: Current Medications Sig/Cole Start time Last Medication Dose Route Stop Time Status Admin Acetaminophen 650 MG Q6P PRN 10/04 1800 AC 10/08 PO 0248 Atorvastatin Calcium 40 MG 1700 10/04 1745 AC 10/10 PO 1812 Calcitriol 0.25 MCG DAILY 10/11 1000 AC PO Calcitriol 0.25 MCG DAILY 10/04 1737 DC 10/10 PO 1120 Diltiazem HCl 240 MG DAILY 10/11 1000 AC PO Diltiazem HCl 240 MG DAILY 10/04 1737 DC 10/10 PO 0807 Febuxostat 40 MG DAILY 10/05 1000 AC 10/10 PO 0807 Ferrous Sulfate 325 MG TID 10/04 2200 AC 10/10 PO 1812 Furosemide 80 MG 7:30 AM, & 4:30 PM 10/09 1630 AC 10/10 IV 0806 Insulin Aspart 0 TIDAC 10/05 0800 AC 10/10 SC 1123 Insulin Aspart 0 AT BEDTIME 10/04 2200 AC SC Metolazone 10 MG 1530 10/09 1530 AC 10/10 PO 10/11 1531 1812 Metolazone 10 MG DAILY 10/09 1500 DC PO 10/11 1001 Metoprolol Tartrate 37.5 MG BID 10/05 2200 AC 10/10 PO 0806 Morphine Sulfate 2 MG Q4P PRN 10/09 0915 AC IV Patient Medication 1 ED ONE ONE 10/10 1515 DC Teaching ED 10/10 1516 Potassium Chloride 20 MEQ DAILY 10/07 1524 AC 10/10 PO 0807 Sevelamer Carbonate 1,600 MG WM 10/05 0800 AC 10/10 PO 1811 Sodium Bicarbonate 1,300 MG BID 10/04 2200 AC 10/10 PO 0812 Warfarin Sodium 5 MG COUMADIN 1700 ONE 10/10 1700 DC 10/10 PO 10/10 1701 1812 Last 24 Hrs of Lab/Rayshawn Results Last 24 Hrs of Labs/Mics: Laboratory Tests 10/10/17 0637: Anion Gap 10, Estimated GFR 13 L, BUN/Creatinine Ratio 24.3, Magnesium 1.8, PT 20.0 H, INR 1.92 H Assessment/Plan Assessment: Patient is a 72-year-old female with past medical history significant for paroxysmal atrial fibrillation status post cardioversion 2 on coumadin, diabetes not on any medications currently, diabetic and hypertensive 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 Problem List; HFpEF(ejection fraction of 60% on recent echocardiogram). Atrial Fibrillation On coumadin - Continue 80 mg IV twice a day per nephrology. We'll also give metolazone 10 mg 60 minutes before IV Lasix x 3 days.(day 2) - Continue fluid restriction to 1000 mL. - Strict intake and output charting. Negative fluid balance of 2L yesterday and 450 overnight. - Daily weights. - Supplemental O2 as needed to keep O2 sats above 90%. - INR of 1.92 today, one dose of Coumadin 5 mg given. - Daily INR and dose coumadin as needed - NovoLog sliding scale. - Continue rest of home medications. DVT Prophylaxis: on coumadin Code: Full code Diet: Diabetic diet/ fluid restriction to 1000ml. Problem List: 1. Afib 2. Heart failure with preserved ejection fraction Pain Ratin Pain Location: None Pain Goal: Remain pain free Pain Plan: None Tomorrow's Labs & Rationales: BEP(On IV lasix and metolazone with Hx of CKD) Richard Galarza MD 10/10/17 1033: Attending MD Review Statement Attending Statement Attending MD Statement: examined this patient, discuss w/resident/PA/ORGAN TUNER, agreed w/resident/PA/ORGAN TUNER, reviewed EMR data (avail), discussed with nursing, discussed with case mgmt, amended to note Attending Assessment/Plan: Patient seen and examined. Lying comfortably in bed not in acute distress. No issues overnight reported by staff. She reports feeling somewhat better today. Metolazone dose was increased yesterday. Her Lasix dose was also increased by the nephrology service yesterday. She had almost 2 L in negative fluid balance yesterday. Unfortunately this is not reflected daily weights all of the chest x -ray today which showed no change in pleural effusions. On examination breath sounds remain diminished in the right lung base. She has persistent bilateral pedal edema although they do appear a little improved today. Recommendations: Continue diuresis with Lasix and metolazone as recommended by the nephrology service. Continue to monitor Input and output. Repeat serum chemistry tomorrow. Continue to encourage patient mobilization as tolerated.
--- NOTE | 2017-10-10 08:51 | RADIOLOGY REPORT ---
EXAMINATION: XR PORTABLE CHEST CLINICAL INFORMATION: Shortness of breath. COMPARISON: Chest 10/05/2017 at TECHNIQUE: Portable frontal view of the chest was obtained. FINDINGS: There is a moderate haziness right lung base likely from effusion and underlying atelectasis. Minimal haziness left lung base probably small left pleural effusion. There is cardiomegaly with increased pulmonary vascularity suggestive of vascular congestion or edema. No gross bony abnormality seen. IMPRESSION: Cardiomegaly with CHF. Moderate right and small left pleural effusion with underlying atelectasis. No major change from previous exam 10/05/2017.
--- NOTE | 2017-10-10 10:49 | PN- Nephrology ---
Assessment/Plan Nephrology Assessment: 1. chronic kidney disease stage 4/5. Renal function main stable 2. Diabetes mellitus 3. Volume overload. Her weight did go up however this may be a difference in scale. Have discussed with nursing, then she will be weighed on the same scale each and every day. 4 atrial fibrillation 5. Obesity 6. Gout 7. Hypertension. Note well, she was on hydralazine as an outpatient. Suggestion: 1. Maintain metolazone 10 mg daily 3, 60 minutes before the administration of furosemide 2. Maintain the furosemide to 80 mg IV every 12 hours 3. Metolazone only needs to be administered once a day. 4. Have spoken with her nurse, she is to be weighed on the same scale each and every day 5. Maintain on a 2 g sodium diet Subjective Subjective: She says she feels better and was spending the entire day in the bathroom. Objective Vital Signs and I&Os Vital Signs Date Time Temp Pulse Resp B/P B/P Pulse O2 O2 Flow FiO2 Mean Ox Delivery Rate 10/10 0806 108 138/68 10/10 0800 97 Nasal 2.0L Cannula 10/10 0605 98.0 108 20 138/68 97 Nasal Cannula 10/10 0000 Nasal 2.0L Cannula 10/09 2222 98.0 113 20 152/62 93 Nasal 2.0L Cannula 10/09 2118 152/62 Intake & Output 10/10 1600 10/10 0400 10/09 1600 10/09 0400 10/08 1600 10/08 0400 Intake Total 200 420 220 710 320 Output Total 997 171 7690 500 1650 Balance -450 -550 -1330 -280 -940 320 Intake, IV 20 10 Intake, Oral 200 400 220 700 320 Output, Urine 544 844 6131 500 1650 Patient 250 lb 246 lb 243 lb Weight Weight Bed scale Chair scale Bed scale Measurement Method Physical Exam: General Appearance: well developed/nourished, no apparent distress, alert, awake , comfortable, obese Head: atraumatic, normal appearance Eyes: Bilateral: PERRL, EOMI, pale conjunctivae. Neck: JVD, trachea mid line, no midline tenderness Respiratory: decreased breath sounds, no rales Cardiovascular: edema both legs Gastrointestinal: normal bowel sounds, soft, distention, no hepatosplenomegaly, no bruits Back: normal inspection, no vertebral tenderness Extremities: edema up to her thigh mostly concentrated in the lower leg also with some sacral, well-functioning right upper arm aVF is somewhat torturous on palpation. Cranial Nerves: normal hearing, normal speech Skin: intact, warm/dry, chronic venous stasis changes Current Medications: Current Medications Sig/Cole Start time Last Medication Dose Route Stop Time Status Admin Acetaminophen 650 MG Q6P PRN 10/04 1800 AC 10/08 PO 0248 Atorvastatin Calcium 40 MG 1700 10/04 1745 AC 10/09 PO 1612 Calcitriol 0.25 MCG DAILY 10/04 1737 AC 10/09 PO 0804 Diltiazem HCl 240 MG DAILY 10/04 1737 AC 10/10 PO 0807 Febuxostat 40 MG DAILY 10/05 1000 AC 10/10 PO 0807 Ferrous Sulfate 325 MG TID 10/04 2200 AC 10/10 PO 0807 Furosemide 80 MG 7:30 AM, & 4:30 PM 10/09 1630 AC 10/10 IV 0806 Furosemide 40 MG 7:30 AM, & 4:30 PM 10/05 0730 DC 10/09 IV 0805 Insulin Aspart 0 TIDAC 10/05 0800 AC 10/10 SC 0814 Insulin Aspart 0 AT BEDTIME 10/040 AC SC Metolazone 10 MG 1530 10/09 1530 AC 10/09 PO 10/11 1531 1613 Metolazone 10 MG DAILY 10/09 1500 AC PO 10/11 1001 Metoprolol Tartrate 37.5 MG BID 10/05 2199 AC 10/10 PO 0806 Morphine Sulfate 2 MG Q4P PRN 10/09 0915 AC IV Potassium Chloride 20 MEQ DAILY 10/07 1524 AC 10/10 PO 0807 Sevelamer Carbonate 1,600 MG WM 10/05 0800 AC 10/10 PO 0807 Sodium Bicarbonate 1,300 MG BID 10/04 220 AC 10/10 PO 0812 Warfarin Sodium 5 MG COUMADIN 1700 ONE 10/09 1700 DC 10/09 PO 10/09 1701 1612 Results Pertinent Lab Results: Laboratory Tests 10/10 10/09 10/09 10/09 10/08 0637 1005 0649 0325 0615 Chemistry Sodium (137 - 145 mmol/L) 141 143 144 Potassium (3.5 - 5.1 mmol/L) 4.1 4.1 3.8 Chloride (98 - 107 mmol/L) 98 101 102 Carbon Dioxide (22 - 30 mmol/L) 32 H 30 31 H Anion Gap (5 - 16) 10 12 11 BUN (7 - 17 mg/dL) 85 H 76 H 74 H Creatinine (0.5 - 1.0 mg/dL) 3.5 H 3.2 H 3.3 H Estimated GFR (>60 ml/min) 13 L 14 L 14 L BUN/Creatinine Ratio (7 - 25 %) 24.3 23.8 22.4 Magnesium (1.6 - 2.3 mg/dL) 1.8 1.9 Coagulation PT (9.4 - 12.5 SEC) 20.0 H 17.8 H 16.2 H INR (0.90 - 1.19) 1.92 H 1.70 H 1.55 H Urines Ur Random Creatinine (mg/dL) 27.8 55.1 U Random Total Protein (0 - 12 mg/dL) 134 H Protein/Creatinin Ratio (< 0.2) 2.4 H
[2017-10-10 14:59] VITALS: BP 114/80
--- NOTE | 2017-10-10 18:10 | PN- Cardiology ---
Subjective Subjective: Breathing better and less edema. Objective Vital Signs and I&Os Vital Signs Date Time Temp Pulse Resp B/P B/P Pulse O2 O2 Flow FiO2 Mean Ox Delivery Rate 10/10 1459 97.6 100 20 114/80 99 10/10 0806 108 138/68 10/10 0800 97 Nasal 2.0L Cannula 10/10 0605 98.0 108 20 138/68 97 Nasal Cannula 10/10 0000 Nasal 2.0L Cannula 10/09 2222 98.0 113 20 152/62 93 Nasal 2.0L Cannula 10/09 2118 152/62 Intake & Output 10/10 1600 10/10 0800 10/10 0000 10/09 1600 10/09 0800 10/09 0000 Intake Total 470 200 420 220 Output Total 1300 724 702 1919 700 500 Balance -830 -450 -550 -630 -700 -280 Intake, IV 20 20 Intake, Oral 450 200 400 220 Output, Urine 1300 536 049 7747 700 500 Patient 250 lb 246 lb Weight Weight Bed scale Chair scale Measurement Method Physical Exam: Well-developed, overweight elderly female in no acute distress. Vital signs: See above. HEENT: Normocephalic, atraumatic, EOMI, slightly dry mucous membranes. Neck: No JVD, right carotid bruit vs transmitted systolic murmur. Lungs: Decreased breath sounds otherwise clear. Heart: S1, S2 (irregularly, irregular) with soft (grade 1-2/6) systolic murmur. Abdomen: Soft, nontender, positive bowel sounds. Extremities: 1-2+ bilateral lower extremity edema. Current Medications: Current Medications Sig/Cole Start time Last Medication Dose Route Stop Time Status Admin Acetaminophen 650 MG Q6P PRN 10/04 1800 AC 10/08 PO 0248 Atorvastatin Calcium 40 MG 1700 10/04 1745 AC 10/09 PO 1612 Calcitriol 0.25 MCG DAILY 10/11 1000 AC PO Calcitriol 0.25 MCG DAILY 10/04 1737 DC 10/10 PO 1120 Diltiazem HCl 240 MG DAILY 10/11 1000 AC PO Diltiazem HCl 240 MG DAILY 10/04 1737 DC 10/10 PO 0807 Febuxostat 40 MG DAILY 10/05 1000 AC 10/10 PO 0807 Ferrous Sulfate 325 MG TID 10/04 2200 AC 10/10 PO 0807 Furosemide 80 MG 7:30 AM, & 4:30 PM 10/09 1630 AC 10/10 IV 0806 Insulin Aspart 0 TIDAC 10/05 0800 AC 10/10 SC 1123 Insulin Aspart 0 AT BEDTIME 10/04 2200 AC SC Metolazone 10 MG 1530 10/09 1530 AC 10/09 PO 10/11 1531 1613 Metolazone 10 MG DAILY 10/09 1500 DC PO 10/11 1001 Metoprolol Tartrate 37.5 MG BID 10/05 2200 AC 10/10 PO 0806 Morphine Sulfate 2 MG Q4P PRN 10/09 0915 AC IV Patient Medication 1 ED ONE ONE 10/10 1515 DC Teaching ED 10/10 1516 Potassium Chloride 20 MEQ DAILY 10/07 1524 AC 10/10 PO 0807 Sevelamer Carbonate 1,600 MG WM 10/05 0800 AC 10/10 PO 1120 Sodium Bicarbonate 1,300 MG BID 10/04 2200 AC 10/10 PO 0812 Warfarin Sodium 5 MG COUMADIN 1700 ONE 10/10 1700 DC PO 10/10 1701 Results Last 48 Hrs of Labs/Mics: Laboratory Tests 10/10/17 0637: Anion Gap 10, Estimated GFR 13 L, BUN/Creatinine Ratio 24.3, Magnesium 1.8, PT 20.0 H, INR 1.92 H 10/09/17 1005: Ur Random Creatinine 27.8 10/09/17 0649: Anion Gap 12, Estimated GFR 14 L, BUN/Creatinine Ratio 23.8, Magnesium 1.9, PT 17.8 H, INR 1.70 H 10/09/17 0325: Ur Random Creatinine 55.1, U Random Total Protein 134 H, Protein/Creatinin Ratio 2.4 H Recent Imaging Studies: CXR 10/10/2017: Moderate right and small left pleural effusions with underlying atelectasis. No major changes from previous study performed 10/05/2017. Assessment/Plan Assessment/Plan [id number] w/ hx gout, HLD, HTN, DM, CKD s/p RUE AV fistula 06/2016 w/o use necessity, ch anemia on RITO, & PAF s/p electrical CV following a CARI ~2015 w/ recurrence and successful antiarrhythmic Rx w/ chemical CV ~2016 who was recently hospitalized (08/23-09/01/2017) for AF w/ RVR and who gradually improved w/ standard therapy, but who became progressively SOB w/ wt gain at home over the past few weeks despite compliance w/ her diet & medical regimen and who was again found to be in AF w/ RVR & HFpEF. Feels improved following diuresis and BUN/creatinine up today. Continue with present regimen. Continue telemetry? No
[2017-10-10 22:38] VITALS: BP 122/80
[2017-10-11 07:00] VITALS: BP 114/48
--- NOTE | 2017-10-11 07:12 | PN- Housestaff ---
Lorelei BARBOUR,[facility] 10/11/17 0712: Subjective Follow-up For: Diastolic heart failure Atrial fibrillation on Coumadin Tele-Events Since Last Visit: Off telemetry monitoring Subjective: Symptoms continue to improve. Denies any chest pain, palpitations, cough with sputum production or fever/chills. Review of Systems Constitutional: Reports: no symptoms. EENTM: Reports: no symptoms. Cardiovascular: Reports: orthopena, peripheral edema. Respiratory: Reports: orthopnea, short of breath. Gastrointestinal: Reports: no symptoms. Genitourinary: Reports: no symptoms. Musculoskeletal: Reports: no symptoms. Skin: Reports: no symptoms. Neurological/Psychological: Reports: no symptoms. Hematologic/Endocrine: Reports: no symptoms. Immunologic/Allergic: Reports: no symptoms. Objective Last 24 Hrs of Vital Signs/I&O Vital Signs Date Time Temp Pulse Resp B/P B/P Pulse O2 O2 Flow FiO2 Mean Ox Delivery Rate 10/11 1014 98.0 100 18 142/78 10/11 0700 98.1 107 18 114/48 98 Nasal Cannula 10/10 2238 98.5 108 16 122/80 94 Nasal Cannula 10/10 2200 Room Air 10/10 2112 122/80 10/10 1459 97.6 100 20 114/80 99 Intake & Output 10/11 1600 10/11 0800 10/11 0000 Intake Total 50 240 Output Total 1100 600 Balance -1050 -360 Intake, Oral 50 240 Number 0 1 Bowel Movements Output, Urine 1100 600 Patient 239 lb 244 lb Weight Weight Chair scale Standing Scale Measurement Method Physical Exam General Appearance: Alert, Oriented X3, Cooperative Skin: No Rashes, No Breakdown Cardiovascular: Normal S1, Normal S2, Irregular Lungs: decreased breath sounds, crackles on bilateral lung bases right greater than left Abdomen: Normal Bowel Sounds, Soft, No Tenderness Extremities: No Clubbing, No Cyanosis, +1 pitting edema bilaterally Current Medications: Current Medications Sig/Cole Start time Last Medication Dose Route Stop Time Status Admin Acetaminophen 650 MG .STK-MED ONE 10/11 0301 DC PO 10/11 0302 Acetaminophen 650 MG Q6P PRN 10/04 1800 AC 10/11 PO 0302 Atorvastatin Calcium 40 MG 1700 10/04 1745 AC 10/10 PO 1812 Calcitriol 0.25 MCG DAILY 10/11 1000 AC 10/11 PO 1022 Calcitriol 0.25 MCG DAILY 10/04 1737 DC 10/10 PO 1120 Diltiazem HCl 240 MG DAILY 10/11 1000 AC 10/11 PO 1015 Diltiazem HCl 240 MG DAILY 10/04 1737 DC 10/10 PO 0807 Febuxostat 40 MG DAILY 10/05 1000 AC 10/11 PO 1013 Ferrous Sulfate 325 MG TID 10/04 2200 AC 10/11 PO 1013 Furosemide 80 MG 7:30 AM, & 4:30 PM 10/09 1630 AC 10/11 IV 0829 Insulin Aspart 0 TIDAC 10/05 0800 AC 10/11 SC 0837 Insulin Aspart 0 AT BEDTIME 10/04 2200 AC SC Metolazone 10 MG 1530 10/09 1530 AC 10/10 PO 10/11 1531 1812 Metolazone 10 MG DAILY 10/09 1500 DC PO 10/11 1001 Metoprolol Tartrate 37.5 MG BID 10/05 2200 AC 10/11 PO 1014 Morphine Sulfate 2 MG Q4P PRN 10/09 0915 AC IV Patient Medication 1 ED ONE ONE 10/10 1515 WA Teaching ED 10/10 1516 Potassium Chloride 20 MEQ DAILY 10/07 1524 AC 10/11 PO 1013 Sevelamer Carbonate 1,600 MG WM 10/05 0800 AC 10/11 PO 0837 Sodium Bicarbonate 1,300 MG BID 10/04 2200 AC 10/11 PO 1012 Warfarin Sodium 5 MG COUMADIN 1700 ONE 10/10 1700 DC 10/10 PO 10/10 1701 1812 Last 24 Hrs of Lab/Rayshawn Results Last 24 Hrs of Labs/Mics: Laboratory Tests 10/11/17 0826: Anion Gap 11, Estimated GFR 13 L, BUN/Creatinine Ratio 26.8 H, PT 20.7 H, INR 1.98 H Assessment/Plan Assessment: Patient is a 72-year-old female with past medical history significant for paroxysmal atrial fibrillation status post cardioversion 2 on coumadin, diabetes not on any medications currently, diabetic and hypertensive 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 Problem List; HFpEF(ejection fraction of 60% on recent echocardiogram). Atrial Fibrillation On coumadin - Continue 80 mg IV twice a day per nephrology. Day 3 of metolazone. Willl likely change the IV Lasix to by mouth today amd can be discharged home on increased dose of Lasix. - Chest x-ray yesterday showed bilateral pleural effusions without any significant change from previous chest x-ray. - Continue fluid restriction to 1000 mL. - Strict intake and output charting. Negative fluid balance of 1640L yesterday and 1050 overnight. - Daily weights. - Supplemental O2 as needed to keep O2 sats above 90%. Remains on 2 L of oxygen per - INR of 1.98 today, one dose of Coumadin 5 mg given. - Daily INR and dose coumadin as needed - NovoLog sliding scale. - Continue rest of home medications. DVT Prophylaxis: on coumadin Code: Full code Problem List: 1. Heart failure with preserved ejection fraction 2. Leg swelling 3. Dyspnea 4. Afib Pain Ratin Pain Location: None Pain Goal: Remain pain free Pain Plan: None Tomorrow's Labs & Rationales: BEP(on IV Lasix and metolazone, history of end-stage kidney disease) Geovanni BARBOUR,Richard 10/11/17 1158: Attending MD Review Statement Attending Statement Attending MD Statement: examined this patient, discuss w/resident/PA/UTILITIES ESTIMATOR AND DRAFTER, agreed w/resident/PA/UTILITIES ESTIMATOR AND DRAFTER, reviewed EMR data (avail), discussed with nursing, discussed with case mgmt, amended to note Attending Assessment/Plan: Patient seen and examined. Resting comfortably unless in any acute distress. No issues overnight. She is diuresing adequately on her current regimen. So far she is currently at a 6 L over the past 3 days. Her weight also appears to be trending downwards. She however continues to require oxygen supplementation although she is maintaining saturation in the high 90s. On examination she is not in any respiratory distress. She has no jugular venous distention. She continues to have bilateral lower extremity edema. Case was discussed with the nephrology service. We will continue current diuretic regimen with intravenous Lasix and metolazone. On account of elevated bicarb level we will give her a dose of acetazolamide 250 mg 1 today. Recommendations are to continue diuresis until an adequate dry weight is achieved.
--- NOTE | 2017-10-11 08:32 | Discharge Summary ---
Visit Information Visit Dates Admission Date: 10/05/17 Discharge Date: 10/17/17 Hospital Course Course Attending Physician: Richard Galarza MD Primary Care Physician: eCsia Sigala MD Consulting Request: 1 Consulting Specialty: Cardiology Consulting Physician: Dr. Aponte Reason for Consult: CHF exacerbation Consulting Request: 2 Consulting Specialty: Nephrology Consulting Physician: Dr. Stevens, Dr. Saenz Reason for Consult: CKD with intractable edema Hospital Course: Patient is a 72-year-old woman with a past medical history of atrial fibrillation on Coumadin, Cardizem and metoprolol, diastolic heart failure, chronic hypoxemic respiratory failure on home oxygen, diabetes, CKD, and moderate to severe pulmonary hypertension, right external carotid artery stenosis, left fluid collection in back and left foot status post drainage, and secondary hyperparathyroidism. She was recently admitted in [facility] twice in August 2017 for acute kidney injury on CKD and atrial fibrillation with rapid ventricular rate. She presented with worsening shortness of breath at rest and on exertion of 2 weeks duration. She was due to go to the wound Center for dressing of her left foot wound but was severely short of breath after taking just a few steps. She also noted worsening pedal edema despite reportedly following her diet regimen and regularly taking her by mouth Lasix 40 mg daily home medication. However on further questioning, she really had not been taking her medications as ordered and claimed that they made her feel bad. She had noted about 30 pound weight gain over the past few months but denied palpitations, chest pain, lightheadedness, diaphoresis, cough, fevers, or chills. Vital signs in the ER showed temperature of 98.9F, pulse 69, respiratory 18, blood pressure 161/95 mmHg, pulse oximetry 95% on 2.5 L of oxygen by nasal cannula. Physical exam showed: General Appearance: Elderly woman, obese, alert, oriented 3, moderate distress Head: atraumatic, normal appearance HEENT:PERRL, EOMI, normal pharynx, hearing grossly normal Neck: Normal inspection, no discernible JVD Respiratory: Bilateral lung bases with fine crepitations, no wheeze Cardiovascular: Irregularly irregular rate/rhythm, S1/S2 normal with no murmurs Gastrointestinal: Obese, normal bowel sounds, soft, non-tender, no organomegaly Neurologic/Psych: Cranial nerves 2-12 normal, no motor/sensory deficits Extremities: Bilateral +4 pitting pitting edema pedal edema. Ulcer covered with dressing present on left dorsum of foot Skin: intact, normal color, warm/dry Significant labs on admission: Sodium 146, potassium 4.2, CO2 26, glucose 159, creatinine 3.2, ALP 233, troponin <0.01, proBNP [id number]. INR was subtherapeutic at 1.16 (patient did state that she does not take Coumadin regularly because of intermittent nosebleeds) CBC: WBC 8.8, hemoglobin 11.5, hematocrit 35.5%, platelet 193. Chest x-ray showed pulmonary vascular congestion with right pleural effusion and bibasilar atelectasis. She was admitted for congestive heart failure with right pleural effusion and diuresed with IV Lasix 40 mg daily. However she was found to be diuretic resistant on admission on IV Lasix had to be increased to 60 mg twice a day with addition of PO metolazone. However, her diuretic response was deemed inadequate. She did have a history of CKD and in January 2017 she had been massively fluid overloaded and an attempt at dialysis initiation was made. She had been planned for dialysis at that time and had a right upper arm AV fistula. However the AV fistula developed problems and needed to be exteriorized and dialysis needed to be discontinued. She however responded to an intensified regimen of diuretics including torsemide and Lasix and did not need dialysis at that time. Her CKD is almost at the point of requiring dialysis and she was reviewed in this admission by crane hooker Dr. Stevens on account of resistant edema and CKD. Her Lasix dose was increased to as high as IV Lasix 80 mg TID along with po metolazone 10 mg daily. She also received intermittent doses of Diamox. She was continued on Coumadin for anticoagulation due to atrial fibrillation and her INR was maintained at a therapeutic level between 2-3. While on admission she was reviewed by podiatric is Dr. Calderón and the ulcer on the dorsum of her left foot was cleaned and dressed. She slowly improved on this diuretic regimen him a however she still had an oxygen requirement of 2 L/min by nasal cannula and had some residual weakness from physical deconditioning. The plan was made for her to be discharged to an acute rehabilitation facility. She was 247 lbs at presentation and after aggresive diuresis, she had a weight of 226 lbs prior to discharge. She was discharged on PO Torsamide 100 mg daily with PO metolazone 5 mg daily with plans by neprhologist to target a weight of 220 lbs and to follow up with her station air traffic control specialist and crane hooker. Allergies: Coded Allergies: sitagliptin (From THANG) (Severe, THROAT CLOSURE 02/05/17) Disposition Summary Disposition Principal Diagnosis: 1. Heart failure with preserved ejection fraction 2. Stage IV and stage V Chronic kidney disease 3. Resistant edema 4. Atrial fibrillation Additional Diagnosis: 5. Hypertension 6. Gout 7. Obesity 8. Diabetes mellitus 9. Chronic anemia 10. Left leg ulcer on dorsum of foot Discharge Disposition: SNF Discharge Instructions General Discharge Information Code Status: Full Code Patient's Diet: Heart-healthy diet/low sodium diet/2 Gram sodium diet Patient's Activity: Self-limited activity Follow-Up Instructions/Appts: 1. Please follow-up with your PCP within a week after discharge. 2. Please follow-up with the station air traffic control specialist within a week after discharge. 3. Please follow-up with your crane hooker within a week after discharge. 4. Please repeat your BEP 2 times per week to monitor the potassium levels and send the results to your PCP and crane hooker 5. Left foot wound to be cleansed with normal saline followed by silver alginate , followed by kerlix wrap daily and PRN. Medications at Discharge Discharge Medications: Stop taking the following medications: Sodium Bicarbonate (Sodium Bicarbonate) 325 MG TABLET ORAL TWICE DAILY Qty = 30 Furosemide (Lasix) 40 MG TABLET ORAL DAILY Qty = 30 Continue taking these medications: Febuxostat (Uloric) 40 MG TABLET 1 Tablet ORAL DAILY Qty = 30 Comments: Last Taken: 10/17/17 Time: 1025 Rosuvastatin Calcium (Crestor) 10 MG TABLET 1 Tablet ORAL DAILY Qty = 30 Comments: Last Taken: 10/17/17 Time: 1700 PT GIVEN ATORVASTATIN Sevelamer Carbonate (Renvela) 800 MG TABLET 2 Tablet ORAL WITH MEALS Qty = 180 Comments: Last Taken: 10/17/17 Time: 1215 Calcitriol (Calcitriol) 0.25 MCG CAPSULE 1 Capsule ORAL DAILY Qty = 30 Comments: Last Taken: 10/17/17 Time: 1025 Ferrous Sulfate (Ferrous Sulfate) 325 MG (65 MG IRON) TABLET 1 Tablet ORAL THREE TIMES DAILY Qty = 60 Instructions: . Comments: Last Taken: 10/17/17 Time: 1025 Diltiazem HCl (Cardizem Cd) 240 MG CAP.ER.24H 240 Milligram ORAL DAILY Qty = 30 Instructions: . Comments: Last Taken: 10/17/17 Time: 1025 Metoprolol Tartrate (Metoprolol Tartrate) 25 MG TABLET 37.5 Milligram ORAL TWICE DAILY Qty = 60 Instructions: . Comments: Last Taken: 10/17/17 Time: 1025 Insulin Aspart (Niacinamide) (Fiasp 100 Unit/Ml Flextouch) 100 UNIT/ML (3 ML) INSULN.PEN 0 Inject into fatty tissue 3 TIMES DAILY BEFORE MEALS Qty = 18 Instructions: .Please administer as follow: Comments: Last Taken: 10/17/17 Time: 1215 PT GIVEN NOVOLOG SLIDING SCALE 80-150 mg/dl: No change 151-200 mg/dl: Plus 1 Unit 201-250 mg/dl: Plus 2 unit 251-300 mg/dl: Plus 3 unit 301-350 mg/dl: Plus 4 unit 351-400 mg/dl: Plus 6 unit more than 400 mg/dl: plus 8 units and call your doctor Warfarin Sodium (Coumadin) 5 MG TABLET 1 Tablet ORAL DAILY Qty = 30 Instructions: .. Comments: Last Taken: 10/16/17 Time: 1700 Start taking the following new medications: Metolazone (Metolazone) 5 MG TABLET 1 Tablet ORAL DAILY Qty = 30 No Refills Comments: Last Taken: 10/17/17 Time: 0610 Torsemide (Torsemide) 100 MG TABLET 1 Tablet ORAL DAILY Qty = 30 No Refills Comments: Last Taken: NOT GIVEN IN HOSPITAL (WAS ON IV LASIX TID) Time: Copies To: Dany BARBOUR,Juan Quinteros; Rodney BARBOUR,Billy Bautista; Fadi BARBOUR,Terrence SJorge; Zakiya BARBOUR,Cesia; Kaitlynn COELHO,Lionel Attending MD Review Statement Documenting Attending: Richard Galarza MD Other Findings: Discharged in stable condition
[2017-10-11 09:43] LABS: PT 20.7 SEC (9.4-12.5)
--- NOTE | 2017-10-11 10:19 | PN- Nephrology ---
Assessment/Plan Nephrology Assessment: 1. chronic kidney disease stage 4/5. Renal function main stable 2. Diabetes mellitus 3. Volume overload. Her weight is down 5 pounds from yesterday. The actual measured urine is rather difficult to say. She actually has pitting edema to her waist. 4 atrial fibrillation 5. Obesity 6. Gout 7. Hypertension. Note well, she was on hydralazine as an outpatient. Suggestion: 1. Maintain the current diuretic dose 2. Daily labs. Subjective Subjective: Patient is tired of getting up to void. Objective Vital Signs and I&Os Vital Signs Date Time Temp Pulse Resp B/P B/P Pulse O2 O2 Flow FiO2 Mean Ox Delivery Rate 10/11 1014 98.0 100 18 142/78 10/11 0700 98.1 107 18 114/48 98 Nasal Cannula 10/10 2238 98.5 108 16 122/80 94 Nasal Cannula 10/10 2200 Room Air 10/10 2112 122/80 10/10 1459 97.6 100 20 114/80 99 Intake & Output 10/11 1600 10/11 0400 10/10 1600 10/10 0400 10/09 1600 10/09 0400 Intake Total 50 240 670 420 220 Output Total 200 1500 5484 497 0857 500 Balance -150 -1260 -1280 -550 -1330 -280 Intake, IV 20 20 Intake, Oral 50 240 650 400 220 Number 0 1 Bowel Movements Output, Urine 200 1500 4288 153 2894 500 Patient 239 lb 244 lb 250 lb 246 lb Weight Weight Chair scale Standing Scale Bed scale Chair scale Measurement Method Physical Exam: General Appearance: well developed/nourished, no apparent distress, alert, awake , comfortable, obese Head: atraumatic, normal appearance Eyes: Bilateral: PERRL, EOMI, pale conjunctivae. Neck: JVD, trachea mid line, no midline tenderness Respiratory: decreased breath sounds, no rales Cardiovascular: edema both legs Gastrointestinal: normal bowel sounds, soft, distention, no hepatosplenomegaly, no bruits Back: normal inspection, no vertebral tenderness Extremities: edema up to her waistmostly concentrated in the lower leg also with some sacral, well-functioning right upper arm aVF is somewhat torturous on palpation. Cranial Nerves: normal hearing, normal speech Skin: intact, warm/dry, chronic venous stasis changes Current Medications: Current Medications Sig/Cole Start time Last Medication Dose Route Stop Time Status Admin Acetaminophen 650 MG Q6P PRN 10/04 1800 AC 10/11 PO 0302 Atorvastatin Calcium 40 MG 1700 10/04 1745 AC 10/10 PO 1812 Calcitriol 0.25 MCG DAILY 10/11 1000 AC PO Calcitriol 0.25 MCG DAILY 10/04 1737 DC 10/10 PO 1120 Diltiazem HCl 240 MG DAILY 10/11 1000 AC 10/11 PO 1015 Diltiazem HCl 240 MG DAILY 10/04 1737 DC 10/10 PO 0807 Febuxostat 40 MG DAILY 10/05 1000 AC 10/11 PO 1013 Ferrous Sulfate 325 MG TID 10/04 220 AC 10/11 PO 1013 Furosemide 80 MG 7:30 AM, & 4:30 PM 10/09 1630 AC 10/11 IV 0829 Insulin Aspart 0 TIDAC 10/05 0800 AC 10/11 SC 0837 Insulin Aspart 0 AT BEDTIME 10/04 2200 AC SC Metolazone 10 MG 1530 10/09 1530 AC 10/10 PO 10/11 1531 1812 Metolazone 10 MG DAILY 10/09 1500 DC PO 10/11 1001 Metoprolol Tartrate 37.5 MG BID 10/05 220 AC 10/11 PO 1014 Morphine Sulfate 2 MG Q4P PRN 10/09 0915 AC IV Patient Medication 1 ED ONE ONE 10/10 1515 DC Teaching ED 10/10 1516 Potassium Chloride 20 MEQ DAILY 10/07 1524 10/11 PO 1013 Sevelamer Carbonate 1,600 MG WM 10/05 0800 AC 10/11 PO 0837 Sodium Bicarbonate 1,300 MG BID 10/04 220 AC 10/11 PO 1012 Warfarin Sodium 5 MG COUMADIN 1700 ONE 10/10 1700 DC 10/10 PO 10/10 1701 1812 Results Pertinent Lab Results: Laboratory Tests 10/11 10/10 10/09 10/09 10/09 0826 0637 1005 0649 0325 Chemistry Sodium (137 - 145 mmol/L) 143 141 143 Potassium (3.5 - 5.1 mmol/L) 3.8 4.1 4.1 Chloride (98 - 107 mmol/L) 97 L 98 101 Carbon Dioxide (22 - 30 mmol/L) 35 H 32 H 30 Anion Gap (5 - 16) 11 10 12 BUN (7 - 17 mg/dL) 91 H 85 H 76 H Creatinine (0.5 - 1.0 mg/dL) 3.4 H 3.5 H 3.2 H Estimated GFR (>60 ml/min) 13 L 13 L 14 L BUN/Creatinine Ratio (7 - 25 %) 26.8 H 24.3 23.8 Magnesium (1.6 - 2.3 mg/dL) 1.8 1.9 Coagulation PT (9.4 - 12.5 SEC) 20.7 H 20.0 H 17.8 H INR (0.90 - 1.19) 1.98 H 1.92 H 1.70 H Urines Ur Random Creatinine (mg/dL) 27.8 55.1 U Random Total Protein (0 - 12 mg/dL) 134 H Protein/Creatinin Ratio (< 0.2) 2.4 H
[2017-10-11 14:00] VITALS: BP 102/60
[2017-10-11 22:00] VITALS: BP 112/68
[2017-10-12 06:53] VITALS: BP 112/62
--- NOTE | 2017-10-12 07:25 | PN- Housestaff ---
Lorelei BARBOUR,[facility] 10/12/17 0725: Subjective Follow-up For: Diastolic heart failure Atrial fibrillation on Coumadin Tele-Events Since Last Visit: Off Telemetry Subjective: Patient was going on a walk with when i went to see her this am. Patient would prefer to go home on discharge but states her daughter will not approve of it and would want her to go to the ER. Review of Systems Constitutional: Reports: no symptoms. EENTM: Reports: no symptoms. Cardiovascular: Reports: peripheral edema. Respiratory: Reports: orthopnea, short of breath. Gastrointestinal: Reports: no symptoms. Genitourinary: Reports: no symptoms. Musculoskeletal: Reports: no symptoms. Skin: Reports: no symptoms. Neurological/Psychological: Reports: no symptoms. Hematologic/Endocrine: Reports: no symptoms. Immunologic/Allergic: Reports: no symptoms. Objective Last 24 Hrs of Vital Signs/I&O Vital Signs Date Time Temp Pulse Resp B/P B/P Pulse O2 O2 Flow FiO2 Mean Ox Delivery Rate 10/12 08 Nasal 2.0L Cannula 10/12 0653 98.0 110 20 112/62 97 Nasal Cannula 10/11 2335 Room Air 10/11 2200 98.2 108 20 112/68 98 Room Air 10/11 2026 108 112/68 10/11 1400 97.8 88 20 102/60 97 Nasal 2.0L Cannula Intake & Output 10/12 1600 10/12 0800 10/12 0000 Intake Total 0 530 Output Total 1100 1500 Balance -1100 -970 Intake, Oral 0 530 Number 0 1 Bowel Movements Output, Urine 1100 1500 Patient 239 lb Weight Physical Exam General Appearance: Alert, Oriented X3, Cooperative, No Acute Distress Skin: No Rashes, No Breakdown HEENT: Atraumatic, PERRLA, EOMI Cardiovascular: Normal S1, Normal S2, Irregular Lungs: decreased breath sounds Abdomen: Normal Bowel Sounds, Soft, No Tenderness Extremities: No Clubbing, No Cyanosis, +1 pitting edema bilaterally. Current Medications: Current Medications Sig/Cole Start time Last Medication Dose Route Stop Time Status Admin Acetaminophen 650 MG .STK-MED ONE 10/11 2019 DC PO 10/11 2019 Acetaminophen 650 MG Q6P PRN 10/04 1800 AC 10/11 PO 2026 Acetazolamide 250 MG ONCE ONE 10/12 1200 DC Sodium Chloride 50 ML IV 10/12 1229 Acetazolamide 250 MG ONCE ONE 10/11 1315 DC 10/11 Sodium Chloride 50 ML IV 10/11 1344 1711 Atorvastatin Calcium 40 MG 1700 10/04 1745 AC 10/11 PO 1708 Calcitriol 0.25 MCG DAILY 10/11 1000 AC 10/12 PO 0813 Diltiazem HCl 240 MG DAILY 10/11 1000 AC 10/12 PO 0815 Febuxostat 40 MG DAILY 10/05 1000 AC 10/12 PO 0813 Ferrous Sulfate 325 MG TID 10/04 2200 AC 10/12 PO 0814 Furosemide 80 MG 7:30 AM, & 4:30 PM 10/09 1630 AC 10/12 IV 0815 Insulin Aspart 0 TIDAC 10/05 0800 AC 10/12 SC 0815 Insulin Aspart 0 AT BEDTIME 10/04 220 SC Magnesium Sulfate 1 GM ONCE ONE 10/11 1330 DC 10/11 Dextrose/Water 100 ML IV 10/11 1729 1834 Metolazone 10 MG 1530 10/12 1530 AC PO 10/14 1531 Metolazone 10 MG 1530 10/09 1530 DC 10/11 PO 10/11 1531 1710 Metoprolol Tartrate 37.5 MG BID 10/05 2200 AC 10/12 PO 0812 Morphine Sulfate 2 MG Q4P PRN 10/09 0915 IV Potassium Chloride 20 MEQ DAILY 10/07 1524 AC 10/12 PO 0814 Sevelamer Carbonate 1,600 MG WM 10/05 0800 AC 10/12 PO 0813 Sodium Bicarbonate 1,300 MG BID 10/04 2200 AC 10/12 PO 0813 Warfarin Sodium 5 MG COUMADIN 1700 ONE 10/11 1700 DC 10/11 PO 10/11 1701 1708 Last 24 Hrs of Lab/Rayshawn Results Last 24 Hrs of Labs/Mics: Laboratory Tests 10/12/17 0607: Anion Gap 10, Estimated GFR 12 L, BUN/Creatinine Ratio 24.1, PT 24.8 H, INR 2.38 H Assessment/Plan Assessment: Patient is a 72-year-old female with past medical history significant for paroxysmal atrial fibrillation status post cardioversion 2 on coumadin, diabetes not on any medications currently, diabetic and hypertensive 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 Problem List; HFpEF(ejection fraction of 60% on recent echocardiogram). Atrial Fibrillation On coumadin - Continue 80 mg IV twice a day and metolazone once daily. Patient worsening symptoms with almost 2600 negative fluid balance yesterday. Suggested body weight of 220lb on discharge by nephrology, patient's currentLY 239 pounds. - Continue fluid restriction to 1000 mL. - Supplemental O2 as needed to keep O2 sats above 90%. Remains on 2 L of oxygen. Patient desaturated to 81% on room air while ambulating this morning. - INR of 2.38 today, one dose of Coumadin 5 mg given. - Daily INR and dose coumadin as needed - NovoLog sliding scale. - Continue rest of home medications. DVT Prophylaxis: on coumadin Code: Full code Problem List: 1. Heart failure with preserved ejection fraction 2. Afib Pain Ratin Pain Location: None Pain Goal: Remain pain free Pain Plan: None Tomorrow's Labs & Rationales: BEP(on IV lasix and metolazone, Hx of CKD), INR(on Coumadin) Consulting Request: Consulting Specialty: Nephrology Consulting Physician: Dr. Stevens Reason for Consult: CKD with intractable edema [facility] 1246: Attending MD Review Statement Attending Statement Attending MD Statement: examined this patient, discuss w/resident/PA/PIN DRAFTER, agreed w/resident/PA/PIN DRAFTER, reviewed EMR data (avail), discussed with nursing, discussed with case mgmt, amended to note Attending Assessment/Plan: Patient seen and examined. Resting comfortably and not in acute distress. She has been ambulating around the unit but does complain of shortness breath with ambulation. She continues to require cues supplementation and desaturated into the low 80s when taken off oxygen yesterday. She continues to diurese appropriately diuresing about almost 4 L yesterday maintaining a negative balance of almost 3 liters. On examination she continues to have diminished breath sounds right lung base. Peripheral edema remains persistent. Case was discussed with nephrology service. Patient continues to require aggressive diuresis in order to avoid her developing respiratory failure. Her kidney function will likely continue to worsen with diuresis however she requires such aggressive therapy to maintain a negative fluid balance. Her only other option would be to go on dialysis if she does not respond to more conservative therapy. A target weight of 220 pounds and is suggestive of nephrology service. She is currently about 239 pounds. We will see how she progresses over the next few days. If she does not respond to aggressive diuresis hemodialysis may need to be considered.
[2017-10-12 08:19] LABS: PT 24.8 SEC (9.4-12.5)
--- NOTE | 2017-10-12 11:03 | PN- Nephrology ---
Assessment/Plan Nephrology Assessment: Stage IV/V CKD - SCr oscillating around baseline. Subnephrotic range proteinuria. Edema - Not nephrosis. Clear extravascular volume expansion on chest imaging, physical exam, and by symptomatology. Has been difficult to maintain euvolemia as an outpatient. Met acidosis - Had been on sodium bicarb for met acidosis but now has a met alkalosis requiring acetazolamide. Anemia - Hg at goal 10-11 for CKD. Suggestion: -Cont 80mg IV lasix BID with 10mg PO metolazone given 30min prior to AM dose -Goal weight of 220lbs by discharge -Daily standing weights -Stop sodium bicarb Please call [phone] with ?'s Subjective Subjective: SCr 3.7 Continues on IV diuretics - 80mg IV lasix BID + 10mg PO metolazone -> 3.85L UOP No weights today - says the last time she was without fluid was this past summer - she weighed 209lbs Breathing still labored Objective Vital Signs and I&Os Vital Signs Date Time Temp Pulse Resp B/P B/P Pulse O2 O2 Flow FiO2 Mean Ox Delivery Rate 10/12 0800 Nasal 2.0L Cannula 10/12 0653 98.0 110 20 112/62 97 Nasal Cannula 10/11 2335 Room Air 10/11 2200 98.2 108 20 112/68 98 Room Air 10/11 2026 108 112/68 10/11 1400 97.8 88 20 102/60 97 Nasal 2.0L Cannula Intake & Output 10/12 1600 10/12 0400 10/11 1600 10/11 0400 10/10 1600 10/10 0400 Intake Total 0 530 650 240 670 Output Total 800 1800 1450 1500 1950 550 Balance -800 -1270 -800 -1260 -1280 -550 Intake, IV 20 Intake, Oral 0 530 650 240 650 Number 0 1 0 1 Bowel Movements Output, Urine 800 1800 1450 1500 1950 550 Patient 239 lb 239 lb 244 lb 250 lb Weight Weight Chair scale Standing Scale Bed scale Measurement Method Physical Exam: Gen - OK appearing, dyspneic with long sentences HEENT - supple, JVP visible CV - RRR, no m/r/g Chest - somewhat decreased at bases, no w/r/r Abd - soft, NTND Ext - 2+ edema b/l Neuro - AOX3, grossly nonfocal Current Medications: Current Medications Sig/Cole Start time Last Medication Dose Route Stop Time Status Admin Acetaminophen 650 MG .STK-MED ONE 10/11 2019 DC PO 10/11 2019 Acetaminophen 650 MG Q6P PRN 10/04 1800 AC 10/11 PO 2026 Acetazolamide 250 MG ONCE ONE 10/11 1315 DC 10/11 Sodium Chloride 50 ML IV 10/11 1344 1711 Atorvastatin Calcium 40 MG 1700 10/04 1745 AC 10/11 PO 1708 Calcitriol 0.25 MCG DAILY 10/11 1000 AC 10/12 PO 0813 Diltiazem HCl 240 MG DAILY 10/11 1000 AC 10/12 PO 0815 Febuxostat 40 MG DAILY 10/05 1000 AC 10/12 PO 0813 Ferrous Sulfate 325 MG TID 10/04 220 AC 10/12 PO 0814 Furosemide 80 MG 7:30 AM, & 4:30 PM 10/09 1630 AC 10/12 IV 0815 Insulin Aspart 0 TIDAC 10/05 0800 AC 10/12 SC 0815 Insulin Aspart 0 AT BEDTIME 10/04 2200 AC SC Magnesium Sulfate 1 GM ONCE ONE 10/11 1330 DC 10/11 Dextrose/Water 100 ML IV 10/11 1729 1834 Metolazone 10 MG 1530 10/09 1530 DC 10/11 PO 10/11 1531 1710 Metoprolol Tartrate 37.5 MG BID 10/05 220 AC 10/12 PO 0812 Morphine Sulfate 2 MG Q4P PRN 10/09 0915 AC IV Potassium Chloride 20 MEQ DAILY 10/07 1524 AC 10/12 PO 0814 Sevelamer Carbonate 1,600 MG WM 10/05 0800 AC 10/12 PO 0813 Sodium Bicarbonate 1,300 MG BID 10/04 220 AC 10/12 PO 0813 Warfarin Sodium 5 MG COUMADIN 1700 ONE 10/11 1700 DC 10/11 PO 10/11 1701 1708 Results Pertinent Lab Results: Laboratory Tests 10/12 10/11 10/10 0607 0826 0637 Chemistry Sodium (137 - 145 mmol/L) 141 143 141 Potassium (3.5 - 5.1 mmol/L) 3.7 3.8 4.1 Chloride (98 - 107 mmol/L) 95 L 97 L 98 Carbon Dioxide (22 - 30 mmol/L) 35 H 35 H 32 H Anion Gap (5 - 16) 10 11 10 BUN (7 - 17 mg/dL) 89 H 91 H 85 H Creatinine (0.5 - 1.0 mg/dL) 3.7 H 3.4 H 3.5 H Estimated GFR (>60 ml/min) 12 L 13 L 13 L BUN/Creatinine Ratio (7 - 25 %) 24.1 26.8 H 24.3 Magnesium (1.6 - 2.3 mg/dL) 1.8 Coagulation PT (9.4 - 12.5 SEC) 24.8 H 20.7 H 20.0 H INR (0.90 - 1.19) 2.38 H 1.98 H 1.92 H Imaging/Other Studies: EXAM TYPE: RAD - XRY-PORTABLE CHEST XRAY EXAMINATION: XR PORTABLE CHEST CLINICAL INFORMATION: Shortness of breath. COMPARISON: Chest 10/05/2017 at TECHNIQUE: Portable frontal view of the chest was obtained. FINDINGS: There is a moderate haziness right lung base likely from effusion and underlying atelectasis. Minimal haziness left lung base probably small left pleural effusion. There is cardiomegaly with increased pulmonary vascularity suggestive of vascular congestion or edema. No gross bony abnormality seen. IMPRESSION: Cardiomegaly with CHF. Moderate right and small left pleural effusion with underlying atelectasis. No major change from previous exam 10/05/2017.
[2017-10-12 14:00] VITALS: BP 130/60
--- NOTE | 2017-10-12 18:32 | PN- Cardiology ---
Subjective Subjective: No complaints. Feels as though her breathing has improved and that her edema has gotten somewhat better. Objective Vital Signs and I&Os Vital Signs Date Time Temp Pulse Resp B/P B/P Pulse O2 O2 Flow FiO2 Mean Ox Delivery Rate 10/12 1400 98.1 101 20 130/60 99 Nasal 2.0L Cannula 10/12 0800 Nasal 2.0L Cannula 10/12 0653 98.0 110 20 112/62 97 Nasal Cannula 10/11 2335 Room Air 10/11 2199 98.2 108 20 112/68 98 Room Air 10/11 2026 108 112/68 Intake & Output 10/12 1600 10/12 0800 10/12 0000 10/11 1600 10/11 0800 10/11 0000 Intake Total 720 0 530 600 50 240 Output Total 550 1100 1500 1250 1100 600 Balance 170 -1100 -970 -650 -1050 -360 Intake, Oral 720 0 530 600 50 240 Number 0 1 0 1 Bowel Movements Output, Urine 550 1100 1500 1250 1100 600 Patient 239 lb 239 lb 244 lb Weight Weight Chair scale Standing Scale Measurement Method Physical Exam: Overweight elderly female in no acute distress. Vital signs: See above. HEENT: Normocephalic, atraumatic, EOMI, slightly dry mucous membranes. Neck: No JVD, right carotid bruit vs transmitted systolic murmur. Lungs: Decreased breath sounds otherwise clear. Heart: S1, S2 (irregularly, irregular) with soft (grade 1-2/6) systolic murmur. Abdomen: Soft, nontender, positive bowel sounds. Extremities: 1-2+ bilateral lower extremity edema. Current Medications: Current Medications Sig/Cole Start time Last Medication Dose Route Stop Time Status Admin Acetaminophen 650 MG .STK-MED ONE 10/11 2018 DC PO 10/11 2019 Acetaminophen 650 MG Q6P PRN 10/04 1800 AC 10/11 PO 2026 Acetazolamide 250 MG ONCE ONE 10/12 1200 DC 10/12 Sodium Chloride 50 ML IV 10/12 1229 1418 Atorvastatin Calcium 40 MG 1700 10/04 1745 AC 10/12 PO 1658 Calcitriol 0.25 MCG DAILY 10/11 1000 AC 10/12 PO 08 Diltiazem HCl 240 MG DAILY 10/11 1000 AC 10/12 PO 0815 Febuxostat 40 MG DAILY 10/05 1000 AC 10/12 PO 0813 Ferrous Sulfate 325 MG TID 10/04 2200 AC 10/12 PO 1658 Furosemide 80 MG 7:30 AM, & 4:30 PM 10/09 1630 AC 10/12 IV 1658 Insulin Aspart 0 TIDAC 10/05 08 AC 10/12 SC 1659 Insulin Aspart 0 AT BEDTIME 10/04 220 AC SC Metolazone 10 MG DAILY AC 10/13 0700 AC PO 10/15 0701 Metolazone 10 MG 1530 10/12 1530 DC PO 10/14 1531 Metoprolol Tartrate 37.5 MG BID 10/05 2200 AC 10/12 PO 0812 Morphine Sulfate 2 MG Q4P PRN 10/09 0915 AC IV Potassium Chloride 20 MEQ DAILY 10/07 1524 AC 10/12 PO 0814 Sevelamer Carbonate 1,600 MG WM 10/05 0800 AC 10/12 PO 1658 Sodium Bicarbonate 1,300 MG BID 10/04 2200 DC 10/12 PO 0813 Warfarin Sodium 5 MG COUMADIN 1700 ONE 10/12 1700 DC 10/12 PO 10/12 1701 1658 Results Last 48 Hrs of Labs/Mics: Laboratory Tests 10/12/17 0607: Anion Gap 10, Estimated GFR 12 L, BUN/Creatinine Ratio 24.1, PT 24.8 H, INR 2.38 H 10/11/17 0826: Anion Gap 11, Estimated GFR 13 L, BUN/Creatinine Ratio 26.8 H, PT 20.7 H, INR 1.98 H Recent Imaging Studies: CXR 10/10/2017: Cardiomegaly with CHF. Moderate right and small left pleural effusion with underlying atelectasis. No major change from previous exam 10/05/2017. Assessment/Plan Assessment/Plan 72-y-o-w-f w/ hx gout, HLD, HTN, DM, CKD s/p RUE AV fistula 06/2016 w/o use necessity, ch anemia on RITO, & PAF s/p electrical CV following a CARI ~2015 w/ recurrence and successful antiarrhythmic Rx w/ chemical CV ~2016 who was recently hospitalized (08/23-09/01/2017) for AF w/ RVR and who gradually improved w/ standard therapy, but who became progressively SOB w/ wt gain at home over the past few weeks despite compliance w/ her diet & medical regimen and who was again found to be in AF w/ RVR & HFpEF. Feels improved following diuresis. Continue with present regimen. Continue telemetry? Not applicable (Off telemetry.)
[2017-10-12 22:21] VITALS: BP 122/78
[2017-10-13 06:56] VITALS: BP 128/64
--- NOTE | 2017-10-13 07:14 | PN- Housestaff ---
Lorelei BARBOUR,[facility] 10/13/17 0713: Subjective Follow-up For: Diastolic heart failure Atrial fibrillation on Coumadin Tele-Events Since Last Visit: Off Telemetry Subjective: Patient continues to be on supplemental oxygen. On left leg looks slightly bigger compared to yesterday but she does not want compression stockings, states she feels claustrophobic with the stockings. Review of Systems Constitutional: Reports: no symptoms. EENTM: Reports: no symptoms. Cardiovascular: Reports: orthopena, peripheral edema. Respiratory: Reports: orthopnea, short of breath. Gastrointestinal: Reports: no symptoms. Genitourinary: Reports: no symptoms. Musculoskeletal: Reports: no symptoms. Skin: Reports: no symptoms. Neurological/Psychological: Reports: no symptoms. Hematologic/Endocrine: Reports: no symptoms. Immunologic/Allergic: Reports: no symptoms. Objective Last 24 Hrs of Vital Signs/I&O Vital Signs Date Time Temp Pulse Resp B/P B/P Pulse O2 O2 Flow FiO2 Mean Ox Delivery Rate 10/13 0905 90 128/64 10/13 0800 98 Nasal 2.0L Cannula 10/13 0656 98.3 109 16 128/64 98 Nasal Cannula 10/13 0000 Nasal 2.0L Cannula 10/12 2221 98.1 114 16 122/78 98 Nasal 2.0L Cannula 10/12 1955 132/72 10/12 1600 94 Nasal 2.0L Cannula 10/12 1400 98.1 101 20 130/60 99 Nasal 2.0L Cannula Intake & Output 10/13 1600 10/13 0800 10/13 0000 Intake Total 100 Output Total 400 900 Balance -300 -900 Intake, Oral 100 Output, Urine 400 900 Patient 237 lb 258 lb Weight Weight Chair scale Bed scale Measurement Method Physical Exam General Appearance: Alert, Oriented X3, Cooperative, No Acute Distress Skin: No Rashes, No Breakdown Cardiovascular: Normal S1, Normal S2, Irregular Lungs: mild crackles bilaterally Abdomen: Normal Bowel Sounds, Soft, No Tenderness Extremities: No Clubbing, No Cyanosis, +1 pitting edema Current Medications: Current Medications Sig/Cole Start time Last Medication Dose Route Stop Time Status Admin Acetaminophen 650 MG .STK-MED ONE 10/12 1945 DC PO 10/12 1946 Acetaminophen 650 MG Q6P PRN 10/04 1800 AC 10/12 PO 1954 Acetazolamide 250 MG ONCE ONE 10/12 1200 DC 10/12 Sodium Chloride 50 ML IV 10/12 1229 1418 Atorvastatin Calcium 40 MG 1700 10/04 1745 AC 10/12 PO 1658 Calcitriol 0.25 MCG DAILY 10/11 1000 AC 10/13 PO 0905 Diltiazem HCl 240 MG DAILY 10/11 1000 AC 10/13 PO 0905 Febuxostat 40 MG DAILY 10/05 1000 AC 10/13 PO 0904 Ferrous Sulfate 325 MG TID 10/04 2200 AC 10/13 PO 0904 Furosemide 80 MG 7:30 AM, & 4:30 PM 10/09 1630 AC 10/13 IV 0800 Insulin Aspart 0 TIDAC 10/05 0800 AC 10/13 SC 0759 Insulin Aspart 0 AT BEDTIME 10/04 2200 AC SC Metolazone 10 MG DAILY AC 10/13 0700 AC 10/13 PO 10/15 0701 0654 Metolazone 10 MG 1530 10/12 1530 DC PO 10/14 1531 Metoprolol Tartrate 37.5 MG BID 10/05 2200 AC 10/13 PO 0905 Morphine Sulfate 2 MG Q4P PRN 10/09 0915 AC IV Potassium Chloride 40 MEQ ONCE ONE 10/13 0830 DC 10/13 PO 10/13 0831 1037 Potassium Chloride 20 MEQ DAILY 10/07 1524 AC 10/13 PO 0904 Sevelamer Carbonate 1,600 MG WM 10/05 0800 AC 10/13 PO 0800 Sodium Bicarbonate 1,300 MG BID 10/04 2200 DC 10/12 PO 0813 Warfarin Sodium 5 MG COUMADIN 1700 ONE 10/12 1700 DC 10/12 PO 10/12 1701 1658 Last 24 Hrs of Lab/Rayshawn Results Last 24 Hrs of Labs/Mics: Laboratory Tests 10/13/17 0621: Anion Gap 10, Estimated GFR 11 L, BUN/Creatinine Ratio 23.3, PT 30.0 H, INR 2.89 H Assessment/Plan Assessment: Patient is a 72-year-old female with past medical history significant for paroxysmal atrial fibrillation status post cardioversion 2 on coumadin, diabetes not on any medications currently, diabetic and hypertensive 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 Problem List; HFpEF(ejection fraction of 60% on recent echocardiogram). Atrial Fibrillation On coumadin - Change lasix to 60 mg three times a day and metolazone once daily before the morning dose of lasix. - Negative fluid balance of 1800 ml yesterday, with slight improvemnt in weight to 237 this morning. Goal Weight of 220 per nephrology. Will continue to diurese. - Cr creeping up slowly, will repeat BEP in am to monitor renal function and Biacarb while on Lasix. - Supplemental O2 to keep O2 sats above 92%. - Daily INR 2.89 and will hold coumadin today and repeat INR tomorrow am. - NovoLog sliding scale. - Continue rest of home medications. DVT Prophylaxis: on coumadin Code: Full code Problem List: 1. Heart failure with preserved ejection fraction Pain Ratin Pain Location: None Pain Goal: Remain pain free Pain Plan: None Tomorrow's Labs & Rationales: BEP(on lasix and Metolazone), INR(On Coumadin) Consulting Request: Consulting Specialty: Nephrology Consulting Physician: Dr. Stevens Reason for Consult: CKD with intractable edema Geovanni BARBOUR,Eagleaileenjimmy 10/13/17 1219: Attending MD Review Statement Attending Statement Attending MD Statement: examined this patient, discuss w/resident/PA/MARKET DEVELOPMENT TRAINER, agreed w/resident/PA/MARKET DEVELOPMENT TRAINER, reviewed EMR data (avail), discussed with nursing, discussed with case mgmt, amended to note Attending Assessment/Plan: Patient seen and examined. Resting comfortably not in any acute distress. No issues overnight reported by nursing staff. She is comfortable at rest. She offers no new complaints. There is no worsening of her oxygen supplementation. Physical examination is unchanged with diminished breath sounds in the right lung base and persistent lower extremity edema. I did again offer the patient bilateral compression stockings to help reduce her lower extremity edema however she continues to refuse to use this stating that they make her feel claustrophobic. Patient's nephrology service is recommending that a recent to a goal weight of 220 pounds. Patient is currently down 3 pounds from yesterday to 235 pounds today. Her BUN/creatinine is trending upwards with the aggressive diuresis however this has been anticipated by the nephrology service. The nephrology service is recommending increasing diuresis to Lasix 80 mg IV 3 times a day and continue with the p.o. metolazone. Patient is responding to IV diuresis however she continues to remain volume overloaded. She continues to require oxygen supplementation which was not her baseline in the past. If she fails to improve adequately with diuretic therapy she will need to be considered for hemodialysis. She however appears to be improving with conservative management. Her hospital course is anticipated to be prolonged due to the need for IV diuresis with close monitoring of her daily weights and renal function. Patient is aware of this. She was admitted twice in August and in September and was managed during those times for her volume overload. She may eventually require hemodialysis despite ongoing medical therapy.
--- NOTE | 2017-10-13 12:07 | PN- Nephrology ---
Assessment/Plan Nephrology Assessment: Stage IV/V CKD - SCr oscillating around baseline. Subnephrotic range proteinuria. Edema - Not nephrosis. Clear extravascular volume expansion on chest imaging, physical exam, and by symptomatology. Has been difficult to maintain euvolemia as an outpatient. We should go up on her diuretics regardless of what it does to her creatinine. Her and I spoke at length and she understands that euvolemia may come at the cost of needing dialysis. Met acidosis - Had been on sodium bicarb for met acidosis but now has a met alkalosis requiring acetazolamide. Bicarb has been stopped. Anemia - Hg at goal 10-11 for CKD. Suggestion: -Increase lasix to 80mg IV TID (6am, 12pm, 6pm) with 10mg PO metolazone given 30min prior to AM dose -Goal weight of 220lbs by discharge -Daily standing weights -Recheck Hepatitis B serologies Please call [phone] with ?'s Subjective Subjective: SCr up to 4.0 On lasix 80mg IV BID + 10mg PO metolazone - 2.5L UOP Weight 237 (258 yesterday although not clear if accurate; was 247 on 10/04) Still SOB Objective Vital Signs and I&Os Vital Signs Date Time Temp Pulse Resp B/P B/P Pulse O2 O2 Flow FiO2 Mean Ox Delivery Rate 10/13 0905 90 128/64 10/13 0800 98 Nasal 2.0L Cannula 10/13 0656 98.3 109 16 128/64 98 Nasal Cannula 10/13 0000 Nasal 2.0L Cannula 10/12 2221 98.1 114 16 122/78 98 Nasal 2.0L Cannula 10/12 1955 132/72 10/12 1600 94 Nasal 2.0L Cannula 10/12 1400 98.1 101 20 130/60 99 Nasal 2.0L Cannula Intake & Output 10/13 04010/12 1600 10/12 04010/11 0400 Intake Total 100 720 530 650 240 Output Total 079 501 8663 1800 1450 1500 Balance -300 -900 -630 -1270 -800 -1260 Intake, Oral 100 720 530 650 240 Number 0 1 0 1 Bowel Movements Output, Urine 090 970 9637 1800 1450 1500 Patient 237 lb 258 lb 239 lb 239 lb 244 lb Weight Weight Chair scale Bed scale Chair scale Standing Scale Measurement Method Physical Exam: Gen - OK appearing HEENT- JVP up CV - RRR, no m/r/g Chest - bibasilar crackles Abd - soft, NTND Ext - +edema, REX AVF +thrill/+bruit\ Neuro - AOX3, grossly nonfocal Current Medications: Current Medications Sig/Cole Start time Last Medication Dose Route Stop Time Status Admin Acetaminophen 650 MG .STK-MED ONE 10/12 1945 DC PO 10/12 194 Acetaminophen 650 MG Q6P PRN 10/04 1800 AC 10/12 PO 195 Acetazolamide 250 MG ONCE ONE 10/12 1200 DC 10/12 Sodium Chloride 50 ML IV 10/12 1229 1418 Atorvastatin Calcium 40 MG 1700 10/04 1745 AC 10/12 PO 165 Calcitriol 0.25 MCG DAILY 10/11 1000 AC 10/13 PO 0905 Diltiazem HCl 240 MG DAILY 10/11 1000 AC 10/13 PO 0905 Febuxostat 40 MG DAILY 10/05 1000 AC 10/13 PO 0904 Ferrous Sulfate 325 MG TID 10/04 220 AC 10/13 PO 0904 Furosemide 80 MG 7:30 AM, & 4:30 PM 10/09 1630 AC 10/13 IV 0800 Insulin Aspart 0 TIDAC 10/05 0800 AC 10/13 SC 0759 Insulin Aspart 0 AT BEDTIME 10/04 2199 AC SC Metolazone 10 MG DAILY AC 10/13 0700 AC 10/13 PO 10/15 0701 0654 Metolazone 10 MG 1530 10/12 1530 DC PO 10/14 1531 Metoprolol Tartrate 37.5 MG BID 10/05 2200 AC 10/13 PO 0905 Morphine Sulfate 2 MG Q4P PRN 10/09 0915 AC IV Potassium Chloride 40 MEQ ONCE ONE 10/13 0830 DC 10/13 PO 10/13 0831 1037 Potassium Chloride 20 MEQ DAILY 10/07 1524 AC 10/13 PO 0904 Sevelamer Carbonate 1,600 MG WM 10/05 0800 AC 10/13 PO 0800 Sodium Bicarbonate 1,300 MG BID 10/04 2200 DC 10/12 PO 0813 Warfarin Sodium 5 MG COUMADIN 1700 ONE 10/12 1700 DC 10/12 PO 10/12 1701 1658 Results Pertinent Lab Results: Laboratory Tests 10/13 10/12 10/11 0621 0607 0826 Chemistry Sodium (137 - 145 mmol/L) 142 141 143 Potassium (3.5 - 5.1 mmol/L) 3.6 3.7 3.8 Chloride (98 - 107 mmol/L) 95 L 95 L 97 L Carbon Dioxide (22 - 30 mmol/L) 37 H 35 H 35 H Anion Gap (5 - 16) 10 10 11 BUN (7 - 17 mg/dL) 93 H 89 H 91 H Creatinine (0.5 - 1.0 mg/dL) 4.0 H 3.7 H 3.4 H Estimated GFR (>60 ml/min) 11 L 12 L 13 L BUN/Creatinine Ratio (7 - 25 %) 23.3 24.1 26.8 H Coagulation PT (9.4 - 12.5 SEC) 30.0 H 24.8 H 20.7 H INR (0.90 - 1.19) 2.89 H 2.38 H 1.98 H Imaging/Other Studies: Chest X-ray 10/10 EXAM TYPE: RAD - XRY-PORTABLE CHEST XRAY EXAMINATION: XR PORTABLE CHEST CLINICAL INFORMATION: Shortness of breath. COMPARISON: Chest 10/05/2017 at TECHNIQUE: Portable frontal view of the chest was obtained. FINDINGS: There is a moderate haziness right lung base likely from effusion and underlying atelectasis. Minimal haziness left lung base probably small left pleural effusion. There is cardiomegaly with increased pulmonary vascularity suggestive of vascular congestion or edema. No gross bony abnormality seen. IMPRESSION: Cardiomegaly with CHF. Moderate right and small left pleural effusion with underlying atelectasis. No major change from previous exam 10/05/2017.
[2017-10-13 14:36] VITALS: BP 142/69
--- NOTE | 2017-10-13 19:22 | PN- Cardiology ---
Subjective Subjective: No complaints. Breathing and edema continue to slowly improve. Objective Vital Signs and I&Os Vital Signs Date Time Temp Pulse Resp B/P B/P Pulse O2 O2 Flow FiO2 Mean Ox Delivery Rate 10/13 1600 96 Nasal 2.0L Cannula 10/13 1436 97.4 107 17 142/69 96 Nasal 2.0L Cannula 10/13 0905 90 128/64 10/13 0800 98 Nasal 2.0L Cannula 10/13 0656 98.3 109 16 128/64 98 Nasal Cannula 10/13 0000 Nasal 2.0L Cannula 10/12 2221 98.1 114 16 122/78 98 Nasal 2.0L Cannula 10/12 1955 132/72 Intake & Output 10/13 1600 10/13 0800 10/13 0000 10/12 1600 10/12 0800 10/12 0000 Intake Total 680 100 720 0 530 Output Total 1025 400 852 023 2123 1500 Balance -345 -300 -900 170 -1100 -970 Intake, Oral 680 100 720 0 530 Number 1 0 1 Bowel Movements Output, Urine 1025 400 392 959 0692 1500 Patient 237 lb 258 lb 239 lb Weight Weight Chair scale Bed scale Measurement Method Physical Exam: Overweight elderly female in no acute distress. Vital signs: See above. HEENT: Normocephalic, atraumatic, EOMI, slightly dry mucous membranes. Neck: No JVD, right carotid bruit vs transmitted systolic murmur. Lungs: Decreased breath sounds otherwise clear. Heart: S1, S2 (irregularly, irregular) with soft (grade 1-2/6) systolic murmur. Abdomen: Soft, nontender, positive bowel sounds. Extremities: 1-2+ bilateral lower extremity edema. Current Medications: Current Medications Sig/Cole Start time Last Medication Dose Route Stop Time Status Admin Acetaminophen 650 MG .STK-MED ONE 10/12 1945 DC PO 10/12 1946 Acetaminophen 650 MG Q6P PRN 10/04 1800 AC 10/12 PO 1954 Atorvastatin Calcium 40 MG 1700 10/04 1745 AC 10/13 PO 170 Calcitriol 0.25 MCG DAILY 10/11 1000 AC 10/13 PO 09 Diltiazem HCl 240 MG DAILY 10/11 1000 AC 10/13 PO 09 Febuxostat 40 MG DAILY 10/05 1000 AC 10/13 PO 09 Ferrous Sulfate 325 MG TID 10/04 2199 AC 10/13 PO 1706 Furosemide 80 MG 1800,0600,1200 10/13 1800 AC 10/13 IV 1815 Furosemide 80 MG TIDAC 10/13 1700 DC IV Furosemide 80 MG ONCE ONE 10/13 1230 DC 10/13 IV 10/13 1231 1249 Furosemide 80 MG 7:30 AM, & 4:30 PM 10/09 1630 DC 10/13 IV 0800 Insulin Aspart 0 TIDAC 10/05 0800 AC 10/13 SC 1707 Insulin Aspart 0 AT BEDTIME 10/04 2200 AC SC Metolazone 10 MG 0530 10/14 0530 AC PO 10/15 0531 Metolazone 10 MG DAILY AC 10/13 0700 DC 10/13 PO 10/15 0701 0654 Metoprolol Tartrate 37.5 MG BID 10/05 2200 AC 10/13 PO 0905 Morphine Sulfate 2 MG Q4P PRN 10/09 0915 AC IV Potassium Chloride 20 MEQ BID 10/14 1000 AC PO Potassium Chloride 40 MEQ ONCE ONE 10/13 1345 DC 10/13 PO 10/13 1346 1644 Potassium Chloride 40 MEQ ONCE ONE 10/13 0830 DC 10/13 PO 10/13 0831 1037 Potassium Chloride 20 MEQ DAILY 10/07 1524 DC 10/13 PO 0904 Sevelamer Carbonate 1,600 MG WM 10/05 0800 AC 10/13 PO 1707 Results Last 48 Hrs of Labs/Mics: Laboratory Tests 10/13/17 1325: Hepatitis A IgM Ab Cancelled, Hep Bs Antigen Cancelled, Hep B Core IgM Ab Conf Cancelled, Hepatitis C Antibody Cancelled 10/13/17 0621: Anion Gap 10, Estimated GFR 11 L, BUN/Creatinine Ratio 23.3, Magnesium 2.1, PT 30.0 H, INR 2.89 H, Hepatitis A IgM Ab NONREACTIVE, Hep Bs Antigen NONREACTIVE , Hep B Core IgM Ab Conf NONREACTIVE, Hepatitis C Antibody NONREACTIVE 10/12/17 0607: Anion Gap 10, Estimated GFR 12 L, BUN/Creatinine Ratio 24.1, PT 24.8 H, INR 2.38 H Assessment/Plan Assessment/Plan 72-y-o-w-f w/ hx gout, HLD, HTN, DM, CKD s/p RUE AV fistula 06/2016 w/o use necessity, ch anemia on RITO, & PAF s/p electrical CV following a CARI ~2015 w/ recurrence and successful antiarrhythmic Rx w/ chemical CV ~2017 who was recently hospitalized (08/23-09/01/2017) for AF w/ RVR and who gradually improved w/ standard therapy, but who became progressively SOB w/ wt gain at home over the past few weeks despite compliance w/ her diet & medical regimen and who was again found to be in AF w/ RVR & HFpEF. Feels improved following diuresis. Continue with present regimen. Continue telemetry? Not applicable (Off telemetry.)
[2017-10-13 23:03] VITALS: BP 140/60
[2017-10-14 06:07] VITALS: BP 140/82
[2017-10-14 08:34] LABS: PT 26.5 SEC (9.4-12.5)
--- NOTE | 2017-10-14 08:45 | PN- Housestaff ---
Cristhian BARBOUR,Lydia 10/14/17 0844: Subjective Follow-up For: Diastolic heart failure Atrial fibrillation on Coumadin Tele-Events Since Last Visit: Off Telemetry Subjective: Patient is seen and examined at bedside, denies any complaint, no acute events overnight, diuresed well over 2 L yesterday, negative fluid balance of 1200 cc, continues to refuse ALPS Review of Systems Constitutional: Reports: see HPI. Objective Last 24 Hrs of Vital Signs/I&O Vital Signs Date Time Temp Pulse Resp B/P B/P Pulse O2 O2 Flow FiO2 Mean Ox Delivery Rate 10/14 0830 120 140/82 10/14 0800 97 Nasal 2.0L Cannula 10/14 0607 97.8 124 20 140/82 98 10/13 2303 97.1 100 16 140/60 95 Nasal Cannula 10/13 2155 86 148/68 10/13 2048 Nasal 2.0L Cannula 10/13 1600 96 Nasal 2.0L Cannula 10/13 1436 97.4 107 17 142/69 96 Nasal 2.0L Cannula Intake & Output 10/14 1600 10/14 0800 10/14 0000 Intake Total 200 180 Output Total 700 750 Balance -500 -570 Intake, Oral 200 180 Number 1 Bowel Movements Output, Urine 700 750 Physical Exam General Appearance: Alert, Oriented X3, Cooperative, No Acute Distress HEENT: Atraumatic, PERRLA, EOMI, Mucous Membr. moist/pink Neck: Supple, No JVD Cardiovascular: Normal S1, Normal S2, No Murmurs Lungs: Clear to Auscultation Abdomen: Normal Bowel Sounds, Soft, No Tenderness Neurological: Normal Speech, Strength at 5/5 X4 Ext, Normal Tone, Sensation Intact Extremities: No Clubbing, No Cyanosis, 1 + pitting edema Vascular: Normal Pulses, Pulses Symmetrical Assessment/Plan Assessment: Patient is a 72-year-old female with past medical history significant for paroxysmal atrial fibrillation status post cardioversion 2 on coumadin, diabetes not on any medications currently, diabetic and hypertensive 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 Problem List; HFpEF(ejection fraction of 60% on recent echocardiogram). Atrial Fibrillation On coumadin - continue lasix to 60 mg three times a day and metolazone once daily before the morning dose of lasix. - Negative fluid balance of 2200 ml yesterday, Goal Weight of 220 per nephrology. Will continue to diurese. - Cr creeping up slowly, will repeat BEP in am to monitor renal function and Biacarb while on Lasix. - Supplemental O2 to keep O2 sats above 92%. -Today INR 2.55 and will give 1 dose of Coumadin 5 mg - NovoLog sliding scale. - Continue rest of home medications. DVT Prophylaxis: on coumadin Code: Full code Problem List: 1. Heart failure with preserved ejection fraction Pain Ratin Pain Location: n/a Pain Goal: Remain pain free Pain Plan: pathway Tomorrow's Labs & Rationales: cbc inr bep Consulting Request: Consulting Specialty: Nephrology Consulting Physician: Dr. Stevens Reason for Consult: CKD with intractable edema Geovanni BARBOUR,Richard 10/14/17 1044: Attending MD Review Statement Attending Statement Attending MD Statement: examined this patient, discuss w/resident/PA/FINANCIAL AID ADVISOR, agreed w/resident/PA/FINANCIAL AID ADVISOR, reviewed EMR data (avail), discussed with nursing, amended to note Attending Assessment/Plan: Patient seen and examined. Resting comfortably not in any acute distress. No issues overnight reported by nursing staff. Patient offers no new complaints this morning. Denies shortness of breath at rest. She diuresed just over 2 L of fluid yesterday and had a negative fluid balance of about 1200 cc. She has not been with so far today. Physical examination is unchanged. She has diminished breath sounds of the right lung base. She has bilateral pedal edema. She continues to refuse bilateral compression stockings. Recommendations: -Continue current dose of diuresis through the weekend. Continue to monitor fluid output and weight. -Nephrology service is aiming for a dry weight of 220 pounds. - patient encouraged to mobilize around the unit today. -If she fails to diurese appropriately with medical therapy she may require initiation of hemodialysis.
[2017-10-14 14:00] VITALS: BP 138/80
--- NOTE | 2017-10-14 14:16 | PN- Cardiology ---
Subjective Subjective: Shortness of breath improving. No chest pain. No palpitations. No diaphoresis. No nausea or vomiting Objective Vital Signs and I&Os Vital Signs Date Time Temp Pulse Resp B/P B/P Pulse O2 O2 Flow FiO2 Mean Ox Delivery Rate 10/14 0830 120 140/82 10/14 0800 97 Nasal 2.0L Cannula 10/14 0607 97.8 124 20 140/82 98 10/13 2303 97.1 100 16 140/60 95 Nasal Cannula 10/13 2155 86 148/68 10/13 2048 Nasal 2.0L Cannula 10/13 1600 96 Nasal 2.0L Cannula 10/13 1436 97.4 107 17 142/69 96 Nasal 2.0L Cannula Intake & Output 10/14 1600 10/14 0800 10/14 0000 10/13 1600 10/13 0800 10/13 0000 Intake Total 200 180 680 100 Output Total 018 690 7135 400 900 Balance -500 -570 -345 -300 -900 Intake, Oral 200 180 680 100 Number 1 1 Bowel Movements Output, Urine 524 348 5264 400 900 Patient 237 lb 258 lb Weight Weight Chair scale Bed scale Measurement Method Physical Exam: Overweight elderly female in no acute distress. Vital signs: See above. HEENT: Normocephalic, atraumatic, EOMI, slightly dry mucous membranes. Neck: No JVD, right carotid bruit vs transmitted systolic murmur. Lungs: Decreased breath sounds otherwise clear. Heart: S1, S2 (irregularly, irregular) with soft (grade 1-2/6) systolic murmur. Abdomen: Soft, nontender, positive bowel sounds. Extremities: 1-2+ bilateral lower extremity edema. Current Medications: Current Medications Sig/Cole Start time Last Medication Dose Route Stop Time Status Admin Acetaminophen 650 MG Q6P PRN 10/04 1800 AC 10/12 PO 1955 Atorvastatin Calcium 40 MG 1700 10/04 1745 AC 10/13 PO 1707 Calcitriol 0.25 MCG DAILY 10/11 1000 AC 10/14 PO 0823 Diltiazem HCl 240 MG DAILY 10/11 1000 AC 10/14 PO 0824 Febuxostat 40 MG DAILY 10/05 1000 AC 10/14 PO 0824 Ferrous Sulfate 325 MG TID 10/04 2200 AC 10/14 PO 0824 Furosemide 80 MG 1800,0600,1200 10/13 1800 AC 10/14 IV 1345 Furosemide 80 MG TIDAC 10/13 1700 DC IV Insulin Aspart 0 TIDAC 10/05 0800 AC 10/14 SC 1205 Insulin Aspart 0 AT BEDTIME 10/04 2200 AC 10/13 SC 2315 Metolazone 10 MG 0530 10/14 0530 AC 10/14 PO 10/15 0531 0529 Metoprolol Tartrate 37.5 MG BID 10/05 2200 AC 10/14 PO 0830 Morphine Sulfate 2 MG Q4P PRN 10/09 0915 AC IV Potassium Chloride 20 MEQ BID 10/14 1000 AC 10/14 PO 0823 Sevelamer Carbonate 1,600 MG WM 10/05 0800 AC 10/14 PO 1204 Warfarin Sodium 5 MG COUMADIN 1700 ONE 10/14 1700 AC PO 10/14 1701 Results Last 48 Hrs of Labs/Mics: Laboratory Tests 10/14/17 0620: Anion Gap 12, Estimated GFR 11 L, BUN/Creatinine Ratio 24.9, PT 26.5 H, INR 2.55 H 10/13/17 1325: Hepatitis A IgM Ab Cancelled, Hep Bs Antigen Cancelled, Hep B Core IgM Ab Conf Cancelled, Hepatitis C Antibody Cancelled 10/13/17 0621: Anion Gap 10, Estimated GFR 11 L, BUN/Creatinine Ratio 23.3, Magnesium 2.1, PT 30.0 H, INR 2.89 H, Hepatitis A IgM Ab NONREACTIVE, Hep Bs Antigen NONREACTIVE , Hep B Core IgM Ab Conf NONREACTIVE, Hepatitis C Antibody NONREACTIVE Recent Imaging Studies: Chest x-ray 10/10/17: Cardiomegaly with CHF. Moderate right and small left pleural effusion with underlying atelectasis. No major change from previous exam 10/05/2017. Assessment/Plan Assessment/Plan Assessment: 1. Hypertension 2. Diabetes mellitus 3. Paroxysmal atrial fibrillation 4. Acute HFpEF Plan: * Continue IV Lasix * Continue metolazone * Check basic metabolic profile daily * Monitor input and output * Continue other cardiac medication Continue telemetry? Yes
--- NOTE | 2017-10-14 15:42 | PN- Nephrology ---
Assessment/Plan Nephrology Assessment: Stage IV/V CKD - SCr oscillating around baseline. Subnephrotic range proteinuria. Edema - Not nephrosis. Clear extravascular volume expansion on chest imaging, physical exam, and by symptomatology. Has been difficult to maintain euvolemia as an outpatient. Diuretic dose increased. Her and I spoke at length and she understands that euvolemia may come at the cost of needing dialysis. Met acidosis - Had been on sodium bicarb for met acidosis but now has a met alkalosis requiring acetazolamide. Bicarb has been stopped. Anemia - Hg at goal 10-11 for CKD. Suggestion: -Cont lasix 80mg IV TID (6am, 12pm, 6pm) with 10mg PO metolazone given 30min prior to AM dose (metolazone can be written as "daily") -Increase lasix to 100mg IV TID if no meaningful change tomorrow and renal function relatively stable -Goal weight of 220lbs by discharge Please call [phone] with ?'s Subjective Subjective: SCr 3.9 Lasix is now 80mg IV TID - got 2 doses of 80mg IV lasix yesterday; continues on metolazone 10mg daily 2175cc UOP; no weight today Objective Vital Signs and I&Os Vital Signs Date Time Temp Pulse Resp B/P B/P Pulse O2 O2 Flow FiO2 Mean Ox Delivery Rate 10/14 1400 97.7 110 20 138/80 97 Nasal 2.0L Cannula 10/14 0830 120 140/82 / 0800 97 Nasal 2.0L Cannula 10/14 0607 97.8 124 20 140/82 98 03/02 2303 97.1 100 16 140/60 95 Nasal Cannula 10/13 2155 86 148/68 / 2048 Nasal 2.0L Cannula 10/13 1600 96 Nasal 2.0L Cannula Intake & Output 10/14 1600 10/14 0400 10/13 1600 10/13 0400 10/12 1600 10/12 0400 Intake Total 730 180 780 720 530 Output Total 3406 689 4805 900 1350 1800 Balance -820 -570 -645 -900 -630 -1270 Intake, IV 30 Intake, Oral 700 180 780 720 530 Number 1 1 0 1 Bowel Movements Output, Urine 0934 661 3909 900 1350 1800 Patient 237 lb 258 lb 239 lb Weight Weight Chair scale Bed scale Measurement Method Physical Exam: Gen - OK appearing HEENT- JVP up CV - RRR, no m/r/g Chest - bibasilar crackles Abd - soft, NTND Ext - +edema, REX AVF +thrill/+bruit Neuro - AOX3, grossly nonfocal Current Medications: Current Medications Sig/Cole Start time Last Medication Dose Route Stop Time Status Admin Acetaminophen 650 MG Q6P PRN 10/04 1800 AC 10/12 PO 1955 Atorvastatin Calcium 40 MG 1700 10/04 1745 AC 10/13 PO 1707 Calcitriol 0.25 MCG DAILY 10/11 1000 AC 10/14 PO 0823 Diltiazem HCl 240 MG DAILY 10/11 1000 AC 10/14 PO 0824 Febuxostat 40 MG DAILY 10/05 1000 AC 10/14 PO 0824 Ferrous Sulfate 325 MG TID 10/04 2200 AC 10/14 PO 0824 Furosemide 80 MG 1800,0600,1200 10/13 1800 AC 10/14 IV 1345 Furosemide 80 MG TIDAC 10/13 1700 DC IV Insulin Aspart 0 TIDAC 10/05 0800 AC 10/14 SC 1205 Insulin Aspart 0 AT BEDTIME 10/04 2200 AC 10/13 SC 2315 Metolazone 10 MG 0530 10/14 0530 AC 10/14 PO 10/15 0531 0529 Metoprolol Tartrate 37.5 MG BID 10/05 2200 AC 10/14 PO 0830 Morphine Sulfate 2 MG Q4P PRN 10/09 0915 AC IV Potassium Chloride 20 MEQ BID 10/14 1000 AC 10/14 PO 0823 Sevelamer Carbonate 1,600 MG WM 10/05 0800 AC 10/14 PO 1204 Warfarin Sodium 5 MG COUMADIN 1700 ONE 10/14 1700 AC PO 10/14 1701 Results Pertinent Lab Results: Laboratory Tests 10/14 10/13 10/13 10/12 0620 1325 0621 0607 Chemistry Sodium (137 - 145 mmol/L) 140 142 141 Potassium (3.5 - 5.1 mmol/L) 3.9 3.6 3.7 Chloride (98 - 107 mmol/L) 92 L 95 L 95 L Carbon Dioxide (22 - 30 mmol/L) 36 H 37 H 35 H Anion Gap (5 - 16) 12 10 10 BUN (7 - 17 mg/dL) 97 H 93 H 89 H Creatinine (0.5 - 1.0 mg/dL) 3.9 H 4.0 H 3.7 H Estimated GFR (>60 ml/min) 11 L 11 L 12 L BUN/Creatinine Ratio (7 - 25 %) 24.9 23.3 24.1 Magnesium (1.6 - 2.3 mg/dL) 2.1 Coagulation PT (9.4 - 12.5 SEC) 26.5 H 30.0 H 24.8 H INR (0.90 - 1.19) 2.55 H 2.89 H 2.38 H Serology Hepatitis A IgM Ab (NONREACTIVE) Cancelled NONREACTIVE Hep Bs Antigen (NONREACTIVE) Cancelled NONREACTIVE Hep B Core IgM Ab Conf (NONREACTIVE) Cancelled NONREACTIVE Hepatitis C Antibody (NONREACTIVE) Cancelled NONREACTIVE Imaging/Other Studies: No new imaging
[2017-10-14 22:27] VITALS: BP 140/82
[2017-10-15 07:44] VITALS: BP 128/57
[2017-10-15 08:24] LABS: PT 23.8 SEC (9.4-12.5)
[2017-10-15 08:46] LABS: ABSOLUTE BASOPHIL COUNT 0 /CUMM (0.0-0.2); ABSOLUTE EOSINOPHIL COUNT 0.5 /CUMM (0.0-0.7); ABSOLUTE GRANULOCYTE CT 5.8 /CUMM (1.4-6.5); ABSOLUTE LYMPH COUNT 1.7 /CUMM (1.2-3.4); ABSOLUTE MONOCYTE COUNT 0.7 /CUMM (0.10-0.60); BASOPHIL % 0.5 % (0.0-2.0); EOSINOPHIL % 5.7 % (0-5); GRANULOCYTE % 66.8 % (42.2-75.2); HEMATOCRIT 28.1 % (37-47); MEAN CORPUSCULAR HGB 27.8 PG (27.0-31.0); MEAN CORPUSCULAR HGB CONC 32.9 G/DL (33.0-37.0); MEAN CORPUSCULAR VOLUME 84.3 FL (81.0-99.0); MEAN PLATELET VOLUME 9.6 FL (7.4-10.4); PLATELET COUNT 166 /CUMM (130-400); RBC DISTRIBUTION WIDTH 16.2 % (11.5-14.5); RED BLOOD CELL CT 3.33 /CUMM (4.20-5.40); WHITE BLOOD CELL COUNT 8.6 /CUMM (4.8-10.8)
--- NOTE | 2017-10-15 10:51 | PN- Att Addend ---
Attending Addendum Attending Brief Note Patient seen and examined. Resting comfortably not in acute distress. She reports that yesterday after lunch she vomited on 2 occasions. She reports skipping been on account of this. She reports feeling better this morning and is able to tolerate her breakfast. She complained of abdominal cramping during the episode but denies any cramping pain this morning. Denies any diarrhea. She is afebrile. She remains hemodynamically stable. October 04, 2017; 244 pounds. October 13, 2017; 235 pounds. Today; 229 pounds. Vital Signs Date Time Temp Pulse Resp B/P B/P Pulse O2 O2 Flow FiO2 Mean Ox Delivery Rate 10/15 0800 98 Nasal 2.0L Cannula 10/15 0753 66 128/57 10/15 0744 98.0 66 18 128/57 96 10/14 2229 88 144/82 10/14 2227 97.3 103 20 140/82 96 Nasal Cannula 10/14 2212 Nasal 2.0L Cannula 10/14 1400 97.7 110 20 138/80 97 Nasal 2.0L Cannula Intake & Output 10/15 1600 10/15 0800 10/15 0000 Intake Total 120 100 Output Total 600 Balance -480 100 Intake, Oral 120 100 Output, Urine 600 Patient 104.043 kg Weight Weight Chair scale Measurement Method General appearance: Well-developed, not in acute distress. Heart: S1-S2 irregular. Lungs: Improved air entry right lung base. Abdomen: Soft, nontender with normal bowel sounds. Extremities: Bilateral pedal edema. Intact dressing over left foot. Laboratory Tests 10/15/17 0650: Anion Gap 12, Estimated GFR 11 L, BUN/Creatinine Ratio 25.3 H, PT 23.8 H, INR 2.17 H, CBC w Diff NO MAN DIFF REQ, RBC 3.33 L, MCV 84.3, MCH 27.8, MCHC 32.9 L, RDW 16.2 H, MPV 9.6, Gran % 66.8, Lymphocytes % 19.2 L, Monocytes % 7.8, Eosinophils % 5.7 H, Basophils % 0.5, Absolute Granulocytes 5.8, Absolute Lymphocytes 1.7, Absolute Monocytes 0.7 H, Absolute Eosinophils 0.5, Absolute Basophils 0 Problems: 1. Acute on chronic diastolic heart failure. 2. Chronic kidney disease stage IV. 3. Paroxysmal atrial fibrillation on anticoagulation therapy. 4. Hypertension 5. Diabetes mellitus. 6. Nausea vomiting. Plan: -Patient appears to be diuresing appropriately. She is down 15 pounds since admission. However this is with very aggressive diuresis. It is unclear how she will fare at the time of discharge given her advanced kidney disease. She already has dialysis access in place should she require hemodialysis in the future. She is still 9 pounds above her target weight. I would anticipate achieving this week within the next few days on her current regimen. Her BUN and creatinine are trending upwards however this is acceptable per the nephrology service -Repeat chest x-ray in a.m. to evaluate progress of her right pleural effusion. -Etiology of her nausea vomiting is unclear. Provide Zofran as needed. Will monitor closely for recurrence of symptoms.
--- NOTE | 2017-10-15 12:11 | PN- Housestaff ---
Subjective Follow-up For: Acute on chronic diastolic heart failure CKD stage IV Paroxysmal atrial fibrillation Hypertension Diabetes Complaints: c/o nausea Tele-Events Since Last Visit: GM hold Subjective: Patient is seen and examined at bedside. She was eating her lunch. According to her, she had episodes of vomiting yesterday after the lunch. I discussed with him that we gave antinausea medication today. Hopefully, she will not get any vomiting today. She feels much better. Review of Systems Constitutional: Reports: no symptoms (weakness). Objective Last 24 Hrs of Vital Signs/I&O Vital Signs Date Time Temp Pulse Resp B/P B/P Pulse O2 O2 Flow FiO2 Mean Ox Delivery Rate 10/15 08 98 Nasal 2.0L Cannula 10/15 0753 66 128/57 10/15 0744 98.0 66 18 128/57 96 10/14 2229 88 144/82 10/14 2227 97.3 103 20 140/82 96 Nasal Cannula 10/14 2212 Nasal 2.0L Cannula Intake & Output 10/15 1600 10/15 0800 10/15 0000 Intake Total 120 100 Output Total 600 Balance -480 100 Intake, Oral 120 100 Output, Urine 600 Patient 104.043 kg Weight Weight Chair scale Measurement Method Physical Exam General Appearance: Alert, Oriented X3, Cooperative, No Acute Distress Skin: No Rashes Neck: Supple, No JVD Cardiovascular: Normal S1, Normal S2 Lungs: decreased air entry, especially in the right base Extremities: bilateral lower leg edema, left leg is under dressing. Vascular: cannot palpate due to edema Current Medications: Current Medications Sig/Cole Start time Last Medication Dose Route Stop Time Status Admin Acetaminophen 650 MG Q6P PRN 10/04 1800 AC 10/15 PO 0627 Atorvastatin Calcium 40 MG 1700 10/04 1745 AC 10/13 PO 1707 Calcitriol 0.25 MCG DAILY 10/11 1000 AC 10/15 PO 0752 Diltiazem HCl 240 MG DAILY 10/11 1000 AC 10/15 PO 0752 Febuxostat 40 MG DAILY 10/05 1000 AC 10/15 PO 0752 Ferrous Sulfate 325 MG TID 10/04 220 AC 10/15 PO 0752 Furosemide 80 MG 1800,0600,1200 10/13 1800 AC 10/15 IV 1202 Insulin Aspart 0 TIDAC 10/05 0800 AC 10/15 SC 1202 Insulin Aspart 0 AT BEDTIME 10/04 2199 AC 10/13 IN 2315 Metolazone 10 MG 0530 10/14 0530 DC 10/15 PO 10/15 0531 0625 Metoprolol Tartrate 37.5 MG BID 10/05 2199 AC 10/15 PO 0753 Morphine Sulfate 2 MG Q4P PRN 10/09 0915 AC IV Potassium Chloride 20 MEQ BID 10/14 1000 AC 10/15 PO 0752 Sevelamer Carbonate 1,600 MG WM 10/05 0800 AC 10/15 PO 1201 Warfarin Sodium 5 MG COUMADIN 1700 10/15 1700 AC PO 10/15 2359 Warfarin Sodium 5 MG COUMADIN 1700 ONE 10/14 1700 DC 10/14 PO 10/14 1701 1851 Last 24 Hrs of Lab/Rayshawn Results Last 24 Hrs of Labs/Mics: Laboratory Tests 10/15/17 0650: Anion Gap 12, Estimated GFR 11 L, BUN/Creatinine Ratio 25.3 H, PT 23.8 H, INR 2.17 H, CBC w Diff NO MAN DIFF REQ, RBC 3.33 L, MCV 84.3, MCH 27.8, MCHC 32.9 L, RDW 16.2 H, MPV 9.6, Gran % 66.8, Lymphocytes % 19.2 L, Monocytes % 7.8, Eosinophils % 5.7 H, Basophils % 0.5, Absolute Granulocytes 5.8, Absolute Lymphocytes 1.7, Absolute Monocytes 0.7 H, Absolute Eosinophils 0.5, Absolute Basophils 0 Assessment/Plan Assessment: Patient is a 72-year-old male with significant past medical history of paroxysmal atrial fibrillation status post cardioversion on Coumadin, diabetes, hypertension, nephropathy, hypertension, hyperlipidemia, history of right external carotid artery stenosis, secondary hyperparathyroidism, gout, presented with worsening shortness of breath.a chest x-ray at the time of admission were showing pulmonary vascular congestion with right-sided pleural effusion, she was started on IV diuresis for CHF. After discussing with Dr. Stevens we kept her target weight of 220 pounds. We added tablet, metolazone 10 milligrams given 30 minutes prior to a.m. dose. Today -vital signs temperature 98.0, pulse 66, respiratory rate 18, blood pressure 120/57, SPO2 96%. Today, her weight is 229 LB -yesterday it was 237. Intake/output - 720. BUN/creatinine 101/4. PT/INR 23.8/2.17 Assessment and plan - * We'll continue the same diuretic dose of Lasix with adequate metolazone. * Daily weight measurement. * Strict intake output charting. * Daily measurement of BUN/creatinine * We will repeat chest x-ray tomorrow to evaluate for right-sided pleural effusion. * Appreciate cardiology/nephrology recommendation * We gave 2 milligrams of warfarin today and will repeat PT/INR tomorrow * FC * DVT prophylaxis - Coumadin Problem List: 1. Heart failure with preserved ejection fraction 2. Afib Pain Ratin Pain Location: n/a Pain Goal: Remain pain free Pain Plan: avoid NSAIDS Tomorrow's Labs & Rationales: CBC, BEP, PT/INR for f/u DVT/Prophylaxis: pharmacological Consulting Request: Consulting Specialty: Nephrology Consulting Physician: Dr. Stevens Reason for Consult: CKD with intractable edema
--- NOTE | 2017-10-15 13:59 | PN- Cardiology ---
Subjective Subjective: Shortness of breath is improving. No chest pain. No palpitations. No diaphoresis. Objective Vital Signs and I&Os Vital Signs Date Time Temp Pulse Resp B/P B/P Pulse O2 O2 Flow FiO2 Mean Ox Delivery Rate 10/15 0800 98 Nasal 2.0L Cannula 10/15 0753 66 128/57 10/15 0744 98.0 66 18 128/57 96 10/14 2229 88 144/82 10/14 2227 97.3 103 20 140/82 96 Nasal Cannula 10/14 2212 Nasal 2.0L Cannula 10/14 1400 97.7 110 20 138/80 97 Nasal 2.0L Cannula Intake & Output 10/15 1600 10/15 0800 10/15 0000 10/14 1600 10/14 0800 10/14 0000 Intake Total 120 100 530 200 180 Output Total 600 850 700 750 Balance -480 100 -320 -500 -570 Intake, IV 30 Intake, Oral 120 100 500 200 180 Number 1 Bowel Movements Output, Urine 600 850 700 750 Patient 229 lb Weight Weight Chair scale Measurement Method Physical Exam: HEENT: Normocephalic, atraumatic, EOMI, slightly dry mucous membranes. Neck: No JVD, right carotid bruit vs transmitted systolic murmur. Lungs: Decreased breath sounds otherwise clear. Heart: S1, S2 (irregularly, irregular) with soft (grade 1-2/6) systolic murmur. Abdomen: Soft, nontender, positive bowel sounds. Extremities: 1-2+ bilateral lower extremity edema. Current Medications: Current Medications Sig/Cole Start time Last Medication Dose Route Stop Time Status Admin Acetaminophen 650 MG Q6P PRN 10/04 1800 AC 10/15 PO 0627 Atorvastatin Calcium 40 MG 1700 10/04 1745 AC 10/13 PO 1707 Calcitriol 0.25 MCG DAILY 10/11 1000 AC 10/15 PO 0752 Diltiazem HCl 240 MG DAILY 10/11 1000 AC 10/15 PO 0752 Febuxostat 40 MG DAILY 10/05 1000 AC 10/15 PO 0752 Ferrous Sulfate 325 MG TID 10/04 2199 AC 10/15 PO 0752 Furosemide 80 MG 1800,0600,1200 10/13 1800 AC 10/15 IV 1202 Insulin Aspart 0 TIDAC 10/05 0800 AC 10/15 SC 1202 Insulin Aspart 0 AT BEDTIME 10/04 2199 AC 10/13 SC 2315 Metolazone 10 MG 0530 10/14 0530 DC 10/15 PO 10/15 0531 0625 Metoprolol Tartrate 37.5 MG BID 10/05 2200 AC 10/15 PO 0753 Morphine Sulfate 2 MG Q4P PRN 10/09 0915 AC IV Potassium Chloride 20 MEQ BID 10/14 1000 AC 10/15 PO 0752 Sevelamer Carbonate 1,600 MG WM 10/05 0800 AC 10/15 PO 1201 Warfarin Sodium 5 MG COUMADIN 1700 10/15 1700 AC PO 10/15 2359 Warfarin Sodium 5 MG COUMADIN 1700 ONE 10/14 1700 DC 10/14 PO 10/14 1701 1851 Results Last 48 Hrs of Labs/Mics: Laboratory Tests 10/15/17 0650: Anion Gap 12, Estimated GFR 11 L, BUN/Creatinine Ratio 25.3 H, PT 23.8 H, INR 2.17 H, CBC w Diff NO MAN DIFF REQ, RBC 3.33 L, MCV 84.3, MCH 27.8, MCHC 32.9 L, RDW 16.2 H, MPV 9.6, Gran % 66.8, Lymphocytes % 19.2 L, Monocytes % 7.8, Eosinophils % 5.7 H, Basophils % 0.5, Absolute Granulocytes 5.8, Absolute Lymphocytes 1.7, Absolute Monocytes 0.7 H, Absolute Eosinophils 0.5, Absolute Basophils 0 10/14/17 0620: Anion Gap 12, Estimated GFR 11 L, BUN/Creatinine Ratio 24.9, PT 26.5 H, INR 2.55 H Assessment/Plan Assessment/Plan Assessment: 1. Hypertension 2. Diabetes mellitus 3. Paroxysmal atrial fibrillation 4. Acute HFpEF Plan: * Continue IV Lasix * Continue metolazone * Check basic metabolic profile daily * Monitor input and output * Continue other cardiac medication Continue telemetry? Yes
[2017-10-15 14:00] VITALS: BP 130/60
[2017-10-15 22:22] VITALS: BP 134/78
[2017-10-16 06:41] VITALS: BP 128/74
--- NOTE | 2017-10-16 07:45 | PN- Housestaff ---
Lorelei BARBOUR,[facility] 10/16/17 0744: Subjective Follow-up For: HFpEF Acute on chronic CKD from diuretic use Atrial Fibrillation on Coumadin Tele-Events Since Last Visit: Off Telemetry Subjective: Patient reports improvement in her symptoms but frustrated about going to the bathroom every 20 min to pee. Also wants to know the results of her CXR which was done this am. Review of Systems Constitutional: Reports: no symptoms. EENTM: Reports: no symptoms. Cardiovascular: Reports: orthopena, peripheral edema. Respiratory: Reports: orthopnea, short of breath. Gastrointestinal: Reports: no symptoms. Genitourinary: Reports: frequency. Musculoskeletal: Reports: no symptoms. Skin: Reports: no symptoms. Neurological/Psychological: Reports: no symptoms. Hematologic/Endocrine: Reports: no symptoms. Immunologic/Allergic: Reports: no symptoms. Objective Last 24 Hrs of Vital Signs/I&O Vital Signs Date Time Temp Pulse Resp B/P B/P Pulse O2 O2 Flow FiO2 Mean Ox Delivery Rate 10/16 1406 97.6 101 20 118/66 99 Nasal 2.0L Cannula 10/16 0904 68 128/74 03/05 0800 98 Nasal 2.0L Cannula / 0641 98.1 68 20 128/74 98 Nasal Cannula / 2222 98.0 99 20 134/78 96 Nasal Cannula 10/15 2200 Nasal 2.0L Cannula 10/15 2142 99 Intake & Output / 1600 /05 0800 03/ 0000 Intake Total 500 68 100 Output Total 775 300 Balance -275 -232 100 Intake, IV 18 Intake, Oral 500 50 100 Number 0 0 Bowel Movements Output, Urine 775 300 Patient 224 lb Weight Weight Chair scale Measurement Method Physical Exam General Appearance: Alert, Oriented X3, Cooperative, No Acute Distress Skin: No Rashes, No Breakdown Cardiovascular: Normal S1, Normal S2, Irregular Lungs: Decreased breath sounds in bilateral lung bases Abdomen: Normal Bowel Sounds, Soft, No Tenderness Extremities: No Clubbing, No Cyanosis, +1 pitting edema bilaterally Current Medications: Current Medications Sig/Cole Start time Last Medication Dose Route Stop Time Status Admin Acetaminophen 650 MG Q6P PRN 10/04 1800 AC 10/15 PO 214 Atorvastatin Calcium 40 MG 1700 10/04 1745 AC 10/15 PO 171 Calcitriol 0.25 MCG DAILY 10/11 1000 AC 10/16 PO 0904 Diltiazem HCl 240 MG DAILY 10/11 1000 AC 10/16 PO 0904 Febuxostat 40 MG DAILY 10/05 1000 AC 10/16 PO 0904 Ferrous Sulfate 325 MG TID 10/04 2199 AC 10/16 PO 0904 Furosemide 80 MG 1800,0600,1200 10/13 1800 AC 10/16 IV 1244 Insulin Aspart 0 TIDAC 10/05 0800 AC 10/16 SC 1205 Insulin Aspart 0 AT BEDTIME 10/04 2200 AC 10/13 SC 2315 Metolazone 10 MG 0530 10/16 1200 AC 10/16 PO 10/18 0531 1205 Metoprolol Tartrate 37.5 MG BID 10/05 2199 AC 10/16 PO 09 Morphine Sulfate 2 MG Q4P PRN 10/09 0915 DC IV Potassium Chloride 20 MEQ BID 10/14 1000 AC 10/16 PO 0904 Sevelamer Carbonate 1,600 MG WM 10/05 0800 AC 10/16 PO 1205 Warfarin Sodium 5 MG COUMADIN 1700 10/16 1700 AC PO Warfarin Sodium 5 MG COUMADIN 1700 10/15 1700 DC 10/15 PO 10/15 2359 1713 Last 24 Hrs of Lab/Rayshawn Results Last 24 Hrs of Labs/Mics: Laboratory Tests 10/16/17 0646: Anion Gap 12, Estimated GFR 11 L, BUN/Creatinine Ratio 26.3 H, Iron 34 L, TIBC Pending, Ferritin Pending, Vitamin B12 468, Folate 9.8, PT 25.6 H, INR 2.33 H, CBC w Diff NO MAN DIFF REQ, RBC 3.34 L, MCV 83.9, MCH 27.7, MCHC 33.1, RDW 15.8 H, MPV 9.5, Gran % 61.6, Lymphocytes % 21.1, Monocytes % 9.7 H, Eosinophils % 6.7 H, Basophils % 0.9, Absolute Granulocytes 4.8, Absolute Lymphocytes 1.7, Absolute Monocytes 0.8 H, Absolute Eosinophils 0.5, Absolute Basophils 0.1, Retic Count 1.48 Assessment/Plan Assessment: Patient is a 72-year-old female with past medical history significant for paroxysmal atrial fibrillation status post cardioversion 2 on coumadin, diabetes not on any medications currently, diabetic and hypertensive 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 Problem List; HFpEF(ejection fraction of 60% on recent echocardiogram). Acute on chronic CKD likely from diuretic use Atrial Fibrillation on Coumadin - Continue lasix to 60 mg three times a day and metolazone once daily before the morning dose of lasix. - Negative fluid balance of 1100ml yesterday, with weight loss from 247 to 224 since admission. Goal Weight of 220 per nephrology. - Cr creeping up slowly, will repeat BEP in am to monitor renal function and Biacarb while on Lasix. - Supplemental O2 to keep O2 sats above 92%. -Today INR 2.33 and will give 1 dose of Coumadin 5 mg - NovoLog sliding scale. - Continue rest of home medications. DVT Prophylaxis: on coumadin Code: Full code Problem List: 1. Heart failure with preserved ejection fraction 2. Leg swelling 3. Dyspnea 4. Afib Pain Ratin Pain Location: None Pain Goal: Remain pain free Pain Plan: None Tomorrow's Labs & Rationales: BEP(On IV lasix, Hx of CKD) Consulting Request: Consulting Specialty: Nephrology Consulting Physician: Dr. Stevens Reason for Consult: CKD with intractable edema Geovanni BARBOUR,Richard 10/16/17 0944: Attending MD Review Statement Attending Statement Attending MD Statement: examined this patient, discuss w/resident/PA/THEORETICAL PHYSICIST, agreed w/resident/PA/THEORETICAL PHYSICIST, reviewed EMR data (avail), discussed with nursing, discussed with case mgmt, amended to note Attending Assessment/Plan: Patient seen and examined. Resting comfortably and not in any acute distress. No issues overnight. No new complaints this morning. She continues to diurese appropriately. Her weight is down to 22 pounds today from 229 pounds yesterday. We anticipate in the next 24-48 hours she will achieve her goal weight of 220 pounds. The challenge however we will be keeping the patient out of the hospital given her advanced renal disease. There is a possibility of patient reaccumulating fluid again and ended up back in the hospital as she has advanced renal disease. At that point in time she may be strongly considered for initiation of hemodialysis. Another issue for the renal service to consider is that patient does not find the 3 times daily dosing of her diuretic convenient. She reports spending practically the whole be running to the bathroom. Will discuss this further with the nephrology service. We will follow-up chest x-ray today to evaluate the state ofher right pleural effusion.
[2017-10-16 08:05] LABS: ABSOLUTE BASOPHIL COUNT 0.1 /CUMM (0.0-0.2); ABSOLUTE EOSINOPHIL COUNT 0.5 /CUMM (0.0-0.7); ABSOLUTE GRANULOCYTE CT 4.8 /CUMM (1.4-6.5); ABSOLUTE LYMPH COUNT 1.7 /CUMM (1.2-3.4); ABSOLUTE MONOCYTE COUNT 0.8 /CUMM (0.10-0.60); BASOPHIL % 0.9 % (0.0-2.0); EOSINOPHIL % 6.7 % (0-5); GRANULOCYTE % 61.6 % (42.2-75.2); MEAN CORPUSCULAR HGB 27.7 PG (27.0-31.0); MEAN CORPUSCULAR HGB CONC 33.1 G/DL (33.0-37.0); MEAN CORPUSCULAR VOLUME 83.9 FL (81.0-99.0); MEAN PLATELET VOLUME 9.5 FL (7.4-10.4); PLATELET COUNT 162 /CUMM (130-400); RBC DISTRIBUTION WIDTH 15.8 % (11.5-14.5); RED BLOOD CELL CT 3.34 /CUMM (4.20-5.40); WHITE BLOOD CELL COUNT 7.8 /CUMM (4.8-10.8)
[2017-10-16 08:29] LABS: PT 25.6 SEC (9.4-12.5)
--- NOTE | 2017-10-16 11:02 | PN- Nephrology ---
See Addendum Assessment/Plan Nephrology Assessment: Stage IV/V CKD - SCr oscillating around baseline. Subnephrotic range proteinuria. Edema - Not nephrosis. Clear extravascular volume expansion on chest imaging, physical exam, and by symptomatology. Has been difficult to maintain euvolemia as an outpatient. Diuretic dose increased. Her and I spoke at length and she understands that euvolemia may come at the cost of needing dialysis. Met acidosis - Had been on sodium bicarb for met acidosis but now has a met alkalosis requiring acetazolamide. Bicarb has been stopped. Anemia - Hg now dipping below goal. If continues to drop will need to start RITO. Can check iron stores, folate, Vit B12, Retic count, stool guaiac. Suggestion: -Cont lasix 80mg IV TID but I would also give metolazone 10mg daily (30min prior to one of the first 2 lasix doses) -Check iron stores, folate, Vit B12, Retic count, stool guaiac - may need to start RITO Please call [phone] with ?'s Subjective Subjective: SCr stable at 4.0 1850cc UOP Weight down to 224 Breathing a bit better Objective Vital Signs and I&Os Vital Signs Date Time Temp Pulse Resp B/P B/P Pulse O2 O2 Flow FiO2 Mean Ox Delivery Rate 03/ 0904 68 128/74 03/ 0800 98 Nasal 2.0L Cannula / 0641 98.1 68 20 128/74 98 Nasal Cannula / 2222 98.0 99 20 134/78 96 Nasal Cannula / 2200 Nasal 2.0L Cannula / 2142 99 03/04 1400 97.9 80 20 130/60 97 Nasal Cannula Intake & Output / 1600 03/05 0400 /04 1600 03/04 0400 03/ 1600 03/03 0400 Intake Total 68 100 620 100 730 180 Output Total 300 1850 1550 750 Balance -232 100 -1230 100 -820 -570 Intake, IV 18 30 Intake, Oral 50 100 620 100 700 180 Number 0 0 1 Bowel Movements Output, Urine 300 1850 1550 750 Patient 224 lb 229 lb Weight Weight Chair scale Chair scale Measurement Method Physical Exam: Gen - OK appearing HEENT - JVP visible sitting up CV - RRR, no m/r/g Chest - scant L basilar crackles Abd - soft, NTND Ext - 1+ edema Neuro - AOX3, grossly nonfocal Current Medications: Current Medications Sig/Cole Start time Last Medication Dose Route Stop Time Status Admin Acetaminophen 650 MG Q6P PRN 10/04 1800 AC 10/15 PO 2143 Atorvastatin Calcium 40 MG 1700 10/04 1745 AC 10/15 PO 1712 Calcitriol 0.25 MCG DAILY 10/11 1000 AC 10/16 PO 0904 Diltiazem HCl 240 MG DAILY 10/11 1000 AC 10/16 PO 0904 Febuxostat 40 MG DAILY 10/05 1000 AC 10/16 PO 0904 Ferrous Sulfate 325 MG TID 10/04 2200 AC 10/16 PO 0904 Furosemide 80 MG 1800,0600,1200 10/13 1800 AC 10/16 IV 0655 Insulin Aspart 0 TIDAC 10/05 0800 AC 10/16 SC 0819 Insulin Aspart 0 AT BEDTIME 10/04 2200 AC 10/13 SC 2315 Metoprolol Tartrate 37.5 MG BID 10/05 2200 AC 10/16 PO 0904 Morphine Sulfate 2 MG Q4P PRN 10/09 0915 DC IV Potassium Chloride 20 MEQ BID 10/14 1000 AC 10/16 PO 0904 Sevelamer Carbonate 1,600 MG WM 10/05 0800 AC 10/16 PO 0817 Warfarin Sodium 5 MG COUMADIN 1700 10/15 1700 DC 10/15 PO 10/15 2359 1713 Results Pertinent Lab Results: Laboratory Tests 10/16 10/15 0646 0650 Chemistry Sodium (137 - 145 mmol/L) 139 140 Potassium (3.5 - 5.1 mmol/L) 3.7 3.5 Chloride (98 - 107 mmol/L) 91 L 92 L Carbon Dioxide (22 - 30 mmol/L) 36 H 37 H Anion Gap (5 - 16) 12 12 BUN (7 - 17 mg/dL) 105 *H 101 *H Creatinine (0.5 - 1.0 mg/dL) 4.0 H 4.0 H Estimated GFR (>60 ml/min) 11 L 11 L BUN/Creatinine Ratio (7 - 25 %) 26.3 H 25.3 H Coagulation PT (9.4 - 12.5 SEC) 25.6 H 23.8 H INR (0.90 - 1.19) 2.33 H 2.17 H Hematology CBC w Diff NO MAN DIFF REQ NO MAN DIFF REQ WBC (4.8 - 10.8 /CUMM) 7.8 8.6 RBC (4.20 - 5.40 /CUMM) 3.34 L 3.33 L Hgb (12.0 - 16.0 G/DL) 9.3 L 9.2 L Hct (37 - 47 %) 28.0 L 28.1 L MCV (81.0 - 99.0 FL) 83.9 84.3 MCH (27.0 - 31.0 PG) 27.7 27.8 MCHC (33.0 - 37.0 G/DL) 33.1 32.9 L RDW (11.5 - 14.5 %) 15.8 H 16.2 H Plt Count (130 - 400 /CUMM) 162 166 MPV (7.4 - 10.4 FL) 9.5 9.6 Gran % (42.2 - 75.2 %) 61.6 66.8 Lymphocytes % (20.5 - 51.1 %) 21.1 19.2 L Monocytes % (1.7 - 9.3 %) 9.7 H 7.8 Eosinophils % (0 - 5 %) 6.7 H 5.7 H Basophils % (0.0 - 2.0 %) 0.9 0.5 Absolute Granulocytes (1.4 - 6.5 /CUMM) 4.8 5.8 Absolute Lymphocytes (1.2 - 3.4 /CUMM) 1.7 1.7 Absolute Monocytes (0.10 - 0.60 /CUMM) 0.8 H 0.7 H Absolute Eosinophils (0.0 - 0.7 /CUMM) 0.5 0.5 Absolute Basophils (0.0 - 0.2 /CUMM) 0.1 0 03/03 03/02 0620 1325 Chemistry Sodium (137 - 145 mmol/L) 140 Potassium (3.5 - 5.1 mmol/L) 3.9 Chloride (98 - 107 mmol/L) 92 L Carbon Dioxide (22 - 30 mmol/L) 36 H Anion Gap (5 - 16) 12 BUN (7 - 17 mg/dL) 97 H Creatinine (0.5 - 1.0 mg/dL) 3.9 H Estimated GFR (>60 ml/min) 11 L BUN/Creatinine Ratio (7 - 25 %) 24.9 Coagulation PT (9.4 - 12.5 SEC) 26.5 H INR (0.90 - 1.19) 2.55 H Serology Hepatitis A IgM Ab Cancelled Hep Bs Antigen Cancelled Hep B Core IgM Ab Conf Cancelled Hepatitis C Antibody Cancelled Imaging/Other Studies: TTE CONCLUSIONS 1. Normal EF of 60%. 2. Moderate left ventricular hypertrophy. 3. Moderate left atrial enlargement. 4. Mild mitral regurgitation. 5. Moderate tricuspid regurgitation. 6. Mild aortic sclerosis with mild aortic regurgitation. 7. Mild pulmonic regurgitation. 8. Moderate to severe pulmonary hypertension.
--- NOTE | 2017-10-16 13:30 | RADIOLOGY REPORT ---
EXAMINATION: XR CHEST CLINICAL INFORMATION: Shortness of breath. Need to monitor for pleural effusion. COMPARISON: Several prior chest x-rays, most recent of which is dated 10/10/2017. TECHNIQUE: 2 views of the chest were obtained on 3 images. FINDINGS: The cardiomediastinal silhouette is enlarged. Calcification of the aortic arch is seen. Lungs continue to demonstrate patchy opacities in the mid and lower lungs, right more than left, mildly improved when compared to the prior exam, likely a combination of pleural effusion and associated airspace disease or atelectasis. There is mild central vascular congestion. No overt pulmonary edema is seen. No pneumothorax is noted. Arterial vascular calcifications are seen in the axillae bilaterally. Bony structures are unremarkable. IMPRESSION: 1. Mildly improved bilateral opacities in the lung bases, likely due to persistent small pleural effusions and associated airspace disease or atelectasis. 2. Mild central vascular congestion.
[2017-10-16 14:06] VITALS: BP 118/66
--- NOTE | 2017-10-16 18:49 | PN- Cardiology ---
Subjective Subjective: No specific complaints. Feels as though her breathing and edema continued to slowly improve. Objective Vital Signs and I&Os Vital Signs Date Time Temp Pulse Resp B/P B/P Pulse O2 O2 Flow FiO2 Mean Ox Delivery Rate 10/16 1600 99 Nasal 2.0L Cannula 10/16 1406 97.6 101 20 118/66 99 Nasal 2.0L Cannula 10/16 0904 68 128/74 10/16 0800 98 Nasal 2.0L Cannula 10/16 0641 98.1 68 20 128/74 98 Nasal Cannula 10/15 2222 98.0 99 20 134/78 96 Nasal Cannula 10/15 2200 Nasal 2.0L Cannula 10/15 2142 99 Intake & Output 10/16 1600 10/16 0800 10/16 0000 10/15 1600 10/15 0800 10/15 0000 Intake Total 500 68 100 500 120 100 Output Total 290 122 7258 600 Balance -275 -232 100 -750 -480 100 Intake, IV 18 Intake, Oral 500 50 100 500 120 100 Number 0 0 Bowel Movements Output, Urine 251 128 7217 600 Patient 224 lb 229 lb Weight Weight Chair scale Chair scale Measurement Method Physical Exam: Overweight elderly female in no acute distress. Vital signs: See above. HEENT: Normocephalic, atraumatic, EOMI, slightly dry mucous membranes. Neck: No JVD, right carotid bruit vs transmitted systolic murmur. Lungs: Decreased breath sounds otherwise clear. Heart: S1, S2 (irregularly, irregular) with soft (grade 1-2/6) systolic murmur. Abdomen: Soft, nontender, positive bowel sounds. Extremities: 1-2+ bilateral lower extremity edema. Assessment/Plan Assessment/Plan [id number] w/ hx gout, HLD, HTN, DM, CKD s/p RUE AV fistula 06/2016 w/o use necessity, ch anemia on RITO, & PAF s/p electrical CV following a CARI ~2015 w/ recurrence and successful antiarrhythmic Rx w/ chemical CV ~2016 who was recently hospitalized (08/23-09/01/2017) for AF w/ RVR and who gradually improved w/ standard therapy, but who became progressively SOB w/ wt gain at home over the past few weeks despite compliance w/ her diet & medical regimen and who was again found to be in AF w/ RVR & HFpEF. Feels improved following diuresis. Continue with present regimen. Continue telemetry? No
[2017-10-16 21:56] VITALS: BP 144/70
[2017-10-17 07:01] VITALS: BP 128/64
--- NOTE | 2017-10-17 07:15 | PN- Housestaff ---
Lorelei BARBOUR,Sandra 10/17/17 0714: Subjective Follow-up For: - HFpEF(ejection fraction of 60% on recent echocardiogram). - Acute on chronic CKD likely from diuretic use - Atrial Fibrillation on Coumadin Tele-Events Since Last Visit: Off telemtry Subjective: Patient sitting comfortably in chair, no new complaints. Review of Systems Constitutional: Reports: no symptoms. EENTM: Reports: no symptoms. Cardiovascular: Reports: orthopena, peripheral edema. Respiratory: Reports: orthopnea, short of breath. Gastrointestinal: Reports: no symptoms. Genitourinary: Reports: no symptoms. Musculoskeletal: Reports: no symptoms. Skin: Reports: no symptoms. Neurological/Psychological: Reports: no symptoms. Hematologic/Endocrine: Reports: no symptoms. Immunologic/Allergic: Reports: no symptoms. Objective Last 24 Hrs of Vital Signs/I&O Vital Signs Date Time Temp Pulse Resp B/P B/P Pulse O2 O2 Flow FiO2 Mean Ox Delivery Rate 10/17 1355 97.4 90 20 128/64 10/17 1123 Nasal 2.0L Cannula Physical Exam General Appearance: Alert, Oriented X3, Cooperative Skin: No Rashes, No Breakdown Cardiovascular: Normal S1, Normal S2, Irregular Lungs: basilar crackles Abdomen: Normal Bowel Sounds, Soft, No Tenderness Extremities: No Clubbing, No Cyanosis, +1-2 pitting edema Current Medications: Current Medications Sig/Cole Start time Last Medication Dose Route Stop Time Status Admin Acetaminophen 650 MG Q6P PRN 10/04 1800 DCD 03/04 PO 2143 Atorvastatin Calcium 40 MG 1700 10/04 1745 DCD 10/16 PO 1656 Calcitriol 0.25 MCG DAILY 10/11 1000 DCD 10/17 PO 1024 Diltiazem HCl 240 MG DAILY 10/11 1000 DCD / PO 1023 Febuxostat 40 MG DAILY 10/05 1000 DCD / PO 1022 Ferrous Sulfate 325 MG TID 10/04 2200 DCD 10/17 PO 1024 Furosemide 80 MG 1800,0600,1200 10/13 1800 DCD 10/17 IV 1203 Insulin Aspart 0 TIDAC 10/05 0800 DCD 10/17 SC 1308 Insulin Aspart 0 AT BEDTIME 10/04 2200 DCD 03 SC 2229 Metolazone 10 MG 0530 10/16 1200 DCD 03 PO 10/18 0531 0608 Metoprolol Tartrate 37.5 MG BID 10/05 2200 DCD 10/17 PO 1024 Patient Medication 1 ED ONE ONE 10/17 1515 DC Teaching ED 10/17 1516 Potassium Chloride 20 MEQ BID 10/14 1000 DCD 10/17 PO 1024 Sevelamer Carbonate 1,600 MG WM 10/05 0800 DCD 10/17 PO 1308 Sodium Chloride 2 SPRAY Q4-6 PRN PRN 10/16 1930 DCD VENU Warfarin Sodium 5 MG COUMADIN 1700 10/16 1700 DCD 10/16 PO 1656 Assessment/Plan Assessment: Patient is a 72-year-old female with past medical history significant for paroxysmal atrial fibrillation status post cardioversion 2 on coumadin, diabetes not on any medications currently, diabetic and hypertensive 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 Problem List; HFpEF(ejection fraction of 60% on recent echocardiogram). Acute on chronic CKD likely from diuretic use Atrial Fibrillation on Coumadin - Continue lasix to 60 mg three times a day and metolazone once daily before the morning dose of lasix. Patient will be discharged on torsemide 100mg daily and metolazone 5mg daily. - Weight 224 to 226 today. - Cr currently remains the same. - Supplemental O2 to keep O2 sats above 92%. -Today INR 2.37 and will give 1 dose of Coumadin 5 mg - NovoLog sliding scale. - Continue rest of home medications. DVT Prophylaxis: on coumadin Code: Full code Problem List: 1. Heart failure with preserved ejection fraction Pain Ratin Pain Location: None Pain Goal: Remain pain free Pain Plan: None Tomorrow's Labs & Rationales: None Consulting Request: Consulting Specialty: Nephrology Consulting Physician: Dr. Stevens Reason for Consult: CKD with intractable edema Geovanni BARBOUR,Richard 10/17/17 1123: Attending MD Review Statement Attending Statement Attending MD Statement: examined this patient, discuss w/resident/PA/CAN REFORMING MACHINE OPERATOR, agreed w/resident/PA/CAN REFORMING MACHINE OPERATOR, reviewed EMR data (avail), discussed with nursing, discussed with case mgmt, amended to note Attending Assessment/Plan: She is seen and examined. Resting comfortably not in any acute distress. No issues overnight. No new complaints this morning. She did have very slight weight gain today. She denies shortness of breath at rest. On examination she has slightly improved entry in the right lung base. Peripheral edema doing improved is still present significantly. Case discussed with nephrology service. She is medically stable to be discharged home today. She will be discharged home on torsemide 100 mg daily and metolazone 5 mg daily. She will follow-up in the CHF clinic. She is to have her labs monitored weekly and follow-up with the nephrology service as an outpatient. Patient understands that current conservative medical therapy is in attempts of daily hemodialysis which may end up being inevitable. She may be discharged later today if she gets a bed at a long-term facility.
[2017-10-17 08:19] LABS: PT 26.1 SEC (9.4-12.5)
[2017-10-17] MEDS ORDERED: TORSEMIDE100 M1 PO (11:08)
[2017-10-17] MEDS ORDERED: METOLAZONE5 M1 PO ×2 (11:08→11:54)
--- NOTE | 2017-10-17 11:13 | PN- Nephrology ---
See Addendum Assessment/Plan Nephrology Assessment: Stage IV/V CKD - SCr oscillating around baseline. Subnephrotic range proteinuria. Edema - Not nephrosis. Slowly improving. Symptomatology improving as well. Still has some fluid but would not be unreasonable to discharge with plans to cont to try and acheive weight loss. If she is unable to maintain some degree of euvolemia as an outpatient on high dose diuretics, we may ultimately need to start her on dialysis. Met acidosis - Had been on sodium bicarb for met acidosis but now has a met alkalosis requiring acetazolamide. Bicarb has been stopped. Anemia - Iron deficient. OK for now to give oral iron. Vit B12 and Folate OK. Suggestion: -OK to d/c on 100mg PO torsemide and 5mg metolazone daily - need to try and target weight around 220lbs or better as an outpatient - may need to uptitrate metolazone -If unable to acheive euvolemia, may need to start dialysis (otherwise has no uremic symptoms to warrant HD initiation) -Start ferrous sulfate 325mg TID -Pt should have labs at the ECF within a week of discharge including BMP and CBC Please call [phone] with ?'s Subjective Subjective: SCr 4.1 80mg IV lasix q8 + 10mg PO metolazone daily Weight 224->226 Says she was able to walk around without supplemental oxygen Chest x-ray with mild pulm vascular congestion Objective Vital Signs and I&Os Vital Signs Date Time Temp Pulse Resp B/P B/P Pulse O2 O2 Flow FiO2 Mean Ox Delivery Rate 10/17 1024 90 128/64 /06 0826 Nasal 2.0L Cannula 10/17 0800 95 Nasal 2.0L Cannula 10/17 0701 97.4 106 20 128/64 95 Nasal Cannula / 2310 Nasal 2.0L Cannula 10/16 2156 97.7 112 20 144/70 92 Room Air 10/16 2153 98 132/84 / 1600 99 Nasal 2.0L Cannula 10/16 1406 97.6 101 20 118/66 99 Nasal 2.0L Cannula Intake & Output 10/17 1600 /06 0400 / 1600 / 0400 10/15 1600 / 0400 Intake Total 250 320 568 100 620 100 Output Total 1258 099 5985 1850 Balance -1000 -630 -507 100 -1230 100 Intake, IV 18 Intake, Oral 250 320 550 100 620 100 Number 1 0 0 Bowel Movements Output, Urine 9926 082 9915 1850 Patient 226 lb 224 lb 229 lb Weight Weight Chair scale Chair scale Chair scale Measurement Method Physical Exam: Gen - OK appearing HEENT - JVP up CV - RRR, no m/r/g Chest - L basilar crackles Abd - soft, NTND Ext - 1+ edema, chronic venous stasis Neuro - AOX3, grossly nonfocal Current Medications: Current Medications Sig/Cole Start time Last Medication Dose Route Stop Time Status Admin Acetaminophen 650 MG Q6P PRN 10/04 1800 AC 10/15 PO 2143 Atorvastatin Calcium 40 MG 1700 10/04 1745 AC 10/16 PO 1656 Calcitriol 0.25 MCG DAILY 10/11 1000 AC 10/17 PO 1024 Diltiazem HCl 240 MG DAILY 10/11 1000 AC 10/17 PO 1023 Febuxostat 40 MG DAILY 10/05 1000 AC 10/17 PO 1022 Ferrous Sulfate 325 MG TID 10/04 2200 AC 10/17 PO 1024 Furosemide 80 MG 1800,0600,1200 10/13 1800 AC 10/17 IV 0653 Insulin Aspart 0 TIDAC 10/05 0800 10/17 SC 0810 Insulin Aspart 0 AT BEDTIME 10/04 2200 10/16 MS 2229 Metolazone 10 MG 0530 10/16 1200 AC 10/17 PO /07 0531 0608 Metoprolol Tartrate 37.5 MG BID 10/05 2200 AC 10/17 PO 1024 Potassium Chloride 20 MEQ BID 10/14 1000 AC 10/17 PO 1024 Sevelamer Carbonate 1,600 MG WM 10/05 0800 AC 10/17 PO 0811 Sodium Chloride 2 SPRAY Q4-6 PRN PRN 10/16 1930 AC VENU Warfarin Sodium 5 MG COUMADIN 1700 10/16 1700 AC 10/16 PO 1656 Results Pertinent Lab Results: Laboratory Tests 10/17 10/16 0633 0646 Chemistry Sodium (137 - 145 mmol/L) 139 139 Potassium (3.5 - 5.1 mmol/L) 3.7 3.7 Chloride (98 - 107 mmol/L) 90 L 91 L Carbon Dioxide (22 - 30 mmol/L) 35 H 36 H Anion Gap (5 - 16) 15 12 BUN (7 - 17 mg/dL) 108 *H 105 *H Creatinine (0.5 - 1.0 mg/dL) 4.1 H 4.0 H Estimated GFR (>60 ml/min) 11 L 11 L BUN/Creatinine Ratio (7 - 25 %) 26.3 H 26.3 H Iron (37 - 170 ug/dL) 34 L TIBC (265 - 497 ug/dL) 322 Ferritin (11.1 - 264 ng/mL) 117.0 Vitamin B12 (239 - 931 pg/mL) 468 Folate (2.76 - 20.0 ng/mL) 9.8 Coagulation PT (9.4 - 12.5 SEC) 26.1 H 25.6 H INR (0.90 - 1.19) 2.37 H 2.33 H Hematology CBC w Diff NO MAN DIFF REQ WBC (4.8 - 10.8 /CUMM) 7.8 RBC (4.20 - 5.40 /CUMM) 3.34 L Hgb (12.0 - 16.0 G/DL) 9.3 L Hct (37 - 47 %) 28.0 L MCV (81.0 - 99.0 FL) 83.9 MCH (27.0 - 31.0 PG) 27.7 MCHC (33.0 - 37.0 G/DL) 33.1 RDW (11.5 - 14.5 %) 15.8 H Plt Count (130 - 400 /CUMM) 162 MPV (7.4 - 10.4 FL) 9.5 Gran % (42.2 - 75.2 %) 61.6 Lymphocytes % (20.5 - 51.1 %) 21.1 Monocytes % (1.7 - 9.3 %) 9.7 H Eosinophils % (0 - 5 %) 6.7 H Basophils % (0.0 - 2.0 %) 0.9 Absolute Granulocytes (1.4 - 6.5 /CUMM) 4.8 Absolute Lymphocytes (1.2 - 3.4 /CUMM) 1.7 Absolute Monocytes (0.10 - 0.60 /CUMM) 0.8 H Absolute Eosinophils (0.0 - 0.7 /CUMM) 0.5 Absolute Basophils (0.0 - 0.2 /CUMM) 0.1 Retic Count (0.5 - 2.0 %) 1.48 03/04 0650 Chemistry Sodium (137 - 145 mmol/L) 140 Potassium (3.5 - 5.1 mmol/L) 3.5 Chloride (98 - 107 mmol/L) 92 L Carbon Dioxide (22 - 30 mmol/L) 37 H Anion Gap (5 - 16) 12 BUN (7 - 17 mg/dL) 101 *H Creatinine (0.5 - 1.0 mg/dL) 4.0 H Estimated GFR (>60 ml/min) 11 L BUN/Creatinine Ratio (7 - 25 %) 25.3 H Coagulation PT (9.4 - 12.5 SEC) 23.8 H INR (0.90 - 1.19) 2.17 H Hematology CBC w Diff NO MAN DIFF REQ WBC (4.8 - 10.8 /CUMM) 8.6 RBC (4.20 - 5.40 /CUMM) 3.33 L Hgb (12.0 - 16.0 G/DL) 9.2 L Hct (37 - 47 %) 28.1 L MCV (81.0 - 99.0 FL) 84.3 MCH (27.0 - 31.0 PG) 27.8 MCHC (33.0 - 37.0 G/DL) 32.9 L RDW (11.5 - 14.5 %) 16.2 H Plt Count (130 - 400 /CUMM) 166 MPV (7.4 - 10.4 FL) 9.6 Gran % (42.2 - 75.2 %) 66.8 Lymphocytes % (20.5 - 51.1 %) 19.2 L Monocytes % (1.7 - 9.3 %) 7.8 Eosinophils % (0 - 5 %) 5.7 H Basophils % (0.0 - 2.0 %) 0.5 Absolute Granulocytes (1.4 - 6.5 /CUMM) 5.8 Absolute Lymphocytes (1.2 - 3.4 /CUMM) 1.7 Absolute Monocytes (0.10 - 0.60 /CUMM) 0.7 H Absolute Eosinophils (0.0 - 0.7 /CUMM) 0.5 Absolute Basophils (0.0 - 0.2 /CUMM) 0 Imaging/Other Studies: EXAM TYPE: RAD - XRY-CHEST XRAY, TWO VIEWS EXAMINATION: XR CHEST CLINICAL INFORMATION: Shortness of breath. Need to monitor for pleural effusion. COMPARISON: Several prior chest x-rays, most recent of which is dated 10/10/2017. TECHNIQUE: 2 views of the chest were obtained on 3 images. FINDINGS: The cardiomediastinal silhouette is enlarged. Calcification of the aortic arch is seen. Lungs continue to demonstrate patchy opacities in the mid and lower lungs, right more than left, mildly improved when compared to the prior exam, likely a combination of pleural effusion and associated airspace disease or atelectasis. There is mild central vascular congestion. No overt pulmonary edema is seen. No pneumothorax is noted. Arterial vascular calcifications are seen in the axillae bilaterally. Bony structures are unremarkable. IMPRESSION: 1. Mildly improved bilateral opacities in the lung bases, likely due to persistent small pleural effusions and associated airspace disease or atelectasis. 2. Mild central vascular congestion.
[2017-10-17 13:55] VITALS: BP 128/64
== END 2017-10-17 17:45 | DRG 291 ==
LOC: ERH 11:11 → ERHI 15:12 → 1NO 15:12 → ENRESERV 20:05 → ENTRNSPT 20:52 → EDTRNSPTSTS 21:09 → 1NO 21:15 → CMPTRNSPT 21:29 → 1NO 10-05 12:35 → ENPENDDIS 10-17 15:54 → 1NO 10-17 17:45
PROVIDERS: Internal Medicine; Internal Medicine Adolescent Medicine; Physician Assistant Medical; Student in an Organized Health Care Education/Training Program
DX: I13.0 Hypertensive heart and chronic kidney disease with heart failure and stage 1 through stage 4 chronic kidney disease, or unspecified chronic kidney disease (principal); I50.33 Acute on chronic diastolic (congestive) heart failure; J96.11 Chronic respiratory failure with hypoxia; E87.2 Acidosis; E87.3 Alkalosis; E11.22 Type 2 diabetes mellitus with diabetic chronic kidney disease; N18.5 Chronic kidney disease, stage 5; N25.81 Secondary hyperparathyroidism of renal origin; L97.529 Non-pressure chronic ulcer of other part of left foot with unspecified severity; I48.2 Chronic atrial fibrillation; Z99.81 Dependence on supplemental oxygen; Z91.14 Patient's other noncompliance with medication regimen; E66.9 Obesity, unspecified; Z68.36 Body mass index [BMI] 36.0-36.9, adult; Z79.01 Long term (current) use of anticoagulants; N18.9 Chronic kidney disease, unspecified; D64.9 Anemia, unspecified
CPT/HCPCS: 1NP; 36415; 36592; 71045; 71046; 82436; 82570; 87804; 87804-59; 93005; 93010; 96374; 97110-GO; 97116-GO; 97161-GP; 97166-GO; 97530-GO; J1120; J1940

== ENCOUNTER 2017-11-15 10:38 | Emergency (ER) | payer OTHER, MEDICARE ==
[~2017-11-15 10:38] MED LIST changes: +METOLAZONE5 M1 PO; +TORSEMIDE100 M1 PO
--- NOTE | 2017-11-15 10:59 | ED GENERAL ADULT ---
History of Present Illness General Chief Complaint: General Adult Stated Complaint: EVAL Source: patient, old records Exam Limitations: no limitations Vital Signs & Intake/Output Vital Signs & Intake/Output Vital Signs Date Time Temp Pulse Resp B/P B/P Pulse O2 O2 Flow FiO2 Mean Ox Delivery Rate 11/15 1117 96.8 112 20 156/84 04 1044 96.8 112 20 156/84 99 Room Air Allergies Coded Allergies: sitagliptin (From [facility]) (Severe, THROAT CLOSURE 02/05/17) Reconcile Medications Calcitriol 0.25 MCG CAPSULE 1 CAP PO DAILY SUPPLEMENT (Reported) Diltiazem HCl (Cardizem Cd) 240 MG CAP.ER.24H 240 MG PO DAILY HEART HEALTH . Febuxostat (Uloric) 40 MG TABLET 1 TAB PO DAILY GOUT (Reported) Ferrous Sulfate 325 MG (65 MG IRON) TABLET 1 TAB PO TID Iron storage . Insulin Aspart (Niacinamide) (Fiasp 100 Unit/Ml Flextouch) 100 UNIT/ML (3 ML) INSULN.PEN 0 SC TIDAC blood sugar .Please administer as follow: Metolazone 5 MG TABLET 1 TAB PO DAILY HEART FAILURE Metoprolol Tartrate 25 MG TABLET 37.5 MG PO BID HEART HEALTH . Rosuvastatin Calcium (Crestor) 10 MG TABLET 1 TAB PO DAILY HYPERLIPIDEMIA Sevelamer Carbonate (Renvela) 800 MG TABLET 2 TAB PO WM CKD Torsemide 100 MG TABLET 1 TAB PO DAILY HEART FAILURE Warfarin Sodium (Coumadin) 5 MG TABLET 1 TAB PO DAILY BLOOD THINNER .. Triage Note: PER PT VNA WENT TO HOUSE AND FOUND HR TO BE >100,SO INSISTED PT COME TO ED, PT WITHOUT CO AND IS VERY UPSET THAT SHE WAS SENT TO ED, PT WITHOUT ANY CO AND HAS A DR APPT AT 1230 TODAY Triage Nurses Notes Reviewed? yes HPI: Patient presents for evaluation of an elevated heart rate as determined by her visiting nurse this morning. The patient herself offers no complaint at this time, denying chest pain shortness of breath or palpitations. Past History Travel History Traveled to [place] past 21 day No Medical History Any Pertinent Medical History? see below for history Neurological: NONE EENT: NONE Cardiovascular: AFIB (refuses/ not started on antico), aflutter, hypertension Respiratory: NONE Gastrointestinal: NONE Hepatic: NONE Renal: chronic kidney disease, CKD biopsy-proven diabetic/hypertensive nephropathy R.ARM AVF Musculoskeletal: gout Psychiatric: NONE Endocrine: diabetes, obesity, she reports that her diabetes has been referred for roughly 10 years. She denies any retinopathy. 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 exteriorization of an aVF Psychosocial History Who do you live with Patient/Self What is your primary language Beninese Tobacco Use: Never used Family History Family History, If Any: FATHER Heart failure MOTHER Valvular heart disease Hx Contributory? No Review of Systems Review of Systems Constitutional: Reports: no symptoms. EENTM: Reports: no symptoms. Respiratory: Reports: no symptoms. Cardiovascular: Reports: palpitations. GI: Reports: no symptoms. Genitourinary: Reports: no symptoms. Musculoskeletal: Reports: no symptoms. Skin: Reports: no symptoms. Neurological/Psychological: Reports: no symptoms. Hematologic/Endocrine: Reports: no symptoms. Immunologic/Allergic: Reports: no symptoms. All Other Systems: Reviewed and Negative Physical Exam Physical Exam General Appearance: SEE BELOW Comments: Gen.: Well-nourished, well-developed, no acute respiratory distress. Head: Normocephalic, atraumatic. Eyes: Normal inspection bilaterally Ears: Normal inspection bilaterally Nose: Normal inspection Throat/mouth : Moist mucosa Neck: Supple, full range of motion, no goiter Heart: IRRegular rate and rhythm Lungs: Clear to auscultation bilaterally with normal air entry Chest: Nontender Back: Normal range of motion Abdomen: Soft, nontender, nondistended, normal bowel sounds Extremities: Normal range of motion grossly, equal radial pulses, no cyanosis clubbing or edema Neurologic: Cranial nerves grossly intact, speech is clear Skin: warm and dry Psychiatric: Calm, cooperative, no apparent delusions or hallucinations Core Measures ACS in differential dx? No CVA/TIA Diagnosis: No Sepsis Present: No Sepsis Focused Exam Completed? No Progress Differential Diagnoses I considered the following diagnoses in my evaluation of the patient: Plan of Care: Orders Procedure Date/time Status EKG 11/15 1044 Active Current Medications Sig/Cole Start time Last Medication Dose Stop Time Status Admin Diltiazem HCl 240 MG DAILY 11/15 1059 UNVr 11/15 (Cardizem CD) 1117 Metoprolol Tartrate 37.5 MG BID 11/15 1059 UNVr 11/15 (Lopressor) 1117 Initial ED EKG: AFIB, no ST T wave changes Prior EKG: unchanged Comments: Patient has decided against an emergency department evaluation until she has a chance to speak with her daughter who is en route to the emergency department. Patient states she has not taken her morning medications today. I will order these and will monitor heart rate. Departure Departure Disposition: HOME OR SELF CARE Condition: Stable Clinical Impression Primary Impression: Atrial fibrillation Referrals: Reanta Lopez MD Additional Instructions: Report to your wound care center appointment immediately. Return to the emergency department if any concerns or worsening. Please notify your primary care doctor and/or hide inspector and sorter of this emergency department visit and treatment plan, you should ask if you need to restart Cardizem to help with your heart rate control. Departure Forms: Customer Survey General Discharge Information Critical Care Note Critical Care Note Critical Care Time: non-applicable
[2017-11-15 11:17] VITALS: BP 156/84
== END 2017-11-15 12:02 ==
LOC: ERH 10:38
DX: I48.91 Unspecified atrial fibrillation (principal); Z79.01 Long term (current) use of anticoagulants
CPT/HCPCS: 93005; 93010

== ENCOUNTER 2018-02-07 15:55 | Inpatient (IN) | payer OTHER, MEDICARE ==
[~2018-02-07] VITALS: Ht 175.3 cm; Wt 94.5 kg
--- NOTE | 2018-02-07 16:32 | ED GENERAL ADULT ---
See Addendum History of Present Illness General Chief Complaint: General Adult Stated Complaint: BIBA AFIB Source: patient Exam Limitations: no limitations Vital Signs & Intake/Output Vital Signs & Intake/Output Vital Signs Date Time Temp Pulse Resp B/P B/P Pulse O2 O2 Flow FiO2 Mean Ox Delivery Rate 02/07 1846 213/93 02/07 1831 64 18 213/93 96 Room Air 02/07 1658 233/106 02/07 1606 98.9 76 20 233/100 96 Room Air Allergies Coded Allergies: sitagliptin (From [facility]) (Severe, THROAT CLOSURE 02/05/17) Reconcile Medications Calcitriol 0.25 MCG CAPSULE 1 CAP PO DAILY SUPPLEMENT (Reported) Diltiazem HCl (Cardizem Cd) 240 MG CAP.ER.24H 240 MG PO DAILY HEART HEALTH . Febuxostat (Uloric) 40 MG TABLET 1 TAB PO DAILY GOUT (Reported) Ferrous Sulfate 325 MG (65 MG IRON) TABLET 1 TAB PO TID Iron storage . Insulin Aspart (Niacinamide) (Fiasp 100 Unit/Ml Flextouch) 100 UNIT/ML (3 ML) INSULN.PEN 0 SC TIDAC blood sugar .Please administer as follow: Metolazone 5 MG TABLET 1 TAB PO DAILY HEART FAILURE Metoprolol Tartrate 25 MG TABLET 37.5 MG PO BID HEART HEALTH . Rosuvastatin Calcium (Crestor) 10 MG TABLET 1 TAB PO DAILY HYPERLIPIDEMIA Sevelamer Carbonate (Renvela) 800 MG TABLET 2 TAB PO WM CKD Torsemide 100 MG TABLET 1 TAB PO DAILY HEART FAILURE Warfarin Sodium (Coumadin) 5 MG TABLET 1 TAB PO DAILY BLOOD THINNER .. Triage Note: PT AZAM FROM PCP FOR AMS & HTN PER EMS. EMS STATES PCP CALED THEM & STATED THAT SHE WAS DISORIENTED & ALTERED EYE GAZE. ON EMS ARRIVAL. PT WAS AOX4, BUT SBP WAS NOTED TO BE IN THE 200'S. PT STATES SHE DID NOT TAKE HER BP MEDS THIS AM BECAUSE SHE WANTED TO WAIT UNTIL AFTER THE DR. BP IS 233/100. PT AOX4, MD MISTRY AWARE Triage Nurses Notes Reviewed? yes HPI: Patient is a 73-year-old female with past medical history of atrial fibrillation , hypertension, chronic kidney disease, and diabetes, who is referred in from her primary physician today for severe hypertension and fatigue. Her blood pressure on arrival was 230 systolic. From the time of my initial encounter, the patient was very annoyed that she was here in the emergency department and in fact was requesting discharge. Given her markedly abnormal vital signs, I convinced her to at least undergo treatment. She denies any headache, chest pain, or dyspnea, but does report fatigue. When she was at her PCPs office earlier today, it was reported that she became acutely altered, not oriented to her surroundings. This was relatively brief and self-limited. She was here no problem this past Monday after a fall with some mild dizziness and underwent laboratory studies and CT of her head with negative results and was discharged home. She denies any complaints at this time. Past History Travel History Traveled to [place] past 21 day No Medical History Any Pertinent Medical History? see below for history Neurological: NONE EENT: NONE Cardiovascular: AFIB (refuses/ not started on antico), aflutter, hypertension Respiratory: NONE Gastrointestinal: NONE Hepatic: NONE Renal: chronic kidney disease, CKD biopsy-proven diabetic/hypertensive nephropathy R.ARM AVF Musculoskeletal: gout Psychiatric: NONE Endocrine: diabetes, obesity, she reports that her diabetes has been referred for roughly 10 years. She denies any retinopathy. 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 Yes Review of Systems Review of Systems Constitutional: Reports: weakness. EENTM: Reports: no symptoms. Respiratory: Reports: no symptoms. Cardiovascular: Reports: no symptoms. GI: Reports: no symptoms. Genitourinary: Reports: no symptoms. Musculoskeletal: Reports: no symptoms. Skin: Reports: no symptoms. Neurological/Psychological: Reports: cognitive dysfunction, confusion. Hematologic/Endocrine: Reports: no symptoms. Immunologic/Allergic: Reports: no symptoms. All Other Systems: Reviewed and Negative Physical Exam Physical Exam General Appearance: well developed/nourished, no apparent distress, alert, awake Cardiovascular: markedly hypertensive Comments: HEENT: Inspection of the head reveals a normocephalic cranium with no signs of trauma. Ophtho: Extraocular muscles are intact and pupils are equal and reactive to light bilaterally with no afferent pupillary defect. The sclera are noninjected , and there is no obvious discharge. Neck: The trachea is midline, there is no obvious asymmetry or mass over the thyroid, and there is no midline cervical spine tenderness Respiratory: The lungs are clear and equal to auscultation bilaterally without wheezes, rales, or rhonchi. The patient exhibits no signs of labored breathing. Cardiac: Markedly hypertensive. Regular rhythm and non-tachycardic without appreciable murmurs on auscultation. No obvious JVD. GI: Examination of the abdomen reveals no significant focal tenderness in any of the four quadrants. There is negative Green's sign, negative McBurney's point tenderness, negative Lepanto sign, negative Stearns-Jernigan sign, and no signs of peritonitis whatsoever on percussion or deep palpation. The skin is intact with no sign of trauma or infection. : Deferred Neuro: The patient is oriented to person, place, time, and situation, with no obvious focal motor deficits. There were no sensory deficits, and the patient exhibit purposeful movement of all 4 extremities. Cranial nerves II through XII are intact, and gait is normal. Behavioral: Calm and cooperative Dermatologic: Dermatologic examination reveals no diffuse rashes or exanthems, no petechiae, no ecchymoses, and no other signs of erythema or infection. Core Measures ACS in differential dx? Yes CVA/TIA Diagnosis: Yes Sepsis Present: No Sepsis Focused Exam Completed? No Progress Differential Diagnoses I considered the following diagnoses in my evaluation of the patient: Posterior reversible encephalopathy syndrome, hypertensive emergency, acute on chronic renal failure, hemorrhagic stroke, acute coronary syndrome, electrolyte abnormality, among multiple other possibilities. Plan of Care: Orders Procedure Date/time Status URINALYSIS 02/07 1632 Complete TROPONIN LEVEL 02/07 1632 Complete COMPREHENSIVE METABOLIC PANEL 02/07 1632 Complete CBC WITHOUT DIFFERENTIAL 02/07 1632 Complete EKG 02/07 1632 Active Laboratory Tests 02/07/ 1655: Urinalysis LIGHT H, Urine Color YEL, Urine Clarity HAZY H, Urine pH 6.0, Ur Specific [place] 1.020, Urine Protein 100 H, Urine Ketones NEG, Urine Nitrite NEG, Urine Bilirubin NEG, Urine Urobilinogen 0.2, Ur Leukocyte Esterase SMALL H , Ur Microscopic SEDIMENT EXAMINED, Urine RBC 5-10 H, Urine WBC 5-10 H, Ur Epithelial Cells MANY H, Urine Bacteria MOD H, Hyaline Casts RARE H, Granular Casts RARE H, Urine Mucus RARE, Urine Hemoglobin MOD H, Urine Glucose 100 H 02/07/18 1648: Anion Gap 17 H, Estimated GFR 11 L, BUN/Creatinine Ratio 25.5 H, Glucose 168 H, Calcium 9.8, Total Bilirubin 0.7, AST 39 H, ALT 32, Alkaline Phosphatase 507 H, Troponin I 0.07, Total Protein 7.8, Albumin 4.4, Globulin 3.4, Albumin/ Globulin Ratio 1.3, CBC w Diff NO MAN DIFF REQ, RBC 4.02 L, MCV 83.8, MCH 28.3, MCHC 33.8, RDW 15.3 H, MPV 9.0, Gran % 71.9, Lymphocytes % 16.1 L, Monocytes % 8.6, Eosinophils % 2.9, Basophils % 0.5, Absolute Granulocytes 8.0 H, Absolute Lymphocytes 1.8, Absolute Monocytes 1.0 H, Absolute Eosinophils 0.3, Absolute Basophils 0.1 Radiology Impression: CT HEAD neg for acute abnormality CXR Impression: no acute abnormality Initial ED EKG: normal axis, normal intervals, normal p-waves, normal QRS complex, normal sinus rhythm, NSR Comments: Patient presents with severe hypertension greater than 230 systolic. She has chronic kidney disease, diabetes, and I was concerned for hypertensive emergency versus TIA versus posterior reversible encephalopathy syndrome given her acute altered mental status at her PCPs office today. She was reluctant to undergo workup at first but she finally agreed. Laboratory studies resulted at the patient's baseline; troponin was 0.07, which is likely elevated above the 0.01 cut off because of the patient's creatinine of 4. However, hypertensive emergency causing cardiac damage cannot be ruled out. Given the uncertainty regarding the patient's diagnosis and the possibility of neurologic insult and the ongoing hypertension refractory to my dosages of metoprolol IV, the patient will require hospitalization for further treatment. Departure Departure Time of Disposition: 1850 Disposition: STILL A PATIENT Condition: Stable Clinical Impression Primary Impression: Hypertensive emergency Referrals: Andrzej BARBOUR,Juan Mak (PCP/Family) Departure Forms: Customer Survey General Discharge Information Admission Note Spoke With: Karley Miller MD Documentation of Exam: Documentation of any treatments & extenuating circumstances including Concerns Regarding Discharge (functional status, medication knowledge or non-compliance, living conditions, etc.) that warrant an admission rather than observation: I feel that this patient is at risk for neurologic insult as her episode today may have her presented a TIA versus posterior reversible encephalopathy syndrome. She requires hospitalization for neurologic monitoring, neuro checks, neurology consultation, laboratory studies, further intravenous control of her severe hypertension, and monitoring of her troponin trend to ensure no cardiac damage. Discharge home would be unsafe at this time. Critical Care Note Critical Care Note Critical Care Time: non-applicable
[2018-02-07 17:13] LABS: ABSOLUTE BASOPHIL COUNT 0.1 /CUMM (0.0-0.2); ABSOLUTE EOSINOPHIL COUNT 0.3 /CUMM (0.0-0.7); ABSOLUTE LYMPH COUNT 1.8 /CUMM (1.2-3.4); BASOPHIL % 0.5 % (0.0-2.0); EOSINOPHIL % 2.9 % (0-5); GRANULOCYTE % 71.9 % (42.2-75.2); HEMATOCRIT 33.7 % (37-47); MEAN CORPUSCULAR HGB 28.3 PG (27.0-31.0); MEAN CORPUSCULAR HGB CONC 33.8 G/DL (33.0-37.0); MEAN CORPUSCULAR VOLUME 83.8 FL (81.0-99.0); PLATELET COUNT 223 /CUMM (130-400); RBC DISTRIBUTION WIDTH 15.3 % (11.5-14.5); RED BLOOD CELL CT 4.02 /CUMM (4.20-5.40); WHITE BLOOD CELL COUNT 11.2 /CUMM (4.8-10.8)
--- NOTE | 2018-02-07 17:42 | RADIOLOGY REPORT ---
XR CHEST CLINICAL INFORMATION: Confusion. COMPARISON: Chest x-ray 10/16/2017. TECHNIQUE: 2 views of the chest were obtained. FINDINGS: Symmetric lung inflation. There is no focal consolidation, pleural effusion, or pneumothorax. Cardiac silhouette is enlarged and unchanged. There are no acute osseous findings. IMPRESSION: No acute pulmonary process. Stable enlargement of the cardiac silhouette.
--- NOTE | 2018-02-07 18:16 | CT SCAN REPORT ---
EXAMINATION: CT HEAD WITHOUT CONTRAST CLINICAL INFORMATION: Confusion and elevated systolic blood pressure. COMPARISON: Head CT 02/03/2018. TECHNIQUE: Contiguous axial imaging was performed from the skull base to vertex without intravenous administration of contrast. FINDINGS: Atherosclerotic calcification throughout the intracranial arterial vasculature. There is global cerebral volume loss and there is moderate chronic microangiopathy. There is a chronic infarct involving the left precentral gyrus. Chronic lacunar infarcts within the deep guerrero nuclei bilaterally. There is no intracranial hemorrhage, hydrocephalus, extra-axial surface collection, midline shift, or other herniation pattern. Guerrero to white matter differentiation is diffusely maintained without evidence of an evolved acute territorial infarct. The basilar cisterns are preserved. No significant soft tissue abnormality. No acute osseous abnormality. The paranasal sinuses and the mastoid air cells are well-aerated. IMPRESSION: - No acute intracranial abnormality. - There is global cerebral volume loss and there is moderate chronic microangiopathy. There is a chronic infarct involving the left precentral gyrus. Chronic lacunar infarcts within the deep guerrero nuclei bilaterally.
[2018-02-07] MEDS ORDERED: METOLAZONE5 M1 PO (19:34)
[2018-02-07] MEDS ORDERED: TORSEMIDE20 M1 PO (19:35)
[2018-02-07] MEDS ORDERED: METOPROLOL TART25 M1 PO (19:37)
[2018-02-07] MEDS ORDERED: POTASSIUM CHLO20 ME2 PO (19:39)
[2018-02-07] MEDS ORDERED: ATORVASTATIN CA10 M1 PO (19:39)
[2018-02-07] MEDS ORDERED: CARDIZEM CD300 M1 PO (19:39)
[2018-02-07] MEDS ORDERED: COUMADIN7.5 M1 PO (19:40)
[2018-02-07] MEDS ORDERED: COUMADIN5 M2 PO (19:41)
--- NOTE | 2018-02-07 21:26 | History & Physical ---
[place] 02/07/182110: General Information and HPI MD Statement: I have seen and personally examined GILL CUETO and documented this H&P. The patient is a 73 year old F who presented with a patient stated chief complaint of elevated blood pressure, altered mental status and fatigue []. Source of Information: patient, old records, EMS Exam Limitations: no limitations History of Present Illness: 73 YO F, obese, former smoker with PMH of A.fib on Coumadin, HFpEF, chronic hypoxemic respiratory failure on home oxygen, DM, stage IV CKD, and moderate to severe pulmonary hypertension, gout, chronic anemia and secondary hyperaparthroidism was referred from primary care physician's office with chief complaint of elevated blood pressure, altered mental status and fatigue. According to the patient she was in her usual state of health since this morning and she went to see her primary care physician today. In the office her systolic blood pressure found to be in 230s and she was found confused and fatigued in the office. Her confusion was for a brief time and resolved by its own Patient was referred to ED. according to patient she went to primary care physician to figure out about her metoprolol dose as last week she went to nephrology clinic and the nursing staff changed her metoprolol dose to once a day although she was supposed to take twice a day metoprolol dose. According to patient since she is taking metoprolol she is not feeling well and sometimes she noticed chills and blurry vision that resolved by its own and she presented to ED last week. Last Monday after a fall with mild dizziness and lab tests were done and CT scan head was done that were negative and she was discharged home. Initially in ED patient was reluctant to get any blood work and hospitalization for further treatment, requesting discharge from ED. Later on she was convinced by ED doctor to stay and get treatment for elevated blood pressure. Patient denied chest pain, palpitation, nausea, vomiting, shortness of breath, cough, sputum, abdominal pain, diarrhea, constipation, headache, numbness, tingling, weakness, take bite, rash and dysuria. Patient reported that she is using her medications regularly and she went to [facility] for renal dialysis but as her veins were not appropriate for catheter placement so she couldn't get any dialysis and the place the patient on diuretics. With diuretics she lost 71 pounds according to patient. On last admission her blood pressure was under control even without medications. Her last echocardiogram was done in August 2017 that showed ejection fraction 60% with moderate left ventricular hypertrophy, moderate left atrial enlargement and moderate to severe pulmonary hypertension. Her last admission was in [facility] in September 2017 when she was admitted for acute diastolic heart failure and A. fib with rapid ventricular response. Patient is following Dr. Ham for her kidney problem and she is following wound clinic for her left foot wound. ED course: Vitals: Temperature 98.9, pulse 76, respiratory rate 20, blood pressure 233/106, oxygen saturation 96% on room air. Labs: WBC count 11.2, hemoglobin 11.4, hematocrit 33.7, platelet count 223, sodium 139, potassium 3.5, BUN 102, creatinine 4.0, anion gap 17, estimated GFR 11, BUNs/creatinine ratio 25.5, glucose 168, calcium 9.8, AST 39, ALT 32, alkaline phosphatase 507 troponin 0.07, albumin 4.4, globulin 3.4 Patient received one push of hydralazine and 2 pushes of metoprolol and her blood pressure dropped to 177/93. Allergies/Medications Allergies: Coded Allergies: sitagliptin (From [employer]) (Severe, THROAT CLOSURE 02/05/17) Past History Travel History Traveled to [place] past 21 day No Medical History Neurological: NONE EENT: NONE Cardiovascular: AFIB (refuses/ not started on antico), aflutter, hypertension Respiratory: NONE Gastrointestinal: NONE Hepatic: NONE Renal: chronic kidney disease, CKD biopsy-proven diabetic/hypertensive nephropathy R.ARM AVF Musculoskeletal: gout Psychiatric: NONE Endocrine: diabetes, obesity, she reports that her diabetes has been referred for roughly 10 years. She denies any retinopathy. secondary hyperparathyroidism Blood Disorders: anemia Cancer(s): NONE NUTRITION TEACHER/Reproductive: NONE History of MRSA: No History of VRE: No History of CDIFF: No Surgical History Surgical History: 2 YEARS AGO (DR MEEHAN) [place] creation of an aVF exteriorization of an aVF Past Family/Social History Family History Relations & Conditions if any FATHER Heart failure MOTHER Valvular heart disease Psychosocial History ETOH Use: denies use Illicit Drug Use: denies illicit drug use Review of Systems Review of Systems Constitutional: Reports: weakness. Denies: chills, fever. EENTM: Reports: no symptoms. Cardiovascular: Denies: chest pain, orthopena, palpitations, syncope. Respiratory: Denies: cough, short of breath, sputum production, wheezing. GI: Denies: abdominal pain, constipation, diarrhea, nausea, vomiting. Genitourinary: Denies: discharge, frequency, hematuria, pain. Musculoskeletal: Reports: no symptoms. Skin: Reports: no symptoms. Neurological/Psychological: Denies: confusion, headache, numbness, tingling. Hematologic/Endocrine: Reports: no symptoms. Exam & Diagnostic Data Last 24 Hrs of Vital Signs/I&O Vital Signs Date Time Temp Pulse Resp B/P B/P Pulse O2 O2 Flow FiO2 Mean Ox Delivery Rate 02/07 2200 78 18 179/723 99 Room Air 02/07 2114 88 177/93 02/07 211 88 177/93 02/07 2049 98.0 72 20 199/83 99 Room Air 02/07 1917 61 18 173/97 100 Room Air 02/07 1846 213/93 02/07 1831 64 18 213/93 96 Room Air 02/07 1658 233/106 02/07 1606 98.9 76 20 233/100 96 Room Air Physical Exam General Appearance Alert, Oriented X3, Cooperative, No Acute Distress Skin No Rashes Skin Temp/Moisture Exam: Warm/Dry Sepsis Skin Exam (color): Normal for Ethnicity HEENT Atraumatic, PERRLA, EOMI Neck Supple Cardiovascular Normal S1, Normal S2 Lungs B/L DECREASED BREATH SOUNDS Abdomen Soft, No Tenderness Neurological Normal Speech, Strength at 5/5 X4 Ext, Normal Tone, Sensation Intact, Cranial Nerves 3-12 NL Extremities B/L PEDAL EDEMA WITH CHRONIC VENOUS CHANGES, LEFT FOOT DORSAL SURFACE HEALING WOUND AND LEFT BIG TOE POSSIBLE TOPHIE Assessment/Plan Assessment: 73 YO F, obese, former smoker with PMH of A.fib on Coumadin, HFpEF, chronic hypoxemic respiratory failure on home oxygen, DM, stage IV CKD, and moderate to severe pulmonary hypertension, gout, chronic anemia and secondary hyperaparthroidism was referred from primary care physician's office with chief complaint of elevated blood pressure, altered mental status and fatigue. We will admit the patient on telemetry floor for following problems. Hypertensive encephalopathy: -On admission patient's blood pressure was 233/106 and her confusion was resolved by itself site possibly patient had hypertensive encephalopathy rather than PRES has her confusion resolved and her imaging studies negative. -We will lower her blood pressure gradually not more than 25% drop in first 24 hours. -We will start hydralazine 25 mg 3 times a day as in the past patient blood pressure was under control with hydralazine but that was discontinued as her blood pressure remained under control without medications. -Renal artery Doppler study to rule out stenosis of renal arteries. -urine toxicology -Neuro checks -Neurology consult if needed History of chronic kidney injury: -Patient has stage IV kidney disease and she is on diuretics. -Continue sevelamer and torsemide -Continue iron supplementation -Avoid nephrotoxic medications -Input and output -BEP to monitor her BUN and creatinine level -Nephrology consult to r/o renovascular hypertension History of A. fib on anticoagulation: -Continue Coumadin -We will check INR and dose Coumadin accordingly -Continue diltiazem History of diabetes: -Accu-Cheks -Insulin NovoLog according to sliding scale History of hyperlipidemia: -Continue his rosuvastatin History of secondary hyperparathyroidism: -Continue calcitriol DVT prophylaxis: Mechanical and patient is already on Coumadin CODE STATUS: Full code As Ranked By This Provider Problem List: 1. Hypertensive encephalopathy Core Measures/Misc (04/30) Acute Coronary Syndrome ACS Diagnosis: No Congestive Heart Failure Congestive Heart Failure Diagnosis No Cerebrovascular Accident CVA/TIA Diagnosis: No VTE (View Protocol) VTE Risk Factors Age>40 No Mechanical VTE Prophylaxis d/t N/A MechProphylax Ordered No VTE Pharm Prophylaxis d/t NA PharmProphylax ordered Sepsis (View protocol) Sepsis Present: No If YES complete Sepsis Event Note If YES complete Sepsis Event Note John Montes MD 02/07/18 3972: General Information and HPI Allergies/Medications Home Med list Atorvastatin Calcium 10 MG TABLET 1 TAB PO QPM CHOLESTEROL (Reported) Calcitriol 0.25 MCG CAPSULE 1 CAP PO DAILY SUPPLEMENT (Reported) Diltiazem HCl (Cardizem Cd) 300 MG CAP.ER.24H 1 CAP PO DAILY HEART/BP ( Reported) Febuxostat (Uloric) 40 MG TABLET 1 TAB PO DAILY GOUT (Reported) Ferrous Sulfate 325 MG (65 MG IRON) TABLET 1 TAB PO TID Iron storage . Insulin Aspart (Niacinamide) (Fiasp 100 Unit/Ml Flextouch) 100 UNIT/ML (3 ML) INSULN.PEN 0 SC TIDAC blood sugar .Please administer as follow: Metoprolol Tartrate 25 MG TABLET 37.5 MG PO BID [place] . Potassium Chloride 20 MEQ TAB.ER.PRT 2 TAB PO QAM SUPPLEMENT (Reported) Sevelamer Carbonate (Renvela) 800 MG TABLET 2 TAB PO WM CKD Torsemide 20 MG TABLET 60 MG PO QAM DIURETIC (Reported) Warfarin Sodium (Coumadin) 7.5 MG TABLET 1 TAB PO AD BLOOD THINNER (Reported) Warfarin Sodium (Coumadin) 5 MG TABLET 1 TAB PO AD BLOOD THINNER (Reported) Core Measures/Misc (04/30) Sepsis (View protocol) If YES complete Sepsis Event Note If YES complete Sepsis Event Note Resident Review Statement Resident Statement: examined this patient, discussed with web development intern, agreed with web development intern, reviewed EMR data (avail) Other Findings: History of Present Illness 73-year-old woman with past medical history of atrial fibrillation on Coumadin, HFpEF, COPD not on home oxygen, insulin dependent diabetes mellitus, CKD, moderate/severe pulmonary hypertension, hyperparathyroidism, chronic wounds, obesity, and gout brought in by ambulance from her PCPs office for altered mental status. Patient reports that over the past several weeks whenever she took her blood pressure meds she felt "off". She does not take her blood pressure at home. She was seen by her senior data modeler whom told possibly change her beta-matt medication; patient was only taking 1.5 tablets of her 25 mg metoprolol tartrate daily after this visit. This past weekend she was seen in the [facility] ED for evaluation of these vague symptoms and was discharged home with instruction to follow-up with her PCP. She was seen by her PCP today whom found her blood pressure to be elevated and patient to be confused for which she was referred to the [facility] ED. Patient was found to be hypertensive to >200 systolic for which she was treated with metoprolol tartrate 5 mg IV push 2 and hydralazine 10 mg IV push reducing her blood pressure to approximately 180 systolic. Patient is awake and alert and oriented to person place and time and has no current complaints. Review of Systems Otherwise she denies any headache, fever, chills, current blurred/double vision, current lightheadedness/dizziness, chest pain, palpitations, heartburn, shortness of breath, cough, nausea, vomiting, diarrhea, constipation, urinary symptoms Social History Patient denies smoking or using alcohol. She is normally compliant with her medications however skips her medications this morning. Objective Vitals-Temp 98.0-98.9, HR 61-88, RR 18-20, SBP 177-233, SPO2 96-100% on room air Physical Exam -General: Well developed, well nourished [demographic] in [no acute distress] -HEENT: NCAT, PERRL, EOMI, anicteric sclera, moist mucous membranes -Neck: Supple, no JVD/HJR, no bruits, trachea midline, no accessory respiratory muscle use -Cardio: Normal S1/S2 without murmurs, gallops, or rub; regular rate and rhythm -Pulmonary: Clear to auscultation bilaterally -Abdomen: Soft, non-tender, non-distended, bowel sounds intact -Neuro: Awake and alert, CN II-XII grossly intact -Extremities: Normal pulses, no edema Labs / Imaging / Studies -CBC: WBC 11.2, hemoglobin 11.4, hematocrit 33.7, platelet 223 -BMP: Sodium 139, potassium 3.5, chloride 93, CO2 29, BUN 102, creatinine 4.0, anion gap 17, glucose 160 -LFT: AST 39, ALT 32, ALP 507 -Misc: Troponin I 0.07 -UA: Many epithelial cells, WBC 5-10, RBC 5-10, moderate bacteria -CXR: Unremarkable -EKG: Normal sinus rhythm, left anterior fascicular block, nonspecific interventricular conduction delay, poor R-wave progress Assessment 73-year-old woman with multiple medical problems significant for A. fib on Coumadin and CKD seen for evaluation of altered mental status and elevated blood pressure. Presently patient states that she feels well and has no complaints. Vital signs are significant for an elevated systolic blood pressure ranging 177-233. Physical exam reveals an elderly woman in no acute distress with a nonfocal neurologic examination and normal cardiopulmonary examination. Significant labs include WBC 11.2, K3.5, BUN/creatinine 102/4.0, glucose 168, alk phos 507, troponin [address] head demonstrated no acute intracranial pathology but commented on several chronic findings. Chest x-ray was unremarkable. Patient received hydralazine 10 mg IV, and metoprolol tartrate 5 mg IV 2 in the ED. Clinically patient appears to have hypertensive urgency/encephalopathy secondary to medication noncompliance and possibly renovascular hypertension given her history of CKD. She has had multiple hospital admissions and elevated blood pressure is never been an issue before. She was on hydralazine in the past which was discontinued for unclear reasons. Patient has no neurologic findings or symptoms at this time and blood pressure has been reduced to goal for the day. Patient is to be admitted to the telemetry floor for telemetry monitoring, renal ultrasound, blood pressure medications, and nephrology consultation. Problem List -Hypertensive urgency/encephalopathy -Atrial fibrillation on Coumadin, now in normal sinus rhythm -HFpEF -COPD, not on home oxygen -Insulin-dependent diabetes mellitus -CKD -Moderate/severe pulmonary hypertension -Hyperparathyroidism, on calcitriol -Obesity -Gout -Chronic lower extremity wounds Plan -Admit to telemetry floor -Telemetry monitoring -Accuchecks TIDAC/HS with NovoLog sliding scale -Neuro checks every 4 hours -Monitor ins and outs -Avoid dropping blood pressure greater than 25% and 24 hour -Hydralazine 25 mg p.o. 3 times daily -Continue home meds: Atorvastatin, calcitriol, diltiazem, iron, metoprolol, KCl, sevelamer, torsemide -Consult with nephrology for renovascular hypertension evaluation -Daily INR, dose Coumadin -Check urine toxicology -Obtain renal ultrasound -Pain control with acetaminophen -Regular diet -DVT prophylaxis with Coumadin -Full code Jamshid Salgado 02/08/18 0417: Core Measures/Misc (04/30) Sepsis (View protocol) If YES complete Sepsis Event Note If YES complete Sepsis Event Note Attending MD Review Statement Attending Statement Attending MD Statement: examined this patient, discuss w/resident/PA/RETORT OR CONDENSER PRESS OPERATOR, agreed w/resident/PA/RETORT OR CONDENSER PRESS OPERATOR, reviewed EMR data (avail), reviewed images, amended to note Attending Assessment/Plan: CC: High blood pressure PMH: afib, HfpEF, home 02, DM, CKD, Pulm HTN R carotid stenosis, obesity Patient was in ER on for feeling confused and dizzy. Her BP was elevated at that time, her metoprolol dose was not appropriate which was addressed in that ER visit and she was suggested to follow up with PCP. She went to see PCP today where she again felt very confused, not herself and her blood pressure was significantly elevated so she was sent to ER. According to patient after her recent discharge, a visiting nurse told her to take metoprolol only once daily and she recently realized that. She denies any chest pain, palpitation, neurological weakness, blurry vision, double vision otherwise complete ROS unremarkable. Vitals: Temperature 98.9, pulse 76, RR 20, blood pressure 233/100 on arrival, saturating 96% on room air On exam: A O 3, cooperative, no acute distress, neck supple, JVD normal, no lymphadenopathy, mucosa moist, complete neurological examination unremarkable, patient moves her left side of the lip abnormally probably secondary to her recent dental procedure, no dependent edema, no obvious skin rashes or inflammation , left great toe is swollen CVS: S1-S2, irregular RS: Clear to auscultate bilaterally. Abdomen: Soft, NT, ND, bowel sounds present. AV fistula right arm bruit present CXR: No acute pulmonary process. Stable enlargement of the cardiac silhouette. CT head: - No acute intracranial abnormality. - There is global cerebral volume loss and there is moderate chronic microangiopathy. There is a chronic infarct involving the left precentral gyrus. Chronic lacunar infarcts within the deep benz nuclei bilaterally. Assessment and plan 73-year-old female with extensive past medical history as mentioned above was sent from primary care office for elevated blood pressure area at her BP was significantly elevated at 233/100 on arrival. Patient stated that she felt confused, not herself which eventually improved after the treatment of blood pressure in ER. Complete neurological examination unremarkable, patient denies any chest pain or palpitation blood in vision or double vision. Patient has hypertensive urgency probably secondary to improper med reconciliation. According to patient, her nurse told her to take metoprolol only once daily and she recently realized that was a mistake. Additionally the patient was seen in ER on February 03 when her blood pressure was 190/94. Patient was initially admitted in month of September and at the time of discharge on September 19 her hydralazine 25 mg was discontinued. Patient was readmitted again on October 05 when she was not on hydralazine and her blood pressure appeared very well controlled. It appears the recent increase in her blood pressure, renovascular causes should be ruled out. Patient has lost significant weight after diuresis outpatient and has not been on dialysis. + Hypertensive emergency + Hypertensive encephalopathy improved + History of afib, HfpEF, home 02, DM, CKD, Pulm HTN R carotid stenosis, obesity - Admit to telemetry - Continuous telemetry monitoring - Start hydralazine 25 mg by mouth twice a day from tomorrow - When necessary labetalol or hydralazine push for elevated blood pressure, current goal should be 180 systolic than gradual treatment after that - Renal Doppler ultrasound - Nephrology consult - Neurochecks 4-6 hours - U tox - Continue on her home medications - DVT prophylaxis warfarin - Serial clinical examination of left toe: watch for any infection
--- NOTE | 2018-02-08 04:18 | Admission Certification ---
Admission Certification Certification Statement - As attending physician, I certify that at the time of - admission, based on clinical presentation, severity of - symptoms, need for further diagnostic testing and - therapeutic interventions, and risk of adverse outcomes - without in-hospital treatment, in my clinical assessment, - this patient requires an acute hospital stay for a minimum - of two nights or longer. I have also considered psychsocial - factors such as support system, advanced age, financial - issues, cognitive issues, and failed out-patient treatments, - past re-admission history, safety of patient, and lack of - compliance as applicable. Specific rationale supporting this admission is: Hypertensive emergency
[2018-02-08 07:01] VITALS: BP 196/87
--- NOTE | 2018-02-08 07:21 | PN- Housestaff ---
Cristhian BARBOUR,Lydia 02/08/18 0721: Subjective Follow-up For: TIA Hypertensive encephalopathy History of CKD Tele-Events Since Last Visit: Patient had an episode of A. fib with RVR around 8 a.m. when her heart rate was in the 160, overnight patient heart rate was in the 80s, Subjective: Patient examined at bedside, she is having palpitation in the long term acute care registered nurse however she denies palpitation at the time of the encounter. She denies any chest pain or headache. Around 8 AM she was found to be in A. fib with RVR with heart rate in the 160, she was given her morning doses of metoprolol and diltiazem after which her heart rate decreased to 80s, blood pressure this a.m. was 148/78 Review of Systems Constitutional: Reports: see HPI. Objective Last 24 Hrs of Vital Signs/I&O Vital Signs Date Time Temp Pulse Resp B/P B/P Pulse O2 O2 Flow FiO2 Mean Ox Delivery Rate 02/08 1607 98.9 59 22 141/63 98 Room Air 02/08 1429 97.4 64 18 134/86 97 Room Air 02/08 0823 172 148/78 02/08 0701 98.0 55 20 196/87 98 Room Air 02/08 0550 66 198/86 02/08 0048 Room Air 02/07 2359 98.0 68 18 198/82 02/07 2356 68 18 198/82 98 Room Air 02/07 2200 78 18 179/723 99 Room Air 02/07 2114 88 177/93 02/07 2114 88 177/93 02/07 2049 98.0 72 20 199/83 99 Room Air 02/07 1917 61 18 173/97 100 Room Air 02/07 1846 213/93 02/07 1831 64 18 213/93 96 Room Air 02/07 1658 233/106 Intake & Output 02/08 1600 02/08 0800 02/08 0000 Intake Total 650 300 Output Total 100 Balance 650 300 -100 Intake, Oral 650 300 Number 1 Bowel Movements Output, Urine 100 Patient 199 lb 200 lb Weight Weight Bed scale Measurement Method Physical Exam General Appearance: Alert, Oriented X3, Cooperative, No Acute Distress HEENT: Atraumatic, PERRLA, EOMI, Mucous Membr. moist/pink Cardiovascular: Normal S1, Normal S2 Lungs: Clear to Auscultation Abdomen: Normal Bowel Sounds, Soft, No Tenderness Neurological: Normal Speech, Strength at 5/5 X4 Ext, Normal Tone, Sensation Intact, Cranial Nerves 3-12 NL Extremities: No Clubbing, No Cyanosis, No Edema Assessment/Plan Assessment: 73 YO F, obese, former smoker with PMH of Vandana on Coumadin, HFpEF, chronic hypoxemic respiratory failure on home oxygen, DM, stage IV CKD, and moderate to severe pulmonary hypertension, gout, chronic anemia and secondary hyperaparthroidism was referred from primary care physician's office with chief complaint of elevated blood pressure, altered mental status and fatigue. TIA, hypertensive urgency On admission the patient blood pressure was 230/100, patient complained of episodes of confusion, today patient had an episode of increasing confusion, on examination shows found to have left hemineglect, otherwise neurological exam was normal, CT had ruled out acute hemorrhage Continue CTA head and neck because of CKD We will follow-up on Doppler ultrasound of carotid, neurologist was informant and she recommended to lower her blood pressure gradually not more than 25% drop in first 24 hours. -Hydralazine 50 mg twice daily to be given only if blood pressure is above 170/ 90 -Renal artery Doppler study excluded renal artery stenosis -urine toxicology was negative -Neuro checks Start aspirin initial dose of 325 once to be followed by 81 mg daily Start atorvastatin 40 mg daily -Neurology consult appreciated History of chronic kidney injury: -Patient has stage IV kidney disease and she is on diuretics. -Continue sevelamer DC torsemide because of TIA -Continue iron supplementation -Avoid nephrotoxic medications -Input and output -BEP to monitor her BUN and creatinine level -Nephrology recommendation appreciated History of Margaret duffy on anticoagulation: -Continue Coumadin, INR is subtherapeutic, will give 7.5 mg today -We will check INR and dose Coumadin accordingly -Continue diltiazem Cardiology consult appreciated History of diabetes: -Accu-Cheks -Insulin NovoLog according to sliding scale History of hyperlipidemia: Start atorvastatin 40 mg daily History of secondary hyperparathyroidism: -Continue calcitriol DVT prophylaxis: Mechanical and patient is already on Coumadin CODE STATUS: Full code Problem List: 1. Hypertensive encephalopathy 2. Afib 3. TIA (transient ischemic attack) Pain Ratin Pain Location: N/A Pain Goal: Remain pain free Pain Plan: Pathway Tomorrow's Labs & Rationales: CBC BEP Anh Cook 02/08/18 1313: Attending MD Review Statement Attending Statement Attending MD Statement: examined this patient, discuss w/resident/PA/WIRELESS TEAM MEMBER, agreed w/resident/PA/WIRELESS TEAM MEMBER, discussed with family, reviewed EMR data (avail), discussed with nursing, discussed with case mgmt, reviewed images, amended to note Attending Assessment/Plan: 73 yr old WF w mult med problems including DM, HTN, CHF, Afib, & advanced CKD admit yesterday w transient confusion, fatigue & uncontrolled HTN. Patient seen/examined bedside. NO new complaints. Her confusion has improved since arrival. BP better. She had episode of afib overnight HR 150s. Patient admitted here for uncontrolled hypertension with confusion and found to be in uncontrolled afib with RVR. Patient is on coumadin at home. 7.5 mg dose today. INR 1.94. Cardiology consult. Continue home dose of b matt. CKD stage 5: stable, nephrology consulted. hypertension uncontrolled; chnage hydralazine to 50 bid. Monitor bp. gi/dvt prophylaxis full code.
[2018-02-08 08:02] LABS: ABSOLUTE BASOPHIL COUNT 0.1 /CUMM (0.0-0.2); ABSOLUTE EOSINOPHIL COUNT 0.5 /CUMM (0.0-0.7); ABSOLUTE GRANULOCYTE CT 6.6 /CUMM (1.4-6.5); ABSOLUTE LYMPH COUNT 2.2 /CUMM (1.2-3.4); BASOPHIL % 0.7 % (0.0-2.0); EOSINOPHIL % 4.5 % (0-5); HEMATOCRIT 30.8 % (37-47); MEAN CORPUSCULAR HGB 28.7 PG (27.0-31.0); MEAN CORPUSCULAR VOLUME 84.4 FL (81.0-99.0); MEAN PLATELET VOLUME 9.4 FL (7.4-10.4); PLATELET COUNT 214 /CUMM (130-400); RBC DISTRIBUTION WIDTH 14.9 % (11.5-14.5); RED BLOOD CELL CT 3.65 /CUMM (4.20-5.40); WHITE BLOOD CELL COUNT 10.3 /CUMM (4.8-10.8)
[2018-02-08 08:39] LABS: PT 21.3 SEC (9.4-12.5)
--- NOTE | 2018-02-08 09:42 | Cons- Nephrology ---
General Information and HPI Consulting Request Date of Consult: 02/08/18 Requested By: Jeoy BARBOUR,Anh Reason for Consult: CKD & accelerated HTN Source of Information: patient, old records Exam Limitations: no limitations History of Present Illness: 73 yr old WF w mult med problems including DM, HTN, CHF, Afib, & advanced CKD admit yesterday w transient confusion, fatigue & uncontrolled HTN. Did not take BP meds yesterday AM & BP 230/100 requiring IV hydralazine & metoprolol. Known CKD 5/ESRD w REX AVF & baseline Cr in low 4s not yet on HD. GFR near baseline w Cr 4.2 on admit & denies all uremic sx. No CP or SOB; no edema on outpt toresemide & metolazone. Allergies/Medications Allergies: Coded Allergies: sitagliptin (From [employer]) (Severe, THROAT CLOSURE 02/05/17) Home Med List: Atorvastatin Calcium 10 MG TABLET 1 TAB PO QPM CHOLESTEROL (Reported) Calcitriol 0.25 MCG CAPSULE 1 CAP PO DAILY SUPPLEMENT (Reported) Diltiazem HCl (Cardizem Cd) 300 MG CAP.ER.24H 1 CAP PO DAILY HEART/BP ( Reported) Febuxostat (Uloric) 40 MG TABLET 1 TAB PO DAILY GOUT (Reported) Ferrous Sulfate 325 MG (65 MG IRON) TABLET 1 TAB PO TID Iron storage . Insulin Aspart (Niacinamide) (Fiasp 100 Unit/Ml Flextouch) 100 UNIT/ML (3 ML) INSULN.PEN 0 SC TIDAC blood sugar .Please administer as follow: Metoprolol Tartrate 25 MG TABLET 37.5 MG PO BID HEART HEALTH . Potassium Chloride 20 MEQ TAB.ER.PRT 2 TAB PO QAM SUPPLEMENT (Reported) Sevelamer Carbonate (Renvela) 800 MG TABLET 2 TAB PO WM CKD Torsemide 20 MG TABLET 60 MG PO QAM DIURETIC (Reported) Warfarin Sodium (Coumadin) 7.5 MG TABLET 1 TAB PO AD BLOOD THINNER (Reported) Warfarin Sodium (Coumadin) 5 MG TABLET 1 TAB PO AD BLOOD THINNER (Reported) Current Medications: Current Medications Sig/Cole Start time Last Medication Dose Route Stop Time Status Admin Acetaminophen 650 MG Q6P PRN 02/07 2330 AC PO Alprazolam 0.25 MG ONCE ONE 02/08 0830 DC PO 02/08 0831 Atorvastatin Calcium 10 MG QPM 02/08 2100 AC PO Calcitriol 0.25 MCG DAILY 02/08 0900 AC 02/08 PO 0822 Diltiazem HCl 300 MG DAILY 02/08 0900 AC 02/08 PO 0823 Ferrous Sulfate 325 MG TID 02/08 0900 AC 02/08 PO 0822 Hydralazine HCl 25 MG TID 02/07 2326 AC 02/08 PO 0550 Hydralazine HCl 0 .STK-MED ONE 02/07 2107 DC .ROUTE Hydralazine HCl 0 .STK-MED ONE 02/07 2057 DC .ROUTE Hydralazine HCl 10 MG ONCE ONE 02/07 1915 DC 02/07 IV 02/07 Insulin Aspart 0 TIDAC 02/08 08 AC SC Metoprolol Tartrate 37.5 MG BID 02/08 09 AC 02/08 PO 0823 Metoprolol Tartrate 5 MG ONCE ONE 02/07 1845 DC 02/07 IV 02/07 1846 1846 Metoprolol Tartrate 0 .STK-MED ONE 02/07 1841 DC IV Metoprolol Tartrate 0 .STK-MED ONE 02/07 1648 DC IV Metoprolol Tartrate 5 MG ONCE ONE 02/07 1645 DC 02/07 IV 02/07 1646 1658 Potassium Chloride 40 MEQ QAM 02/08 09 AC 02/08 PO 0822 Sevelamer Carbonate 1,600 MG WM 02/08 0800 AC PO Torsemide 60 MG QAM 02/08 0900 AC 02/08 PO 0824 Review of Systems Review of Systems Constitutional: Reports: malaise. EENTM: Denies: no symptoms. Cardiovascular: Denies: no symptoms. Respiratory: Denies: no symptoms. GI: Denies: no symptoms. Genitourinary: Denies: no symptoms. Musculoskeletal: Denies: no symptoms. Skin: Denies: no symptoms. Neurological/Psychological: Reports: confusion (transient). Hematologic/Endocrine: Denies: no symptoms. Immunologic/Allergic: Denies: no symptoms. All Other Systems: Reviewed and Negative Past History Travel History Traveled to [place] past 21 day No Medical History Blood Transfusion Hx: Yes Neurological: NONE EENT: NONE Cardiovascular: AFIB (refuses/ not started on antico), aflutter, hypertension Respiratory: NONE Gastrointestinal: NONE Hepatic: NONE Renal: chronic kidney disease, CKD biopsy-proven diabetic/hypertensive nephropathy R.ARM AVF Musculoskeletal: gout Psychiatric: NONE Endocrine: diabetes, obesity, she reports that her diabetes has been referred for roughly 10 years. She denies any retinopathy. secondary hyperparathyroidism Blood Disorders: anemia Cancer(s): NONE POTTERY STRIPER/Reproductive: NONE Surgical History [facility]: [facility] exterior[facility] of an aVF Family History Relations & Conditions If Any: FATHER Heart failure MOTHER Valvular heart disease Psychosocial History Where Do You Live? Home Services at Home: Nursing Smoking Status: Never Smoked ETOH Use: denies use Illicit Drug Use: denies illicit drug use Exam & Diagnostic Data Vital Signs and I&O Vital Signs Date Time Temp Pulse Resp B/P B/P Pulse O2 O2 Flow FiO2 Mean Ox Delivery Rate 02/08 0823 172 148/78 02/08 0701 98.0 55 20 196/87 98 Room Air 02/08 0550 66 198/86 02/08 0048 Room Air 02/07 2359 98.0 68 18 198/82 02/07 2356 68 18 198/82 98 Room Air 02/07 2200 78 18 179/723 99 Room Air 02/07 2114 88 177/93 02/07 2114 88 177/93 02/07 2049 98.0 72 20 199/83 99 Room Air 02/07 1917 61 18 173/97 100 Room Air 02/07 1846 213/93 02/07 1831 64 18 213/93 96 Room Air 02/07 1658 233/106 02/07 1606 98.9 76 20 233/100 96 Room Air Intake & Output 02/08 1600 02/08 0400 02/07 1600 02/07 0400 02/06 1600 02/06 0400 Intake Total 300 Output Total 100 Balance 300 -100 Intake, Oral 300 Output, Urine 100 Patient 199 lb Weight Weight Bed scale Measurement Method Physical Exam General Appearance: well developed/nourished, no apparent distress, alert, awake Head: atraumatic, normal appearance Eyes: Bilateral: normal appearance. Ears, Nose, Throat: normal ENT inspection Neck: normal inspection Respiratory: normal breath sounds, no respiratory distress, quiet respiration, lungs clear Cardiovascular: friction rub (none), irregularly irregular Gastrointestinal: soft, non-tender, no organomegaly Extremities: no edema, + bruit REX AVF Neurologic/Psych: no motor/sensory deficits, awake, alert, oriented x 3, microsoft bi consultant II- XII nml as tested, no asterixis Skin: intact, normal color, warm/dry Lymphatic: no anterior cervical johana, no axil adenopathy Results Pertinent Lab Results: Laboratory Tests 02/08 02/07 0609 1655 Chemistry Sodium (137 - 145 mmol/L) 141 Potassium (3.5 - 5.1 mmol/L) 3.0 L Chloride (98 - 107 mmol/L) 97 L Carbon Dioxide (22 - 30 mmol/L) 29 Anion Gap (5 - 16) 16 BUN (7 - 17 mg/dL) 98 H Creatinine (0.5 - 1.0 mg/dL) 3.8 H Estimated GFR (>60 ml/min) 12 L BUN/Creatinine Ratio (7 - 25 %) 25.8 H Magnesium (1.6 - 2.3 mg/dL) 2.2 Coagulation PT (9.4 - 12.5 SEC) 21.3 H INR (0.90 - 1.19) 1.94 H Hematology CBC w Diff NO MAN DIFF REQ WBC (4.8 - 10.8 /CUMM) 10.3 RBC (4.20 - 5.40 /CUMM) 3.65 L Hgb (12.0 - 16.0 G/DL) 10.5 L Hct (37 - 47 %) 30.8 L MCV (81.0 - 99.0 FL) 84.4 MCH (27.0 - 31.0 PG) 28.7 MCHC (33.0 - 37.0 G/DL) 34.0 RDW (11.5 - 14.5 %) 14.9 H Plt Count (130 - 400 /CUMM) 214 MPV (7.4 - 10.4 FL) 9.4 Gran % (42.2 - 75.2 %) 64.0 Lymphocytes % (20.5 - 51.1 %) 21.5 Monocytes % (1.7 - 9.3 %) 9.3 Eosinophils % (0 - 5 %) 4.5 Basophils % (0.0 - 2.0 %) 0.7 Absolute Granulocytes (1.4 - 6.5 /CUMM) 6.6 H Absolute Lymphocytes (1.2 - 3.4 /CUMM) 2.2 Absolute Monocytes (0.10 - 0.60 /CUMM) 1.0 H Absolute Eosinophils (0.0 - 0.7 /CUMM) 0.5 Absolute Basophils (0.0 - 0.2 /CUMM) 0.1 Toxicology Urine Opiates Screen (>2000 NG/ML) < 100 Methadone Screen (>300 NG/ML) 42 Barbiturate Screen (>200 NG/ML) < 60 Ur Phencyclidine Scrn (>25 NG/ML) < 6.00 Amphetamines Screen (>1000 NG/ML) < 100 U Benzodiazepines Scrn (>200 NG/ML) < 85 Urine Cocaine Screen (>300 NG/ML) < 50 Urine Cannabis Screen (>50 NG/ML) < 5.00 Urines Urinalysis LIGHT H Urine Color (YEL,AMB,STR) YEL Urine Clarity (CLEAR) HAZY H Urine pH (5.0 - 8.0) 6.0 Ur Specific Dougherty (1.001 - 1.035) 1.020 Urine Protein (NEG,<30 MG/DL) 100 H Urine Ketones (NEG) NEG Urine Nitrite (NEG) NEG Urine Bilirubin (NEG) NEG Urine Urobilinogen (0.1 - 1.0 EU/dl) 0.2 Ur Leukocyte Esterase (NEG) SMALL H Ur Microscopic SEDIMENT EXAMINED Urine RBC (0 - 5 /HPF) 5-10 H Urine WBC (0 - 2 /HPF) 5-10 H Ur Epithelial Cells (NONE,FEW) MANY H Urine Bacteria (NEG/NONE) MOD H Hyaline Casts (0/LPF) RARE H Granular Casts (NONE /LPF) RARE H Urine Mucus (FEW,NONE) RARE Urine Hemoglobin (NEG) MOD H Urine Glucose (N MG/DL) 100 H 02/07 1648 Chemistry Sodium (137 - 145 mmol/L) 139 Potassium (3.5 - 5.1 mmol/L) 3.5 Chloride (98 - 107 mmol/L) 93 L Carbon Dioxide (22 - 30 mmol/L) 29 Anion Gap (5 - 16) 17 H BUN (7 - 17 mg/dL) 102 *H Creatinine (0.5 - 1.0 mg/dL) 4.0 H Estimated GFR (>60 ml/min) 11 L BUN/Creatinine Ratio (7 - 25 %) 25.5 H Glucose (65 - 99 mg/dL) 168 H Calcium (8.4 - 10.2 mg/dL) 9.8 Total Bilirubin (0.2 - 1.3 mg/dL) 0.7 AST (14 - 36 U/L) 39 H ALT (9 - 52 U/L) 32 Alkaline Phosphatase (<127 U/L) 507 H Troponin I (< 0.11 ng/ml) 0.07 Total Protein (6.3 - 8.2 g/dL) 7.8 Albumin (3.5 - 5.0 g/dL) 4.4 Globulin (1.9 - 4.2 gm/dL) 3.4 Albumin/Globulin Ratio (1.1 - 2.2 %) 1.3 Hematology CBC w Diff NO MAN DIFF REQ WBC (4.8 - 10.8 /CUMM) 11.2 H RBC (4.20 - 5.40 /CUMM) 4.02 L Hgb (12.0 - 16.0 G/DL) 11.4 L Hct (37 - 47 %) 33.7 L MCV (81.0 - 99.0 FL) 83.8 MCH (27.0 - 31.0 PG) 28.3 MCHC (33.0 - 37.0 G/DL) 33.8 RDW (11.5 - 14.5 %) 15.3 H Plt Count (130 - 400 /CUMM) 223 MPV (7.4 - 10.4 FL) 9.0 Gran % (42.2 - 75.2 %) 71.9 Lymphocytes % (20.5 - 51.1 %) 16.1 L Monocytes % (1.7 - 9.3 %) 8.6 Eosinophils % (0 - 5 %) 2.9 Basophils % (0.0 - 2.0 %) 0.5 Absolute Granulocytes (1.4 - 6.5 /CUMM) 8.0 H Absolute Lymphocytes (1.2 - 3.4 /CUMM) 1.8 Absolute Monocytes (0.10 - 0.60 /CUMM) 1.0 H Absolute Eosinophils (0.0 - 0.7 /CUMM) 0.3 Absolute Basophils (0.0 - 0.2 /CUMM) 0.1 Imaging/Other Studies: CXR: FINDINGS: Symmetric lung inflation. There is no focal consolidation, pleural effusion, or pneumothorax. Cardiac silhouette is enlarged and unchanged. There are no acute osseous findings. IMPRESSION: No acute pulmonary process. Stable enlargement of the cardiac silhouette. CT: No acute intracranial abnormality. There is global cerebral volume loss and there is moderate chronic microangiopathy. There is a chronic infarct involving the left precentral gyrus. Chronic lacunar infarcts within the deep benz nuclei bilaterally. Assessment/Plan Assessment/Recommendations Assessment: 1. CKD: stage 5/ESRD due to DM & HTN; near baseline w/o HD indication but may have prerenal component w increased BUN & lack of volume overload on exam 2. HTN: uncontrolled on admit due to med confusion/noncompliance. Improved this AM as meds restarted & hydralazine added 3. CHF: controlled w diuretics; no need for metolazone @ present time but would continue current torsemide Recommendations: 1. change hydralazine tid --> bid to aid compliance - try 50 mg bid 2. continue torsemide 3. hold metolazone 4. KCl replacement po
--- NOTE | 2018-02-08 12:37 | ULTRASOUND REPORT ---
EXAMINATION: US RETROPERITONEAL COMPLETE (RENAL) US ABDOMEN/PELVIS ORGAN DOPPLER CLINICAL INFORMATION: Hypertensive urgency. History of chronic renal disease. Persistent hypertension. Evaluate for renal artery stenosis.. COMPARISON: CT images of the abdomen from 08/26/2017 TECHNIQUE: Real-time imaging of the kidneys and bladder was performed. In addition, pulsed color Doppler imaging and spectral waveform analysis of the renal arteries was performed. FINDINGS: RIGHT KIDNEY: 11.2 x 4.6 x 5.4 cm (SAG x AP x TRV). Diffuse, mild atrophy of the renal cortex. The renal cortex has normal echotexture. No nephrolithiasis or hydronephrosis. 0.9 cm simple cortical cyst in the lateral interpolar region. Renal vascular calcifications are seen. LEFT KIDNEY: 10.7 x 4.3 x 5.7 cm (SAG x AP x TRV). Diffuse, mild atrophy of the renal cortex. The cortex has normal echotexture. No focal parenchymal lesion, nephrolithiasis or hydronephrosis. Renal vascular calcifications are seen. BLADDER: The urinary bladder is well distended to an estimated volume of 181 mL. No bladder mass, debris or calculi. Right and left ureteral jets were seen. Patient refused postvoid imaging. RENAL DOPPLER: At the level of the renal arteries, the peak systolic velocity of the abdominal aorta is 62 cm/sec. The visualized renal arteries have sharp systolic upstrokes; no tardus-parvus flow. The proximal right renal artery could not be visualized. The peak systolic velocities measured within the visualized mid and distal segments of the right renal artery are 66 and 99 cm/sec, respectively. The peak systolic velocities measured within the proximal, mid and distal left renal artery are 55, 98 and 93 cm/sec, respectively. The renal artery/aorta velocity ratios are 1.6 on the right and 1.5 on the left. IMPRESSION: 1. Mild bilateral renal cortical atrophy. 2. Atherosclerotic calcification of renal arteries. 3. The proximal right renal artery could not be visualized. Within the visualized renal arteries, there was no Doppler imaging evidence of hemodynamically significant stenosis.
--- NOTE | 2018-02-08 14:11 | CT SCAN REPORT ---
EXAMINATION: CT HEAD WITHOUT CONTRAST CLINICAL INFORMATION: Hemineglect right. Stroke alert. COMPARISON: CT scans of the head 02/03/2018 at 02/07/2018. TECHNIQUE: Contiguous axial imaging was performed from the skull base to vertex without intravenous administration of contrast. DLP: 619.19 mGy-cm FINDINGS: The study redemonstrates extensive scattered areas of hypoattenuation in the periventricular and subcortical white matter bilaterally, which grossly appear similar compared to prior imaging. These changes are most severe in the left greater than right centra semiovale and in the inferior right frontal lobe. There are also areas of low attenuation in the basal ganglia bilaterally consistent with acute infarcts. There is no evidence of acute intracranial hemorrhage. No abnormal mass effect or midline shift is seen. Guerrero to white matter differentiation is well preserved. No extra-axial fluid collections are identified. The ventricles and sulci are commensurately prominent consistent with [id number] diffuse volume loss. There are extensive atheromatous calcifications of the cavernous internal carotid arteries and vertebral arteries bilaterally. There are no acute osseous findings. There is hyperostosis frontalis interna. The soft tissues are unremarkable. The mastoid air cells and visualized paranasal sinuses are well-aerated. IMPRESSION:. 1. There are no acute bleeds or definite territorial infarcts. 2. There is diffuse volume loss. There is extensive chronic microvascular ischemic disease and lacunar infarcts. A focus of more acute ischemia cannot be excluded on the basis of this study. 3. This critical result was discussed with Julita Robledo by telephone on 02/08/2018 at 2:05 PM and it was ascertained that the content and urgency of the report was understood at the time of direct communication.
[2018-02-08 14:17] LABS: ABSOLUTE BASOPHIL COUNT 0.1 /CUMM (0.0-0.2); ABSOLUTE EOSINOPHIL COUNT 0.3 /CUMM (0.0-0.7); ABSOLUTE GRANULOCYTE CT 7.8 /CUMM (1.4-6.5); ABSOLUTE LYMPH COUNT 1.7 /CUMM (1.2-3.4); BASOPHIL % 0.8 % (0.0-2.0); EOSINOPHIL % 3.2 % (0-5); GRANULOCYTE % 71.3 % (42.2-75.2); HEMATOCRIT 32.4 % (37-47); MEAN CORPUSCULAR HGB 28.6 PG (27.0-31.0); MEAN CORPUSCULAR HGB CONC 33.7 G/DL (33.0-37.0); MEAN CORPUSCULAR VOLUME 84.8 FL (81.0-99.0); MEAN PLATELET VOLUME 8.2 FL (7.4-10.4); PLATELET COUNT 250 /CUMM (130-400); RBC DISTRIBUTION WIDTH 14.6 % (11.5-14.5); RED BLOOD CELL CT 3.82 /CUMM (4.20-5.40); WHITE BLOOD CELL COUNT 10.9 /CUMM (4.8-10.8)
--- NOTE | 2018-02-08 14:28 | Event Note ---
Event Note Event Note: Situation :Rapid response was called at 13:25 for altered mental status Background: Patient was admitted yesterday for hypertensive emergency and encephalopathy and atrial fibrillation with RVR Evaluation: Patient was immediately evaluated, alert oriented 3, vital signs blood pressure 152/78, heart rate 68 and regular, saturating 98% on room air, blood glucose 171 Neuro exam. Cranial nerves 12 were intact except for left visual field neglect however visual acuity intact. Motor and sensory intact bilateral 4--- NIH score 3 Stroke alert was called Received a call from the oncall neurologist immediately, recommendation for CT head without contrast followed by CTA head and neck Patient symptoms improved within 2 minutes Repeated neuro exam cranial nerves 12, motor and sensory bilateral 4 are intact Patient was taken to CT, Dr. Menon , accompined the patient. CT head negative for any hemorrhagic stroke, no acute stroke was identified especially with the extensive volme loss of the brain CTA head and neck were held in sitting of chronic kidney disease of creatinine 4 , A stat call to mail distribution clerk Dr. Cazares was placed, he called immediately and cleared the patient for CTA if needed. We held off CTA at this time given reversible of patient's symptoms (only left visual field neglect, no dense hemiplegia or dysarthria) and low NIH score 3 Patient was evaluated again after the CT head and neuro exam continued to be normal Attending Dr. Cook and attending Dr. Miller were present Recommendation Aspirin full dose and Lipitor 40 Continue aspirin low dose Discussed with for continuation anticoagulation with warfarin, recommendation to continue anticoagulation Keep blood pressure systolic around 170 range Discontinue torsemide Continue diltiazem and metoprolol Carotid ultrasound Echocardiogram Neuro consultation PT, OT Bedside swallow eval normal, continue the diet Repeated CBC and BEP same
[2018-02-08 14:29] VITALS: BP 134/86
[2018-02-08 14:35] LABS: PT 21.2 SEC (9.4-12.5); PTT 35 SEC (25-37)
[2018-02-08 16:07] VITALS: BP 141/63
--- NOTE | 2018-02-08 16:07 | Cons- Cardiology ---
General Information and HPI Consulting Request Date of Consult: 02/08/18 Requested By: Anh Cook MD Reason for Consult: Atrial fibrillation with a rapid ventricular response. Source of Information: patient, old records Exam Limitations: poor historian History of Present Illness: Mrs. Leslie Yao is a 73-year-old female with a history of gout, dyslipidemia, hypertension, diabetes mellitus, chronic kidney disease status post creation of right upper extremity AV fistula without the need for use, chronic anemia on an erythropoietin stimulating agent, and paroxysmal atrial fibrillation s/p electrical cardioversion following a CARI ~2015 with recurrence and successful antiarrhythmic therapy with chemical cardioversion ~2017 with several hospitalizations (08/23-09/01/2017; 09/09-09/19/2017; 10/05-10/17/2017) for atrial fibrillation with rapid ventricular response rates and acute on chronic diastolic heart failure (HFpEF) who presented to the ED on 02/07/2018 a.m. from her primary care physician's office with altered mental status ( confusion), fatigue, and hypertensive urgency (233/100 mmHg) after not taking her hypertensive medications at home. She received IV hydralazine and IV metoprolol in the ED with improved clinical status and vital signs. This morning at ~5:18 a.m. she had an episode of narrow complex, regular, tachyarrhythmia at 150 bpm consistent with atrial flutter with 2:1 block. At ~1:25 p.m. this afternoon, she again had altered mental status w/o any dysrhythmias or hemodynamic instability. Allergies/Medications Allergies: Coded Allergies: sitagliptin (From [employer]) (Severe, THROAT CLOSURE 02/05/17) Home Med List: Atorvastatin Calcium 10 MG TABLET 1 TAB PO QPM CHOLESTEROL (Reported) Calcitriol 0.25 MCG CAPSULE 1 CAP PO DAILY SUPPLEMENT (Reported) Diltiazem HCl (Cardizem Cd) 300 MG CAP.ER.24H 1 CAP PO DAILY HEART/BP ( Reported) Febuxostat (Uloric) 40 MG TABLET 1 TAB PO DAILY GOUT (Reported) Ferrous Sulfate 325 MG (65 MG IRON) TABLET 1 TAB PO TID Iron storage . Insulin Aspart (Niacinamide) (Fiasp 100 Unit/Ml Flextouch) 100 UNIT/ML (3 ML) INSULN.PEN 0 SC TIDAC blood sugar .Please administer as follow: Metoprolol Tartrate 25 MG TABLET 37.5 MG PO BID HEART Plunify . Potassium Chloride 20 MEQ TAB.ER.PRT 2 TAB PO QAM SUPPLEMENT (Reported) Sevelamer Carbonate (Renvela) 800 MG TABLET 2 TAB PO WM CKD Torsemide 20 MG TABLET 60 MG PO QAM DIURETIC (Reported) Warfarin Sodium (Coumadin) 7.5 MG TABLET 1 TAB PO AD BLOOD THINNER (Reported) Warfarin Sodium (Coumadin) 5 MG TABLET 1 TAB PO AD BLOOD THINNER (Reported) Past History Travel History Traveled to [place] past 21 day No Medical History Blood Transfusion Hx: Yes Neurological: NONE EENT: NONE Cardiovascular: AFIB (refuses/ not started on antico), aflutter, hypertension Respiratory: NONE Gastrointestinal: NONE Hepatic: NONE Renal: chronic kidney disease, CKD biopsy-proven diabetic/hypertensive nephropathy R.ARM AVF Musculoskeletal: gout Psychiatric: NONE Endocrine: diabetes, obesity, she reports that her diabetes has been referred for roughly 10 years. She denies any retinopathy. secondary hyperparathyroidism Blood Disorders: anemia Cancer(s): NONE VP PATIENT/Reproductive: NONE Surgical History Surgical History: 2 YEARS AGO (DR MEEHAN) [place] creation of an aVF exteriorization of an aVF Family History Relations & Conditions If Any: FATHER Heart failure MOTHER Valvular heart disease Psychosocial History Where Do You Live? Home Services at Home: Nursing Smoking Status: Never Smoked ETOH Use: denies use Illicit Drug Use: denies illicit drug use ECHO Results (as available) Report: 1. Normal EF of 60%. 2. Moderate left ventricular hypertrophy. 3. Moderate left atrial enlargement. 4. Mild mitral regurgitation. 5. Moderate tricuspid regurgitation. 6. Mild aortic sclerosis with mild aortic regurgitation. 7. Mild pulmonic regurgitation. 8. Moderate to severe pulmonary hypertension. Exam & Diagnostic Data Vital Signs and I&O Vital Signs Date Time Temp Pulse Resp B/P B/P Pulse O2 O2 Flow FiO2 Mean Ox Delivery Rate 02/08 1429 97.4 64 18 134/86 97 Room Air 02/08 0823 172 148/78 02/08 0701 98.0 55 20 196/87 98 Room Air 02/08 0550 66 198/86 02/08 0048 Room Air 02/07 2359 98.0 68 18 198/82 02/07 2356 68 18 198/82 98 Room Air 02/07 2200 78 18 179/723 99 Room Air 02/074 88 177/93 02/07 2114 88 177/93 02/07 2049 98.0 72 20 199/83 99 Room Air 02/07 1917 61 18 173/97 100 Room Air 02/07 1846 213/93 02/07 1831 64 18 213/93 96 Room Air 02/07 1658 233/106 02/07 1606 98.9 76 20 233/100 96 Room Air Intake & Output 02/08 1600 02/08 0800 02/08 0000 02/07 1600 02/07 0802/07 0000 Intake Total 650 300 Output Total 100 Balance 650 300 -100 Intake, Oral 650 300 Number 1 Bowel Movements Output, Urine 100 Patient 199 lb 200 lb Weight Weight Bed scale Measurement Method Physical Exam: Overweight elderly female in no acute distress. Vital signs: See above. HEENT: Normocephalic, atraumatic, EOMI, slightly dry mucous membranes. Neck: No JVD, bilateral carotid bruits vs transmitted systolic murmur. Lungs: Decreased breath sounds otherwise clear. Heart: S1, S2 (regular) with soft (grade 1-2/6) systolic murmur. Abdomen: Soft, nontender, positive bowel sounds. Extremities: 1-2+ bilateral lower extremity edema. Labs/Rayshawn Results: Laboratory Tests 02/08 02/08 1345 0609 Chemistry Sodium (137 - 145 mmol/L) 142 141 Potassium (3.5 - 5.1 mmol/L) 3.9 3.0 L Chloride (98 - 107 mmol/L) 96 L 97 L Carbon Dioxide (22 - 30 mmol/L) 29 29 Anion Gap (5 - 16) 18 H 16 BUN (7 - 17 mg/dL) 98 H 98 H Creatinine (0.5 - 1.0 mg/dL) 4.0 H 3.8 H Estimated GFR (>60 ml/min) 11 L 12 L BUN/Creatinine Ratio (7 - 25 %) 24.5 25.8 H Hemoglobin A1c (4.2 - 5.8 %) 6.4 H Magnesium (1.6 - 2.3 mg/dL) 2.2 2.2 Triglycerides (<150 mg/dL) 348 H Cholesterol (<200 MG/DL) 256 H LDL Cholesterol, Calc (65 - 129 mg/dL) 149 H HDL Cholesterol (40 - 60 mg/dL) 41 Cholesterol/HDL Ratio (0.00 - 4.23 %) 6.2 H Coagulation PT (9.4 - 12.5 SEC) 21.2 H 21.3 H INR (0.90 - 1.19) 1.93 H 1.94 H APTT (25 - 37 SEC) 35 Hematology CBC w Diff NO MAN DIFF REQ NO MAN DIFF REQ WBC (4.8 - 10.8 /CUMM) 10.9 H 10.3 RBC (4.20 - 5.40 /CUMM) 3.82 L 3.65 L Hgb (12.0 - 16.0 G/DL) 10.9 L 10.5 L Hct (37 - 47 %) 32.4 L 30.8 L MCV (81.0 - 99.0 FL) 84.8 84.4 MCH (27.0 - 31.0 PG) 28.6 28.7 MCHC (33.0 - 37.0 G/DL) 33.7 34.0 RDW (11.5 - 14.5 %) 14.6 H 14.9 H Plt Count (130 - 400 /CUMM) 250 214 MPV (7.4 - 10.4 FL) 8.2 9.4 Gran % (42.2 - 75.2 %) 71.3 64.0 Lymphocytes % (20.5 - 51.1 %) 15.5 L 21.5 Monocytes % (1.7 - 9.3 %) 9.2 9.3 Eosinophils % (0 - 5 %) 3.2 4.5 Basophils % (0.0 - 2.0 %) 0.8 0.7 Absolute Granulocytes (1.4 - 6.5 /CUMM) 7.8 H 6.6 H Absolute Lymphocytes (1.2 - 3.4 /CUMM) 1.7 2.2 Absolute Monocytes (0.10 - 0.60 /CUMM) 1.0 H 1.0 H Absolute Eosinophils (0.0 - 0.7 /CUMM) 0.3 0.5 Absolute Basophils (0.0 - 0.2 /CUMM) 0.1 0.1 02/07 02/07 1655 1648 Chemistry Sodium (137 - 145 mmol/L) 139 Potassium (3.5 - 5.1 mmol/L) 3.5 Chloride (98 - 107 mmol/L) 93 L Carbon Dioxide (22 - 30 mmol/L) 29 Anion Gap (5 - 16) 17 H BUN (7 - 17 mg/dL) 102 *H Creatinine (0.5 - 1.0 mg/dL) 4.0 H Estimated GFR (>60 ml/min) 11 L BUN/Creatinine Ratio (7 - 25 %) 25.5 H Glucose (65 - 99 mg/dL) 168 H Calcium (8.4 - 10.2 mg/dL) 9.8 Total Bilirubin (0.2 - 1.3 mg/dL) 0.7 AST (14 - 36 U/L) 39 H ALT (9 - 52 U/L) 32 Alkaline Phosphatase (<127 U/L) 507 H Troponin I (< 0.11 ng/ml) 0.07 Total Protein (6.3 - 8.2 g/dL) 7.8 Albumin (3.5 - 5.0 g/dL) 4.4 Globulin (1.9 - 4.2 gm/dL) 3.4 Albumin/Globulin Ratio (1.1 - 2.2 %) 1.3 Hematology CBC w Diff NO MAN DIFF REQ WBC (4.8 - 10.8 /CUMM) 11.2 H RBC (4.20 - 5.40 /CUMM) 4.02 L Hgb (12.0 - 16.0 G/DL) 11.4 L Hct (37 - 47 %) 33.7 L MCV (81.0 - 99.0 FL) 83.8 MCH (27.0 - 31.0 PG) 28.3 MCHC (33.0 - 37.0 G/DL) 33.8 RDW (11.5 - 14.5 %) 15.3 H Plt Count (130 - 400 /CUMM) 223 MPV (7.4 - 10.4 FL) 9.0 Gran % (42.2 - 75.2 %) 71.9 Lymphocytes % (20.5 - 51.1 %) 16.1 L Monocytes % (1.7 - 9.3 %) 8.6 Eosinophils % (0 - 5 %) 2.9 Basophils % (0.0 - 2.0 %) 0.5 Absolute Granulocytes (1.4 - 6.5 /CUMM) 8.0 H Absolute Lymphocytes (1.2 - 3.4 /CUMM) 1.8 Absolute Monocytes (0.10 - 0.60 /CUMM) 1.0 H Absolute Eosinophils (0.0 - 0.7 /CUMM) 0.3 Absolute Basophils (0.0 - 0.2 /CUMM) 0.1 Toxicology Urine Opiates Screen (>2000 NG/ML) < 100 Methadone Screen (>300 NG/ML) 42 Barbiturate Screen (>200 NG/ML) < 60 Ur Phencyclidine Scrn (>25 NG/ML) < 6.00 Amphetamines Screen (>1000 NG/ML) < 100 U Benzodiazepines Scrn (>200 NG/ML) < 85 Urine Cocaine Screen (>300 NG/ML) < 50 Urine Cannabis Screen (>50 NG/ML) < 5.00 Urines Urinalysis LIGHT H Urine Color (YEL,AMB,STR) YEL Urine Clarity (CLEAR) HAZY H Urine pH (5.0 - 8.0) 6.0 Ur Specific [place] (1.001 - 1.035) 1.020 Urine Protein (NEG,<30 MG/DL) 100 H Urine Ketones (NEG) NEG Urine Nitrite (NEG) NEG Urine Bilirubin (NEG) NEG Urine Urobilinogen (0.1 - 1.0 EU/dl) 0.2 Ur Leukocyte Esterase (NEG) SMALL H Ur Microscopic SEDIMENT EXAMINED Urine RBC (0 - 5 /HPF) 5-10 H Urine WBC (0 - 2 /HPF) 5-10 H Ur Epithelial Cells (NONE,FEW) MANY H Urine Bacteria (NEG/NONE) MOD H Hyaline Casts (0/LPF) RARE H Granular Casts (NONE /LPF) RARE H Urine Mucus (FEW,NONE) RARE Urine Hemoglobin (NEG) MOD H Urine Glucose (N MG/DL) 100 H Diagnostic Data EKG Results 02/07/2018: Sinus rhythm, atrial premature contraction, left anterior fascicular block, and late precordial transition. CXR Results 02/07/2018: 1. No acute pulmonary process. 2. Stable enlargement of the cardiac silhouette. Other Results Carotid ultrasound 02/08/2018: 1. RIGHT: Minimal, nonhemodynamically significant stenosis of the proximal right internal carotid artery corresponding to a 0-49% stenosis by velocity criteria. 2. LEFT: Minimal, nonhemodynamically significant stenosis of the proximal left internal carotid artery corres ponding to a 0-49% stenosis by velocity criteria. CT head 02/08/2018: 1. There are no acute bleeds or definite territorial infarcts. 2. There is diffuse volume loss. There is extensive chronic microvascular ischemic disease and lacunar infarcts. A focus of more acute ischemia cannot be excluded on the basis of this study. 3. This critical result was discussed with Julita Robledo by telephone on 2017 at 2:05 PM and it was ascertained that the content and urgency of the report was understood at the time of direct communication. Renal ultrasound 02/08/2018: 1. Mild bilateral renal cortical atrophy. 2. Atherosclerotic calcification of renal arteries. 3. The proximal right renal artery could not be visualized. Within the visualized renal arteries, there was no Doppler imaging evidence of hemodynamically significant stenosis. Head CT 02/07/2018: 1. No acute intracranial abnormality. 2. There is global cerebral volume loss and there is moderate chronic microangiopathy. There is a chronic infarct involving the left precentral gyrus. Chronic lacunar infarcts within the deep benz nuclei bilaterally. Assessment/Plan Assessment/Plan [id number] w/ hx of gout, HLD, HTN, DM, CKD s/p RUE AV fistula w/o use necessity , ch anemia on an RITO, & PAF s/p electrical CV following CARI ~2015 w/ recurrence & successful antiarrhythmic Rx w/ chem CV ~2017 w/ several adms ( 08/23-09/01/2017; 09/09-09/19/2017; 10/05-10/17/2017) for AF w/ RVR rates & acute on chronic diastolic HF (HFpEF) who presented 02/07/2018 a.m. from her PCP 's office w/ AMS (confusion), fatigue, & hypertensive emergency w/ TIA (233/100 mmHg) after not taking her hypertensive meds at home w/ improved clinical status and VSs after IV hydralazine/IV metoprolol who had a run of atrial flutter w/ 2: 1 block earlier and subsequent to that had 2 more TIAs for which "stroke alert" called who now is w/o complaints, is in NSR, & has acceptable VSs. Recommendations: * Continue on telemetry, follow-up troponins, repeat ECG. * Neurology consultation * Continue present antihypertensive regimen of diltiazem ER 300 mg daily, metoprolol 37.5 mg twice daily torsemide 60 mg daily, and hydralazine 50 mg twice daily. * Continue present diltiazem and metoprolol to control the ventricular response rates to her atrial fibrillation. Although she had a "burst" of atrial flutter with 2: 1 block this a.m., her heart rate is presently around 60 bpm. Would not want this to be any slower. * If she has further episodes of atrial fibrillation/atrial flutter with rapid ventricular response rates, she would be a candidate for a permanent pacemaker to protect her against bradydysrhythmias so that we can control the tachyarrhythmias. * Continue anticoagulation for paroxysmal atrial fibrillation/atrial flutter note mildly subtherapeutic INR 1.93. Consider IV heparin or enoxaparin until INR therapeutic. * Aspirin added to her regimen. * Dyslipidemia noted with an appropriate increase in statin therapy. * Follow-up on nephrology recommendations. * DVT prophylaxis being addressed. Further recommendations will follow, Thank you. Consult Acknowledgment - Thank you for your consult request.
--- NOTE | 2018-02-08 16:26 | ULTRASOUND REPORT ---
EXAMINATION: DUPLEX BILATERAL CAROTID ULTRASOUND CLINICAL INFORMATION: This is a 73-year-old female with a history of TIA. Carotid artery disease. COMPARISON: None. TECHNIQUE: Real-time ultrasound and Doppler techniques (integrating B-mode 2D vascular images, Doppler spectral analysis and color flow Doppler imaging) were utilized to interrogate the extracranial carotid and vertebral arteries bilaterally. The degree of stenosis determined by criteria similar to NASCET. FINDINGS: Right side: 1. Moderate amount of heterogeneous plaque is seen in the ECA/ICA region. 2. The common carotid artery velocity is 65 cm/s. 3. The internal carotid artery velocities are 54 cm/s systolic and 11 cm/s diastolic. 4. The external carotid artery was not visible. I cannot confirm whether it is occluded or patent. Left side: 1. Moderate amount of heterogeneous plaque is seen in the ECA/ICA region. 2. The common carotid artery velocity is 83 cm/s. 3. The internal carotid artery velocities are 68 cm/s systolic and 12 cm/s diastolic. 4. The external carotid artery velocity is 226 cm/s. There is a mild hemodynamically significant stenosis within the external carotid artery. ADDITIONAL FINDINGS: 1. The vertebral arteries show antegrade flow. 2. The brachial artery pressures are symmetric. IMPRESSION: 1. RIGHT: Minimal, nonhemodynamically significant stenosis of the proximal right internal carotid artery corresponding to a 0-49% stenosis by velocity criteria. 2. LEFT: Minimal, nonhemodynamically significant stenosis of the proximal left internal carotid artery corresponding to a 0-49% stenosis by velocity criteria.
[2018-02-08 18:00] VITALS: BP 160/64
[2018-02-08 20:45] VITALS: BP 166/60
[2018-02-08 22:52] VITALS: BP 150/60
[2018-02-09] VITALS (7 sets, daily range): BP systolic 125–164; BP diastolic 65–80
--- NOTE | 2018-02-09 07:17 | PN- Housestaff ---
Cristhian BARBOUR,Lydia 02/09/18 0717: Subjective Follow-up For: TIA Hypertensive encephalopathy History of CKD Tele-Events Since Last Visit: Sinus bradycardia, 54, 0.1, PACs, PVC Subjective: The patient was seen and examined, she denies any episodes of weakness or numbness or slurred speech overnight, vital signs showed blood pressure 164/74, heart rate was in the 50s this morning Review of Systems Constitutional: Reports: see HPI. Objective Last 24 Hrs of Vital Signs/I&O Vital Signs Date Time Temp Pulse Resp B/P B/P Pulse O2 O2 Flow FiO2 Mean Ox Delivery Rate 02/09 1414 98.3 63 20 158/70 97 Room Air 02/09 0849 97.5 82 20 164/70 98 Room Air 02/09 0726 61 164/74 02/09 0724 61 164/74 02/09 0653 98.0 61 20 164/74 97 Room Air 02/09 0505 98.1 94 18 163/71 95 Room Air 02/09 0300 97.8 63 20 125/65 97 Room Air 02/09 0106 98.6 63 20 162/69 97 Room Air 02/09 0000 Room Air 02/08 2312 54 150/60 02/08 2311 54 150/60 02/08 2252 98.8 61 20 150/60 92 Room Air 02/08 2045 98.2 57 20 166/60 99 Room Air 02/08 1800 98.6 59 20 160/64 100 Room Air 02/08 1607 98.9 59 22 141/63 98 Room Air 02/08 1600 Room Air 02/08 1429 97.4 64 18 134/86 97 Room Air Intake & Output 02/09 1600 02/09 0800 02/09 0000 Intake Total 800 240 720 Output Total 625 400 550 Balance 175 -160 170 Intake, Oral 800 240 720 Number 1 0 Bowel Movements Output, Urine 625 400 550 Patient 200 lb Weight Weight Bed scale Measurement Method Physical Exam General Appearance: Alert, Oriented X3, Cooperative, No Acute Distress HEENT: Atraumatic, PERRLA, EOMI, Mucous Membr. moist/pink Lungs: Clear to Auscultation Abdomen: Normal Bowel Sounds, Soft, No Tenderness Neurological: Normal Speech, Strength at 5/5 X4 Ext, Normal Tone, Sensation Intact, Cranial Nerves 3-12 NL Extremities: No Clubbing, No Cyanosis, No Edema Assessment/Plan Assessment: 73 YO F, obese, former smoker with PMH of Awaqas on Coumadin, HFpEF, chronic hypoxemic respiratory failure on home oxygen, DM, stage IV CKD, and moderate to severe pulmonary hypertension, gout, chronic anemia and secondary hyperaparthroidism was referred from primary care physician's office with chief complaint of elevated blood pressure, altered mental status and fatigue. Acute ischemic stroke: On admission the patient blood pressure was 230/100, patient complained of episodes of confusion, today patient had an episode of increasing confusion, on examination shows found to have left hemineglect, otherwise neurological exam was normal, CT had ruled out acute hemorrhage MRI showed multiple small acute infarcts in the right MCA with no hemorrhage or mass, old chronic infarct in the deep cerebral white matter and a chronic lacunar infarct in by lateral basal ganglia and thalamus, small vessel disease neurologist was informant and she recommended to lower her blood pressure gradually not more than 25% drop in first 24 hours. Doppler ultrasound showed nonsignificant stenosis of the carotids INR is subtherapeutic, will start IV heparin drip, Will dose Coumadin 7.5 mg today -Hydralazine 50 mg twice daily to be given only if blood pressure is above 170/ 90 -Renal artery Doppler study excluded renal artery stenosis -urine toxicology was negative -Neuro checks Start aspirin initial dose of 325 once to be followed by 81 mg daily Start atorvastatin 40 mg daily -Neurology consult appreciated History of chronic kidney injury: -Patient has stage IV kidney disease and she is on diuretics. -Continue sevelamer torsemide is held -Continue iron supplementation -Avoid nephrotoxic medications -Input and output -BEP to monitor her BUN and creatinine level -Nephrology recommendation appreciated History of Margaret duffy on anticoagulation: -Continue Coumadin, INR is subtherapeutic, will give 7.5 mg today -We will check INR and dose Coumadin accordingly -Continue diltiazem Cardiology consult appreciated History of diabetes: -Accu-Cheks -Insulin NovoLog according to sliding scale History of hyperlipidemia: Start atorvastatin 40 mg daily History of secondary hyperparathyroidism: -Continue calcitriol DVT prophylaxis: Mechanical and patient is already on Coumadin CODE STATUS: Full code Problem List: 1. Chronic kidney disease (CKD) 2. Acute ischemic stroke Pain Ratin Pain Location: N/A Pain Goal: Remain pain free Pain Plan: Pathway Tomorrow's Labs & Rationales: CBC BEP INR Anh Cook 02/09/18 1110: Attending MD Review Statement Attending Statement Attending MD Statement: examined this patient, discuss w/resident/PA/COMMERCIAL LOAN CLOSER, agreed w/resident/PA/COMMERCIAL LOAN CLOSER, discussed with family, reviewed EMR data (avail), discussed with nursing, discussed with case mgmt, reviewed images, amended to note Attending Assessment/Plan: 73 yr old WF w mult med problems including DM, HTN, CHF, Afib, & advanced CKD admit for uncontrolled hypertension, AFIB with rvr and fatigue. Patient developed Acute CVA during the hospital stay. Patient seen/examined bedside. No new complaints. INR 1.95 AFIB rate controlled: Patient is on coumadin at home. 7.5 mg dose today. INR 1.95. Cardiology f/u. Continue home dose of b matt + cardizem. TIA ASA/STATIN, bedside swallow, Neurology consulted on phone and recommendations followed, c/w couamdin, MRI brain without gadolinim suggesitve of small CVA. Heparin iv as risk of hemorrhagic conversion is less in small stroke. PT/OT, Hbaic 6.4, Lipid profile. Hypercholestremia c/w statin. CKD stage 5: stable, nephrology on board. hypertension controlled; c/w hydralazine to 50 bid. Monitor bp. diabetes Hbaic 6.4 c/w home regimen gi/dvt prophylaxis full code. Monitor INR , follow cardiololgy, nephrology and neurology recommendations.
[2018-02-09 08:19] LABS: ABSOLUTE BASOPHIL COUNT 0.1 /CUMM (0.0-0.2); ABSOLUTE EOSINOPHIL COUNT 0.5 /CUMM (0.0-0.7); ABSOLUTE GRANULOCYTE CT 5.8 /CUMM (1.4-6.5); ABSOLUTE LYMPH COUNT 1.8 /CUMM (1.2-3.4); ABSOLUTE MONOCYTE COUNT 0.8 /CUMM (0.10-0.60); BASOPHIL % 0.7 % (0.0-2.0); EOSINOPHIL % 5.2 % (0-5); GRANULOCYTE % 64.2 % (42.2-75.2); HEMATOCRIT 28.3 % (37-47); MEAN CORPUSCULAR HGB 29.2 PG (27.0-31.0); MEAN CORPUSCULAR HGB CONC 34.7 G/DL (33.0-37.0); MEAN CORPUSCULAR VOLUME 84.1 FL (81.0-99.0); MEAN PLATELET VOLUME 9.6 FL (7.4-10.4); PLATELET COUNT 206 /CUMM (130-400); RBC DISTRIBUTION WIDTH 14.4 % (11.5-14.5); RED BLOOD CELL CT 3.37 /CUMM (4.20-5.40)
[2018-02-09 08:36] LABS: PT 21.4 SEC (9.4-12.5)
--- NOTE | 2018-02-09 09:36 | PN- Nephrology ---
Assessment/Plan Nephrology Assessment: 1. CKD: stage 5/ESRD due to DM & HTN; Cr rise prob reflects lower BP after accelerated HTN but GFR still near baseline w/o HD indication. Hi risk for contrast induced ATN & would avoid if possible. Would also avoid MR w IV gadolinium given NSF risk but noncontrast MR OK 2. HTN: better control & would not lower further re risk of RN ACCESS hypoperfusion 3. CHF: controlled w diuretics 4. TIA: continue warfarin; further eval per neuro & cardiology Suggestion: 1. K supplement po 2. neuro f/u Subjective Subjective: Events yesterday noted: transient speach difficulty & visual field change Sx spontaneously resolved & now better No uremic sx No sz activity CT w/o new CVA Objective Vital Signs and I&Os Vital Signs Date Time Temp Pulse Resp B/P B/P Pulse O2 O2 Flow FiO2 Mean Ox Delivery Rate 02/09 0849 97.5 82 20 164/70 98 Room Air 02/09 0726 61 164/74 02/09 0724 61 164/74 02/09 0653 98.0 61 20 164/74 97 Room Air 02/09 0505 98.1 94 18 163/71 95 Room Air 02/09 0300 97.8 63 20 125/65 97 Room Air 02/09 0106 98.6 63 20 162/69 97 Room Air 02/09 0000 Room Air 02/08 2312 54 150/60 02/08 2311 54 150/60 02/08 2252 98.8 61 20 150/60 92 Room Air 02/08 2045 98.2 57 20 166/60 99 Room Air 02/08 1800 98.6 59 20 160/64 100 Room Air 02/08 1607 98.9 59 22 141/63 98 Room Air 02/08 1600 Room Air 02/08 1429 97.4 64 18 134/86 97 Room Air Intake & Output 02/09 1600 02/09 0400 02/08 1600 02/08 0400 02/07 1600 02/07 0400 Intake Total 240 720 950 Output Total 400 550 100 Balance -160 170 950 -100 Intake, Oral 240 720 950 Number 0 1 Bowel Movements Output, Urine 400 550 100 Patient 200 lb 199 lb Weight Weight Bed scale Bed scale Measurement Method Physical Exam General Appearance: well developed/nourished, no apparent distress, alert Head: atraumatic, normal appearance Ears, Nose, Throat: normal ENT inspection Neck: normal inspection Respiratory: normal breath sounds, no respiratory distress, quiet respiration, lungs clear Cardiovascular: friction rub (none), regular w premature beats Abdomen: soft, non-tender, no organomegaly Extremities: no edema, + bruit REX AVF Neurologic/Psychiatric: no motor/sensory deficits, awake, alert, no asterixis Skin: intact, normal color Current Medications: Current Medications Sig/Cole Start time Last Medication Dose Route Stop Time Status Admin Acetaminophen 650 MG Q6P PRN 02/07 2330 AC PO Aspirin 81 MG DAILY 02/09 0900 AC 02/09 PO 0725 Aspirin 325 MG ONCE ONE 02/08 1415 DC 02/08 PO 02/08 1416 1421 Atorvastatin Calcium 10 MG QPM 02/08 2100 CAN PO Atorvastatin Calcium 40 MG 1700 02/08 1700 AC 02/08 PO 1803 Calcitriol 0.25 MCG DAILY 02/08 0900 AC 02/09 PO 0725 Diltiazem HCl 300 MG DAILY 02/08 0900 AC 02/09 PO 0726 Ferrous Sulfate 325 MG TID 02/08 0900 AC 02/09 PO 0724 Hydralazine HCl 50 MG BID 02/08 2100 AC PO Hydralazine HCl 25 MG TID 02/07 2326 DC 02/08 PO 0550 Insulin Aspart 0 TIDAC 02/09 1200 AC SC Insulin Aspart 0 TIDAC 02/08 0800 DC 02/09 SC 0723 Metoprolol Tartrate 37.5 MG BID 02/08 0900 AC 02/08 PO 0823 Potassium Chloride 40 MEQ QAM 02/08 0900 AC 02/09 PO 0724 Sevelamer Carbonate 1,600 MG WM 02/08 0800 AC 02/09 PO 0723 Torsemide 60 MG QAM 02/08 0900 DC 02/08 PO 0824 Warfarin Sodium 7.5 MG COUMADIN 1700 ONE 02/09 1700 AC PO 02/09 1701 Warfarin Sodium 7.5 MG COUMADIN 1700 ONE 02/08 1700 DC 02/08 PO 02/08 1701 1803 Results Pertinent Lab Results: Laboratory Tests 02/09 02/08 0610 1345 Chemistry Sodium (137 - 145 mmol/L) 140 142 Potassium (3.5 - 5.1 mmol/L) 3.3 L 3.9 Chloride (98 - 107 mmol/L) 97 L 96 L Carbon Dioxide (22 - 30 mmol/L) 31 H 29 Anion Gap (5 - 16) 13 18 H BUN (7 - 17 mg/dL) 105 *H 98 H Creatinine (0.5 - 1.0 mg/dL) 4.4 H 4.0 H Estimated GFR (>60 ml/min) 10 L 11 L BUN/Creatinine Ratio (7 - 25 %) 23.9 24.5 Hemoglobin A1c (4.2 - 5.8 %) 6.4 H Magnesium (1.6 - 2.3 mg/dL) 2.2 Triglycerides (<150 mg/dL) 348 H Cholesterol (<200 MG/DL) 256 H LDL Cholesterol, Calc (65 - 129 mg/dL) 149 H HDL Cholesterol (40 - 60 mg/dL) 41 Cholesterol/HDL Ratio (0.00 - 4.23 %) 6.2 H Coagulation PT (9.4 - 12.5 SEC) 21.4 H 21.2 H INR (0.90 - 1.19) 1.95 H 1.93 H APTT (25 - 37 SEC) 35 Hematology CBC w Diff NO MAN DIFF REQ NO MAN DIFF REQ WBC (4.8 - 10.8 /CUMM) 9.0 10.9 H RBC (4.20 - 5.40 /CUMM) 3.37 L 3.82 L Hgb (12.0 - 16.0 G/DL) 9.8 L 10.9 L Hct (37 - 47 %) 28.3 L 32.4 L MCV (81.0 - 99.0 FL) 84.1 84.8 MCH (27.0 - 31.0 PG) 29.2 28.6 MCHC (33.0 - 37.0 G/DL) 34.7 33.7 RDW (11.5 - 14.5 %) 14.4 14.6 H Plt Count (130 - 400 /CUMM) 206 250 MPV (7.4 - 10.4 FL) 9.6 8.2 Gran % (42.2 - 75.2 %) 64.2 71.3 Lymphocytes % (20.5 - 51.1 %) 20.4 L 15.5 L Monocytes % (1.7 - 9.3 %) 9.5 H 9.2 Eosinophils % (0 - 5 %) 5.2 H 3.2 Basophils % (0.0 - 2.0 %) 0.7 0.8 Absolute Granulocytes (1.4 - 6.5 /CUMM) 5.8 7.8 H Absolute Lymphocytes (1.2 - 3.4 /CUMM) 1.8 1.7 Absolute Monocytes (0.10 - 0.60 /CUMM) 0.8 H 1.0 H Absolute Eosinophils (0.0 - 0.7 /CUMM) 0.5 0.3 Absolute Basophils (0.0 - 0.2 /CUMM) 0.1 0.1 02/08 02/07 0609 1655 Chemistry Sodium (137 - 145 mmol/L) 141 Potassium (3.5 - 5.1 mmol/L) 3.0 L Chloride (98 - 107 mmol/L) 97 L Carbon Dioxide (22 - 30 mmol/L) 29 Anion Gap (5 - 16) 16 BUN (7 - 17 mg/dL) 98 H Creatinine (0.5 - 1.0 mg/dL) 3.8 H Estimated GFR (>60 ml/min) 12 L BUN/Creatinine Ratio (7 - 25 %) 25.8 H Magnesium (1.6 - 2.3 mg/dL) 2.2 Coagulation PT (9.4 - 12.5 SEC) 21.3 H INR (0.90 - 1.19) 1.94 H Hematology CBC w Diff NO MAN DIFF REQ WBC (4.8 - 10.8 /CUMM) 10.3 RBC (4.20 - 5.40 /CUMM) 3.65 L Hgb (12.0 - 16.0 G/DL) 10.5 L Hct (37 - 47 %) 30.8 L MCV (81.0 - 99.0 FL) 84.4 MCH (27.0 - 31.0 PG) 28.7 MCHC (33.0 - 37.0 G/DL) 34.0 RDW (11.5 - 14.5 %) 14.9 H Plt Count (130 - 400 /CUMM) 214 MPV (7.4 - 10.4 FL) 9.4 Gran % (42.2 - 75.2 %) 64.0 Lymphocytes % (20.5 - 51.1 %) 21.5 Monocytes % (1.7 - 9.3 %) 9.3 Eosinophils % (0 - 5 %) 4.5 Basophils % (0.0 - 2.0 %) 0.7 Absolute Granulocytes (1.4 - 6.5 /CUMM) 6.6 H Absolute Lymphocytes (1.2 - 3.4 /CUMM) 2.2 Absolute Monocytes (0.10 - 0.60 /CUMM) 1.0 H Absolute Eosinophils (0.0 - 0.7 /CUMM) 0.5 Absolute Basophils (0.0 - 0.2 /CUMM) 0.1 Toxicology Urine Opiates Screen (>2000 NG/ML) < 100 Methadone Screen (>300 NG/ML) 42 Barbiturate Screen (>200 NG/ML) < 60 Ur Phencyclidine Scrn (>25 NG/ML) < 6.00 Amphetamines Screen (>1000 NG/ML) < 100 U Benzodiazepines Scrn (>200 NG/ML) < 85 Urine Cocaine Screen (>300 NG/ML) < 50 Urine Cannabis Screen (>50 NG/ML) < 5.00 Urines Urinalysis LIGHT H Urine Color (YEL,AMB,STR) YEL Urine Clarity (CLEAR) HAZY H Urine pH (5.0 - 8.0) 6.0 Ur Specific Nicholls (1.001 - 1.035) 1.020 Urine Protein (NEG,<30 MG/DL) 100 H Urine Ketones (NEG) NEG Urine Nitrite (NEG) NEG Urine Bilirubin (NEG) NEG Urine Urobilinogen (0.1 - 1.0 EU/dl) 0.2 Ur Leukocyte Esterase (NEG) SMALL H Ur Microscopic SEDIMENT EXAMINED Urine RBC (0 - 5 /HPF) 5-10 H Urine WBC (0 - 2 /HPF) 5-10 H Ur Epithelial Cells (NONE,FEW) MANY H Urine Bacteria (NEG/NONE) MOD H Hyaline Casts (0/LPF) RARE H Granular Casts (NONE /LPF) RARE H Urine Mucus (FEW,NONE) RARE Urine Hemoglobin (NEG) MOD H Urine Glucose (N MG/DL) 100 H 02/07 1648 Chemistry Sodium (137 - 145 mmol/L) 139 Potassium (3.5 - 5.1 mmol/L) 3.5 Chloride (98 - 107 mmol/L) 93 L Carbon Dioxide (22 - 30 mmol/L) 29 Anion Gap (5 - 16) 17 H BUN (7 - 17 mg/dL) 102 *H Creatinine (0.5 - 1.0 mg/dL) 4.0 H Estimated GFR (>60 ml/min) 11 L BUN/Creatinine Ratio (7 - 25 %) 25.5 H Glucose (65 - 99 mg/dL) 168 H Calcium (8.4 - 10.2 mg/dL) 9.8 Total Bilirubin (0.2 - 1.3 mg/dL) 0.7 AST (14 - 36 U/L) 39 H ALT (9 - 52 U/L) 32 Alkaline Phosphatase (<127 U/L) 507 H Troponin I (< 0.11 ng/ml) 0.07 Total Protein (6.3 - 8.2 g/dL) 7.8 Albumin (3.5 - 5.0 g/dL) 4.4 Globulin (1.9 - 4.2 gm/dL) 3.4 Albumin/Globulin Ratio (1.1 - 2.2 %) 1.3 Hematology CBC w Diff NO MAN DIFF REQ WBC (4.8 - 10.8 /CUMM) 11.2 H RBC (4.20 - 5.40 /CUMM) 4.02 L Hgb (12.0 - 16.0 G/DL) 11.4 L Hct (37 - 47 %) 33.7 L MCV (81.0 - 99.0 FL) 83.8 MCH (27.0 - 31.0 PG) 28.3 MCHC (33.0 - 37.0 G/DL) 33.8 RDW (11.5 - 14.5 %) 15.3 H Plt Count (130 - 400 /CUMM) 223 MPV (7.4 - 10.4 FL) 9.0 Gran % (42.2 - 75.2 %) 71.9 Lymphocytes % (20.5 - 51.1 %) 16.1 L Monocytes % (1.7 - 9.3 %) 8.6 Eosinophils % (0 - 5 %) 2.9 Basophils % (0.0 - 2.0 %) 0.5 Absolute Granulocytes (1.4 - 6.5 /CUMM) 8.0 H Absolute Lymphocytes (1.2 - 3.4 /CUMM) 1.8 Absolute Monocytes (0.10 - 0.60 /CUMM) 1.0 H Absolute Eosinophils (0.0 - 0.7 /CUMM) 0.3 Absolute Basophils (0.0 - 0.2 /CUMM) 0.1 Imaging/Other Studies: CT: 1. There are no acute bleeds or definite territorial infarcts. 2. There is diffuse volume loss. There is extensive chronic microvascular ischemic disease and lacunar infarcts. A focus of more acute ischemia cannot be excluded on the basis of this study. Carotid Doppler: IMPRESSION: 1. RIGHT: Minimal, nonhemodynamically significant stenosis of the proximal right internal carotid artery corresponding to a 0-49% stenosis by velocity criteria. 2. LEFT: Minimal, nonhemodynamically significant stenosis of the proximal left internal carotid artery corresponding to a 0-49% stenosis by velocity criteria Renal US: RIGHT KIDNEY: 11.2 x 4.6 x 5.4 cm (SAG x AP x TRV). Diffuse, mild atrophy of the renal cortex. The renal cortex has normal echotexture. No nephrolithiasis or hydronephrosis. 0.9 cm simple cortical cyst in the lateral interpolar region. Renal vascular calcifications are seen. LEFT KIDNEY: 10.7 x 4.3 x 5.7 cm (SAG x AP x TRV). Diffuse, mild atrophy of the renal cortex. The cortex has normal echotexture. No focal parenchymal lesion, nephrolithiasis or hydronephrosis. Renal vascular calcifications are seen. CXR: Symmetric lung inflation. There is no focal consolidation, pleural effusion, or pneumothorax. Cardiac silhouette is enlarged and unchanged. There are no acute osseous findings. IMPRESSION: No acute pulmonary process. Stable enlargement of the cardiac silhouette.
--- NOTE | 2018-02-09 11:50 | MRI REPORT ---
EXAMINATION: MR BRAIN WITHOUT CONTRAST CLINICAL INFORMATION: Weakness. Stroke alert yesterday. COMPARISON: Head CT 02/08/2018. TECHNIQUE: Multiplanar, multisequence imaging of the brain was performed without intravenous contrast. \H\ \N\FINDINGS: There are multiple small and punctate acute infarcts within the right MCA territory involving the deep frontoparietal and temporal white matter in addition to the right ala of the corpus callosum. No large confluent area of infarcted tissue is seen. There is no hemorrhagic conversion. There is mild associated cytotoxic edema about these areas of infarcts no significant mass effect. No mass is seen. Multiple chronic infarcts are demonstrated in the bilateral hood radiata and centrum semiovale in addition to chronic lacunar infarcts within the bilateral basal ganglia and thalami. There is moderate small vessel ischemic change in the bilateral cerebral white matter and central [place]. The ventricles and sulci are normal in size and configuration allowing for mild diffuse brain parenchymal volume loss. There is no evidence of hydrocephalus. The major arterial flow voids are preserved at the skull base. The extracranial structures appear normal. IMPRESSION: - Multiple small acute infarcts within the right MCA territory (which may be partly in the deep internal border zone) involving the frontal parietal and temporal white matter and posterior ala of the corpus callosum. No hemorrhage or mass effect. - Old chronic infarcts in the deep cerebral white matter as well as chronic lacunar infarcts in the bilateral basal ganglia and thalami. - Moderate small vessel ischemic changes in the cerebral white matter.
--- NOTE | 2018-02-09 12:27 | Cons- Neurology ---
General Information and HPI Consulting Request Date of Consult: 02/09/18 Requested By: Joey BARBOUR,Anh Reason for Consult: Hypertensive urgency with transient visual disturbance and confusion Source of Information: patient, old records Exam Limitations: no limitations History of Present Illness: 73-year-old woman with chronic kidney disease stage IV as well as atrial fibrillation apparently developed markedly hypertension after a medication dose was lowered. She presented to the emergency room the night before last with BP 233/106 and transient visual disturbances. Yesterday on the a rapid response was called when she was found to have a left taylor-neglect, CT scan was done and negative, aspirin and a statin ordered after phone contact with the on- call neurologist. She reports several episodes even preceding her admission but finds them difficult to describe. None have occurred yet today. No associated headache, chest pain or palpitations. Allergies/Medications Allergies: Coded Allergies: sitagliptin (From [employer]) (Severe, THROAT CLOSURE 02/05/17) Home Med List: Atorvastatin Calcium 10 MG TABLET 1 TAB PO QPM CHOLESTEROL (Reported) Calcitriol 0.25 MCG CAPSULE 1 CAP PO DAILY SUPPLEMENT (Reported) Diltiazem HCl (Cardizem Cd) 300 MG CAP.ER.24H 1 CAP PO DAILY HEART/BP ( Reported) Febuxostat (Uloric) 40 MG TABLET 1 TAB PO DAILY GOUT (Reported) Ferrous Sulfate 325 MG (65 MG IRON) TABLET 1 TAB PO TID Iron storage . Insulin Aspart (Niacinamide) (Fiasp 100 Unit/Ml Flextouch) 100 UNIT/ML (3 ML) INSULN.PEN 0 SC TIDAC blood sugar .Please administer as follow: Metoprolol Tartrate 25 MG TABLET 37.5 MG PO BID [employer] . Potassium Chloride 20 MEQ TAB.ER.PRT 2 TAB PO QAM SUPPLEMENT (Reported) Sevelamer Carbonate (Renvela) 800 MG TABLET 2 TAB PO WM CKD Torsemide 20 MG TABLET 60 MG PO QAM DIURETIC (Reported) Warfarin Sodium (Coumadin) 7.5 MG TABLET 1 TAB PO AD BLOOD THINNER (Reported) Warfarin Sodium (Coumadin) 5 MG TABLET 1 TAB PO AD BLOOD THINNER (Reported) Current Medications: Current Medications Sig/Cole Start time Last Medication Dose Route Stop Time Status Admin Acetaminophen 650 MG Q6P PRN 02/07 2330 AC PO Aspirin 81 MG DAILY 02/09 0900 AC 02/09 PO 0725 Aspirin 325 MG ONCE ONE 02/08 1415 DC 02/08 PO 02/08 1416 1421 Atorvastatin Calcium 10 MG QPM 02/08 2100 CAN PO Atorvastatin Calcium 40 MG 1700 02/08 1700 AC 02/08 PO 1803 Calcitriol 0.25 MCG DAILY 02/08 0900 AC 02/09 PO 0725 Diltiazem HCl 300 MG DAILY 02/08 0900 AC 02/09 PO 0726 Ferrous Sulfate 325 MG TID 02/08 0900 AC 02/09 PO 0724 Hydralazine HCl 50 MG BID 02/08 2100 AC PO Hydralazine HCl 25 MG TID 02/07 2326 DC 02/08 PO 0550 Insulin Aspart 0 TIDAC 02/09 1200 AC SC Insulin Aspart 0 TIDAC 02/08 0800 DC 02/09 SC 0723 Metoprolol Tartrate 37.5 MG BID 02/08 0900 AC 02/08 PO 0823 Potassium Chloride 40 MEQ QAM 02/08 0900 AC 02/09 PO 0724 Sevelamer Carbonate 1,600 MG WM 02/08 0800 AC 02/09 PO 0723 Torsemide 60 MG QAM 02/08 0900 DC 02/08 PO 0824 Warfarin Sodium 7.5 MG COUMADIN 1700 ONE 02/09 1700 AC PO 02/09 1701 Warfarin Sodium 7.5 MG COUMADIN 1700 ONE 02/08 1700 DC 02/08 PO 02/08 1701 1803 Review of Systems Review of Systems: ROS: A complete medical systems review was obtained. No pertinent complaints were found. Past History Travel History Traveled to [place] past 21 day No Medical History Blood Transfusion Hx: Yes Neurological: NONE EENT: NONE Cardiovascular: AFIB (refuses/ not started on antico), aflutter, hypertension Respiratory: NONE Gastrointestinal: NONE Hepatic: NONE Renal: chronic kidney disease, CKD biopsy-proven diabetic/hypertensive nephropathy R.ARM AVF Musculoskeletal: gout Psychiatric: NONE Endocrine: diabetes, obesity, she reports that her diabetes has been referred for roughly 10 years. She denies any retinopathy. secondary hyperparathyroidism Blood Disorders: anemia Cancer(s): NONE [employer]GRAM [employer]MENT[employer] PLANNING/Reproductive: NONE Surgical History Surgical History: 2 YEARS AGO (DR MEEHAN) [place] creation of an aVF exteriorization of an aVF Family History Relations & Conditions If Any: FATHER Heart failure MOTHER Valvular heart disease Psychosocial History Where Do You Live? Home Services at Home: Nursing Smoking Status: Never Smoked ETOH Use: denies use Illicit Drug Use: denies illicit drug use Exam & Diagnostic Data Vital Signs and I&O Vital Signs Date Time Temp Pulse Resp B/P B/P Pulse O2 O2 Flow FiO2 Mean Ox Delivery Rate 02/09 0849 97.5 82 20 164/70 98 Room Air 02/09 0726 61 164/74 02/09 0724 61 164/74 02/09 0653 98.0 61 20 164/74 97 Room Air 02/09 0505 98.1 94 18 163/71 95 Room Air 02/09 0300 97.8 63 20 125/65 97 Room Air 02/09 0106 98.6 63 20 162/69 97 Room Air 02/09 0000 Room Air 02/08 2312 54 150/60 02/08 2311 54 150/60 02/08 2252 98.8 61 20 150/60 92 Room Air 02/08 2045 98.2 57 20 166/60 99 Room Air 02/08 1800 98.6 59 20 160/64 100 Room Air 02/08 1607 98.9 59 22 141/63 98 Room Air 02/08 1600 Room Air 02/08 1429 97.4 64 18 134/86 97 Room Air Intake & Output 02/09 1600 02/09 0800 02/09 0000 Intake Total 240 720 Output Total 400 550 Balance -160 170 Intake, Oral 240 720 Number 0 Bowel Movements Output, Urine 400 550 Patient 200 lb Weight Weight Bed scale Measurement Method Physical Exam: On exam the patient appeared generally well and in no distress. Bilateral soft systolic carotid bruits, no cardiac murmur. No peripheral edema Mental status: Alert, attentive, fully oriented, no language errors, recall and general fund of knowledge seem intact Funduscopic unremarkable Visual kraus reveal a left inferior quadrant extinction on double simultaneous stimulation, Eye movements full without nystagmus, pupils midsize equal round and reactive to light. Facial movement normal bilaterally Facial sensation normal bilaterally Hearing intact bilaterally Uvula elevates midline Tongue protrusion is midline Shoulder shrug symmetric Motor power and tone normal in all 4 extremities Sensation intact to primary modes Tendon reflexes normal and symmetric without pathologic signs Coordination no ataxia Gait [testing deferred] Last 48 Hours of Lab Results: Laboratory Tests 02/09 02/08 0610 1345 Chemistry Sodium (137 - 145 mmol/L) 140 142 Potassium (3.5 - 5.1 mmol/L) 3.3 L 3.9 Chloride (98 - 107 mmol/L) 97 L 96 L Carbon Dioxide (22 - 30 mmol/L) 31 H 29 Anion Gap (5 - 16) 13 18 H BUN (7 - 17 mg/dL) 105 *H 98 H Creatinine (0.5 - 1.0 mg/dL) 4.4 H 4.0 H Estimated GFR (>60 ml/min) 10 L 11 L BUN/Creatinine Ratio (7 - 25 %) 23.9 24.5 Hemoglobin A1c (4.2 - 5.8 %) 6.4 H Magnesium (1.6 - 2.3 mg/dL) 2.2 Triglycerides (<150 mg/dL) 348 H Cholesterol (<200 MG/DL) 256 H LDL Cholesterol, Calc (65 - 129 mg/dL) 149 H HDL Cholesterol (40 - 60 mg/dL) 41 Cholesterol/HDL Ratio (0.00 - 4.23 %) 6.2 H Coagulation PT (9.4 - 12.5 SEC) 21.4 H 21.2 H INR (0.90 - 1.19) 1.95 H 1.93 H APTT (25 - 37 SEC) 35 Hematology CBC w Diff NO MAN DIFF REQ NO MAN DIFF REQ WBC (4.8 - 10.8 /CUMM) 9.0 10.9 H RBC (4.20 - 5.40 /CUMM) 3.37 L 3.82 L Hgb (12.0 - 16.0 G/DL) 9.8 L 10.9 L Hct (37 - 47 %) 28.3 L 32.4 L MCV (81.0 - 99.0 FL) 84.1 84.8 MCH (27.0 - 31.0 PG) 29.2 28.6 MCHC (33.0 - 37.0 G/DL) 34.7 33.7 RDW (11.5 - 14.5 %) 14.4 14.6 H Plt Count (130 - 400 /CUMM) 206 250 MPV (7.4 - 10.4 FL) 9.6 8.2 Gran % (42.2 - 75.2 %) 64.2 71.3 Lymphocytes % (20.5 - 51.1 %) 20.4 L 15.5 L Monocytes % (1.7 - 9.3 %) 9.5 H 9.2 Eosinophils % (0 - 5 %) 5.2 H 3.2 Basophils % (0.0 - 2.0 %) 0.7 0.8 Absolute Granulocytes (1.4 - 6.5 /CUMM) 5.8 7.8 H Absolute Lymphocytes (1.2 - 3.4 /CUMM) 1.8 1.7 Absolute Monocytes (0.10 - 0.60 /CUMM) 0.8 H 1.0 H Absolute Eosinophils (0.0 - 0.7 /CUMM) 0.5 0.3 Absolute Basophils (0.0 - 0.2 /CUMM) 0.1 0.1 02/08 02/07 0609 1655 Chemistry Sodium (137 - 145 mmol/L) 141 Potassium (3.5 - 5.1 mmol/L) 3.0 L Chloride (98 - 107 mmol/L) 97 L Carbon Dioxide (22 - 30 mmol/L) 29 Anion Gap (5 - 16) 16 BUN (7 - 17 mg/dL) 98 H Creatinine (0.5 - 1.0 mg/dL) 3.8 H Estimated GFR (>60 ml/min) 12 L BUN/Creatinine Ratio (7 - 25 %) 25.8 H Magnesium (1.6 - 2.3 mg/dL) 2.2 Coagulation PT (9.4 - 12.5 SEC) 21.3 H INR (0.90 - 1.19) 1.94 H Hematology CBC w Diff NO MAN DIFF REQ WBC (4.8 - 10.8 /CUMM) 10.3 RBC (4.20 - 5.40 /CUMM) 3.65 L Hgb (12.0 - 16.0 G/DL) 10.5 L Hct (37 - 47 %) 30.8 L MCV (81.0 - 99.0 FL) 84.4 MCH (27.0 - 31.0 PG) 28.7 MCHC (33.0 - 37.0 G/DL) 34.0 RDW (11.5 - 14.5 %) 14.9 H Plt Count (130 - 400 /CUMM) 214 MPV (7.4 - 10.4 FL) 9.4 Gran % (42.2 - 75.2 %) 64.0 Lymphocytes % (20.5 - 51.1 %) 21.5 Monocytes % (1.7 - 9.3 %) 9.3 Eosinophils % (0 - 5 %) 4.5 Basophils % (0.0 - 2.0 %) 0.7 Absolute Granulocytes (1.4 - 6.5 /CUMM) 6.6 H Absolute Lymphocytes (1.2 - 3.4 /CUMM) 2.2 Absolute Monocytes (0.10 - 0.60 /CUMM) 1.0 H Absolute Eosinophils (0.0 - 0.7 /CUMM) 0.5 Absolute Basophils (0.0 - 0.2 /CUMM) 0.1 Toxicology Urine Opiates Screen (>2000 NG/ML) < 100 Methadone Screen (>300 NG/ML) 42 Barbiturate Screen (>200 NG/ML) < 60 Ur Phencyclidine Scrn (>25 NG/ML) < 6.00 Amphetamines Screen (>1000 NG/ML) < 100 U Benzodiazepines Scrn (>200 NG/ML) < 85 Urine Cocaine Screen (>300 NG/ML) < 50 Urine Cannabis Screen (>50 NG/ML) < 5.00 Urines Urinalysis LIGHT H Urine Color (YEL,AMB,STR) YEL Urine Clarity (CLEAR) HAZY H Urine pH (5.0 - 8.0) 6.0 Ur Specific [place] (1.001 - 1.035) 1.020 Urine Protein (NEG,<30 MG/DL) 100 H Urine Ketones (NEG) NEG Urine Nitrite (NEG) NEG Urine Bilirubin (NEG) NEG Urine Urobilinogen (0.1 - 1.0 EU/dl) 0.2 Ur Leukocyte Esterase (NEG) SMALL H Ur Microscopic SEDIMENT EXAMINED Urine RBC (0 - 5 /HPF) 5-10 H Urine WBC (0 - 2 /HPF) 5-10 H Ur Epithelial Cells (NONE,FEW) MANY H Urine Bacteria (NEG/NONE) MOD H Hyaline Casts (0/LPF) RARE H Granular Casts (NONE /LPF) RARE H Urine Mucus (FEW,NONE) RARE Urine Hemoglobin (NEG) MOD H Urine Glucose (N MG/DL) 100 H 02/07 1648 Chemistry Sodium (137 - 145 mmol/L) 139 Potassium (3.5 - 5.1 mmol/L) 3.5 Chloride (98 - 107 mmol/L) 93 L Carbon Dioxide (22 - 30 mmol/L) 29 Anion Gap (5 - 16) 17 H BUN (7 - 17 mg/dL) 102 *H Creatinine (0.5 - 1.0 mg/dL) 4.0 H Estimated GFR (>60 ml/min) 11 L BUN/Creatinine Ratio (7 - 25 %) 25.5 H Glucose (65 - 99 mg/dL) 168 H Calcium (8.4 - 10.2 mg/dL) 9.8 Total Bilirubin (0.2 - 1.3 mg/dL) 0.7 AST (14 - 36 U/L) 39 H ALT (9 - 52 U/L) 32 Alkaline Phosphatase (<127 U/L) 507 H Troponin I (< 0.11 ng/ml) 0.07 Total Protein (6.3 - 8.2 g/dL) 7.8 Albumin (3.5 - 5.0 g/dL) 4.4 Globulin (1.9 - 4.2 gm/dL) 3.4 Albumin/Globulin Ratio (1.1 - 2.2 %) 1.3 Hematology CBC w Diff NO MAN DIFF REQ WBC (4.8 - 10.8 /CUMM) 11.2 H RBC (4.20 - 5.40 /CUMM) 4.02 L Hgb (12.0 - 16.0 G/DL) 11.4 L Hct (37 - 47 %) 33.7 L MCV (81.0 - 99.0 FL) 83.8 MCH (27.0 - 31.0 PG) 28.3 MCHC (33.0 - 37.0 G/DL) 33.8 RDW (11.5 - 14.5 %) 15.3 H Plt Count (130 - 400 /CUMM) 223 MPV (7.4 - 10.4 FL) 9.0 Gran % (42.2 - 75.2 %) 71.9 Lymphocytes % (20.5 - 51.1 %) 16.1 L Monocytes % (1.7 - 9.3 %) 8.6 Eosinophils % (0 - 5 %) 2.9 Basophils % (0.0 - 2.0 %) 0.5 Absolute Granulocytes (1.4 - 6.5 /CUMM) 8.0 H Absolute Lymphocytes (1.2 - 3.4 /CUMM) 1.8 Absolute Monocytes (0.10 - 0.60 /CUMM) 1.0 H Absolute Eosinophils (0.0 - 0.7 /CUMM) 0.3 Absolute Basophils (0.0 - 0.2 /CUMM) 0.1 Imaging/Other Studies: CT head: 1. There are no acute bleeds or definite territorial infarcts. 2. There is diffuse volume loss. There is extensive chronic microvascular ischemic disease and lacunar infarcts. A focus of more acute ischemia cannot be excluded on the basis of this study. Carotid Dopplers: 1. RIGHT: Minimal, nonhemodynamically significant stenosis of the proximal right internal carotid artery corresponding to a 0-49% stenosis by velocity criteria. 2. LEFT: Minimal, nonhemodynamically significant stenosis of the proximal left internal carotid artery corresponding to a 0-49% stenosis by velocity criteria. Head MRI: - Multiple small acute infarcts within the right MCA territory (which may be partly in the deep internal border zone) involving the frontal parietal and temporal white matter and posterior ala of the corpus callosum. No hemorrhage or mass effect. - Old chronic infarcts in the deep cerebral white matter as well as chronic lacunar infarcts in the bilateral basal ganglia and thalami. - Moderate small vessel ischemic changes in the cerebral white matter. Assessment/Plan Assessment: Multiple small strokes in the right hemisphere. Unable to determine with certainty if this represents a shower of emboli due to her atrial fibrillation as the INR was borderline low on presentation, or results from the hypertensive urgency. Fortunately clinical deficits are mild with a degree of left visual field extinction and some confusion, mild impairment of left hand control, neglect reported yesterday but not clearly evident on today's exam. Recommendations: Optimize anticoagulation, INR has risen to 1.9, goal would be over 2.0 up to 3.0 No additional diagnostic testing indicated, echocardiogram considered but patient already fully anticoagulated, already known to have atrial fibrillation Gradual control of blood pressure which is currently in the 160 systolic range down to 150's or eventually 140s Speech, occupational and physical therapy consultations Patient can be up out of bed at this time Consult Acknowledgment - Thank you for your consult request.
--- NOTE | 2018-02-09 13:29 | ECHOCARDIOGRAM REPORT ---
GILL CUETO Age: 73 : 1945 Gender: F Exam Date: 02/08/2018 19:21 Exam Location: [address] Ht (in): 69 Wt (lb): 199 BSA: 2.12 BP: 141 / 63 Ordering Physician: Julita Robledo MD Referring Physician: Terrence Aponte MD Technologist: Fernanda Coleman [facility] Room Number: 189-01 Indications: AFIB/FLUTTER Rhythm: Sinus Technical Quality: Fair FINDINGS Left Ventricle Normal size left ventricle. Moderate concentric left ventricular hypertrophy. No obvious regional wall motion abnormalities. Normal left ventricular ejection fraction visually estimated at 60%. Normal left ventricular diastolic filling pattern for age. Right Ventricle Normal right ventricular size and function. Right Atrium Mild right atrial dilatation. Left Atrium Mild left atrial dilatation. Mitral Valve Mild mitral annular calcification. Mitral valve mildly thickened. Mild mitral regurgitation. Aortic Valve Trileaflet aortic valve. Focal thickening of the aortic valve cusps. Very mild aortic stenosis. There is mild aortic regurgitation. Tricuspid Valve Structurally normal tricuspid valve. Mild tricuspid regurgitation. Mild pulmonary hypertension. Right ventricular systolic pressure estimated to be elevated at 44 mmHg. Pulmonic Valve Pulmonic valve not well visualized, grossly normal. Mild pulmonic regurgitation. Pericardium No pericardial effusion. Great Vessels Normal size aortic root. Dilated inferior vena cava. CONCLUSIONS Normal size left ventricle. Moderate concentric left ventricular hypertrophy. Normal left ventricular ejection fraction visually estimated at 60%. Normal left ventricular diastolic filling pattern for age. Normal right ventricular size and function. Mild atrial dilatation. Mild mitral regurgitation. Very mild aortic stenosis. There is mild aortic regurgitation. Mild tricuspid regurgitation. Mild pulmonary hypertension. Mild pulmonic regurgitation. Dilated inferior vena cava. Terrence Aponte M.D. (Electronically Signed) Final Date: 09 February 2018 13:29 MEASUREMENTS (Male / Female) Normal Values 2D ECHO LV Diastolic Diameter PLAX 4.7 cm 4.2 - 5.9 / 3.9 - 5.3 cm LV Systolic Diameter PLAX 2.9 cm 2.1 - 4.0 cm LV Fractional Shortening PLAX 38.3 % 25 - 46 % LV Ejection Fraction 2D Teich 68.5 % IVS Diastolic Thickness 1.5 cm LVPW Diastolic Thickness 1.5 cm LV Relative Wall Thickness 0.6 RV Internal Dim ED PLAX 3.2 cm 1.9 - 3.8 cm LVOT Diameter 2.1 cm Aortic Root Diameter 3.1 cm LA Systolic Diameter LX 4.5 cm 3.0 - 4.0 / 2.7 - 3.8 cm LA Volume 67.0 cm 18 - 58 / 22 - 52 cm Ascending Aorta Diameter 3.3 cm DOPPLER AV Peak Velocity 195.0 cm/s AV Peak Gradient 15.2 mmHg AV Mean Velocity 149.0 cm/s AV Mean Gradient 10.0 mmHg AV Velocity Time Integral 49.9 cm LVOT Peak Velocity 113.0 cm/s LVOT Peak Gradient 5.1 mmHg LVOT Mean Velocity 82.1 cm/s LVOT Mean Gradient 3.0 mmHg LVOT Velocity Time Integral 29.7 cm LVOT Stroke Volume 102.9 cm AV Area Cont Eq vti 2.1 cm AV Area Cont Eq pk 2.0 cm MV Peak Velocity 115.0 cm/s MV Peak Gradient 5.3 mmHg MV Mean Velocity 51.5 cm/s MV Mean Gradient 1.0 mmHg Mitral E Point Velocity 102.0 cm/s MV PHT Velocity 122.0 cm/s MV Deceleration [place] 850.0 cm/s MV Pressure Half Time 43.1 ms MV Area PHT 5.1 cm MV Deceleration Time 229.0 ms TR Peak Velocity 313.0 cm/s TR Peak Gradient 39.2 mmHg Right Atrial Pressure 5.0 mmHg Pulmonary Artery Systolic Pressu 44.2 mmHg Right Ventricular Systolic Press 44.2 mmHg PV Peak Velocity 121.0 cm/s PV Peak Gradient 5.9 mmHg PV Mean Velocity 69.9 cm/s PV Mean Gradient 2.0 mmHg PV Velocity Time Integral 30.9 cm LV E' Lateral Velocity 9.4 cm/s Mitral E to LV E' Lateral Ratio 10.8 LV E' Septal Velocity 3.9 cm/s Mitral E to LV E' Septal Ratio 26.1
--- NOTE | 2018-02-09 14:00 | Discharge Summary ---
Visit Information Visit Dates Admission Date: 02/07/18 Discharge Date: 02/14/18 Hospital Course Course Attending Physician: Anh Cook MD Primary Care Physician: Andrzej BARBOUR,Juan Mak Other Care Providers: Industrial Order Clerk - Dr. Chand Service Bar Cashier - Fadi Neurologist - [facility] Course: Mrs. Yao is 73 year old female with past medical history significant for atrial fibrillation on Coumadin, HfpEF, COPD not on home oxygen, insulin- dependent diabetes mellitus, CKD stage 5/ESRD due to DM & HTN, pulmonary hypertension, right external carotid stenosis, obesity. Patient was sent from primary care office for elevated blood pressure 233/100 on arrival, was confused, denied any chest pain or palpitation, blurry vision or double vision. Patient has hypertensive urgency secondary to improper med reconciliation as she was taking metoprolol once daily instead of twice daily. According to patient, her nurse told her to take metoprolol only once daily and she recently realized that was a mistake. Patient was admitted to telemetry floor for hypertensive emergency and encephalopathy that resolved by time of admission. Home antihypertensive medications were continued, hydralazine was started. Second day of admission patient was found to have sudden onset of altered mental status and neuro exam positive for left visual field negligence, symptoms lasted for 2 minutes. CAT scan head without IV contrast did not reveal any hemorrhage or stroke. MRI head revealed multiple small acute infarcts within the right MCA territory (which may be partly in the deep internal border zone) involving the frontal parietal and temporal white matter and posterior ala of the corpus callosum. No hemorrhage or mass effect. Old chronic infarcts in the deep cerebral white matter as well as chronic lacunar infarcts in the bilateral basal ganglia and thalami. Moderate small vessel ischemic changes in the cerebral white matter. Patient was fully anticoagulated with warfarin for atrial fibrillation. Heparin IV was started for optimal anticoagulation. Neuro and cardio consultations were obtained. Speech therapy, PT and OT consultations. Anticoagulation, high statin therapy. Bilateral carotid Doppler ultrasound negative for any significant hemodynamically stenosis of internal carotid arteries. Echocardiogram revealed normal ejection fraction of 60%, Mild atrial dilatation. Mild mitral regurgitation, Very mild aortic stenosis, There is mild aortic regurgitation, Mild tricuspid regurgitation, Mild pulmonary hypertension, Mild pulmonic regurgitation, Dilated inferior vena cava. Renal Doppler ultrasound was obtained to rule out any renal artery stenosis in setting of chronic kidney disease and persistent/hypertensive emergency, study revealed mild bilateral renal cortical atrophy with atherosclerotic calcification of renal arteries. The proximal right renal artery could not be visualized. Within the visualized renal arteries there is no Doppler imaging evidence of hemodynamically significant stenosis. Nephrology consultation was obtained. Metolazone was discontinued. Blood pressure remained within target level, gradual reduction, eventual target is systolic 140 mmHg. In the telemetry unit the patient was treated for the following problems: 1. TIA/HYPERTENSIVE EMERGENCY 2. CKD STAGE 5 3. ATRIAL FIBRILLATION ON ANTICOAGULATION 4. DIABETES MELLITUS TIA/HYPERTENSIVE EMERGENCY Admission patients blood pressure was 230/100. Throughout the patients course of stay, neuro examinations were consistently done with neurology on board. Initially on examination patient shows found to have left hemineglect, otherwise neurological exam was normal. Patient showed no further signs of neurological deficit and began to improve steadily. CT had ruled out acute hemorrhage. Patient was initially started on Hydralazine 50 mg twice daily to be given only if blood pressure is above 170/90, aspirin initial dose of 325 once to be followed by 81 mg daily and atorvastatin 40 mg daily. Towards the end of her stay, hydralazine was discontinued and the patient is continuing home metoprolol regimen of 37.5mg BID, diltiazem 300mg dailyu, Toresimide 60mg/day. Patient to follow up with cardiology in outpatient. Her blood pressures towards the end of her stay normalized to 122-134 systolic and 66-72 diastolic. CKD STAGE 5/HYPERKALEMIA Patient has a history of stage 5 chronic kidney disease and she is on diuretics. Patient was seen by nephrology during her stay to continue home medications of sevelamer, calcitriol, toresemide and febuxostat. Initially torsemide was discontinued due to TIA. Patient was avoided of any nephrotoxic medications during her stay and input and output was consistently monitered. Patients BEP, BUN and creatinine levels were monitored daily. Patients oral potassium was discontinued during stay when her potassium reached 5.5 on (02/12) with no EKG changes or symptoms. Patient is advised to follow up with nephrology outpatient in terms of continuing oral potassium supplementation. Patient to see Dr. Chang in 2 months (April). ATRIAL FIBRILLATION ON ANTICOAGULATION During the course of the patients stay the patient was monitored in the telemetry for her atrial fibrillation. The patient was on her home Warfarin with INR for a goal of 2-3 during her stay. No additional diagnostic testing as echocardiogram considred but patient was already on anticoagulation and known to have atrial fibrillation. Patients home dose of Diltiazem 300mg/daily was continued during her stay for rate control. Patient was further seen by PT, speech and Occupational therapy consultations. Patient was started on aspirin to be followed by 81 mg daily, atorvastatin 40 mg daily. Patient to continue Coumadin at home and follow INR. DIABETES MELLITUS Patients home insulin regimen was continued during the course of her stay. She received Insulin Novolog accordingly. Patient to follow up with outpatient for proper glucose control. Patient discharged home on [facility] as per case management. Patient transportation was by her daughter on 02/14. Code Status: Full Code DVT Prophylaxis: Mechanical and on Coumadin Allergies: Coded Allergies: sitagliptin (From [employer]) (Severe, THROAT CLOSURE 02/05/17) Significant Procedures: none Pertinent Lab Results: HEAD MRI -Multiple small acute infarcts within the right MCA territory (which may be partly in the deep internal border zone) involving the frontal parietal and temporal white matter and posterior ala of the corpus callosum. No hemorrhage or mass effect. -Old chronic infarcts in the deep cerebral white matter as well as chronic lacunar infarcts in the bilateral basal ganglia and thalami. - Moderate small vessel ischemic changes in the cerebral white matter. HEAD CT 02/08/18 -No acute intracranial abnormality. -There is global cerebral volume loss and there is moderate chronic microangiopathy. There is a chronic infarct involving the left precentral gyrus. Chronic lacunar infarcts within the deep benz nuclei bilaterally. RENAL US 02/08/18 1. Mild bilateral renal cortical atrophy. 2. Atherosclerotic calcification of renal arteries. 3. The proximal right renal artery could not be visualized. Within the visualized renal arteries, there was no Doppler imaging evidence of hemodynamically significant stenosis. Disposition Summary Disposition Principal Diagnosis: Hypertensive emergency Additional Diagnosis: Multiple small strokes in the right hemisphere. Discharge Disposition: home health services Discharge Instructions General Discharge Information Code Status: Full Code Patient's Diet: Heart healthy diet Patient's Activity: As tolerated Follow-Up Instructions/Appts: -Please follow-up with your primary care physician within 1 week after discharge -Please follow-up with machine adjuster Dr. Aponte within 1 week after discharge -Please follow-up with neurologist within 2 weeks after discharge -Please follow-up with maintenance helper within 2 weeks after discharge Medications at Discharge Discharge Medications: Stop taking the following medications: Potassium Chloride (Potassium Chloride) 20 MEQ TAB.ER.PRT ORAL Every Morning Continue taking these medications: Febuxostat (Uloric) 40 MG TABLET 1 Tablet ORAL DAILY Qty = 30 Comments: GIVEN 02/14/18 @ 0815 AM Sevelamer Carbonate (Renvela) 800 MG TABLET 2 Tablet ORAL WITH MEALS Qty = 180 Comments: GIVEN 02/14/18 @ 1215 PM Calcitriol (Calcitriol) 0.25 MCG CAPSULE 1 Capsule ORAL DAILY Qty = 30 Comments: GIVEN 02/14/18 @ 0815 AM Ferrous Sulfate (Ferrous Sulfate) 325 MG (65 MG IRON) TABLET 1 Tablet ORAL THREE TIMES DAILY Qty = 60 Instructions: . Comments: GIVEN 02/14/18 @ 0815 AM Metoprolol Tartrate (Metoprolol Tartrate) 25 MG TABLET 37.5 Milligram ORAL TWICE DAILY Qty = 60 Instructions: . Comments: GIVEN 02/14/18 @ 0815 AM Insulin Aspart (Niacinamide) (Fiasp 100 Unit/Ml Flextouch) 100 UNIT/ML (3 ML) INSULN.PEN 0 Inject into fatty tissue 3 TIMES DAILY BEFORE MEALS Qty = 18 Instructions: .Please administer as follow: Comments: GIVEN 02/14/18 @ 0815 AM PT GIVEN NOVOLOG SLIDING SCALE 80-150 mg/dl: No change 151-200 mg/dl: Plus 1 Unit 201-250 mg/dl: Plus 2 unit 251-300 mg/dl: Plus 3 unit 301-350 mg/dl: Plus 4 unit 351-400 mg/dl: Plus 6 unit more than 400 mg/dl: plus 8 units and call your doctor Torsemide (Torsemide) 20 MG TABLET 60 Milligram ORAL Every Morning Comments: GIVEN 02/14/18 @ 0815 AM Atorvastatin Calcium (Atorvastatin Calcium) 10 MG TABLET 1 Tablet ORAL Every night Comments: GIVEN 02/13/18 @ 530 PM Diltiazem HCl (Cardizem Cd) 300 MG CAP.ER.24H 1 Capsule ORAL DAILY Comments: GIVEN 02/14/18 @ 0815 AM Warfarin Sodium (Coumadin) 7.5 MG TABLET 1 Tablet ORAL As Directed Warfarin Sodium (Coumadin) 5 MG TABLET 1 Tablet ORAL As Directed Comments: GIVEN COUMADIN 02/13/18 @ 530PM Copies To: Andrzej BARBOUR,Juan Mak Attending MD Review Statement Documenting Attending: Anh Cook MD
--- NOTE | 2018-02-09 16:46 | PN- Cardiology ---
Subjective Subjective: Feels improved. Remains anxious about yesterday's neurological episodes. Rhythm appears to be sinus with first-degree AV block and multiple APCs. Objective Vital Signs and I&Os Vital Signs Date Time Temp Pulse Resp B/P B/P Pulse O2 O2 Flow FiO2 Mean Ox Delivery Rate 02/09 1414 98.3 63 20 158/70 97 Room Air 02/09 0849 97.5 82 20 164/70 98 Room Air 02/09 0726 61 164/74 02/09 0724 61 164/74 02/09 0653 98.0 61 20 164/74 97 Room Air 02/09 0505 98.1 94 18 163/71 95 Room Air 02/09 0300 97.8 63 20 125/65 97 Room Air 02/09 0106 98.6 63 20 162/69 97 Room Air 02/09 0000 Room Air 02/08 2312 54 150/60 02/08 2311 54 150/60 02/08 2252 98.8 61 20 150/60 92 Room Air 02/08 2045 98.2 57 20 166/60 99 Room Air 02/08 1800 98.6 59 20 160/64 100 Room Air Intake & Output 02/09 1600 02/09 0800 02/09 0000 02/08 1600 02/08 0800 02/08 0000 Intake Total 800 240 720 650 300 Output Total 625 400 550 100 Balance 175 -160 170 650 300 -100 Intake, Oral 800 240 720 650 300 Number 1 0 1 Bowel Movements Output, Urine 625 400 550 100 Patient 200 lb 199 lb 200 lb Weight Weight Bed scale Bed scale Measurement Method Physical Exam: Overweight elderly female in no acute distress. Vital signs: See above. HEENT: Normocephalic, atraumatic, EOMI, slightly dry mucous membranes. Neck: No JVD, bilateral carotid bruits vs transmitted systolic murmur. Lungs: Decreased breath sounds otherwise clear. Heart: S1, S2 (regular) with soft (grade 1-2/6) systolic murmur. Abdomen: Soft, nontender, positive bowel sounds. Extremities: 1-2+ bilateral lower extremity edema. Assessment/Plan Assessment/Plan [id number] w/ hx of gout, HLD, HTN, DM, CKD s/p RUE AV fistula w/o use necessity , ch anemia on an RITO, & PAF s/p electrical CV following [facility]I ~2015 w/ recurrence & successful antiarrhythmic Rx w/ chem CV ~2016 w/ several GH adms ( 08/23-09/01/2017; 09/09-09/19/2017; 10/05-10/17/2017) for AF w/ RVR rates & acute on chronic diastolic HF (HFpEF) who presented 02/07/2018 a.m. from her PCP 's office w/ AMS, fatigue, & hypertensive emergency (233/100 mmHg) w/ multiple small strokes after not taking her hypertensive meds at home w/ improved clinical status and VSs after IV hydralazine/IV metoprolol who had a run of atrial flutter w/ 2:1 block earlier and subsequent to that had neurological events for which "stroke alert" called who now is improved s/p multiple small strokes 2/2 hypertensive emergency versus shower of emboli from atrial fibrillation with mild residual clinical deficits. Recommendations: * Continue on telemetry. * Continue present cardiac regimen with blood pressure management as per neurology. * Physical, occupational, speech therapy. * Slowly increase activity. Continue telemetry? Yes
[2018-02-09 22:09] LABS: PTT 80 SEC (25-37)
[2018-02-10 04:00] VITALS: BP 148/70
[2018-02-10 08:10] VITALS: BP 184/62
[2018-02-10 08:47] LABS: PT 24.7 SEC (9.4-12.5)
[2018-02-10 08:54] LABS: ABSOLUTE BASOPHIL COUNT 0.1 /CUMM (0.0-0.2); ABSOLUTE EOSINOPHIL COUNT 0.6 /CUMM (0.0-0.7); ABSOLUTE GRANULOCYTE CT 6.7 /CUMM (1.4-6.5); ABSOLUTE LYMPH COUNT 2.1 /CUMM (1.2-3.4); ABSOLUTE MONOCYTE COUNT 0.7 /CUMM (0.10-0.60); BASOPHIL % 0.9 % (0.0-2.0); EOSINOPHIL % 5.4 % (0-5); GRANULOCYTE % 65.5 % (42.2-75.2); HEMATOCRIT 26.6 % (37-47); MEAN CORPUSCULAR HGB 28.9 PG (27.0-31.0); MEAN CORPUSCULAR HGB CONC 34.4 G/DL (33.0-37.0); MEAN PLATELET VOLUME 10.2 FL (7.4-10.4); PLATELET COUNT 187 /CUMM (130-400); RBC DISTRIBUTION WIDTH 14.9 % (11.5-14.5); RED BLOOD CELL CT 3.16 /CUMM (4.20-5.40); WHITE BLOOD CELL COUNT 10.2 /CUMM (4.8-10.8)
--- NOTE | 2018-02-10 09:32 | Patient Discharge Instructions ---
Discharge Instructions General Discharge Information You were seen/treated for: Hypertensive emergency Acute stroke Special Instructions: -Please follow-up with your primary care physician within 1 week after discharge -Please follow-up with janitorial assistant Dr. Aponte within 1 week after discharge -Please follow-up with neurologist within 2 weeks after discharge -Please follow-up with cafe worker within 2 weeks after discharge -Potassium was discontinued in the hospital because of hyperkalemia; follow up with PCP and follow up for continuing potassium Diet Continue normal diet: Yes Recommended Diet: Regular Activity Activity Self Limited: Yes Acute Coronary Syndrome Inclusion Criteria At DC or during hospital stay patient has or had the following: ACS DIAGNOSIS No Discharge Core Measures Meds if any: Prescribed or Continued at Discharge Meds if any: NOT Prescribed or Continued at Discharge Congestive Heart Failure Inclusion Criteria At DC or during hospital stay patient has or had the following: CHF DIAGNOSIS No Discharge Core Measures Meds if any: Prescribed or Continued at Discharge Meds if any: NOT Prescribed or Continued at Discharge Cerebrovascular accident Inclusion Criteria At DC or during hospital stay patient has or had the following: CVA/TIA Diagnosis No Discharge Core Measures Meds if any: Prescribed or Continued at Discharge Meds if any: NOT Prescribed or Continued at Discharge Venous thromboembolism Inclusion Criteria VTE Diagnosis No VTE Type NONE VTE Confirmed by (Test) NONE Discharge Core Measures - Per Current guidelines, there needs to be overlap - treatment for the first 5 days of Warfarin therapy. - If discharged on Warfarin prior to 5 days of - overlap therapy, the patient will need to be - assessed for post discharge needs including - *Post discharge parental anticoagulation - *Warfarin and/or parental anticoagulation education - *Follow up date to check INR post discharge At least 5 days overlap therapy as Inpatient Yes Meds if any: Prescribed or Continued at Discharge Note: Overlap Therapy is Warfarin and Anticoagulant Meds if any: NOT Prescribed or Continued at Discharge
--- NOTE | 2018-02-10 09:47 | PN- Housestaff ---
See Addendum Subjective Follow-up For: Hypertensive encephalopathy Acute multiple small stroke History of CKD Tele-Events Since Last Visit: Atrial fibrillation Subjective: Patient was seen and examined this morning, no overnight events, vital signs are stable. Patient offered no complaints. Full neuro exam is negative for any focal neurological deficit. Patient continued to have IV heparin, INR therapeutic at 2.25. Review of Systems Constitutional: Reports: see HPI. Objective Last 24 Hrs of Vital Signs/I&O Vital Signs Date Time Temp Pulse Resp B/P B/P Pulse O2 O2 Flow FiO2 Mean Ox Delivery Rate 02/10 0810 72 20 184/62 97 Room Air 02/10 0809 72 184/62 02/10 0808 72 184/62 02/10 0800 97 Room Air 02/10 0652 98.9 84 18 96 Room Air 02/10 0400 68 148/70 02/09 2230 54 02/09 2222 99.2 61 24 142/80 97 02/09 2110 96 Room Air 02/09 2051 58 196/82 02/09 1414 98.3 63 20 158/70 97 Room Air Intake & Output 02/10 1600 02/10 0800 02/10 0000 Intake Total 448 344 Output Total 350 400 Balance 98 -56 Intake, IV 208 104 Intake, Oral 240 240 Number 0 0 Bowel Movements Output, Urine 350 400 Patient 92.731 kg Weight Physical Exam General Appearance: Alert, Oriented X3, Cooperative, No Acute Distress Skin: No Rashes Skin Temp/Moisture Exam: Warm/Dry HEENT: Atraumatic, PERRLA, EOMI, Mucous Membr. moist/pink Neck: Supple Cardiovascular: Normal S1, Normal S2, No Murmurs, irregular irregular Lungs: Clear to Auscultation, Normal Air Movement Abdomen: Normal Bowel Sounds, Soft, No Tenderness Neurological: Normal Speech, Strength at 5/5 X4 Ext, Normal Tone, Sensation Intact, Cranial Nerves 3-12 NL, Reflexes 2+ Extremities: No Clubbing, No Cyanosis, No Edema, Normal Pulses, No Tenderness/ Swelling Current Medications: Current Medications Sig/Cole Start time Last Medication Dose Route Stop Time Status Admin Acetaminophen 650 MG Q6P PRN 02/07 2330 AC PO Aspirin 81 MG DAILY 02/09 0900 DC 02/10 PO 0807 Atorvastatin Calcium 40 MG 1700 02/08 1700 AC 02/09 PO 1703 Calcitriol 0.25 MCG DAILY 02/08 0900 AC 02/10 PO 0808 Diltiazem HCl 300 MG DAILY 02/08 0900 AC 02/10 PO 0808 Ferrous Sulfate 325 MG TID 02/08 0900 AC 02/10 PO 0808 Heparin Sodium/ 25,000 UNIT Q24H 02/09 1445 AC 02/09 Dextrose IV 1530 Dextrose/Water 500 ML Hydralazine HCl 50 MG BID 02/08 2100 AC 02/09 PO 2051 Insulin Aspart 0 TIDAC 02/09 1200 AC 02/10 SC 0808 Metoprolol Tartrate 37.5 MG BID 02/08 0900 AC 02/10 PO 0808 Patient Medication 1 ED ONE ONE 02/09 1345 DC 02/09 Teaching ED 02/09 1346 1355 Potassium Chloride 40 MEQ QAM 02/08 0900 AC 02/10 PO 0808 Sevelamer Carbonate 1,600 MG WM 02/08 0800 AC 02/10 PO 0807 Warfarin Sodium 7.5 MG COUMADIN 1700 ONE 02/09 1700 DC 02/09 PO 02/09 1701 1703 Last 24 Hrs of Lab/Rayshawn Results Last 24 Hrs of Labs/Mics: Laboratory Tests 02/10/18 0905: APTT Pending 02/10/18 0640: Anion Gap 11, Estimated GFR 12 L, BUN/Creatinine Ratio 26.8 H, PT 24.7 H, INR 2.25 H, CBC w Diff Pending, WBC Pending, RBC Pending, Hgb Pending, Hct Pending, MCV Pending, MCH Pending, MCHC Pending, RDW Pending, Plt Count Pending, MPV Pending 02/09/18 2030: APTT 80 H Assessment/Plan Assessment: Mrs. Yao is 73 year old female with past medical history significant for atrial fibrillation on Coumadin, HfpEF, COPD not on home oxygen, insulin- dependent diabetes mellitus, CKD stage 5/ESRD due to DM & HTN, pulmonary hypertension, right external carotid stenosis, obesity. Patient was admitted to telemetry floor for hypertensive emergency and encephalopathy that resolved. Patient had a stroke alert and secondary of hospitalization, MRI showed multiple small acute infarcts within the right MCA territory. Patient was started on aspirin, high intensity atorvastatin, heparin IV for optimal anticoagulation, continue it on p.o. warfarin for atrial fibrillation. Today 02/10 Acute multiple small stroke patient was evaluated, for neurological exam negative for any focal neurological deficit. Lab values reflecting CKD with improving creatinine however BUN is 102 slightly lower from yesterday 105. I am concerned for upper GI given dual anticoagulation and aspirin. -discontinue aspirin insetting of IV heparin and warfarin with therapeutic INR today -guaiac all stool -Follow-up CBCs still pending -Follow neurology recommendation -Consider discontinuing heparin IV since patient has therapeutic INR today CKD -Creatinine improving, around baseline -Hypokalemia, patient is on p.o. potassium supplementation -Follow nephrology recommendation Hypertension -Continue metoprolol, diltiazem -Hydralazine as needed for systolic blood pressure above 170/90 -Follow recommendation for blood pressure adjustment -Avoid sudden aggressive blood pressure control History of diabetes: -Accu-Cheks -Insulin NovoLog according to sliding scale DVT prophylaxis: Mechanical, heparin IV, warfarin CODE STATUS: Full code Problem List: 1. Acute ischemic stroke 2. Hypertensive encephalopathy 3. Hypertensive emergency Pain Ratin Pain Location: n/a Pain Goal: Pain 4 or less Pain Plan: see medication Tomorrow's Labs & Rationales: INR, CBC, BEP
[2018-02-10 11:06] LABS: PTT 107 SEC (25-37)
--- NOTE | 2018-02-10 13:47 | PN- Cardiology ---
Subjective Subjective: no acute events, patient has no complaints. BP remains elevated , on average 180-190 mmHg systolic and 60-80 mmHg diastolic. Objective Vital Signs and I&Os Vital Signs Date Time Temp Pulse Resp B/P B/P Pulse O2 O2 Flow FiO2 Mean Ox Delivery Rate 02/10 0810 72 20 184/62 97 Room Air 02/10 0809 72 184/62 02/10 0808 72 184/62 02/10 0800 97 Room Air 02/10 0652 98.9 84 18 96 Room Air 02/10 0400 68 148/70 02/09 2230 54 02/09 2222 99.2 61 24 142/80 97 02/09 2110 96 Room Air 02/09 2051 58 196/82 02/09 1414 98.3 63 20 158/70 97 Room Air Intake & Output 02/10 1600 02/10 0800 02/10 0000 02/09 1600 02/09 0800 02/09 0000 Intake Total 448 344 800 240 720 Output Total 350 400 625 400 550 Balance 98 -56 175 -160 170 Intake, IV 208 104 Intake, Oral 240 240 800 240 720 Number 0 0 1 0 Bowel Movements Output, Urine 350 400 625 400 550 Patient 204 lb 200 lb Weight Weight Bed scale Measurement Method Physical Exam: General Appearance: Alert, Oriented X3, No Acute Distress HEENT: Mucous Membr. moist/pink Neck: Supple, trachea midline Cardiovascular: No Murmurs, irregular heart beats , good capillary refill Lungs: Clear to Auscultation, Normal Air Movement Abdomen: Normal Bowel Sounds, Soft, No Tenderness Neurological: Normal Speech, no focal motor deficit,Sensation Intact Current Medications: Current Medications Sig/Cole Start time Last Medication Dose Route Stop Time Status Admin Acetaminophen 650 MG Q6P PRN 02/07 2330 AC PO Aspirin 81 MG DAILY 02/09 0900 DC 02/10 PO 0807 Atorvastatin Calcium 40 MG 1700 02/08 1700 AC 02/09 PO 1703 Calcitriol 0.25 MCG DAILY 02/08 09 AC 02/10 PO 0808 Diltiazem HCl 300 MG DAILY 02/08 0900 AC 02/10 PO 0808 Ferrous Sulfate 325 MG TID 02/08 09 AC 02/10 PO 0808 Heparin Sodium/ 25,000 UNIT Q24H 02/09 1445 AC 02/10 Dextrose IV 1111 Dextrose/Water 500 ML Hydralazine HCl 50 MG BID 02/08 2100 AC 02/09 PO 2050 Insulin Aspart 0 TIDAC 02/09 1200 AC 02/10 SC 1241 Metoprolol Tartrate 37.5 MG BID 02/08 0900 AC 02/10 PO 0808 Patient Medication 1 ED ONE ONE 02/09 1345 DC 02/09 Teaching ED 02/09 1346 1355 Potassium Chloride 40 MEQ BID 02/10 1148 AC 02/10 PO 02/11 2101 1241 Potassium Chloride 40 MEQ QAM 02/08 0900 AC 02/10 PO 0808 Sevelamer Carbonate 1,600 MG WM 02/08 0800 AC 02/10 PO 1241 Warfarin Sodium 5 MG COUMADIN 1700 ONE 02/10 1700 AC PO 02/10 1701 Warfarin Sodium 7.5 MG COUMADIN 170 ONE 02/09 1700 DC 02/09 PO 02/09 1701 1703 Results Last 48 Hrs of Labs/Mics: Laboratory Tests 02/10/18 0905: APTT 107 *H 02/10/18 0640: Anion Gap 11, Estimated GFR 12 L, BUN/Creatinine Ratio 26.8 H, PT 24.7 H, INR 2.25 H, CBC w Diff NO MAN DIFF REQ, RBC 3.16 L, MCV 84.0, MCH 28.9, MCHC 34.4, RDW 14.9 H, MPV 10.2, Gran % 65.5, Lymphocytes % 21.0, Monocytes % 7.2, Eosinophils % 5.4 H, Basophils % 0.9, Absolute Granulocytes 6.7 H, Absolute Lymphocytes 2.1, Absolute Monocytes 0.7 H, Absolute Eosinophils 0.6, Absolute Basophils 0.1 02/09/18 2030: APTT 80 H 02/09/18 0610: Anion Gap 13, Estimated GFR 10 L, BUN/Creatinine Ratio 23.9, PT 21.4 H, INR 1.95 H, CBC w Diff NO MAN DIFF REQ, RBC 3.37 L, MCV 84.1, MCH 29.2, MCHC 34.7, RDW 14.4, MPV 9.6, Gran % 64.2, Lymphocytes % 20.4 L, Monocytes % 9.5 H, Eosinophils % 5.2 H, Basophils % 0.7, Absolute Granulocytes 5.8, Absolute Lymphocytes 1.8, Absolute Monocytes 0.8 H, Absolute Eosinophils 0.5, Absolute Basophils 0.1 Assessment/Plan Assessment/Plan Please increase patient's hydralazine to 100 mg PO tid and increase metoprolol to 50 mg PO bid. Addition of a thiazide diuretic could be considered if BP remains elevated. Continue telemetry? No
[2018-02-10 14:28] VITALS: BP 113/62
[2018-02-10 16:04] VITALS: BP 124/70
[2018-02-10 18:15] LABS: PTT 111 SEC (25-37)
[2018-02-10 22:18] VITALS: BP 100/62
[2018-02-11 06:12] VITALS: BP 150/80
[2018-02-11 07:28] LABS: ABSOLUTE BASOPHIL COUNT 0.1 /CUMM (0.0-0.2); ABSOLUTE EOSINOPHIL COUNT 0.5 /CUMM (0.0-0.7); ABSOLUTE GRANULOCYTE CT 6.6 /CUMM (1.4-6.5); ABSOLUTE LYMPH COUNT 2.1 /CUMM (1.2-3.4); ABSOLUTE MONOCYTE COUNT 0.9 /CUMM (0.10-0.60); BASOPHIL % 0.7 % (0.0-2.0); EOSINOPHIL % 5.2 % (0-5); GRANULOCYTE % 64.9 % (42.2-75.2); HEMATOCRIT 27.2 % (37-47); MEAN CORPUSCULAR HGB 28.9 PG (27.0-31.0); MEAN CORPUSCULAR HGB CONC 34.3 G/DL (33.0-37.0); MEAN CORPUSCULAR VOLUME 84.1 FL (81.0-99.0); MEAN PLATELET VOLUME 8.8 FL (7.4-10.4); PLATELET COUNT 199 /CUMM (130-400); RBC DISTRIBUTION WIDTH 15.2 % (11.5-14.5); RED BLOOD CELL CT 3.24 /CUMM (4.20-5.40); WHITE BLOOD CELL COUNT 10.2 /CUMM (4.8-10.8)
--- NOTE | 2018-02-11 08:12 | PN- Housestaff ---
Rex Zhang 02/11/18 0811: Subjective Follow-up For: Hypertensive Encephalopathy Acute multiple small stroke History of CKD Tele-Events Since Last Visit: Wandering Atrial Pacer; Rate at 83 Subjective: Patient was seen and examined this morning, no overnight events. Patient had a reported blood pressure of 219/86 this morning and given morning medications. Patient denies any new complaints. Full neuro exam is negative for any focal neurological deficit. Patient continued to have IV heparin, INR therapeutic at 2.48. Overnight potassium resolved from 3.3 to 4.7. Review of Systems Constitutional: Denies: see HPI. Objective Last 24 Hrs of Vital Signs/I&O Vital Signs Date Time Temp Pulse Resp B/P B/P Pulse O2 O2 Flow FiO2 Mean Ox Delivery Rate 02/11 1000 97.7 65 18 160/70 99 Room Air 02/11 0820 68 219/86 02/11 0820 68 219/86 02/11 0819 68 219/86 02/11 0800 98 Room Air 02/11 0612 98.3 82 18 150/80 98 Room Air 02/10 2218 98.9 60 18 100/62 98 Room Air 02/10 2052 52 100/62 02/10 1604 56 124/70 02/10 1600 100 Room Air 02/10 1428 98.4 59 18 113/62 100 Room Air Intake & Output 02/11 1600 02/11 0800 02/11 0000 Intake Total 120 485 Output Total 575 450 Balance -455 35 Intake, IV 45 Intake, Oral 120 440 Number 0 0 Bowel Movements Output, Urine 575 450 Patient 203 lb Weight Weight Bed scale Measurement Method Physical Exam General Appearance: Alert, Oriented X3, Cooperative, No Acute Distress HEENT: Atraumatic, PERRLA, EOMI Cardiovascular: Normal S1, Normal S2 (Irregular rhythm) Lungs: Clear to Auscultation, Normal Air Movement Abdomen: Normal Bowel Sounds, Soft, No Tenderness Neurological: Normal Speech, Strength at 5/5 X4 Ext, Normal Tone, Sensation Intact, Cranial Nerves 3-12 NL, Reflexes 2+ Extremities: No Clubbing (2+ bilateral lower extremitie) Current Medications: Current Medications Sig/Cole Start time Last Medication Dose Route Stop Time Status Admin Acetaminophen 650 MG Q6P PRN 02/07 2330 AC PO Atorvastatin Calcium 40 MG 1700 02/08 1700 AC 02/10 PO 1729 Calcitriol 0.25 MCG DAILY 02/08 09 AC 02/11 PO 0820 Diltiazem HCl 300 MG DAILY 02/08 0900 AC 02/11 PO 0820 Ferrous Sulfate 325 MG TID 02/08 09 AC 02/11 PO 0820 Heparin Sodium/ 25,000 UNIT Q24H 02/09 1445 DC 02/10 Dextrose IV 02/10 2200 1111 Dextrose/Water 500 ML Hydralazine HCl 100 MG TID 02/11 09 AC 02/11 PO 0820 Hydralazine HCl 100 MG TID 02/10 2100 DC PO Hydralazine HCl 50 MG TID 02/10 2100 DC PO Hydralazine HCl 50 MG BID 02/08 2100 DC 02/09 PO 205 Insulin Aspart 0 AT BEDTIME 02/10 2100 AC SC Insulin Aspart 0 TIDAC 02/09 1200 AC 02/11 SC 0819 Metoprolol Tartrate 50 MG BID 02/10 2100 AC 02/11 PO 0820 Metoprolol Tartrate 37.5 MG BID 02/08 09 DC 02/10 PO 0808 Potassium Chloride 40 MEQ BID 02/10 1148 AC 02/11 PO 02/11 210 0823 Potassium Chloride 40 MEQ QAM 02/08 09 AC 02/10 PO 0808 Sevelamer Carbonate 1,600 MG WM 02/08 0800 AC 02/11 PO 0819 Warfarin Sodium 5 MG COUMADIN 1700 ONE 02/11 1700 AC PO 02/11 1701 Warfarin Sodium 5 MG COUMADIN 1700 ONE 02/10 1700 DC 02/10 PO 02/10 1701 1729 Last 24 Hrs of Lab/Rayshawn Results Last 24 Hrs of Labs/Mics: Laboratory Tests 02/11/18 0620: Anion Gap 12, Estimated GFR 12 L, BUN/Creatinine Ratio 26.2 H, PT 27.3 H, INR 2.48 H, CBC w Diff NO MAN DIFF REQ, RBC 3.24 L, MCV 84.1, MCH 28.9, MCHC 34.3, RDW 15.2 H, MPV 8.8, Gran % 64.9, Lymphocytes % 20.5, Monocytes % 8.7, Eosinophils % 5.2 H, Basophils % 0.7, Absolute Granulocytes 6.6 H, Absolute Lymphocytes 2.1, Absolute Monocytes 0.9 H, Absolute Eosinophils 0.5, Absolute Basophils 0.1 02/10/18 1705: APTT 111 *H Assessment/Plan Assessment: Mrs. Yao is 73 year old female with past medical history significant for atrial fibrillation on Coumadin, HfpEF, COPD not on home oxygen, insulin- dependent diabetes mellitus, CKD stage 5/ESRD due to DM & HTN, pulmonary hypertension, right external carotid stenosis, obesity. Patient was admitted to telemetry floor for hypertensive emergency and encephalopathy that resolved. Patient stroke alert and MRI demonstrating smalla cute infarcts within right MCA led to adminstration of aspirin, high intesntiy atrovastatin ,heparin IV and conitnued p.o. warfarin for A-fib. Acute Multiple Small Stroke -continue coumadin and monitor INR Hypertension -BP reading of 219/86 (02/11); monitor [id number] -continue hydralazine 100mg TID; Lopressor 50mg BID -f/u cardiology note and recommendation for blood pressure adjustment CKD -creatinine 3.7; continue to monitor -potassium normalized Diabetes -Accu-Checks -Insulin NovoLog according to sliding scale Code Status: Full Code Problem List: 1. Afib 2. Chronic kidney disease (CKD) 3. Hypertension Pain Ratin Pain Location: No complaints of pain Pain Goal: Remain pain free Pain Plan: Monitor for pain Tomorrow's Labs & Rationales: CBC - on coumadin BEP - CKD INR - on coumadin Bina BARBOUR,[facility] 02/11/18 1158: Attending MD Review Statement Attending Statement Attending MD Statement: examined this patient, discuss w/resident/PA/MIXING HOUSE OPERATOR, agreed w/resident/PA/MIXING HOUSE OPERATOR, reviewed EMR data (avail), discussed with nursing Attending Assessment/Plan: Pt was seen and evaluated, chart reviewed. Appreciate cards recommendations. --BP remains elevated, agree with adjusting BP meds. --replete lytes and cont to monitor
[2018-02-11 08:19] VITALS: BP 219/86
[2018-02-11 08:50] LABS: PT 27.3 SEC (9.4-12.5)
[2018-02-11 10:00] VITALS: BP 160/70
[2018-02-11 14:55] VITALS: BP 160/66
[2018-02-11 18:01] VITALS: BP 164/78
[2018-02-11 22:24] VITALS: BP 152/80
[2018-02-12 02:00] VITALS: BP 150/64
[2018-02-12 06:00] VITALS: BP 164/82
--- NOTE | 2018-02-12 07:07 | PN- Housestaff ---
Rex Zhang 02/12/18 0706: Subjective Follow-up For: Hypertensive Encephalopathy Acute Multiple Small Stroke History of CKD Tele-Events Since Last Visit: Wandering Atrial Pacing; 64 heart rate; PACs Subjective: Patient seen and examined at bedside this morning. No acute overnight events. Patients blood pressure is continuing to stablize on her current antihypertensive regimen. Recent blood pressure is 126/66. Patient denies any sigfniciant complaints. Full neuro exam is negative for any focal neurological deficit. Patients potassium was 5.5 this morning with no sigfniciant changes on EKG as the patient remains asymptomatic. Nephrology and cardiology have followed and recommend to monitor blood pressure and potassium as no need for dialysis or pharmacological intervention as of now. Patient currently on Warfarin with a theraputic INR of 2.75. Patient denies any chest pain, shortness of breath, changes in visions or headaches. Review of Systems Constitutional: Denies: see HPI. Objective Last 24 Hrs of Vital Signs/I&O Vital Signs Date Time Temp Pulse Resp B/P B/P Pulse O2 O2 Flow FiO2 Mean Ox Delivery Rate 02/12 1448 97.9 72 20 99 Room Air 02/12 1437 64 126/66 07 1229 62 152/66 07/ 0850 60 140/60 / 0600 98.7 65 20 164/82 96 Room Air 02/12 0200 98.2 74 18 150/64 97 Room Air 02/11 2224 98.9 72 18 152/80 95 Room Air 02/11 2145 72 166/82 07 2144 72 166/82 02/11 1801 69 164/78 02/11 1600 99 Room Air 02/11 1548 64 160/66 Intake & Output 02/12 1600 /02 0800 07/ 0000 Intake Total 600 740 Output Total 700 500 Balance -100 240 Intake, IV 40 Intake, Oral 560 740 Number 1 Bowel Movements Output, Urine 700 500 Patient 211 lb 211 lb Weight Physical Exam General Appearance: Alert, Oriented X3, Cooperative, No Acute Distress HEENT: Atraumatic, PERRLA, EOMI Cardiovascular: Regular Rate, Normal S1, Normal S2, No Murmurs, Irregular rhythm Lungs: Clear to Auscultation, Normal Air Movement Abdomen: Normal Bowel Sounds, Soft, No Tenderness Neurological: Normal Speech, Strength at 5/5 X4 Ext, Normal Tone, Sensation Intact, Cranial Nerves 3-12 NL, Reflexes 2+ Extremities: No Clubbing, No Cyanosis, Normal Pulses, +2 Pitting Edema in bilateral lower extremities Vascular: Normal Pulses (irregularly irregular), Pulses Symmetrical Current Medications: Current Medications Sig/Cole Start time Last Medication Dose Route Stop Time Status Admin Acetaminophen 650 MG Q6P PRN 02/07 2330 AC PO Atorvastatin Calcium 40 MG 1700 02/08 1700 AC 02/11 PO 1736 Calcitriol 0.25 MCG DAILY 02/08 09 AC 02/12 PO 0850 Diltiazem HCl 300 MG DAILY 02/08 0900 AC 02/12 PO 0851 Docusate Sodium 100 MG DAILY NEEDED PRN 02/11 1500 AC PO Ferrous Sulfate 325 MG TID 02/08 09 AC 02/12 PO 1437 Hydralazine HCl 100 MG TID 02/11 0900 AC 02/11 PO 1548 Insulin Aspart 0 AT BEDTIME 02/10 2100 AC SC Insulin Aspart 0 TIDAC 02/09 1200 AC 02/12 SC 1223 Metoprolol Tartrate 50 MG BID 02/10 2100 AC 02/11 PO 2144 Polyethylene Glycol 17 GM DAILY 02/11 1454 AC 02/12 PO 0851 Potassium Chloride 40 MEQ BID 02/10 1148 DC 02/11 PO 02/11 210 2144 Potassium Chloride 40 MEQ QAM 02/08 0900 DC 02/10 PO 0808 Sevelamer Carbonate 1,600 MG WM 02/08 0800 AC 02/12 PO 1226 Torsemide 60 MG DAILY 02/12 1347 AC 02/12 PO 1437 Warfarin Sodium 5 MG COUMADIN 1700 02/12 1700 AC PO 02/12 2359 Warfarin Sodium 5 MG COUMADIN 1700 ONE 02/11 1700 DC 02/11 PO 02/11 1701 1736 Last 24 Hrs of Lab/Rayshawn Results Last 24 Hrs of Labs/Mics: Laboratory Tests 02/12/18 0622: Anion Gap 10, Estimated GFR 11 L, BUN/Creatinine Ratio 21.5, PT 30.3 H, INR 2.75 H, CBC w Diff NO MAN DIFF REQ, RBC 3.25 L, MCV 84.4, MCH 28.9, MCHC 34.3, RDW 15.2 H, MPV 9.0, Gran % 66.3, Lymphocytes % 19.5 L, Monocytes % 8.1, Eosinophils % 5.8 H, Basophils % 0.3, Absolute Granulocytes 7.7 H, Absolute Lymphocytes 2.3, Absolute Monocytes 0.9 H, Absolute Eosinophils 0.7, Absolute Basophils 0 Assessment/Plan Assessment: A/P: Mrs. Yao is 73 year old female with past medical history significant for atrial fibrillation on Coumadin, HfpEF, COPD not on home oxygen, insulin- dependent diabetes mellitus, CKD stage 5/ESRD due to DM & HTN, pulmonary hypertension, right external carotid stenosis, obesity. Patient was admitted to telemetry floor for hypertensive emergency and encephalopathy that resolved. Patient stroke alert and MRI demonstrating smalla cute infarcts within right MCA led to adminstration of aspirin, high intesntiy atrovastatin ,heparin IV and conitnued p.o. warfarin for A-fib. Patient has been seen by cardiology and nephrology as for hypertension and hyperkalemia. Patients blood pressure is under control. Patient is in no acute distress. HYPERTENSION/Stroke on MRI -patients blood pressure continuing to improve with most recent at 126/66 -continue on telemetry -continue antihypertensive regimen as per cardiology (Diltiazem 300mg daily, Hydralizine 100mg TID, Metoprolol 50mg BID) -DVT prophylaxis adressed with INR at 2.75 CKD Stage 5/HYPERKALEMIA/ELECTROLYTES -patients potassium at 5.5 today -EKG ordered with no significant changes -patient seen by Nephrology; as in CKD stage 5; no need for dialysis; high potassium likely due to KCL supplemets and diuretics on hold; advised to resume Toresemide 60mg/day -Repeat AM labs with Phosphorus Level -continue calcitriol + sevelamer Patient care discussed with patient and correctional case manager; possible discharge tomorrow if blood pressure is stable Regular Diet DVT Prophylaxis: patient on Warfarin 5mg; recent INR 2.75 Code Status: Full Code Problem List: 1. Chronic kidney disease (CKD) 2. Afib 3. Diabetes mellitus 4. Hypertension 5. Hypertensive emergency 6. Acute ischemic stroke Pain Ratin Pain Location: N/A Pain Goal: Remain pain free Pain Plan: As per pain pathway Tomorrow's Labs & Rationales: INR - on Warfarin Phosphorus BEP CBC DVT/Prophylaxis: pharmacological Sumit Meza 02/12/18 1102: Attending MD Review Statement Attending Statement Attending MD Statement: examined this patient, discuss w/resident/PA/GEAR HOBBER OPERATOR, agreed w/resident/PA/GEAR HOBBER OPERATOR, reviewed EMR data (avail), discussed with nursing, discussed with case mgmt Attending Assessment/Plan: Hypertensive emergency with Stroke on MRI- "Multiple small acute infarcts within the right MCA territory (which may be partly in the deep internal border zone) involving the frontal parietal and temporal white matter and posterior ala of the corpus callosum." Seen by neuro. Conc current anticoagulation and INR is therapeutic. Monitor BP and better control now. d/w pt the care plan. Possible dc tomorrow if bp stable. d/w case management.
[2018-02-12 07:23] LABS: ABSOLUTE BASOPHIL COUNT 0 /CUMM (0.0-0.2); ABSOLUTE EOSINOPHIL COUNT 0.7 /CUMM (0.0-0.7); ABSOLUTE GRANULOCYTE CT 7.7 /CUMM (1.4-6.5); ABSOLUTE LYMPH COUNT 2.3 /CUMM (1.2-3.4); ABSOLUTE MONOCYTE COUNT 0.9 /CUMM (0.10-0.60); BASOPHIL % 0.3 % (0.0-2.0); EOSINOPHIL % 5.8 % (0-5); GRANULOCYTE % 66.3 % (42.2-75.2); HEMATOCRIT 27.5 % (37-47); MEAN CORPUSCULAR HGB 28.9 PG (27.0-31.0); MEAN CORPUSCULAR HGB CONC 34.3 G/DL (33.0-37.0); MEAN CORPUSCULAR VOLUME 84.4 FL (81.0-99.0); PLATELET COUNT 208 /CUMM (130-400); RBC DISTRIBUTION WIDTH 15.2 % (11.5-14.5); RED BLOOD CELL CT 3.25 /CUMM (4.20-5.40); WHITE BLOOD CELL COUNT 11.6 /CUMM (4.8-10.8)
[2018-02-12 08:12] LABS: PT 30.3 SEC (9.4-12.5)
--- NOTE | 2018-02-12 10:03 | PN- Cardiology ---
Subjective Subjective: No complaints. Sinus rhythm with PACs on telemetry. Objective Vital Signs and I&Os Vital Signs Date Time Temp Pulse Resp B/P B/P Pulse O2 O2 Flow FiO2 Mean Ox Delivery Rate 02/12 0850 60 140/60 02/12 0600 98.7 65 20 164/82 96 Room Air 02/12 0200 98.2 74 18 150/64 97 Room Air 02/11 2224 98.9 72 18 152/80 95 Room Air 02/11 2145 72 166/82 07/ 2144 72 166/82 07/ 1801 69 164/78 07 1600 99 Room Air 02/11 1548 64 160/66 07/ 1455 97.9 55 18 160/66 99 Room Air / 1000 97.7 65 18 160/70 99 Room Air Intake & Output 02/12 1600 02/12 0800 / 0000 02/11 1600 02/11 0800 02/11 0000 Intake Total 740 860 120 485 Output Total 200 500 400 575 450 Balance -200 240 460 -455 35 Intake, IV 45 Intake, Oral 740 860 120 440 Number 0 0 Bowel Movements Output, Urine 200 500 400 575 450 Patient 211 lb 203 lb Weight Weight Bed scale Measurement Method Physical Exam: Overweight elderly female in no acute distress. Vital signs: See above. HEENT: Normocephalic, atraumatic, EOMI, slightly dry mucous membranes. Neck: No JVD, bilateral carotid bruits vs transmitted systolic murmur. Lungs: Decreased breath sounds otherwise clear. Heart: S1, S2 (regular) with soft (grade 1-2/6) systolic murmur. Abdomen: Soft, nontender, positive bowel sounds. Extremities: 1-2+ bilateral lower extremity edema. Current Medications: Current Medications Sig/Cole Start time Last Medication Dose Route Stop Time Status Admin Acetaminophen 650 MG Q6P PRN 02/07 2330 AC PO Atorvastatin Calcium 40 MG 1700 02/08 1700 AC 02/11 PO 1736 Calcitriol 0.25 MCG DAILY 02/08 09 AC 02/12 PO 0850 Diltiazem HCl 300 MG DAILY 02/08 09 AC 02/12 PO 0851 Docusate Sodium 100 MG DAILY NEEDED PRN 02/11 1500 AC PO Ferrous Sulfate 325 MG TID 02/08 900 AC 02/12 PO 0850 Hydralazine HCl 100 MG TID 02/11 0900 AC 02/11 PO 1548 Insulin Aspart 0 AT BEDTIME 02/10 2100 AC SC Insulin Aspart 0 TIDAC 02/09 1200 AC 02/12 SC 0841 Metoprolol Tartrate 50 MG BID 02/10 2100 AC 02/11 PO 2144 Polyethylene Glycol 17 GM DAILY 02/11 1454 AC 02/12 PO 0851 Potassium Chloride 40 MEQ BID 02/10 1148 DC 02/11 PO 02/11 210 2144 Potassium Chloride 40 MEQ QAM 02/08 0900 AC 02/10 PO 0808 Sevelamer Carbonate 1,600 MG WM 02/08 0800 AC 02/12 PO 0841 Warfarin Sodium 5 MG COUMADIN 1700 02/12 1700 AC PO 02/12 2359 Warfarin Sodium 5 MG COUMADIN 1700 ONE 02/11 1700 DC 02/11 PO 02/11 1701 1736 Results Last 48 Hrs of Labs/Mics: Laboratory Tests 02/12/18 0622: Anion Gap 10, Estimated GFR 11 L, BUN/Creatinine Ratio 21.5, PT 30.3 H, INR 2.75 H, CBC w Diff NO MAN DIFF REQ, RBC 3.25 L, MCV 84.4, MCH 28.9, MCHC 34.3, RDW 15.2 H, MPV 9.0, Gran % 66.3, Lymphocytes % 19.5 L, Monocytes % 8.1, Eosinophils % 5.8 H, Basophils % 0.3, Absolute Granulocytes 7.7 H, Absolute Lymphocytes 2.3, Absolute Monocytes 0.9 H, Absolute Eosinophils 0.7, Absolute Basophils 0 02/11/18 0620: Anion Gap 12, Estimated GFR 12 L, BUN/Creatinine Ratio 26.2 H, PT 27.3 H, INR 2.48 H, CBC w Diff NO MAN DIFF REQ, RBC 3.24 L, MCV 84.1, MCH 28.9, MCHC 34.3, RDW 15.2 H, MPV 8.8, Gran % 64.9, Lymphocytes % 20.5, Monocytes % 8.7, Eosinophils % 5.2 H, Basophils % 0.7, Absolute Granulocytes 6.6 H, Absolute Lymphocytes 2.1, Absolute Monocytes 0.9 H, Absolute Eosinophils 0.5, Absolute Basophils 0.1 02/10/18 1705: APTT 111 *H Recent Imaging Studies: ECG 02/12/2018: Sinus rhythm, first-degree AV block, multiple APCs, LAFB, nondiagnostic T-wave abnormalities. Assessment/Plan Assessment/Plan [id number] w/ hx of gout, HLD, HTN, DM, CKD s/p RUE AV fistula w/o use necessity , ch anemia on an RITO, & PAF s/p electrical CV following [facility] ~2015 w/ recurrence & successful antiarrhythmic Rx w/ chem CV ~2017 w/ several GH adms ( 08/23-09/01/2017; 09/09-09/19/2017; 10/05-10/17/2017) for AF w/ RVR rates & acute on chronic diastolic HF (HFpEF) who presented 02/07/2018 a.m. from her PCP 's office w/ AMS, fatigue, & hypertensive emergency (233/100 mmHg) w/ multiple small strokes after not taking her hypertensive meds at home w/ improved clinical status and VSs after IV hydralazine/IV metoprolol who had a run of atrial flutter w/ 2:1 block earlier and subsequent to that had neurological events for which "stroke alert" called who now is improved s/p multiple small strokes 2/2 hypertensive emergency vs shower of emboli from AF w/ mild residual clinical deficits. BP coming under better control. Continue present regimen. Recommendations: * Continue on telemetry. * Continue present antihypertensive regimen (diltiazem 300 mg daily, hydralazine 100 mg 3 times daily, metoprolol 50 mg twice daily). * Treat hyperkalemia. * Physical, occupational, speech therapy. * Continue to increase activity. * DVT prophylaxis being addressed. INR 2.75. Continue telemetry? No
--- NOTE | 2018-02-12 12:18 | PN- Nephrology ---
Assessment/Plan Nephrology Assessment: CKD stage 5: Due to DM/HTN. No need for dialysis currently. K is 5.5 but this appears to be due to having been on KCL supplements & her diuretics are on hold. Hyperkalemia: DC KCL supplements. Resume torsemide 60 mg/day; 1st now. No need for kayexelate, unless K+ rises further tomorrow. h/o CHF: Resume torsemide 60 mg/day. If not on formulary pt can take home med (she has it with her). Anemia of CKD: Favor not starting Procrit (or similar) at this time as Hb in 9s & given CVA. RITO agents are associated with increase risk of CVA if Hb increases to 13 while on these agents. HTN: BP control improved Renal BMM: For secondary hyperpara continue calcitriol. For phosphorus, would add on a phosphorus level or check in the AM. Suggestion: DC KCL supplements Resume torsemide 60 mg /day (pts home med) repeat labs in AM with phos level continue calcitriol, & sevelamer Narciso Chand MD Subjective Subjective: No acute events feels well BP well controlled K 5.5 on KCL supplements weight up about 11 lbs since admit Review of Systems: no fever/chills no sob/chest pain Objective Vital Signs and I&Os Vital Signs Date Time Temp Pulse Resp B/P B/P Pulse O2 O2 Flow FiO2 Mean Ox Delivery Rate / 0850 60 140/60 / 0600 98.7 65 20 164/82 96 Room Air / 0200 98.2 74 18 150/64 97 Room Air 02/11 2224 98.9 72 18 152/80 95 Room Air 07/ 2145 72 166/82 07/ 2144 72 166/82 / 1801 69 164/78 07/ 1600 99 Room Air / 1548 64 160/66 07/01 1455 97.9 55 18 160/66 99 Room Air Intake & Output 02/12 1600 02/12 0400 02/11 1600 02/11 0400 02/10 1600 02/10 0400 Intake Total 740 344 692 2136 344 Output Total 200 500 975 450 500 400 Balance -200 240 5 35 824 -56 Intake, IV 45 404 104 Intake, Oral 740 980 440 920 240 Number 0 0 0 0 Bowel Movements Output, Urine 200 500 975 450 500 400 Patient 211 lb 203 lb 204 lb Weight Weight Bed scale Measurement Method Physical Exam: NAD ctab RUE AVF +thrill/bruit S1 S2 trace edema no asterixis, no myoclonic jerks +chronic venous changes Current Medications: Current Medications Sig/Cole Start time Last Medication Dose Route Stop Time Status Admin Acetaminophen 650 MG Q6P PRN 02/07 2330 AC PO Atorvastatin Calcium 40 MG 1700 02/08 1700 AC 02/11 PO 1736 Calcitriol 0.25 MCG DAILY 02/08 0900 AC 02/12 PO 0850 Diltiazem HCl 300 MG DAILY 02/08 09 AC 02/12 PO 0851 Docusate Sodium 100 MG DAILY NEEDED PRN 02/11 1500 AC PO Ferrous Sulfate 325 MG TID 02/08 09 AC 02/12 PO 0850 Hydralazine HCl 100 MG TID 02/11 0900 AC 02/11 PO 1548 Insulin Aspart 0 AT BEDTIME 02/10 2100 AC SC Insulin Aspart 0 TIDAC 02/09 1200 AC 02/12 SC 0841 Metoprolol Tartrate 50 MG BID 02/10 2100 AC 02/11 PO 2144 Polyethylene Glycol 17 GM DAILY 02/11 1454 AC 02/12 PO 0851 Potassium Chloride 40 MEQ BID 02/10 1148 DC 02/11 PO 02/11 2101 2144 Potassium Chloride 40 MEQ QAM 02/08 0900 AC 02/10 PO 0808 Sevelamer Carbonate 1,600 MG WM 02/08 0800 AC 02/12 PO 0841 Warfarin Sodium 5 MG COUMADIN 1700 02/12 1700 AC PO 02/12 2359 Warfarin Sodium 5 MG COUMADIN 1700 ONE 02/11 1700 DC 02/11 PO 02/11 1701 1736 Results Pertinent Lab Results: Laboratory Tests 02/12 02/11 0622 0620 Chemistry Sodium (137 - 145 mmol/L) 142 141 Potassium (3.5 - 5.1 mmol/L) 5.5 H 4.7 Chloride (98 - 107 mmol/L) 106 103 Carbon Dioxide (22 - 30 mmol/L) 26 26 Anion Gap (5 - 16) 10 12 BUN (7 - 17 mg/dL) 88 H 97 H Creatinine (0.5 - 1.0 mg/dL) 4.1 H 3.7 H Estimated GFR (>60 ml/min) 11 L 12 L BUN/Creatinine Ratio (7 - 25 %) 21.5 26.2 H Coagulation PT (9.4 - 12.5 SEC) 30.3 H 27.3 H INR (0.90 - 1.19) 2.75 H 2.48 H Hematology CBC w Diff NO MAN DIFF REQ NO MAN DIFF REQ WBC (4.8 - 10.8 /CUMM) 11.6 H 10.2 RBC (4.20 - 5.40 /CUMM) 3.25 L 3.24 L Hgb (12.0 - 16.0 G/DL) 9.4 L 9.4 L Hct (37 - 47 %) 27.5 L 27.2 L MCV (81.0 - 99.0 FL) 84.4 84.1 MCH (27.0 - 31.0 PG) 28.9 28.9 MCHC (33.0 - 37.0 G/DL) 34.3 34.3 RDW (11.5 - 14.5 %) 15.2 H 15.2 H Plt Count (130 - 400 /CUMM) 208 199 MPV (7.4 - 10.4 FL) 9.0 8.8 Gran % (42.2 - 75.2 %) 66.3 64.9 Lymphocytes % (20.5 - 51.1 %) 19.5 L 20.5 Monocytes % (1.7 - 9.3 %) 8.1 8.7 Eosinophils % (0 - 5 %) 5.8 H 5.2 H Basophils % (0.0 - 2.0 %) 0.3 0.7 Absolute Granulocytes (1.4 - 6.5 /CUMM) 7.7 H 6.6 H Absolute Lymphocytes (1.2 - 3.4 /CUMM) 2.3 2.1 Absolute Monocytes (0.10 - 0.60 /CUMM) 0.9 H 0.9 H Absolute Eosinophils (0.0 - 0.7 /CUMM) 0.7 0.5 Absolute Basophils (0.0 - 0.2 /CUMM) 0 0.1 02/10 02/10 02/10 02/09 1705 0905 0640 2030 Chemistry Sodium (137 - 145 mmol/L) 140 Potassium (3.5 - 5.1 mmol/L) 3.3 L Chloride (98 - 107 mmol/L) 99 Carbon Dioxide (22 - 30 mmol/L) 29 Anion Gap (5 - 16) 11 BUN (7 - 17 mg/dL) 102 *H Creatinine (0.5 - 1.0 mg/dL) 3.8 H Estimated GFR (>60 ml/min) 12 L BUN/Creatinine Ratio (7 - 25 %) 26.8 H Coagulation PT (9.4 - 12.5 SEC) 24.7 H INR (0.90 - 1.19) 2.25 H APTT (25 - 37 SEC) 111 *H 107 *H 80 H Hematology CBC w Diff NO MAN DIFF REQ WBC (4.8 - 10.8 /CUMM) 10.2 RBC (4.20 - 5.40 /CUMM) 3.16 L Hgb (12.0 - 16.0 G/DL) 9.1 L Hct (37 - 47 %) 26.6 L MCV (81.0 - 99.0 FL) 84.0 MCH (27.0 - 31.0 PG) 28.9 MCHC (33.0 - 37.0 G/DL) 34.4 RDW (11.5 - 14.5 %) 14.9 H Plt Count (130 - 400 /CUMM) 187 MPV (7.4 - 10.4 FL) 10.2 Gran % (42.2 - 75.2 %) 65.5 Lymphocytes % (20.5 - 51.1 %) 21.0 Monocytes % (1.7 - 9.3 %) 7.2 Eosinophils % (0 - 5 %) 5.4 H Basophils % (0.0 - 2.0 %) 0.9 Absolute Granulocytes (1.4 - 6.5 /CUMM) 6.7 H Absolute Lymphocytes (1.2 - 3.4 /CUMM) 2.1 Absolute Monocytes (0.10 - 0.60 /CUMM) 0.7 H Absolute Eosinophils (0.0 - 0.7 /CUMM) 0.6 Absolute Basophils (0.0 - 0.2 /CUMM) 0.1
[2018-02-12 12:29] VITALS: BP 152/66
--- NOTE | 2018-02-12 15:36 | Discharge Summary ---
Hospital Course Allergies: Coded Allergies: sitagliptin (From THANG) (Severe, THROAT CLOSURE 02/05/17) Discharge Instructions General Discharge Information Code Status: Full Code Medications at Discharge Discharge Medications: Stop taking the following medications: Potassium Chloride (Potassium Chloride) 20 MEQ TAB.ER.PRT ORAL Every Morning Continue taking these medications: Febuxostat (Uloric) 40 MG TABLET 1 Tablet ORAL DAILY Qty = 30 Comments: Last Taken: 10/17/17 Time: 1025 Sevelamer Carbonate (Renvela) 800 MG TABLET 2 Tablet ORAL WITH MEALS Qty = 180 Comments: Last Taken: 10/17/17 Time: 1215 Calcitriol (Calcitriol) 0.25 MCG CAPSULE 1 Capsule ORAL DAILY Qty = 30 Comments: Last Taken: 10/17/17 Time: 1025 Ferrous Sulfate (Ferrous Sulfate) 325 MG (65 MG IRON) TABLET 1 Tablet ORAL THREE TIMES DAILY Qty = 60 Instructions: . Comments: Last Taken: 10/17/17 Time: 1025 Metoprolol Tartrate (Metoprolol Tartrate) 25 MG TABLET 37.5 Milligram ORAL TWICE DAILY Qty = 60 Instructions: . Comments: Last Taken: 10/17/17 Time: 1025 Insulin Aspart (Niacinamide) (Fiasp 100 Unit/Ml Flextouch) 100 UNIT/ML (3 ML) INSULN.PEN 0 Inject into fatty tissue 3 TIMES DAILY BEFORE MEALS Qty = 18 Instructions: .Please administer as follow: Comments: Last Taken: 10/17/17 Time: 1215 PT GIVEN NOVOLOG SLIDING SCALE 80-150 mg/dl: No change 151-200 mg/dl: Plus 1 Unit 201-250 mg/dl: Plus 2 unit 251-300 mg/dl: Plus 3 unit 301-350 mg/dl: Plus 4 unit 351-400 mg/dl: Plus 6 unit more than 400 mg/dl: plus 8 units and call your doctor Torsemide (Torsemide) 20 MG TABLET 60 Milligram ORAL Every Morning Atorvastatin Calcium (Atorvastatin Calcium) 10 MG TABLET 1 Tablet ORAL Every night Diltiazem HCl (Cardizem Cd) 300 MG CAP.ER.24H 1 Capsule ORAL DAILY Warfarin Sodium (Coumadin) 7.5 MG TABLET 1 Tablet ORAL As Directed Warfarin Sodium (Coumadin) 5 MG TABLET 1 Tablet ORAL As Directed
[2018-02-12 22:58] VITALS: BP 122/72
--- NOTE | 2018-02-13 07:00 | PN- Housestaff ---
Rex Zhang 02/13/18 0700: Subjective Follow-up For: Hypertensive Encephalopathy Acute Multiple Small Stroke History of CKD Stage 5 Tele-Events Since Last Visit: Juan is in sinus rhythm, 93, QRS 0.08, MD 0.20 and 1 PVC. Subjective: Patient was seen and examined at bedside this morning. No acute overnight events were reported. Her blood pressures have been stable ranging from 122-134 systolic and 66-72 diastolic with the most recent pressuer being 134/68. Patient was given only metoprolol 50mg last night and not a dose of hydralazine. She has also been started on Toresimide as per nephrology. Patient continues to be stable and asymptomatic. Full neuro exam shows no focal neurological deficits other than difficulty tracking finger with her eyes to the right. Patient currently on warfarin with a therapeutic INR of . She denies any chest pain, shortness of breath, palpitations, changes in vision or headaches today. Amado is anxious to go home. Review of Systems Constitutional: Denies: see HPI. Objective Last 24 Hrs of Vital Signs/I&O Vital Signs Date Time Temp Pulse Resp B/P B/P Pulse O2 O2 Flow FiO2 Mean Ox Delivery Rate 02/13 0706 97.6 76 20 134/68 100 Room Air 02/13 0000 Room Air / 2258 97.8 87 22 122/72 98 Room Air 07/02 2114 61 122/72 07/02 2114 88 122/72 07/02 1600 Room Air 07/ 1448 97.9 72 20 99 Room Air / 1437 64 126/66 07/02 1229 62 152/66 /02 0850 60 140/60 Intake & Output 02/13 1600 03 0800 / 0000 Intake Total 480 720 Output Total 1125 1100 Balance -645 -380 Intake, Oral 480 720 Number 0 0 Bowel Movements Output, Urine 1125 1100 Patient 207 lb Weight Weight Bed scale Measurement Method Physical Exam General Appearance: Alert, Oriented X3, Cooperative, No Acute Distress HEENT: Atraumatic, PERRLA (Patient difficulty tracking f), Patient having difficulty tracking eyes to finger to right side during H test Cardiovascular: Normal S1, Normal S2, No Murmurs, irregular rhythm Lungs: Clear to Auscultation, Normal Air Movement Abdomen: Normal Bowel Sounds, Soft, No Tenderness Neurological: Normal Speech, Strength at 5/5 X4 Ext, Normal Tone, Sensation Intact, Reflexes 2+, Patient walking with walker independently Extremities: No Clubbing, No Cyanosis, No Edema, Normal Pulses Vascular: Normal Pulses Current Medications: Current Medications Sig/Cole Start time Last Medication Dose Route Stop Time Status Admin Acetaminophen 650 MG .STK-MED ONE 02/12 2206 DC PO 02/12 2207 Acetaminophen 650 MG Q6P PRN 02/07 2330 AC 02/12 PO 2207 Atorvastatin Calcium 40 MG 1700 02/08 1700 AC 02/12 PO 1713 Calcitriol 0.25 MCG DAILY 02/08 0900 AC 02/12 PO 0850 Diltiazem HCl 300 MG DAILY 02/08 0900 AC 02/12 PO 0851 Docusate Sodium 100 MG DAILY NEEDED PRN 02/11 1500 AC PO Ferrous Sulfate 325 MG TID 02/08 0900 AC 02/12 PO 2103 Hydralazine HCl 50 MG TID 02/12 2100 AC PO Hydralazine HCl 100 MG TID 02/11 0900 DC 02/11 PO 1548 Insulin Aspart 0 AT BEDTIME 02/10 2100 AC SC Insulin Aspart 0 TIDAC 02/09 1200 AC 02/12 SC 1223 Metoprolol Tartrate 50 MG BID 02/10 2100 AC 02/12 PO 2114 Polyethylene Glycol 17 GM DAILY 02/11 1454 AC 02/12 PO 0851 Potassium Chloride 40 MEQ QAM 02/08 0900 DC 02/10 PO 0808 Sevelamer Carbonate 1,600 MG WM 02/08 0800 AC 02/12 PO 1713 Torsemide 60 MG DAILY 02/12 1347 AC 02/12 PO 1437 Warfarin Sodium 5 MG COUMADIN 1700 02/12 1700 DC 02/12 PO 02/12 2359 1713 Last 24 Hrs of Lab/Rayshawn Results Last 24 Hrs of Labs/Mics: Laboratory Tests 02/13/18 0645: Sodium Pending, Potassium Pending, Chloride Pending, Carbon Dioxide Pending, Anion Gap Pending, BUN Pending, Creatinine Pending, BUN/Creatinine Ratio Pending , Phosphorus Pending, PT Pending, INR Pending, CBC w Diff Pending, WBC Pending, RBC Pending, Hgb Pending, Hct Pending, MCV Pending, MCH Pending, MCHC Pending, RDW Pending, Plt Count Pending, MPV Pending Assessment/Plan Assessment: A/P: Mrs. Yao is 73 year old female with past medical history significant for atrial fibrillation on Coumadin, HfpEF, COPD not on home oxygen, insulin- dependent diabetes mellitus, CKD stage 5/ESRD due to DM & HTN, pulmonary hypertension, right external carotid stenosis, obesity. Patient was admitted to telemetry floor for hypertensive emergency and encephalopathy that resolved. Patient stroke alert and MRI demonstrating smalla cute infarcts within right MCA led to adminstration of aspirin, high intesntiy atrovastatin ,heparin IV and conitnued p.o. warfarin for A-fib. Patient being followed by cardiology and nephrology as for hypertension. Patients blood perssures are now under control. HYPERTENSION/STROKE ON MRI -Patients blood pressures continuing to improve with most recent at 134/68 -Continue on telemtry -Continue antihypertensive medications: Diltiazem 300mg daily; Metoprolol now decreased to home dose of 37.5 Hydralazine discontinued -Toresimide 60mg/day advised to be continued by nephrology as well -DVT prophylaxis addressed with INR at 2.84 CKD STAGE 5/ELECTROLYTES -Patient followed by nephrology who reccomends continuing Toresemide, calcitriol and sevelamer -Potassium level 7/3: 5 -Phosphorus Level 3: 4.3 -follow up with nephrology to restart home pottassium Patient care discussed with patient and outpatient case manager; possible discharge today as blood pressures are stable. Patients daughter an deputy county attorney in [place] and will be contacted for arrangements to pick her up to take her to her home in [place]. Regular Diet DVT Prophylaxis: patient on Warfarin; recent INR: 2.84 Code Status: Full Problem List: 1. Afib 2. Dizziness 3. Hypertensive emergency 4. Acute ischemic stroke 5. Diabetes mellitus 6. Chronic kidney disease (CKD) Pain Ratin Pain Location: N/A Pain Goal: Remain pain free Pain Plan: As per pain pathway Tomorrow's Labs & Rationales: Possible DC today DVT/Prophylaxis: early ambulation low risk Discharge Plan Discharge Disposition: home Sumit Meza 02/13/18 1153: Attending Review Statement Attending Statement Attending MD Statement: examined this patient, discuss w/resident/PA/DISPLAY ASSOCIATE, agreed w/resident/PA/DISPLAY ASSOCIATE, reviewed EMR data (avail), discussed with nursing, discussed with case mgmt Attending Assessment/Plan: Stroke- dc hydralazine and decreased metoprolol to home dose of 37.5mg bid po as pts bp is well controlled and cont on torsemide per nephrology. CKD-5 - cr of 4.1. will need f/u with nephrology as an outpatient. Possible dc today . case management will talk with daughter to see if she can be picked up today. omer pt the care plan.
[2018-02-13 07:06] VITALS: BP 134/68
[2018-02-13 08:29] LABS: ABSOLUTE BASOPHIL COUNT 0.1 /CUMM (0.0-0.2); ABSOLUTE EOSINOPHIL COUNT 0.7 /CUMM (0.0-0.7); ABSOLUTE GRANULOCYTE CT 7.7 /CUMM (1.4-6.5); ABSOLUTE LYMPH COUNT 2.4 /CUMM (1.2-3.4); ABSOLUTE MONOCYTE COUNT 0.8 /CUMM (0.10-0.60); EOSINOPHIL % 6.1 % (0-5); GRANULOCYTE % 65.5 % (42.2-75.2); HEMATOCRIT 28.7 % (37-47); MEAN CORPUSCULAR HGB 28.9 PG (27.0-31.0); MEAN CORPUSCULAR VOLUME 85.1 FL (81.0-99.0); MEAN PLATELET VOLUME 9.1 FL (7.4-10.4); PLATELET COUNT 235 /CUMM (130-400); RBC DISTRIBUTION WIDTH 15.6 % (11.5-14.5); RED BLOOD CELL CT 3.37 /CUMM (4.20-5.40); WHITE BLOOD CELL COUNT 11.7 /CUMM (4.8-10.8)
[2018-02-13 08:41] LABS: PT 31.3 SEC (9.4-12.5)
--- NOTE | 2018-02-13 12:26 | PN- Cardiology ---
Subjective Subjective: No complaints. Blood pressure under better control. Objective Vital Signs and I&Os Vital Signs Date Time Temp Pulse Resp B/P B/P Pulse O2 O2 Flow FiO2 Mean Ox Delivery Rate 02/13 1147 72 134/68 /03 0800 100 Room Air 07/03 0706 97.6 76 20 134/68 100 Room Air /03 0000 Room Air 02/12 2258 97.8 87 22 122/72 98 Room Air / 2114 61 122/72 / 2114 88 122/72 / 1600 Room Air 02/12 1448 97.9 72 20 99 Room Air 02/12 1437 64 126/66 Intake & Output 02/13 1600 02/13 0800 02/13 0000 02/12 1600 02/12 0800 02/12 0000 Intake Total 480 720 600 740 Output Total 1125 1100 700 500 Balance -645 -380 -100 240 Intake, IV 40 Intake, Oral 480 720 560 740 Number 0 0 1 Bowel Movements Output, Urine 1125 1100 700 500 Patient 207 lb 211 lb 211 lb Weight Weight Bed scale Measurement Method Physical Exam: Overweight elderly female in no acute distress. Vital signs: See above. HEENT: Normocephalic, atraumatic, EOMI, slightly dry mucous membranes. Neck: No JVD, bilateral carotid bruits vs transmitted systolic murmur. Lungs: Decreased breath sounds otherwise clear. Heart: S1, S2 (regular) with soft (grade 1-2/6) systolic murmur. Abdomen: Soft, nontender, positive bowel sounds. Extremities: 1-2+ bilateral lower extremity edema. Current Medications: Current Medications Sig/Cole Start time Last Medication Dose Route Stop Time Status Admin Acetaminophen 650 MG .STK-MED ONE 02/12 220 DC PO 02/12 2207 Acetaminophen 650 MG Q6P PRN 02/07 2330 AC 02/12 PO 220 Atorvastatin Calcium 40 MG 1700 02/08 1700 AC 02/12 PO 1713 Calcitriol 0.25 MCG DAILY 02/08 09 AC 02/13 PO 0956 Diltiazem HCl 300 MG DAILY 02/08 09 AC 02/13 PO 0956 Docusate Sodium 100 MG DAILY NEEDED PRN 02/11 1500 AC PO Febuxostat 40 MG DAILY 02/13 1100 AC 02/13 PO 1147 Ferrous Sulfate 325 MG TID 02/08 0900 AC 02/13 PO 0956 Hydralazine HCl 50 MG TID 02/12 2100 DC PO Hydralazine HCl 100 MG TID 02/11 0900 DC 02/11 PO 1548 Insulin Aspart 0 AT BEDTIME 02/10 2100 AC SC Insulin Aspart 0 TIDAC 02/09 1200 AC 02/13 SC 1213 Metoprolol Tartrate 37.5 MG BID 02/13 2100 DC PO Metoprolol Tartrate 37.5 MG BID 02/13 1030 AC 02/13 PO 1147 Metoprolol Tartrate 50 MG BID 02/10 2100 DC 02/12 PO 2114 Polyethylene Glycol 17 GM DAILY 02/11 1454 AC 02/12 PO 0851 Potassium Chloride 40 MEQ QAM 02/08 0900 DC 02/10 PO 0808 Sevelamer Carbonate 1,600 MG WM 02/08 0800 AC 02/13 PO 1212 Torsemide 60 MG DAILY 02/12 1347 AC 02/13 PO 0956 Warfarin Sodium 5 MG COUMADIN 1700 ONE 02/13 1700 AC PO 02/13 1701 Warfarin Sodium 5 MG COUMADIN 1700 02/12 1700 DC 02/12 PO 02/12 2359 1713 Results Last 48 Hrs of Labs/Mics: Laboratory Tests 02/13/18 0645: Anion Gap 12, Estimated GFR 11 L, BUN/Creatinine Ratio 21.0, Phosphorus 4.3, PT 31.3 H, INR 2.84 H, CBC w Diff NO MAN DIFF REQ, RBC 3.37 L, MCV 85.1, MCH 28.9, MCHC 34.0, RDW 15.6 H, MPV 9.1, Gran % 65.5, Lymphocytes % 20.2 L, Monocytes % 7.2, Eosinophils % 6.1 H, Basophils % 1.0, Absolute Granulocytes 7.7 H, Absolute Lymphocytes 2.4, Absolute Monocytes 0.8 H, Absolute Eosinophils 0.7, Absolute Basophils 0.1 02/12/18 0622: Anion Gap 10, Estimated GFR 11 L, BUN/Creatinine Ratio 21.5, PT 30.3 H, INR 2.75 H, CBC w Diff NO MAN DIFF REQ, RBC 3.25 L, MCV 84.4, MCH 28.9, MCHC 34.3, RDW 15.2 H, MPV 9.0, Gran % 66.3, Lymphocytes % 19.5 L, Monocytes % 8.1, Eosinophils % 5.8 H, Basophils % 0.3, Absolute Granulocytes 7.7 H, Absolute Lymphocytes 2.3, Absolute Monocytes 0.9 H, Absolute Eosinophils 0.7, Absolute Basophils 0 Assessment/Plan Assessment/Plan [id number] w/ hx of gout, HLD, HTN, DM, CKD s/p RUE AV fistula w/o use necessity , ch anemia on an RITO, & PAF s/p electrical CV following [facility] ~2015 w/ recurrence & successful antiarrhythmic Rx w/ chem CV ~2017 w/ several adms ( 08/23-09/01/2017; 09/09-09/19/2017; 10/05-10/17/2017) for AF w/ RVR rates & acute on chronic diastolic HF (HFpEF) who presented 02/07/2018 a.m. from her PCP 's office w/ AMS, fatigue, & hypertensive emergency (233/100 mmHg) after not taking her hypertensive meds at home w/ improved clinical status and VSs after IV hydralazine/IV metoprolol who had a run of atrial flutter w/ 2:1 block earlier and subsequent to that had neurological events for which "stroke alert" called who now is improved s/p multiple small strokes 2/2 hypertensive emergency vs shower of emboli from AF w/ mild residual clinical deficits. Blood pressure under good control on her present antihypertensive regimen ( metoprolol 37.5 mg twice daily, hydralazine 100 mg 3 times daily, torsemide 60 mg daily, diltiazem CD 300 mg daily). Recommendations: * Continue present antihypertensive regimen. * Continue statin for dyslipidemia. * Follow-up on nephrology recommendations. * Continue DVT prophylaxis. Continue telemetry? No
--- NOTE | 2018-02-13 13:07 | PN- Nephrology ---
Assessment/Plan Nephrology Assessment: CKD stage 5: Due to DM/HTN. No need for dialysis currently. Hyperkalemia: Improved with DC of KCL supplements and with restarting torsemide. Would keep off the potassium supplement and arrange for repeat labs in 1 week. h/o CHF: Continue torsemide 60 mg/day (was resumed yesterday). Anemia of CKD: Favor not starting Procrit (or similar) at this time as Hb in 9s & given CVA. RITO agents are associated with increase risk of CVA if Hb increases to 13 while on these agents. Renal BMM: continue sevelamer & calcitriol. phos level ok at 4.3. Suggestion: as above would arrange BMP in 1 week & f/up with PMD pt scheduled to see Dr Chang in 2 months (April) Subjective Subjective: No acute events feels well K down to 5.0 Review of Systems: no sob/chest pain no fever/chills Objective Vital Signs and I&Os Vital Signs Date Time Temp Pulse Resp B/P B/P Pulse O2 O2 Flow FiO2 Mean Ox Delivery Rate 02/13 1147 72 134/68 07/03 0800 100 Room Air 07/03 0706 97.6 76 20 134/68 100 Room Air 07/03 0000 Room Air / 2258 97.8 87 22 122/72 98 Room Air 07/02 2114 61 122/72 07/02 2114 88 122/72 07/02 1600 Room Air 07/ 1448 97.9 72 20 99 Room Air 07/02 1437 64 126/66 Intake & Output 02/13 1600 02/13 0400 02/12 1600 02/12 0400 02/11 1600 02/11 0400 Intake Total 480 720 600 740 980 485 Output Total 900 1325 700 500 975 450 Balance -420 -605 -100 240 5 35 Intake, IV 40 45 Intake, Oral 480 720 560 740 980 440 Number 0 0 1 0 0 Bowel Movements Output, Urine 900 1325 700 500 975 450 Patient 207 lb 211 lb 211 lb 203 lb Weight Weight Bed scale Bed scale Measurement Method Physical Exam: nad ctab trace edema +chronic venous changes in legs s1 s2 RUE AVF+thrill/bruit Current Medications: Current Medications Sig/Cole Start time Last Medication Dose Route Stop Time Status Admin Acetaminophen 650 MG .STK-MED ONE 02/12 2206 DC PO 02/12 2207 Acetaminophen 650 MG Q6P PRN 02/07 2330 AC 02/12 PO 220 Atorvastatin Calcium 40 MG 1700 02/08 1700 AC 02/12 PO 1713 Calcitriol 0.25 MCG DAILY 02/08 0900 AC 02/13 PO 0956 Diltiazem HCl 300 MG DAILY 02/08 0900 AC 02/13 PO 0956 Docusate Sodium 100 MG DAILY NEEDED PRN 02/11 1500 AC PO Febuxostat 40 MG DAILY 02/13 1100 AC 02/13 PO 1147 Ferrous Sulfate 325 MG TID 02/08 09 AC 02/13 PO 0956 Hydralazine HCl 50 MG TID 02/12 2100 DC PO Hydralazine HCl 100 MG TID 02/11 0900 DC 02/11 PO 1548 Insulin Aspart 0 AT BEDTIME 02/10 2100 AC SC Insulin Aspart 0 TIDAC 02/09 1200 AC 02/13 SC 1213 Metoprolol Tartrate 37.5 MG BID 02/13 2100 DC PO Metoprolol Tartrate 37.5 MG BID 02/13 1030 AC 02/13 PO 1147 Metoprolol Tartrate 50 MG BID 02/10 2100 DC 02/12 PO 2114 Polyethylene Glycol 17 GM DAILY 02/11 1454 AC 02/12 PO 0851 Potassium Chloride 40 MEQ QAM 02/08 09 DC 02/10 PO 0808 Sevelamer Carbonate 1,600 MG WM 02/08 0800 AC 02/13 PO 1212 Torsemide 60 MG DAILY 02/12 1347 AC 02/13 PO 0956 Warfarin Sodium 5 MG COUMADIN 1700 ONE 02/13 170 AC PO 02/13 170 Warfarin Sodium 5 MG COUMADIN 1700 02/12 1700 DC 02/12 PO 02/12 2359 1713 Results Pertinent Lab Results: Laboratory Tests 02/13 07 0645 0622 Chemistry Sodium (137 - 145 mmol/L) 141 142 Potassium (3.5 - 5.1 mmol/L) 5.0 5.5 H Chloride (98 - 107 mmol/L) 104 106 Carbon Dioxide (22 - 30 mmol/L) 25 26 Anion Gap (5 - 16) 12 10 BUN (7 - 17 mg/dL) 86 H 88 H Creatinine (0.5 - 1.0 mg/dL) 4.1 H 4.1 H Estimated GFR (>60 ml/min) 11 L 11 L BUN/Creatinine Ratio (7 - 25 %) 21.0 21.5 Phosphorus (2.5 - 4.5 mg/dL) 4.3 Coagulation PT (9.4 - 12.5 SEC) 31.3 H 30.3 H INR (0.90 - 1.19) 2.84 H 2.75 H Hematology CBC w Diff NO MAN DIFF REQ NO MAN DIFF REQ WBC (4.8 - 10.8 /CUMM) 11.7 H 11.6 H RBC (4.20 - 5.40 /CUMM) 3.37 L 3.25 L Hgb (12.0 - 16.0 G/DL) 9.7 L 9.4 L Hct (37 - 47 %) 28.7 L 27.5 L MCV (81.0 - 99.0 FL) 85.1 84.4 MCH (27.0 - 31.0 PG) 28.9 28.9 MCHC (33.0 - 37.0 G/DL) 34.0 34.3 RDW (11.5 - 14.5 %) 15.6 H 15.2 H Plt Count (130 - 400 /CUMM) 235 208 MPV (7.4 - 10.4 FL) 9.1 9.0 Gran % (42.2 - 75.2 %) 65.5 66.3 Lymphocytes % (20.5 - 51.1 %) 20.2 L 19.5 L Monocytes % (1.7 - 9.3 %) 7.2 8.1 Eosinophils % (0 - 5 %) 6.1 H 5.8 H Basophils % (0.0 - 2.0 %) 1.0 0.3 Absolute Granulocytes (1.4 - 6.5 /CUMM) 7.7 H 7.7 H Absolute Lymphocytes (1.2 - 3.4 /CUMM) 2.4 2.3 Absolute Monocytes (0.10 - 0.60 /CUMM) 0.8 H 0.9 H Absolute Eosinophils (0.0 - 0.7 /CUMM) 0.7 0.7 Absolute Basophils (0.0 - 0.2 /CUMM) 0.1 0 07/02/10 0620 1705 Chemistry Sodium (137 - 145 mmol/L) 141 Potassium (3.5 - 5.1 mmol/L) 4.7 Chloride (98 - 107 mmol/L) 103 Carbon Dioxide (22 - 30 mmol/L) 26 Anion Gap (5 - 16) 12 BUN (7 - 17 mg/dL) 97 H Creatinine (0.5 - 1.0 mg/dL) 3.7 H Estimated GFR (>60 ml/min) 12 L BUN/Creatinine Ratio (7 - 25 %) 26.2 H Coagulation PT (9.4 - 12.5 SEC) 27.3 H INR (0.90 - 1.19) 2.48 H APTT (25 - 37 SEC) 111 *H Hematology CBC w Diff NO MAN DIFF REQ WBC (4.8 - 10.8 /CUMM) 10.2 RBC (4.20 - 5.40 /CUMM) 3.24 L Hgb (12.0 - 16.0 G/DL) 9.4 L Hct (37 - 47 %) 27.2 L MCV (81.0 - 99.0 FL) 84.1 MCH (27.0 - 31.0 PG) 28.9 MCHC (33.0 - 37.0 G/DL) 34.3 RDW (11.5 - 14.5 %) 15.2 H Plt Count (130 - 400 /CUMM) 199 MPV (7.4 - 10.4 FL) 8.8 Gran % (42.2 - 75.2 %) 64.9 Lymphocytes % (20.5 - 51.1 %) 20.5 Monocytes % (1.7 - 9.3 %) 8.7 Eosinophils % (0 - 5 %) 5.2 H Basophils % (0.0 - 2.0 %) 0.7 Absolute Granulocytes (1.4 - 6.5 /CUMM) 6.6 H Absolute Lymphocytes (1.2 - 3.4 /CUMM) 2.1 Absolute Monocytes (0.10 - 0.60 /CUMM) 0.9 H Absolute Eosinophils (0.0 - 0.7 /CUMM) 0.5 Absolute Basophils (0.0 - 0.2 /CUMM) 0.1
[2018-02-13 14:44] VITALS: BP 138/70
[2018-02-13 23:01] VITALS: BP 142/70
[2018-02-14 07:00] VITALS: BP 130/70
[2018-02-14 07:30] LABS: ABSOLUTE BASOPHIL COUNT 0.1 /CUMM (0.0-0.2); ABSOLUTE EOSINOPHIL COUNT 0.6 /CUMM (0.0-0.7); ABSOLUTE GRANULOCYTE CT 7.1 /CUMM (1.4-6.5); ABSOLUTE MONOCYTE COUNT 0.9 /CUMM (0.10-0.60); BASOPHIL % 0.8 % (0.0-2.0); EOSINOPHIL % 5.9 % (0-5); GRANULOCYTE % 66.8 % (42.2-75.2); HEMATOCRIT 26.2 % (37-47); MEAN CORPUSCULAR HGB 28.7 PG (27.0-31.0); MEAN CORPUSCULAR HGB CONC 33.7 G/DL (33.0-37.0); MEAN CORPUSCULAR VOLUME 85.3 FL (81.0-99.0); PLATELET COUNT 209 /CUMM (130-400); RBC DISTRIBUTION WIDTH 14.8 % (11.5-14.5); RED BLOOD CELL CT 3.07 /CUMM (4.20-5.40); WHITE BLOOD CELL COUNT 10.7 /CUMM (4.8-10.8)
--- NOTE | 2018-02-14 08:02 | PN- Housestaff ---
See Addendum Subjective Follow-up For: Hypertensive Encephalopathy Acute Multiple Stroke History of CKD Stage 5 Tele-Events Since Last Visit: Acc. Junctional, 64 hr, QRS 0.10, [place] Varies Subjective: Patient was seen and examined at bedside this morning. No acute overnight events were reported. Her blood pressures have been stable with most recent being 130/ 70. Patient was given only metoprolol 50mg last night and not a dose of hydralazine. She has also been started on Toresimide as per nephrology. Patient continues to be stable and asymptomatic. Full neuro exam shows no focal neurological deficits other than difficulty tracking finger with her eyes to the right. Patient currently on warfarin with a therapeutic INR of . She denies any chest pain, shortness of breath, palpitations, changes in vision or headaches today. Patietn is anxious to go home. Review of Systems Constitutional: Denies: see HPI. Objective Last 24 Hrs of Vital Signs/I&O Vital Signs Date Time Temp Pulse Resp B/P B/P Pulse O2 O2 Flow FiO2 Mean Ox Delivery Rate 02/14 0814 130/70 02/14 0700 98.1 67 20 130/70 97 Room Air 02/13 2301 98.3 78 20 142/70 100 Room Air 02/13 2129 69 142/70 07/ 1444 97.6 58 18 138/70 100 Room Air Intake & Output 02/14 1600 / 0800 02/14 0000 Intake Total 240 720 Output Total 550 300 Balance -310 420 Intake, Oral 240 720 Number 0 0 Bowel Movements Output, Urine 550 300 Patient 208 lb Weight Physical Exam General Appearance: Alert, Oriented X3, Cooperative, No Acute Distress HEENT: Atraumatic, PERRLA, EOMI Neck: No JVD Cardiovascular: Regular Rate, Normal S1, Normal S2, No Murmurs Lungs: Clear to Auscultation, Normal Air Movement Abdomen: Normal Bowel Sounds, Soft, No Tenderness Neurological: Normal Speech, Strength at 5/5 X4 Ext, Normal Tone, Sensation Intact, Reflexes 2+ Extremities: No Clubbing, No Cyanosis, Normal Pulses, +1 edema bilateral lower extremities Vascular: Normal Pulses, Pulses Symmetrical Current Medications: Current Medications Sig/Cole Start time Last Medication Dose Route Stop Time Status Admin Acetaminophen 650 MG Q6P PRN 02/07 2330 AC 02/14 PO 0418 Atorvastatin Calcium 40 MG 1700 02/08 1700 AC 02/13 PO 1728 Calcitriol 0.25 MCG DAILY 02/08 0900 AC 02/14 PO 0814 Diltiazem HCl 300 MG DAILY 02/08 0900 AC 02/14 PO 0814 Docusate Sodium 100 MG DAILY NEEDED PRN 02/11 1500 AC PO Febuxostat 40 MG DAILY 02/13 1100 AC 02/14 PO 0814 Ferrous Sulfate 325 MG TID 02/08 0900 AC 02/14 PO 0814 Insulin Aspart 0 AT BEDTIME 02/10 2100 AC SC Insulin Aspart 0 TIDAC 02/09 1200 AC 02/14 SC 0814 Metoprolol Tartrate 37.5 MG BID 02/13 1030 AC 02/14 PO 0814 Polyethylene Glycol 17 GM DAILY 02/11 1454 AC 02/12 PO 0851 Sevelamer Carbonate 1,600 MG WM 02/08 0800 AC 02/14 PO 0814 Torsemide 60 MG DAILY 02/12 1347 AC 02/14 PO 0814 Warfarin Sodium 5 MG COUMADIN 1700 ONE 02/13 1700 DC 02/13 PO 02/13 1701 1727 Last 24 Hrs of Lab/Rayshawn Results Last 24 Hrs of Labs/Mics: Laboratory Tests 02/14/18 0618: Anion Gap 12, Estimated GFR 10 L, BUN/Creatinine Ratio 21.4, PT 34.4 H, INR 3.12 H, CBC w Diff NO MAN DIFF REQ, RBC 3.07 L, MCV 85.3, MCH 28.7, MCHC 33.7, RDW 14.8 H, MPV 9.0, Gran % 66.8, Lymphocytes % 18.3 L, Monocytes % 8.2, Eosinophils % 5.9 H, Basophils % 0.8, Absolute Granulocytes 7.1 H, Absolute Lymphocytes 2.0, Absolute Monocytes 0.9 H, Absolute Eosinophils 0.6, Absolute Basophils 0.1 Assessment/Plan Assessment: A/P: Mrs. Yao is 73 year old female with past medical history significant for atrial fibrillation on Coumadin, HfpEF, COPD not on home oxygen, insulin- dependent diabetes mellitus, CKD stage 5/ESRD due to DM & HTN, pulmonary hypertension, right external carotid stenosis, obesity. Patient was admitted to telemetry floor for hypertensive emergency and encephalopathy that resolved. Patient stroke alert and MRI demonstrating smalla cute infarcts within right MCA led to adminstration of aspirin, high intesntiy atrovastatin ,heparin IV and conitnued p.o. warfarin for A-fib. Patient for discharge today to home health services. Will be picked up by daughter. HYPERTENSION/STROKE ON MRI * BP stabilized; 130/70 * Continue antihypertensive regimen: Diltiazem 300mg; Metoprolol to home dose of 37.5; Hydralazine discontinued * Toresimide 60mg/day as per nephrology * INR currently >3; will hold off Warfarin for now; advised to hold until follow up care CKD STAGE 5 * Arrange BMP in 1 week & f/up with PMD scheduled to see Dr Chang in 2 months (April) * Advised to continue pottasium after followup with PCP/nephrology Regular Diet DVT PPx: Ambulating; off warfarin INR>3; Patient to be discharged home today Code Status: Full Code Problem List: 1. Chronic kidney disease (CKD) 2. Afib 3. Diabetes mellitus 4. Acute ischemic stroke 5. Hypertension Pain Ratin Pain Location: N/A Pain Goal: Pain 4 or less Pain Plan: As per pain pathway Tomorrow's Labs & Rationales: Patient for discharge to home health services today Discharge Plan Discharge Disposition: Home health services Stable for Discharge? Yes Anticipated Discharge (Day): today If Discharged Today/In 24 Hrs: -/discharge paper done
[2018-02-14 08:14] VITALS: BP 130/70
[2018-02-14 08:14] LABS: PT 34.4 SEC (9.4-12.5)
--- NOTE | 2018-02-14 11:45 | PN- Cardiology ---
Subjective Subjective: feeling well, no complaints, no acute events overnight. Objective Vital Signs and I&Os Vital Signs Date Time Temp Pulse Resp B/P B/P Pulse O2 O2 Flow FiO2 Mean Ox Delivery Rate 02/14 814 130/70 02/14 07 98.1 67 20 130/70 97 Room Air 02/13 2301 98.3 78 20 142/70 100 Room Air 02/13 2129 69 142/70 02/13 1444 97.6 58 18 138/70 100 Room Air 02/13 1147 72 134/68 Intake & Output 02/14 1600 02/14 0800 02/14 0000 02/13 1600 02/13 0802/13 0000 Intake Total 240 720 820 480 720 Output Total 550 237 703 1950 1100 Balance -310 420 270 -645 -380 Intake, Oral 240 720 820 480 720 Number 0 0 0 0 Bowel Movements Output, Urine 550 673 326 0272 1100 Patient 208 lb 207 lb Weight Weight Bed scale Measurement Method Physical Exam: no acute distress. HEENT: Normocephalic, atraumatic, EOMI, slightly dry mucous membranes. Neck: No JVD, bilateral carotid bruits vs transmitted systolic murmur. Lungs: Decreased breath sounds otherwise clear. Heart: S1, S2 (regular) with soft (grade 1-2/6) systolic murmur. Abdomen: Soft, nontender, positive bowel sounds. Extremities: 1-2+ bilateral lower extremity edema. Current Medications: Current Medications Sig/Cole Start time Last Medication Dose Route Stop Time Status Admin Acetaminophen 650 MG Q6P PRN 02/07 2330 AC 02/14 PO 0418 Atorvastatin Calcium 40 MG 1700 02/08 1700 AC 02/13 PO 1728 Calcitriol 0.25 MCG DAILY 02/08 09 AC 02/14 PO 0814 Diltiazem HCl 300 MG DAILY 02/08 09 AC 02/14 PO 0814 Docusate Sodium 100 MG DAILY NEEDED PRN 02/11 1500 AC PO Febuxostat 40 MG DAILY 02/13 1100 AC 02/14 PO 0814 Ferrous Sulfate 325 MG TID 02/08 09 AC 02/14 PO 0814 Insulin Aspart 0 AT BEDTIME 02/10 2100 AC SC Insulin Aspart 0 TIDAC 02/09 1200 AC 02/14 SC 0814 Metoprolol Tartrate 37.5 MG BID 02/13 1030 AC 02/14 PO 0814 Polyethylene Glycol 17 GM DAILY 02/11 1454 AC 02/12 PO 0851 Sevelamer Carbonate 1,600 MG WM 02/08 0800 AC 02/14 PO 0814 Torsemide 60 MG DAILY 02/12 1347 AC 02/14 PO 0814 Warfarin Sodium 5 MG COUMADIN 1700 ONE 02/13 1700 DC 02/13 PO 02/13 1701 1727 Results Last 48 Hrs of Labs/Mics: Laboratory Tests 02/14/18 0618: Anion Gap 12, Estimated GFR 10 L, BUN/Creatinine Ratio 21.4, PT 34.4 H, INR 3.12 H, CBC w Diff NO MAN DIFF REQ, RBC 3.07 L, MCV 85.3, MCH 28.7, MCHC 33.7, RDW 14.8 H, MPV 9.0, Gran % 66.8, Lymphocytes % 18.3 L, Monocytes % 8.2, Eosinophils % 5.9 H, Basophils % 0.8, Absolute Granulocytes 7.1 H, Absolute Lymphocytes 2.0, Absolute Monocytes 0.9 H, Absolute Eosinophils 0.6, Absolute Basophils 0.1 02/13/18 0645: Anion Gap 12, Estimated GFR 11 L, BUN/Creatinine Ratio 21.0, Phosphorus 4.3, PT 31.3 H, INR 2.84 H, CBC w Diff NO MAN DIFF REQ, RBC 3.37 L, MCV 85.1, MCH 28.9, MCHC 34.0, RDW 15.6 H, MPV 9.1, Gran % 65.5, Lymphocytes % 20.2 L, Monocytes % 7.2, Eosinophils % 6.1 H, Basophils % 1.0, Absolute Granulocytes 7.7 H, Absolute Lymphocytes 2.4, Absolute Monocytes 0.8 H, Absolute Eosinophils 0.7, Absolute Basophils 0.1 Assessment/Plan Assessment/Plan [id number] w/ hx of gout, HLD, HTN, DM, CKD s/p RUE AV fistula w/o use necessity , ch anemia on an RITO, & PAF s/p electrical CV following CARI ~2015 w/ recurrence & successful antiarrhythmic Rx w/ chem CV ~2016 w/ several GH adms ( 08/23-09/01/2017; 09/09-09/19/2017; 10/05-10/17/2017) for AF w/ RVR rates & acute on chronic diastolic HF (HFpEF) who presented 02/07/2018 a.m. from her PCP 's office w/ AMS, fatigue, & hypertensive emergency (233/100 mmHg) after not taking her hypertensive meds at home w/ improved clinical status and VSs after IV hydralazine/IV metoprolol who had a run of atrial flutter w/ 2:1 block earlier and subsequent to that had neurological events for which "stroke alert" called who now is improved s/p multiple small strokes 2/2 hypertensive emergency vs shower of emboli from AF w/ mild residual clinical deficits. Blood pressure under good control on her present antihypertensive regimen ( metoprolol 37.5 mg twice daily, hydralazine 100 mg 3 times daily, torsemide 60 mg daily, diltiazem CD 300 mg daily).no change in medication from a cardiology standpoint. Continue telemetry? No
== END 2018-02-14 12:45 | disposition home health service (06) | DRG 304 ==
LOC: ERH 15:55 → 1NO 23:08 → ERHI 23:08 → ENRESERV 23:58 → 1NO 02-08 00:23 → ENPENDDIS 02-14 12:08 → ENTRNSPT 02-14 12:18 → 1NO 02-14 12:45 → EDTRNSPT 02-14 12:47 → EDTRNSPTSTS 02-14 12:47 → CMPTRNSPT 02-14 12:57
PROVIDERS: Hospitalist; Internal Medicine; Internal Medicine Interventional Cardiology; Physical Medicine & Rehabilitation Pain Medicine; Student in an Organized Health Care Education/Training Program
DX: I16.1 Hypertensive emergency (principal); I63.9 Cerebral infarction, unspecified; I67.4 Hypertensive encephalopathy; I50.30 Unspecified diastolic (congestive) heart failure; N18.4 Chronic kidney disease, stage 4 (severe); N25.81 Secondary hyperparathyroidism of renal origin; N18.5 Chronic kidney disease, stage 5; I50.32 Chronic diastolic (congestive) heart failure; I13.2 Hypertensive heart and chronic kidney disease with heart failure and with stage 5 chronic kidney disease, or end stage renal disease; E11.22 Type 2 diabetes mellitus with diabetic chronic kidney disease; Z79.4 Long term (current) use of insulin; I48.91 Unspecified atrial fibrillation; Z79.01 Long term (current) use of anticoagulants; I27.20 Pulmonary hypertension, unspecified; E11.21 Type 2 diabetes mellitus with diabetic nephropathy; D63.1 Anemia in chronic kidney disease; E78.5 Hyperlipidemia, unspecified; E66.9 Obesity, unspecified; Z68.29 Body mass index [BMI] 29.0-29.9, adult; E87.5 Hyperkalemia; H53.8 Other visual disturbances; Z88.8 Allergy status to other drugs, medicaments and biological substances; Z91.14 Patient's other noncompliance with medication regimen; R79.1 Abnormal coagulation profile
CPT/HCPCS: 1NSP; 70551; ERO; 36592; 71046; 76775; 80307; 81001; 82436; 93005; 93010; 93306; 94799; 96374; 96375; 96376; 97110-GO; 97116-GO; 97162-GP; 97165-GO; 97530-GO; J0360; J1644; J3490; J7060

== ENCOUNTER 2018-02-16 17:20 | Emergency (ER) | payer OTHER, MEDICARE ==
[~2018-02-16] VITALS: Ht 175.3 cm; Wt 86.2 kg
[~2018-02-16 17:20] MED LIST changes: +ATORVASTATIN CA10 M1 PO; +CARDIZEM CD300 M1 PO; +POTASSIUM CHLO20 ME2 PO
--- NOTE | 2018-02-16 17:56 | ED MVC/FALL/TRAUMA COMPLAINT ---
History of Present Illness General Chief Complaint: Fall Stated Complaint: FALL/L HIP Source: patient Exam Limitations: no limitations Vital Signs & Intake/Output Vital Signs & Intake/Output Vital Signs Date Time Temp Pulse Resp B/P B/P Pulse O2 O2 Flow FiO2 Mean Ox Delivery Rate 02/16 2239 Room Air 02/16 2126 61 14 148/65 100 Room Air 02/16 2015 97.5 52 18 138/62 100 Room Air 02/16 1800 Room Air 02/16 1729 97.6 54 16 151/65 99 Room Air ED Intake and Output 02/17 0000 02/16 1200 Intake Total 0 Output Total 200 Balance -200 Intake, Oral 0 Output, Urine 200 Patient 190 lb Weight Weight Reported by Patient Measurement Method Allergies Coded Allergies: sitagliptin (From [facility]) (Severe, THROAT CLOSURE 02/05/17) Triage Note: BIBA FROM HOME S/P SLIP AND FALL IN KITCHEN WHILE PEELING POTATOES AT COUNTER. FELL ON TO LEFT SIDE. NOW WITH LEFT SIDE HIP PAIN AND SHORTENING AND ROTATION TO LEFT LEG. LEFT FOOT WARM, +MOVEMENT AND SENSATION. AWAKE, ALERT, ORIENTED TO PERSON, PLACE BUT NO TIME. SKIN WARM AND DRY. Triage Nurses Notes Reviewed? yes Onset: Abrupt Duration: minute(s): Severity: severe Injuries/Fall Location: lower extremity Method of Injury: fall Loss of Consciousness: no loss of consciousness Modifying Factors: Worsens With: movement. HPI: Patient presents for evaluation of injury sustained status post fall prior to arrival. Patient was making potato salad in the kitchen and she slipped on a potato. She then had abrupt onset of severe left hip and thigh pain. Patient was recently admitted for a stroke. She has a residual expressive aphasia and facial droop. (Marielle BARBOUR,Kalyan Gregory) Reconcile Medications Atorvastatin Calcium 10 MG TABLET 1 TAB PO QPM CHOLESTEROL (Reported) Calcitriol 0.25 MCG CAPSULE 1 CAP PO DAILY SUPPLEMENT (Reported) Diltiazem HCl (Cardizem Cd) 300 MG CAP.ER.24H 1 CAP PO DAILY HEART/BP ( Reported) Febuxostat (Uloric) 40 MG TABLET 1 TAB PO DAILY GOUT (Reported) Ferrous Sulfate 325 MG (65 MG IRON) TABLET 1 TAB PO TID Iron storage . Insulin Aspart (Niacinamide) (Fiasp 100 Unit/Ml Flextouch) 100 UNIT/ML (3 ML) INSULN.PEN 0 SC TIDAC blood sugar .Please administer as follow: Metoprolol Tartrate 25 MG TABLET 37.5 MG PO BID [employer] . Potassium Chloride (Unknown Strength) TAB.ER.PRT (Unknown Dose) UNKNOWN ( Reported) Sevelamer Carbonate (Renvela) 800 MG TABLET 2 TAB PO WM CKD Torsemide 20 MG TABLET 60 MG PO QAM DIURETIC (Reported) Warfarin Sodium (Coumadin) 5 MG TABLET 1 TAB PO AD BLOOD THINNER (Reported) Warfarin Sodium (Coumadin) 7.5 MG TABLET 1 TAB PO AD BLOOD THINNER (Reported) (Agustina BARBOUR,Salty Rueda) Past History Travel History Traveled to [place] past 21 day No Medical History Any Pertinent Medical History? see below for history Neurological: NONE EENT: NONE Cardiovascular: AFIB (refuses/ not started on antico), aflutter, hypertension Respiratory: NONE Gastrointestinal: NONE Hepatic: NONE Renal: chronic kidney disease, CKD biopsy-proven diabetic/hypertensive nephropathy R.ARM AVF Musculoskeletal: gout Psychiatric: NONE Endocrine: diabetes, obesity, she reports that her diabetes has been referred for roughly 10 years. She denies any retinopathy. 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 No (Marielle BARBOUR,Kalyan Gregory) Review of Systems Review of Systems Constitutional: Reports: no symptoms. Eyes: Reports: no symptoms. Ears, Nose, Throat, Mouth: Reports: no symptoms. Respiratory: Reports: no symptoms. Cardiovascular: Reports: no symptoms. Gastrointestinal/Abdominal: Reports: no symptoms. Genitourinary: Reports: no symptoms. Musculoskeletal: Reports: see HPI. Skin: Reports: no symptoms. Neurological/Psychological: Reports: no symptoms. All Other Systems: Reviewed and Negative (Kalyan Palomares MD) Physical Exam Physical Exam General Appearance: SEE BELOW Comments: Gen.: Well-nourished, well-developed, no acute respiratory distress. Head: Normocephalic, atraumatic. Eyes: Normal inspection bilaterally, possible left-sided neglect Ears: Normal inspection bilaterally Nose: Normal inspection Face: Mild to moderate left facial droop Throat/mouth : Moist mucosa Neck: Supple, full range of motion, no goiter Heart: Regular rate and rhythm, no murmurs rubs or gallops Lungs: Clear to auscultation bilaterally with normal air entry Chest: Nontender Back: Normal range of motion Abdomen: Soft, nontender, nondistended, normal bowel sounds Extremities: No spontaneous movement of the left lower extremity secondary to pain, tenderness in the area of the proximal thigh and hip. The left lower cavity is neurovascularly intact distally. Neurologic: Left facial droop, mildly slurred speech Skin: warm and dry Psychiatric: Calm, cooperative, no apparent delusions or hallucinations (Marielle BARBOUR,Kalyan Gregory) Core Measures ACS in differential dx? No CVA/TIA Diagnosis No Sepsis Present: No Sepsis Focused Exam Completed? No (Agustina BARBOUR,Salty Rueda) Progress Plan of Care: Orders Procedure Date/time Status ARTERIAL BLOOD GAS (GEN) 02/16 2103 Complete URINALYSIS 02/16 1807 Complete PROTHROMBIN TIME 02/16 1807 Complete COMPREHENSIVE METABOLIC PANEL 02/16 1807 Complete CBC WITHOUT DIFFERENTIAL 02/16 1807 Complete EKG 02/16 1807 Active Laboratory Tests 02/16/182124: pH 7.44, pCO2 33 L, pO2 93, HCO3 22, ABG O2 Sat (Measured) 96.0, P-50 (Temp Corrected) N, Carboxyhemoglobin 0.3 L, O2 Concentration % R/A, Temperature 97.5 , Phlebotomy Draw Site LEFT BRACHIAL 02/16/182042: Urine Color YEL, Urine Clarity CLEAR, Urine pH 6.0, Ur Specific [place] 1.020, Urine Protein 100 H, Urine Ketones NEG, Urine Nitrite NEG, Urine Bilirubin NEG, Urine Urobilinogen 0.2, Ur Leukocyte Esterase NEG, Ur Microscopic SEDIMENT EXAMINED, Urine RBC RARE, Urine WBC 1-3 H, Ur Epithelial Cells FEW, Urine Bacteria MANY H, Urine Hemoglobin TRACE-INTACT, Urine Glucose 100 H 02/16/18 1820: Anion Gap 12, Estimated GFR 11 L, BUN/Creatinine Ratio 21.7, Glucose 218 H, Calcium 9.3, Total Bilirubin 0.6, AST 30, ALT 21, Alkaline Phosphatase 426 H, Total Protein 6.4, Albumin 3.5, Globulin 2.9, Albumin/Globulin Ratio 1.2, PT 28.0 H, INR 2.54 H, CBC w Diff NO MAN DIFF REQ, RBC 3.23 L, MCV 83.6, MCH 28.5, MCHC 34.1, RDW 15.1 H, MPV 8.3, Gran % 80.7 H, Lymphocytes % 9.7 L, Monocytes % 7.0, Eosinophils % 2.2, Basophils % 0.4, Absolute Granulocytes 12.3 H, Absolute Lymphocytes 1.5, Absolute Monocytes 1.1 H, Absolute Eosinophils 0.3 , Absolute Basophils 0.1 Comments: 02/16/2018 7:05:11 PM patient has just returned from a CAT scan of the head and cervical spine due to a fluctuating mental status. According to the patient's daughter who has been a way for the last 2 weeks, the patient fell presumably just prior to arrival as she typically carries her phone with her and could've called immediately if she fell. The patient herself called 911. 02/16/2018 7:53:16 PM patient signed out to Dr. 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 02/16/2018 8:19:35 PM patient's case discussed with Dr. Krishnamurthy after signout. He recommends placing patient in a knee immobilizer possible. Given that the patient has additional studies ordered to rule out trauma, he has asked for an update once these tests are available. dr yo updated. (Marielle BARBOUR,Kalyan Gregory) Differential Diagnosis: C/T/L spine injury Diagnostic Imaging: Viewed by Me: Radiology Read, CT Scan. Discussed w/RAD: Radiology Read, CT Scan. Radiology Impression: PATIENT: GILL CUETO PRESENT AGE: 73 PATIENT ACCOUNT NO: [id number] : 47 LOCATION: [facility] ORDERING PHYSICIAN: Kalyan Palomares MD SERVICE DATE: 02/16/18 EXAM TYPE : CAT - CT ABD & PELVIS W/O IV CONTRAS; CT CHEST WO IV CONTRAST EXAMINATION: CT CHEST, ABDOMEN AND PELVIS WITHOUT CONTRAST. CLINICAL INFORMATION: Presumptive Dx : RIB FX, LUNG CONTUSION, PTX
Signs Symptoms: S/P FALL WITH LEFT POSTEROLATERAL CHEST ECCHYMOSIS
. COMPARISON: 08/26/2017 CT scan. TECHNIQUE: Multidetector volumetric imaging was performed from the thoracic inlet through the pubic symphysis without intravenous contrast. Sagittal and coronal reformatted images were obtained on the technologist workstation. DLP: 1427 mGy- cm FINDINGS: CHEST: Lungs: Linear basilar markings more likely due to atelectasis. 3 mm pulmonary nodule in the lateral right costophrenic sulcus. This is not definitively seen on the prior study although may have been obscured by basilar atelectasis at that time. Mediastinum: Prominent coronary artery and aortic calcification noted. Small hiatal hernia. No bulky hilar or mediastinal adenopathy. Mild heterogeneity to the thyroid gland. Pericardium/Pleura: Tiny pericardial and bilateral pleural effusions. The pleural effusions have significantly improved from the prior study. Chest Wall/Axilla: There is diffuse soft tissue stranding overlying the posterior lateral left chest wall with the suggestion of a small hematoma measuring 2.8 x 2.3 cm within the left chest wall musculature. This difficult to evaluate further on this noncontrast study. ABDOMEN/PELVIS: Peritoneal Space:No significant free air or free fluid identified. Liver, Gallbladder, Biliary Tree: The non contrast liver is normal in size, shape, and attenuation. No focal hepatic lesion or biliary ductal dilatation is present. Gallstones layering in the dependent portion of the otherwise unremarkable gallbladder. Pancreas: Unremarkable. Spleen: Unremarkable. Adrenal Glands: Unremarkable. Kidneys and Ureters: The kidneys are normal in size, shape, and attenuation. No hydronephrosis, hydroureter, or calculi seen. No perinephric stranding. Bladder: Unremarkable. Gastrointestinal Tract: Colon is redundant with a few scattered colonic diverticula but no evidence for diverticulitis. No obstructive changes seen. Normal-appearing appendix in the right lower quadrant. Visualized small bowel unremarkable Abdominal Wall: No significant hernia is appreciated. Lymphovascular Structures: Extensive vascular calcification. Pelvic Viscera: Unremarkable. Osseus Structures: The left proximal femur fracture is incompletely visualized on the CT scan but does extend through the lesser trochanter. Bilateral femoral heads are well-seated within the acetabula with associated degenerative changes. Multilevel degenerative changes seen throughout the spine with prominent osteophyte formation IMPRESSION: The proximal left femur fracture is incompletely assessed on this study. There is a soft tissue hematoma along the posterior lateral left chest wall as described above. I do not appreciate any visceral organ injury on this noncontrast study. Extensive chronic appearing changes are present as described above. DICTATED BY: Mgiue White MD DATE /TIME DICTATED:02/16/182015 RETAIL FIELD SUPERVISOR:HANNAH DATE/TIME TRANSCRIBED: 02/16/182015 CONFIDENTIAL, DO NOT COPY WITHOUT APPROPRIATE AUTHORIZATION. < Electronically signed in Other Vendor System> SIGNED BY: Migue White MD 02/16/182030, PATIENT: GILL CUETO PRESENT AGE: 73 PATIENT ACCOUNT NO: [id number] : 47 LOCATION: [facility] ORDERING PHYSICIAN: Kalyan Palomares MD SERVICE DATE: 02/16/18 EXAM TYPE : RAD - XRY-FEMUR, LEFT 2 VIEWS EXAMINATION: XR FEMUR, LEFT CLINICAL INFORMATION : Fall with pain and tenderness COMPARISON: None TECHNIQUE: AP and lateral views of the left femur were obtained. FINDINGS: Comminuted fracture the proximal left femoral diaphysis is seen. There is a large butterfly fragment projecting posteromedially. There is apex anterior angulation of the larger proximal and distal fragments. The proximal femoral fracture component appears to extend into the lesser trochanter which is displaced slightly medially and foreshortened. The femoral head is well-seated within the acetabulum. Marked degenerative changes in the knee. Prominent vascular calcification. IMPRESSION: Comminuted fracture of the proximal femoral diaphysis extending through the lesser trochanter with large butterfly fragment and angulation as described. DICTATED BY: Migue White MD DATE/TIME DICTATED:02/16/182005 RETAIL FIELD SUPERVISOR: HANNAH DATE/TIME TRANSCRIBED:02/16/182005 CONFIDENTIAL, DO NOT COPY WITHOUT APPROPRIATE AUTHORIZATION. <Electronically signed in Other Vendor System> SIGNED BY: Migue White MD 02/16/182011, PATIENT: GILL CUETO PRESENT AGE: 73 PATIENT ACCOUNT NO: [id number] : 47 LOCATION: [facility] ORDERING PHYSICIAN: Kalyan Palomares MD SERVICE DATE: 02/16/18 EXAM TYPE: CAT - CT CERV SPINE WO IV CONTRAST; CT HEAD WO IV CONTRAST EXAMINATION: CT OF THE HEAD AND CERVICAL SPINE WITHOUT CONTRAST CLINICAL INFORMATION: HX OF RECENT CVA, FALL TODAY, ? AMS. COMPARISON: 2017 CT. TECHNIQUE: Contiguous axial imaging was performed from the skull base to vertex. Soft tissue and bony algorithms were evaluated. Coronal reformatted images were obtained on the technologist's workstation. Following this, multiple serial thin slice helical CT scan images through the cervical spine were obtained. Soft tissue and bony algorithms were evaluated. Coronal and sagittal reformatted images were obtained on the technologist workstation. DLP: 999 mGy cm FINDINGS: Head CT: There is ventricular and sulcal prominence, similar to the prior study. Extensive age-related periventricular white matter changes are again seen with a distribution similar to the prior study. There is no evidence of acute intracranial hemorrhage or new territorial infarction when compared to the recent prior study. No abnormal mass-effect or midline shift is seen. Guerrero to white matter differentiation is otherwise preserved. No extra-axial fluid collections are identified. The osseous structures and soft tissues are normal. The mastoid air cells and visualized portions of the paranasal sinuses are well- aerated. Cervical spine CT: No prevertebral soft tissue swelling is appreciated. The bones are in normal anatomic alignment with no acute fracture or spondylolisthesis. Multilevel degenerative changes are seen with loss of disc height more prominent at C5/C6. Osteophyte formation more prominent from C4 to C7. Vertebral body heights and disc heights are otherwise preserved. Posterior elements are unremarkable. Visualized airway and lung apices are unremarkable. Visualized thyroid gland is heterogeneous in attenuation. Extensive vascular calcification IMPRESSION: Head CT: Chronic appearing and age-related changes similar to the recent prior head CT. With such acute small vessel ischemic change, acute superimposed infarct would be difficult to exclude. No intracranial hemorrhage identified. C-spine: Mild multilevel degenerative changes but no acute bony abnormality DICTATED BY: Migue White MD DATE/ TIME DICTATED:02/16/181908 RETAIL FIELD SUPERVISOR:HANNAH DATE/TIME TRANSCRIBED: 02/16/181908 CONFIDENTIAL, DO NOT COPY WITHOUT APPROPRIATE AUTHORIZATION. < Electronically signed in Other Vendor System> SIGNED BY: Migue White MD 02/16/181918 (Agustina BARBOUR,Salty Rueda) Departure Departure Condition: Stable Clinical Impression Primary Impression: Femur fracture, left Qualifiers: Encounter type: initial encounter Femur location: unspecified portion of femur Fracture type: closed Fracture morphology: unspecified fracture morphology Qualified Code: S72.92XA - Unspecified fracture of left femur, initial encounter for closed fracture Secondary Impressions: CVA (cerebral vascular accident) Qualifiers: CVA mechanism: unspecified Qualified Code: I63.9 - Cerebral infarction, unspecified Referrals: Andrzej BARBOUR,Juan Mak (PCP/Family) (Marielle BARBOUR,Kalyan Gregory) Departure Disposition: STILL A PATIENT Departure Forms: Customer Survey General Discharge Information Comments 02/16/18, pt signed out to me at 7pm. 02/16/18, 21:31.... discussed with dr. garcia (neurology)... consideration of fat embolus is possible. Right gaze preference may be embolus on right hemisphere vs seizure focus on left. supportive measures indicated. 02/16/18, 21:37.... updated dr. krishnamurthy.... surgical PA to evaluate patient as well. 02/16/18, 22:20... discussed with hospitalist... due to patient complexity, will transfer to [facility]... discussed with dr. yap ([facility]) who accepts. (Agustina BARBOUR,Salty Rueda) Critical Care Note Critical Care Note Critical Care Time: 30-74 min (Agustina BARBOUR,Salty Rueda)
[2018-02-16 18:34] LABS: ABSOLUTE BASOPHIL COUNT 0.1 /CUMM (0.0-0.2); ABSOLUTE EOSINOPHIL COUNT 0.3 /CUMM (0.0-0.7); ABSOLUTE GRANULOCYTE CT 12.3 /CUMM (1.4-6.5); ABSOLUTE LYMPH COUNT 1.5 /CUMM (1.2-3.4); ABSOLUTE MONOCYTE COUNT 1.1 /CUMM (0.10-0.60); BASOPHIL % 0.4 % (0.0-2.0); EOSINOPHIL % 2.2 % (0-5); GRANULOCYTE % 80.7 % (42.2-75.2); MEAN CORPUSCULAR HGB 28.5 PG (27.0-31.0); MEAN CORPUSCULAR HGB CONC 34.1 G/DL (33.0-37.0); MEAN CORPUSCULAR VOLUME 83.6 FL (81.0-99.0); MEAN PLATELET VOLUME 8.3 FL (7.4-10.4); PLATELET COUNT 229 /CUMM (130-400); RBC DISTRIBUTION WIDTH 15.1 % (11.5-14.5); RED BLOOD CELL CT 3.23 /CUMM (4.20-5.40); WHITE BLOOD CELL COUNT 15.2 /CUMM (4.8-10.8)
--- NOTE | 2018-02-16 19:19 | CT SCAN REPORT ---
EXAMINATION: CT OF THE HEAD AND CERVICAL SPINE WITHOUT CONTRAST CLINICAL INFORMATION: HX OF RECENT CVA, FALL TODAY, ? AMS. COMPARISON: 02/08/2018 CT. TECHNIQUE: Contiguous axial imaging was performed from the skull base to vertex. Soft tissue and bony algorithms were evaluated. Coronal reformatted images were obtained on the technologist's workstation. Following this, multiple serial thin slice helical CT scan images through the cervical spine were obtained. Soft tissue and bony algorithms were evaluated. Coronal and sagittal reformatted images were obtained on the technologist workstation. DLP: 999 mGy cm FINDINGS: Head CT: There is ventricular and sulcal prominence, similar to the prior study. Extensive age-related periventricular white matter changes are again seen with a distribution similar to the prior study. There is no evidence of acute intracranial hemorrhage or new territorial infarction when compared to the recent prior study. No abnormal mass-effect or midline shift is seen. Guerrero to white matter differentiation is otherwise preserved. No extra-axial fluid collections are identified. The osseous structures and soft tissues are normal. The mastoid air cells and visualized portions of the paranasal sinuses are well-aerated. Cervical spine CT: No prevertebral soft tissue swelling is appreciated. The bones are in normal anatomic alignment with no acute fracture or spondylolisthesis. Multilevel degenerative changes are seen with loss of disc height more prominent at C5/C6. Osteophyte formation more prominent from C4 to C7. Vertebral body heights and disc heights are otherwise preserved. Posterior elements are unremarkable. Visualized airway and lung apices are unremarkable. Visualized thyroid gland is heterogeneous in attenuation. Extensive vascular calcification IMPRESSION: Head CT: Chronic appearing and age-related changes similar to the recent prior head CT. With such acute small vessel ischemic change, acute superimposed infarct would be difficult to exclude. No intracranial hemorrhage identified. C-spine: Mild multilevel degenerative changes but no acute bony abnormality
--- NOTE | 2018-02-16 20:12 | RADIOLOGY REPORT ---
EXAMINATION: XR FEMUR, LEFT CLINICAL INFORMATION: Fall with pain and tenderness COMPARISON: None TECHNIQUE: AP and lateral views of the left femur were obtained. FINDINGS: Comminuted fracture the proximal left femoral diaphysis is seen. There is a large butterfly fragment projecting posteromedially. There is apex anterior angulation of the larger proximal and distal fragments. The proximal femoral fracture component appears to extend into the lesser trochanter which is displaced slightly medially and foreshortened. The femoral head is well-seated within the acetabulum. Marked degenerative changes in the knee. Prominent vascular calcification. IMPRESSION: Comminuted fracture of the proximal femoral diaphysis extending through the lesser trochanter with large butterfly fragment and angulation as described.
--- NOTE | 2018-02-16 20:31 | CT SCAN REPORT ---
EXAMINATION: CT CHEST, ABDOMEN AND PELVIS WITHOUT CONTRAST. CLINICAL INFORMATION: Presumptive Dx: RIB FX, LUNG CONTUSION, PTX
Signs Symptoms: S/P FALL WITH LEFT POSTEROLATERAL CHEST ECCHYMOSIS
. COMPARISON: 08/26/2017 CT scan. TECHNIQUE: Multidetector volumetric imaging was performed from the thoracic inlet through the pubic symphysis without intravenous contrast. Sagittal and coronal reformatted images were obtained on the technologist workstation. DLP: 1427 mGy-cm FINDINGS: CHEST: Lungs: Linear basilar markings more likely due to atelectasis. 3 mm pulmonary nodule in the lateral right costophrenic sulcus. This is not definitively seen on the prior study although may have been obscured by basilar atelectasis at that time. Mediastinum: Prominent coronary artery and aortic calcification noted. Small hiatal hernia. No bulky hilar or mediastinal adenopathy. Mild heterogeneity to the thyroid gland. Pericardium/Pleura: Tiny pericardial and bilateral pleural effusions. The pleural effusions have significantly improved from the prior study. Chest Wall/Axilla: There is diffuse soft tissue stranding overlying the posterior lateral left chest wall with the suggestion of a small hematoma measuring 2.8 x 2.3 cm within the left chest wall musculature. This difficult to evaluate further on this noncontrast study. ABDOMEN/PELVIS: Peritoneal Space:No significant free air or free fluid identified. Liver, Gallbladder, Biliary Tree: The non contrast liver is normal in size, shape, and attenuation. No focal hepatic lesion or biliary ductal dilatation is present. Gallstones layering in the dependent portion of the otherwise unremarkable gallbladder. Pancreas: Unremarkable. Spleen: Unremarkable. Adrenal Glands: Unremarkable. Kidneys and Ureters: The kidneys are normal in size, shape, and attenuation. No hydronephrosis, hydroureter, or calculi seen. No perinephric stranding. Bladder: Unremarkable. Gastrointestinal Tract: Colon is redundant with a few scattered colonic diverticula but no evidence for diverticulitis. No obstructive changes seen. Normal-appearing appendix in the right lower quadrant. Visualized small bowel unremarkable Abdominal Wall: No significant hernia is appreciated. Lymphovascular Structures: Extensive vascular calcification. Pelvic Viscera: Unremarkable. Osseus Structures: The left proximal femur fracture is incompletely visualized on the CT scan but does extend through the lesser trochanter. Bilateral femoral heads are well-seated within the acetabula with associated degenerative changes. Multilevel degenerative changes seen throughout the spine with prominent osteophyte formation IMPRESSION: The proximal left femur fracture is incompletely assessed on this study. There is a soft tissue hematoma along the posterior lateral left chest wall as described above. I do not appreciate any visceral organ injury on this noncontrast study. Extensive chronic appearing changes are present as described above.
[2018-02-16 21:26] VITALS: BP 148/65
[2018-02-16] MEDS ORDERED: POTASSIUM CHLO20 ME2 (22:24)
== END 2018-02-16 23:01 | disposition short-term general hospital (02) ==
LOC: ERH 17:20
PROVIDERS: Emergency Medicine
DX: S72.492A Other fracture of lower end of left femur, initial encounter for closed fracture (principal); I63.9 Cerebral infarction, unspecified; W19.XXXA Unspecified fall, initial encounter; Y92.000 Kitchen of unspecified non-institutional (private) residence as the place of occurrence of the external cause; Y93.G1 Activity, food preparation and clean up
CPT/HCPCS: 73552; 74176; 81001; 93005; 93010; 96374; 96375; 99291; J0131; J2405